=== PATIENT | female | born 1960 | race Caucasian/White ===

== ENCOUNTER 2016-06-19 19:10 | Emergency (ER) | payer MEDICAID ==
[~2016-06-19] VITALS: Ht 157.5 cm; Wt 90.7 kg
[~2016-06-19 19:10] MED LIST: ALBU17AE23 IH; AMIT25TA9 PO; AMIT75TA2 PO; ARPZ20T; AZIT-21 PO; B/P; CETI10CA PO; CETI10TA17 PO; CIPR-225 PO; CIPR500T78 PO; CPR500T PO; DICY20TA10 PO; ELIMITE TOP; FLUT16SP22 NS; HYDR-1231 PO; HYDR-34; HYDR-700 PO; HYDR50CA3 PO; IVER3TAB2 PO; LORA10TA7 PO; MECL-106 PO; MOME15CR TP; MONT10TA24; MONT10TA24 PO; NAPR-243 PO; NAPR250T34; NAPR500T3 PO; OMEP40CA36 PO; ONDA2VIA PO; ONDN4T PO; PERM60CR4 TP; PRD20T PO; PROP1TAB77; PROP1TAB77 PO; PROP40TA5 PO; RANI150C11 PO; RANI150T11 PO; RT-ALBUINH INH; SNN187T PO; SULF-222 PO; SULF1TAB34 PO; TRAM50TA2 PO; TRAZ150T42; [UNRECOGNIZED DRUG - CODE] PO; [UNRECOGNIZED DRUG - CODE] TP
--- NOTE | 2016-06-19 19:23 | ED GI ---
General Chief Complaint: Abdominal/GI Problems Stated Complaint: RECTAL BLEEDING, PAIN Nursing Triage Note: patient reports having RLQ abdomen pain x 1, patient reports pain is with with BM and they stink real bad, patient reports her BM smells bad Sepsis Screen: Possible Sepsis Risk Source of Information: Patient Exam Limitations: No Limitations History of Present Illness Time Seen By Provider: 19:23 Initial Comments To ER with right lower quadrant abdominal pain for one week. States that she has increased rectal pain with each bowel movement and bleeding. Allergies and Home Medications Allergies Coded Allergies: Penicillins (Verified Allergy, Unknown, 08/20/15) tuberculin, purified protein deriva (Verified Adverse Reaction, Mild, 08/19) Home Medications Albuterol Sulfate 8.5 Gm Hfa.aer.ad 2 PUFF INH Q6H PRN PRN SHORTNESS OF BREATH ( Reported) Amitriptyline HCl 25 Mg Tablet 75 MG PO HS (Reported) TAKES 3 (25MG) TABLETS Cetirizine HCl 10 Mg Tablet 10 MG PO DAILY (Reported) Fluticasone Propionate 16 Gm [place].susp 1 SPRAY NS BID (Reported) Meclizine HCl 25 Mg Tablet 25 MG PO QID PRN PRN NAUSEA/DIZZINESS (Reported) Montelukast Sodium 10 Mg Tablet 10 MG PO HS (Reported) Naproxen 500 Mg Tablet 500 MG PO BID (Reported) Omeprazole 40 Mg Capsule.dr 40 MG PO DAILY (Reported) Propranolol HCl 40 Mg Tablet 40 MG PO BID (Reported) Ranitidine HCl 150 Mg Tablet 150 MG PO BID (Reported) Sulfamethoxazole/Trimethoprim 1 Each Tablet #10 1 EACH PO BID Prescribed by: BISI BUCK on 06/19/162113 Review of Systems Constitutional: see HPINo chills, No fever EENTM: No Symptoms Reported Respiratory: No Symptoms Reported Cardiovascular: No Symptoms Reported Gastrointestinal: See HPI Abdominal Pain Genitourinary: No Symptoms Reported Musculoskeletal: no symptoms reported Skin: no symptoms reported Psychiatric/Neurological: No Symptoms Reported Endocrine: No Symptoms Reported Hematologic/Lymphatic: No Symptoms Reported Past Jojkvxb-Sggzsh-Atciyh Hx Patient Social History Alcohol Use: Denies Use Recreational Drug Use: No Smoking Status: Never a Smoker Recent Foreign Travel: No Contact w/Someone Who Travel: No Recent Infectious Disease Expo: No Recent Hopitalizations: No Immunizations Up To Date Tetanus Booster (TDap): Unknown Date of Pneumonia Vaccine: Feb 01, 2012 Date of Influenza Vaccine: Jan 31, 2014 Seasonal Allergies Seasonal Allergies: No Surgeries HX Surgeries: Yes Surgeries: Appendectomy, Section, Gallbladder, 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, Oophorectomy, 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 Respiratory Hx Respiratory Disorders: Yes Respiratory Disorders: Asthma, Sleep Apnea, COPD Cardiovascular Hx Cardiac Disorders: Yes Cardiac Disorders: Hypertension, Syncope Neurological Hx Neurological Disorders: Yes Neurological Disorders: Headaches /Migraines, Seizure Disorder, Vertigo Reproductive System Hx Reproductive Disorders: Yes (Hyst) Sexually Transmitted Disease: No HIV/AIDS: No Female Reproductive Disorders: Denies 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, 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 Genitourinary Hx Genitourinary Disorders: Yes Genitourinary Disorders: UTI-Chronic Gastrointestinal Hx Gastrointestinal Disorders: No Gastrointestinal Disorders: Ulcer Musculoskeletal Hx Musculoskeletal Disorders: No Musculoskeletal Disorders: Chronic Back Pain Endocrine Hx Endocrine Disorders: No Endocrine Disorders: Diabetes, Non-Insulin dep HEENT HX ENT Disorders: No HEENT Disorders: Tinnitis Loss of Vision: Denies Hearing Impairment: Denies Cancer Hx Cancer: No Psychosocial Hx Psychiatric Problems: Yes (EXTENSIVE PSYCH ISSUES, MULTIPLE PSYCH ADMITS, INCLUDING [place]) Behavioral Health Disorders: Anxiety, Suicide Attempts, Depression Integumentary HX Skin/Integumentary Disorder: No Blood Transfusions Hx Blood Disorders: No Adverse Reaction to a Blood Tr: No Family Medical History Significant Family History: No Pertinent Family Hx Family Medial History: Congenital heart disease G8 SISTER (HOLE IN HEART ) Neoplasm 19 MOTHER (STOMACH ) G8 BROTHER (STOMACH) Physical Exam Vital Signs VS - Last 72 Hours, by Label 06/19/16 06/19/16 19:15 20:28 Temp 100.2 98.7 Pulse 128 109 Resp 24 18 B/P 147/117 147/102 Pulse Ox 98 98 O2 Delivery Room Air Room Air Capillary Refill : Less Than 3 Seconds General Appearance: WD/WN no apparent distress HEENT: PERRL/EOMI normal ENT inspection Neck: non-tender full range of motion Respiratory: no respiratory distress no accessory muscle use Cardiovascular: no murmur tachycardia Gastrointestinal: normal bowel sounds soft tenderness (rlq) Extremities: normal range of motion non-tender Neurologic/Psychiatric: alert normal mood/affect oriented x 3 other (very anxious appearing, tearful and crying, talks constantly, moans) Skin: normal color warm/dry Progress/Results/Core Measures Results/Orders Lab Results Laboratory Tests Test 06/19/16 17:15 06/19/16 19:14 Range/Units Alanine Aminotransferase (ALT/SGPT) 33 0-55 U/L Albumin 4.6 H 3.2-4.5 G/DL Alkaline Phosphatase 73 40-136 U/L Anion Gap 16 H 5-14 MMOL/L Aspartate Amino Transf (AST/SGOT) 23 5-34 U/L BUN/Creatinine Ratio 13 Band Neutrophils 1 % Basophils # (Auto) 0.0 0.0-0.1 10^3/uL Basophils % (Manual) 0 % Basophils (%) (Auto) 0 0-10 % Blood Morphology Comment NORMAL Blood Urea Nitrogen 13 7-18 MG/DL Calcium Level 9.6 8.5-10.1 MG/DL Carbon Dioxide Level 19 L 21-32 MMOL/L Chloride Level 106 98-107 MMOL/L Creatinine 1.01 0.60-1.30 MG/DL Eosinophils # (Auto) 0.2 0.0-0.3 10^3/uL Eosinophils % (Manual) 1 % Eosinophils (%) (Auto) 1 0-10 % Estimat Glomerular Filtration Rate 57 Glucose Level 122 H 70-105 MG/DL Hematocrit 37 35-52 % Hemoglobin 12.7 11.5-16.0 G/DL Lipase 12 8-78 U/L Lymphocytes # (Auto) 5.1 H 1.0-4.0 X 10^3 Lymphocytes % (Manual) 42 % Lymphocytes (%) (Auto) 29 12-44 % Mean Corpuscular Hemoglobin 31 25-34 PG Mean Corpuscular Hemoglobin Concent 34 32-36 G/DL Mean Corpuscular Volume 90 80-99 FL Mean Platelet Volume 8.4 7.4-10.4 FL Monocytes # (Auto) 1.1 H 0.0-1.0 X 10^3 Monocytes % (Manual) 5 % Monocytes (%) (Auto) 7 0-12 % Neutrophils # (Auto) 11.0 H 1.8-7.8 X 10^3 Neutrophils % (Manual) 51 % Neutrophils (%) (Auto) 63 42-75 % Platelet Count 443 H 130-400 10^3/uL Potassium Level 4.0 3.6-5.0 MMOL/L Red Blood Count 4.11 L 4.35-5.85 10^6/uL Red Cell Distribution Width 13.4 10.0-14.5 % Sodium Level 141 135-145 MMOL/L Total Bilirubin 0.4 0.1-1.0 MG/DL Total Protein 7.7 6.4-8.2 G/DL White Blood Count 17.4 H 4.3-11.0 10^3/uL Ur Tricyclic Antidepressants Screen NEGATIVE NEGATIVE Urine Amphetamines Screen NEGATIVE NEGATIVE Urine Bacteria FEW H /HPF Urine Barbiturates Screen NEGATIVE NEGATIVE Urine Benzodiazepines Screen NEGATIVE NEGATIVE Urine Bilirubin NEGATIVE NEGATIVE Urine Cannabinoids Screen NEGATIVE NEGATIVE Urine Casts NONE /LPF Urine Clarity VERY CLOUDY H Urine Cocaine Screen NEGATIVE NEGATIVE Urine Color YELLOW Urine Crystals NONE /LPF Urine Culture Indicated YES Urine Glucose (UA) NEGATIVE NEGATIVE Urine Ketones 1+ H NEGATIVE Urine Leukocyte Esterase 3+ H NEGATIVE Urine Methadone Screen NEGATIVE NEGATIVE Urine Methamphetamines Screen NEGATIVE NEGATIVE Urine Mucus NEGATIVE /LPF Urine Nitrite NEGATIVE NEGATIVE Urine Opiates Screen NEGATIVE NEGATIVE Urine Oxycodone Screen NEGATIVE NEGATIVE Urine Phencyclidine Screen NEGATIVE NEGATIVE Urine Propoxyphene Screen NEGATIVE NEGATIVE Urine Protein 2+ H NEGATIVE Urine RBC 5-10 H /HPF Urine RBC (Auto) 2+ H NEGATIVE Urine Specific [place] 1.025 H 1.016-1.022 Urine Squamous Epithelial Cells 5-10 /HPF Urine Urobilinogen NORMAL NORMAL MG/DL Urine WBC 50-100 H /HPF Urine pH 5 5-9 My Orders Orders-BISI BUCK APRN Cbc With Automated Diff (06/19/16 19:13) Comprehensive Metabolic Panel (06/19/16 19:13) Lipase (06/19/16 19:13) Ua Culture If Indicated (06/19/16 19:13) Drug Screen Stat (Urine) (06/19/16 19:13) Saline Lock/Iv-Start (06/19/16 19:13) Ns Iv 1000 Ml (Sodium Chloride 0.9%) (06/19/16 19:30) Fentanyl Injection (Sublimaze Injection (06/19/16 19:30) Manual Differential (06/19/16 17:15) Urine Culture (06/19/16 19:14) Ct Abdomen/Pelvis W Wo (06/19/16 19:52) Iohexol Injection (Omnipaque 350 Mg/Ml 1 (06/19/16 20:00) Ns (Ivpb) (Sodium Chloride 0.9% Ivpb Bag (06/19/16 20:00) Fentanyl Injection (Sublimaze Injection (06/19/16 20:00) Ceftriaxone Injection (Rocephin Injectio (06/19/16 20:45) Lorazepam Injection (Ativan Injection) (06/19/16 20:45) Ketorolac Injection (Toradol Injection) (06/19/16 20:45) Medications Given in ED Current Medications Medications Dose Ordered Sig/Anabel Route Start Time Stop Time Status Last Admin Dose Admin Ceftriaxone Sodium/Sodium Chloride 50 ml @ 100 mls/hr ONCE ONCE IV 06/19/16 20:45 06/19/16 21:14 DC 06/19/16 20:51 100 MLS/HR Fentanyl Citrate 50 mcg ONCE ONCE IVP 06/19/16 19:30 06/19/16 19:31 DC 06/19/16 19:35 50 MCG Fentanyl Citrate 50 mcg 50 mcg ONCE ONCE IVP 06/19/16 20:00 06/19/16 20:01 DC 06/19/16 20:00 50 MCG Iohexol 100 ml ONCE ONCE IV 06/19/16 20:00 06/19/16 20:19 DC 06/19/16 19:56 100 ML Ketorolac Tromethamine 30 mg ONCE ONCE IVP 06/19/16 20:45 06/19/16 20:46 DC 06/19/16 20:51 30 MG Lorazepam 1 mg ONCE ONCE IVP 06/19/16 20:45 06/19/16 20:46 DC 06/19/16 20:51 1 MG Sodium Chloride 100 ml ONCE ONCE IV 06/19/16 20:00 06/19/16 20:19 DC 06/19/16 19:56 80 ML Vital Signs/I&O Vital Sign - Last 12Hours 06/19/16 06/19/16 19:15 20:28 Temp 100.2 98.7 Pulse 128 109 Resp 24 18 B/P 147/117 147/102 Pulse Ox 98 98 O2 Delivery Room Air Room Air Blood Pressure Mean: 127 Diagnostic Imaging Diagonstic Imaging: CT Comments NAME: LAVELLE RIVERS [facility] REC#: [id number] PT STATUS: REG ER : 1960 PHYSICIAN: BISI BUCK APRN ADMIT DATE: 06/19/16/ER Signed Date of Exam:06/19/16 CT ABDOMEN/PELVIS W WO PROCEDURE: CT abdomen and pelvis with and without contrast. TECHNIQUE: Precontrast acquisitions were acquired through the abdomen and pelvis. Multiple contiguous axial images were obtained through the abdomen and pelvis after the administration of intravenous contrast. INDICATION: Right lower quadrant abdominal pain. COMPARISON: 01/06/2016. FINDINGS: The lung bases are clear. Gallbladder is surgically absent. The liver, spleen, pancreas, adrenal glands, kidneys, vascular structures, and bowel are normal. There is no free air or free fluid. The appendix and uterus are surgically absent. Distal ureters and urinary bladder are grossly unremarkable. Osseous structures are intact. There is no inflammatory process. IMPRESSION: Surgically absent gallbladder, appendix, and uterus. Negative CT abdomen and pelvis. Dictated by: Dictated on workstation # [id number] Dict: 06/19/162026 Trans: 06/19/162052 [id number] Interpreted by: YASSINE BRIONES Electronically signed by: YASSINE BRIONES 06/19/162055 Departure Communication Progress Notes 2044-continues to cry in bed. Advised her that she does not have an appendix to cause pain. We will give additional pain medication including Toradol, Ativan to help her relax and Rocephin for the bladder infection and discharge home. 2111-heart rate now less than 100, blood pressure 120/60, patient laughing and smiling and states that she feels much better. I did notify Dr. Arroyo of exam and findings and my plan to discharge the patient home. She will arrange for follow-up next week. Impression Impression: Primary Impression: Urinary tract infection Qualified Code: N30.01 - Acute cystitis with hematuria Additional Impression: Anxiety Disposition: HOME, SELF-CARE Condition: Stable Departure-Patient Inst. Decision time for Depature: 21:13 Referrals: EDUARDO GRUBER (PCP/Family) Primary Care Physician Patient Instructions: Urinary Tract Infection, Adult (DC) Add. Discharge Instructions: 1. Drink plenty of fluids 2. Take your antibiotics as directed 3. Return to ER for any worsening All discharge instructions reviewed with patient and/or family. Voiced understanding. Scripts Sulfamethoxazole/Trimethoprim (Bactrim Ds Tablet)1 Each Tablet1 Each PO BID #10 TAB Prov:BUCKBISI CHAMBERS APRN 06/19/16 BISI BUCK APRN Jun 19, 2016 19:23
[2016-06-19 19:26] LABS: BASOPHILS % (AUTO) 0 % (0-10); EOSINOPHILS # (AUTO) 0.2 10^3/uL (0.0-0.3); EOSINOPHILS % (AUTO) 1 % (0-10); LYMPHOCYTES # (AUTO) 5.1 X 10^3 (1.0-4.0); LYMPHOCYTES % (AUTO) 29 % (12-44); MEAN CORPUSCULAR HEMOGLOBIN 31 PG (25-34); MEAN CORPUSCULAR HGB CONC 34 G/DL (32-36); MEAN CORPUSCULAR VOLUME 90 FL (80-99); MEAN PLATELET VOLUME 8.4 FL (7.4-10.4); MONOCYTES # (AUTO) 1.1 X 10^3 (0.0-1.0); MONOCYTES % (AUTO) 7 % (0-12); NEUTROPHILS % (AUTO) 63 % (42-75); PLATELET COUNT 443 10^3/uL (130-400); RED BLOOD COUNT 4.11 10^6/uL (4.35-5.85); RED CELL DISTRIBUTION WIDTH 13.4 % (10.0-14.5); WHITE BLOOD COUNT 17.4 10^3/uL (4.3-11.0)
[2016-06-19 19:27] LABS: BILIRUBIN,URINE NEGATIVE (NEGATIVE); KETONES,URINE 1+ (NEGATIVE); LEUKOCYTE ESTERASE ,URINE 3+ (NEGATIVE); NITRITE,URINE NEGATIVE (NEGATIVE); PH,URINE 5 (5-9); PROTEIN,URINE 2+ (NEGATIVE); UROBILINOGEN,URINE NORMAL (NORMAL)
[2016-06-19] MEDS ORDERED: fentaNYL INJECTION 100 MCG/2 ML AMP IVP ONE ×2 (19:30→20:00)
[2016-06-19] MEDS ORDERED: NS IV 1000 ML 1,000 ML IV SCH (19:30)
[2016-06-19 19:40] LABS: WBC,URINE 50-100 /HPF
[2016-06-19 19:43] LABS: BAND NEUTROPHILS 1 %; BASOPHILS % (MANUAL) 0 %; EOSINOPHILS % (MANUAL) 1 %; LYMPHOCYTES % (MANUAL) 42 %; NEUTROPHILS % (MANUAL) 51 %
[2016-06-19 19:46] LABS: ALBUMIN 4.6 G/DL (3.2-4.5); BILIRUBIN,TOTAL 0.4 MG/DL (0.1-1.0); CALCIUM 9.6 MG/DL (8.5-10.1); CREATININE SERUM 1.01 MG/DL (0.60-1.30); TOTAL PROTEIN 7.7 G/DL (6.4-8.2)
[2016-06-19] MEDS ORDERED: NS 100 ML (IVPB) BAG IV ONE (20:00)
[2016-06-19] MEDS ORDERED: IOHEXOL 350 MG/ML 100 ML (OMNIPAQUE 350) VIAL IV ONE (20:00)
[2016-06-19 20:28] VITALS: BP 147/102
--- NOTE | 2016-06-19 20:34 | Diagnostic Imaging Report ---
PROCEDURE: CT abdomen and pelvis with and without contrast. TECHNIQUE: Precontrast acquisitions were acquired through the abdomen and pelvis. Multiple contiguous axial images were obtained through the abdomen and pelvis after the administration of intravenous contrast. INDICATION: Right lower quadrant abdominal pain. COMPARISON: 01/06/2016. FINDINGS: The lung bases are clear. Gallbladder is surgically absent. The liver, spleen, pancreas, adrenal glands, kidneys, vascular structures, and bowel are normal. There is no free air or free fluid. The appendix and uterus are surgically absent. Distal ureters and urinary bladder are grossly unremarkable. Osseous structures are intact. There is no inflammatory process. IMPRESSION: Surgically absent gallbladder, appendix, and uterus. Negative CT abdomen and pelvis. Dictated by: Dictated on workstation # [id number]
[2016-06-19] MEDS ORDERED: KETOROLAC 30 MG/ML VIAL IVP ONE (20:45)
[2016-06-19] MEDS ORDERED: cefTRIAXone INJECTION 1,000 MG in NS (IVPB) 50 ML IV ONE (20:45)
[2016-06-19] MEDS ORDERED: LORazepam INJ 2 MG/ML (ATIVAN) VIAL IVP ONE (20:45)
[2016-06-19] MEDS ORDERED: SULF1TAB35 PO (21:14)
[2016-06-19 21:23] VITALS: BP 127/86
[2016-06-22] MEDS ORDERED: CLIN300C11 PO (10:54)
== END 2016-06-19 21:25 | disposition home or self-care (01) ==
LOC: EDUNIT# 19:10 → ER 19:12
DX: N39.0 Urinary tract infection, site not specified (principal); F41.9 Anxiety disorder, unspecified; J44.9 Chronic obstructive pulmonary disease, unspecified; I10 Essential (primary) hypertension; E11.9 Type 2 diabetes mellitus without complications; Z90.49 Acquired absence of other specified parts of digestive tract; Z90.710 Acquired absence of both cervix and uterus; Z90.89 Acquired absence of other organs; Z79.899 Other long term (current) drug therapy
CPT/HCPCS: 36415; 74178; 80053; 80306; 81000; 83690; 85007; 85027; 87088; 96361; 96365; 96375

== ENCOUNTER 2016-07-08 09:22 | Outpatient (CLI) | payer MEDICAID ==
[~2016-07-08] VITALS: Ht 157.5 cm; Wt 90.7 kg
[~2016-07-08 09:22] MED LIST changes: +CLIN300C11 PO; +SULF1TAB35 PO
== END 2016-07-08 09:49 ==
LOC: PREOP 09:22
PROVIDERS: ATTEND Surgery
DX: Z01.818 Encounter for other preprocedural examination (principal); K62.89 Other specified diseases of anus and rectum; K62.5 Hemorrhage of anus and rectum

== ENCOUNTER 2016-07-13 09:22 | Day surgery (SDC) | payer MEDICAID ==
[~2016-07-13] VITALS: Ht 157.5 cm; Wt 84.4 kg
[2016-07-13 09:40] VITALS: BP 174/94
[2016-07-13] MEDS ORDERED: MIDAZOLAM 2 MG/2 ML (VERSED) VIAL IVP PRN ×2 (09:45)
[2016-07-13] MEDS ORDERED: NS IV 500 ML 500 ML IV ONE (09:45)
[2016-07-13] MEDS ORDERED: NS IV 500 ML 500 ML IV PRN (09:45)
[2016-07-13] MEDS ORDERED: fentaNYL INJECTION 100 MCG/2 ML AMP IVP PRN ×2 (09:45)
[2016-07-13] MEDS ORDERED: NALOXONE 0.4 MG/ML 1 ML (NARCAN) VIAL IVP PRN ×2 (09:45)
[2016-07-13] MEDS ORDERED: FLUMAZENIL (ROMAZICON) 0.1 MG/ML 5 ML VIAL INJ PRN ×2 (09:45)
--- NOTE | 2016-07-13 10:28 | Pre-Op Note & Conscious Sedat ---
Pre-Operative Progress Note H&P Reviewed The H&P was reviewed, patient examined and no changes noted. Date H&P Reviewed: Jul 13, 2016 Time H&P Reviewed: 10:27 Pre-Op Diagnosis: rectal bleeding Conscious Sedation Pre-Proced ASA Class: 3 Airway Mallampati Classification: (apache appropriate class) I. II. III, IV Lungs Heart ASA score ASA 1: a normal healthy patient ASA 2: a patient with a mild systemic disease (mid diabetes, controlled hypertension, obesity ASA 3: a patient with a severe systemic disease that limits activity (angina , COPD, prior Myocardial infarction) ASA 4: a patient with an incapacitating disease that is a constant threat to life (CHF, renal failure) ASA 5: a moribund patient not expected to survive 24 hrs. (ruptured aneurysm) ASA 6: a declared brain patient whose organs are being harvested. For emergent operations, add the letter E after the classification Grade 2 Sedation Plan: Discussed options with patient/fam Note The patient is an appropriate candidate to undergo the planned procedure, sedation, and anesthesia. The patient immediately re-assessed prior to indication. ARUN CABRERA MD Jul 13, 2016 10:28 am
[2016-07-13] MEDS ORDERED: MIDAZOLAM 2 MG/2 ML (VERSED) VIAL ONE (10:46)
[2016-07-13] MEDS ORDERED: proPOfol 200 MG/20 ML (DIPRIVAN) VIAL IV ONE (10:46)
--- NOTE | 2016-07-13 11:02 | Progress Note-Post Operative ---
Post-Operative Progess Note Pre-Operative Diagnosis rectal bleeding Post-Operative Diagnosis inadequate bowel prep Post-Op Procedure Note Date of Procedure: Jul 13, 2016 Name of Procedure: incomplete colonoscopy Anesthesia Type conscious sedation ARUN CABRERA MD Jul 13, 2016 11:02 am
--- NOTE | 2016-07-13 11:04 | Discharge Inst-Simple/Standard ---
Discharge Inst-Standard Discharge Medications New, Converted or Re-Newed RX: Other Patient Instructions/Follow Up Plan of Care/Instructions/FU: please reschedule with 2 days of bowel preparation Activity as Tolerated: Yes Discharge Diet: No Restrictions ARUN CABRERA MD Jul 13, 2016 11:04
[2016-07-13 11:25] VITALS: BP 140/68
[2016-07-13 11:55] VITALS: BP 140/68
--- NOTE | 2016-07-13 11:59 | OPERATIVE REPORT ---
PROCEDURE PHYSICIAN: ARUN CABRERA DATE OF PROCEDURE: 07/13/2016 PROCEDURE: Incomplete colonoscopy. SURGEON: Dr. Cabrera. INDICATION FOR THE PROCEDURE: This lady came in for colonoscopy to evaluate rectal bleeding. Informed consent was obtained after reviewing the procedure in detail. DESCRIPTION OF PROCEDURE: She was placed in left lateral decubitus position and her vital signs were monitored. Conscious sedation was achieved by our INSULATION CUTTER, using propofol infusion. Digital rectal examination revealed solid stools. The flexible colonoscope was introduced into the rectum and advanced to the distal sigmoid colon. Bowel preparation was very poor. Therefore, further examination could not be completed. Solid fecal material was encountered throughout the rectum and the distal sigmoid colon. She tolerated the procedure reasonably well and was taken back to the nursing area in a stable condition. IMPRESSION: 1. Rectal bleeding. 2. Incomplete colonoscopy due to poor bowel preparation. RECOMMENDATION: Repeat with 2 days of bowel preparation. Job ID: [id number] Dictated Date: 07/13/2016 11:01:59 Rod Machine Operator Date: 07/13/2016 11:56:34 / luisa CISSE
[2016-07-13 14:05] VITALS: BP 140/68
== END 2016-07-13 12:05 | disposition home or self-care (01) ==
LOC: ENDO 09:22
PROVIDERS: ATTEND Surgery
DX: K62.5 Hemorrhage of anus and rectum (principal)
CPT/HCPCS: 82962

== ENCOUNTER 2016-07-23 06:20 | Outpatient (CLI) | payer MEDICAID ==
[~2016-07-23] VITALS: Ht 157.5 cm; Wt 84.4 kg
== END 2016-07-23 17:02 ==
LOC: PREOP 06:20
PROVIDERS: ATTEND Surgery
DX: Z01.818 Encounter for other preprocedural examination (principal); K62.89 Other specified diseases of anus and rectum; K62.5 Hemorrhage of anus and rectum

== ENCOUNTER 2016-07-27 09:45 | Day surgery (SDC) | payer MEDICAID ==
[2016-07-27 10:00] VITALS: BP 132/94
[2016-07-27] MEDS ORDERED: fentaNYL INJECTION 100 MCG/2 ML AMP IVP PRN (10:15)
[2016-07-27] MEDS ORDERED: FLUMAZENIL (ROMAZICON) 0.1 MG/ML 5 ML VIAL INJ PRN (10:15)
[2016-07-27] MEDS ORDERED: NS IV 500 ML 500 ML IV ONE (10:15)
[2016-07-27] MEDS ORDERED: NALOXONE 0.4 MG/ML 1 ML (NARCAN) VIAL IVP PRN (10:15)
[2016-07-27] MEDS ORDERED: MIDAZOLAM 2 MG/2 ML (VERSED) VIAL IVP PRN (10:15)
[2016-07-27] MEDS ORDERED: proPOfol 200 MG/20 ML (DIPRIVAN) VIAL IV ONE (10:45)
[2016-07-27] MEDS ORDERED: MIDAZOLAM 2 MG/2 ML (VERSED) VIAL ONE ×2 (10:45→10:58)
[2016-07-27 11:20] VITALS: BP 124/76
--- NOTE | 2016-07-27 11:23 | Progress Note-Pre Operative ---
Pre-Operative Progress Note H&P Reviewed The H&P was reviewed, patient examined and no changes noted. Date H&P Reviewed: Jul 27, 2016 Time H&P Reviewed: 09:55 Pre-Operative Diagnosis: rectal pain and bleeding ARUN CABRERA MD Jul 27, 2016 11:23 am
--- NOTE | 2016-07-27 11:23 | Progress Note-Post Operative ---
Post-Operative Progess Note Pre-Operative Diagnosis rectal pain and bleeding Post-Operative Diagnosis internal hemorrhoids. Very few sigmoid diverticula Post-Op Procedure Note Date of Procedure: Jul 27, 2016 Name of Procedure: colonoscopy to cecum Anesthesia Type sedation ARUN CABRERA MD Jul 27, 2016 11:23 am
--- NOTE | 2016-07-27 11:25 | Discharge Inst-Simple/Standard ---
Discharge Inst-Standard Discharge Medications New, Converted or Re-Newed RX: Other Patient Instructions/Follow Up Plan of Care/Instructions/FU: follow-up with her primary Activity as Tolerated: Yes Discharge Diet: No Restrictions ARUN CABRERA MD Jul 27, 2016 11:25 am
[2016-07-27 11:50] VITALS: BP 132/84
[2016-07-27 12:00] VITALS: BP 132/84
--- NOTE | 2016-07-27 12:32 | PROCEDURE REPORT ---
PROCEDURE PHYSICIAN: ARUN CABRERA DATE OF PROCEDURE: 07/27/2016 PROCEDURE: Colonoscopy. SURGEON: Wiley INDICATION FOR THE PROCEDURE: This lady came in for colonoscopy to evaluate rectal pain and bleeding. Informed consent was obtained after reviewing the procedure in detail. DESCRIPTION OF PROCEDURE: She was placed in left lateral decubitus position and her vital signs were monitored. Conscious sedation was achieved using propofol infusion by our PREPARER MAKING DEPARTMENT. Digital rectal examination was unremarkable. The colonoscope was then introduced into the rectum and advanced to the cecum. The quality of bowel preparation was excellent. The scope was then withdrawn slowly and the mucosa examined in a systematic fashion. FINDINGS: 1. Internal hemorrhoids, the possible source of bleeding. 2. Very few sigmoid diverticulae. She tolerated the procedure well and was taken back to the nursing area in a stable condition. IMPRESSION: 1. Rectal bleeding due to hemorrhoids. Could be treated conservatively. 2. Very few sigmoid diverticulae. Job ID: [id number] Dictated Date: 07/27/2016 11:21:37 Flavorer Date: 07/27/2016 12:28:44 / fuentes CISSE
--- OUTSIDE RECORDS SUMMARY | 2016-08-11 17:44 | XMS REPORT ---
Author Author EDUARDO GRUBER Organization [employer] Address Unknown Phone Unavailable Care Team Providers Care Hospice Home Health Aide Name Role Phone EDUARDO GRUBER CP Unavailable Allergies No Known Allergies Problems Problem Type Condition Code Onset Dates Condition Status Problem Hypertension I10 Active Problem Vaginitis N76.0 Active Problem Headache R51 Active Problem Hypoxemia R09.02 Active Problem Asthma 493.90 Active Medications No Known Medications Results No Known Results Summary Purpose [employer] Submission
--- OUTSIDE RECORDS SUMMARY | 2016-08-11 17:44 | XMS REPORT ---
Author Author EDUARDO GRUBER Organization [employer] Address Unknown Phone Unavailable Care Team Providers Care Career Development Manager Name Role Phone EDUARDO GRUBER CP Unavailable Allergies No Known Allergies Problems Problem Type Condition Code Onset Dates Condition Status Problem Routine gynecological examination V72.31 Active Problem Pain in joint, forearm 719.43 Active Problem Galactorrhea not associated with childbirth 611.6 Active Problem Other specified disorder of skin 709.8 Active Problem Cellulitis and abscess of unspecified site 682.9 Active Problem Benign paroxysmal positional vertigo 386.11 Active Problem Herpes zoster without mention of complication 053.9 Active Problem Impetigo 684 Active Problem Asthma 493.90 Active Problem Candidiasis of skin and nails 112.3 Active Problem Need for prophylactic vaccination and inoculation, Influenza V04.81 Active Problem Allergic rhinitis due to pollen 477.0 Active Problem Abdominal pain, unspecified site 789.00 Active Problem Dizziness and giddiness 780.4 Active Problem Unspecified otalgia 388.70 Active Problem Cough 786.2 Active Problem Acute upper respiratory infections of unspecified site 465.9 Active Problem Family history of malignant neoplasm of breast V16.3 Active Problem Unspecified breast screening V76.10 Active Problem Urinary tract infection, site not specified 599.0 Active Problem Special screening for malignant neoplasms, colon V76.51 Active Problem Dyspareunia 625.0 Active Problem Other sign and symptom in breast 611.79 Active Medications No Known Medications Results No Known Results Summary Purpose [employer] Submission
--- OUTSIDE RECORDS SUMMARY | 2016-08-11 17:44 | XMS REPORT ---
Author Author SHIVA RICK Organization [facility] Address [address] [place] [address] Care Team Providers Care General Operations Manager Name Role Phone SHIVA RICK Unavailable PROBLEMS Type Condition ICD9-CM Code [id number] Code Onset Dates Condition Status SNOMED Code Problem Headache R51 Active 51576365 Problem Hypertension I10 Active 64597754 Problem Asthma 493.90 Active 908707228 Problem Vaginitis N76.0 Active 21525649 Problem Hypoxemia R09.02 Active 142138108 ALLERGIES Unknown Allergies SOCIAL HISTORY No smoking Hx information available PLAN OF CARE VITAL SIGNS MEDICATIONS Medication Instructions Dosage Frequency Start Date End Date Duration Status Fluticasone Propionate 50 MCG/ACT INSTILL ONE SPRAY INTO EACH NOSTRIL TWICE DAILY 30 Active Ranitidine HCl 150 MG TAKE 1 TABLET BY MOUTH TWICE DAILY Active propranolol 40 mg by oral route 2 times a day 1 tablet 12h May, 90 Active Meclizine HCl 25 MG TAKE 1 TABLET BY MOUTH FOUR TIMES DAILY NEEDED 15 Active Blood Pressure Monitor/M Cuff 1 Check Blood Pressure 24h August, Active ProAir HFA 108 (90 Base) MCG/ACT INHALE TWO PUFFS BY MOUTH EVERY 6 HOURS NEEDED FOR SHORTNESS OF BREATH OR COUGH Active Omeprazole 40 mg Orally Once a day 1 capsule 24h 30 Active Singulair 10 MG Orally Once a day 1 tablet in the evening 24h Active Cetirizine HCl 10 mg Orally Once a day for itching 1 tablet as needed Aug, 30 Active Naproxen 500 MG TAKE 1 TABLET BY MOUTH TWICE DAILY WITH FOOD 30 30 Active Amitriptyline HCl 25 MG TAKE 3 TABLETS BY MOUTH AT BEDTIME NEEDED FOR SLEEP OR PAIN 30 30 Active RESULTS No Results PROCEDURES No Known procedures IMMUNIZATIONS No Known Immunizations
--- OUTSIDE RECORDS SUMMARY | 2016-08-11 17:45 | XMS REPORT ---
Author Author EDUARDO GRUBER [facility] eClinicalWorks Address Unknown Phone Unavailable Care Team Providers Care Metallurgist Process Name Role Phone EDUARDO GRUBER CP Unavailable Allergies, Adverse Reactions, Alerts Substance Reaction Event Type Penicillin V Potassium Info Not Available Drug Allergy Hydrocodone-Acetaminophen Info Not Available Drug Allergy Cyclobenzaprine HCl Info Not Available Drug Allergy Cipro Info Not Available Drug Allergy Tramadol Info Not Available Drug Allergy Problems Problem Type Condition Code Onset Dates Condition Status Assessment Gastritis K29.70 Active Assessment Urination pain R30.9 Active Problem Hypertension I10 Active Problem Vaginitis N76.0 Active Problem Headache R51 Active Assessment Rash R21 Active Assessment Vertigo R42 Active Problem Hypoxemia R09.02 Active Problem Asthma 493.90 Active Medications Medication Code System Code Instructions Start Date End Date Status Dosage Nexium [facility] [address]-08 40 mg Orally Once a day for one month only August 19, 2015 1 capsule Montelukast Sodium [facility] [address]-11 10 MG TAKE ONE TABLET BY MOUTH AT BEDTIME Cetirizine HCl [facility] [address]-09 10 mg Orally Once a day for itching August 19, 2015 1 tablet as needed Loratadine [facility] [address]-81 10 MG Orally Once a day for cough and congestion July 08, 2015 1 tablet Ranitidine HCl [facility] [address]-96 150 MG TAKE 1 TABLET BY MOUTH TWICE DAILY PredniSONE [facility] [address]-54 20 mg Orally Once a day with food August 19, 2015 August 24, 2015 1 tablet Naproxen [facility] [address]-53 500 MG TAKE 1 TABLET BY MOUTH TWICE DAILY WITH FOOD Acyclovir [facility] [address]-90 400 mg Apr 24, 2013 1 tablet by Oral route 3 times per day for 10 days ProAir HFA [facility] [address]-47 108 (90 Base) MCG/ACT INHALE TWO PUFFS BY MOUTH EVERY 6 HOURS NEEDED FOR SHORTNESS OF BREATH OR COUGH Amitriptyline HCl [facility] [address]-69 25 MG TAKE 3 TABLETS BY MOUTH AT BEDTIME NEEDED FOR SLEEP OR PAIN Meclizine HCl [facility] 61150014636 25 MG TAKE 1 TABLET BY MOUTH FOUR TIMES A DAY NEEDED Fluticasone Propionate [facility] 91750355310 50 MCG/ACT INSTILL ONE SPRAY INTO EACH NOSTRIL TWICE DAILY Propranolol HCl [facility] [address]-80 40 MG Orally TAKE ONE TABLET BY MOUTH TWICE DAILY Cetirizine HCl [facility] [address]-53 10 MG Orally Once a day October 15, 2014 1 tablet as needed Procedures Procedure Coding System Code Date Office Visit, Est Pt., Level 3 CPT-4 72332 August 19, 2015 URINALYSIS, AUTO, W/O SCOPE CPT-4 48491 August 19, 2015 Vital Signs Date/Time: August 19, 2015 Temperature 98.4 F Weight 186.4 lbs Height 62 in BMI 34.09 Index Blood Pressure Diastolic 90 mmHg Blood Pressure Systolic 120 mmHg Cardiac Monitoring Heart Rate 72 bpm Results No Known Results Summary Purpose eClinicalWorks Submission
--- OUTSIDE RECORDS SUMMARY | 2016-08-11 17:45 | XMS REPORT ---
Author Author EDUARDO GRUBER [facility] eClinicalWorks Address Unknown Phone Unavailable Care Team Providers Care Probate Judge Name Role Phone EDUARDO GRUBER Unavailable Allergies, Adverse Reactions, Alerts Substance Reaction [...] N76.0 Active Problem Headache R51 Active Assessment Hypertension I10 Active Assessment Rash R21 Active Problem Hypoxemia R09.02 Active Problem Asthma 493.90 Active Medications Medication Code System Code Instructions Start Date End Date Status Dosage Omeprazole [facility] [address]-60 20 mg Orally twice a day August 26, 2015 1 capsule ProAir HFA [facility] [address]-59 108 (90 Base) MCG/ACT INHALE TWO PUFFS BY MOUTH EVERY 6 HOURS NEEDED FOR SHORTNESS OF BREATH OR COUGH Ranitidine HCl [facility] [address]-83 150 MG TAKE 1 TABLET BY MOUTH TWICE DAILY Cetirizine HCl [facility] [address]-76 10 mg Orally Once a day for itching August 19, 2015 1 tablet as needed Fluticasone Propionate [facility] 14611826662 50 MCG/ACT INSTILL ONE SPRAY INTO EACH NOSTRIL TWICE DAILY Naproxen [facility] [address]-40 500 MG TAKE 1 TABLET BY MOUTH TWICE DAILY WITH FOOD Permethrin [facility] [address]-01 5 % Externally Once a day (60 gram) August 21, 2015 to body from neck to toes. Avoid mucous membranes. Shower off in 8- 10 hours Procedures Procedure Coding System Code Date Office Visit, Est Pt., Level 3 CPT-4 04052 August 27, 2015 Vital Signs Date/Time: August 27, 2015 Temperature 98.3 F Weight 183.0 lbs Height 62 in BMI 33.47 Index Blood Pressure Diastolic 78 mmHg Blood Pressure Systolic 130 mmHg Cardiac Monitoring Heart Rate 72 bpm Results No Known Results Summary Purpose eClinicalWorks Submission
--- OUTSIDE RECORDS SUMMARY | 2016-08-11 17:45 | XMS REPORT ---
Author Author EDUARDO GRUBER Organization eClinicalWorks Address Unknown Phone Unavailable Care Team Providers Care Bag End Sewer Name Role Phone EDUARDO GRUBER CP Unavailable [...]
--- OUTSIDE RECORDS SUMMARY | 2016-08-11 17:45 | XMS REPORT ---
Author SHIVA Frances Organization eClinicalWorks Address Unknown Phone Unavailable Care Team Providers Care Fishing Tool Operator Name Role Phone SHIVA MEREDITH Unavailable Allergies No Known Allergies Problems Problem Type Condition Code Onset Dates Condition Status Problem Hypertension I10 Active Problem Vaginitis N76.0 Active Problem Headache R51 Active Problem Hypoxemia R09.02 Active Problem Asthma 493.90 Active Medications Medication Code System Code Instructions Start Date End Date Status Dosage Fluticasone Propionate [facility] 23690960054 50 MCG/ACT INSTILL ONE SPRAY INTO EACH NOSTRIL TWICE DAILY ProAir HFA [facility] [address]-07 108 (90 Base) MCG/ACT INHALE TWO PUFFS BY MOUTH EVERY 6 HOURS NEEDED FOR SHORTNESS OF BREATH OR COUGH Cetirizine HCl [facility] [address]-81 10 mg Orally Once a day for itching August 19, 2015 1 tablet as needed Naproxen [facility] [address]-20 500 MG TAKE 1 TABLET BY MOUTH TWICE DAILY WITH FOOD Permethrin [facility] [address]-14 5 % Externally Once a day (60 gram) August 21, 2015 to body from neck to toes. Avoid mucous membranes. Shower off in 8- 10 hours Ranitidine HCl [facility] [address]-04 150 MG TAKE 1 TABLET BY MOUTH TWICE DAILY Propranolol HCl [facility] [address]-89 40 MG Orally TAKE ONE TABLET BY MOUTH TWICE DAILY Meclizine HCl [facility] 27554751041 25 MG TAKE 1 TABLET BY MOUTH FOUR TIMES A DAY NEEDED Results No Known Results Summary Purpose eClinicalWorks Submission
--- OUTSIDE RECORDS SUMMARY | 2016-08-11 17:45 | XMS REPORT ---
Author Author EDUARDO GRUBER Organization eClinicalWorks Address Unknown Phone Unavailable Care Team Providers Care Switch Crew Supervisor Name Role Phone EDUARDO GRUBER CP Unavailable Allergies No Known Allergies Problems Problem Type Condition Code Onset Dates Condition Status Problem Hypertension I10 Active Problem Vaginitis N76.0 Active Problem Headache R51 Active Problem Hypoxemia R09.02 Active Problem Asthma 493.90 Active Medications No Known Medications Results No Known Results Summary Purpose eClinicalWorks Submission
--- OUTSIDE RECORDS SUMMARY | 2016-08-11 17:45 | XMS REPORT ---
Author Author EDUARDO GRUBER Organization eClinicalWorks Address Unknown Phone Unavailable Care Team Providers Care Medical Records Administrator Name Role Phone EDUARDO GRUBER CP Unavailable Allergies No Known Allergies Problems Problem Type Condition ICD-9 Code Onset Dates Condition Status Problem Other sign and symptom in breast 611.79 Active Problem Galactorrhea not associated with childbirth 611.6 Active Problem Routine gynecological examination V72.31 Active Problem Benign paroxysmal positional vertigo 386.11 Active Problem Herpes zoster without mention of complication 053.9 Active Problem Allergic rhinitis due to pollen 477.0 Active Problem Impetigo 684 Active Problem Other specified disorder of skin 709.8 Active Problem Need for prophylactic vaccination and inoculation, Influenza V04.81 Active Problem Pain in joint, forearm 719.43 Active Problem Abdominal pain, unspecified site 789.00 Active Problem Candidiasis of skin and nails 112.3 Active Problem Acute upper respiratory infections of unspecified site 465.9 Active Problem Dizziness and giddiness 780.4 Active Problem Cellulitis and abscess of unspecified site 682.9 Active Problem Cough 786.2 Active Problem Dyspareunia 625.0 Active Problem Family history of malignant neoplasm of breast V16.3 Active Problem Unspecified otalgia 388.70 Active Problem Unspecified breast screening V76.10 Active Problem Urinary tract infection, site not specified 599.0 Active Problem Special screening for malignant neoplasms, colon V76.51 Active Medications No Known Medications Results No Known Results Summary Purpose eClinicalWorks Submission
--- OUTSIDE RECORDS SUMMARY | 2016-08-11 17:46 | XMS REPORT | Continuity of Care Document ---
Author Author [facility] Address Unknown Phone Unavailable Allergies Active Description Code Type Severity Reaction Onset Reported/Identified Relationship to Patient Clinical Status Yes Penicillins Drug Allergy N/A N/A 06/11/2008 Yes Penicillins Drug Allergy 06/11/2008 Yes cyclobenzaprine Drug Allergy N/A N/A 11/13/2009 Yes cyclobenzaprine Drug Allergy 11/13/2009 Yes ciprofloxacin Drug Allergy N/A N/A 02/04/2010 Yes ciprofloxacin Drug Allergy 02/04/2010 Yes hydrocodone-acetaminophen 5-325 mg tablet Drug Allergy N/A N/A 05/01/2013 Yes tramadol Drug Allergy N/A N/A 06/20/2013 Yes Penicillins [id number] Drug Allergy Unknown N/A 08/20/2015 Yes tuberculin, purified protein deriva [id number] Drug Allergy Mild N/A 08/20/2015 Yes tuberculin,purif.prot.deriv. 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 ULCER OF RIGHT THIGH RIOS 04/01/1599 TONI MA MD Ot R22.41 LOCALIZED SWELLING, MASS AND LUMP, RIGHT 05/01/2008 784.0 HEADACHE 05/01/2008 784.0 HEADACHE 05/01/2008 VANESSA SILVA, CHRISS 784.0 HEADACHE 05/01/2008 ELVIA RUIZ DO 784.0 HEADACHE 05/01/2008 ALLYN PRATT EDUARDO S 784.0 HEADACHE 05/01/2008 ALLYN PRATT EDUARDO S 784.0 HEADACHE 05/01/2008 ALLYN PRATT EDUARDO S 784.0 HEADACHE 05/01/2008 BENTLEY SARABIA APRN A 784.0 HEADACHE 05/01/2008 ALLYN CUSTOMER SERVICE ENGINEER, EDUARDO S 784.0 HEADACHE 05/01/2008 ALLYN CUSTOMER SERVICE ENGINEER, EDUARDO S 784.0 HEADACHE 05/01/2008 ALLYN CUSTOMER SERVICE ENGINEER, EDUARDO S 784.0 HEADACHE 05/01/2008 ALLYN CUSTOMER SERVICE ENGINEER, EDUARDO S 784.0 HEADACHE 05/01/2008 ALLYN CUSTOMER SERVICE ENGINEER, EDUARDO S 784.0 HEADACHE 06/11/2008 719.47 Pain In Joint Involving Ankle And Foot 06/11/2008 719.47 Pain In Joint Involving Ankle And Foot 06/11/2008 CHRISS MENDEZ MD 719.47 Pain In Joint Involving Ankle And Foot 06/11/2008 ELVIA RUIZ DO 719.47 Pain In Joint Involving Ankle And Foot 06/11/2008 JON GRUBER APRNNDA S 719.47 Pain In Joint Involving Ankle And Foot 06/11/2008 JON GRUBER APRNNDA S 719.47 Pain In Joint Involving Ankle And Foot 06/11/2008 JON GRUBER APRNNDA S 719.47 Pain In Joint Involving Ankle And Foot 06/11/2008 BENTLEY SARABIA APRN 719.47 Pain In Joint Involving Ankle And Foot 06/11/2008 JON GRUBER APRNNDA S 719.47 Pain In Joint Involving Ankle And Foot 06/11/2008 JON GRUBER APRNNDA S 719.47 Pain In Joint Involving Ankle And Foot 06/11/2008 ALLYN PRATT EDUARDO S 719.47 Pain In Joint Involving Ankle And Foot 06/11/2008 ALLYN PRATT EDUARDO S 719.47 Pain In Joint Involving Ankle And Foot 06/11/2008 ALLYN PRATT EDUARDO S 719.47 Pain In Joint Involving Ankle And Foot 06/22/2008 110.1 Onychomycosis 06/22/2008 703.8 Other Specified Diseases Of Nail 06/22/2008 110.1 Onychomycosis 06/22/2008 703.8 Other Specified Diseases Of Nail 06/22/2008 CHRISS MENDEZ MD 110.1 Onychomycosis 06/22/2008 CHRISS MENDEZ MD 703.8 Other Specified Diseases Of Nail 06/22/2008 RUIZ DO, ELVIA K 110.1 Onychomycosis 06/22/2008 SARA DO, ELVIA K 703.8 Other Specified Diseases Of Nail 06/22/2008 ALLYN CUSTOMER SERVICE ENGINEER, EDUARDO S 110.1 Onychomycosis 06/22/2008 ALLYN CUSTOMER SERVICE ENGINEER, EDUARDO S 703.8 Other Specified Diseases Of Nail 06/22/2008 ALLYN CUSTOMER SERVICE ENGINEER, EDUARDO S 110.1 Onychomycosis 06/22/2008 ALLYN CUSTOMER SERVICE ENGINEER, EDUARDO S 703.8 Other Specified Diseases Of Nail 06/22/2008 ALLYN CUSTOMER SERVICE ENGINEER, EDUARDO S 110.1 Onychomycosis 06/22/2008 ALLYN CUSTOMER SERVICE ENGINEER, EDUADRO S 703.8 Other Specified Diseases Of Nail 06/22/2008 NO CUSTOMER SERVICE ENGINEER, BENTLEY A 110.1 Onychomycosis 06/22/2008 NO CUSTOMER SERVICE ENGINEER, BENTLEY A 703.8 Other Specified Diseases Of Nail 06/22/2008 ALLYN CUSTOMER SERVICE ENGINEER, EDUARDO S 110.1 Onychomycosis 06/22/2008 ALLYN CUSTOMER SERVICE ENGINEER, EDUARDO S 703.8 Other Specified Diseases Of Nail 06/22/2008 ALLYN CUSTOMER SERVICE ENGINEER, EDUARDO S 110.1 Onychomycosis 06/22/2008 ALLYN CUSTOMER SERVICE ENGINEER, EDUARDO S 703.8 Other Specified Diseases Of Nail 06/22/2008 ALLYN CUSTOMER SERVICE ENGINEER, EDUARDO S 110.1 Onychomycosis 06/22/2008 ALLYN CUSTOMER SERVICE ENGINEER, EDUARDO S 703.8 Other Specified Diseases Of Nail 06/22/2008 ALLYN CUSTOMER SERVICE ENGINEER, EDUARDO S 110.1 Onychomycosis 06/22/2008 ALLYN CUSTOMER SERVICE ENGINEER, EDUARDO S 703.8 Other Specified Diseases Of Nail 06/22/2008 ALLYN CUSTOMER SERVICE ENGINEER, EDUARDO S 110.1 Onychomycosis 06/22/2008 ALLYN CUSTOMER SERVICE ENGINEER, EDUARDO S 703.8 Other Specified Diseases Of Nail 09/28/2008 110.4 Tinea Pedis 09/28/2008 703.0 Nail Ingrown 09/28/2008 110.4 Tinea Pedis 09/28/2008 703.0 Nail Ingrown 09/28/2008 CHRISS MENDEZ MD 110.4 Tinea Pedis 09/28/2008 CHRISS MENDEZ MD 703.0 Nail Ingrown 09/28/2008 RUIZ DO, ELVIA K 110.4 Tinea Pedis 09/28/2008 RUIZ DO, ELVIA K 703.0 Nail Ingrown 09/28/2008 ALLYN CUSTOMER SERVICE ENGINEER, EDUARDO S 110.4 Tinea Pedis 09/28/2008 ALLYN CUSTOMER SERVICE ENGINEER, EDUARDO S 703.0 Nail Ingrown 09/28/2008 ALLYN CUSTOMER SERVICE ENGINEER, EDUARDO S 110.4 Tinea Pedis 09/28/2008 ALLYN CUSTOMER SERVICE ENGINEER, EDUARDO S 703.0 Nail Ingrown 09/28/2008 ALLYN CUSTOMER SERVICE ENGINEER, EDUARDO S 110.4 Tinea Pedis 09/28/2008 ALLYN CUSTOMER SERVICE ENGINEER, EDUARDO S 703.0 Nail Ingrown 09/28/2008 NO CUSTOMER SERVICE ENGINEER, BENTLEY A 110.4 Tinea Pedis 09/28/2008 NO CUSTOMER SERVICE ENGINEER, BENTLEY A 703.0 Nail Ingrown 09/28/2008 ALLYN CUSTOMER SERVICE ENGINEER, EDUARDO S 110.4 Tinea Pedis 09/28/2008 ALLYN CUSTOMER SERVICE ENGINEER, EDUARDO S 703.0 Nail Ingrown 09/28/2008 ALLYN CUSTOMER SERVICE ENGINEER, EDUARDO S 110.4 Tinea Pedis 09/28/2008 ALLYN CUSTOMER SERVICE ENGINEER, EDUARDO S 703.0 Nail Ingrown 09/28/2008 ALLYN CUSTOMER SERVICE ENGINEER, EDUARDO S 110.4 Tinea Pedis 09/28/2008 ALLYN CUSTOMER SERVICE ENGINEER, EDUARDO S 703.0 Nail Ingrown 09/28/2008 ALLYN CUSTOMER SERVICE ENGINEER, EDUARDO S 110.4 Tinea Pedis 09/28/2008 ALLYN CUSTOMER SERVICE ENGINEER, EDUARDO S 703.0 Nail Ingrown 09/28/2008 ALLYN CUSTOMER SERVICE ENGINEER, EDUARDO S 110.4 Tinea Pedis 09/28/2008 ALLYN CUSTOMER SERVICE ENGINEER, EDUARDO S 703.0 Nail Ingrown 10/15/2008 465.9 Acute Upper Respiratory Infections Of Unspecified Site 10/15/2008 465.9 Acute Upper Respiratory Infections Of Unspecified Site 10/15/2008 CHRISS MENDEZ MD 465.9 Acute Upper Respiratory Infections Of Unspecified Site 10/15/2008 RUIZ DO, ELVIA K 465.9 Acute Upper Respiratory Infections Of Unspecified Site 10/15/2008 ALLYN CUSTOMER SERVICE ENGINEER, EDUARDO S 465.9 Acute Upper Respiratory Infections Of Unspecified Site 10/15/2008 ALLYN CUSTOMER SERVICE ENGINEER, EDUARDO S 465.9 Acute Upper Respiratory Infections Of Unspecified Site 10/15/2008 ALLYN CUSTOMER SERVICE ENGINEER, EDUARDO S 465.9 Acute Upper Respiratory Infections Of Unspecified Site 10/15/2008 NO CUSTOMER SERVICE ENGINEER, BENTLEY A 465.9 Acute Upper Respiratory Infections Of Unspecified Site 10/15/2008 ALLYN CUSTOMER SERVICE ENGINEER, EDUARDO S 465.9 Acute Upper Respiratory Infections Of Unspecified Site 10/15/2008 ALLYN CUSTOMER SERVICE ENGINEER, EDUARDO S 465.9 Acute Upper Respiratory Infections Of Unspecified Site 10/15/2008 ALLYN CUSTOMER SERVICE ENGINEER, EDUARDO S 465.9 Acute Upper Respiratory Infections Of Unspecified Site 10/15/2008 ALLYN CUSTOMER SERVICE ENGINEER, EDUARDO S 465.9 Acute Upper Respiratory Infections Of Unspecified Site 10/15/2008 ALLYN CUSTOMER SERVICE ENGINEER, EDUARDO S 465.9 Acute Upper Respiratory Infections Of Unspecified Site 05/28/2009 511.0 Pleurisy, Without Mention Of Effusion Or Current Tuberculosis 05/28/2009 511.0 Pleurisy, Without Mention Of Effusion Or Current Tuberculosis 05/28/2009 CHRISS MENDEZ MD 511.0 Pleurisy, Without Mention Of Effusion Or Current Tuberculosis 05/28/2009 RUIZ DO, ELVIA K 511.0 Pleurisy, Without Mention Of Effusion Or Current Tuberculosis 05/28/2009 ALLYN CUSTOMER SERVICE ENGINEER, EDUARDO S 511.0 Pleurisy, Without Mention Of Effusion Or Current Tuberculosis 05/28/2009 ALLYN CUSTOMER SERVICE ENGINEER, EDUARDO S 511.0 Pleurisy, Without Mention Of Effusion Or Current Tuberculosis 05/28/2009 ALLYN CUSTOMER SERVICE ENGINEER, EDUARDO S 511.0 Pleurisy, Without Mention Of Effusion Or Current Tuberculosis 05/28/2009 NO CUSTOMER SERVICE ENGINEER, BENTLEY A 511.0 Pleurisy, Without Mention Of Effusion Or Current Tuberculosis 05/28/2009 ALLYN CUSTOMER SERVICE ENGINEER, EDUARDO S 511.0 Pleurisy, Without Mention Of Effusion Or Current Tuberculosis 05/28/2009 ALLYN CUSTOMER SERVICE ENGINEER, EDUARDO S 511.0 Pleurisy, Without Mention Of Effusion Or Current Tuberculosis 05/28/2009 ALLYN CUSTOMER SERVICE ENGINEER, EDUARDO S 511.0 Pleurisy, Without Mention Of Effusion Or Current Tuberculosis 05/28/2009 ALLYN CUSTOMER SERVICE ENGINEER, EDUARDO S 511.0 Pleurisy, Without Mention Of Effusion Or Current Tuberculosis 05/28/2009 ALLYN CUSTOMER SERVICE ENGINEER, EDUARDO S 511.0 Pleurisy, Without Mention Of Effusion Or Current Tuberculosis 07/24/2009 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 CHRISS MENDEZ MD 733.6 Tietze's Disease 07/24/2009 ELVIA RUIZ DO 733.6 Tietze's Disease 07/24/2009 ALLYN CUSTOMER SERVICE ENGINEER, EDUARDO S 733.6 Tietze's Disease 07/24/2009 ALLYN CUSTOMER SERVICE ENGINEER, EDUARDO S 733.6 Tietze's Disease 07/24/2009 ALLYN CUSTOMER SERVICE ENGINEER, EDUARDO S 733.6 Tietze's Disease 07/24/2009 NO CUSTOMER SERVICE ENGINEER, BENTLEY A 733.6 Tietze's Disease 07/24/2009 ALLYN CUSTOMER SERVICE ENGINEER, EDUARDO S 733.6 Tietze's Disease 07/24/2009 ALLYN CUSTOMER SERVICE ENGINEER, EDUARDO S 733.6 Tietze's Disease 07/24/2009 ALLYN CUSTOMER SERVICE ENGINEER, EDUARDO S 733.6 Tietze's Disease 07/24/2009 ALYLN CUSTOMER SERVICE ENGINEER, EDUARDO S 733.6 Tietze's Disease 07/24/2009 ALLYN CUSTOMER SERVICE ENGINEER, EDUARDO S 733.6 Tietze's Disease 07/31/2009 053.9 Herpes Zoster, Without Mention Of Complication 07/31/2009 053.9 Herpes Zoster, Without Mention Of Complication 07/31/2009 CHRISS MENDEZ MD 053.9 Herpes Zoster, Without Mention Of Complication 07/31/2009 ELVIA RUIZ DO 053.9 Herpes Zoster, Without Mention Of Complication 07/31/2009 ALLYN CUSTOMER SERVICE ENGINEER, EDUARDO S 053.9 Herpes Zoster, Without Mention Of Complication 07/31/2009 ALLYN CUSTOMER SERVICE ENGINEER, EDUARDO S 053.9 Herpes Zoster, Without Mention Of Complication 07/31/2009 ALLYN CUSTOMER SERVICE ENGINEER, EDUARDO S 053.9 Herpes Zoster, Without Mention Of Complication 07/31/2009 NO CUSTOMER SERVICE ENGINEER, BENTLEY A 053.9 Herpes Zoster, Without Mention Of Complication 07/31/2009 ALLYN CUSTOMER SERVICE ENGINEER, EDUARDO S 053.9 Herpes Zoster, Without Mention Of Complication 07/31/2009 ALLYN CUSTOMER SERVICE ENGINEER, EDUARDO S 053.9 Herpes Zoster, Without Mention Of Complication 07/31/2009 ALLYN CUSTOMER SERVICE ENGINEER, EDUARDO S 053.9 Herpes Zoster, Without Mention Of Complication 07/31/2009 ALLYN CUSTOMER SERVICE ENGINEER, EDUARDO S 053.9 Herpes Zoster, Without Mention Of Complication 07/31/2009 ALLYN CUSTOMER SERVICE ENGINEER, EDUARDO S 053.9 Herpes Zoster, Without Mention Of Complication 10/29/2009 300.00 Anxiety State, Unspecified 10/29/2009 300.00 Anxiety State, Unspecified 10/29/2009 CHRISS MENDEZ MD 300.00 Anxiety State, Unspecified 10/29/2009 ELVIA RUIZ DO 300.00 Anxiety State, Unspecified 10/29/2009 ALLYN CUSTOMER SERVICE ENGINEER, EDUARDO S 300.00 Anxiety State, Unspecified 10/29/2009 ALLYN CUSTOMER SERVICE ENGINEER, EDUARDO S 300.00 Anxiety State, Unspecified 10/29/2009 ALLYN CUSTOMER SERVICE ENGINEER, EDUARDO S 300.00 Anxiety State, Unspecified 10/29/2009 NO CUSTOMER SERVICE ENGINEER, BENTLEY A 300.00 Anxiety State, Unspecified 10/29/2009 ALLYN CUSTOMER SERVICE ENGINEER, EDUARDO S 300.00 Anxiety State, Unspecified 10/29/2009 ALLYN CUSTOMER SERVICE ENGINEER, EDUARDO S 300.00 Anxiety State, Unspecified 10/29/2009 ALLYN CUSTOMER SERVICE ENGINEER, EDUARDO S 300.00 Anxiety State, Unspecified 10/29/2009 ALLYN CUSTOMER SERVICE ENGINEER, EDUARDO S 300.00 Anxiety State, Unspecified 10/29/2009 ALLYN CUSTOMER SERVICE ENGINEER, EDUARDO S 300.00 Anxiety State, Unspecified 11/13/2009 346.00 Migraine With Aura, Without Mention Of Intractable Migraine Without Mention Of Status Migrainosus 11/13/2009 346.00 Migraine With Aura, Without Mention Of Intractable Migraine Without Mention Of Status Migrainosus 11/13/2009 CHRISS MENDEZ MD 346.00 Migraine With Aura, Without Mention Of Intractable Migraine Without Mention Of Status Migrainosus 11/13/2009 ELVIA RUIZ DO 346.00 Migraine With Aura, Without Mention Of Intractable Migraine Without Mention Of Status Migrainosus 11/13/2009 ALLYN CUSTOMER SERVICE ENGINEER, EDUARDO S 346.00 Migraine With Aura, Without Mention Of Intractable Migraine Without Mention Of Status Migrainosus 11/13/2009 ALLYN CUSTOMER SERVICE ENGINEER, EDUARDO S 346.00 Migraine With Aura, Without Mention Of Intractable Migraine Without Mention Of Status Migrainosus 11/13/2009 ALLYN CUSTOMER SERVICE ENGINEER, EDUARDO S 346.00 Migraine With Aura, Without Mention Of Intractable Migraine Without Mention Of Status Migrainosus 11/13/2009 NO CUSTOMER SERVICE ENGINEER, BENTLEY A 346.00 Migraine With Aura, Without Mention Of Intractable Migraine Without Mention Of Status Migrainosus 11/13/2009 ALLYN CUSTOMER SERVICE ENGINEER, EDUARDO S 346.00 Migraine With Aura, Without Mention Of Intractable Migraine Without Mention Of Status Migrainosus 11/13/2009 ALLYN CUSTOMER SERVICE ENGINEER, EDUARDO S 346.00 Migraine With Aura, Without Mention Of Intractable Migraine Without Mention Of Status Migrainosus 11/13/2009 ALLYN CUSTOMER SERVICE ENGINEER, EDUARDO S 346.00 Migraine With Aura, Without Mention Of Intractable Migraine Without Mention Of Status Migrainosus 11/13/2009 ALLYN CUSTOMER SERVICE ENGINEER, EDUARDO S 346.00 Migraine With Aura, Without Mention Of Intractable Migraine Without Mention Of Status Migrainosus 11/13/2009 ALLYN CUSTOMER SERVICE ENGINEER, EDUARDO S 346.00 Migraine With Aura, Without Mention Of Intractable Migraine Without Mention Of Status Migrainosus 02/04/2010 682.7 Cellulitis And Abscess Of Foot Except Toes 02/04/2010 682.7 Cellulitis And Abscess Of Foot Except Toes 02/04/2010 CHRISS MENDEZ MD 682.7 Cellulitis And Abscess Of Foot Except Toes 02/04/2010 ELVIA RUIZ DO 682.7 Cellulitis And Abscess Of Foot Except Toes 02/04/2010 ALLYN CUSTOMER SERVICE ENGINEER, EDUARDO S 682.7 Cellulitis And Abscess Of Foot Except Toes 02/04/2010 ALLYN CUSTOMER SERVICE ENGINEER, EDUARDO S 682.7 Cellulitis And Abscess Of Foot Except Toes 02/04/2010 ALLYN CUSTOMER SERVICE ENGINEER, EDUARDO S 682.7 Cellulitis And Abscess Of Foot Except Toes 02/04/2010 NO CUSTOMER SERVICE ENGINEER, BENTLEY A 682.7 Cellulitis And Abscess Of Foot Except Toes 02/04/2010 ALLYN CUSTOMER SERVICE ENGINEER, EDUARDO S 682.7 Cellulitis And Abscess Of Foot Except Toes 02/04/2010 ALLYN CUSTOMER SERVICE ENGINEER, EDUARDO S 682.7 Cellulitis And Abscess Of Foot Except Toes 02/04/2010 ALLYN CUSTOMER SERVICE ENGINEER, EDUARDO S 682.7 Cellulitis And Abscess Of Foot Except Toes 02/04/2010 ALLYN CUSTOMER SERVICE ENGINEER, EDUARDO S 682.7 Cellulitis And Abscess Of Foot Except Toes 02/04/2010 ALLYN CUSTOMER SERVICE ENGINEER, EDUARDO S 682.7 Cellulitis And Abscess Of Foot Except Toes 07/02/2010 Ot 300.00 07/02/2010 Ot 305.00 09/19/2010 Ot 305.00 ALCOHOL ABUSE-UNSPEC 09/19/2010 Ot 780.39 OTHER CONVULSIONS 2010 Ot 780.39 OTHER CONVULSIONS 12/16/2010 724.5 Back Pain, General 12/16/2010 V17.49 FAM HX ASCVD (DISEASE) 12/16/2010 724.5 Back Pain, General 12/16/2010 V17.49 FAM HX ASCVD (DISEASE) 12/16/2010 CHRISS MENDEZ MD 724.5 Back Pain, General 12/16/2010 CHRISS MENDEZ MD V17.49 FAM HX ASCVD (DISEASE) 12/16/2010 RUIZ DOELVIA K 724.5 Back Pain, General 12/16/2010 RUIZ DOELVIA K V17.49 FAM HX ASCVD (DISEASE) 12/16/2010 ALLYN CUSTOMER SERVICE ENGINEER, EDUARDO S 724.5 Back Pain, General 12/16/2010 ALLYN CUSTOMER SERVICE ENGINEERJONEDUARDO S V17.49 FAM HX ASCVD (DISEASE) 12/16/2010 ALLYN CUSTOMER SERVICE ENGINEER, EDUARDO S 724.5 Back Pain, General 12/16/2010 ALLYN CUSTOMER SERVICE ENGINEER, EDUARDO S V17.49 FAM HX ASCVD (DISEASE) 12/16/2010 ALLYN CUSTOMER SERVICE ENGINEER, EDUARDO S 724.5 Back Pain, General 12/16/2010 ALLYN CUSTOMER SERVICE ENGINEER, EDUARDO S V17.49 FAM HX ASCVD (DISEASE) 12/16/2010 NO CUSTOMER SERVICE ENGINEER, BENTLEY A 724.5 Back Pain, General 12/16/2010 NO CUSTOMER SERVICE ENGINEER, BENTLEY A V17.49 FAM HX ASCVD (DISEASE) 12/16/2010 ALLYN CUSTOMER SERVICE ENGINEER, EDUARDO S 724.5 Back Pain, General 12/16/2010 ALLYN CUSTOMER SERVICE ENGINEER, EDUARDO S V17.49 FAM HX ASCVD (DISEASE) 12/16/2010 ALLYN CUSTOMER SERVICE ENGINEER, EDUARDO S 724.5 Back Pain, General 12/16/2010 ALLYN CUSTOMER SERVICE ENGINEER, EDUARDO S V17.49 FAM HX ASCVD (DISEASE) 12/16/2010 ALLYN CUSTOMER SERVICE ENGINEER, EDUARDO S 724.5 Back Pain, General 12/16/2010 ALLYN CUSTOMER SERVICE ENGINEER, EDUARDO S V17.49 FAM HX ASCVD (DISEASE) 12/16/2010 ALLYN CUSTOMER SERVICE ENGINEER, EDUARDO S 724.5 Back Pain, General 12/16/2010 ALLYN CUSTOMER SERVICE ENGINEER, EDUARDO S V17.49 FAM HX ASCVD (DISEASE) 12/16/2010 ALLYN CUSTOMER SERVICE ENGINEER, EDUARDO S 724.5 Back Pain, General 12/16/2010 ALLYN CUSTOMER SERVICE ENGINEER, EDUARDO S V17.49 FAM HX ASCVD (DISEASE) 01/13/2011 381.81 DYSFUNCTION OF EUSTACHIAN TUBE 01/13/2011 381.81 DYSFUNCTION OF EUSTACHIAN TUBE 01/13/2011 CHRISS MENDEZ MD 381.81 DYSFUNCTION OF EUSTACHIAN TUBE 01/13/2011 ELVIA RUIZ DO 381.81 DYSFUNCTION OF EUSTACHIAN TUBE 01/13/2011 ALLYN CUSTOMER SERVICE ENGINEER, EDUARDO S 381.81 DYSFUNCTION OF EUSTACHIAN TUBE 01/13/2011 ALLYN CUSTOMER SERVICE ENGINEER EDUARDO S 381.81 DYSFUNCTION OF EUSTACHIAN TUBE 01/13/2011 ALLYN CUSTOMER SERVICE ENGINEER, EDUARDO S 381.81 DYSFUNCTION OF EUSTACHIAN TUBE 01/13/2011 BENTLEY SARABIA APRN A 381.81 DYSFUNCTION OF EUSTACHIAN TUBE 01/13/2011 ALLYN CUSTOMER SERVICE ENGINEER, EDUARDO S 381.81 DYSFUNCTION OF EUSTACHIAN TUBE 01/13/2011 ALLYN CUSTOMER SERVICE ENGINEER, EDUARDO S 381.81 DYSFUNCTION OF EUSTACHIAN TUBE 01/13/2011 ALLYN CUSTOMER SERVICE ENGINEER, EDUARDO S 381.81 DYSFUNCTION OF EUSTACHIAN TUBE 01/13/2011 ALLYN CUSTOMER SERVICE ENGINEER, EDUARDO S 381.81 DYSFUNCTION OF EUSTACHIAN TUBE 01/13/2011 ALLYN CUSTOMER SERVICE ENGINEER, EDUARDO S 381.81 DYSFUNCTION OF EUSTACHIAN TUBE 02/18/2011 V04.81 FLU DX (3 YRS AND ABOVE, IM) 02/18/2011 V04.81 FLU DX (3 YRS AND ABOVE, IM) 02/18/2011 CHRISS MENDEZ MD V04.81 FLU DX (3 YRS AND ABOVE, IM) 02/18/2011 ELVIA RUIZ DO V04.81 FLU DX (3 YRS AND ABOVE, IM) 02/18/2011 JON GRUBER APRNNDA S V04.81 FLU DX (3 YRS AND ABOVE, IM) 02/18/2011 JON GRUBER APRNNDA S V04.81 FLU DX (3 YRS AND ABOVE, IM) 02/18/2011 JON GRUBER APRNNDA S V04.81 FLU DX (3 YRS AND ABOVE, IM) 02/18/2011 BENTLEY SARABIA APRN A V04.81 FLU DX (3 YRS AND ABOVE, IM) 02/18/2011 ALLYN PRATT EDUARDO S V04.81 FLU DX (3 YRS AND ABOVE, IM) 02/18/2011 JON GRUBER APRNNDA S V04.81 FLU DX (3 YRS AND ABOVE, IM) 02/18/2011 ALLYN AMAYAN, EDUARDO S V04.81 FLU DX (3 YRS AND ABOVE, IM) 02/18/2011 JON GRUBER APRNNDA S V04.81 FLU DX (3 YRS AND ABOVE, IM) 02/18/2011 ALLYN CUSTOMER SERVICE ENGINEER, EDUARDO S V04.81 FLU DX (3 YRS AND ABOVE, IM) 02/25/2011 702.8 OTHER SPECIFIED DERMATOSES 02/25/2011 702.8 OTHER SPECIFIED DERMATOSES 02/25/2011 CHRISS MENDEZ MD 702.8 OTHER SPECIFIED DERMATOSES 02/25/2011 ELVIA RUIZ DO K 702.8 OTHER SPECIFIED DERMATOSES 02/25/2011 ALLYN CUSTOMER SERVICE ENGINEER, EDUARDO S 702.8 OTHER SPECIFIED DERMATOSES 02/25/2011 ALLYN CUSTOMER SERVICE ENGINEER, EDUARDO S 702.8 OTHER SPECIFIED DERMATOSES 02/25/2011 ALLYN CUSTOMER SERVICE ENGINEER, EDUARDO S 702.8 OTHER SPECIFIED DERMATOSES 02/25/2011 CARMEN SARABIA APRNIDI A 702.8 OTHER SPECIFIED DERMATOSES 02/25/2011 ALLYN CUSTOMER SERVICE ENGINEER, EDUARDO S 702.8 OTHER SPECIFIED DERMATOSES 02/25/2011 ALLYN CUSTOMER SERVICE ENGINEER, EDUARDO S 702.8 OTHER SPECIFIED DERMATOSES 02/25/2011 ALLYN CUSTOMER SERVICE ENGINEER, EDUARDO S 702.8 OTHER SPECIFIED DERMATOSES 02/25/2011 ALLYN CUSTOMER SERVICE ENGINEER, EDUARDO S 702.8 OTHER SPECIFIED DERMATOSES 02/25/2011 ALLYN CUSTOMER SERVICE ENGINEER, EDUARDO S 702.8 OTHER SPECIFIED DERMATOSES 03/03/2011 401.1 HYPERTENSION, BENIGN ESSENTIAL 03/03/2011 401.1 HYPERTENSION, BENIGN ESSENTIAL 03/03/2011 CHRISS MENDEZ MD 401.1 HYPERTENSION, BENIGN ESSENTIAL 03/03/2011 ELVIA RUIZ DO K 401.1 HYPERTENSION, BENIGN ESSENTIAL 03/03/2011 ALLYN CUSTOMER SERVICE ENGINEER, EDUARDO S 401.1 HYPERTENSION, BENIGN ESSENTIAL 03/03/2011 ALLYN CUSTOMER SERVICE ENGINEER, EDUARDO S 401.1 HYPERTENSION, BENIGN ESSENTIAL 03/03/2011 ALLYN CUSTOMER SERVICE ENGINEER, EDUARDO S 401.1 HYPERTENSION, BENIGN ESSENTIAL 03/03/2011 BENTLEY SARABIA APRN A 401.1 HYPERTENSION, BENIGN ESSENTIAL 03/03/2011 ALLYN CUSTOMER SERVICE ENGINEER, EDUARDO S 401.1 HYPERTENSION, BENIGN ESSENTIAL 03/03/2011 ALLYN CUSTOMER SERVICE ENGINEER, EDUARDO S 401.1 HYPERTENSION, BENIGN ESSENTIAL 03/03/2011 ALLYN CUSTOMER SERVICE ENGINEER, EDUARDO S 401.1 HYPERTENSION, BENIGN ESSENTIAL 03/03/2011 ALLYN CUSTOMER SERVICE ENGINEER, EDUARDO S 401.1 HYPERTENSION, BENIGN ESSENTIAL 03/03/2011 ALLYN CUSTOMER SERVICE ENGINEER, EDUARDO S 401.1 HYPERTENSION, BENIGN ESSENTIAL 04/07/2011 465.9 UPPER RESPIRATORY INFECTION 04/07/2011 V03.82 Need For Vaccination Pneumococcal 04/07/2011 465.9 UPPER RESPIRATORY INFECTION 04/07/2011 V03.82 Need For Vaccination Pneumococcal 04/07/2011 CHRISS MENDEZ MD 465.9 UPPER RESPIRATORY INFECTION 04/07/2011 CHRISS MENDEZ MD V03.82 Need For Vaccination Pneumococcal 04/07/2011 RUIZ DO, ELVIA K 465.9 UPPER RESPIRATORY INFECTION 04/07/2011 RUIZ DO, ELVIA K V03.82 Need For Vaccination Pneumococcal 04/07/2011 ALLYN CUSTOMER SERVICE ENGINEER, EDUARDO S 465.9 UPPER RESPIRATORY INFECTION 04/07/2011 ALLYN AMAYAN, EDUARDO S V03.82 Need For Vaccination Pneumococcal 04/07/2011 ALLYN AMAYAN, EDUARDO S 465.9 UPPER RESPIRATORY INFECTION 04/07/2011 ALLYN AMAYAN, EDUARDO S V03.82 Need For Vaccination Pneumococcal 04/07/2011 ALLYN CUSTOMER SERVICE ENGINEER, EDUARDO S 465.9 UPPER RESPIRATORY INFECTION 04/07/2011 ALLYN CUSTOMER SERVICE ENGINEER, EDUARDO S V03.82 NEED FOR VACCINATION PNEUMOCOCCAL 04/07/2011 NO CUSTOMER SERVICE ENGINEER, BENTLEY A 465.9 UPPER RESPIRATORY INFECTION 04/07/2011 NO CUSTOMER SERVICE ENGINEER, BENTLEY A V03.82 NEED FOR VACCINATION PNEUMOCOCCAL 04/07/2011 ALLYN CUSTOMER SERVICE ENGINEER, EDUARDO S 465.9 UPPER RESPIRATORY INFECTION 04/07/2011 ALLYN CUSTOMER SERVICE ENGINEER, EDUARDO S V03.82 NEED FOR VACCINATION PNEUMOCOCCAL 04/07/2011 ALLYN CUSTOMER SERVICE ENGINEER, EDUARDO S 465.9 UPPER RESPIRATORY INFECTION 04/07/2011 ALLYN CUSTOMER SERVICE ENGINEER, EDUARDO S V03.82 NEED FOR VACCINATION PNEUMOCOCCAL 04/07/2011 ALLYN CUSTOMER SERVICE ENGINEER, EDUARDO S 465.9 UPPER RESPIRATORY INFECTION 04/07/2011 ALLYN CUSTOMER SERVICE ENGINEER, EDUARDO S V03.82 NEED FOR VACCINATION PNEUMOCOCCAL 04/07/2011 ALLYN CUSTOMER SERVICE ENGINEER, EDUARDO S 465.9 UPPER RESPIRATORY INFECTION 04/07/2011 JON GRUBER APRNNDA S V03.82 NEED FOR VACCINATION PNEUMOCOCCAL 04/07/2011 JON GRUBER APRNNDA S 465.9 UPPER RESPIRATORY INFECTION 04/07/2011 JON GRUBER APRNNDA S V03.82 NEED FOR VACCINATION PNEUMOCOCCAL 07/06/2011 386.11 BENIGN PAROXYSMAL POSITIONAL VERTIGO 07/06/2011 709.8 OTHER SPECIFIED DISORDERS OF SKIN 07/06/2011 386.11 BENIGN PAROXYSMAL POSITIONAL VERTIGO 07/06/2011 709.8 OTHER SPECIFIED DISORDERS OF SKIN 07/06/2011 CHRISS MENDEZ MD 386.11 BENIGN PAROXYSMAL POSITIONAL VERTIGO 07/06/2011 CHRISS MENDEZ MD 709.8 OTHER SPECIFIED DISORDERS OF SKIN 07/06/2011 RUIZ DOELVIA K 386.11 BENIGN PAROXYSMAL POSITIONAL VERTIGO 07/06/2011 RUIZ ELVIA ABRAHAM K 709.8 OTHER SPECIFIED DISORDERS OF SKIN 07/06/2011 ALLYN PRATT EDUARDO S 386.11 BENIGN PAROXYSMAL POSITIONAL VERTIGO 07/06/2011 JON GRUBER APRNNDA S 709.8 OTHER SPECIFIED DISORDERS OF SKIN 07/06/2011 ALLYN PRATT EDUARDO S 386.11 BENIGN PAROXYSMAL POSITIONAL VERTIGO 07/06/2011 JON GRUBER APRNNDA S 709.8 OTHER SPECIFIED DISORDERS OF SKIN 07/06/2011 ALLYN PRATT EDUARDO S 386.11 BENIGN PAROXYSMAL POSITIONAL VERTIGO 07/06/2011 ALLYN PRATT EDUARDO S 709.8 OTHER SPECIFIED DISORDERS OF SKIN 07/06/2011 NO CUSTOMER SERVICE ENGINEER, BENTLEY A 386.11 BENIGN PAROXYSMAL POSITIONAL VERTIGO 07/06/2011 NO CUSTOMER SERVICE ENGINEER, BENTLEY A 709.8 OTHER SPECIFIED DISORDERS OF SKIN 07/06/2011 ALLYN PRATT, EDUARDO S 386.11 BENIGN PAROXYSMAL POSITIONAL VERTIGO 07/06/2011 ALLYN PRATT EDUARDO S 709.8 OTHER SPECIFIED DISORDERS OF SKIN 07/06/2011 ALLYN PRATT, EDUARDO S 386.11 BENIGN PAROXYSMAL POSITIONAL VERTIGO 07/06/2011 ALLYN PRTAT EDUARDO S 709.8 OTHER SPECIFIED DISORDERS OF SKIN 07/06/2011 ALLYN PRATT EDUARDO S 386.11 BENIGN PAROXYSMAL POSITIONAL VERTIGO 07/06/2011 ALLYN CUSTOMER SERVICE ENGINEER, EDUARDO S 709.8 OTHER SPECIFIED DISORDERS OF SKIN 07/06/2011 ALLYN CUSTOMER SERVICE ENGINEER, EDUARDO S 386.11 BENIGN PAROXYSMAL POSITIONAL VERTIGO 07/06/2011 ALLYN CUSTOMER SERVICE ENGINEER, EDUARDO S 709.8 OTHER SPECIFIED DISORDERS OF SKIN 07/06/2011 ALLYN CUSTOMER SERVICE ENGINEER, EDUARDO S 386.11 BENIGN PAROXYSMAL POSITIONAL VERTIGO 07/06/2011 ALLYN CUSTOMER SERVICE ENGINEER, EDUARDO S 709.8 OTHER SPECIFIED DISORDERS OF SKIN 08/25/2011 Ot 303.01 AC ALCOHOL INTOX-CONTIN 08/25/2011 Ot 311 DEPRESSIVE DISORDER NEC 12/12/2011 Ot 305.00 ALCOHOL ABUSE-UNSPEC 12/12/2011 Ot 599.0 URIN TRACT INFECTION NOS 12/12/2011 Ot V62.84 SUICIDAL IDEATION 05/09/2012 Ot 599.0 URIN TRACT INFECTION NOS 05/09/2012 Ot 625.8 FEM GENITAL SYMPTOMS NEC 05/09/2012 Ot 789.03 ABDOMINAL PAIN, RIGHT LOWER QUADRANT 06/20/2012 Ot 462 ACUTE PHARYNGITIS 06/20/2012 Ot 466.0 ACUTE BRONCHITIS 06/20/2012 Ot 786.2 COUGH 06/27/2012 786.2 COUGH 06/27/2012 786.2 COUGH 06/27/2012 CHRISS MENDEZ MD 786.2 COUGH 06/27/2012 ELVIA RUIZ DO 786.2 COUGH 06/27/2012 ALLYN CUSTOMER SERVICE ENGINEER, EDUARDO S 786.2 COUGH 06/27/2012 ALLYN CUSTOMER SERVICE ENGINEER, EDUARDO S 786.2 COUGH 06/27/2012 ALLYN CUSTOMER SERVICE ENGINEER, EDUARDO S 786.2 COUGH 06/27/2012 NO AMAYAN, BENTLEY A 786.2 COUGH 06/27/2012 ALLYN CUSTOMER SERVICE ENGINEER, EDUARDO S 786.2 COUGH 06/27/2012 ALLYN CUSTOMER SERVICE ENGINEER, EDUARDO S 786.2 COUGH 06/27/2012 ALLYN CUSTOMER SERVICE ENGINEER, EDUARDO S 786.2 COUGH 06/27/2012 ALLYN CUSTOMER SERVICE ENGINEER, EDUARDO S 786.2 COUGH 06/27/2012 ALLYN CUSTOMER SERVICE ENGINEER, EDUARDO S 786.2 COUGH 11/30/2012 RENETTA NEW MD Ot 564.00 UNSPEC CONSTIPATION 11/30/2012 RENETTA NEW MD Ot 599.0 URIN TRACT INFECTION NOS 11/30/2012 SHAQ SILVA, RENETTA Ot 787.01 NAUSEA WITH VOMITING 11/30/2012 RENETTA NEW MD Ot 789.01 ABDOMINAL PAIN, RIGHT UPPER QUADRANT 05/01/2013 ALLYN CUSTOMER SERVICE ENGINEER, EDUARDO S 053.9 HERPES ZOSTER (SHINGLES) 05/01/2013 ALLYN CUSTOMER SERVICE ENGINEER, EDUARDO S 684 IMPETIGO 05/01/2013 ALLYN CUSTOMER SERVICE ENGINEER, EDUARDO S 053.9 HERPES ZOSTER (SHINGLES) 05/01/2013 ALLYN CUSTOMER SERVICE ENGINEER, EDUARDO S 684 IMPETIGO 05/01/2013 ALLYN CUSTOMER SERVICE ENGINEER, EDUARDO S 053.9 HERPES ZOSTER (SHINGLES) 05/01/2013 ALLYN CUSTOMER SERVICE ENGINEER, EDUARDO S 684 IMPETIGO 05/01/2013 NO CUSTOMER SERVICE ENGINEER, BENTLEY A 053.9 HERPES ZOSTER (SHINGLES) 05/01/2013 NO CUSTOMER SERVICE ENGINEER, BENTLEY A 684 IMPETIGO 05/01/2013 ALLYN CUSTOMER SERVICE ENGINEER, EDUARDO S 053.9 HERPES ZOSTER (SHINGLES) 05/01/2013 ALLYN CUSTOMER SERVICE ENGINEER, EDUARDO S 684 IMPETIGO 05/01/2013 ALLYN CUSTOMER SERVICE ENGINEER, EDUARDO S 053.9 HERPES ZOSTER (SHINGLES) 05/01/2013 ALLYN CUSTOMER SERVICE ENGINEER, EDUARDO S 684 IMPETIGO 05/01/2013 ALLYN CUSTOMER SERVICE ENGINEER, EDUARDO S 053.9 HERPES ZOSTER (SHINGLES) 05/01/2013 ALLYN CUSTOMER SERVICE ENGINEER, EDUARDO S 684 IMPETIGO 05/01/2013 ALLYN CUSTOMER SERVICE ENGINEER, EDUARDO S 053.9 HERPES ZOSTER (SHINGLES) 05/01/2013 ALLYN CUSTOMER SERVICE ENGINEER, EDUARDO S 684 IMPETIGO 05/01/2013 ALLYN CUSTOMER SERVICE ENGINEER, EDURADO S 053.9 HERPES ZOSTER (SHINGLES) 05/01/2013 ALLYN CUSTOMER SERVICE ENGINEER, EDUARDO S 684 IMPETIGO 06/20/2013 ALLYN CUSTOMER SERVICE ENGINEER, EDUARDO S 599.0 URINARY TRACT INFECTION 06/20/2013 ALLYN AMAYAN, EDUARDO S 599.0 URINARY TRACT INFECTION 06/20/2013 BENTLEY SARABIA APRN A 599.0 URINARY TRACT INFECTION 06/20/2013 ALLYN CUSTOMER SERVICE ENGINEER, EDUARDO S 599.0 URINARY TRACT INFECTION 06/20/2013 ALLYN CUSTOMER SERVICE ENGINEER, EDUARDO S 599.0 URINARY TRACT INFECTION 06/20/2013 ALLYN CUSTOMER SERVICE ENGINEER, EDUARDO S 599.0 URINARY TRACT INFECTION 06/20/2013 ALLYN AMAYAN, EDUARDO S 599.0 URINARY TRACT INFECTION 06/20/2013 ALLYN AMAYAN, EDUARDO S 599.0 URINARY TRACT INFECTION 08/14/2013 VLADIMIR MARK DO Ot 729.81 SWELLING OF LIMB 08/14/2013 VLADIMIR MARK DO Ot 915.8 SUPERFIC INJ FINGER-NEC 08/14/2013 VLADIMIR MARK DO Ot E000.8 OTHER EXTERNAL CAUSE STATUS 08/14/2013 VLADIMIR MARK DO Ot E849.0 ACCIDENT IN HOME 08/14/2013 VLADIMIR MARK DO Ot E928.5 EXTERNAL CONSTICTION CAUSED BY OTHER OBJ 10/24/2013 BISI BUCK CUSTOMER SERVICE ENGINEER Ot 682.2 CELLULITIS OF TRUNK 10/26/2013 ALLYN PRATT, EDUARDO S 682.9 CELLULITIS AND ABSCESS OF UNSPECIFIED SITES 10/26/2013 BENTLEY SARABIA APRN A 682.9 CELLULITIS AND ABSCESS OF UNSPECIFIED SITES 10/26/2013 JON GRUBER APRNNDA S 682.9 CELLULITIS AND ABSCESS OF UNSPECIFIED SITES 10/26/2013 ALLYN AMAYAN EDUARDO S 682.9 CELLULITIS AND ABSCESS OF UNSPECIFIED SITES 10/26/2013 ALLYN AMAYAN EDUARDO S 682.9 CELLULITIS AND ABSCESS OF UNSPECIFIED SITES 10/26/2013 ALLYN PRATT EDUARDO S 682.9 CELLULITIS AND ABSCESS OF UNSPECIFIED SITES 10/26/2013 ALLYN PRATT EDUARDO S 682.9 CELLULITIS AND ABSCESS OF UNSPECIFIED SITES 11/14/2013 BENTLEY SARABIA APRN A 611.6 GALACTORRHEA NOT ASSOCIATED WITH CHILDBIRTH 11/14/2013 NO CUSTOMER SERVICE ENGINEER, BENTLEY A 611.79 OTHER SIGNS AND SYMPTOMS IN BREAST 11/14/2013 NO CUSTOMER SERVICE ENGINEER, BENTLEY A 625.0 DYSPAREUNIA 11/14/2013 NO CUSTOMER SERVICE ENGINEER, BENTLEY A 719.43 PAIN- WRIST 11/14/2013 NO CUSTOMER SERVICE ENGINEER, BENTLEY A V16.3 FAM HX CANCER, BREAST 11/14/2013 NO CUSTOMER SERVICE ENGINEER, BENTLEY A V72.31 EXECUTIVE HOUSEKEEPER EXAM, ROUTINE 11/14/2013 NO CUSTOMER SERVICE ENGINEER, BENTLEY A V76.10 BREAST CANCER SCREENING 11/14/2013 NO CUSTOMER SERVICE ENGINEER, BENTLEY A V76.51 COLON CANCER SCREENING 11/14/2013 ALLYN CUSTOMER SERVICE ENGINEER, EDUARDO S 611.6 GALACTORRHEA NOT ASSOCIATED WITH CHILDBIRTH 11/14/2013 ALLYN CUSTOMER SERVICE ENGINEER, EDUARDO S 611.79 OTHER SIGNS AND SYMPTOMS IN BREAST 11/14/2013 ALLYN CUSTOMER SERVICE ENGINEER, EDUARDO S 625.0 DYSPAREUNIA 11/14/2013 ALLYN CUSTOMER SERVICE ENGINEER, EDUARDO S 719.43 PAIN- WRIST 11/14/2013 ALLYN CUSTOMER SERVICE ENGINEER, EDUARDO S V16.3 FAM HX CANCER, BREAST 11/14/2013 ALLYN CUSTOMER SERVICE ENGINEER, EDUARDO S V72.31 EXECUTIVE HOUSEKEEPER EXAM, ROUTINE 11/14/2013 ALLYN CUSTOMER SERVICE ENGINEER, EDUARDO S V76.10 BREAST CANCER SCREENING 11/14/2013 ALLYN CUSTOMER SERVICE ENGINEER, EDUARDO S V76.51 COLON CANCER SCREENING 11/14/2013 ALLYN CUSTOMER SERVICE ENGINEER, EDUARDO S 611.6 GALACTORRHEA NOT ASSOCIATED WITH CHILDBIRTH 11/14/2013 ALLYN CUSTOMER SERVICE ENGINEER, EDUARDO S 611.79 OTHER SIGNS AND SYMPTOMS IN BREAST 11/14/2013 ALLYN CUSTOMER SERVICE ENGINEER, EDUARDO S 625.0 DYSPAREUNIA 11/14/2013 ALLYN CUSTOMER SERVICE ENGINEER, EDUARDO S 719.43 PAIN- WRIST 11/14/2013 ALLYN CUSTOMER SERVICE ENGINEER, EDUARDO S V16.3 FAM HX CANCER, BREAST 11/14/2013 ALLYN CUSTOMER SERVICE ENGINEER, EDUARDO S V72.31 EXECUTIVE HOUSEKEEPER EXAM, ROUTINE 11/14/2013 ALLYN CUSTOMER SERVICE ENGINEER, EDUARDO S V76.10 BREAST CANCER SCREENING 11/14/2013 ALLYN CUSTOMER SERVICE ENGINEER, EDUARDO S V76.51 COLON CANCER SCREENING 11/14/2013 ALLYN CUSTOMER SERVICE ENGINEER, EDUARDO S 611.6 GALACTORRHEA NOT ASSOCIATED WITH CHILDBIRTH 11/14/2013 ALLYN CUSTOMER SERVICE ENGINEER, EDUARDO S 611.79 OTHER SIGNS AND SYMPTOMS IN BREAST 11/14/2013 ALLYN CUSTOMER SERVICE ENGINEER, EDUARDO S 625.0 DYSPAREUNIA 11/14/2013 ALLYN CUSTOMER SERVICE ENGINEER, EDUARDO S 719.43 PAIN- WRIST 11/14/2013 ALLYN CUSTOMER SERVICE ENGINEER, EDUARDO S V16.3 FAM HX CANCER, BREAST 11/14/2013 ALLYN CUSTOMER SERVICE ENGINEER, EDUARDO S V72.31 EXECUTIVE HOUSEKEEPER EXAM, ROUTINE 11/14/2013 ALLYN CUSTOMER SERVICE ENGINEER, EDUARDO S V76.10 BREAST CANCER SCREENING 11/14/2013 ALLYN CUSTOMER SERVICE ENGINEER, EDUARDO S V76.51 COLON CANCER SCREENING 11/14/2013 ALLYN CUSTOMER SERVICE ENGINEER, EDUARDO S 611.6 GALACTORRHEA NOT ASSOCIATED WITH CHILDBIRTH 11/14/2013 ALLYN CUSTOMER SERVICE ENGINEER, EDUARDO S 611.79 OTHER SIGNS AND SYMPTOMS IN BREAST 11/14/2013 ALLYN CUSTOMER SERVICE ENGINEER, EDUARDO S 625.0 DYSPAREUNIA 11/14/2013 ALLYN CUSTOMER SERVICE ENGINEER, EDUARDO S 719.43 PAIN- WRIST 11/14/2013 ALLYN CUSTOMER SERVICE ENGINEER, EDUARDO S V16.3 FAM HX CANCER, BREAST 11/14/2013 ALLYN CUSTOMER SERVICE ENGINEER, EDUARDO S V72.31 EXECUTIVE HOUSEKEEPER EXAM, ROUTINE 11/14/2013 ALLYN CUSTOMER SERVICE ENGINEER, EDUARDO S V76.10 BREAST CANCER SCREENING 11/14/2013 ALLYN CUSTOMER SERVICE ENGINEER, EDUARDO S V76.51 COLON CANCER SCREENING 11/14/2013 ALLYN CUSTOMER SERVICE ENGINEER, EDUARDO S 611.6 GALACTORRHEA NOT ASSOCIATED WITH CHILDBIRTH 11/14/2013 ALLYN CUSTOMER SERVICE ENGINEER, EDUARDO S 611.79 OTHER SIGNS AND SYMPTOMS IN BREAST 11/14/2013 ALLYN CUSTOMER SERVICE ENGINEER, EDUARDO S 625.0 DYSPAREUNIA 11/14/2013 ALLYN CUSTOMER SERVICE ENGINEER, EDUARDO S 719.43 PAIN- WRIST 11/14/2013 ALLYN CUSTOMER SERVICE ENGINEER, EDUARDO S V16.3 FAM HX CANCER, BREAST 11/14/2013 ALLYN CUSTOMER SERVICE ENGINEER, EDUARDO S V72.31 EXECUTIVE HOUSEKEEPER EXAM, ROUTINE 11/14/2013 ALLYN CUSTOMER SERVICE ENGINEER, EDUARDO S V76.10 BREAST CANCER SCREENING 11/14/2013 ALLYN CUSTOMER SERVICE ENGINEER, EDUARDO S V76.51 COLON CANCER SCREENING 02/05/2014 ALLYN CUSTOMER SERVICE ENGINEER, EDUARDO S 477.0 ALLERGIC RHINITIS DUE TO POLLEN 02/05/2014 ALLYN CUSTOMER SERVICE ENGINEER, EDUARDO S 789.00 ABDOMINAL PAIN UNSPECIFIED SITE 02/05/2014 ALLYN CUSTOMER SERVICE ENGINEER, EDUARDO S 477.0 ALLERGIC RHINITIS DUE TO POLLEN 02/05/2014 ALLYN CUSTOMER SERVICE ENGINEER, EDUARDO S 789.00 ABDOMINAL PAIN UNSPECIFIED SITE 02/05/2014 ALLYN CUSTOMER SERVICE ENGINEER, EDUARDO S 477.0 ALLERGIC RHINITIS DUE TO POLLEN 02/05/2014 ALLYN CUSTOMER SERVICE ENGINEER, EDUARDO S 789.00 ABDOMINAL PAIN UNSPECIFIED SITE 02/05/2014 ALLYN CUSTOMER SERVICE ENGINEER, EDUARDO S 477.0 ALLERGIC RHINITIS DUE TO POLLEN 02/05/2014 ALLYN CUSTOMER SERVICE ENGINEER, EDUARDO S 789.00 ABDOMINAL PAIN UNSPECIFIED SITE 03/03/2014 BISI BUCK CUSTOMER SERVICE ENGINEER Ot 599.0 URIN TRACT INFECTION NOS 03/03/2014 BISI BUCK CUSTOMER SERVICE ENGINEER Ot 789.03 ABDOMINAL PAIN, RIGHT LOWER QUADRANT 03/21/2014 BISI BUCK CUSTOMER SERVICE ENGINEER Ot 599.0 URIN TRACT INFECTION NOS 03/21/2014 BISI BUCK CUSTOMER SERVICE ENGINEER Ot 789.03 ABDOMINAL PAIN, RIGHT LOWER QUADRANT 03/21/2014 BENTLEY SARABIA A CUSTOMER SERVICE ENGINEER Ot 611.6 03/21/2014 NO BENTLEY A CUSTOMER SERVICE ENGINEER Ot 611.79 03/21/2014 NO BENTLEY A CUSTOMER SERVICE ENGINEER Ot 625.0 03/21/2014 NO BENTLEY A CUSTOMER SERVICE ENGINEER Ot V16.3 03/21/2014 NO BENTLEY A CUSTOMER SERVICE ENGINEER Ot V72.31 03/21/2014 NO BENTLEY A CUSTOMER SERVICE ENGINEER Ot V76.11 03/21/2014 NO BENTLEY A CUSTOMER SERVICE ENGINEER Ot V76.51 04/10/2014 JON GRUBER APRNNDA S 112.3 CANDIDIASIS OF SKIN AND NAILS 04/10/2014 ALLYN CUSTOMER SERVICE ENGINEER, EDUARDO S V04.81 FLU SHOT 04/10/2014 ALLYN CUSTOMER SERVICE ENGINEER, EDUARDO S 112.3 CANDIDIASIS OF SKIN AND NAILS 04/10/2014 ALLYN CUSTOMER SERVICE ENGINEER, EDUARDO S V04.81 FLU SHOT 04/10/2014 ALLYN CUSTOMER SERVICE ENGINEER, EDUARDO S 112.3 CANDIDIASIS OF SKIN AND NAILS 04/10/2014 ALLYN CUSTOMER SERVICE ENGINEER, EDUARDO S V04.81 FLU SHOT 07/23/2014 ALLYN CUSTOMER SERVICE ENGINEER, EDUARDO S 388.70 OTALGIA 07/23/2014 ALLYN CUSTOMER SERVICE ENGINEER, EDUARDO S 465.9 UPPER RESPIRATORY INFECTION 07/23/2014 ALLYN CUSTOMER SERVICE ENGINEER, EDUARDO S 780.4 DIZZINESS AND VERTIGO 07/23/2014 ALLYN CUSTOMER SERVICE ENGINEER, EDUARDO S 786.2 COUGH 07/23/2014 ALLYN CUSTOMER SERVICE ENGINEER, EDUARDO S 388.70 OTALGIA 07/23/2014 ALLYN CUSTOMER SERVICE ENGINEER, EDUARDO S 465.9 UPPER RESPIRATORY INFECTION 07/23/2014 ALLYN CUSTOMER SERVICE ENGINEER, EDUARDO S 780.4 DIZZINESS AND VERTIGO 07/23/2014 ALLYN CUSTOMER SERVICE ENGINEER, EDUARDO S 786.2 COUGH 08/27/2014 ALLYN PRATT, EDUARDO S 493.90 ASTHMA UNSPECIFIED 08/27/2014 ALLYN CUSTOMER SERVICE ENGINEER, EDUARDO S 599.0 URINARY TRACT INFECTION 08/27/2014 ALLYN PRATT, EDUARDO S 788.1 DYSURIA 10/10/2014 NO, BENTLEY A CUSTOMER SERVICE ENGINEER Ot 611.6 10/10/2014 NO, BENTLEY A CUSTOMER SERVICE ENGINEER Ot 611.79 10/10/2014 NO, BENTLEY A CUSTOMER SERVICE ENGINEER Ot 625.0 10/10/2014 NO, BENTLEY A CUSTOMER SERVICE ENGINEER Ot V16.3 10/10/2014 NO, BENTLEY A CUSTOMER SERVICE ENGINEER Ot V72.31 10/10/2014 NO, BENTLEY A CUSTOMER SERVICE ENGINEER Ot V76.11 10/10/2014 NO, BENTLEY A CUSTOMER SERVICE ENGINEER Ot V76.51 10/10/2014 VLADIMIR MARK DO Ot 133.0 SCABIES 10/10/2014 VLADIMIR MARK DO Ronnie Ot 782.1 NONSPECIF SKIN ERUPT NEC 10/24/2014 NURA GOODSON MD Ot 133.0 SCABIES 11/26/2014 ELIGIO JUAREZ DO Ot 133.0 SCABIES 11/26/2014 ELIGIO JUAREZ DO Ot 782.1 NONSPECIF SKIN ERUPT NEC 02/11/2015 BISI BUCK CUSTOMER SERVICE ENGINEER Ot T18.128A FOOD IN ESOPHAGUS CAUSING OTHER INJURY , 02/11/2015 BISI BUCK CUSTOMER SERVICE ENGINEER Ot X58.XXXA EXPOSURE TO OTHER SPECIFIED FACTORS, INI 02/11/2015 BISI BUCK CUSTOMER SERVICE ENGINEER Ot Y99.8 OTHER EXTERNAL CAUSE STATUS 08/21/2015 SHIVA MEREDITH MD Ot E11.9 TYPE 2 DIABETES MELLITUS WITHOUT COMPLIC 08/21/2015 SHIVA MEREDITH MD Ot I10 ESSENTIAL (PRIMARY) HYPERTENSION 08/21/2015 SHIVA MEREDITH MD Ot J44.9 CHRONIC OBSTRUCTIVE PULMONARY DISEASE, U 08/21/2015 SHIVA MEREDITH MD Ot R11.2 NAUSEA WITH VOMITING, UNSPECIFIED 08/21/2015 SHIVA MEREDITH MD Ot R21 RASH AND OTHER NONSPECIFIC SKIN ERUPTION 08/21/2015 SHIVA MEREDITH MD Ot R42 DIZZINESS AND GIDDINESS 08/21/2015 SHIVA MEREDITH MD Ot T38.0X5A ADVERSE EFFECT OF GLUCOCORT/SYNTH ANALOG 01/06/2016 BENTLEY SARABIA APRN Ot 611.6 GALACTORRHEA-NONOBSTET 01/06/2016 BENTLEY SARABIA APRN Ot 611.79 SYMPTOMS IN BREAST NEC 01/06/2016 BENTLEY SARABIA CUSTOMER SERVICE ENGINEER Ot 625.0 DYSPAREUNIA 01/06/2016 BENTLEY SARABIA CUSTOMER SERVICE ENGINEER Ot V16.3 FAMILY HX-BREAST MALIG 01/06/2016 BENTLEY SARABIA CUSTOMER SERVICE ENGINEER Ot V72.31 ROUTINE GYNECOLOGICAL EXAMINATION 01/06/2016 BENTLEY SARABIA APRN Ot V76.11 SCRN MAMMO-HIGH RISK PT, MALIGNANT NEOPL 01/06/2016 BENTLEY SARABIA APRN Ot V76.51 SCREEN MAL NEOP-COLON 01/07/2016 ELVIA RUIZ DO Ot G40.909 EPILEPSY, UNSP, NOT INTRACTABLE, WITHOUT 01/07/2016 SARA ABRAHAM ELVIA Ronnie Ot G47.30 SLEEP APNEA, UNSPECIFIED 01/07/2016 ELVIA RUIZ DO Ot I10 ESSENTIAL (PRIMARY) HYPERTENSION 01/07/2016 SARA ABRAHAM ELVIA Ronnie Ot J44.9 CHRONIC OBSTRUCTIVE PULMONARY DISEASE, U 01/07/2016 SARA ABRAHAM ELVIA Ronnie Ot N39.0 URINARY TRACT INFECTION, SITE NOT SPECIF 03/31/2016 ANIL SILVA, TONI Link Ot L97.111 NON-PRS CHRONIC ULCER OF RIGHT THIGH RIOS 03/31/2016 ANIL SILVA, TONI Link Ot R22.41 LOCALIZED SWELLING, MASS AND LUMP, RIGHT 04/07/2016 RICK SILVA, ARUN Rand Ot L03.115 CELLULITIS OF RIGHT LOWER LIMB 04/12/2016 RICK SILVA, ARUN Rand Ot L03.115 CELLULITIS OF RIGHT LOWER LIMB 04/30/2016 RICK SILVA, ARUN Rand Ot L03.115 CELLULITIS OF RIGHT LOWER LIMB 06/19/2016 BISI BUCK APRN Ot E11.9 TYPE 2 DIABETES MELLITUS WITHOUT COMPLIC 06/19/2016 BISI BUCK APRN Ot F41.9 ANXIETY DISORDER, UNSPECIFIED 06/19/2016 BISI BUCK APRN Ot I10 ESSENTIAL (PRIMARY) HYPERTENSION 06/19/2016 BISI BUCK APRN Ot J44.9 CHRONIC OBSTRUCTIVE PULMONARY DISEASE, U 06/19/2016 BISI BUCK APRN Ot N39.0 URINARY TRACT INFECTION, SITE NOT SPECIF 06/19/2016 BISI BUCK APRN Ot R10.31 RIGHT LOWER QUADRANT PAIN 06/19/2016 BISI BUCK APRN Ot Z79.899 OTHER CORRECTION (CURRENT) DRUG THERAPY 06/19/2016 BISI BUCK APRN Ot Z90.49 ACQUIRED ABSENCE OF OTHER SPECIFIED PART 06/19/2016 BISI BUCK APRN Ot Z90.710 ACQUIRED ABSENCE OF BOTH CERVIX AND UTER 06/19/2016 BISI BUCK APRN Ot Z90.89 ACQUIRED ABSENCE OF OTHER ORGANS 06/22/2016 BISI BUCK APRN Ot E11.9 TYPE 2 DIABETES MELLITUS WITHOUT COMPLIC 06/22/2016 BISI BUCK APRN Ot F41.9 ANXIETY DISORDER, UNSPECIFIED 06/22/2016 BUCK, PETER J CUSTOMER SERVICE ENGINEER Ot I10 ESSENTIAL (PRIMARY) HYPERTENSION 06/22/2016 BISI BUCK CUSTOMER SERVICE ENGINEER Ot J44.9 CHRONIC OBSTRUCTIVE PULMONARY DISEASE, U 06/22/2016 BISI BUCK CUSTOMER SERVICE ENGINEER Ot N39.0 URINARY TRACT INFECTION, SITE NOT SPECIF 06/22/2016 BISI BUCK CUSTOMER SERVICE ENGINEER Ot R10.31 RIGHT LOWER QUADRANT PAIN 06/22/2016 BISI BUCK CUSTOMER SERVICE ENGINEER Ot Z79.899 OTHER CORRECTION (CURRENT) DRUG THERAPY 06/22/2016 BISI BUCK CUSTOMER SERVICE ENGINEER Ot Z90.49 ACQUIRED ABSENCE OF OTHER SPECIFIED PART 06/22/2016 BISI BUCK CUSTOMER SERVICE ENGINEER Ot Z90.710 ACQUIRED ABSENCE OF BOTH CERVIX AND UTER 06/22/2016 BISI BUCK CUSTOMER SERVICE ENGINEER Ot Z90.89 ACQUIRED ABSENCE OF OTHER ORGANS 06/22/2016 BISI BUCK CUSTOMER SERVICE ENGINEER Ot E11.9 TYPE 2 DIABETES MELLITUS WITHOUT COMPLIC 06/22/2016 BISI BUCK CUSTOMER SERVICE ENGINEER Ot F41.9 ANXIETY DISORDER, UNSPECIFIED 06/22/2016 BISI BUCK CUSTOMER SERVICE ENGINEER Ot I10 ESSENTIAL (PRIMARY) HYPERTENSION 06/22/2016 BISI BUCK APRN Ot J44.9 CHRONIC OBSTRUCTIVE PULMONARY DISEASE, U 06/22/2016 BISI BUCK APRN Ot N39.0 URINARY TRACT INFECTION, SITE NOT SPECIF 06/22/2016 BISI BUCK APRN Ot R10.31 RIGHT LOWER QUADRANT PAIN 06/22/2016 BISI BUCK APRN Ot 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 06/22/2016 BISI BUCK APRN Ot Z90.49 ACQUIRED ABSENCE OF OTHER SPECIFIED PART 06/22/2016 BISI BUCK CUSTOMER SERVICE ENGINEER Ot Z90.710 ACQUIRED ABSENCE OF BOTH CERVIX AND UTER 06/22/2016 BISI BUCK CUSTOMER SERVICE ENGINEER Ot Z90.89 ACQUIRED ABSENCE OF OTHER ORGANS 07/13/2016 RICK SILVA, ARUN Rand Ot K62.5 HEMORRHAGE OF ANUS AND RECTUM 07/14/2016 RICK SILVA, ARUN Rand Ot K62.5 HEMORRHAGE OF ANUS AND RECTUM 07/14/2016 RICK SILVA, ARUN Rand Ot K62.89 OTHER SPECIFIED DISEASES OF ANUS AND REC 07/14/2016 RICK SILVA, ARUN Rand Ot Z01.818 ENCOUNTER FOR OTHER PREPROCEDURAL EXAMIN 07/14/2016 ARUN CABRERA MD, Ot K62.5 HEMORRHAGE OF ANUS AND RECTUM 07/24/2016 ARUN CABRERA MD Ot K62.5 HEMORRHAGE OF ANUS AND RECTUM 07/24/2016 ARUN CABRERA MD, Ot K62.89 OTHER SPECIFIED DISEASES OF ANUS AND REC 07/24/2016 ARUN CABRERA MD Ot Z01.818 ENCOUNTER FOR OTHER PREPROCEDURAL EXAMIN 07/24/2016 ARUN CABRERA MD, Ot K62.5 HEMORRHAGE OF ANUS AND RECTUM 07/24/2016 ARUN CABRERA MD, Ot K62.89 OTHER SPECIFIED DISEASES OF ANUS AND REC 07/24/2016 ARUN CABRERA MD, Ot Z01.818 ENCOUNTER FOR OTHER PREPROCEDURAL EXAMIN 07/27/2016 ARUN CABRERA MD, Ot K57.90 DVRTCLOS OF INTEST, PART UNSP, W/O PERF 07/27/2016 ARUN CABRERA MD, Ot K64.8 OTHER HEMORRHOIDS Procedures Code Description [place] [address] MEASURE BLOOD OXYGEN LEVEL 06/28/2012 07005 ROUTINE VENIPUNCTURE 04/24/2013 96596 CBC 04/24/2013 [id number] GFR CALC (RESULT ONLY) 04/24/2013 29619 CMP 04/24/2013 98823 LIPID PANEL 04/24 71604 CULTURE URINE 54739 UA LONG DIP 06/20 21805 XRAY HAND RIGHT MIN 3 VIEWS 11/14/2013 78285 MAMMOGRAM DX, STEFFANIE 11/14/2013 39834 ROUTINE VENIPUNCTURE 02/05/2014 68056 CBC 02/05/2014 07548 CMP 02/05/2014 63130 LIPID PANEL 02/05 [id number] GFR CALC (RESULT ONLY) 02/05/2014 97007 UA LONG DIP 08/27 Results Test Result Range Complete blood count (CBC) with automated white blood cell (WBC) differential - 01/06/16 15:32 Blood leukocytes automated count (number/volume) 9.6 10*3/ uL 4.3-11.0 Blood erythrocytes automated count (number/volume) 3.67 10*6 /uL 4.35-5.85 Venous blood hemoglobin measurement (mass/volume) 11.5 g/dL 11.5-16.0 Blood hematocrit (volume fraction) 33 % 35-52 Automated erythrocyte mean corpuscular volume 90 [foz_us] 80-99 Automated erythrocyte mean corpuscular hemoglobin (mass per erythrocyte) 31 pg 25-34 Automated erythrocyte mean corpuscular hemoglobin concentration measurement ( mass/volume) 35 g/dL 32-36 Automated erythrocyte distribution width ratio 12.9 % 10.0-14.5 Automated blood platelet count (count/volume) 279 10*3/uL 130-400 Automated blood platelet mean volume measurement 8.6 [foz_us ] 7.4-10.4 Automated blood neutrophils/100 leukocytes 60 % 42-75 Automated blood lymphocytes/100 leukocytes 30 % 12-44 Blood monocytes/100 leukocytes 7 % 0-12 Automated blood eosinophils/100 leukocytes 3 % 0-10 Automated blood basophils/100 leukocytes 0 % 0-10 Blood neutrophils automated count (number/volume) 5.8 10*3 1.8-7.8 Blood lymphocytes automated count (number/volume) 2.8 10*3 1.0-4.0 Blood monocytes automated count (number/volume) 0.7 10*3 0.0-1.0 Automated eosinophil count 0.3 10*3/uL 0.0-0.3 Automated blood basophil count (count/volume) 0.0 10*3/uL 0.0-0.1 Comprehensive metabolic panel - 01/06/16 15:32 Serum or plasma sodium measurement (moles/volume) 140 mmol/ L 135-145 Serum or plasma potassium measurement (moles/volume) 3.8 mmol/L 3.6-5.0 Serum or plasma chloride measurement (moles/volume) 105 mmol /L 98-107 Carbon dioxide 22 mmol/L 21-32 Serum or plasma anion gap determination (moles/volume) 13 mmol/L 5-14 Serum or plasma urea nitrogen measurement (mass/volume) 17 mg/dL 7-18 Serum or plasma creatinine measurement (mass/volume) 0.80 mg /dL 0.60-1.30 Serum or plasma urea nitrogen/creatinine mass ratio 21 NRG Serum or plasma creatinine measurement with calculation of estimated glomerular filtration rate > NRG Serum or plasma glucose measurement (mass/volume) 94 mg/dL 70-105 Serum or plasma calcium measurement (mass/volume) 9.5 mg/dL 8.5-10.1 Serum or plasma total bilirubin measurement (mass/volume) 0.3 mg/dL 0.1-1.0 Serum or plasma alkaline phosphatase measurement (enzymatic activity/volume) 59 U/L 40-136 Serum or plasma aspartate aminotransferase measurement (enzymatic activity/ volume) 14 U/L 5-34 Serum or plasma alanine aminotransferase measurement (enzymatic activity/volume ) 21 U/L 0-55 Serum or plasma protein measurement (mass/volume) 7.1 g/dL 6.4-8.2 Serum or plasma albumin measurement (mass/volume) 4.1 g/dL 3.2-4.5 Serum or plasma ethanol measurement (mass/volume) - 01/06/16 15:32 Serum or plasma ethanol measurement (mass/volume) < mg/dL <10 Complete urinalysis with reflex to culture - 01/06/16 16:26 Urine color determination YELLOW NRG Urine clarity determination CLEAR NRG Urine pH measurement by test strip 7 5- 9 Specific gravity of urine by test strip 1.010 1.016-1.022 Urine protein assay by test strip, semi-quantitative NEGATIVE NEGATIVE Urine glucose detection by automated test strip NEGATIVE NEGATIVE Erythrocytes detection in urine sediment by light microscopy 1+ NEGATIVE Urine ketones detection by automated test strip NEGATIVE NEGATIVE Urine nitrite detection by test strip NEGATIVE NEGATIVE Urine total bilirubin detection by test strip NEGATIVE NEGATIVE Urine urobilinogen measurement by automated test strip (mass/volume) NORMAL NORMAL Urine leukocyte esterase detection by dipstick 3+ NEGATIVE Automated urine sediment erythrocyte count by microscopy (number/high power field) [HPF] NRG Automated urine sediment leukocyte count by microscopy (number/high power field ) [HPF] NRG Bacteria detection in urine sediment by light microscopy FEW NRG Squamous epithelial cells detection in urine sediment by light microscopy 10-25 NRG Crystals detection in urine sediment by light microscopy NONE NRG Casts detection in urine sediment by light microscopy NONE NRG Mucus detection in urine sediment by light microscopy NEGATIVE NRG Complete urinalysis with reflex to culture YES NRG Bacterial urine culture - 01/06/16 16:26 Bacterial urine culture [id number] NRG COLONY COUNT >100,000/ML NRG URINE CULTURE RESULTS <10,000/ML NRG Complete blood count (CBC) with automated white blood cell (WBC) differential - 01/07/16 06:12 Blood leukocytes automated count (number/volume) 8.2 10*3/ uL 4.3-11.0 Blood erythrocytes automated count (number/volume) 3.45 10*6 /uL 4.35-5.85 Venous blood hemoglobin measurement (mass/volume) 10.7 g/dL 11.5-16.0 Blood hematocrit (volume fraction) 31 % 35-52 Automated erythrocyte mean corpuscular volume 91 [foz_us] 80-99 Automated erythrocyte mean corpuscular hemoglobin (mass per erythrocyte) 31 pg 25-34 Automated erythrocyte mean corpuscular hemoglobin concentration measurement ( mass/volume) 34 g/dL 32-36 Automated erythrocyte distribution width ratio 13.1 % 10.0-14.5 Automated blood platelet count (count/volume) 236 10*3/uL 130-400 Automated blood platelet mean volume measurement 8.4 [foz_us ] 7.4-10.4 Automated blood neutrophils/100 leukocytes 63 % 42-75 Automated blood lymphocytes/100 leukocytes 28 % 12-44 Blood monocytes/100 leukocytes 6 % 0-12 Automated blood eosinophils/100 leukocytes 2 % 0-10 Automated blood basophils/100 leukocytes 0 % 0-10 Blood neutrophils automated count (number/volume) 5.2 10*3 1.8-7.8 Blood lymphocytes automated count (number/volume) 2.3 10*3 1.0-4.0 Blood monocytes automated count (number/volume) 0.5 10*3 0.0-1.0 Automated eosinophil count 0.2 10*3/uL 0.0-0.3 Automated blood basophil count (count/volume) 0.0 10*3/uL 0.0-0.1 Comprehensive metabolic panel - 01/07/16 06:12 Serum or plasma sodium measurement (moles/volume) 138 mmol/ L 135-145 Serum or plasma potassium measurement (moles/volume) 4.0 mmol/L 3.6-5.0 Serum or plasma chloride measurement (moles/volume) 106 mmol /L 98-107 Carbon dioxide 20 mmol/L 21-32 Serum or plasma anion gap determination (moles/volume) 12 mmol/L 5-14 Serum or plasma urea nitrogen measurement (mass/volume) 11 mg/dL 7-18 Serum or plasma creatinine measurement (mass/volume) 0.72 mg /dL 0.60-1.30 Serum or plasma urea nitrogen/creatinine mass ratio 15 NRG Serum or plasma creatinine measurement with calculation of estimated glomerular filtration rate > NRG Serum or plasma glucose measurement (mass/volume) 106 mg/dL 70-105 Serum or plasma calcium measurement (mass/volume) 8.7 mg/dL 8.5-10.1 Serum or plasma total bilirubin measurement (mass/volume) 0.3 mg/dL 0.1-1.0 Serum or plasma alkaline phosphatase measurement (enzymatic activity/volume) 50 U/L 40-136 Serum or plasma aspartate aminotransferase measurement (enzymatic activity/ volume) 18 U/L 5-34 Serum or plasma alanine aminotransferase measurement (enzymatic activity/volume ) 21 U/L 0-55 Serum or plasma protein measurement (mass/volume) 6.2 g/dL 6.4-8.2 Serum or plasma albumin measurement (mass/volume) 3.6 g/dL 3.2-4.5 Complete blood count (CBC) with automated white blood cell (WBC) differential - 06/19/16 17:15 Blood leukocytes automated count (number/volume) 17.4 10*3/ uL 4.3-11.0 Blood erythrocytes automated count (number/volume) 4.11 10*6 /uL 4.35-5.85 Venous blood hemoglobin measurement (mass/volume) 12.7 g/dL 11.5-16.0 Blood hematocrit (volume fraction) 37 % 35-52 Automated erythrocyte mean corpuscular volume 90 [foz_us] 80-99 Automated erythrocyte mean corpuscular hemoglobin (mass per erythrocyte) 31 pg 25-34 Automated erythrocyte mean corpuscular hemoglobin concentration measurement ( mass/volume) 34 g/dL 32-36 Automated erythrocyte distribution width ratio 13.4 % 10.0-14.5 Automated blood platelet count (count/volume) 443 10*3/uL 130-400 Automated blood platelet mean volume measurement 8.4 [foz_us ] 7.4-10.4 Automated blood neutrophils/100 leukocytes 63 % 42-75 Automated blood lymphocytes/100 leukocytes 29 % 12-44 Blood monocytes/100 leukocytes 7 % 0-12 Automated blood eosinophils/100 leukocytes 1 % 0-10 Automated blood basophils/100 leukocytes 0 % 0-10 Blood neutrophils automated count (number/volume) 11.0 10*3 1.8-7.8 Blood lymphocytes automated count (number/volume) 5.1 10*3 1.0-4.0 Blood monocytes automated count (number/volume) 1.1 10*3 0.0-1.0 Automated eosinophil count 0.2 10*3/uL 0.0-0.3 Automated blood basophil count (count/volume) 0.0 10*3/uL 0.0-0.1 Blood manual differential performed detection - 06/19/16 17:15 Blood monocytes/100 leukocytes 5 % NRG Manual blood segmented neutrophils/100 leukocytes 51 % NRG Blood band neutrophils/100 leukocytes 1 % NRG Manual blood lymphocytes/100 leukocytes 42 % NRG Manual eosinophils/100 leukocytes in nose 1 % NRG Manual blood basophils/100 leukocytes 0 % NRG Blood erythrocyte morphology finding identification NORMAL NR Comprehensive metabolic panel - 06/19/16 17:15 Serum or plasma sodium measurement (moles/volume) 141 mmol/ L 135-145 Serum or plasma potassium measurement (moles/volume) 4.0 mmol/L 3.6-5.0 Serum or plasma chloride measurement (moles/volume) 106 mmol /L 98-107 Carbon dioxide 19 mmol/L 21-32 Serum or plasma anion gap determination (moles/volume) 16 mmol/L 5-14 Serum or plasma urea nitrogen measurement (mass/volume) 13 mg/dL 7-18 Serum or plasma creatinine measurement (mass/volume) 1.01 mg /dL 0.60-1.30 Serum or plasma urea nitrogen/creatinine mass ratio 13 NRG Serum or plasma creatinine measurement with calculation of estimated glomerular filtration rate 57 NRG Serum or plasma glucose measurement (mass/volume) 122 mg/dL 70-105 Serum or plasma calcium measurement (mass/volume) 9.6 mg/dL 8.5-10.1 Serum or plasma total bilirubin measurement (mass/volume) 0.4 mg/dL 0.1-1.0 Serum or plasma alkaline phosphatase measurement (enzymatic activity/volume) 73 U/L 40-136 Serum or plasma aspartate aminotransferase measurement (enzymatic activity/ volume) 23 U/L 5-34 Serum or plasma alanine aminotransferase measurement (enzymatic activity/volume ) 33 U/L 0-55 Serum or plasma protein measurement (mass/volume) 7.7 g/dL 6.4-8.2 Serum or plasma albumin measurement (mass/volume) 4.6 g/dL 3.2-4.5 Lipase - 06/19/16 17:15 Lipase 12 U/L 8-78 Urine drug screening test - 06/19/16 19:14 Urine phencyclidine detection by screening method NEGATIVE NEGATIVE Urine benzodiazepines detection by screening method NEGATIVE NEGATIVE Urine cocaine detection NEGATIVE NEGATIVE Urine amphetamines detection by screening method NEGATIVE NEGATIVE Urine methamphetamine detection by screening method NEGATIVE NEGATIVE Urine cannabinoids detection by screening method NEGATIVE NEGATIVE Urine opiates detection by screening method NEGATIVE NEGATIVE Urine barbiturates detection NEGATIVE NEGATIVE Screening urine tricyclic antidepressants detection NEGATIVE NEGATIVE Urine methadone detection by screening method NEGATIVE NEGATIVE Urine oxycodone detection NEGATIVE NEGATIVE Urine propoxyphene detection NEGATIVE NEGATIVE Complete urinalysis with reflex to culture - 06/19/16 19:14 Urine color determination YELLOW NRG Urine clarity determination VERY CLOUDY NRG Urine pH measurement by test strip 5 5- 9 Specific gravity of urine by test strip 1.025 1.016-1.022 Urine protein assay by test strip, semi-quantitative 2+ NEGATIVE Urine glucose detection by automated test strip NEGATIVE NEGATIVE Erythrocytes detection in urine sediment by light microscopy 2+ NEGATIVE Urine ketones detection by automated test strip 1+ NEGATIVE Urine nitrite detection by test strip NEGATIVE NEGATIVE Urine total bilirubin detection by test strip NEGATIVE NEGATIVE Urine urobilinogen measurement by automated test strip (mass/volume) NORMAL NORMAL Urine leukocyte esterase detection by dipstick 3+ NEGATIVE Automated urine sediment erythrocyte count by microscopy (number/high power field) [HPF] NRG Automated urine sediment leukocyte count by microscopy (number/high power field ) [HPF] NRG Bacteria detection in urine sediment by light microscopy FEW NRG Squamous epithelial cells detection in urine sediment by light microscopy 5-10 NRG Crystals detection in urine sediment by light microscopy NONE NRG Casts detection in urine sediment by light microscopy NONE NRG Mucus detection in urine sediment by light microscopy NEGATIVE NRG Complete urinalysis with reflex to culture YES NRG Bacterial urine culture - 06/19/16 19:14 Bacterial urine culture [id number] NRG COLONY COUNT >100,000/ML NRG FTX;REPORTABLE MIXED COLONY GROWTH NRG Capillary blood glucose measurement by glucometer (mass/volume) - 07/13/16 09: 46 Capillary blood glucose measurement by glucometer (mass/volume) 105 mg/dL 70-110 Encounters ACCT No. Visit Date/Time Discharge Status Pt. Type Provider Facility Loc./Unit Complaint [id number] 08/27/2014 08:55:00 08/27/2014 23: 59:59 CLS Outpatient EDUARDO GRUBER APRN [id number] 07/23/2014 10:13:00 07/23/2014 23: 59:59 CLS Outpatient EDUARDO GRUBER APRN [id number] 04/10/2014 08:19:00 04/10/2014 23: 59:59 CLS Outpatient EDUARDO GRUBER APRN [id number] 02/05/2014 08:51:00 02/05/2014 23: 59:59 CLS Outpatient EDUARDO GRUBER APRN S [id number] 11/14/2013 09:27:00 11/14/2013 23: 59:59 CLS Outpatient BENTLEY SARABIA APRN [id number] 11/14/2013 08:46:00 11/14/2013 23: 59:59 CLS Outpatient EDUARDO GRUBER APRN S [id number] 10/26/2013 16:57:00 10/26/2013 23: 59:59 CLS Outpatient EDUARDO GRUBER APRN S [id number] 06/20/2013 08:26:00 06/20/2013 23: 59:59 CLS Outpatient EDUARDO GRUBER APRN [id number] 05/01/2013 09:33:00 05/01/2013 23: 59:59 CLS Outpatient EDUARDO GRUBER APRN [id number] 04/24/2013 09:37:00 04/24/2013 23: 59:59 CLS Outpatient ELVIA RUIZ DO [id number] 12/19/2012 06:36:00 12/19/2012 23: 59:59 CLS Outpatient CHRISS MENDEZ MD [id number] 06/27/2012 13:49:00 06/27/2012 23: 59:59 CLS Outpatient [id number] 06/27/2012 13:49:00 06/27/2012 23: 59:59 CLS Outpatient
--- OUTSIDE RECORDS SUMMARY | 2016-08-11 17:47 | XMS REPORT ---
Author Author EDUARDO GRUBER [facility] eClinicalWorks Address Unknown Phone Unavailable Care Team Providers Care Sales Hunter Name Role Phone EDUARDO GRUBER Unavailable Allergies, [...] N76.0 Active Problem Headache R51 Active Assessment Wound cellulitis L03.90 Active Problem Hypoxemia R09.02 Active Problem Asthma 493.90 Active Medications Medication Code System Code Instructions Start Date End Date Status Dosage ProAir HFA [facility] [address]-77 108 (90 Base) MCG/ACT INHALE TWO PUFFS BY MOUTH EVERY 6 HOURS NEEDED FOR SHORTNESS OF BREATH OR COUGH Fluticasone Propionate [facility] 24358160559 50 MCG/ACT INSTILL ONE SPRAY INTO EACH NOSTRIL TWICE DAILY Meclizine HCl [facility] 44478429470 25 MG TAKE 1 TABLET BY MOUTH FOUR TIMES DAILY NEEDED Singulair [facility] [address]-76 10 MG Orally Once a day 1 tablet in the evening propranolol ND 0 40 mg by oral route 2 times a day May 21, 2014 1 tablet Ondansetron [facility] [address]-40 4 MG Orally every 8 hrs 1 tablet on the tongue and allow to dissolve Ranitidine HCl [facility] 01075048754 150 MG TAKE 1 TABLET BY MOUTH TWICE DAILY Omeprazole [facility] 39698478876 40 mg Orally Once a day 1 capsule Naproxen [facility] 41511353089 500 MG TAKE 1 TABLET BY MOUTH TWICE DAILY WITH FOOD 30 Silvadene [facility] [address]-62 1 % Externally twice a day Jan 14, 2016 1 application to affected area Cetirizine HCl [facility] [address]-83 10 mg Orally Once a day for itching August 19, 2015 1 tablet as needed Blood Pressure Monitor/M Cuff [facility] 0 1 Once a day September 19, 2015 Check Blood Pressure Amitriptyline HCl [facility] 11705025616 25 MG TAKE 3 TABLETS BY MOUTH AT BEDTIME NEEDED FOR SLEEP OR PAIN 30 Procedures Procedure Coding System Code Date Office Visit, Est Pt., Level 3 CPT-4 01266 Jan 14, 2016 Vital Signs Date/Time: Jan 14, 2016 Cardiac Monitoring Heart Rate 80 bpm Weight 193.8 lbs Height 62 in BMI 35.44 Index Blood Pressure Diastolic 92 mmHg Blood Pressure Systolic 146 mmHg Results No Known Results Summary Purpose eClinicalWorks Submission
--- OUTSIDE RECORDS SUMMARY | 2016-08-11 17:47 | XMS REPORT ---
Author Author EDUARDO GRUBER Organization [employer] Address Unknown Phone Unavailable Care Team Providers Care Cardiology Fellow Name Role Phone EDUARDO GRUBER CP Unavailable Allergies No Known Allergies Problems Problem Type Condition Code Onset Dates Condition Status Problem Hypertension I10 Active Problem Vaginitis N76.0 Active Problem Headache R51 Active Problem Hypoxemia R09.02 Active Problem Asthma 493.90 Active Medications No Known Medications Results No Known Results Summary Purpose eClinicalWorks Submission
--- OUTSIDE RECORDS SUMMARY | 2016-08-11 17:47 | XMS REPORT ---
Author Author EDUARDO GRUBER [facility] eClinicalWorks Address Unknown Phone Unavailable Care Team Providers Care Field Aide Name Role Phone EDUARDO GRUBER CP Unavailable Allergies, Adverse Reactions, Alerts Substance Reaction Event Type Penicillin V Potassium Info Not Available Drug Allergy Hydrocodone-Acetaminophen Info Not Available Drug Allergy Cyclobenzaprine HCl Info Not Available Drug Allergy Cipro Info Not Available Drug Allergy Tramadol Info Not Available Drug Allergy Problems Problem Type Condition Code Onset Dates Condition Status Problem Special screening for malignant neoplasms, colon V76.51 Active Assessment Encounter for immunization Z23 Active Problem Other sign and symptom in breast 611.79 Active Assessment Urinary tract infection, site unspecified N39.0 Active Problem Routine gynecological examination V72.31 Active Problem Pain in joint, forearm 719.43 Active Problem Galactorrhea not associated with childbirth 611.6 Active Problem Other specified disorder of skin 709.8 Active Problem Benign paroxysmal positional vertigo 386.11 Active Problem Cellulitis and abscess of unspecified site 682.9 Active Problem Herpes zoster without mention of complication 053.9 Active Problem Asthma 493.90 Active Problem Impetigo 684 Active Problem Candidiasis of skin and nails [...] infection, site not specified 599.0 Active Problem Dyspareunia 625.0 Active Medications Medication Code System Code Instructions Start Date End Date Status Dosage Naproxen [facility] 05101142558 500 MG TAKE 1 TABLET BY MOUTH TWICE DAILY WITH FOOD Ranitidine HCl [facility] 69142739526 150 MG TAKE 1 TABLET BY MOUTH TWICE DAILY Acyclovir [facility] [address]-50 400 mg Apr 24, 2013 1 tablet by Oral route 3 times per day for 10 days Meclizine HCl [facility] 71225474100 25 MG TAKE 1 TABLET BY MOUTH FOUR TIMES A DAY NEEDED Permethrin [facility] [address]-25 5 % Externally Once a day October 16, 2014 to body from neck to toes. Avoid mucous membranes. Shower off in 8-10 hours Flonase [facility] [address]-43 50 MCG/DOSE Nasally 2 times a day Jan 22, 2015 1 spray in each nostril Vistaril [facility] [address]-88 25 MG Orally 4 times a day as needed for itching October 16, 2014 1-2capsule as needed Cetirizine HCl [facility] [address]-62 10 MG Orally Once a day October 15, 2014 1 tablet as needed Amitriptyline HCl [facility] 36426569228 25 MG 3 tablet by Oral route 1 time per day PRN q hs prn sleep or pain meclizine [facility] 0 25 mg July 23, 2014 1 tablet by Oral route 4 times per day PRN Singulair [facility] [address]-49 10 MG Orally Once a day in the PM Jan 22, 2015 1 tablet in the evening ProAir HFA [facility] 46336120612 108 (90 Base) MCG/ACT inhale 2 puffs by Inhalation route every 6 hours as needed PRN shortness of breath/cough Procedures Procedure Coding System Code Date URINE CULTURE/COLONY COUNT CPT-4 66077 Feb 26, 2015 FLUARIX QUAD (3 & UP)-GSK-2014 CPT-4 00499 Feb 26, 2015 URINALYSIS, AUTO, W/O SCOPE CPT-4 65715 Feb 26, 2015 Office Visit, Est Pt., Level 3 CPT-4 71092 Feb 26, 2015 SINGLE IMMUNIZATION ADMIN CPT-4 91750 Feb 26, 2015 Vital Signs Date/Time: Feb 26, 2015 Temperature 97.7 F Weight 175 lbs Height 62 in BMI 32.00 Index Blood Pressure Diastolic 80 mmHg Blood Pressure Systolic 132 mmHg Cardiac Monitoring Heart Rate 70 bpm Results Name Result Date Reference Range Unit Abnormality Flag UA LONG DIP (IN HOUSE) CULTURE, URINE Immunizations Vaccine Administration Date FLUARIX QUAD (3 & UP)-GSK-2014Feb 26, 2015 Summary Purpose eClinicalWorks Submission
--- OUTSIDE RECORDS SUMMARY | 2016-08-11 17:47 | XMS REPORT ---
Author Author EDUARDO GRUBER Organization [employer] Address Unknown Phone Unavailable Care Team Providers Care Sales Activity Manager Name Role Phone EDUARDO GRUBER CP Unavailable Allergies No Known Allergies Problems Problem Type Condition Code Onset Dates Condition Status Problem Hypertension I10 Active Problem Vaginitis N76.0 Active Problem Headache R51 Active Assessment Gastritis K29.70 Active Problem Hypoxemia R09.02 Active Problem Asthma 493.90 Active Medications Medication Code System Code Instructions Start Date End Date Status Dosage Omeprazole [facility] [address]-66 20 mg Orally twice a day August 26, 2015 1 capsule Results No Known Results Summary Purpose eClinicalWorks Submission
--- OUTSIDE RECORDS SUMMARY | 2016-08-11 17:47 | XMS REPORT ---
Author Author EDUARDO GRUBER [facility] eClinicalWorks Address Unknown Phone Unavailable Care Team Providers Care Project Coach Name Role Phone EDUARDO GRUBER CP Unavailable Allergies, Adverse Reactions, Alerts Substance Reaction Event Type Penicillin V Potassium Info Not Available Drug Allergy Hydrocodone-Acetaminophen Info Not Available Drug Allergy Cyclobenzaprine HCl Info Not Available Drug Allergy Cipro Info Not Available Drug Allergy Tramadol Info Not Available Drug Allergy Problems Problem Type Condition ICD-9 Code Onset Dates Condition Status Assessment Asthma 493.90 Active Problem Special screening for malignant neoplasms, colon V76.51 Active Assessment Abdominal pain 789.00 Active Problem Other sign and symptom in breast 611.79 Active Assessment Allergic rhinitis 477.9 Active Problem Routine gynecological examination V72.31 Active [...] Instructions Start Date End Date Status Dosage Singulair [facility] [address]-36 10 MG Orally Once a day in the PM Jan 22, 2015 1 tablet in the evening Acyclovir [facility] [address]-41 400 mg Apr 24, 2013 1 tablet by Oral route 3 times per day for 10 days Vistaril [facility] [address]-46 25 MG Orally 4 times a day as needed for itching October 16, 2014 1-2capsule as needed Permethrin [facility] [address]-39 5 % Externally Once a day October 16, 2014 to body from neck to toes. Avoid mucous membranes. Shower off in 8-10 hours Flonase [facility] [address]-60 50 MCG/DOSE Nasally 2 times a day Jan 22, 2015 1 spray in each nostril ProAir HFA [facility] 42074411342 108 (90 Base) MCG/ACT inhale 2 puffs by Inhalation route every 6 hours as needed PRN shortness of breath/cough meclizine NDC 0 25 mg July 23, 2014 1 tablet by Oral route 4 times per day PRN Amitriptyline HCl [facility] 23134601440 25 MG 3 tablet by Oral route 1 time per day PRN q hs prn sleep or pain Ranitidine HCl [facility] 71711876010 150 MG TAKE 1 TABLET BY MOUTH TWICE DAILY propranolol NDC 0 40 mg May 21, 2014 1 Tablet by Oral route 2 times per day conjugated estrogens NDC 0 0.625 mg/gram November 14, 2013 insert 0.5 g by Vaginal route 2 times per week Naproxen [facility] 42257495602 500 MG TAKE 1 TABLET BY MOUTH TWICE DAILY WITH FOOD Cetirizine HCl [facility] [address]-74 10 MG Orally Once a day October 15, 2014 1 tablet as needed Fluticasone Propionate [facility] 91764838070 50 MCG/ACT INSTILL ONE SPRAY IN EACH NOSTRIL TWICE DAILY Procedures Procedure Coding System Code Date Office Visit, Est Pt., Level 3 CPT-4 07064 Jan 22, 2015 Vital Signs Date/Time: Jan 22, 2015 Temperature 97.5 F Weight 179.5 lbs Height 62 in BMI 32.83 Index Blood Pressure Diastolic 100 mmHg Blood Pressure Systolic 154 mmHg Cardiac Monitoring Heart Rate 72 bpm Results No Known Results Summary Purpose eClinicalWorks Submission
--- OUTSIDE RECORDS SUMMARY | 2016-08-11 17:47 | XMS REPORT ---
Author Author EDUARDO GRUBER Organization [employer] Address Unknown Phone Unavailable Care Team Providers Care Leaflet Distributor Name Role Phone EDUARDO GRUBER CP Unavailable Allergies No Known Allergies Problems Problem Type Condition Code Onset Dates Condition Status Problem Hypertension I10 Active Problem Vaginitis N76.0 Active Problem Headache R51 Active Problem Hypoxemia R09.02 Active Problem Asthma 493.90 Active Medications Medication Code System Code Instructions Start Date End Date Status Dosage Permethrin [facility] [address]-13 5 % Externally Repeat in 2 weeks to kill the eggs Apply 60gm from Neck to toes and include groin. Rinse after 14 hours propranolol NDC 0 40 mg by oral route 2 times a day May 21, 2014 1 tablet Cetirizine HCl [facility] [address]-83 10 mg Orally Once a day for itching August 19, 2015 1 tablet as needed Naproxen [facility] [address]-74 500 MG TAKE 1 TABLET BY MOUTH TWICE DAILY WITH FOOD ProAir HFA [facility] [address]-46 108 (90 Base) MCG/ACT INHALE TWO PUFFS BY MOUTH EVERY 6 HOURS NEEDED FOR SHORTNESS OF BREATH OR COUGH Fluticasone Propionate [facility] 31329939497 50 MCG/ACT INSTILL ONE SPRAY INTO EACH NOSTRIL TWICE DAILY Meclizine HCl [facility] [address]-72 25 MG Orally 4 times a day 1 tablet as needed Ranitidine HCl [facility] [address]-94 150 MG TAKE 1 TABLET BY MOUTH TWICE DAILY Results No Known Results Summary Purpose eClinicalWorks Submission
--- OUTSIDE RECORDS SUMMARY | 2016-08-11 17:47 | XMS REPORT ---
Author Author EDUARDO GRUBER [facility] Address [address] [place] [address] Care Team Providers Care Piano Bench Assembler Name Role Phone EDUARDO GRUBER Unavailable PROBLEMS Type Condition ICD9-CM Code HIC04-FA Code Onset Dates Condition Status SNOMED Code Problem Headache R51 Active 33270386 Problem Hypertension I10 Active 25280038 Problem Asthma 493.90 Active 115873273 Assessment Decubitus skin ulcer, stage I L89.91 Apr, Active 911588906 Problem Vaginitis N76.0 Active 23072208 Problem Hypoxemia R09.02 Active 894214659 ALLERGIES Substance Reaction Event Type Date Status Penicillin V Potassium Unknown Drug Allergy Apr, Active Hydrocodone-Acetaminophen Unknown Drug Allergy Apr, Active Cyclobenzaprine HCl Unknown Drug Allergy Apr, Active Cipro Unknown Drug Allergy Apr, Active Tramadol Unknown Drug Allergy Apr, Active SOCIAL HISTORY No smoking Hx information available PLAN OF CARE VITAL SIGNS Height 62 in 2016-04-07 Weight 196 lbs 2016-04-07 Heart Rate 80 bpm 2016-04-07 Respiratory Rate 20 2016-04-07 BMI 35.84 kg/m2 2016-04-07 Blood pressure systolic 152 mmHg 2016-04-07 Blood pressure diastolic 92 mmHg 2016-04-07 MEDICATIONS Medication Instructions Dosage Frequency Start Date End Date Duration Status propranolol 40 mg by oral route 4 times a day 1 tablet 6h May, Active Fluticasone Propionate 50 MCG/ACT INSTILL ONE SPRAY INTO EACH NOSTRIL TWICE DAILY 30 Active Ondansetron 4 MG Orally every 8 hrs 1 tablet on the tongue and allow to dissolve 8h Active Meclizine HCl 25 MG TAKE 1 TABLET BY MOUTH FOUR TIMES DAILY NEEDED 15 Active Ranitidine HCl 150 MG TAKE 1 TABLET BY MOUTH TWICE DAILY 30 Active ProAir HFA 108 (90 Base) MCG/ACT INHALE TWO PUFFS BY MOUTH EVERY 6 HOURS NEEDED FOR SHORTNESS OF BREATH OR COUGH Active Silvadene 1 % Externally twice a day 1 application to affected area 12h 13 Jan, 2016 Active Naproxen 500 MG TAKE 1 TABLET BY MOUTH TWICE DAILY WITH FOOD 30 90 Active Singulair 10 MG Orally Once a day 1 tablet in the evening 24h 90 Active Cetirizine HCl 10 mg Orally Once a day for itching 1 tablet as needed 30 Active Amitriptyline HCl 25 MG TAKE 3 TABLETS BY MOUTH AT BEDTIME NEEDED FOR SLEEP OR PAIN 30 30 Active Omeprazole 40 mg Orally Once a day 1 capsule 24h 90 Active RESULTS No Results PROCEDURES Procedure Date Ordered Related Diagnosis Body Site Office Visit, Est Pt., Level 3 Apr 07, 2016 IMMUNIZATIONS No Known Immunizations
== END 2016-07-27 12:05 | disposition home or self-care (01) ==
LOC: DELPENDDIS → ENDO 09:45
PROVIDERS: ATTEND Surgery
DX: K64.8 Other hemorrhoids (principal); K57.90 Diverticulosis of intestine, part unspecified, without perforation or abscess without bleeding

== ENCOUNTER 2016-12-18 02:31 | Observation (INO) | payer MEDICAID ==
[~2016-12-18] VITALS: Ht 157.5 cm; Wt 86.6 kg
[2016-12-18] MEDS ORDERED: ALPRAZolam 0.25 MG (XANAX) TAB PO ONE (02:45)
[2016-12-18 02:48] LABS: BILIRUBIN,URINE NEGATIVE (NEGATIVE); KETONES,URINE NEGATIVE (NEGATIVE); LEUKOCYTE ESTERASE ,URINE 2+ (NEGATIVE); NITRITE,URINE NEGATIVE (NEGATIVE); PH,URINE 5 (5-9); PROTEIN,URINE 1+ (NEGATIVE); UROBILINOGEN,URINE NORMAL (NORMAL)
[2016-12-18 03:17] LABS: BASOPHILS # (AUTO) 0.1 10^3/uL (0.0-0.1); BASOPHILS % (AUTO) 1 % (0-10); EOSINOPHILS # (AUTO) 0.2 10^3/uL (0.0-0.3); EOSINOPHILS % (AUTO) 2 % (0-10); LYMPHOCYTES # (AUTO) 2.6 X 10^3 (1.0-4.0); LYMPHOCYTES % (AUTO) 25 % (12-44); MEAN CORPUSCULAR HEMOGLOBIN 30 PG (25-34); MEAN CORPUSCULAR HGB CONC 34 G/DL (32-36); MEAN CORPUSCULAR VOLUME 90 FL (80-99); MEAN PLATELET VOLUME 8.5 FL (7.4-10.4); MONOCYTES # (AUTO) 0.7 X 10^3 (0.0-1.0); MONOCYTES % (AUTO) 7 % (0-12); NEUTROPHILS # (AUTO) 6.8 X 10^3 (1.8-7.8); NEUTROPHILS % (AUTO) 65 % (42-75); PLATELET COUNT 272 10^3/uL (130-400); RED BLOOD COUNT 4.16 10^6/uL (4.35-5.85); RED CELL DISTRIBUTION WIDTH 13.6 % (10.0-14.5); WHITE BLOOD COUNT 10.4 10^3/uL (4.3-11.0)
[2016-12-18 03:34] LABS: ALANINE AMINOTRANSFERASE 23 U/L (0-55); ALBUMIN 4.4 GM/DL (3.2-4.5); ALCOHOL 41 MG/DL (<10); ANION GAP 19 MMOL/L (5-14); ASPARTATE AMINO TRANSFERASE 19 U/L (5-34); BILIRUBIN,TOTAL 0.3 MG/DL (0.1-1.0); BLOOD UREA NITROGEN 14 MG/DL (7-18); BUN/CREATININE RATIO 19; CALCIUM 9.6 MG/DL (8.5-10.1); CARBON DIOXIDE 16 MMOL/L (21-32); CHLORIDE 106 MMOL/L (98-107); CREATININE SERUM 0.73 MG/DL (0.60-1.30); GFR ESTIMATED > 60; GLUCOSE 103 MG/DL (70-105); SODIUM 141 MMOL/L (135-145); TOTAL PROTEIN 8.2 GM/DL (6.4-8.2)
--- NOTE | 2016-12-18 03:55 | ED Psychosocial ---
General Chief Complaint: Psych/Social Disorder Stated Complaint: SUICIDAL,HOMICIDAL Nursing Triage Note: PT TO ED PER [employer], IN HANDCUFFS, FOR C/O SUICIDAL IDEATIONS. PT REPORTS SHE WANTS TO "SHOOT HERSELF W/ A GUN." PER [employer], PT HAS BEEN AT POLICE STATION "ALL NIGHT". PPD STATES PT IS #12 ON THE WAITING LIST FOR OSH. NO OTHER C/O VOICED Source: patient, police, other (behavioral health screening) (BRIONNA ROOT MD) History of Present Illness Time seen by provider: 02:33 Initial Comments This 56 year old woman presents to the emergency room escorted by [place] police due to expressions of suicidal ideation. She was in some sort of conflict with family this evening. Has some point [place] police and EMS became involved. Patient refused EMS transport to the hospital. However, she repeatedly made comments expressing suicidal ideation. She was asking for a gun to perform suicide. She was agitated for police and the [facility] screener. Rufino Truong performed the [facility] behavioral health screening at the Police [employer]. He recommended inpatient admission. Patient has been admitted in the past for similar episodes at OSH. Currently no beds are available and she is on a waiting list. She was brought to the emergency room for medical screening and holding until psychiatric placement can be provided. Patient openly admits that she desires to commit suicide upon our assessment. She states she intends to kill herself with a gun. It was also noted that patient had some auditory hallucinations telling her to harm others around 23: 40. (BRIONNA ROOT MD) Allergies and Home Medications Allergies Coded Allergies: Penicillins (Verified Allergy, Unknown, 08/20/15) tuberculin, purified protein deriva (Verified Adverse Reaction, Mild, 08/19) Home Medications Albuterol Sulfate 8.5 Gm Hfa.aer.ad, 2 PUFF INH Q6H PRN for SHORTNESS OF BREATH, (Reported) Cetirizine HCl 10 Mg Tablet, 10 MG PO DAILY, (Reported) Dicyclomine HCl 20 Mg Tablet, 20 MG PO BID, (Reported) Levothyroxine Sodium 50 Mcg Tablet, 50 MCG PO DAILY@0630 for 30 Days Prescribed by: MANI THORNTON on 12/21/16 0948 Montelukast Sodium 10 Mg Tablet, 10 MG PO HS, (Reported) Nitrofurantoin Monohyd/M-Cryst 100 Mg Capsule, 1 TAB PO BID, #14 Prescribed by: MANI THORNTON on 12/21/16 0948 Propranolol HCl 60 Mg Tablet, 60 MG PO BID, (Reported) Sertraline HCl 50 Mg Tablet, 50 MG PO DAILY, (Reported) Constitutional: no symptoms reported EENTM: no symptoms reported Respiratory: no symptoms reported Cardiovascular: no symptoms reported Gastrointestinal: no symptoms reported Genitourinary: no symptoms reported : No Musculoskeletal: no symptoms reported Skin: no symptoms reported Psychiatric/Neurological: See HPI (BRIONNA ROOT MD) Past Flgjhqu-Xvwqnx-Kbbpyp Hx Patient Social History Alcohol Use: Denies Use Recreational Drug Use: No Smoking Status: Never a Smoker Recent Foreign Travel: No Contact w/Someone Who Travel: No Recent Infectious Disease Expo: No Recent Hopitalizations: No (BRIONNA ROOT MD) Immunizations Up To Date Tetanus Booster (TDap): Unknown Date of Pneumonia Vaccine: Feb 01, 2012 Date of Influenza Vaccine: Feb 01, 2016 (BRIONNA ROOT MD) Seasonal Allergies Seasonal Allergies: No (BRIONNA ROOT MD) Surgeries HX Surgeries: Yes Surgeries: Appendectomy, Section, Gallbladder, 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, Oophorectomy, 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 (BRIONNA ROOT MD) Respiratory Hx Respiratory Disorders: Yes Respiratory Disorders: Asthma, Sleep Apnea, COPD (BRIONNA ROOT MD) Cardiovascular Hx Cardiac Disorders: Yes Cardiac Disorders: Hypertension, Syncope (BRIONNA ROOT MD) Neurological Hx Neurological Disorders: Yes Neurological Disorders: Headaches /Migraines, Seizure Disorder, Vertigo (BRIONNA ROOT MD) Reproductive System Hx Reproductive Disorders: Yes Sexually Transmitted Disease: No HIV/AIDS: No Female Reproductive Disorders: 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, 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 (BRIONNA ROOT MD) Genitourinary Hx Genitourinary Disorders: Yes Genitourinary Disorders: UTI-Chronic (BRIONNA ROOT MD) Gastrointestinal Hx Gastrointestinal Disorders: Yes (rectal pain and bleeding) Gastrointestinal Disorders: Ulcer (BIRONNA ROOT MD) Musculoskeletal Hx Musculoskeletal Disorders: Yes Musculoskeletal Disorders: Chronic Back Pain (BRIONNA ROOT MD) Endocrine Hx Endocrine Disorders: Yes Endocrine Disorders: Diabetes, Non-Insulin dep (BRIONNA ROOT MD) HEENT HX ENT Disorders: Yes HEENT Disorders: Tinnitis Loss of Vision: Denies Hearing Impairment: Denies (BRIONNA ROOT MD) Cancer Hx Cancer: No (BRIONNA ROOT MD) Psychosocial Hx Psychiatric Problems: Yes (EXTENSIVE PSYCH ISSUES, MULTIPLE PSYCH ADMITS, INCLUDING [place]) Behavioral Health Disorders: Anxiety, Suicide Attempts, Depression (BRIONNA ROOT MD) Integumentary HX Skin/Integumentary Disorder: No (BRIONNA ROOT MD) Blood Transfusions Hx Blood Disorders: No Adverse Reaction to a Blood Tr: No (BRIONNA ROOT MD) Family Medical History Significant Family History: No Pertinent Family Hx Family Medial History: Congenital heart disease G8 SISTER (HOLE IN HEART ) Neoplasm 19 MOTHER (STOMACH ) G8 BROTHER (STOMACH) (BRIONNA ROOT MD) Family Medial History: Congenital heart disease G8 SISTER (HOLE IN HEART ) Neoplasm 19 MOTHER (STOMACH ) G8 BROTHER (STOMACH) (PRIYANK CAMARAA [employer] DO) Physical Exam Vital Signs Vital Sign - Last 12Hours 12/18/16 02:31 Temp 97.2 Pulse 99 Resp 20 B/P (MAP) 172/115 Pulse Ox 97 O2 Delivery Room Air (VLADIMIR CAMARA [employer] DO) Vital Signs Capillary Refill : Less Than 3 Seconds (BRIONNA ROOT MD) General Appearance: WD/WN, moderate distress HEENT: PERRL/EOMI, normal ENT inspection Neck: normal inspection Respiratory: lungs clear, normal breath sounds, no respiratory distress, no accessory muscle use Cardiovascular: regular rate, rhythm, no edema, no murmur Gastrointestinal: normal bowel sounds, non tender, soft Extremities: normal inspection, no pedal edema 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, no motor/sensory deficits, alert, oriented x 3 Appearance/Memory: appropriate appearance, impaired insight Behavior/Eye Contact: cooperative, avoids eye contact Thoughts/Hallucinations: auditory hallucinations, other (suicidal ideation) Skin: normal color, warm/dry (BRIONNA ROOT MD) Progress/Results/Core Measures Results/Orders Lab Results Laboratory Tests Test 12/21/16 10:05 Range/Units Urine Test NEGATIVE NEGATIVE (VLADIMIR CAMARA DO) Medications Given in ED (VLADIMIR CAMARA DO) Vital Signs/I&O (VLADIMIR CAMARA DO) Blood Pressure Mean: 134 Progress Note #1: Time: 03:57 Progress Note Patient was seen and examined upon arrival. She was accompanied by [place] police. She was noted to be hypertensive and agitated. She reported a last taking her blood pressure medications yesterday morning. She was given a dose of her own supply of propranolol 60 mg. She was also given Xanax 0.25 mg. She is now resting comfortably. Progress Note #2: Time: 04:51 Progress Note Patient has been medically cleared. She is still awaiting placement at a psychiatric facility. Rufino Truong has been updated on her status. He reports she is number 12 on the waiting list at [facility] where she has already been accepted for admission. He will contact his supervisor blood donor recruiters, Sarath anderson, at 08:00 to discuss any other options. Until then patient will wait in the emergency room. Her agitation was treated with Xanax and her hypertension was treated with her usual propranolol dose. Blood pressure has significantly improved to 114/ 74. Patient is no longer agitated and resting comfortably. Urinary tract infection was treated with Macrobid. Patient is still very insistent that she is suicidal. Progress Note #3: Time: 07:13 Progress Note Patient received Macrobid for treatment of urinary tract infection. Care of this patient is being transferred to Dr. Camara at this time while she awaits placement and updated on placement from [facility]. (BRIONNA ROOT MD) Progress Note : Progress Note 0715--ASSUMED CARE FROM DR. ROOT, REPORTED TO ME THAT PT HAS BEEN ACCEPTED AT [facility], BUT PT IS 12TH ON WAITING LIST. RUFINO FROM [facility] WILL BE DISCUSSING CARE WITH SARATH ANDERSON AT 0800, AND THEY WILL BE CONTACTING ME WITH UPDATED INFORMATION AT THAT TIME. PT IS RESTING QUIETLY AT THIS TIME. SITTER IS IN ROOM WITH PT. (VLADIMIR CAMARA DO) ECG Initial ECG Impression Date: Dec 18, 2016 Initial ECG Impression Time: 02:42 Initial ECG Rate: 92 Initial ECG Rhythm: Normal Sinus Initial ECG Intervals: Normal Initial ECG Impression: Normal Comment Normal sinus rhythm with no ST elevation or depression. No abnormal intervals or axis deviation. (BRIONNA ROOT MD) Departure Communication Progress Notes 0830--CALLED [facility], THEY WILL CALL BACK 0848--RUFINO FROM [facility] HAS DISCUSSED WITH TEE AND PT IS STILL #12 ON LIST TO BE ADMITTED, AND NO OTHER FACILITIES ARE AN OPTION. 0850--SPOKE WITH DR. HARLEY, AND DISCUSSED THE ABOVE, SHE ACCEPTS PT FOR ADMIT. (VLADIMIR CAMARA DO) Impression Impression: Primary Impression: Suicidal ideation Additional Impressions: Agitation Hypertension Qualified Codes: I10 - Essential (primary) hypertension Urinary tract infection Qualified Codes: N39.0 - Urinary tract infection, site not specified Disposition: ADMITTED INPATIENT Condition: Stable Admissions Decision to Admit Reason: Admit from ER (General) Decision to Admit/Date: Dec 18, 2016 Time/Decision to Admit Time: 08:50 (VLADIMIR CAMAAR DO) Departure-Patient Inst. Referrals: ELVIA RUIZ DO (PCP) Primary Care Physician EDUARDO GRUBER (Family) Primary Care Physician Scripts Nitrofurantoin Monohyd/M-Cryst (Macrobid 100 mg Capsule) 100 Mg Capsule 1 TAB PO BID, #14 CAP Prov: MANI THORNTON DO 12/21/16 Levothyroxine Sodium (Synthroid) 50 Mcg Tablet 50 MCG PO DAILY@0630 for 30 Days, TAB Prov: MANI THORNTON DO 12/21/16 BRIONNA ROOT MD Dec 18, 2016 03:55 VLADIMIR CAMARA DO Dec 18, 2016 08:09
[2016-12-18] MEDS ORDERED: NITROFURANTOIN 100 MG (MACROBID) CAPSULE PO ONE (04:30)
[2016-12-18 10:45] VITALS: BP 136/86
--- NOTE | 2016-12-18 11:07 | History & Physicial (CHS) ---
HPI History of Present Illness: 56 yo F that presented to ER by police with SI. States that she is hearing voices that are telling her to hurt herself. She had a plan to get a gun and shoot herself. States that she started hearing voices 2 days ago. Denies ever hearing voices before. States that she has been thinking about her past. She did not want to elaborate. Denies ever being on medications for mood or anxiety. Denies any previous psych admissions. Source: patient, old records Exam Limitations: no limitations Date seen by provider: Dec 18, 2016 Time Seen by Provider: 11:07 Attending Physician Brionna Sauceda MD PCP Denisa Ochoa DO Consult Date of Admission Dec 18, 2016 at 08:50 Home Medications Home Medications Reviewed patient Home Medication Reconciliation Form Allergies Coded Allergies: Penicillins (Verified Allergy, Unknown, 08/20/15) tuberculin, purified protein deriva (Verified Adverse Reaction, Mild, 08/19) YIH-Yagedi-Dfrjjb Hx Patient Social History Alcohol Use: Denies Use Recreational Drug Use: No Smoking Status: Never a Smoker Recent Foreign Travel: No Contact w/other who traveled: No Recent Hopitalizations: No Recent Infectious Disease Expo: No Immunizations Up To Date Tetanus Booster (TDap): Unknown Date of Pneumonia Vaccine: Feb 01, 2012 Date of Influenza Vaccine: Feb 01, 2016 Past Medical History COPD Family Medical History Significant Family History: No Pertinent Family Hx Family History: Congenital heart disease G8 SISTER (HOLE IN HEART ) Neoplasm 19 MOTHER (STOMACH ) G8 BROTHER (STOMACH) Review of Systems (CHC) Constitutional: no symptoms reported, No dizziness, No fever EENTM: no symptoms reported Respiratory: no symptoms reported, No cough, No dyspnea on exertion, No short of breath Cardiovascular: no symptoms reported, No chest pain, No edema, No palpitations Gastrointestinal: no symptoms reported, No abdominal pain, No constipation, No diarrhea, No nausea, No vomiting Genitourinary: no symptoms reported, No dysuria, No frequency, No hematuria Musculoskeletal: no symptoms reported, No back pain, No joint pain, No muscle pain Skin: No lesions, No rash Psychiatric/Neurological: Other (SI, Anxiety) Reviewed Test Results Reviewed Test Results Lab Laboratory Tests Test 12/18/16 02:37 12/18/16 03:09 Range/Units Urine Color YELLOW Urine Clarity VERY CLOUDY H Urine pH 5 5-9 Urine Specific [place] 1.025 H 1.016-1.022 Urine Protein 1+ H NEGATIVE Urine Glucose (UA) NEGATIVE NEGATIVE Urine Ketones NEGATIVE NEGATIVE Urine Nitrite NEGATIVE NEGATIVE Urine Bilirubin NEGATIVE NEGATIVE Urine Urobilinogen NORMAL NORMAL MG/DL Urine Leukocyte Esterase 2+ H NEGATIVE Urine RBC (Auto) 1+ H NEGATIVE Urine RBC 2-5 H /HPF Urine WBC 2-5 /HPF Urine Squamous Epithelial Cells 2-5 /HPF Urine Crystals NONE /LPF Urine Bacteria LARGE H /HPF Urine Casts NONE /LPF Urine Mucus SMALL H /LPF Urine Culture Indicated YES Urine Opiates Screen NEGATIVE NEGATIVE Urine Oxycodone Screen NEGATIVE NEGATIVE Urine Methadone Screen NEGATIVE NEGATIVE Urine Propoxyphene Screen NEGATIVE NEGATIVE Urine Barbiturates Screen NEGATIVE NEGATIVE Ur Tricyclic Antidepressants Screen NEGATIVE NEGATIVE Urine Phencyclidine Screen NEGATIVE NEGATIVE Urine Amphetamines Screen NEGATIVE NEGATIVE Urine Methamphetamines Screen NEGATIVE NEGATIVE Urine Benzodiazepines Screen NEGATIVE NEGATIVE Urine Cocaine Screen NEGATIVE NEGATIVE Urine Cannabinoids Screen NEGATIVE NEGATIVE White Blood Count 10.4 4.3-11.0 10^3/uL Red Blood Count 4.16 L 4.35-5.85 10^6/uL Hemoglobin 12.6 11.5-16.0 G/DL Hematocrit 37 35-52 % Mean Corpuscular Volume 90 80-99 FL Mean Corpuscular Hemoglobin 30 25-34 PG Mean Corpuscular Hemoglobin Concent 34 32-36 G/DL Red Cell Distribution Width 13.6 10.0-14.5 % Platelet Count 272 130-400 10^3/uL Mean Platelet Volume 8.5 7.4-10.4 FL Neutrophils (%) (Auto) 65 42-75 % Lymphocytes (%) (Auto) 25 12-44 % Monocytes (%) (Auto) 7 0-12 % Eosinophils (%) (Auto) 2 0-10 % Basophils (%) (Auto) 1 0-10 % Neutrophils # (Auto) 6.8 1.8-7.8 X 10^3 Lymphocytes # (Auto) 2.6 1.0-4.0 X 10^3 Monocytes # (Auto) 0.7 0.0-1.0 X 10^3 Eosinophils # (Auto) 0.2 0.0-0.3 10^3/uL Basophils # (Auto) 0.1 0.0-0.1 10^3/uL Sodium Level 141 135-145 MMOL/L Potassium Level 4.0 3.6-5.0 MMOL/L Chloride Level 106 98-107 MMOL/L Carbon Dioxide Level 16 L 21-32 MMOL/L Anion Gap 19 H 5-14 MMOL/L Blood Urea Nitrogen 14 7-18 MG/DL Creatinine 0.73 0.60-1.30 MG/DL Estimat Glomerular Filtration Rate > 60 BUN/Creatinine Ratio 19 Glucose Level 103 70-105 MG/DL Calcium Level 9.6 8.5-10.1 MG/DL Total Bilirubin 0.3 0.1-1.0 MG/DL Aspartate Amino Transf (AST/SGOT) 19 5-34 U/L Alanine Aminotransferase (ALT/SGPT) 23 0-55 U/L Alkaline Phosphatase 62 40-136 U/L Total Protein 8.2 6.4-8.2 GM/DL Albumin 4.4 3.2-4.5 GM/DL Free Thyroxine 0.96 0.70-1.48 NG/DL TSH [place] Testing 6.06 H 0.35-4.94 UIU/ML Serum Alcohol 41 H <10 MG/DL Physical Exam-([facility]) Physical Exam Vital Signs VS - Last 72 Hours, by Label 12/18/16 02:31 Temp 97.2 Pulse 99 Resp 20 B/P (MAP) 172/115 Pulse Ox 97 O2 Delivery Room Air Capillary Refill : Less Than 3 Seconds General Appearance: no apparent distress HEENT: PERRL/EOMI, normal ENT inspection Neck: non-tender, full range of motion, supple Respiratory: chest non-tender, lungs clear, normal breath sounds, no respiratory distress Cardiovascular: normal peripheral pulses, regular rate, rhythm, no edema, no murmur Gastrointestinal: normal bowel sounds, non tender, soft Extremities: normal range of motion, non-tender, normal inspection, no pedal edema, no calf tenderness, normal capillary refill 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, no motor/sensory deficits, alert, oriented x 3, other (anxious and hearing voices) Skin: normal color, warm/dry Lymphatic: no adenopathy Assessment/Plan Assessment/Plan Plan 56 yo F admitted for suicidal ideations Plan Suicidal Ideations with auditory hallucinations - 1:1 suicide precautions - Ativan PRN - Accepted to Inpatient psych in [place], waiting on bed COPD - Duonebs PRN Elevated TSH with normal T4 - Will follow as outpatient FEN: Reg diet DVT PPX: ambulation SCDs Dispo: Admit for obs until bed available Diagnosis/Problems: Copy Copies To 1: BRIONNA SAUCEDA MD, HOLLY R MD Dec 18, 2016 11:06
--- NOTE | 2016-12-18 11:21 | Discharge Instructions ---
Discharge Critical access hospital Discharge Medications Continued Medications: Albuterol Sulfate (Proair Hfa) 8.5 Gm Hfa.aer.ad 2 PUFF INH Q6H PRN for SHORTNESS OF BREATH, INHALER Cetirizine HCl (Cetirizine HCl) 10 Mg Tablet 10 MG PO DAILY, TAB Fluticasone Propionate (Fluticasone Propionate) 16 Gm [place].susp 1 SPRAY NS BID, EA Montelukast Sodium (Montelukast Sodium) 10 Mg Tablet 10 MG PO HS, TAB Omeprazole (Omeprazole) 40 Mg Capsule.dr 40 MG PO DAILY, CAP Propranolol HCl (Propranolol HCl) 40 Mg Tablet 40 MG PO BID, TAB Discontinued Medications: Amitriptyline HCl (Amitriptyline HCl) 25 Mg Tablet 75 MG PO HS, TAB TAKES 3 (25MG) TABLETS Meclizine HCl (Meclizine HCl) 25 Mg Tablet 25 MG PO QID PRN for NAUSEA/DIZZINESS, TAB Naproxen (Naproxen) 500 Mg Tablet 500 MG PO BID, TAB Ranitidine HCl (Ranitidine HCl) 150 Mg Tablet 150 MG PO BID, TAB Patient Instructions Goal/Follow Up Appt: You will need to follow up with your PCP after your get discharged from inpatient psych Activity & Diet Discharge Diet: No Restrictions Copy Copies To 1: BRIONAN HARLEY MD, HOLLY R MD Dec 18, 2016 11:21
[2016-12-18] MEDS: LORazepam 1 MG (ATIVAN) TAB PO PRN (11:22)
[2016-12-18] MEDS ORDERED: SERT50TA9 PO (13:45)
[2016-12-18] MEDS ORDERED: DICY20TA10 PO (13:45)
[2016-12-18] MEDS ORDERED: PROP60TA17 PO (13:45)
[2016-12-18 16:00] VITALS: BP 134/85
[2016-12-18 19:39] VITALS: BP 116/76
[2016-12-18] MEDS: ONDANSETRON 4 MG (ZOFRAN) ORAL DISSOLVE TAB PO PRN (20:55)
[2016-12-18] MEDS: MELATONIN 3 MG TABLET PO SCH (22:22)
[2016-12-19] VITALS (8 sets, daily range): BP systolic 95–158; BP diastolic 59–113
[2016-12-19] MEDS ORDERED: IBUPROFEN 600 MG (MOTRIN) TAB PO PRN (09:15)
[2016-12-19] MEDS: RT-ALBUTEROL/IPRATROPIUM 3 ML (DUONEB) VIAL INH PRN ×2 (12:43→18:56)
--- NOTE | 2016-12-19 15:02 | Progress Note (SOAP) ---
Subjective Subjective/Events-last exam Patient states that she is doing better this AM. States that she no longer wants to go to inpatient psych. Denies thoughts of wanting to harm herself. States that she does not have access to a gun. States that she lives alone and does not have anyone to watch her. Denies hearing any voices today. Review of Systems Date Seen by Provider: Dec 19, 2016 Time Seen by Provider: 12:45 HEENT: Head Aches Pulmonary: No Dyspnea, No Cough Cardiovascular: No: Chest Pain Objective Exam Last Set of Vital Signs Vital Signs Date Time Temp Pulse Resp B/P (MAP) Pulse Ox O2 Delivery O2 Flow Rate FiO2 12/19/16 12:50 98.5 85 20 126/85 95 Room Air Capillary Refill : Less Than 3 Seconds I&O Intake and Output 12/20/16 00:00 Intake Total 1030 ml Output Total 351 ml Balance 679 ml Intake Oral 1030 ml Output Urine Total 351 ml General: Alert, Oriented X3, Cooperative Lungs: Clear to Auscultation, Normal Air Movement Heart: Regular Rate, No Murmurs Neuro: Normal Speech, Sensation Intact, Cranial Nerves 3-12 NL Results/Procedures Lab Microbiology 12/18/16 Urine Culture - Preliminary, Resulted Gram Negative Anthony Gram Negative Anthony#2 Lactococcus Species Assessment/Plan Assessment/Plan Plan 56 yo F admitted for suicidal ideations Plan Suicidal Ideations with auditory hallucinations: Resolved this AM per patient - 1:1 suicide precautions - Ativan PRN - Accepted to Inpatient psych in [place], waiting on bed, Will contact [facility] to reevaluate patient COPD - Duonebs PRN Elevated TSH with normal T4 - Will follow as outpatient FEN: Reg diet DVT PPX: ambulation SCDs Dispo: Continue admission Diagnosis/Problems: Clinical Quality Measures DVT/VTE Risk/Contraindication: Risk Factor Score Per Nursin RFS Level Per Nursing on Admit: 2=Moderate BRIONNA HARLEY MD Dec 19, 2016 15:02
[2016-12-19] MEDS: MELATONIN 3 MG TABLET PO SCH (20:18)
[2016-12-19] MEDS: LORazepam 1 MG (ATIVAN) TAB PO PRN (20:48)
[2016-12-19] MEDS ORDERED: ASPIRIN 325 MG (5 GR) TABLET PO ONE (21:00)
[2016-12-20 09:30] VITALS: BP 125/84
--- NOTE | 2016-12-20 12:54 | Progress Note (SOAP) ---
Subjective Subjective/Events-last exam Patient states that she feels better today. Denies any thoughts of wanting to hurt herself or anyone else. States that she would like to go home, however she is still on a psych hold. Denies any access to weapons or guns at home. States that she lives at home with her and 3 friends and states that someone is always home. States that she feels safe at home. Nurse called [facility] and they are planning on coming to re evaluate patient tomorrow. Patient is currently 4th on the list. At this time they still recommend that the patient go to inpatient psych if bed becomes available. Review of Systems Date Seen by Provider: Dec 20, 2016 Time Seen by Provider: 11:00 Pulmonary: No Dyspnea, No Cough Cardiovascular: No: Chest Pain, Palpitations Gastrointestinal: No: Nausea, Vomiting, Abdominal Pain Genitourinary: No Dysuria, No Frequency Objective Exam Last Set of Vital Signs Vital Signs Date Time Temp Pulse Resp B/P (MAP) Pulse Ox O2 Delivery O2 Flow Rate FiO2 12/20/16 09:30 98.5 88 18 125/84 91 Room Air Capillary Refill : Less Than 3 SecondsLess Than 3 Seconds I&O Intake and Output 12/21/16 00:00 Intake Total 400 ml Output Total 400 ml Balance 0 ml Intake Oral 400 ml Output Urine Total 400 ml # Voids 1 General: Alert, Oriented X3, Cooperative, No Acute Distress Lungs: Clear to Auscultation, Normal Air Movement Heart: Regular Rate, No Murmurs Abdomen: Normal Bowel Sounds, Soft, No Tenderness Psych/Mental Status: Mental Status NL Results/Procedures Lab Microbiology 12/18/16 MRSA Screen - Final, Complete MRSA not isolated 12/18/16 Urine Culture - Final, Complete Escherichia Coli Lactococcus Species Assessment/Plan Assessment/Plan Plan 56 yo F admitted for suicidal ideations Plan Suicidal Ideations with auditory hallucinations: Resolved per patient - 1:1 suicide precautions - Ativan PRN - Accepted to Inpatient psych in [place], waiting on bed - [facility] will evaluate patient tomorrow if bed does not open up today Atypical chest pain - Normal ECG - ASA - likely 2/2 anxiety, resolved with redirection and Ativan COPD - Duonebs PRN Elevated TSH with normal T4 - Will follow as outpatient FEN: Reg diet DVT PPX: ambulation SCDs Dispo: Continue admission Diagnosis/Problems: Clinical Quality Measures DVT/VTE Risk/Contraindication: Risk Factor Score Per Nursin RFS Level Per Nursing on Admit: 2=Moderate BRIONNA HARLEY MD Dec 20, 2016 12:54
[2016-12-20 14:00] VITALS: BP 133/85
[2016-12-20 15:34] VITALS: BP 122/88
[2016-12-20] MEDS: MELATONIN 3 MG TABLET PO SCH (21:31)
[2016-12-20] MEDS: ONDANSETRON 4 MG (ZOFRAN) ORAL DISSOLVE TAB PO PRN (21:31)
[2016-12-20 23:25] VITALS: BP 124/82
[2016-12-21 08:45] VITALS: BP 137/89
[2016-12-21] MEDS ORDERED: LEVOTHYROXINE 50 MCG (LEVOTHROID) TAB PO SCH (09:00)
[2016-12-21] MEDS ORDERED: NITROFURANTOIN 100 MG (MACROBID) CAPSULE PO SCH (09:00)
[2016-12-21] MEDS ORDERED: NITR-65 PO (09:48)
[2016-12-21] MEDS ORDERED: LEVO50TA PO (09:48)
--- NOTE | 2016-12-21 09:59 | Discharge Summary-Hospitalist ---
Diagnosis/Chief Complaint Date of Admission Dec 18, 2016 at 08:50 Date of Discharge Discharge Date: Dec 21, 2016 Discharge Diagnosis Hallucinations causing suicidal ideation New onset hypothyroidism Acute UTI mild Discharge Summary Discharge Physical Examination Allergies: Coded Allergies: Penicillins (Verified Allergy, Unknown, 08/20/15) tuberculin, purified protein deriva (Verified Adverse Reaction, Mild, 08/19) Vitals & I&Os Vital Signs Date Time Temp Pulse Resp B/P (MAP) Pulse Ox O2 Delivery O2 Flow Rate FiO2 12/21/16 08:45 98.8 85 20 137/89 96 Room Air Hospital Course Pt was admitted for psych hold until [place] was able to accept the patient. Pt was medically stable and was placed on low dose Synthroid and abx for UTI at day of DC after I spoke to psychiatrist and she was accepted in transfer. Labs (last 24 hrs) Laboratory Tests 12/21/16 10:05: Urine Test NEGATIVE Microbiology 12/18/16 MRSA Screen - Final, Complete MRSA not isolated 12/18/16 Urine Culture - Final, Complete Escherichia Coli Lactococcus Species Discharge Home Medications: Active Scripts Active Macrobid 100 mg Capsule (Nitrofurantoin Monohyd/M-Cryst) 100 Mg Capsule 1 Tab PO BID Synthroid (Levothyroxine Sodium) 50 Mcg Tablet 50 Mcg PO DAILY@0630 30 Days Reported Propranolol HCl 60 Mg Tablet 60 Mg PO BID Sertraline HCl 50 Mg Tablet 50 Mg PO DAILY Dicyclomine HCl 20 Mg Tablet 20 Mg PO BID Montelukast Sodium 10 Mg Tablet 10 Mg PO HS Proair Hfa (Albuterol Sulfate) 8.5 Gm Hfa.aer.ad 2 Puff INH Q6H PRN Cetirizine HCl 10 Mg Tablet 10 Mg PO DAILY Instructions to patient/family Please see electonic discharge instructions given to patient. Clinical Quality Measures DVT/VTE Risk/Contraindication: Risk Factor Score Per Nursin RFS Level Per Nursing on Admit: 2=Moderate MANI THORNTON DO Dec 21, 2016 09:59
== END 2016-12-21 09:58 ==
LOC: EDUNIT# 02:32 → ER 02:33 → ICU 08:50 → UNDOADMOB 08:50 → ICU 10:17 → 4TH 12-19 16:51 → ICU 12-19 16:51 → UNDODISOB 12-21 11:15
PROVIDERS: ADMIT Family Medicine; ATTEND Family Medicine
DX: R45.851 Suicidal ideations (principal); R44.0 Auditory hallucinations; I10 Essential (primary) hypertension; N39.0 Urinary tract infection, site not specified; E03.9 Hypothyroidism, unspecified; J44.9 Chronic obstructive pulmonary disease, unspecified; E11.9 Type 2 diabetes mellitus without complications; Z79.899 Other long term (current) drug therapy
CPT/HCPCS: 36415; 80053; 80306; 80320; 81000; 84439; 84443; 84703; 85025; 87077; 87081; 87088; 87186; 93005; 94640; 94760; G0378

== ENCOUNTER 2017-05-14 08:06 | Emergency (ER) | payer MEDICAID ==
[~2017-05-14] VITALS: Ht 157.5 cm; Wt 90.7 kg
[~2017-05-14 08:06] MED LIST changes: +LEVO50TA PO; -NAPR500T3 PO; +NAPR500T4 PO; +NITR-65 PO; +PROP60TA17 PO; +SERT50TA9 PO
--- OUTSIDE RECORDS SUMMARY | 2017-05-14 08:12 | XMS REPORT ---
Author Author EDUARDO GRUBER [facility] Address [address] [place] [address] Care Team Providers Care Medical Reimbursement Specialist Name Role Phone EDUARDO GRUBER Unavailable PROBLEMS Type Condition ICD9-CM Code [id number] Code Onset Dates Condition Status SNOMED Code Problem Asthma 493.90 Active 861554987 Problem Headache R51 Active 01413619 Problem Vaginitis N76.0 Active 97624146 Problem Allergic rhinitis, unspecified allergic rhinitis type J30.9 Active 01699799 Problem Unspecified asthma, uncomplicated J45.909 Active 94184772 Problem Irritable bowel syndrome without diarrhea K58.9 Active 47138322 Problem Hypoxemia R09.02 Active 921764863 Problem Hypertension I10 Active 06842962 Problem Essential hypertension I10 Active 36549118 ALLERGIES Substance Reaction Event Type Date Status Penicillin V Potassium Unknown Drug Allergy Jun, Active Hydrocodone-Acetaminophen Unknown Drug Allergy Jun, Active Cyclobenzaprine HCl Unknown Drug Allergy Jun, Active Cipro Unknown Drug Allergy Jun, Active Tramadol Unknown Drug Allergy Jun, Active SOCIAL HISTORY Never Assessed PLAN OF CARE Activity Details Follow Up prn Reason: VITAL SIGNS Height 62 in 2016-06-29 Weight 188.3 lbs 2016-06-29 Temperature 98.6 degrees Fahrenheit 2016-06-29 Heart Rate 72 bpm 2016-06-29 Respiratory Rate 18 2016-06-29 BMI 34.44 kg/m2 2016-06-29 Blood pressure systolic 152 mmHg 2016-06-29 Blood pressure diastolic 96 mmHg 2016-06-29 MEDICATIONS Medication Instructions Dosage Frequency Start Date End Date Duration Status ProAir HFA 108 (90 Base) MCG/ACT INHALE TWO PUFFS BY MOUTH EVERY 6 HOURS NEEDED FOR SHORTNESS OF BREATH OR COUGH Active Silvadene 1 % Externally twice a day 1 application to affected area 12h 13 Jan, 2016 Active Fluticasone Propionate 50 MCG/ACT INSTILL ONE SPRAY INTO EACH NOSTRIL TWICE DAILY 30 Active Clindamycin HCl 300 MG Orally every 6 hrs 1 capsule 6h Active Ranitidine HCl 150 MG TAKE 1 TABLET BY MOUTH TWICE DAILY 30 Active Meclizine HCl 25 MG TAKE 1 TABLET BY MOUTH FOUR TIMES DAILY NEEDED 15 15 days Active Bentyl 20 mg Orally 2 times a day 1 tablet 12h August, 90 day(s) Active Omeprazole 40 mg Orally Once a day 1 capsule 24h 90 Active Singulair 10 MG Orally Once a day 1 tablet in the evening 24h 90 Active Naproxen 500 MG TAKE 1 TABLET BY MOUTH TWICE DAILY WITH FOOD 30 90 Active Amitriptyline HCl 25 MG TAKE 3 TABLETS BY MOUTH AT BEDTIME NEEDED FOR SLEEP OR PAIN 30 30 Active Ondansetron 4 MG Orally every 8 hrs 1 tablet on the tongue and allow to dissolve 8h Active Cetirizine HCl 10 MG TAKE 1 TABLET BY MOUTH DAILY FOR ITCHING 30 Active Propranolol HCl 40 MG Orally Twice a day 1 tablet 12h 15 Jun, 2016 90 days Active RESULTS No Results PROCEDURES No Known procedures IMMUNIZATIONS No Known Immunizations MEDICAL (GENERAL) HISTORY Type Description Date Medical History asthma Medical History peptic ulcer disease Medical History back pain Medical History headache Medical History seizures; has been years since pt has had one Medical History TB in 1995 (?) Surgical History appendectomy Surgical History hysterectomy Surgical History section Surgical History cholecystectomy Hospitalization History 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 Hospitalization History Hospitalization History appendectomy Hospitalization History Intractable Vertigo, Hypertensive Urgency (pt was in observation) 08/20/15 Hospitalization History RLQ pain, [place], UTI, viral gastroenteritis 01/06/16 Hospitalization History Suicidal ideation with auditory hallucinations-[facility]
--- OUTSIDE RECORDS SUMMARY | 2017-05-14 08:12 | XMS REPORT ---
Author Author EDUARDO GRUBER Organization [facility] Address [address] [place] [address] Care Team Providers Care Travel Registered Nurse Nicu Name Role Phone EDUARDO GRUBER Unavailable PROBLEMS Type Condition ICD9-CM Code OLV34-VF Code Onset Dates Condition Status SNOMED Code Problem Asthma 493.90 Active 287069060 Problem Headache R51 Active 63638270 Problem Vaginitis N76.0 Active 12116425 Problem Allergic rhinitis, unspecified allergic rhinitis type J30.9 Active 53406065 Problem Unspecified asthma, uncomplicated J45.909 Active 99062227 Problem Irritable bowel syndrome without diarrhea K58.9 Active 32893629 Problem Hypoxemia R09.02 Active 255062679 Problem Hypertension I10 Active 00427455 Problem Essential hypertension I10 Active 13529017 ALLERGIES No Information SOCIAL HISTORY Never Assessed PLAN OF CARE VITAL SIGNS MEDICATIONS Medication Instructions Dosage Frequency Start Date End Date Duration Status Bentyl 20 MG Orally 2 times a day 1 tablet 12h August, 90 day(s) Active Propranolol HCl 40 MG Orally Twice a day 1 tablet 12h Jun, 90 days Active RESULTS No Results PROCEDURES [...] 01/06/16 Hospitalization History Suicidal ideation with auditory hallucinations-[facility]
--- OUTSIDE RECORDS SUMMARY | 2017-05-14 08:12 | XMS REPORT ---
Author Author EDUARDO GRUBER [facility] Address [address] [place] [address] Care Team Providers Care Faculty Neuropsychologist Name Role Phone EDUARDO GRUBER Unavailable PROBLEMS Type Condition ICD9-CM Code QCH75-NL Code Onset Dates Condition Status SNOMED Code Problem Vaginitis N76.0 Active 71769391 Problem Hypoxemia R09.02 Active 137453866 Problem Headache R51 Active 87670777 Problem Asthma 493.90 Active 427748446 Problem Psychosis, unspecified psychosis type F29 Active 88317524 Problem Allergic rhinitis, unspecified allergic rhinitis type J30.9 Active 34030120 Problem Essential hypertension I10 Active 85169020 Problem Irritable bowel syndrome without diarrhea K58.9 Active 34424878 Problem Unspecified asthma, uncomplicated J45.909 Active 54434295 Problem Hypertension I10 Active 11737628 ALLERGIES Substance Reaction Event Type Date Status Penicillin V Potassium Unknown Drug Allergy Aug, Active Hydrocodone-Acetaminophen Unknown Drug Allergy Aug, Active Cyclobenzaprine HCl Unknown Drug Allergy Aug, Active Cipro Unknown Drug Allergy Aug, Active Tramadol Unknown Drug Allergy Aug, Active SOCIAL HISTORY Never Assessed PLAN OF CARE Activity Details Follow Up 4 Weeks Reason:abd pain VITAL SIGNS Height 62 in 2016-08-12 Weight 193.0 lbs 2016-08-12 Temperature 98.3 degrees Fahrenheit 2016-08-12 Heart Rate 68 bpm 2016-08-12 Respiratory Rate 20 2016-08-12 BMI 35.30 kg/m2 2016-08-12 Blood pressure systolic 160 mmHg 2016-08-12 Blood pressure diastolic 110 mmHg 2016-08-12 MEDICATIONS Medication Instructions Dosage Frequency Start Date End Date Duration Status Zoloft 50 mg Orally Once a day 1/2 tablet x 4 days then 1 tab 24h Aug, 30 day(s) Active ProAir HFA 108 (90 Base) MCG/ACT INHALE TWO PUFFS BY MOUTH EVERY 6 HOURS NEEDED FOR SHORTNESS OF BREATH OR COUGH Active Fluticasone Propionate 50 MCG/ACT INSTILL ONE SPRAY INTO EACH NOSTRIL TWICE DAILY 30 Active Propranolol HCl 60 MG Orally Twice a day 1 tablet 12h 15 Jun, 2016 30 days Active Singulair 10 MG Orally Once a day 1 tablet in the evening 24h 90 Active Cetirizine HCl 10 MG TAKE 1 TABLET BY MOUTH DAILY FOR ITCHING 30 Active Amitriptyline HCl 25 MG TAKE 3 TABLETS BY MOUTH AT BEDTIME NEEDED FOR SLEEP OR PAIN 30 30 Active Naproxen 500 MG TAKE 1 TABLET BY MOUTH TWICE DAILY WITH FOOD 30 90 Active RESULTS No Results PROCEDURES No Known [...] 01/06/16 Hospitalization History Suicidal ideation with auditory hallucinations-[facility] Hospitalization History [place] in [place] following her stay 12/2016
--- OUTSIDE RECORDS SUMMARY | 2017-05-14 08:12 | XMS REPORT ---
Author Author EDUARDO GRUBER Organization [facility] Address [address] [place] [address] Care Team Providers Care Underground Electrician Name Role Phone EDUARDO GRUBER Unavailable PROBLEMS Type Condition ICD9-CM Code KEQ45-QI Code Onset Dates Condition Status SNOMED Code Problem Asthma 493.90 Active 770285857 Problem Headache R51 Active 75594895 Problem Vaginitis N76.0 Active 53325274 Problem Allergic rhinitis, unspecified allergic rhinitis type J30.9 Active 59074117 Problem Unspecified asthma, uncomplicated J45.909 Active 18464819 Problem Irritable bowel syndrome without diarrhea K58.9 Active 84802877 Problem Hypoxemia R09.02 Active 120956604 Problem Hypertension I10 Active 75933430 Problem Essential hypertension I10 Active 40118257 ALLERGIES No Information SOCIAL HISTORY Never Assessed PLAN OF CARE VITAL SIGNS MEDICATIONS Unknown Medications RESULTS No Results PROCEDURES No Known procedures [...] 01/06/16 Hospitalization History Suicidal ideation with auditory hallucinations-[facility]
--- OUTSIDE RECORDS SUMMARY | 2017-05-14 08:12 | XMS REPORT ---
Author Author EDUARDO GRUBER Organization [facility] Address [address] [place] [address] Care Team Providers Care Kersey Department Supervisor Name Role Phone EDUARDO GRUBER Unavailable PROBLEMS Type Condition ICD9-CM Code DVA07-AZ Code Onset Dates Condition Status SNOMED Code Problem Asthma 493.90 Active 910679419 Problem Headache R51 Active 65212454 Problem Vaginitis N76.0 Active 09935627 Problem Allergic rhinitis, unspecified allergic rhinitis type J30.9 Active 47061383 Problem Unspecified asthma, uncomplicated J45.909 Active 83663802 Problem Irritable bowel syndrome without diarrhea K58.9 Active 92639332 Problem Hypoxemia R09.02 Active 935585184 Problem Hypertension I10 Active 46069546 Problem Essential hypertension I10 Active 53233088 ALLERGIES No Information SOCIAL HISTORY Never Assessed [...] 01/06/16 Hospitalization History Suicidal ideation with auditory hallucinations-[facility]
--- OUTSIDE RECORDS SUMMARY | 2017-05-14 08:12 | XMS REPORT ---
Author Author EDUARDO GRUBER Organization [facility] Address [address] [place] [address] Care Team Providers Care Tool And Die Inspector Name Role Phone EDUARDO GRUBER Unavailable PROBLEMS Type Condition ICD9-CM Code TLQ53-EA Code Onset Dates Condition Status SNOMED Code Problem Vaginitis N76.0 Active 44357455 Problem Hypoxemia R09.02 Active 048055620 Problem Headache R51 Active 32504180 Problem Asthma 493.90 Active 675121768 Problem Psychosis, unspecified psychosis type F29 Active 36049951 Problem Allergic rhinitis, unspecified allergic rhinitis type J30.9 Active 63016730 Problem Essential hypertension I10 Active 89603801 Problem Irritable bowel syndrome without diarrhea K58.9 Active 28896504 Problem Unspecified asthma, uncomplicated J45.909 Active 69067260 Problem Hypertension I10 Active 47031005 ALLERGIES No Information SOCIAL HISTORY Never Assessed PLAN OF CARE VITAL SIGNS MEDICATIONS Medication Instructions Dosage Frequency Start Date End Date Duration Status Ranitidine HCl 150 MG Orally 2 times a day 1 tablet 12h 90 days Active RESULTS No Results PROCEDURES [...] 01/06/16 Hospitalization History Suicidal ideation with auditory hallucinations-[facility] Hospitalization History [place] was in [place] two [place] following her stay 12/2016
--- OUTSIDE RECORDS SUMMARY | 2017-05-14 08:12 | XMS REPORT ---
Author Author EDUARDO GRUBER [facility] Address [address] [place] [address] Care Team Providers Care Email Marketing Intern Name Role Phone EDUARDO GRUBER Unavailable PROBLEMS Type Condition ICD9-CM Code NAA19-CD Code Onset Dates Condition Status SNOMED Code Problem Vaginitis N76.0 Active 90266681 Problem Hypoxemia R09.02 Active 490430644 Problem Headache R51 Active 81748831 Problem Asthma 493.90 Active 911378631 Problem Psychosis, unspecified psychosis type F29 Active 14031835 Problem Allergic rhinitis, unspecified allergic rhinitis type J30.9 Active 25996879 Problem Essential hypertension I10 Active 50862632 Problem Irritable bowel syndrome without diarrhea K58.9 Active 77640959 Problem Unspecified asthma, uncomplicated J45.909 Active 85438638 Problem Hypertension I10 Active 48197071 ALLERGIES Substance Reaction Event Type Date Status Penicillin V Potassium Unknown Drug Allergy August, Active Hydrocodone-Acetaminophen Unknown Drug Allergy August, Active Cyclobenzaprine HCl Unknown Drug Allergy August, Active Cipro Unknown Drug Allergy August, Active Tramadol Unknown Drug Allergy August, Active SOCIAL HISTORY Never Assessed PLAN OF CARE Activity Details Follow Up prn Reason: VITAL SIGNS Height 62 in 2016-09-09 Weight 195 lbs 2016-09-09 Temperature 98.1 degrees Fahrenheit 2016-09-09 Heart Rate 74 bpm 2016-09-09 Respiratory Rate 18 2016-09-09 BMI 35.66 kg/m2 2016-09-09 Blood pressure systolic 152 mmHg 2016-09-09 Blood pressure diastolic 102 mmHg 2016-09-09 MEDICATIONS Medication Instructions Dosage Frequency Start Date End Date Duration Status Naproxen 500 MG TAKE 1 TABLET BY MOUTH TWICE DAILY WITH FOOD 30 90 Active Zoloft 50 mg Orally Once a day 1 tablet 24h 12 Aug, 2016 Active Propranolol HCl 60 MG Orally Twice a day 1 tablet 12h 15 Jun, 2016 30 days Active Cetirizine HCl 10 MG TAKE 1 TABLET BY MOUTH DAILY FOR ITCHING 30 Active Amitriptyline HCl 25 MG TAKE 3 TABLETS BY MOUTH AT BEDTIME NEEDED FOR SLEEP OR PAIN 30 30 Active Fluticasone Propionate 50 MCG/ACT INSTILL ONE SPRAY INTO EACH NOSTRIL TWICE DAILY 30 Active Singulair 10 MG Orally Once a day 1 tablet in the evening 24h 90 Active ProAir HFA 108 (90 Base) MCG/ACT INHALE TWO PUFFS BY MOUTH EVERY 6 HOURS NEEDED FOR SHORTNESS OF BREATH OR COUGH Active Meclizine HCl 12.5 MG Orally Once a day tablets as needed for dizziness 24h August, 30 day(s) Active RESULTS No Results PROCEDURES No Known [...] 01/06/16 Hospitalization History Suicidal ideation with auditory hallucinations-[facility] Hospitalization History [place] was [place] two [place] following her stay 12/2016
--- OUTSIDE RECORDS SUMMARY | 2017-05-14 08:12 | XMS REPORT ---
Author Author EDUARDO GRUBER Organization [facility] Address [address] [place] [address] Care Team Providers Care Senior Telecommunications Consultant Name Role Phone EDUARDO GRUBER Unavailable PROBLEMS Type Condition ICD9-CM Code DOW14-NP Code Onset Dates Condition Status SNOMED Code Problem Asthma 493.90 Active 198303941 Problem Headache R51 Active 19757686 Problem Vaginitis N76.0 Active 94813768 Problem Allergic rhinitis, unspecified allergic rhinitis type J30.9 Active 84819845 Problem Unspecified asthma, uncomplicated J45.909 Active 01880098 Problem Irritable bowel syndrome without diarrhea K58.9 Active 29434253 Problem Hypoxemia R09.02 Active 021237895 Problem Hypertension I10 Active 47163013 Problem Essential hypertension I10 Active 30131112 ALLERGIES No Information SOCIAL HISTORY Never Assessed PLAN OF CARE VITAL SIGNS MEDICATIONS Medication Instructions Dosage Frequency Start Date End Date Duration Status Propranolol HCl 40 MG Orally Twice a [...] 01/06/16 Hospitalization History Suicidal ideation with auditory hallucinations-[facility]
--- OUTSIDE RECORDS SUMMARY | 2017-05-14 08:13 | XMS REPORT ---
Author Author EDUARDO GRUBER Organization [facility] Address [address] [place] [address] Care Team Providers Care Developer Designer Name Role Phone EDUARDO GRUBER Unavailable PROBLEMS Type Condition ICD9-CM Code SPH86-LI Code Onset Dates Condition Status SNOMED Code Problem Asthma 493.90 Active 016453269 Problem Headache R51 Active 13541529 Problem Vaginitis N76.0 Active 82573915 Problem Allergic rhinitis, unspecified allergic rhinitis type J30.9 Active 45594055 Problem Unspecified asthma, uncomplicated J45.909 Active 30973640 Problem Irritable bowel syndrome without diarrhea K58.9 Active 70210309 Problem Hypoxemia R09.02 Active 665324839 Problem Hypertension I10 Active 50059573 Problem Essential hypertension I10 Active 57010596 ALLERGIES No Information SOCIAL HISTORY Never Assessed PLAN OF CARE VITAL SIGNS MEDICATIONS Medication Instructions Dosage Frequency Start Date End Date Duration Status Bentyl 20 mg Orally 2 times a day 1 tablet 12h August, 90 day(s) Active RESULTS No Results PROCEDURES No [...] 01/06/16 Hospitalization History Suicidal ideation with auditory hallucinations-[facility]
--- OUTSIDE RECORDS SUMMARY | 2017-05-14 08:13 | XMS REPORT ---
Author Author EDUARDO GRUBER Organization [facility] Address [address] [place] [address] Care Team Providers Care Clinical Immunologist Name Role Phone EDUARDO GRUBER Unavailable PROBLEMS Type Condition ICD9-CM Code DZV70-CW Code Onset Dates Condition Status SNOMED Code Problem Asthma 493.90 Active 704891162 Problem Headache R51 Active 73808526 Problem Vaginitis N76.0 Active 49516915 Problem Allergic rhinitis, unspecified allergic rhinitis type J30.9 Active 34370576 Problem Unspecified asthma, uncomplicated J45.909 Active 14698194 Problem Irritable bowel syndrome without diarrhea K58.9 Active 24799982 Problem Hypoxemia R09.02 Active 877385439 Problem Hypertension I10 Active 00231421 Problem Essential hypertension I10 Active 46687713 ALLERGIES No Information SOCIAL HISTORY Never Assessed [...] 01/06/16 Hospitalization History Suicidal ideation with auditory hallucinations-[facility]
--- OUTSIDE RECORDS SUMMARY | 2017-05-14 08:13 | XMS REPORT ---
Author Author EDUARDO GRUBER Organization [facility] Address [address] [place] [address] Care Team Providers Care Marble Cleaner Name Role Phone EDUARDO GRUBER Unavailable PROBLEMS Type Condition ICD9-CM Code DWQ86-SP Code Onset Dates Condition Status SNOMED Code Problem Asthma 493.90 Active 495144290 Problem Headache R51 Active 19336325 Problem Vaginitis N76.0 Active 34563647 Problem Allergic rhinitis, unspecified allergic rhinitis type J30.9 Active 87129518 Problem Unspecified asthma, uncomplicated J45.909 Active 45925836 Problem Irritable bowel syndrome without diarrhea K58.9 Active 72683778 Problem Hypoxemia R09.02 Active 653046210 Problem Hypertension I10 Active 81942042 Problem Essential hypertension I10 Active 47241997 ALLERGIES No Information SOCIAL HISTORY Never Assessed [...] 01/06/16 Hospitalization History Suicidal ideation with auditory hallucinations-[facility]
--- OUTSIDE RECORDS SUMMARY | 2017-05-14 08:13 | XMS REPORT ---
Author Author EDUARDO GRUBER Organization [facility] Address [address] [place] [address] Care Team Providers Care Woven Paper Hat Mender Name Role Phone EDUARDO GRUBER Unavailable PROBLEMS Type Condition ICD9-CM Code VGR40-YO Code Onset Dates Condition Status SNOMED Code Problem Asthma 493.90 Active 918043951 Problem Headache R51 Active 86158693 Problem Vaginitis N76.0 Active 53356132 Problem Allergic rhinitis, unspecified allergic rhinitis type J30.9 Active 90920936 Problem Unspecified asthma, uncomplicated J45.909 Active 22279250 Problem Irritable bowel syndrome without diarrhea K58.9 Active 37308934 Problem Hypoxemia R09.02 Active 726994052 Problem Hypertension I10 Active 51266706 Problem Essential hypertension I10 Active 31437028 ALLERGIES No Information SOCIAL HISTORY Never Assessed [...] 01/06/16 Hospitalization History Suicidal ideation with auditory hallucinations-[facility]
--- OUTSIDE RECORDS SUMMARY | 2017-05-14 08:15 | XMS REPORT | Continuity of Care Document ---
Author Author [facility] Address Unknown Phone Unavailable Allergies Active Description Code Type Severity Reaction Onset Reported/Identified Relationship to Patient Clinical Status Yes Penicillins Drug Allergy N/A N/A 06/11/2008 Yes Penicillins Drug Allergy 06/11/2008 Yes cyclobenzaprine Drug Allergy N/A N/A 11/13/2009 Yes cyclobenzaprine Drug Allergy 11/13/2009 Yes ciprofloxacin Drug Allergy N/ A N/A 02/04/2010 Yes ciprofloxacin Drug Allergy 02/04/2010 Yes hydrocodone-acetaminophen 5-325 mg tablet Drug Allergy N/A N/A 2012 Yes tramadol Drug Allergy N/A N/A 06/20/2013 Yes Penicillins [id number] Drug Allergy Unknown N/A 08/20/2015 Yes tuberculin, purified protein deriva [id number] Drug Allergy Mild N/A 2015 Yes tuberculin,purif.prot.deriv. [id number] Drug Allergy Mild N/A 08/20/2015 Medications There is no data. Problems Date Dx Coded Attending Type Code Diagnosis Diagnosed By 04/01/1599 TONI MA MD, Ot L97.111 NON-PRS CHRONIC ULCER OF RIGHT THIGH RIOS 04/01/1599 TONI MA MD, Ot R22.41 LOCALIZED SWELLING, MASS AND LUMP, RIGHT 05/01/2008 784.0 HEADACHE 05/01/2008 784.0 HEADACHE 05/01/2008 CHRISS MENDEZ MD 784.0 HEADACHE 05/01/2008 ELVIA RUIZ DO 784.0 HEADACHE 05/01/2008 EDUARDO GRUBER APRN S 784.0 HEADACHE 05/01/2008 DEXTER GRUBER APRNA S 784.0 HEADACHE 05/01/2008 JON GRUBER APRNNDA S 784.0 HEADACHE 05/01/2008 BENTLEY SARABIA APRN A 784.0 HEADACHE 05/01/2008 ALLYN TACKER OFF, EDUARDO S 784.0 HEADACHE 05/01/2008 ALLYN TACKER OFF, EDUARDO S 784.0 HEADACHE 05/01/2008 ALLYN TACKER OFF, EDUARDO S 784.0 HEADACHE 05/01/2008 ALLYN TACKER OFF, EDUARDO S 784.0 HEADACHE 05/01/2008 ALLYN TACKER OFF, EDUARDO S 784.0 HEADACHE 06/11/2008 719.47 Pain [...] Ankle And Foot 06/11/2008 BENTLEY SARABIA APRN A 719.47 Pain In Joint Involving Ankle And Foot 06/11/2008 ALLYN PRATT DEUARDO S 719.47 Pain In Joint Involving Ankle And Foot 06/11/2008 ALLYN PRATT EDUARDO S 719.47 Pain In Joint Involving Ankle And Foot 06/11/2008 JON GRUBER APRNNDA S 719.47 Pain In Joint Involving Ankle And Foot 06/11/2008 ALLYN PRATT EDUARDO S 719.47 Pain In Joint Involving Ankle And Foot 06/11/2008 ALLYN PRATT, EDUARDO S 719.47 Pain In Joint Involving Ankle And Foot 06/22/2008 110.1 Onychomycosis 06/22/2008 703.8 Other Specified Diseases Of Nail 06/22/2008 110.1 Onychomycosis 06/22/2008 703.8 Other Specified Diseases Of Nail 06/22/2008 CHRISS MENDEZ MD 110.1 Onychomycosis 06/22/2008 CHRISS MENDEZ MD 703.8 Other Specified Diseases Of Nail 06/22/2008 RUIZ DO, ELVIA K 110.1 Onychomycosis 06/22/2008 RUIZ DO, ELVIA K 703.8 Other Specified Diseases Of Nail 06/22/2008 ALLYN TACKER OFF, EDUARDO S 110.1 Onychomycosis 06/22/2008 ALLYN TACKER OFF, EDUARDO S 703.8 Other Specified Diseases Of Nail 06/22/2008 ALLYN TACKER OFF, EDUARDO S 110.1 Onychomycosis 06/22/2008 ALLYN TACKER OFF, EDUARDO S 703.8 Other Specified Diseases Of Nail 06/22/2008 ALLYN TACKER OFF, EDUARDO S 110.1 Onychomycosis 06/22/2008 ALLYN TACKER OFF, EDUARDO S 703.8 Other Specified Diseases Of Nail 06/22/2008 NO TACKER OFF, BENTLEY A 110.1 Onychomycosis 06/22/2008 NO TACKER OFF, BENTLEY A 703.8 Other Specified Diseases Of Nail 06/22/2008 ALLYN TACKER OFF, EDUARDO S 110.1 Onychomycosis 06/22/2008 ALLYN TACKER OFF, EDUARDO S 703.8 Other Specified Diseases Of Nail 06/22/2008 ALLYN TACKER OFF, EDUARDO S 110.1 Onychomycosis 06/22/2008 ALLYN TACKER OFF, EDUARDO S 703.8 Other Specified Diseases Of Nail 06/22/2008 ALLYN TACKER OFF, EDUARDO S 110.1 Onychomycosis 06/22/2008 ALLYN TACKER OFF, EDUARDO S 703.8 Other Specified Diseases Of Nail 06/22/2008 ALLYN TACKER OFF, EDUARDO S 110.1 Onychomycosis 06/22/2008 ALLYN TACKER OFF, EDUARDO S 703.8 Other Specified Diseases Of Nail 06/22/2008 ALLYN TACKER OFF, EDUARDO S 110.1 Onychomycosis 06/22/2008 ALLYN TACKER OFF, EDUARDO S 703.8 Other Specified Diseases Of Nail 09/28/2008 110.4 Tinea Pedis 09/28/2008 703.0 Nail Ingrown 09/28/2008 110.4 Tinea Pedis 09/28/2008 703.0 Nail Ingrown 09/28/2008 CHRISS MENDEZ MD 110.4 Tinea Pedis 09/28/2008 CHRISS MENDEZ MD 703.0 Nail Ingrown 09/28/2008 RUIZ DO, ELVIA K 110.4 Tinea Pedis 09/28/2008 RUIZ DO, ELVIA K 703.0 Nail Ingrown 09/28/2008 ALLYN TACKER OFF, EDUARDO S 110.4 Tinea Pedis 09/28/2008 ALLYN TACKER OFF, EDUARDO S 703.0 Nail Ingrown 09/28/2008 ALLYN TACKER OFF, EDUARDO S 110.4 Tinea Pedis 09/28/2008 ALYLN TACKER OFF, EDUARDO S 703.0 Nail Ingrown 09/28/2008 ALLYN TACKER OFF, EDUARDO S 110.4 Tinea Pedis 09/28/2008 ALLYN TACKER OFF, EDUARDO S 703.0 Nail Ingrown 09/28/2008 NO TACKER OFF, BENTLEY A 110.4 Tinea Pedis 09/28/2008 NO TACKER OFF, BENTLEY A 703.0 Nail Ingrown 09/28/2008 ALLYN TACKER OFF, EDUARDO S 110.4 Tinea Pedis 09/28/2008 ALLYN TACKER OFF, EDUARDO S 703.0 Nail Ingrown 09/28/2008 ALLYN TACKER OFF, EDUARDO S 110.4 Tinea Pedis 09/28/2008 ALLYN TACKER OFF, EDUARDO S 703.0 Nail Ingrown 09/28/2008 ALLYN TACKER OFF, EDUARDO S 110.4 Tinea Pedis 09/28/2008 ALLYN TACKER OFF, EDUARDO S 703.0 Nail Ingrown 09/28/2008 ALLYN TACKER OFF, EDUARDO S 110.4 Tinea Pedis 09/28/2008 ALLYN TACKER OFF, EDUARDO S 703.0 Nail Ingrown 09/28/2008 ALLYN TACKER OFF, EDUARDO S 110.4 Tinea Pedis 09/28/2008 ALLYN TACKER OFF, EDUARDO S 703.0 Nail Ingrown 10/15/2008 465.9 Acute Upper Respiratory Infections Of Unspecified Site 10/15/2008 465.9 Acute Upper Respiratory Infections Of Unspecified Site 10/15/2008 CHRISS MENDEZ MD 465.9 Acute Upper Respiratory Infections Of Unspecified Site 10/15/2008 RUIZ DO, ELVIA K 465.9 Acute Upper Respiratory Infections Of Unspecified Site 10/15/2008 ALLYN TACKER OFF, EDUARDO S 465.9 Acute Upper Respiratory Infections Of Unspecified Site 10/15/2008 ALLYN TACKER OFF, EDUARDO S 465.9 Acute Upper Respiratory Infections Of Unspecified Site 10/15/2008 ALLYN TACKER OFF, EDUARDO S 465.9 Acute Upper Respiratory Infections Of Unspecified Site 10/15/2008 NO TACKER OFF, BENTLEY A 465.9 Acute Upper Respiratory Infections Of Unspecified Site 10/15/2008 ALLYN TACKER OFF, EDUARDO S 465.9 Acute Upper Respiratory Infections Of Unspecified Site 10/15/2008 ALLYN TACKER OFF, EDUARDO S 465.9 Acute Upper Respiratory Infections Of Unspecified Site 10/15/2008 ALLYN TACKER OFF, EDUARDO S 465.9 Acute Upper Respiratory Infections Of Unspecified Site 10/15/2008 ALLYN TACKER OFF, EDUARDO S 465.9 Acute Upper Respiratory Infections Of Unspecified Site 10/15/2008 ALLYN TACKER OFF, EDUARDO S 465.9 Acute Upper Respiratory Infections Of Unspecified Site 05/28/2009 511.0 Pleurisy, Without Mention Of Effusion Or Current Tuberculosis 05/28/2009 511.0 Pleurisy, Without Mention Of Effusion Or Current Tuberculosis 05/28/2009 CHRISS MENDEZ MD 511.0 Pleurisy, Without Mention Of Effusion Or Current Tuberculosis 05/28/2009 SARA ABRAHAM, ELVIA K 511.0 Pleurisy, Without Mention Of Effusion Or Current Tuberculosis 05/28/2009 ALLYN TACKER OFF, EDUARDO S 511.0 Pleurisy, Without Mention Of Effusion Or Current Tuberculosis 05/28/2009 ALLYN TACKER OFF, EDUARDO S 511.0 Pleurisy, Without Mention Of Effusion Or Current Tuberculosis 05/28/2009 ALLYN TACKER OFF, EDUARDO S 511.0 Pleurisy, Without Mention Of Effusion Or Current Tuberculosis 05/28/2009 NO TACKER OFF, BENTLEY A 511.0 Pleurisy, Without Mention Of Effusion Or Current Tuberculosis 05/28/2009 ALLYN TACKER OFF, EDUARDO S 511.0 Pleurisy, Without Mention Of Effusion Or Current Tuberculosis 05/28/2009 ALLYN TACKER OFF, EDUARDO S 511.0 Pleurisy, Without Mention Of Effusion Or Current Tuberculosis 05/28/2009 ALLYN TACKER OFF, EDUARDO S 511.0 Pleurisy, Without Mention Of Effusion Or Current Tuberculosis 05/28/2009 ALLYN TACKER OFF, EDUARDO S 511.0 Pleurisy, Without Mention Of Effusion Or Current Tuberculosis 05/28/2009 ALLYN TACKER OFF, EDUARDO S 511.0 Pleurisy, Without Mention Of Effusion Or Current Tuberculosis 07/24/2009 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 CHRISS MENDEZ MD 733.6 Tietze's Disease 07/24/2009 ELVIA RUIZ DO 733.6 Tietze's Disease 07/24/2009 ALLYN TACKER OFF, EDUARDO S 733.6 Tietze's Disease 07/24/2009 ALLYN TACKER OFF, EDUARDO S 733.6 Tietze's Disease 07/24/2009 ALLYN TACKER OFF, EDUARDO S 733.6 Tietze's Disease 07/24/2009 NO TACKER OFF, BENTLEY A 733.6 Tietze's Disease 07/24/2009 ALLYN TACKER OFF, EDUARDO S 733.6 Tietze's Disease 07/24/2009 ALLYN TACKER OFF, EDUARDO S 733.6 Tietze's Disease 07/24/2009 ALLYN TACKER OFF, EDUARDO S 733.6 Tietze's Disease 07/24/2009 ALLYN TACKER OFF, EDUARDO S 733.6 Tietze's Disease 07/24/2009 ALLYN TACKER OFF, EDUARDO S 733.6 Tietze's Disease 07/31/2009 053.9 Herpes Zoster , Without Mention Of Complication 07/31/2009 053.9 Herpes Zoster , Without Mention Of Complication 07/31/2009 CHRISS MENDEZ MD 053.9 Herpes Zoster, Without Mention Of Complication 07/31/2009 ELVIA RUIZ DO 053.9 Herpes Zoster, Without Mention Of Complication 07/31/2009 ALLYN TACKER OFF, EDUARDO S 053.9 Herpes Zoster, Without Mention Of Complication 07/31/2009 ALLYN TACKER OFF, EDUARDO S 053.9 Herpes Zoster, Without Mention Of Complication 07/31/2009 ALLYN TACKER OFF, EDUARDO S 053.9 Herpes Zoster, Without Mention Of Complication 07/31/2009 NO TACKER OFF, BENTLEY A 053.9 Herpes Zoster, Without Mention Of Complication 07/31/2009 ALLYN TACKER OFF, EDUARDO S 053.9 Herpes Zoster, Without Mention Of Complication 07/31/2009 ALLYN TACKER OFF, EDUARDO S 053.9 Herpes Zoster, Without Mention Of Complication 07/31/2009 ALLYN TACKER OFF, EDUARDO S 053.9 Herpes Zoster, Without Mention Of Complication 07/31/2009 ALLYN TACKER OFF, EDUARDO S 053.9 Herpes Zoster, Without Mention Of Complication 07/31/2009 ALLYN TACKER OFF, EDUARDO S 053.9 Herpes Zoster, Without Mention Of Complication 10/29/2009 300.00 Anxiety State , Unspecified 10/29/2009 300.00 Anxiety State , Unspecified 10/29/2009 CHRISS MENDEZ MD 300.00 Anxiety State, Unspecified 10/29/2009 ELVIA RUIZ DO 300.00 Anxiety State, Unspecified 10/29/2009 ALLYN TACKER OFF, EDUARDO S 300.00 Anxiety State, Unspecified 10/29/2009 ALLYN TACKER OFF, EDUARDO S 300.00 Anxiety State, Unspecified 10/29/2009 ALLYN TACKER OFF, EDUARDO S 300.00 Anxiety State, Unspecified 10/29/2009 NO TACKER OFF, BENTLEY A 300.00 Anxiety State, Unspecified 10/29/2009 ALLYN TACKER OFF, EDUARDO S 300.00 Anxiety State, Unspecified 10/29/2009 ALLYN TACKER OFF, EDUARDO S 300.00 Anxiety State, Unspecified 10/29/2009 ALLYN TACKER OFF, EDUARDO S 300.00 Anxiety State, Unspecified 10/29/2009 ALLYN TACKER OFF, EDUARDO S 300.00 Anxiety State, Unspecified 10/29/2009 ALLYN TACKER OFF, EDUARDO S 300.00 Anxiety State, Unspecified 11/13/2009 [...] Without Mention Of Status Migrainosus 11/13/2009 ALLYN TACKER OFF, EDUARDO S 346.00 Migraine With Aura, Without Mention Of Intractable Migraine Without Mention Of Status Migrainosus 11/13/2009 ALLYN TACKER OFF, EDUARDO S 346.00 Migraine With Aura, Without Mention Of Intractable Migraine Without Mention Of Status Migrainosus 11/13/2009 ALLYN TACKER OFF, EDUARDO S 346.00 Migraine With Aura, Without Mention Of Intractable Migraine Without Mention Of Status Migrainosus 11/13/2009 NO TACKER OFF, BENTLEY A 346.00 Migraine With Aura, Without Mention Of Intractable Migraine Without Mention Of Status Migrainosus 11/13/2009 ALLYN TACKER OFF, EDUARDO S 346.00 Migraine With Aura, Without Mention Of Intractable Migraine Without Mention Of Status Migrainosus 11/13/2009 ALLYN TACKER OFF, EDUARDO S 346.00 Migraine With Aura, Without Mention Of Intractable Migraine Without Mention Of Status Migrainosus 11/13/2009 ALLYN TACKER OFF, EDUARDO S 346.00 Migraine With Aura, Without Mention Of Intractable Migraine Without Mention Of Status Migrainosus 11/13/2009 ALLYN TACKER OFF, EDUARDO S 346.00 Migraine With Aura, Without Mention Of Intractable Migraine Without Mention Of Status Migrainosus 11/13/2009 ALLYN TACKER OFF, EDUARDO S 346.00 Migraine With Aura, Without Mention Of Intractable Migraine Without Mention Of Status Migrainosus 02/04/2010 682.7 Cellulitis And Abscess Of Foot Except Toes 02/04/2010 682.7 Cellulitis And Abscess Of Foot Except Toes 02/04/2010 CHRISS MENDEZ MD 682.7 Cellulitis And Abscess Of Foot Except Toes 02/04/2010 ELVIA RUIZ DO 682.7 Cellulitis And Abscess Of Foot Except Toes 02/04/2010 ALLYN TACKER OFF, EDUARDO S 682.7 Cellulitis And Abscess Of Foot Except Toes 02/04/2010 ALLYN TACKER OFF, EDUARDO S 682.7 Cellulitis And Abscess Of Foot Except Toes 02/04/2010 ALLYN TACKER OFF, EDUARDO S 682.7 Cellulitis And Abscess Of Foot Except Toes 02/04/2010 NO TACKER OFF, BENTLEY A 682.7 Cellulitis And Abscess Of Foot Except Toes 02/04/2010 ALLYN TACKER OFF, EDUARDO S 682.7 Cellulitis And Abscess Of Foot Except Toes 02/04/2010 ALLYN TACKER OFF, EDUARDO S 682.7 Cellulitis And Abscess Of Foot Except Toes 02/04/2010 ALLYN TACKER OFF, EDUARDO S 682.7 Cellulitis And Abscess Of Foot Except Toes 02/04/2010 ALLYN TACKER OFF, EDUARDO S 682.7 Cellulitis And Abscess Of Foot Except Toes 02/04/2010 ALLYN TACKER OFF, EDUARDO S 682.7 Cellulitis And Abscess Of [...] V17.49 FAM HX ASCVD (DISEASE) 12/16/2010 RUIZ ELVIA ABRAHAM 724.5 Back Pain, General 12/16/2010 ELVIA RUIZ DO V17.49 FAM HX ASCVD (DISEASE) 12/16/2010 ALLYN TACKER OFFJONEDUARDO S 724.5 Back Pain, General 12/16/2010 JON GRUBER APRNNDA S V17.49 FAM HX ASCVD (DISEASE) 12/16/2010 ALLYN TACKER OFF, EDUARDO S 724.5 Back Pain, General 12/16/2010 ALLYN TACKER OFF, EDUARDO S V17.49 FAM HX ASCVD (DISEASE) 12/16/2010 ALLYN TACKER OFF, EDUARDO S 724.5 Back Pain, General 12/16/2010 ALLYN TACKER OFF, EDUARDO S V17.49 FAM HX ASCVD (DISEASE) 12/16/2010 NO TACKER OFF, BENTLEY A 724.5 Back Pain, General 12/16/2010 NO TACKER OFF, BENTLEY A V17.49 FAM HX ASCVD (DISEASE) 12/16/2010 ALLYN TACKER OFF, EDUARDO S 724.5 Back Pain, General 12/16/2010 ALLYN TACKER OFF, EDUARDO S V17.49 FAM HX ASCVD (DISEASE) 12/16/2010 ALLYN TACKER OFF, EDUARDO S 724.5 Back Pain, General 12/16/2010 ALLYN TACKER OFF, EDUARDO S V17.49 FAM HX ASCVD (DISEASE) 12/16/2010 ALLYN TACKER OFF, EDUARDO S 724.5 Back Pain, General 12/16/2010 ALLYN TACKER OFF, EDUARDO S V17.49 FAM HX ASCVD (DISEASE) 12/16/2010 ALLYN TACKER OFF, EDUARDO S 724.5 Back Pain, General 12/16/2010 ALLYN TACKER OFF, EDUARDO S V17.49 FAM HX ASCVD (DISEASE) 12/16/2010 ALLYN TACKER OFF, EDUARDO S 724.5 Back Pain, General 12/16/2010 ALLYN TACKER OFF, EDUARDO S V17.49 FAM HX ASCVD (DISEASE) 01/13/2011 381.81 DYSFUNCTION OF EUSTACHIAN TUBE 01/13/2011 381.81 DYSFUNCTION OF EUSTACHIAN TUBE 01/13/2011 CHRISS MENDEZ MD 381.81 DYSFUNCTION OF EUSTACHIAN TUBE 01/13/2011 ELVIA RUIZ DO 381.81 DYSFUNCTION OF EUSTACHIAN TUBE 01/13/2011 ALLYN TACKER OFF, EDUARDO S 381.81 DYSFUNCTION OF EUSTACHIAN TUBE 01/13/2011 ALLYN TACKER OFF EDUARDO S 381.81 DYSFUNCTION OF EUSTACHIAN TUBE 01/13/2011 ALLYN TACKER OFF, EDUARDO S 381.81 DYSFUNCTION OF EUSTACHIAN TUBE 01/13/2011 BENTLEY SARABIA APRN A 381.81 DYSFUNCTION OF EUSTACHIAN TUBE 01/13/2011 ALLYN TACKER OFF, EDUARDO S 381.81 DYSFUNCTION OF EUSTACHIAN TUBE 01/13/2011 ALLYN TACKER OFF, EDUARDO S 381.81 DYSFUNCTION OF EUSTACHIAN TUBE 01/13/2011 ALLYN TACKER OFF, EDUARDO S 381.81 DYSFUNCTION OF EUSTACHIAN TUBE 01/13/2011 ALLYN TACKER OFF, EDUARDO S 381.81 DYSFUNCTION OF EUSTACHIAN TUBE 01/13/2011 ALLYN TACKER OFF, EDUARDO S 381.81 DYSFUNCTION OF EUSTACHIAN TUBE 02/18/2011 V04.81 FLU DX (3 YRS AND ABOVE, IM) 02/18/2011 V04.81 FLU DX (3 YRS AND ABOVE, IM) 02/18/2011 CHRISS MENDEZ MD V04.81 FLU DX (3 YRS AND ABOVE, IM) 02/18/2011 ELVIA RUIZ DO V04.81 FLU DX (3 YRS AND ABOVE, IM) 02/18/2011 DEXTER GRUBER APRNA S V04.81 FLU DX (3 YRS AND ABOVE, IM) 02/18/2011 DEXTER GRUBER APRNA S V04.81 FLU DX (3 YRS AND ABOVE, IM) 02/18/2011 DEXTER GRUBER APRNA S V04.81 FLU DX (3 YRS AND ABOVE, IM) 02/18/2011 BENTLEY SARABIA APRN A V04.81 FLU DX (3 YRS AND ABOVE, IM) 02/18/2011 JON GRUBER APRNNDA S V04.81 FLU DX (3 YRS AND ABOVE, IM) 02/18/2011 JON GRUBER APRNNDA S V04.81 FLU DX (3 YRS AND ABOVE, IM) 02/18/2011 ALLYN AMAYANJONEDUARDO S V04.81 FLU DX (3 YRS AND ABOVE, IM) 02/18/2011 DEXTER GRUBER APRNA S V04.81 FLU DX (3 YRS AND ABOVE, IM) 02/18/2011 ALLYN TACKER OFF, EDUARDO S V04.81 FLU DX (3 YRS AND ABOVE, IM) 02/25/2011 702.8 OTHER SPECIFIED DERMATOSES 02/25/2011 702.8 OTHER SPECIFIED DERMATOSES 02/25/2011 CHRISS MENDEZ MD 702.8 OTHER SPECIFIED DERMATOSES 02/25/2011 ELVIA RUIZ DO K 702.8 OTHER SPECIFIED DERMATOSES 02/25/2011 ALLYN TACKER OFF, EDUARDO S 702.8 OTHER SPECIFIED DERMATOSES 02/25/2011 ALLYN TACKER OFF, EDUARDO S 702.8 OTHER SPECIFIED DERMATOSES 02/25/2011 ALLYN TACKER OFF, EDUARDO S 702.8 OTHER SPECIFIED DERMATOSES 02/25/2011 NO PRATT, BENTLEY A 702.8 OTHER SPECIFIED DERMATOSES 02/25/2011 ALLYN TACKER OFF, EDUARDO S 702.8 OTHER SPECIFIED DERMATOSES 02/25/2011 ALLYN TACKER OFF, EDUARDO S 702.8 OTHER SPECIFIED DERMATOSES 02/25/2011 ALLYN TACKER OFF, EDUARDO S 702.8 OTHER SPECIFIED DERMATOSES 02/25/2011 ALLYN TACKER OFF, EDUARDO S 702.8 OTHER SPECIFIED DERMATOSES 02/25/2011 ALLYN TACKER OFF, EDUARDO S 702.8 OTHER SPECIFIED DERMATOSES 03/03/2011 401.1 HYPERTENSION, BENIGN ESSENTIAL 03/03/2011 401.1 HYPERTENSION, BENIGN ESSENTIAL 03/03/2011 CHRISS MENDEZ MD 401.1 HYPERTENSION, BENIGN ESSENTIAL 03/03/2011 ELVIA RUIZ DO K 401.1 HYPERTENSION, BENIGN ESSENTIAL 03/03/2011 ALLYN TACKER OFF, EDUARDO S 401.1 HYPERTENSION, BENIGN ESSENTIAL 03/03/2011 ALLYN TACKER OFF, EDUARDO S 401.1 HYPERTENSION, BENIGN ESSENTIAL 03/03/2011 ALLYN TACKER OFF, EDUARDO S 401.1 HYPERTENSION, BENIGN ESSENTIAL 03/03/2011 NOQuique PRATT BENTLEY A 401.1 HYPERTENSION, BENIGN ESSENTIAL 03/03/2011 ALLYN TACKER OFF, EDUARDO S 401.1 HYPERTENSION, BENIGN ESSENTIAL 03/03/2011 ALLYN TACKER OFF, EDUARDO S 401.1 HYPERTENSION, BENIGN ESSENTIAL 03/03/2011 ALLYN TACKER OFF, EDUARDO S 401.1 HYPERTENSION, BENIGN ESSENTIAL 03/03/2011 ALLYN TACKER OFF, EDUARDO S 401.1 HYPERTENSION, BENIGN ESSENTIAL 03/03/2011 ALLYN TACKER OFF, EDUARDO S 401.1 HYPERTENSION, BENIGN ESSENTIAL 04/07/2011 465.9 UPPER RESPIRATORY INFECTION 04/07/2011 V03.82 Need For Vaccination Pneumococcal 04/07/2011 465.9 UPPER RESPIRATORY INFECTION 04/07/2011 V03.82 Need For Vaccination Pneumococcal 04/07/2011 CHRISS MENDEZ MD 465.9 UPPER RESPIRATORY INFECTION 04/07/2011 CHRISS MENDEZ MD V03.82 Need For Vaccination Pneumococcal 04/07/2011 RUIZ DO, ELVIA K 465.9 UPPER RESPIRATORY INFECTION 04/07/2011 RUIZ DODARCYA K V03.82 Need For Vaccination Pneumococcal 04/07/2011 ALLYN TACKER OFF, EDUARDO S 465.9 UPPER RESPIRATORY INFECTION 04/07/2011 ALLYN TACKER OFF, EDUARDO S V03.82 Need For Vaccination Pneumococcal 04/07/2011 ALLYN TACKER OFF, EDUARDO S 465.9 UPPER RESPIRATORY INFECTION 04/07/2011 ALLYN AMAYAN, EDUARDO S V03.82 Need For Vaccination Pneumococcal 04/07/2011 ALLYN TACKER OFF, EDUARDO S 465.9 UPPER RESPIRATORY INFECTION 04/07/2011 ALLYN TACKER OFF, EDUARDO S V03.82 NEED FOR VACCINATION PNEUMOCOCCAL 04/07/2011 NO TACKER OFF, BENTLEY A 465.9 UPPER RESPIRATORY INFECTION 04/07/2011 NO TACKER OFF, BENTLEY A V03.82 NEED FOR VACCINATION PNEUMOCOCCAL 04/07/2011 ALLYN TACKER OFF, EDUARDO S 465.9 UPPER RESPIRATORY INFECTION 04/07/2011 ALLYN TACKER OFF, EDUARDO S V03.82 NEED FOR VACCINATION PNEUMOCOCCAL 04/07/2011 ALLYN TACKER OFF, EDUARDO S 465.9 UPPER RESPIRATORY INFECTION 04/07/2011 ALLYN TACKER OFF, EDUARDO S V03.82 NEED FOR VACCINATION PNEUMOCOCCAL 04/07/2011 ALLYN TACKER OFF, EDUARDO S 465.9 UPPER RESPIRATORY INFECTION 04/07/2011 ALLYN TACKER OFF, EDUARDO S V03.82 NEED FOR VACCINATION PNEUMOCOCCAL 04/07/2011 ALLYN TACKER OFF, EDUARDO S 465.9 UPPER RESPIRATORY INFECTION 04/07/2011 JON GRUBER APRNNDA S V03.82 NEED FOR VACCINATION PNEUMOCOCCAL 04/07/2011 JON GRUBER APRNNDA S 465.9 UPPER RESPIRATORY INFECTION 04/07/2011 ALLYN PRATT, EDUARDO S V03.82 NEED FOR VACCINATION PNEUMOCOCCAL 07/06/2011 386.11 BENIGN PAROXYSMAL POSITIONAL VERTIGO 07/06/2011 709.8 OTHER SPECIFIED DISORDERS OF SKIN 07/06/2011 386.11 BENIGN PAROXYSMAL POSITIONAL VERTIGO 07/06/2011 709.8 OTHER SPECIFIED DISORDERS OF SKIN 07/06/2011 CHRISS MENDEZ MD 386.11 BENIGN PAROXYSMAL POSITIONAL VERTIGO 07/06/2011 CHRISS MENDEZ MD 709.8 OTHER SPECIFIED DISORDERS OF SKIN 07/06/2011 RUIZ DO ELVIA K 386.11 BENIGN PAROXYSMAL POSITIONAL VERTIGO 07/06/2011 RUIZ DOELVIA K 709.8 OTHER SPECIFIED DISORDERS OF SKIN 07/06/2011 ALLYN PRATT EDUARDO S 386.11 BENIGN PAROXYSMAL POSITIONAL VERTIGO 07/06/2011 JON GRUBER APRNNDA S 709.8 OTHER SPECIFIED DISORDERS OF SKIN 07/06/2011 ALLYN PRATT EDUARDO S 386.11 BENIGN PAROXYSMAL POSITIONAL VERTIGO 07/06/2011 ALLYN PRATT EDUARDO S 709.8 OTHER SPECIFIED DISORDERS OF SKIN 07/06/2011 ALLYN PRATT, EDUARDO S 386.11 BENIGN PAROXYSMAL POSITIONAL VERTIGO 07/06/2011 ALLYNMELLO PRATT EDUARDO S 709.8 OTHER SPECIFIED DISORDERS OF SKIN 07/06/2011 NO TACKER OFF, BENTLEY A 386.11 BENIGN PAROXYSMAL POSITIONAL VERTIGO 07/06/2011 NO TACKER OFF, BENTLEY A 709.8 OTHER SPECIFIED DISORDERS OF SKIN 07/06/2011 ALLYN PRATT, EDUARDO S 386.11 BENIGN PAROXYSMAL POSITIONAL VERTIGO 07/06/2011 ALLYN PRATT EDUARDO S 709.8 OTHER SPECIFIED DISORDERS OF SKIN 07/06/2011 ALLYN PRATT, EDUARDO S 386.11 BENIGN PAROXYSMAL POSITIONAL VERTIGO 07/06/2011 ALLYN PRATT EDUARDO S 709.8 OTHER SPECIFIED DISORDERS OF SKIN 07/06/2011 ALLYN PRATT EDUARDO S 386.11 BENIGN PAROXYSMAL POSITIONAL VERTIGO 07/06/2011 ALLYN TACKER OFF, EDUARDO S 709.8 OTHER SPECIFIED DISORDERS OF SKIN 07/06/2011 ALLYN TACKER OFF, EDUARDO S 386.11 BENIGN PAROXYSMAL POSITIONAL VERTIGO 07/06/2011 ALLYN TACKER OFF, EDUARDO S 709.8 OTHER SPECIFIED DISORDERS OF SKIN 07/06/2011 ALLYN TACKER OFF, EDUARDO S 386.11 BENIGN PAROXYSMAL POSITIONAL VERTIGO 07/06/2011 ALLYN TACKER OFF, EDUARDO S 709.8 OTHER SPECIFIED DISORDERS OF [...] 06/27/2012 786.2 COUGH 06/27/2012 786.2 COUGH 06/27/2012 VANESSA SILVA, CHRISS 786.2 COUGH 06/27/2012 ELVIA RUIZ DO 786.2 COUGH 06/27/2012 ALLYN TACKER OFF, EDUARDO S 786.2 COUGH 06/27/2012 ALLYN TACKER OFF, EDUARDO S 786.2 COUGH 06/27/2012 ALLYN TACKER OFF, EDUARDO S 786.2 COUGH 06/27/2012 NO AMAYAN BENTLEY A 786.2 COUGH 06/27/2012 ALLYN TACKER OFF, EDUARDO S 786.2 COUGH 06/27/2012 ALLYN TACKER OFF, EDUARDO S 786.2 COUGH 06/27/2012 ALLYN TACKER OFF, EDUARDO S 786.2 COUGH 06/27/2012 ALLYN TACKER OFF, EDUARDO S 786.2 COUGH 06/27/2012 ALLYN TACKER OFF, EDUARDO S 786.2 COUGH 11/30/2012 SHAQ SILVA, RENETTA Ot 564.00 UNSPEC CONSTIPATION 11/30/2012 SHAQ SILVA, RENETTA Ot 599.0 URIN TRACT INFECTION NOS 11/30/2012 SHAQ SILVA, RENETTA Ot 787.01 NAUSEA WITH VOMITING 11/30/2012 RENETTA NEW MD Ot 789.01 ABDOMINAL PAIN, RIGHT UPPER QUADRANT 05/01/2013 ALLYN TACKER OFF, EDUARDO S 053.9 HERPES ZOSTER (SHINGLES) 05/01/2013 ALLYN TACKER OFF, EDUARDO S 684 IMPETIGO 05/01/2013 ALLYN TACKER OFF, EDUARDO S 053.9 HERPES ZOSTER (SHINGLES) 05/01/2013 ALLYN TACKER OFF, EDUARDO S 684 IMPETIGO 05/01/2013 ALLYN TACKER OFF, EDUARDO S 053.9 HERPES ZOSTER (SHINGLES) 05/01/2013 ALLYN TACKER OFF, EDUARDO S 684 IMPETIGO 05/01/2013 NO TACKER OFF, BENTLEY A 053.9 HERPES ZOSTER (SHINGLES) 05/01/2013 NO TACKER OFF, BENTLEY A 684 IMPETIGO 05/01/2013 ALLYN TACKER OFF, EDUARDO S 053.9 HERPES ZOSTER (SHINGLES) 05/01/2013 ALLYN TACKER OFF, EDUARDO S 684 IMPETIGO 05/01/2013 ALLYN TACKER OFF, EDUARDO S 053.9 HERPES ZOSTER (SHINGLES) 05/01/2013 ALLYN TACKER OFF, EDUARDO S 684 IMPETIGO 05/01/2013 ALLYN TACKER OFF, EDUARDO S 053.9 HERPES ZOSTER (SHINGLES) 05/01/2013 ALLYN TACKER OFF, EDUARDO S 684 IMPETIGO 05/01/2013 ALLYN TACKER OFF, EDUARDO S 053.9 HERPES ZOSTER (SHINGLES) 05/01/2013 ALLYN TACKER OFF, EDUARDO S 684 IMPETIGO 05/01/2013 ALLYN TACKER OFF, EDUARDO S 053.9 HERPES ZOSTER (SHINGLES) 05/01/2013 ALLYN TACKER OFF, EDUARDO S 684 IMPETIGO 06/20/2013 ALLYN TACKER OFF, EDUARDO S 599.0 URINARY TRACT INFECTION 06/20/2013 ALLYN PRTAT EDUARDO S 599.0 URINARY TRACT INFECTION 06/20/2013 BENTLEY SARABIA APRN A 599.0 URINARY TRACT INFECTION 06/20/2013 ALLYN TACKER OFF, EDUARDO S 599.0 URINARY TRACT INFECTION 06/20/2013 ALLYN TACKER OFF, EDUARDO S 599.0 URINARY TRACT INFECTION 06/20/2013 JON GRUBER APRNNDA S 599.0 URINARY TRACT INFECTION 06/20/2013 ALLYN TACKER OFF, EDUARDO S 599.0 URINARY TRACT INFECTION 06/20/2013 [...] CAUSED BY OTHER OBJ 10/24/2013 BISI BUCK TACKER OFF Ot 682.2 CELLULITIS OF TRUNK 10/26/2013 JON GRUBER APRNNDA S 682.9 CELLULITIS [...] GALACTORRHEA NOT ASSOCIATED WITH CHILDBIRTH 11/14/2013 NO PRATT BENTLEY A 611.79 OTHER SIGNS AND SYMPTOMS IN BREAST 11/14/2013 NO TACKER OFF BENTLEY A 625.0 DYSPAREUNIA 11/14/2013 NO AMAYAN BENTLEY A 719.43 PAIN- WRIST 11/14/2013 NO AMAYANCARMENBENTLEY A V16.3 FAM HX CANCER, BREAST 11/14/2013 NO AMAYANCARMENBENTLEY A V72.31 PLOW HOLDER EXAM, ROUTINE 11/14/2013 NO TACKER OFF BENTLEY A V76.10 BREAST CANCER SCREENING 11/14/2013 NO AMAYAN BENTLEY A V76.51 COLON CANCER SCREENING 11/14/2013 ALLYN TACKER OFF, EDUARDO S 611.6 GALACTORRHEA NOT ASSOCIATED WITH CHILDBIRTH 11/14/2013 ALLYN TACKER OFF, EDUARDO S 611.79 OTHER SIGNS AND SYMPTOMS IN BREAST 11/14/2013 ALLYN TACKER OFF, EDUARDO S 625.0 DYSPAREUNIA 11/14/2013 ALLYNMELLO AMAYAN, EDUARDO S 719.43 PAIN- WRIST 11/14/2013 ALLYN TACKER OFF, EDUARDO S V16.3 FAM HX CANCER, BREAST 11/14/2013 ALLYN TACKER OFF, EDUARDO S V72.31 PLOW HOLDER EXAM, ROUTINE 11/14/2013 ALLYN TACKER OFF, EDUARDO S V76.10 BREAST CANCER SCREENING 11/14/2013 ALLYN TACKER OFF, EDUARDO S V76.51 COLON CANCER SCREENING 11/14/2013 ALLYN TACKER OFF, EDUARDO S 611.6 GALACTORRHEA NOT ASSOCIATED WITH CHILDBIRTH 11/14/2013 ALLYN TACKER OFF, EDUARDO S 611.79 OTHER SIGNS AND SYMPTOMS IN BREAST 11/14/2013 ALLYN TACKER OFF, EDUARDO S 625.0 DYSPAREUNIA 11/14/2013 ALLYN TACKER OFF, EDUARDO S 719.43 PAIN- WRIST 11/14/2013 ALLYN TACKER OFF, EDUARDO S V16.3 FAM HX CANCER, BREAST 11/14/2013 ALLYN TACKER OFF, EDUARDO S V72.31 PLOW HOLDER EXAM, ROUTINE 11/14/2013 ALLYN TACKER OFF, EDUARDO S V76.10 BREAST CANCER SCREENING 11/14/2013 ALLYN TACKER OFF, EDUARDO S V76.51 COLON CANCER SCREENING 11/14/2013 ALLYN TACKER OFF, EDUARDO S 611.6 GALACTORRHEA NOT ASSOCIATED WITH CHILDBIRTH 11/14/2013 ALLYN TACKER OFF, EDUARDO S 611.79 OTHER SIGNS AND SYMPTOMS IN BREAST 11/14/2013 ALLYN TACKER OFF, EDUARDO S 625.0 DYSPAREUNIA 11/14/2013 ALLYN TACKER OFF, EDUARDO S 719.43 PAIN- WRIST 11/14/2013 ALLYN TACKER OFF, EDUARDO S V16.3 FAM HX CANCER, BREAST 11/14/2013 ALLYN TACKER OFF, EDUARDO S V72.31 PLOW HOLDER EXAM, ROUTINE 11/14/2013 ALLYN TACKER OFF, EDUARDO S V76.10 BREAST CANCER SCREENING 11/14/2013 ALLYN TACKER OFF, EDUARDO S V76.51 COLON CANCER SCREENING 11/14/2013 ALLYN TACKER OFF, EDUARDO S 611.6 GALACTORRHEA NOT ASSOCIATED WITH CHILDBIRTH 11/14/2013 ALLYN TACKER OFF, EDUARDO S 611.79 OTHER SIGNS AND SYMPTOMS IN BREAST 11/14/2013 ALLYN TACKER OFF, EDUARDO S 625.0 DYSPAREUNIA 11/14/2013 ALLYN TACKER OFF, EDUARDO S 719.43 PAIN- WRIST 11/14/2013 ALLYN TACKER OFF, EDUARDO S V16.3 FAM HX CANCER, BREAST 11/14/2013 ALLYN TACKER OFF, EDUADRO S V72.31 PLOW HOLDER EXAM, ROUTINE 11/14/2013 ALLYN TACKER OFF, EDUARDO S V76.10 BREAST CANCER SCREENING 11/14/2013 ALLYN TACKER OFF, EDUARDO S V76.51 COLON CANCER SCREENING 11/14/2013 ALLYN TACKER OFF, EDUARDO S 611.6 GALACTORRHEA NOT ASSOCIATED WITH CHILDBIRTH 11/14/2013 ALLYN TACKER OFF, EDUARDO S 611.79 OTHER SIGNS AND SYMPTOMS IN BREAST 11/14/2013 ALLYN TACKER OFF, EDUARDO S 625.0 DYSPAREUNIA 11/14/2013 ALLYN TACKER OFF, EDUARDO S 719.43 PAIN- WRIST 11/14/2013 ALLYN TACKER OFF, EDUARDO S V16.3 FAM HX CANCER, BREAST 11/14/2013 ALLYN TACKER OFF, EDUARDO S V72.31 PLOW HOLDER EXAM, ROUTINE 11/14/2013 ALLYN TACKER OFF, EDUARDO S V76.10 BREAST CANCER SCREENING 11/14/2013 ALLYN TACKER OFF, EDUARDO S V76.51 COLON CANCER SCREENING 02/05/2014 ALLYN TACKER OFF, EDUARDO S 477.0 ALLERGIC RHINITIS DUE TO POLLEN 02/05/2014 ALLYN TACKER OFF, EDUARDO S 789.00 ABDOMINAL PAIN UNSPECIFIED SITE 02/05/2014 ALLYN TACKER OFF, EDUARDO S 477.0 ALLERGIC RHINITIS DUE TO POLLEN 02/05/2014 ALLYN TACKER OFF, EDUARDO S 789.00 ABDOMINAL PAIN UNSPECIFIED SITE 02/05/2014 ALLYN TACKER OFF, EDUARDO S 477.0 ALLERGIC RHINITIS DUE TO POLLEN 02/05/2014 ALLYN TACKER OFF, EDUARDO S 789.00 ABDOMINAL PAIN UNSPECIFIED SITE 02/05/2014 ALLYN TACKER OFF, EDUARDO S 477.0 ALLERGIC RHINITIS DUE TO POLLEN 02/05/2014 ALLYN TACKER OFF, EDUARDO S 789.00 ABDOMINAL PAIN UNSPECIFIED SITE 03/03/2014 BISI BUCK TACKER OFF Ot 599.0 URIN TRACT INFECTION NOS 03/03/2014 BISI BUCK TACKER OFF Ot 789.03 ABDOMINAL PAIN, RIGHT LOWER QUADRANT 03/21/2014 BISI BUCK TACKER OFF Ot 599.0 URIN TRACT INFECTION NOS 03/21/2014 BISI BUCK TACKER OFF Ot 789.03 ABDOMINAL PAIN, RIGHT LOWER QUADRANT 03/21/2014 NO BENTLEY A TACKER OFF Ot 611.6 03/21/2014 NO, BENTLEY A TACKER OFF Ot 611.79 03/21/2014 NO, BENTLEY A TACKER OFF Ot 625.0 03/21/2014 NO, BENTLEY A TACKER OFF Ot V16.3 03/21/2014 NO, BENTLEY A TACKER OFF Ot V72.31 03/21/2014 NO, BENTLEY A TACKER OFF Ot V76.11 03/21/2014 NO, BENTLEY A TACKER OFF Ot V76.51 04/10/2014 ALLYN TACKER OFF, EDUARDO S 112.3 CANDIDIASIS OF SKIN AND NAILS 04/10/2014 ALLYN TACKER OFF, EDUARDO S V04.81 FLU SHOT 04/10/2014 ALLYN TACKER OFF, EDUARDO S 112.3 CANDIDIASIS OF SKIN AND NAILS 04/10/2014 ALLYN TACKER OFF, EDUARDO S V04.81 FLU SHOT 04/10/2014 ALLYN TACKER OFF, EDUARDO S 112.3 CANDIDIASIS OF SKIN AND NAILS 04/10/2014 ALLYN TACKER OFF, EDUARDO S V04.81 FLU SHOT 07/23/2014 ALLYN TACKER OFF, EDUARDO S 388.70 OTALGIA 07/23/2014 ALLYN TACKER OFF, EDUARDO S 465.9 UPPER RESPIRATORY INFECTION 07/23/2014 ALLYN TACKER OFF, EDUARDO S 780.4 DIZZINESS AND VERTIGO 07/23/2014 ALLYN TACKER OFF, EDUARDO S 786.2 COUGH 07/23/2014 ALLYN TACKER OFF, EDUARDO S 388.70 OTALGIA 07/23/2014 ALLYN TACKER OFF, EDUARDO S 465.9 UPPER RESPIRATORY INFECTION 07/23/2014 ALLYN TACKER OFF, EDUARDO S 780.4 DIZZINESS AND VERTIGO 07/23/2014 ALLYN TACKER OFF, EDUARDO S 786.2 COUGH 08/27/2014 ALLYN TACKER OFF, EDUARDO S 493.90 ASTHMA UNSPECIFIED 08/27/2014 ALLYN TACKER OFF, EDUARDO S 599.0 URINARY TRACT INFECTION 08/27/2014 ALLYN TACKER OFF, EDUARDO S 788.1 DYSURIA 10/10/2014 NO, BENTLEY A TACKER OFF Ot 611.6 10/10/2014 NO, BENTLEY A TACKER OFF Ot 611.79 10/10/2014 NO, BENTLEY A TACKER OFF Ot 625.0 10/10/2014 NO, BENTLEY A TACKER OFF Ot V16.3 10/10/2014 NO, BENTLEY A TACKER OFF Ot V72.31 10/10/2014 NO, BENTLEY A TACKER OFF Ot V76.11 10/10/2014 NO, BENTLEY A TACKER OFF Ot V76.51 10/10/2014 VLADIMIR MARK DO Ot 133.0 SCABIES 10/10/2014 DEEDEE ABRAHAM VLADIMIR Ronnie Ot 782.1 NONSPECIF SKIN ERUPT NEC 10/24/2014 HAMZAH SILVA, NURA Trujillo Ot 133.0 SCABIES 11/26/2014 ELIGIO JUAREZ DO Ot 133.0 SCABIES 11/26/2014 ELIGIO JUAREZ DO Ot 782.1 NONSPECIF SKIN ERUPT NEC 02/11/2015 BISI BUCK TACKER OFF Ot T18.128A FOOD IN ESOPHAGUS CAUSING OTHER INJURY, 02/11/2015 BISI BUCK TACKER OFF Ot X58.XXXA EXPOSURE TO OTHER SPECIFIED FACTORS, INI 02/11/2015 BISI BUCK TACKER OFF Ot Y99.8 OTHER EXTERNAL CAUSE STATUS 08/21/2015 SHIVA MEREDITH MD Ot E11.9 TYPE 2 DIABETES MELLITUS WITHOUT COMPLIC 08/21/2015 SHIVA MEREDITH MD Ot I10 ESSENTIAL (PRIMARY) HYPERTENSION 08/21/2015 SHIVA MEREDITH MD Ot J44.9 CHRONIC OBSTRUCTIVE PULMONARY DISEASE, U 08/21/2015 SHIVA MEREDITH MD Ot R11.2 NAUSEA WITH VOMITING, UNSPECIFIED 08/21/2015 SHIVA MEREDITH MD Ot R21 RASH AND OTHER NONSPECIFIC SKIN ERUPTION 08/21/2015 SHIVA MEREDITH MD, Ot R42 DIZZINESS AND GIDDINESS 08/21/2015 SHIVA MEREDITH MD Ot T38.0X5A ADVERSE EFFECT OF GLUCOCORT/SYNTH ANALOG 01/06/2016 BENTLEY SARABIA TACKER OFF Ot 611.6 GALACTORRHEA-NONOBSTET 01/06/2016 BENTLEY SARABIA APRN Ot 611.79 SYMPTOMS IN BREAST NEC 01/06/2016 BENTLEY SARABIA TACKER OFF Ot 625.0 DYSPAREUNIA 01/06/2016 BENTLEY SARABIA APRN Ot V16.3 FAMILY HX-BREAST MALIG 01/06/2016 BENTLEY SARABIA APRN Ot V72.31 ROUTINE GYNECOLOGICAL EXAMINATION 01/06/2016 BENTLEY SARABIA TACKER OFF Ot V76.11 SCRN MAMMO-HIGH RISK PT, MALIGNANT NEOPL 01/06/2016 BENTLEY SARABIA TACKER OFF Ot V76.51 SCREEN MAL NEOP-COLON 01/07/2016 ELVIA RUIZ DO Ot G40.909 EPILEPSY, UNSP, NOT INTRACTABLE, WITHOUT 01/07/2016 SARA ABRAHAM ELVIA Ronnie Ot G47.30 SLEEP APNEA, UNSPECIFIED 01/07/2016 SARA ABRAHAM ELVIA K Ot I10 ESSENTIAL (PRIMARY) HYPERTENSION 01/07/2016 SARA ABRAHAM ELVIA Ronnie Ot J44.9 CHRONIC OBSTRUCTIVE PULMONARY DISEASE, U 01/07/2016 SARA ABRAHAM EVLIA Ronnie Ot N39.0 URINARY TRACT INFECTION, SITE [...] 06/19/2016 BISI BUCK APRN Ot 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 06/19/2016 BISI BUCK APRN [...] ANXIETY DISORDER, UNSPECIFIED 06/22/2016 BUCK, PETER J TACKER OFF Ot I10 ESSENTIAL (PRIMARY) HYPERTENSION 06/22/2016 BISI BUCK TACKER OFF Ot J44.9 CHRONIC OBSTRUCTIVE PULMONARY DISEASE, U 06/22/2016 BISI BUCK TACKER OFF Ot N39.0 URINARY TRACT INFECTION, SITE NOT SPECIF 06/22/2016 BISI BUCK APRN Ot R10.31 RIGHT LOWER QUADRANT PAIN 06/22/2016 BISI BUCK TACKER OFF Ot 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 06/22/2016 BISI BUCK TACKER OFF Ot Z90.49 ACQUIRED ABSENCE OF OTHER SPECIFIED PART 06/22/2016 BISI BUCK TACKER OFF Ot Z90.710 ACQUIRED ABSENCE OF BOTH CERVIX AND UTER 06/22/2016 BISI BUCK TACKER OFF Ot Z90.89 ACQUIRED ABSENCE OF OTHER ORGANS 06/22/2016 BISI BUCK TACKER OFF Ot E11.9 TYPE 2 DIABETES MELLITUS WITHOUT COMPLIC 06/22/2016 BISI BUCK TACKER OFF Ot F41.9 ANXIETY DISORDER, UNSPECIFIED 06/22/2016 BISI BUCK TACKER OFF Ot I10 ESSENTIAL (PRIMARY) HYPERTENSION 06/22/2016 BISI BUCK APRN Ot J44.9 CHRONIC OBSTRUCTIVE PULMONARY DISEASE, U 06/22/2016 BISI BUCK APRN Ot N39.0 URINARY TRACT INFECTION, SITE NOT SPECIF 06/22/2016 BISI BUCK APRN Ot R10.31 RIGHT LOWER QUADRANT PAIN 06/22/2016 BISI BUCK APRN Ot Z79.899 OTHER LONGTERM (CURRENT) DRUG THERAPY 06/22/2016 BISI BUCK TACKER OFF Ot Z90.49 ACQUIRED ABSENCE OF OTHER SPECIFIED PART 06/22/2016 BISI BUCK TACKER OFF Ot Z90.710 ACQUIRED ABSENCE OF BOTH CERVIX AND UTER 06/22/2016 BISI BUCK TACKER OFF Ot Z90.89 ACQUIRED ABSENCE OF OTHER ORGANS [...] AND RECTUM 07/24/2016 ARUN CABRERA MD, Ot K62.5 HEMORRHAGE OF ANUS AND RECTUM 07/24/2016 ARUN CABRERA MD, Ot K62.89 OTHER SPECIFIED DISEASES OF ANUS AND REC 07/24/2016 ARUN CABREAR MD, Ot Z01.818 ENCOUNTER FOR OTHER PREPROCEDURAL [...] ARUN CABRERA MD, Ot K64.8 OTHER HEMORRHOIDS 12/21/2016 BRIONNA HARLEY MD, Ot E03.9 HYPOTHYROIDISM, UNSPECIFIED 12/21/2016 BRIONNA HARLEY MD, Ot E11.9 TYPE 2 DIABETES MELLITUS WITHOUT COMPLIC 12/21/2016 BRIONNA HARLEY MD, Ot I10 ESSENTIAL (PRIMARY) HYPERTENSION 12/21/2016 BRIONNA HARLEY MD, Ot J44.9 CHRONIC OBSTRUCTIVE PULMONARY DISEASE, U 12/21/2016 BRIONNA HARLEY MD, Ot N39.0 URINARY TRACT INFECTION, SITE NOT SPECIF 12/21/2016 BRIONNA HARLEY MD, Ot R44.0 AUDITORY HALLUCINATIONS 12/21/2016 BRIONNA HARLEY MD, Ot R45.851 SUICIDAL IDEATIONS 12/21/2016 BRIONNA HARLEY MD, Ot 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 Procedures Code [place] [address] MEASURE BLOOD OXYGEN LEVEL 06/28/2012 14318 ROUTINE VENIPUNCTURE 04/24/2013 83523 CBC 04/24/2013 [id number] GFR CALC (RESULT ONLY) 04/24/2013 23825 CMP 04/24/2013 64553 LIPID PANEL 04/24/2013 16787 CULTURE URINE 06/20/2013 45567 UA LONG DIP 06/20/2013 99133 XRAY HAND RIGHT MIN 3 VIEWS 11/14/2013 82381 MAMMOGRAM DX, STEFFANIE 11/14/2013 50572 ROUTINE VENIPUNCTURE 02/05/2014 92235 CBC 02/05/2014 41347 CMP 02/05/2014 35795 LIPID PANEL 02/05/2014 [id number] GFR CALC (RESULT ONLY) 02/05/2014 28313 UA LONG DIP 08/27/2014 Results Test Result Range Complete blood count (CBC) with automated white blood cell (WBC) differential - 01/06/16 15:32 Blood leukocytes automated count (number/volume) 9.6 10*3/uL 4.3-11.0 Blood erythrocytes automated count (number/volume) 3.67 10*6/uL 4.35-5.85 Venous blood hemoglobin measurement (mass/volume) 11.5 [...] Automated blood platelet mean volume measurement 8.6 [foz_us] 7.4-10.4 Automated blood neutrophils/100 leukocytes 60 % [...] Serum or plasma sodium measurement (moles/volume) 140 mmol/L 135-145 Serum or plasma potassium measurement (moles/volume) 3.8 mmol/L 3.6-5.0 Serum or plasma chloride measurement (moles/volume) 105 mmol/L 98-107 Carbon dioxide 22 mmol/L 21-32 Serum or plasma anion gap determination (moles/volume) 13 mmol/L 5-14 Serum or plasma urea nitrogen measurement (mass/volume) 17 mg/dL 7-18 Serum or plasma creatinine measurement (mass/volume) 0.80 mg/dL 0.60-1.30 Serum or plasma urea nitrogen/creatinine mass [...] Urine pH measurement by test strip 7 5-9 Specific gravity of urine by test strip 1.010 1.016- 1.022 Urine protein assay by test strip, semi-quantitative [...] culture - 01/06/16 16:26 Bacterial urine culture [id number] NRG COLONY COUNT >100,000/ML NRG URINE CULTURE RESULTS <10,000/ML NRG Complete blood count (CBC) with automated white blood cell (WBC) differential - 01/07/16 06:12 Blood leukocytes automated count (number/volume) 8.2 10*3/uL 4.3-11.0 Blood erythrocytes automated count (number/volume) 3.45 10*6/uL 4.35-5.85 Venous blood hemoglobin measurement (mass/volume) 10.7 [...] Automated blood platelet mean volume measurement 8.4 [foz_us] 7.4-10.4 Automated blood neutrophils/100 leukocytes 63 % [...] Serum or plasma sodium measurement (moles/volume) 138 mmol/L 135-145 Serum or plasma potassium measurement (moles/volume) 4.0 mmol/L 3.6-5.0 Serum or plasma chloride measurement (moles/volume) 106 mmol/L 98-107 Carbon dioxide 20 mmol/L 21-32 Serum or plasma anion gap determination (moles/volume) 12 mmol/L 5-14 Serum or plasma urea nitrogen measurement (mass/volume) 11 mg/dL 7-18 Serum or plasma creatinine measurement (mass/volume) 0.72 mg/dL 0.60-1.30 Serum or plasma urea nitrogen/creatinine mass [...] 17:15 Blood leukocytes automated count (number/volume) 17.4 10*3/uL 4.3-11.0 Blood erythrocytes automated count (number/volume) 4.11 10*6/uL 4.35-5.85 Venous blood hemoglobin measurement (mass/volume) 12.7 [...] Automated blood platelet mean volume measurement 8.4 [foz_us] 7.4-10.4 Automated blood neutrophils/100 leukocytes 63 % [...] NRG Blood erythrocyte morphology finding identification NORMAL [facility] Comprehensive metabolic panel - 06/19/16 17:15 Serum or plasma sodium measurement (moles/volume) 141 mmol/L 135-145 Serum or plasma potassium measurement (moles/volume) 4.0 mmol/L 3.6-5.0 Serum or plasma chloride measurement (moles/volume) 106 mmol/L 98-107 Carbon dioxide 19 mmol/L 21-32 Serum or plasma anion gap determination (moles/volume) 16 mmol/L 5-14 Serum or plasma urea nitrogen measurement (mass/volume) 13 mg/dL 7-18 Serum or plasma creatinine measurement (mass/volume) 1.01 mg/dL 0.60-1.30 Serum or plasma urea nitrogen/creatinine mass [...] Urine pH measurement by test strip 5 5-9 Specific gravity of urine by test strip 1.025 1.016- 1.022 Urine protein assay by test strip, semi-quantitative [...] culture - 06/19/16 19:14 Bacterial urine culture [id number] NRG COLONY COUNT >100,000/ML NRG FTX;REPORTABLE MIXED COLONY GROWTH NRG Capillary blood glucose measurement by glucometer (mass/volume) - 07/13/16 09: 46 Capillary blood glucose measurement by glucometer (mass/volume) 105 mg/dL 70-110 Complete urinalysis with reflex to culture - 12/18/16 02:37 Urine color determination YELLOW NRG Urine clarity determination VERY CLOUDY NRG Urine pH measurement by test strip 5 5-9 Specific gravity of urine by test strip 1.025 1.016- 1.022 Urine protein assay by test strip, semi-quantitative 1+ NEGATIVE Urine glucose detection by automated test strip NEGATIVE NEGATIVE Erythrocytes detection in urine sediment by light microscopy 1+ NEGATIVE Urine ketones detection by automated test strip NEGATIVE NEGATIVE Urine nitrite detection by test strip NEGATIVE NEGATIVE Urine total bilirubin detection by test strip NEGATIVE NEGATIVE Urine urobilinogen measurement by automated test strip (mass/volume) NORMAL NORMAL Urine leukocyte esterase detection by dipstick 2+ NEGATIVE Automated urine sediment erythrocyte count by microscopy (number/high power field) [HPF] NRG Automated urine sediment leukocyte count by microscopy (number/high power field ) [HPF] NRG Bacteria detection in urine sediment by light microscopy LARGE NRG Squamous epithelial cells detection in urine sediment by light microscopy 2-5 NRG Crystals detection in urine sediment by light microscopy NONE NRG Casts detection in urine sediment by light microscopy NONE NRG Mucus detection in urine sediment by light microscopy SMALL NRG Complete urinalysis with reflex to culture YES NRG Urine drug screening test - 12/18/16 02:37 Urine phencyclidine detection by screening method NEGATIVE [...] NEGATIVE NEGATIVE Urine propoxyphene detection NEGATIVE NEGATIVE Bacterial urine culture - 12/18/16 02:37 Bacterial urine culture [id number] NRG COLONY COUNT 10,000/ML - 100,000/ML NRG FTX;REPORTABLE PLUS MIXED GRAM POSITIVES NRG FREE TEXT ENTRY 2 <10,000/ML NRG Bacterial susceptibility panel - 12/18/16 02:37 Gentamicin susceptibility test by minimum inhibitory concentration < = NRG Trimethoprim/sulfamethoxazole susceptibility test by minimum inhibitoryconcentration >= NRG Ampicillin susceptibility test by minimum inhibitory concentration > = NRG Tobramycin susceptibility test by minimum inhibitory concentration < = NRG Cefazolin susceptibility test by minimum inhibitory concentration < = NRG Ceftriaxone susceptibility test by minimum inhibitory concentration <= NRG Ampicillin/sulbactam susceptibility test by minimum inhibitory concentration 16 NRG Piperacillin/tazobactam susceptibility test by minimum inhibitory concentration <= NRG Ciprofloxacin susceptibility test by minimum inhibitory concentration <= NRG Meropenem susceptibility test by minimum inhibitory concentration < = NRG Nitrofurantoin susceptibility test by minimum inhibitory concentration <= NRG Aztreonam susceptibility test by minimum inhibitory concentration < = NRG Extended spectrum beta lactamase (ESBL) producing bacteria susceptibility test by minimum inhibitory concentration - NRG Complete blood count (CBC) with automated white blood cell (WBC) differential - 12/18/16 03:09 Blood leukocytes automated count (number/volume) 10.4 10*3/uL 4.3-11.0 Blood erythrocytes automated count (number/volume) 4.16 10*6/uL 4.35-5.85 Venous blood hemoglobin measurement (mass/volume) 12.6 g/dL 11.5-16.0 Blood hematocrit (volume fraction) 37 % 35-52 Automated erythrocyte mean corpuscular volume 90 [foz_us] 80-99 Automated erythrocyte mean corpuscular hemoglobin (mass per erythrocyte) 30 pg 25-34 Automated erythrocyte mean corpuscular hemoglobin concentration measurement ( mass/volume) 34 g/dL 32-36 Automated erythrocyte distribution width ratio 13.6 % 10.0-14.5 Automated blood platelet count (count/volume) 272 10*3/uL 130-400 Automated blood platelet mean volume measurement 8.5 [foz_us] 7.4-10.4 Automated blood neutrophils/100 leukocytes 65 % 42-75 Automated blood lymphocytes/100 leukocytes 25 % 12-44 Blood monocytes/100 leukocytes 7 % 0-12 Automated blood eosinophils/100 leukocytes 2 % 0-10 Automated blood basophils/100 leukocytes 1 % 0-10 Blood neutrophils automated count (number/volume) 6.8 10*3 1.8-7.8 Blood lymphocytes automated count (number/volume) 2.6 10*3 1.0-4.0 Blood monocytes automated count (number/volume) 0.7 10*3 0.0-1.0 Automated eosinophil count 0.2 10*3/uL 0.0-0.3 Automated blood basophil count (count/volume) 0.1 10*3/uL 0.0-0.1 Comprehensive metabolic panel - 12/18/16 03:09 Serum or plasma sodium measurement (moles/volume) 141 mmol/L 135-145 Serum or plasma potassium measurement (moles/volume) 4.0 mmol/L 3.6-5.0 Serum or plasma chloride measurement (moles/volume) 106 mmol/L 98-107 Carbon dioxide 16 mmol/L 21-32 Serum or plasma anion gap determination (moles/volume) 19 mmol/L 5-14 Serum or plasma urea nitrogen measurement (mass/volume) 14 mg/dL 7-18 Serum or plasma creatinine measurement (mass/volume) 0.73 mg/dL 0.60-1.30 Serum or plasma urea nitrogen/creatinine mass ratio 19 NRG Serum or plasma creatinine measurement with calculation of estimated glomerular filtration rate > NRG Serum or plasma glucose measurement (mass/volume) 103 mg/dL 70-105 Serum or plasma calcium measurement (mass/volume) 9.6 mg/dL 8.5-10.1 Serum or plasma total bilirubin measurement (mass/volume) 0.3 mg/dL 0.1-1.0 Serum or plasma alkaline phosphatase measurement (enzymatic activity/volume) 62 U/L 40-136 Serum or plasma aspartate aminotransferase measurement (enzymatic activity/ volume) 19 U/L 5-34 Serum or plasma alanine aminotransferase measurement (enzymatic activity/volume ) 23 U/L 0-55 Serum or plasma protein measurement (mass/volume) 8.2 g/dL 6.4-8.2 Serum or plasma albumin measurement (mass/volume) 4.4 g/dL 3.2-4.5 Serum or plasma thyroxine (T4) free measurement (mass/volume) - 12/18/16 03:09 Serum or plasma thyroxine (T4) free measurement (mass/volume) 0.96 ng/dL 0.70-1.48 Serum or plasma thyrotropin measurement by detection limit <=0.05 miu/l (units/ volume) - 12/18/16 03:09 Serum or plasma thyrotropin measurement by detection limit <=0.05 miu/l (units/ volume) 6.06 u[iU]/mL 0.35-4.94 Serum or plasma ethanol measurement (mass/volume) - 12/18/16 03:09 Serum or plasma ethanol measurement (mass/volume) 41 mg/dL <10 Methicillin resistant Staphylococcus aureus (MRSA) screening culture - 11:19 Methicillin resistant Staphylococcus aureus (MRSA) screening culture NEG NRG Urine beta human chorionic gonadotropin (hCG) measurement - 12/21/16 10:05 Urine beta human chorionic gonadotropin (hCG) measurement NEGATIVE NEGATIVE Encounters ACCT No. Visit Date/Time Discharge Status Pt. Type Provider Facility Loc./Unit Complaint [id number] 08/27/2014 08:55:00 08/27/2014 23:59:59 CLS Outpatient EDUARDO GRUBER APRN [id number] 07/23/2014 10:13:00 07/23/2014 23:59:59 CLS Outpatient EDUARDO GRUBER APRN S [id number] 04/10/2014 08:19:00 04/10/2014 23:59:59 CLS Outpatient EDUARDO GRUBER APRN [id number] 02/05/2014 08:51:00 02/05/2014 23:59:59 CLS Outpatient EDUARDO GRUBER APRN S [id number] 11/14/2013 09:27:00 11/14/2013 23:59:59 CLS Outpatient BENTLEY SARABIA APRN [id number] 11/14/2013 08:46:00 11/14/2013 23:59:59 CLS Outpatient EDUARDO GRUBER APRN S [id number] 10/26/2013 16:57:00 10/26/2013 23:59:59 CLS Outpatient EDUARDO GRUBER APRN S [id number] 06/20/2013 08:26:00 06/20/2013 23:59:59 CLS Outpatient EDUARDO GRUBER APRN S [id number] 05/01/2013 09:33:00 05/01/2013 23:59:59 CLS Outpatient EDUARDO GRUBER APRN S [id number] 04/24/2013 09:37:00 04/24/2013 23:59:59 CLS Outpatient ELVIA RUIZ DO [id number] 12/19/2012 06:36:00 12/19/2012 23:59:59 CLS Outpatient CHRISS MENDEZ MD [id number] 06/27/2012 13:49:00 06/27/2012 23:59:59 CLS Outpatient [id number] 06/27/2012 13:49:00 06/27/2012 23:59:59 CLS Outpatient [id number] 12/18/2016 08:50:00 12/21/2016 11:15:00 DIS Inpatient BRIONNA HARLEY MD [facility] 4TH SUICIDE IDEATION;PENDING ADMIT TO [facility] [id number] 07/27/2016 09:45:00 07/27/2016 12:05:00 DIS Outpatient ARUN CABRERA MD [facility] ENDO RECTAL PAIN;RECTAL BLEEDING [id number] 07/23/2016 06:20:00 07/23/2016 17:02:00 DIS Outpatient ARUN CABRERA MD [facility] PREOP RECTAL PAIN; BLEEDING [id number] 07/13/2016 09:22:00 07/13/2016 12:05:00 DIS Outpatient ARUN CABRERA MD [facility] ENDO RECTAL BLEEDING [id number] 07/08/2016 09:22:00 07/08/2016 09:49:00 DIS Outpatient ARUN CABRERA MD [facility] PREOP RECTAL BLEEDING [id number] 06/19/2016 19:12:00 06/19/2016 21:25:00 DIS Emergency BISI BUCK APRN [facility] ER RECTAL BLEEDING, PAIN [id number] 04/06/2016 10:55:00 04/06/2016 23:59:59 CLS Outpatient ARUN CABRERA MD [facility] RAD CELLULITIS [id number] 03/31/2016 08:46:00 03/31/2016 16:00:00 DIS Outpatient TONI MA MD [facility] WOUNDCARE [id number] 01/06/2016 20:30:00 01/07/2016 16:22:00 DIS Inpatient RUIZ ELVIA ABRAHAM Ronnie [facility] 4TH RLQ ABD PAIN,N/V,UTI [id number] 08/20/2015 13:13:00 08/21/2015 10:30:00 DIS Inpatient SHIVA MEREDITH MD [facility] 4TH INTRACTABLE VERTIGO HYPERTENSIVE URGENCY [id number] 02/11/2015 19:27:00 02/11/2015 21:00:00 DIS Emergency BISI BUCK TACKER OFF [facility] ER POSS FOREIGN BODY [id number] 11/26/2014 09:55:00 11/26/2014 10:47:00 DIS Emergency LARRY ELIGIO ABRAHAM [facility] ER RASH [id number] 10/24/2014 08:39:00 10/24/2014 11:11:00 DIS Emergency NURA GOODSON MD [facility] ER SCABIES [id number] 10/10/2014 08:50:00 10/10/2014 09:24:00 DIS Emergency VLADIMIR MARK DO [facility] ER RASH [id number] 03/21/2014 14:10:00 03/21/2014 15:45:00 DIS Emergency BISI BUCK APRN [facility] ER ABD PAIN [id number] 03/03/2014 13:44:00 03/03/2014 17:01:00 DIS Emergency BISI BUCK APRN [facility] ER R SIDE LOWER ABD PAIN [id number] 11/28/2013 11:21:00 11/28/2013 23:59:59 CLS Outpatient BENTLEY SARABIA TACKER OFF [facility] RAD RT NIPPLE INVERTED, DISCOLORATION [id number] 10/24/2013 16:35:00 10/24/2013 16:58:00 DIS Emergency BISI BUCK APRN [facility] ER RASH [id number] 08/14/2013 10:40:00 08/14/2013 11:15:00 DIS Emergency VLADIMIR MARK DO [facility] ER SWOLLEN FINGER RING STUCK [id number] 11/23/2012 13:52:00 11/30/2012 10:52:00 DIS Outpatient RENETTA NEW MD [facility] ACUTE ABD PAIN [id number] 03/21/2014 17:14:00 Document Registration [id number] 03/21/2014 17:14:00 Document Registration [id number] 03/21/2014 17:14:00 Document Registration [id number] 03/21/2014 17:14:00 Document Registration [id number] 06/20/2012 09:23:00 Document Registration [id number] 05/09/2012 07:52:00 Document Registration [id number] 12/11/2011 22:50:00 Document Registration [id number] 08/24/2011 22:14:00 Document Registration [id number] 2010 20:37:00 Document Registration [id number] 09/19/2010 20:35:00 Document Registration [id number] 07/01/2010 23:57:00 Document Registration
[2017-05-14 10:27] LABS: BASOPHILS % (AUTO) 0 % (0-10); EOSINOPHILS # (AUTO) 0.1 10^3/uL (0.0-0.3); EOSINOPHILS % (AUTO) 1 % (0-10); HEMATOCRIT 38 % (35-52); HEMOGLOBIN 13.1 G/DL (11.5-16.0); LYMPHOCYTES # (AUTO) 2.1 X 10^3 (1.0-4.0); LYMPHOCYTES % (AUTO) 19 % (12-44); MEAN CORPUSCULAR HEMOGLOBIN 30 PG (25-34); MEAN CORPUSCULAR HGB CONC 35 G/DL (32-36); MEAN CORPUSCULAR VOLUME 87 FL (80-99); MEAN PLATELET VOLUME 8.5 FL (7.4-10.4); MONOCYTES # (AUTO) 0.5 X 10^3 (0.0-1.0); MONOCYTES % (AUTO) 5 % (0-12); NEUTROPHILS # (AUTO) 8.4 X 10^3 (1.8-7.8); NEUTROPHILS % (AUTO) 75 % (42-75); PLATELET COUNT 278 10^3/uL (130-400); RED BLOOD COUNT 4.33 10^6/uL (4.35-5.85); RED CELL DISTRIBUTION WIDTH 13.1 % (10.0-14.5); WHITE BLOOD COUNT 11.2 10^3/uL (4.3-11.0)
[2017-05-14 10:46] LABS: ALANINE AMINOTRANSFERASE 29 U/L (0-55); ALBUMIN 4.3 GM/DL (3.2-4.5); ALKALINE PHOSPHATASE 66 U/L (40-136); BILIRUBIN,TOTAL 0.4 MG/DL (0.1-1.0); BUN/CREATININE RATIO 17; CALCIUM 9.3 MG/DL (8.5-10.1); CARBON DIOXIDE 25 MMOL/L (21-32); CHLORIDE 104 MMOL/L (98-107); CREATININE SERUM 0.81 MG/DL (0.60-1.30); GFR ESTIMATED > 60; GLUCOSE 118 MG/DL (70-105); POTASSIUM 4.3 MMOL/L (3.6-5.0); SODIUM 141 MMOL/L (135-145); TOTAL PROTEIN 8.1 GM/DL (6.4-8.2)
--- NOTE | 2017-05-14 10:50 | Diagnostic Imaging Report ---
INDICATION: Chest pain COMPARISON 11/28/2012. FINDINGS: Upright portable view of the chest is obtained. Heart size is normal. The pulmonary vessels appear unremarkable. There is no pneumothorax, mediastinal widening or pleural fluid demonstrated. The lungs are clear. IMPRESSION: No acute abnormality is demonstrated. Dictated by: Dictated on workstation # [id number]
--- NOTE | 2017-05-14 10:59 | ED General ---
General Chief Complaint: Cough/Cold/Flu Symptoms Stated Complaint: FLU Nursing Triage Note: TO ED PER EMS COUGH CONGESTION WITH VOMITING FOR 2 WEEKS. DUO NEB BEING GIVEN BY EMS Nursing Sepsis Screen: No Definite Risk Source of Information: Patient History of Present Illness Time Seen by Provider: 10:56 Initial Comments The patient is a 56-year-old white female who presents by ambulance as she had no other transportation. She reports that she has had a harsh cough for the past 2 weeks. In addition she has had vomiting and diarrhea. She reports that there is chest pain with coughing. She has taken no home remedies. Timing/Duration: Other Severity: Moderate Associated Systoms: Cough, Nausea/Vomiting Allergies and Home Medications Allergies Coded Allergies: Penicillins (Verified Allergy, Unknown, 08/20/15) tuberculin, purified protein deriva (Verified Adverse Reaction, Mild, 08/19) Home Medications Albuterol Sulfate 8.5 Gm Hfa.aer.ad, 2 PUFF INH Q6H PRN for SHORTNESS OF BREATH, (Reported) Cetirizine HCl 10 Mg Tablet, 10 MG PO DAILY, (Reported) Dicyclomine HCl 20 Mg Tablet, 20 MG PO BID, (Reported) Levothyroxine Sodium 50 Mcg Tablet, 50 MCG PO DAILY@0630 for 30 Days Prescribed by: MANI THORNTON on 12/21/16 0948 Montelukast Sodium 10 Mg Tablet, 10 MG PO HS, (Reported) Nitrofurantoin Monohyd/M-Cryst 100 Mg Capsule, 1 TAB PO BID, #14 Prescribed by: MANI THORNTON on 12/21/1648 Propranolol HCl 60 Mg Tablet, 60 MG PO BID, (Reported) Sertraline HCl 50 Mg Tablet, 50 MG PO DAILY, (Reported) Constitutional: see HPI EENTM: hoarseness, nose congestion Respiratory: cough, short of breath Cardiovascular: no symptoms reported Gastrointestinal: diarrhea, nausea, vomiting : No Musculoskeletal: no symptoms reported Skin: no symptoms reported Psychiatric/Neurological: No Symptoms Reported Hematologic/Lymphatic: No Symptoms Reported Immunological/Allergic: no symptoms reported Past Nutrdpt-Lbycek-Jewyua Hx Patient Social History Alcohol Use: Denies Use Recreational Drug Use: No Smoking Status: Never a Smoker Recent Foreign Travel: No Contact w/Someone Who Travel: No Recent Infectious Disease Expo: No Recent Hopitalizations: No Immunizations Up To Date Tetanus Booster (TDap): Unknown Date of Pneumonia Vaccine: Feb 01, 2012 Date of Influenza Vaccine: Feb 01, 2016 Seasonal Allergies Seasonal Allergies: No Surgeries History of Surgeries: Yes (X2 C-SECT,TUBAL LIG.,APPY) Surgeries: Appendectomy, Section, Gallbladder, 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, Oophorectomy, 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 Respiratory History of Respiratory Disorde: Yes Respiratory Disorders: Asthma, Sleep Apnea, COPD Currently Using CPAP: Yes Currently Using BIPAP: No Cardiovascular History of Cardiac Disorders: Yes Cardiac Disorders: Hypertension, Syncope Neurological History of Neurological Disord: Yes Neurological Disorders: Headaches /Migraines, Seizure Disorder, Vertigo Reproductive System Hx Reproductive Disorders: Yes Sexually Transmitted Disease: No HIV/AIDS: No 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, 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 Genitourinary Genitourinary Disorders: UTI-Chronic Gastrointestinal History of Gastrointestinal Di: Yes (rectal pain and bleeding) Gastrointestinal Disorders: Ulcer Musculoskeletal History of Musculoskeletal Dis: Yes Musculoskeletal Disorders: Chronic Back Pain Endocrine History of Endocrine Disorders: Yes Endocrine Disorders: Diabetes, Non-Insulin dep HEENT HEENT Disorders: Tinnitis Loss of Vision: Denies Hearing Impairment: Denies Cancer History of Cancer: No Psychosocial History of Psychiatric Problem: Yes (EXTENSIVE PSYCH ISSUES, MULTIPLE PSYCH ADMITS, INCLUDING [place]) Behavioral Health Disorders: Anxiety, Suicide Attempts, Depression Integumentary History of Skin or Integumenta: No Blood Transfusions History of Blood Disorders: No Adverse Reaction to a Blood Tr: No Family Medical History Significant Family History: No Pertinent Family Hx Family Medial History: Congenital heart disease G8 SISTER (HOLE IN HEART ) Neoplasm 19 MOTHER (STOMACH ) G8 BROTHER (STOMACH) Physical Exam Vital Signs Vital Sign - Last 12Hours 05/14/17 08:06 Temp 99.5 Pulse 67 B/P (MAP) 166/119 (135) Pulse Ox 100 O2 Delivery Room Air Capillary Refill : Less Than 3 Seconds General Appearance: Mild Distress, Other (disheveled) Eyes: Bilateral Eye Normal Inspection HEENT: Normal ENT Inspection Neck: Normal Inspection Respiratory: Decreased Breath Sounds (distant) Cardiovascular: Regular Rate, Rhythm, No Edema, No Gallop, No JVD, No Murmur, Normal Peripheral Pulses Gastrointestinal: Normal Bowel Sounds, No Organomegaly, No Pulsatile Mass, Non Tender, Soft Back: Normal Inspection Extremity: Normal Capillary Refill, Normal Inspection, Normal Range of Motion, Non Tender, No Calf Tenderness, No Pedal Edema Neurologic/Psychiatric: Alert, Oriented x3, No Motor/Sensory Deficits, Normal Mood/Affect Skin: Normal Color, Warm/Dry Lymphatic: No Adenopathy Progress/Results/Core Measures Suspected Sepsis Recent Fever Within 48 Hours: No Infection Criteria Present: None New/Unexplained Altered Menta: No Sepsis Screen: No Definite Risk Sepsis Diagnosis: SIRS Temperature:99.5 Pulse: 67 Respiratory Rate: Laboratory Tests 05/14/17 10:19: White Blood Count 11.2H Blood Pressure 166 /119 Mean: 135 Laboratory Tests 05/14/17 10:19: Creatinine 0.81, Platelet Count 278, Total Bilirubin 0.4 Results/Orders Lab Results Laboratory Tests Test 05/14/17 10:19 05/14/17 11:33 Range/Units White Blood Count 11.2 H 4.3-11.0 10^3/uL Red Blood Count 4.33 L 4.35-5.85 10^6/uL Hemoglobin 13.1 11.5-16.0 G/DL Hematocrit 38 35-52 % Mean Corpuscular Volume 87 80-99 FL Mean Corpuscular Hemoglobin 30 25-34 PG Mean Corpuscular Hemoglobin Concent 35 32-36 G/DL Red Cell Distribution Width 13.1 10.0-14.5 % Platelet Count 278 130-400 10^3/uL Mean Platelet Volume 8.5 7.4-10.4 FL Neutrophils (%) (Auto) 75 42-75 % Lymphocytes (%) (Auto) 19 12-44 % Monocytes (%) (Auto) 5 0-12 % Eosinophils (%) (Auto) 1 0-10 % Basophils (%) (Auto) 0 0-10 % Neutrophils # (Auto) 8.4 H 1.8-7.8 X 10^3 Lymphocytes # (Auto) 2.1 1.0-4.0 X 10^3 Monocytes # (Auto) 0.5 0.0-1.0 X 10^3 Eosinophils # (Auto) 0.1 0.0-0.3 10^3/uL Basophils # (Auto) 0.0 0.0-0.1 10^3/uL Sodium Level 141 135-145 MMOL/L Potassium Level 4.3 3.6-5.0 MMOL/L Chloride Level 104 98-107 MMOL/L Carbon Dioxide Level 25 21-32 MMOL/L Anion Gap 12 5-14 MMOL/L Blood Urea Nitrogen 14 7-18 MG/DL Creatinine 0.81 0.60-1.30 MG/DL Estimat Glomerular Filtration Rate > 60 BUN/Creatinine Ratio 17 Glucose Level 118 H 70-105 MG/DL Calcium Level 9.3 8.5-10.1 MG/DL Total Bilirubin 0.4 0.1-1.0 MG/DL Aspartate Amino Transf (AST/SGOT) 18 5-34 U/L Alanine Aminotransferase (ALT/SGPT) 29 0-55 U/L Alkaline Phosphatase 66 40-136 U/L Total Protein 8.1 6.4-8.2 GM/DL Albumin 4.3 3.2-4.5 GM/DL My Orders Orders - NURA GOODSON MD Cbc With Automated Diff (05/14/17 09:45) Comprehensive Metabolic Panel (05/14/17 09:45) Ua Culture If Indicated (05/14/17 09:45) Chest 1 View, Ap/Pa Only (05/14/17 09:45) Ns Iv 1000 Ml (Sodium Chloride 0.9%) (05/14/17 11:00) Ondansetron Injection (Zofran Injectio (05/14/17 11:00) Vital Signs/I&O Vital Sign - Last 12Hours 05/14/17 08:06 Temp 99.5 Pulse 67 B/P (MAP) 166/119 (135) Pulse Ox 100 O2 Delivery Room Air Capillary Refill : Less Than 3 Seconds Blood Pressure Mean: 135 Departure Impression Impression: Primary Impression: Influenza-like symptoms Disposition: 01 HOME, SELF-CARE Condition: Stable/Unchanged Departure-Patient Inst. Decision time for Depature: 11:46 Referrals: ELVIA RUIZ DO (PCP) Primary Care Physician EDUARDO GRUBER (Family) Primary Care Physician Patient Instructions: Flu Add. Discharge Instructions: All discharge instructions reviewed with patient and/or family. Voiced understanding. Do not attempt to eat. Take liquids in small amounts frequently. 1 ounce is recommended as the beginning amount and repeat this every 15 minutes or so. Zofran ODT to control vomiting. Do not take food until you have gone 24 hours without vomiting. Scripts Ondansetron (Zofran Odt) 8 Mg Tab.rapdis 8 MG PO every 4 hours, #20 TAB Prov: NURA GOODSON MD 05/14/17 NURA GOODSON MD May 14, 2017 10:59
[2017-05-14] MEDS ORDERED: NS IV 1000 ML 1,000 ML IV SCH (11:00)
[2017-05-14 11:39] LABS: BILIRUBIN,URINE NEGATIVE (NEGATIVE); CLARITY,URINE CLEAR; COLOR,URINE YELLOW; GLUCOSE, URINE (UA) NEGATIVE (NEGATIVE); KETONES,URINE NEGATIVE (NEGATIVE); LEUKOCYTE ESTERASE ,URINE 1+ (NEGATIVE); NITRITE,URINE NEGATIVE (NEGATIVE); PH,URINE 5 (5-9); PROTEIN,URINE NEGATIVE (NEGATIVE); UROBILINOGEN,URINE NORMAL (NORMAL)
[2017-05-14] MEDS ORDERED: ONDA8TAB9 PO (11:48)
[2017-05-14 11:54] LABS: BACTERIA,URINE FEW /HPF
[2017-05-14] MEDS ORDERED: ONDANSETRON 4 MG (ZOFRAN) ORAL DISSOLVE TAB PO ONE (12:00)
[2017-05-14] MEDS: ONDANSETRON 4 MG/2 ML (SDV) Z0FRAN IVP ONE ×2 (12:04→12:05)
[2017-05-14 12:09] VITALS: BP 146/100
== END 2017-05-14 12:14 | disposition home or self-care (01) ==
LOC: EDUNIT# 08:06 → ER 08:08
DX: J11.1 Influenza due to unidentified influenza virus with other respiratory manifestations (principal); F41.9 Anxiety disorder, unspecified; F32.9 Major depressive disorder, single episode, unspecified; E11.9 Type 2 diabetes mellitus without complications; G43.909 Migraine, unspecified, not intractable, without status migrainosus; G40.909 Epilepsy, unspecified, not intractable, without status epilepticus; J44.9 Chronic obstructive pulmonary disease, unspecified; G47.30 Sleep apnea, unspecified; Z91.5 Personal history of self-harm; Z87.19 Personal history of other diseases of the digestive system; Z90.710 Acquired absence of both cervix and uterus; Z98.51 Tubal ligation status; Z87.59 Personal history of other complications of pregnancy, childbirth and the puerperium; Z90.49 Acquired absence of other specified parts of digestive tract
CPT/HCPCS: 36415; 71045; 80053; 81000; 85025; 87088; 99283

== ENCOUNTER 2017-10-22 10:04 | Emergency (ER) | payer MEDICAID ==
[~2017-10-22] VITALS: Ht 157.5 cm; Wt 72.6 kg
[~2017-10-22 10:04] MED LIST changes: +NAPR-915 PO; -NAPR500T4 PO; +ONDA8TAB9 PO
[2017-10-22] MEDS ORDERED: fentaNYL INJECTION 100 MCG/2 ML AMP IVP STA (10:25)
[2017-10-22] MEDS ORDERED: NS IV 1000 ML 1,000 ML IV STA (10:25)
[2017-10-22] MEDS ORDERED: ONDANSETRON 4 MG/2 ML (SDV) Z0FRAN IVP ONE ×2 (10:30→11:30)
[2017-10-22 10:31] LABS: BASOPHILS % (AUTO) 0 % (0-10); EOSINOPHILS # (AUTO) 0.1 10^3/uL (0.0-0.3); EOSINOPHILS % (AUTO) 2 % (0-10); HEMATOCRIT 38 % (35-52); HEMOGLOBIN 13.1 G/DL (11.5-16.0); LYMPHOCYTES # (AUTO) 1.8 X 10^3 (1.0-4.0); LYMPHOCYTES % (AUTO) 22 % (12-44); MEAN CORPUSCULAR HEMOGLOBIN 31 PG (25-34); MEAN CORPUSCULAR HGB CONC 35 G/DL (32-36); MEAN CORPUSCULAR VOLUME 90 FL (80-99); MEAN PLATELET VOLUME 8.3 FL (7.4-10.4); MONOCYTES # (AUTO) 0.4 X 10^3 (0.0-1.0); MONOCYTES % (AUTO) 4 % (0-12); NEUTROPHILS % (AUTO) 72 % (42-75); PLATELET COUNT 263 10^3/uL (130-400); RED CELL DISTRIBUTION WIDTH 13.6 % (10.0-14.5); WHITE BLOOD COUNT 8.3 10^3/uL (4.3-11.0)
--- NOTE | 2017-10-22 10:51 | ED Abdominal Pain ---
General Chief Complaint: Abdominal/GI Problems Stated Complaint: V/D/DIZZINESS Nursing Triage Note: pt reports middle upper abdominal pain x 3 days. reports n/v/d. Sepsis Screen: No Definite Risk Source of Information: Patient, EMS Exam Limitations: No Limitations History of Present Illness Date Seen by Provider: Oct 22, 2017 Time Seen by Provider: 10:06 Initial Comments Here with report of upper abdominal pain for the last 3 days. She has had 2 episodes of vomiting today and has persistent nausea. She has had some diarrhea. States that her abdomen is distending and becoming quite painful. Here by EMS. She has difficult IV access and EMS was unable to get IV. Pain is reported as burning and persistent. Does have history of reflux disease and takes medication for that. She was able to get her medicines down today including omeprazole. Timing/Duration: 3-4 Days Severity/Quality: Burning Location: RUQ, LUQ, Epigastric Radiation: RLQ, LLQ Activities at Onset: None Modifying Factors: Worsens With Eating, Worsens With Movement Associated Symptoms: No Back Pain, No Chest Pain, No Fever/Chills; Nausea/ Vomiting; No Shortness of Air, No Weakness Allergies and Home Medications Allergies Coded Allergies: Penicillins (Verified Allergy, Unknown, 08/20/15) tuberculin, purified protein deriva (Verified Adverse Reaction, Mild, 08/19) Home Medications Albuterol Sulfate 8.5 Gm Hfa.aer.ad, 2 PUFF INH Q6H PRN for SHORTNESS OF BREATH, (Reported) Cetirizine HCl 10 Mg Tablet, 10 MG PO DAILY, (Reported) Dicyclomine HCl 20 Mg Tablet, 20 MG PO BID, (Reported) Levothyroxine Sodium 50 Mcg Tablet, 50 MCG PO DAILY@0630 Prescribed by: MANI THORNTON on 12/21/16 0948 Montelukast Sodium 10 Mg Tablet, 10 MG PO HS, (Reported) Nitrofurantoin Monohyd/M-Cryst 100 Mg Capsule, 1 TAB PO BID Prescribed by: MANI THORNTON on 12/21/16 0948 Ondansetron 8 Mg Tab.rapdis, 8 MG PO every 4 hours Prescribed by: NURA GOODSON on 05/14/17 1148 Propranolol HCl 60 Mg Tablet, 60 MG PO BID, (Reported) Sertraline HCl 50 Mg Tablet, 50 MG PO DAILY, (Reported) Patient Home Medication List Home Medication List Reviewed: Yes Review of Systems Constitutional: see HPI; No chills, No fever EENTM: No Symptoms Reported Respiratory: No Symptoms Reported Cardiovascular: No Symptoms Reported Gastrointestinal: See HPI, Abdominal Pain, Diarrhea, Nausea; Denies Rectal Bleeding; Vomiting Genitourinary: No Symptoms Reported Musculoskeletal: no symptoms reported Skin: no symptoms reported All Other Systems Reviewed Negative Unless Noted: Yes Past Loadowr-Dzxano-Mlxasg Hx Past Med/Social Hx: Reviewed Nursing Past Med/Soc Hx Patient Social History Alcohol Use: Denies Use Recreational Drug Use: No Smoking Status: Never a Smoker Recent Foreign Travel: No Contact w/Someone Who Travel: No Recent Infectious Disease Expo: No Recent Hopitalizations: No Physical Abuse: No Sexual Abuse: No Mistreated: No Fear: No Immunizations Up To Date Tetanus Booster (TDap): Unknown Date of Pneumonia Vaccine: Feb 01, 2012 Date of Influenza Vaccine: Feb 01, 2016 Seasonal Allergies Seasonal Allergies: No Past Medical History Surgeries: Yes (X2 C-SECT,TUBAL LIG.,APPY) Appendectomy, Section, Gallbladder, 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, Oophorectomy, 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 Respiratory: Yes Asthma, Sleep Apnea, COPD Currently Using CPAP: Yes Currently Using BIPAP: No Cardiac: Yes Hypertension, Syncope Neurological: Yes Headaches /Migraines, Seizure Disorder, Vertigo Reproductive Disorders: Yes 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, 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 Sexually Transmitted Disease: No HIV/AIDS: No Genitourinary: No UTI-Chronic Gastrointestinal: Yes (rectal pain and bleeding) Gastroesophageal Reflux, Ulcer Musculoskeletal: Yes Chronic Back Pain Endocrine: Yes Diabetes, Non-Insulin dep Tinnitis Loss of Vision: Denies Hearing Impairment: Denies Cancer: No Psychosocial: Yes (EXTENSIVE PSYCH ISSUES, MULTIPLE PSYCH ADMITS, INCLUDING [place]) Anxiety, Suicide Attempts, Depression Nursing Suicide Risk Score: 0 Integumentary: No Blood Disorders: No Adverse Reaction/Blood Tranf: No Family Medical History Reviewed Nursing Family Hx Congenital heart disease G8 SISTER (HOLE IN HEART ) Neoplasm 19 MOTHER (STOMACH ) G8 BROTHER (STOMACH) No Pertinent Family Hx Physical Exam Vital Signs Vital Signs - First Documented 10/22/17 10:37 Temp 97.4 Pulse 107 Resp 20 B/P (MAP) 202/74 (116) Pulse Ox 100 Capillary Refill : Less Than 3 Seconds General Appearance: WD/WN, moderate distress HEENT: PERRL/EOMI, pharynx normal Neck: full range of motion, supple Respiratory: lungs clear, normal breath sounds Cardiovascular: no murmur, tachycardia Peripheral Pulses: 2+ Dorsalis Pedis (R), 2+ Left Dors-Pedis (L), 2+ Radial Pulses (R), 2+ Radial Pulses (L) Gastrointestinal: abnormal bowel sounds (high-pitched hyperactive especially on the left), distended, tenderness (diffuse greatest in the upper portions) Extremities: non-tender, normal inspection Back: normal inspection, no CVA tenderness, no vertebral tenderness Neurologic/Psychiatric: alert, oriented x 3 Skin: normal color, warm/dry Progress/Results/Core Measures Results/Orders Lab Results Laboratory Tests Test 10/22/17 10:25 Range/Units White Blood Count 8.3 4.3-11.0 10^3/uL Red Blood Count 4.20 L 4.35-5.85 10^6/uL Hemoglobin 13.1 11.5-16.0 G/DL Hematocrit 38 35-52 % Mean Corpuscular Volume 90 80-99 FL Mean Corpuscular Hemoglobin 31 25-34 PG Mean Corpuscular Hemoglobin Concent 35 32-36 G/DL Red Cell Distribution Width 13.6 10.0-14.5 % Platelet Count 263 130-400 10^3/uL Mean Platelet Volume 8.3 7.4-10.4 FL Neutrophils (%) (Auto) 72 42-75 % Lymphocytes (%) (Auto) 22 12-44 % Monocytes (%) (Auto) 4 0-12 % Eosinophils (%) (Auto) 2 0-10 % Basophils (%) (Auto) 0 0-10 % Neutrophils # (Auto) 6.0 1.8-7.8 X 10^3 Lymphocytes # (Auto) 1.8 1.0-4.0 X 10^3 Monocytes # (Auto) 0.4 0.0-1.0 X 10^3 Eosinophils # (Auto) 0.1 0.0-0.3 10^3/uL Basophils # (Auto) 0.0 0.0-0.1 10^3/uL Sodium Level 141 135-145 MMOL/L Potassium Level 3.4 L 3.6-5.0 MMOL/L Chloride Level 104 98-107 MMOL/L Carbon Dioxide Level 25 21-32 MMOL/L Anion Gap 12 5-14 MMOL/L Blood Urea Nitrogen 11 7-18 MG/DL Creatinine 0.81 0.60-1.30 MG/DL Estimat Glomerular Filtration Rate > 60 BUN/Creatinine Ratio 14 Glucose Level 138 H 70-105 MG/DL Calcium Level 9.7 8.5-10.1 MG/DL Total Bilirubin 0.6 0.1-1.0 MG/DL Aspartate Amino Transf (AST/SGOT) 23 5-34 U/L Alanine Aminotransferase (ALT/SGPT) 31 0-55 U/L Alkaline Phosphatase 60 40-136 U/L C-Reactive Protein High Sensitivity 1.08 H 0.00-0.50 MG/DL Total Protein 8.0 6.4-8.2 GM/DL Albumin 4.6 H 3.2-4.5 GM/DL My Orders Orders - MARY ALCALA MD Cbc With Automated Diff (10/22/17 10:25) Comprehensive Metabolic Panel (10/22/17 10:25) Hs C Reactive Protein (10/22/17 10:25) Ua Culture If Indicated (10/22/17 10:25) Fentanyl Injection (Sublimaze Injection (10/22/17 10:25) Ondansetron Injection (Zofran Injectio (10/22/17 10:30) Ns Iv 1000 Ml (Sodium Chloride 0.9%) (10/22/17 10:25) Saline Lock/Iv-Start (10/22/17 10:25) Ct Abdomen/Pelvis W (10/22/17 10:57) Hydromorphone Injection (Dilaudid Inje (10/22/17 10:57) Pantoprazole Injection (Protonix Injecti (10/22/17 11:00) Iohexol Injection (Omnipaque 350 Mg/Ml 1 (10/22/17 11:30) Sodium Chloride Flush (Catheter Flush Sy (10/22/17 11:30) Ns (Ivpb) (Sodium Chloride 0.9% Ivpb Bag (10/22/17 11:30) Ondansetron Injection (Zofran Injectio (10/22/17 11:30) Hydromorphone Injection (Dilaudid Inje (10/22/17 12:15) Ranitidine Injection (Zantac Injection) (10/22/17 12:30) Saline Lock/Iv-Start (10/22/17 12:42) Ns Iv 1000 Ml (Sodium Chloride 0.9%) (10/22/17 12:42) Lidocaine 2% Viscous 15 Ml (Xylocaine Vi (10/22/17 12:45) Antacid Suspension (Mylanta Suspension (10/22/17 12:45) Medications Given in ED Current Medications Medications Dose Ordered Sig/Anabel Route Start Time Stop Time Status Last Admin Dose Admin Al Hydrox/Mg Hydrox/Simethicone 30 ml ONCE ONCE PO 10/22/17 12:45 10/22/17 12:46 DC 10/22/17 13:52 30 ML Iohexol 100 ml ONCE ONCE IV 10/22/17 11:30 10/22/17 11:31 DC 10/22/17 12:02 40 ML Lidocaine HCl 15 ml ONCE ONCE PO 10/22/17 12:45 10/22/17 12:46 DC 10/22/17 13:52 15 ML Ondansetron HCl 4 mg ONCE ONCE IVP 10/22/17 10:30 10/22/17 10:31 DC 10/22/17 10:33 4 MG Ondansetron HCl 4 mg ONCE ONCE IVP 10/22/17 11:30 10/22/17 11:31 DC 10/22/17 11:30 4 MG Pantoprazole 40 mg ONCE ONCE IV 10/22/17 11:00 10/22/17 11:01 DC 10/22/17 11:06 40 MG Sodium Chloride 10 ml NEEDED PRN IV 10/22/17 11:30 10/22/17 12:02 10 ML Sodium Chloride 100 ml ONCE ONCE IV 10/22/17 11:30 10/22/17 11:31 DC 10/22/17 12:03 40 ML Vital Signs/I&O 10/22/17 10:37 Temp 97.4 Pulse 107 Resp 20 B/P (MAP) 202/74 (116) Pulse Ox 100 Blood Pressure Mean: 116 Progress Progress Note : Progress Note Seen and evaluated. IV initiated 2. Small caliber IV to the right antecubital space area by nursing and 20-gauge to the left distal bicep area by me via ultrasound guidance. Labs, normal saline 1 L bolus, fentanyl 75 g IV and Zofran 4 mg IV ordered. UA ordered. Anticipate CT scan pending creatinine study. CT scan ordered. IV infiltrated on one side prior to CT scan on the other side during CT. CT done essentially without contrast. Repeat IV done by me via ultrasound guidance to the right bicep using twin catheter. Dilaudid 1 mg IV and ranitidine 50 mg IV ordered. I did discuss the case with Dr. Sherwood at 1300. We will try GI cocktail. Labs and CT do not indicate any significant abnormalities. Certainly no obstruction nor free air noted. Patient will need follow-up with a surgeon and Dr. Sherwood will see her on Wednesday. 1415: Pain much improved. Patient is much better. No acute findings. Did discuss with her about follow-up with Dr. Sherwood Wednesday she will do that. She will call office for appointment. We will initiate Carafate until then. Discharged home with return precautions. Patient verbalize understanding instructions and agreement with plan. Diagnostic Imaging Diagonstic Imaging: CT Plain Films/CT/US/NM/MRI: abdomen, pelvis Comments VIA [facility]. [place], [place] NAME: LAVELLE RIVERS [facility] REC#: [id number] PT STATUS: REG ER : 1960 PHYSICIAN: MARY ALCALA MD ADMIT DATE: 10/22/17/ER Draft Date of Exam:10/22/17 CT ABDOMEN/PELVIS W PROCEDURE: CT abdomen and pelvis with contrast. TECHNIQUE: Multiple contiguous axial images were obtained through the abdomen and pelvis after administration of intravenous contrast. INDICATION: Nausea, vomiting and diarrhea as well as weakness for 3 days. Comparison is made with prior CT from 06/19/2016. The lung bases are clear. The heart does appear to be mildly enlarged. No discrete liver mass is identified. The gallbladder is surgically absent. No biliary ductal dilatation is seen. The pancreas and spleen are unremarkable. No adrenal mass is identified. The kidneys are unremarkable. Aorta is non-aneurysmal. The small and large bowel loops are of normal caliber. No obstruction is seen. There is no ascites. No inflammatory process is identified. The bladder is unremarkable. Uterus appears to be surgically absent. IMPRESSION: Essentially unremarkable CT of the abdomen and pelvis. No acute abnormality is detected. Dictated on workstation # [id number] Dict: 10/22/17 1208 Trans: 10/22/17 1212 [facility] [id number] Interpreted by: VANESSA ESQUIVEL MD Electronically signed by: Departure Impression Primary Impression: Upper abdominal pain Disposition: HOME, SELF-CARE Condition: Improved Departure-Patient Inst. Decision time for Depature: 14:27 Referrals: ELVIA RUIZ DO (PCP) Primary Care Physician EDUARDO GRUBER (Family) Primary Care Physician DANELLE SHERWOOD DO Patient Instructions: Acute Abdomen (Belly Pain), Adult (DC) Add. Discharge Instructions: All discharge instructions reviewed with patient and/or family. Voiced understanding. Take medications as directed. Follow-up with Dr. Sherwood on Wednesday. Call his office today for appointment or early Wednesday morning call for appointment for that day. Return for worse pain, fever, vomiting, weakness, breathing problems or other concerns as needed. Scripts Sucralfate (Carafate) 1 Gm Tablet 1 GM PO ACHS, #120 TAB 0 Refills Prov: MARY ALCALA MD 10/22/17 Copy Copies To 1: DANELLE SHERWOOD DO Copies To 2: ELVIA RUIZ TIMOTHY D MD Oct 22, 2017 10:51
[2017-10-22 10:55] LABS: ALANINE AMINOTRANSFERASE 31 U/L (0-55); ALBUMIN 4.6 GM/DL (3.2-4.5); ALKALINE PHOSPHATASE 60 U/L (40-136); BILIRUBIN,TOTAL 0.6 MG/DL (0.1-1.0); BUN/CREATININE RATIO 14; CALCIUM 9.7 MG/DL (8.5-10.1); CARBON DIOXIDE 25 MMOL/L (21-32); CHLORIDE 104 MMOL/L (98-107); CREATININE SERUM 0.81 MG/DL (0.60-1.30); GFR ESTIMATED > 60; GLUCOSE 138 MG/DL (70-105); POTASSIUM 3.4 MMOL/L (3.6-5.0); SODIUM 141 MMOL/L (135-145)
[2017-10-22] MEDS ORDERED: HYDROmorphone 1 MG/ML (DILAUDID) 1 ML SYRINGE IV STA ×2 (10:57→12:15)
[2017-10-22] MEDS ORDERED: PANTOPRAZOLE 40 MG/10 ML (PROTONIX) VIAL IV ONE (11:00)
[2017-10-22] MEDS ORDERED: IOHEXOL 350 MG/ML 100 ML (OMNIPAQUE 350) VIAL IV ONE (11:30)
[2017-10-22] MEDS ORDERED: CATHETER FLUSH 10 ML SYR IV PRN (11:30)
[2017-10-22] MEDS ORDERED: NS 100 ML (IVPB) BAG IV ONE (11:30)
--- NOTE | 2017-10-22 12:12 | Diagnostic Imaging Report ---
PROCEDURE: CT abdomen and pelvis with contrast. TECHNIQUE: Multiple contiguous axial images were obtained through the abdomen and pelvis after administration of intravenous contrast. INDICATION: Nausea, vomiting and diarrhea as well as weakness for 3 days. Comparison is made with prior CT from 06/19/2016. The lung bases are clear. The heart does appear to be mildly enlarged. No discrete liver mass is identified. The gallbladder is surgically absent. No biliary ductal dilatation is seen. The pancreas and spleen are unremarkable. No adrenal mass is identified. The kidneys are unremarkable. Aorta is non-aneurysmal. The small and large bowel loops are of normal caliber. No obstruction is seen. There is no ascites. No inflammatory process is identified. The bladder is unremarkable. Uterus appears to be surgically absent. IMPRESSION: Essentially unremarkable CT of the abdomen and pelvis. No acute abnormality is detected. Dictated by: Dictated on workstation # [id number]
[2017-10-22] MEDS ORDERED: raNItidine 50 MG/2 ML INJ (ZANTAC) IJ SCH (12:30)
[2017-10-22] MEDS ORDERED: NS IV 1000 ML 1,000 ML IV ONE (12:42)
[2017-10-22] MEDS ORDERED: ANTACID SUSP 30 ML UDC (MYLANTA) PO ONE (12:45)
[2017-10-22] MEDS ORDERED: LIDOCAINE 2% VISCOUS 15 ML UDC PO ONE (12:45)
[2017-10-22] MEDS ORDERED: SUCR1TAB36 PO (14:29)
[2017-10-22 14:39] VITALS: BP 156/100
== END 2017-10-22 14:39 | disposition home or self-care (01) ==
LOC: EDUNIT# 10:04 → ER 10:06
DX: R10.12 Left upper quadrant pain (principal); J44.9 Chronic obstructive pulmonary disease, unspecified; G47.30 Sleep apnea, unspecified; I10 Essential (primary) hypertension; G43.909 Migraine, unspecified, not intractable, without status migrainosus; E11.9 Type 2 diabetes mellitus without complications; G40.909 Epilepsy, unspecified, not intractable, without status epilepticus; F41.9 Anxiety disorder, unspecified; F32.9 Major depressive disorder, single episode, unspecified; K21.9 Gastro-esophageal reflux disease without esophagitis; Z79.51 Long term (current) use of inhaled steroids; Z87.59 Personal history of other complications of pregnancy, childbirth and the puerperium; Z98.51 Tubal ligation status; Z82.49 Family history of ischemic heart disease and other diseases of the circulatory system; Z80.0 Family history of malignant neoplasm of digestive organs; Z91.5 Personal history of self-harm; Z90.89 Acquired absence of other organs; Z87.440 Personal history of urinary (tract) infections; Z90.710 Acquired absence of both cervix and uterus; Z88.0 Allergy status to penicillin; Z87.19 Personal history of other diseases of the digestive system
CPT/HCPCS: 36415; 74177; 80053; 85025; 86141

== ENCOUNTER 2017-12-14 19:33 | Emergency (ER) | payer MEDICAID ==
[~2017-12-14] VITALS: Ht 157.5 cm; Wt 72.6 kg
[~2017-12-14 19:33] MED LIST changes: +SUCR1TAB36 PO
--- OUTSIDE RECORDS SUMMARY | 2017-12-14 19:39 | XMS REPORT ---
Author Author EDUARDO GRUBER [facility] Address [address] [place] [address] Care Team Providers Care Insulation Inspector Name Role Phone EDUARDO GRUBER Unavailable PROBLEMS Type Condition ICD9-CM Code NYZ65-UZ Code Onset Dates Condition Status SNOMED Code Problem Headache R51 Active 49511770 Problem Irritable bowel syndrome without diarrhea K58.9 Active 24629563 Problem Hypoxemia R09.02 Active 793378286 Problem Mixed hyperlipidemia E78.2 Active 359865590 Problem Asthma 493.90 Active 537522622 Problem Vaginitis N76.0 Active 40271793 Problem Primary insomnia F51.01 Active 0645320 Problem Acquired hypothyroidism E03.9 Active 092572361 Problem Hypertension I10 Active 01693703 Problem Unspecified asthma, uncomplicated J45.909 Active 54185583 Problem Psychosis, unspecified psychosis type F29 Active 91337717 Problem Allergic rhinitis, unspecified allergic rhinitis type J30.9 Active 27643060 ALLERGIES Substance Reaction Event Type Date Status Penicillin V Potassium Unknown Drug Allergy Aug, Active Hydrocodone-Acetaminophen Unknown Drug Allergy Aug, Active Cyclobenzaprine HCl Unknown Drug Allergy Aug, Active Cipro Unknown Drug Allergy Aug, Active Tramadol Unknown Drug Allergy Aug, Active ENCOUNTERS Encounter Location Date Diagnosis [place] [id number] [place] [id number] [place] [address] 67623- 9144 Oct, Primary insomnia F51.01 [place] [id number] [place] [address] 28432- 0872 11 Oct, 2017 Forgetfulness R68.89 ; Psychosis, unspecified psychosis type F29 ; Acquired hypothyroidism E03.9 ; Mixed hyperlipidemia E78.2 ; Hypertension I10 ; Encounter for immunization Z23 and Breast cancer screening by mammogram Z12.31 [place] [id number] [place] [address] 95682- 5940 Aug, Onychomycosis B35.1 [place] [address] [place] [address] [id number] [place] [address] 17598- 6591 Aug, Mixed hyperlipidemia E78.2 [facility] [address] [id number] [place] [address] 55039- 6251 Aug, Scabies B86 ; Allergic rhinitis, unspecified allergic rhinitis type J30.9 ; Primary insomnia F51.01 ; Dysuria R30.0 ; Psychosis, unspecified psychosis type F29 ; Acquired hypothyroidism E03.9 and Hypertension I10 [place] [address] 24228- 9237 May, Hypertension I10 [place] [address] [place] [id number] [place] [address] 84581- 9525 Apr, Unspecified asthma, uncomplicated J45.909 and Hypertension I10 [place] [address] [place] [address] [id number] [place] [address] 84962- 3529 Mar, Hypertension I10 [place] [address] [place] [address] [id number] [place] [address] 54229- 4824 Mar, Hypertension I10 ; Psychosis, unspecified psychosis type F29 ; Forgetfulness R68.89 and Encounter for immunization Z23 [place] [address] [place] [address] [id number] [place] [address] 75358- 4043 Mar, [facility] [address] [id number] [place] [address] 27396- 0017 Jan, [place] [address] [place] [address] [id number] [place] [address] 62400- 6984 Jan, Psychosis, unspecified psychosis type F29 [place] [address] [place] [address] [id number] [place] [address] 23493- 8836 Jan, [facility] [address] [id number] Dec, [facility] [address] 78482- 2607 Dec, Dizziness R42 [facility] [address] [id number] [place] [address] 53195- 7105 Oct, Hypertension I10 ; Allergic rhinitis, unspecified allergic rhinitis type J30.9 and Flea bite of multiple sites W57.XXXA [place] [address] [place] [address] [id number] [place] [address] 58654- 1740 August, [place] [address] 38771- 3404 August, Hypertension I10 ; Vertigo R42 ; Abdominal pain, acute, right lower quadrant R10.31 and Unspecified asthma, uncomplicated J45.909 [place] [address] [place] [address] [id number] [place] [address] 41574- 1181 Aug, Right lower quadrant abdominal pain R10.31 ; Irritable bowel syndrome without diarrhea K58.9 and Essential hypertension I10 [place] [address] [place] [address] [id number] [place] [address] 08624- 8726 Aug, [place] [address] [place] [address] [id number] [place] [address] 19662- 6067 Jul, [place] [address] [address] [id number] [place] [address] 83988- 7421 Jul, [place] [address] [address] [id number] [place] [address] 04874- 2576 Jul, [place] [address] [place] [address] [id number] [place] [address] 07078- 1702 Jul, [facility] [address] [id number] [place] [address] 93256- 2589 Jun, [place] [address] [place] [address] [id number] [place] [address] 97472- 3727 Jun, Abdominal pain, acute, right lower quadrant R10.31 [place] [address] [place] [address] [id number] [place] [address] 82983- 2554 Jun, [facility] [address] [address] 1580 Jun, [facility] [address] [id number] [place] [address] 38168- 7388 Jun, [facility] [address] [address]- 7694 Apr, [facility] [address] [id number] [place] [address] 08342- 7732 Apr, Decubitus skin ulcer, stage I L89.91 [facility] [address] [place] [address] 09341- 9074 Mar, [facility] [address] [address] Mar, Pressure ulcer, stage II L89.92 [facility] [address] [id number] [place] [address] 95281- 2569 Jan, Wound cellulitis L03.90 [facility] [address] [place] [address] 21824- 9815 Jan, [facility] [address] [id number] [place] [address] 92242- 6046 Dec, [facility] [address] [place] [address] 92782- 3898 Oct, Elevated blood pressure I10 and Allergic rhinitis, unspecified allergic rhinitis type J30.9 [facility] [address] [address]- 3316 August, [facility] [address] [id number] [place] [address] 92320- 6221 August, Right lower quadrant abdominal pain R10.31 and Essential hypertension I10 [facility] [address] [place] [address] 10528- 1599 August, [facility] [address] [id number] [place] [address] 08997- 7751 August, [facility] [address] [id number] [place] [address] 01183- 5421 Aug, [facility] [address] 00448- 5061 Aug, Hypertension I10 and Rash R21 [facility] [address] 49750- 6032 Aug, Gastritis K29.70 [facility] [address] 24291- 4907 Aug, [facility] [address] 04661- 6629 Aug, [facility] [address] 71655- 9378 Aug, [facility] [address] 67577- 5083 Aug, Rash R21 ; Vertigo R42 ; Gastritis K29.70 and Urination pain R30.9 [place] [address] 37384- 9398 Jul, [facility] [address] 70540- 3539 Jul, [facility] [address] [place] [address] [id number] [place] [address] 86464- 3608 Jul, Hypertension I10 [facility] [address] [place] [address] [id number] [place] [address] 45362- 0499 Jul, Headache R51 ; Hypertension I10 ; Vaginitis N76.0 and Hypoxemia R09.02 [facility] [address] 56658- 7520 May, [facility] [address] 54075- 0811 Apr, [facility] [address] 93797- 5292 Jan, Urinary tract infection, site unspecified N39.0 and Encounter for immunization Z23 [facility] [address] 77917- 3478 Jan, Allergic rhinitis 477.9 ; Abdominal pain 789.00 and Asthma 493.90 [facility] [address] 23382- 6640 Dec, [facility] [address] 25765- 1890 Dec, [facility] [address] 41136- 1786 Dec, Scabies 133.0 and Snoring 786.09 [facility] [address] 81523- 4324 Oct, Scabies 133.0 [facility] [address] 12845- 1280 Oct, [facility] [address] 69328- 1334 Oct, [facility] [address] 02370- 9075 August, Vertigo 780.4 ; Anxiety 300.00 ; Rash 782.1 and Abscess 682.9 [facility] [address] [place] [address] [id number] [place] [address] 84354- 1892 August, [facility] [address] 48135- 7059 Aug, [facility] [address] 66686- 8636 Aug, [facility] [address] 54913- 7169 Jul, [facility] [address] 72232- 3499 Jul, [facility] [place] [facility] [address] [id number] [place] [address]- 4350 Jul, [facility] [place] [facility] [address] [id number] [place] [address]- 0688 Jul, [facility] [place] [facility] [address] [id number] [place] [address]- 6274 Jun, [facility] [place] [facility] [address] [id number] [place] [address]- 6726 Jun, [facility] [place] [facility] [address] [id number] [place] [address]- 5126 May, [facility] [place] [facility] [address] [id number] [place] [address]- 2591 May, [facility] [place] [facility] [address] [id number] [place] [address]- 5495 Apr, [facility] [place] [facility] [address] [id number] [place] [address]- 3604 Apr, [facility] [place] [facility] [address] [id number] [place] [address]- 3604 Apr, [facility] [place] [facility] [address] [id number] [place] [address]- 9512 Apr, [facility] [place] [facility] [address] [id number] [address]- 6601 Mar, [facility] [place] [facility] [address] [id number] [address]- 4403 Mar, [facility] [place] [facility] [address] [id number] [place] [address]- 5592 Jan, [facility] [place] [facility] [address] [id number] [address]- 9667 Jan, [facility] [place] [facility] [address] [facility] [id number] [address]- 4815 Jan, [facility] [place] [facility] [address] [id number] [place] [address]- 0362 Jan, [facility] [place] [facility] [address] [id number] [place] [address]- 0554 Jan, [facility] [place] [facility] [address] [id number] [place] [address]- 1917 Jan, [facility] [place] [facility] [address] [id number] [place] [address]- 9589 Dec, [facility] [place] [facility] [address] [id number] [place] [address]- 3651 Dec, [facility] [place] [facility] [address] [id number] [place] [address]- 5989 Oct, [facility] [place] [facility] [address] [id number] [place] [address]- 6521 Oct, [facility] [place] [facility] [address] [id number] [place] [address]- 9335 Oct, [facility] [place] [facility] [address] [id number] [place] [address]- 2635 Oct, [facility] [place] [facility] [address] [id number] [place] [address]- 8539 Oct, [facility] [place] [facility] [address] [id number] [place] [address]- 4843 Oct, [facility] [place] [facility] [address] [id number] [place] [address]- 5475 Oct, [facility] [place] [facility] [address] [id number] [place] [address]- 7772 Oct, [facility] [place] [facility] [address] [id number] [place] 3406 Oct, [facility] [place] [facility] [address] [id number] [place] [address]- 0554 August, [facility] [place] [facility] [address] [id number] [place] 9067 August, [facility] [address] [id number] [place] [address]- 0753 Jun, [facility] [place] [facility] [address] [id number] [place] [address]- 7086 Jun, [facility] [place] [facility] [address] [id number] [place] [address]- 6376 Jun, [facility] [place] [facility] [address] [id number] [place] [address]- 2466 Jun, [facility] [address] [id number] [place] [address]- 4336 Jun, [facility] [place] [facility] [address] [id number] [place] [address]- 4016 Apr, [facility] [place] [facility] [address] [id number] [place] [address]- 9009 Apr, [facility] [place] [facility] [address] [id number] [place] [address]- 8185 Apr, [facility] [place] [facility] [address] [id number] [place] [address]- 3787 Apr, [facility] [place] [facility] [address] [facility] [id number] [place] [address]- 5851 Apr, [facility] [place] [facility] [address] [id number] [place] [address]- 7489 Apr, [facility] [place] [facility] [address] [id number], [place] [address] 2546 Apr, [facility] [place] [facility] [address] [id number] [place] [address] 2546 Apr, [facility] [place] [facility] [address] [id number] [place] 2757 Apr, [facility] [place] [facility] [address] [id number] [place] 4016 Apr, [facility] [place] [facility] [address] [id number] [place] [address]- 7930 Apr, [facility] [address] [id number] [place] [address]- 7701 Apr, [facility] [place] [facility] [address] [id number] [place] [address]- 6274 Dec, [facility] [address] [id number] [place] [address]- 1617 Dec, [facility] [place] [facility] [address] [id number] [place] [address]- 8631 Jul, [facility] [address] [id number] [place] [address]- 0581 Jun, [facility] [address] [id number] [place] [address] 2546 Jun, [facility] [address] [facility] [id number] [place] [address]- 4883 Oct, [facility] [address] [id number] [place] [address]- 9836 Jul, [facility] [address] [facility] [id number] [place] [address]- 4128 Apr, [facility] [address] [facility] [id number] [place] [address]- 1162 Apr, [facility] [address] [id number] [place] [address]- 0384 Apr, [facility] [place] [facility] [address] [id number] [place] [address]- 254 Mar, [facility] [place] [facility] [address] [id number] [place] [address]- 6893 Jan, [facility] [place] [facility] [address] [id number] [place] [address]- 2546 Jan, [facility] [place] [facility] [address] [id number] [place] [address]- 0088 Jan, [facility] [address] [facility] [id number] [address]- 2546 16 Dec, [address] [place] [address] [facility] [id number] [address]- 2546 Oct, [facility] [address] [facility] [id number] [address]- 2546 Jan, [place] [address] [facility] [id number] [address]- 2546 Oct, [place] [address] [facility] [id number] [address]- 2546 Apr, IMMUNIZATIONS No Known Immunizations SOCIAL HISTORY Never Assessed REASON FOR VISIT forgetfulness, refills on all medications Bakari Mariano MA, needs a refill of Trazadone, rash on both arms and legs that causes irritation and itching. Patient claims the rash started a couple of weeks ago, Urine is bright yellow and hess PLAN OF CARE Activity Details Follow Up 6 Months Reason:BP VITAL SIGNS Height 62 in 2017-08-02 Weight 191 lbs 2017-08-02 Temperature 98.5 degrees Fahrenheit 2017-08-02 Heart Rate 67 bpm 2017-08-02 Respiratory Rate 18 2017-08-02 Oximetry on room air:97 % 2017-08-02 BMI 34.93 kg/m2 2017-08-02 Blood pressure systolic 122 mmHg 2017-08-02 Blood pressure diastolic 84 mmHg 2017-08-02 MEDICATIONS Medication Instructions Dosage Frequency Start Date End Date Duration Status Montelukast Sodium 10 MG TAKE 1 TABLET BY MOUTH IN THE EVENING Active Trazodone HCl 50 mg Orally Once a day 1 tablet at bedtime 24h 90 days Active Flonase 50 MCG/ACT Nasally twice a day 1 spray in each nostril 12h Mar, 30 day(s) Active ProAir HFA Inhalation every 6 hrs 2 puffs as needed 6h Active Synthroid 50 MCG Orally Once a day 1 tablet on an empty stomach in the morning 24h Active Omeprazole 40 MG Orally Once a day 1 capsule 24h August, 90 days Active Zoloft 50 mg Orally Once a day 1 tablet 24h Aug, Active Permethrin 5 % Externally Once a day Leave on for 10 hours and then shower 1 application to body from head to toe. Avoid face and genitals. Aug, Aug, 1 dose Active Cetirizine HCl 10 mg Orally Once a day 1 tablet 24h Oct, 90 Active Propranolol HCl 40 MG Orally Twice a day 1 tablet 12h 15 Jun, 2016 30 days Active RESULTS No Results PROCEDURES Procedure Date Ordered Result Body Site URINALYSIS, AUTO, W/O SCOPE August 02, 2017 [facility] August 02, 2017 INSTRUCTIONS MEDICATIONS ADMINISTERED No Known Medications MEDICAL (GENERAL) HISTORY Type Description Date Medical [...] 01/06/16 Hospitalization History Suicidal ideation with auditory hallucinations-[facility] Hospitalization History PT was in [place] for two weeks following her stay 12/2016
--- OUTSIDE RECORDS SUMMARY | 2017-12-14 19:39 | XMS REPORT ---
Author Author HCRISS MENDEZ [facility] Address [address] [place] [address] Care Team Providers Care Manufacture Specialist Name Role Phone CHRISS MENDEZ Unavailable PROBLEMS Type Condition ICD9-CM Code IKB09-FN Code Onset Dates Condition Status SNOMED Code Problem Headache R51 Active 69755939 Problem Irritable bowel syndrome without diarrhea K58.9 Active 84937525 Problem Hypoxemia R09.02 Active 427251590 Problem Mixed hyperlipidemia E78.2 Active 854529852 Problem Asthma 493.90 Active 184830985 Problem Vaginitis N76.0 Active 89782341 Problem Primary insomnia F51.01 Active 2892349 Problem Acquired hypothyroidism E03.9 Active 117861481 Problem Hypertension I10 Active 12156843 Problem Unspecified asthma, uncomplicated J45.909 Active 91686022 Problem Psychosis, unspecified psychosis type F29 Active 67317780 Problem Allergic rhinitis, unspecified allergic rhinitis type J30.9 Active 67450012 ALLERGIES Substance Reaction Event Type Date Status Penicillin V Potassium Unknown Drug Allergy Aug, Active Hydrocodone-Acetaminophen Unknown Drug Allergy Aug, Active Cyclobenzaprine HCl Unknown Drug Allergy Aug, Active Cipro Unknown Drug Allergy Aug, Active Tramadol Unknown Drug Allergy Aug, Active ENCOUNTERS Encounter Location Date Diagnosis [facility] [id number] [place] [address] 40665- 4541 Oct, Primary insomnia F51.01 [facility] [id number] [address] 11 Oct, 2017 Forgetfulness R68.89 ; Psychosis, unspecified psychosis type F29 ; Acquired hypothyroidism E03.9 ; Mixed hyperlipidemia E78.2 ; Hypertension I10 ; Encounter for immunization Z23 and Breast cancer screening by mammogram Z12.31 [id number] [place] [address] 17416- 4410 Aug, Onychomycosis B35.1 [facility] [address] 26072- 2305 Aug, Mixed hyperlipidemia E78.2 [facility] [address] 12876- [address] Aug, Scabies B86 ; Allergic rhinitis, unspecified allergic rhinitis type J30.9 ; Primary insomnia F51.01 ; Dysuria R30.0 ; Psychosis, unspecified psychosis type F29 ; Acquired hypothyroidism E03.9 and Hypertension I10 [place] [address] [address]- 4146 May, Hypertension I10 [place] [address] 93445- 2256 Apr, Unspecified asthma, uncomplicated J45.909 and Hypertension I10 [place] [address] 74786- 4725 Mar, Hypertension I10 [place] [address] 50931- 4392 Mar, Hypertension I10 ; Psychosis, unspecified psychosis type F29 ; Forgetfulness R68.89 and Encounter for immunization Z23 [place] [address] 78305- 3191 Mar, [facility] [address] 98185- 3871 Jan, [facility] [address] 91935- 6324 Jan, Psychosis, unspecified psychosis type F29 [place] [address] 02762- 5142 Jan, [place] [address] [id number] Dec, [facility] [address] 71136- 0137 Dec, Dizziness R42 [facility] [id number] [place] [address] 99390- 5376 Oct, Hypertension I10 ; Allergic rhinitis, unspecified allergic rhinitis type J30.9 and Flea bite of multiple sites W57.XXXA [facility] [id number] [place] [address] 00245- 3018 August, [facility] [address] 18207- 3670 August, Hypertension I10 ; Vertigo R42 ; Abdominal pain, acute, right lower quadrant R10.31 and Unspecified asthma, uncomplicated J45.909 [place] [id number] [place] [address] 98895- 4474 Aug, Right lower quadrant abdominal pain R10.31 ; Irritable bowel syndrome without diarrhea K58.9 and Essential hypertension I10 [place] [id number] [place] [address] 51676- 4528 Aug, [facility] [id number] [place] [address] 31968- 7984 Jul, [place] [id number] [place] [address] 04761- 0235 Jul, [facility] [id number] [place] [address] 43241- 6155 Jul, [facility] [id number] [place] [address] 05597- 3752 Jul, [facility] [id number] [place] [address] 03054- 6981 Jun, [facility] [id number] [place] [address] 50719- 6552 Jun, Abdominal pain, acute, right lower quadrant R10.31 [facility] [id number] [place] [address] 67730- 5699 Jun, [place] [address] [address] 65[address] 16 Jun, 2016 [facility] [id number] [place] [address] 33247- 7109 Jun, [facility] [address] [address]- 0245 Apr, [facility] [id number] [place] [address] 26891- 6917 Apr, Decubitus skin ulcer, stage I L89.91 [facility] [id number] [place] [address] 79625- 7523 Mar, [facility] [id number] [place] [address] 59136 -6823 Mar, Pressure ulcer, stage II L89.92 [facility] [id number] [place] [address] 23770- 8377 Jan, Wound cellulitis L03.90 [facility] [id number] [place] [address] 40545- 2748 Jan, [facility] [id number] [place] [address] 00035- 3413 Dec, [facility] [address] [address]- 5329 Oct, Elevated blood pressure I10 and Allergic rhinitis, unspecified allergic rhinitis type J30.9 [facility] [address] [address]- 9004 August, [facility] [id number] [place] [address] 60728- 0795 August, Right lower quadrant abdominal pain R10.31 and Essential hypertension I10 [facility] [address] [address]- 1669 August, [facility] [id number] [place] [address] 99224- 9422 August, [facility] [id number] [place] [address] 60972- 8676 Aug, [facility] [address] 64904- 3702 Aug, Hypertension I10 and Rash R21 [facility] [address] 44450- 3036 Aug, Gastritis K29.70 [facility] [address] 23440- 3885 Aug, [facility] [address] 95037- 2219 Aug, [facility] [address] 08082- 5948 Aug, [place] [address] 01407- 0739 Aug, Rash R21 ; Vertigo R42 ; Gastritis K29.70 and Urination pain R30.9 [place] [address] 54649- 1038 Jul, [facility] [address] 19079- 8528 Jul, [place] [address] 85219- 9824 Jul, Hypertension I10 [facility] [address] 16172- 2203 Jul, Headache R51 ; Hypertension I10 ; Vaginitis N76.0 and Hypoxemia R09.02 [facility] [address] 05399- 5140 May, [facility] [address] 94835- 5109 Apr, [facility] [address] 66991- 0972 Jan, Urinary tract infection, site unspecified N39.0 and Encounter for immunization Z23 [facility] [address] 04756- 4157 Jan, Allergic rhinitis 477.9 ; Abdominal pain 789.00 and Asthma 493.90 [facility] [address] 75572- 7804 Dec, [facility] [address] 08904- 1208 Dec, [facility] [address] 17237- 6968 Dec, Scabies 133.0 and Snoring 786.09 [facility] [address] 63178- 8662 Oct, Scabies 133.0 [facility] [address] 35964- 2665 Oct, [facility] [id number] [place] [address] 50403- 7370 Oct, [facility] [id number] [place] [address] 26283- 5642 August, Vertigo 780.4 ; Anxiety 300.00 ; Rash 782.1 and Abscess 682.9 [facility] [id number] [place] [address] 55248- 3834 August, [facility] [id number] [place] [address] 03941- 0318 Aug, [facility] [address] 26485- 6872 Aug, [facility] [id number] [place] [address] 83466- 6873 Jul, [facility] [address] 24559- 5001 Jul, [facility] [place] [facility] [address] [id number] [place] [address]- 2462 Jul, [facility] [place] [facility] [address] [id number] [place] [address]- 6331 Jul, [facility] [place] [facility] [address] [id number] [place] [address]- 4957 Jun, [facility] [place] [facility] [address] [id number] [place] [address]- 5009 Jun, [facility] [place] [facility] [address] [id number] [place] [address]- 7653 May, [facility] [place] [facility] [address] [id number] [place] [address]- 9325 May, [facility] [place] [facility] [address] [id number] [place] [address]- 9232 Apr, [facility] [place] [facility] [address] [id number] [place] [address]- 9970 Apr, [facility] [place] [facility] [address] [id number] [place] [address]- 8509 Apr, [facility] [place] [facility] [address] [id number] [place] [address]- 4511 Apr, [facility] [place] [facility] [address] [id number] [address]- 5460 Mar, [facility] [place] [facility] [address] [id number], [place] [address]- 1251 Mar, [facility] [place] [facility] [address] [id number] [place] [address]- 5340 Jan, [facility] [place] [facility] [address] [id number] [address]- 8951 Jan, [facility] [place] [facility] [address] [id number] [place] [address]- 5241 Jan, [facility] [place] [facility] [address] [id number] [place] [address]- 9224 Jan, [facility] [place] [facility] [address] [id number] [place] [address]- 8274 Jan, [facility] [place] [facility] [address] [id number] [place] [address]- 4428 Jan, [facility] [place] [facility] [address] [id number] [place] [address]- 6632 Dec, [facility] [place] [facility] [address] [id number] [place] [address]- 4639 Dec, [facility] [place] [facility] [address] [id number] [place] [address]- 0715 Oct, [facility] [place] [facility] [address] [id number] [place] [address]- 6161 Oct, [facility] [place] [facility] [address] [id number] [place] [address]- 1557 Oct, [facility] [place] [facility] [address] [id number] [place] [address]- 7046 Oct, [facility] [place] [facility] [address] [id number] [place] [address]- 1292 Oct, [facility] [place] [facility] [address] [id number] [place] [address]- 5860 Oct, [facility] [place] [facility] [address] [id number] [place] [address]- 9092 Oct, [facility] [place] [facility] [address] [id number] [place] [address]- 0036 Oct, [facility] [place] [facility] [address] [id number] [place] [address]- 4982 Oct, [facility] [place] [facility] [address] [id number] [place] [address]- 8964 August, [facility] [place] [facility] [address] [id number] [place] [address]- 5231 August, [facility] [place] [facility] [address] [id number] [place] [address]- 8540 Jun, [facility] [place] [facility] [address] [id number] [place] [address]- 2216 Jun, [facility] [place] [facility] [address] [id number] [place] [address]- 8706 Jun, [facility] [place] [facility] [address] [id number] [place] [address]- 1256 Jun, [facility] [place] [facility] [address] [id number] [place] [address]- 6370 Jun, [facility] [place] [facility] [address] [id number] [place] [address]- 9691 Apr, [facility] [place] [facility] [address] [id number] [place] [address]- 2516 Apr, [facility] [place] [facility] [address] [id number] [place] [address]- 9457 Apr, [facility] [place] [facility] [address] [id number] [place] [address] 254 Apr, [facility] [place] [facility] [address] [id number] [place] [address]- 2548 Apr, [facility] [place] [facility] [address] [id number] [place] [address]- 2544 Apr, [facility] [place] [facility] [address] [id number], [place] [address] 254 Apr, [facility] [place] [facility] [address] [id number] [place] [address] 2546 Apr, [facility] [place] [facility] [address] [id number] [place] [address]- 2546 Apr, [facility] [place] [facility] [address] [id number] [place] [address] 2545 Apr, [facility] [place] [facility] [address] [id number], [place] [address]- 9752 Apr, [facility] [address] [id number] [place] [address]- 4654 Apr, [facility] [place] [facility] [address] [id number] [place] [address]- 0593 Dec, [facility] [place] [facility] [address] [facility] [id number] [place] [address]- 3454 Dec, [facility] [place] [facility] [address] [id number] [place] [address]- 0356 Jul, [facility] [id number] [place] [address], [place] [address]- 1894 Jun, [facility] [place] [facility] [address] [facility] [id number] [place] [address]- 4621 Jun, [facility] [address] [facility] [id number] [place] [address]- 8657 Oct, [facility] [address] [facility] [id number] [place] [address]- 6393 Jul, [facility] [address] [facility] [id number] [place] [address]- 1694 Apr, [facility] [address] [facility] [id number] [place] [address]- 5509 Apr, [facility] [address] [facility] [id number] [place] [address]- 2725 Apr, [facility] [place] [facility] [address] [facility] [id number], [place] [address]- 254 Mar, [facility] [place] [facility] [address] [id number] [place] [address]- 4016 Jan, [facility] [place] [facility] [address] [facility] [id number] [place] [address] 2547 Jan, [facility] [place] [facility] [address] [facility] [id number], [place] [address]- 0164 Jan, [facility] [place] [facility] [address] [facility] [id number], [place] [address]- 8846 Dec, [facility] [address] [facility] [id number], [place] [address]- 7179 Oct, [facility] [address] [facility] [id number], [place] [address]- 8186 Jan, [place] [address] [facility] [id number], [place] [address]- 3002 Oct, [place] [address] [facility] [id number], [place] [address]- 6495 Apr, IMMUNIZATIONS No Known Immunizations SOCIAL HISTORY Never Assessed REASON FOR VISIT foot pain in both feet WB-MA PLAN OF CARE Activity Details Follow Up Reg appt Reason: VITAL SIGNS Height 62 in 2017-08-27 Weight 187 lbs 2017-08-27 Temperature 98.6 degrees Fahrenheit 2017-08-27 Heart Rate 66 bpm 2017-08-27 Respiratory Rate 18 2017-08-27 BMI 34.20 kg/m2 2017-08-27 Blood pressure systolic 116 mmHg 2017-08-27 Blood pressure diastolic 80 mmHg 2017-08-27 MEDICATIONS Medication Instructions Dosage Frequency Start Date End Date Duration Status Propranolol HCl 40 MG Orally Twice a day 1 tablet 12h 15 Jun, 2016 30 days Active Omeprazole 40 MG Orally Once a day 1 capsule 24h 04 Sep, 2015 90 days Active Zoloft 50 mg Orally Once a day 1 tablet 24h 12 Aug, 2016 Active Flonase 50 MCG/ACT Nasally twice a day 1 spray in each nostril 12h Mar, 30 day(s) Active ProAir HFA Inhalation every 6 hrs 2 puffs as needed 6h Active Synthroid 50 MCG Orally Once a day 1 tablet on an empty stomach in the morning 24h Active Montelukast Sodium 10 MG TAKE 1 TABLET BY MOUTH IN THE EVENING Active Cetirizine HCl 10 mg Orally Once a day 1 tablet 24h 21 Oct, 2016 90 Active Lovastatin 40 mg Orally Once a day 1 tablet with a meal 24h 17 Aug, 2017 30 day(s) Active Trazodone HCl 50 mg Orally Once a day 1 tablet at bedtime 24h 90 days Active RESULTS No Results PROCEDURES No Known procedures INSTRUCTIONS MEDICATIONS ADMINISTERED No Known Medications MEDICAL [...] 01/06/16 Hospitalization History Suicidal ideation with auditory hallucinations-[facility] Hospitalization History PT was in [place] for two weeks following her stay 12/2016
--- OUTSIDE RECORDS SUMMARY | 2017-12-14 19:40 | XMS REPORT ---
Author Author EDUARDO GRUBER Organization [facility] Address [address] [place] [address] Care Team Providers [employer] Back Counter Man Name Role Phone EDUARDO GRUBER Unavailable PROBLEMS Type Condition ICD9-CM Code FHA62-NS Code Onset Dates Condition Status SNOMED Code Problem Headache R51 Active 61327561 Problem Irritable bowel syndrome without diarrhea K58.9 Active 80170549 Problem Hypoxemia R09.02 Active 303431655 Problem Mixed hyperlipidemia E78.2 Active 527800034 Problem Asthma 493.90 Active 418282069 Problem Vaginitis N76.0 Active 08053973 Problem Primary insomnia F51.01 Active 4206038 Problem Acquired hypothyroidism E03.9 Active 871249677 Problem Hypertension I10 Active 95553553 Problem Unspecified asthma, uncomplicated J45.909 Active 70006064 Problem Psychosis, unspecified psychosis type F29 Active 99976460 Problem Allergic rhinitis, unspecified allergic rhinitis type J30.9 Active [id number] ALLERGIES No Information ENCOUNTERS Encounter Location Date Diagnosis [place] [id number] [place] [address]19- 1260 Oct, [place] [id number] [place] [address] 34823- 3267 August, [place] [id number] [place] [address] 32819- 4086 Aug, Onychomycosis B35.[address] [address]- 6477 Aug, Mixed hyperlipidemia E78.2 [place] [id number] [place] [address] 35624- 2794 Aug, Scabies B86 ; Allergic rhinitis, unspecified allergic rhinitis type J30.9 ; Primary insomnia F51.01 ; Dysuria R30.0 ; Psychosis, unspecified psychosis type F29 ; Acquired hypothyroidism E03.9 and Hypertension I10 [facility] [address] [address]- 6371 May, Hypertension I10 [facility] [address] 24811- 1552 Apr, Unspecified asthma, uncomplicated J45.909 and Hypertension I10 [facility] [address] [address]01- 5726 Mar, Hypertension I10 [place] [address] 63720- 2035 Mar, Hypertension I10 ; Psychosis, unspecified psychosis type F29 ; Forgetfulness R68.89 and Encounter for immunization Z23 [place] [address] 83054- 0588 Mar, [facility] [address] 73497- 6262 Jan, [facility] [address] 11519- 7458 Jan, Psychosis, unspecified psychosis type F29 [facility] [address] 72709- 1213 Jan, [facility] [address] [id number] Dec, [facility] [address] 54672- 2488 Dec, Dizziness R42 [facility] [address] 58871- 0986 Oct, Hypertension I10 ; Allergic rhinitis, unspecified allergic rhinitis type J30.9 and Flea bite of multiple sites W57.XXXA [facility] [address] 15264- 5012 August, [facility] [address] [address] August, Hypertension I10 ; Vertigo R42 ; Abdominal pain, acute, right lower quadrant R10.31 and Unspecified asthma, uncomplicated J45.909 [facility] [id number] [address] 12 Aug, 2016 Right lower quadrant abdominal pain R10.31 ; Irritable bowel syndrome without diarrhea K58.9 and Essential hypertension I10 [facility] [id number] [address] 4789 Aug, [facility] [id number] [place] [address] 26810- 4138 Jul, [facility] [id number] [place] [address] 07717- 9755 Jul, [facility] [id number] [place] [address] 73240- 1527 Jul, [facility] [id number] [place] [address] 41181- 2455 Jul, [facility] [id number] [place] [address] 11617- 6329 Jun, [facility] [address] [address]- 2799 Jun, Abdominal pain, acute, right lower quadrant R10.31 [facility] [address] [address] 8098 Jun, [facility] [address] [address]- 3811 16 Jun, 2016 [facility] [id number] [address]- 0572 15 Jun, 2016 [facility] [address] [address]- 1385 Apr, [facility] [id number] [place] [address] 27667- 2860 Apr, Decubitus skin ulcer, stage I L89.91 [facility] [id number] [place] [address] 50169- 2147 Mar, [facility] [id number] [place] [address] 01610 -8563 Mar, Pressure ulcer, stage II L89.92 [facility] [id number] [place] [address] 53069- 5475 Jan, Wound cellulitis L03.90 [facility] [id number] [place] [address] 02798- 3262 Jan, [facility] [id number] [place] [address] 94163- 7816 Dec, [facility] [id number] [place] [address] 82103- 5076 Oct, Elevated blood pressure I10 and Allergic rhinitis, unspecified allergic rhinitis type J30.9 [facility] [id number] [place] [address] 85989- 1448 August, [facility] [id number] [place] [address] 69837- 9257 August, Right lower quadrant abdominal pain R10.31 and Essential hypertension I10 [facility] [id number] [place] [address] 44556- 1849 August, [facility] [id number] [place] [address] 72364- 7940 August, [facility] [id number] [place] [address] 01229- 2171 Aug, [facility] [id number] [place] [address] 50473- 9950 Aug, Hypertension I10 and Rash R21 [facility] [id number] [place] [address] 50923- 3320 Aug, Gastritis K29.70 [place] [address] 99266- 9013 Aug, [place] [address] 26386- 4765 Aug, [place] [address] 67869- 2250 Aug, [place] [address] 54924- 5450 Aug, Rash R21 ; Vertigo R42 ; Gastritis K29.70 and Urination pain R30.9 [place] [address] 17316- 0619 Jul, [place] [address] 53168- 8932 Jul, [place] [address] 16408- 5663 Jul, Hypertension I10 [place] [address] 78397- 7128 Jul, Headache R51 ; Hypertension I10 ; Vaginitis N76.0 and Hypoxemia R09.02 [place] [id number] [place] [address] 02388- 4627 May, [place] [address] 72915- 5039 Apr, [place] [address] 66010- 8943 Jan, Urinary tract infection, site unspecified N39.0 and Encounter for immunization Z23 [place] [address] 76693- 4337 Jan, Allergic rhinitis 477.9 ; Abdominal pain 789.00 and Asthma 493.90 [place] [address] 39234- 5637 Dec, [facility] [address] [address]- 5797 Dec, [facility] [id number] [place] [address] 70802- 9786 Dec, Scabies 133.0 and Snoring 786.09 [facility] [address] [address]- 4243 Oct, Scabies 133.0 [facility] [id number] [place] [address] 46335- 0037 Oct, [facility] [id number] [place] [address] 17962- 8034 Oct, [facility] [id number] [address]- 3100 August, Vertigo 780.4 ; Anxiety 300.00 ; Rash 782.1 and Abscess 682.9 [facility] [address] [address]- 1218 August, [facility] [address] [address]- 5467 Aug, [facility] [id number] [address]- 2900 Aug, [facility] [address] [address]- 2989 Jul, [facility] [address] [address]- 7239 Jul, [facility] [address] [address]- 3009 Jul, [facility] [address] [place] [address]- 4960 Jul, [facility] [id number] 6310 Jun, [facility] [id number] [place] [address]- 3803 Jun, [facility] [address] [id number] [place] [address]- 1792 May, [facility] [place] [facility] [address] [id number] [place] [address]- 9130 May, [facility] [address] [id number] [place] [address]- 2093 Apr, [facility] [place] [facility] [address] [id number] [place] [address]- 0152 Apr, [facility] [address] [id number] [place] [address]- 8833 Apr, [facility] [place] [facility] [address] [id number] [place] [address]- 2311 Apr, [facility] [place] [facility] [address] [id number] [place] [address]- 7731 Mar, [facility] [place] [facility] [address] [id number] [place] [address]- 5576 Mar, [facility] [place] [facility] [address] [id number] [place] [address]- 6677 Jan, [facility] [place] [facility] [address] [facility] [id number] [place] [address]- 7812 Jan, [facility] [place] [facility] [address] [id number] [place] [address]- 9689 Jan, [facility] [place] [facility] [address] [id number] [place] [address]- 2133 Jan, [facility] [place] [facility] [address] [id number] [place] [address]- 6534 Jan, [facility] [place] [facility] [address] [id number] [place] [address]- 9846 Jan, [facility] [place] [facility] [address] [id number] [place] [address]- 9448 Dec, [facility] [place] [facility] [address] [id number] [place] [address]- 9442 Dec, [facility] [place] [facility] [address] [id number] [place] [address]- 4327 Oct, [facility] [place] [facility] [address] [id number] [place] [address]- 5605 Oct, [facility] [place] [facility] [address] [id number] [place] [address]- 7856 Oct, [facility] [place] [facility] [address] [id number] [place] [address]- 4833 Oct, [facility] [place] [facility] [address] [id number] [place] [address]- 8367 Oct, [facility] [place] [facility] [address] [id number] [place] [address]- 4749 Oct, [facility] [place] [facility] [address] [id number] [place] [address]- 9536 Oct, [facility] [place] [facility] [address] [id number] [place] [address]- 6637 Oct, [facility] [place] [facility] [address] [id number] [place] [address]- 0322 Oct, [facility] [place] [facility] [address] [id number] [place] [address]- 2760 August, [facility] [place] [facility] [address] [id number] [place] [address]- 2986 August, [facility] [place] [facility] [address] [id number] [place] [address]- 3154 Jun, [facility] [place] [facility] [address] [id number] [place] [address]- 5456 Jun, [facility] [place] [facility] [address] [id number] [place] 1601 Jun, [facility] [place] [facility] [address] [id number] [place] [address]- 7773 Jun, [facility] [address] [id number] [place] [address]- 0526 Jun, [facility] [place] [facility] [address] [id number] [place] [address]- 8436 Apr, [facility] [address] [id number] [place] [address]- 9876 Apr, [facility] [place] [facility] [address] [id number] [place] [address]- 8593 Apr, [facility] [address] [id number] [place] [address]- 4198 Apr, [facility] [place] [facility] [address] [id number] [place] [address]- 9271 Apr, [facility] [address] [id number] [place] [address]- 3467 Apr, [facility] [place] [facility] [address] [id number] [place] [address]- 9963 Apr, [facility] [place] [facility] [address] [id number] [place] [address]- 5641 Apr, [facility] [place] [facility] [address] [facility] [id number] [place] [address]- 0009 Apr, [facility] [place] [facility] [address] [id number] [place] [address]- 2674 Apr, [facility] [place] [facility] [address] [id number] [place] [address]- 7495 Apr, [facility] [place] [facility] [address] [id number] [place] [address]- 6034 Apr, [facility] [place] [facility] [address] [id number] [place] [address]- 1142 Dec, [facility] [place] [facility] [address] [id number] [place] [address]- 5673 Dec, [facility] [place] [facility] [address] [id number] [place] [address]- 6562 Jul, [facility] [place] [facility] [address] [id number] [place] [address]- 2266 Jun, [facility] [place] [facility] [address] [id number] [place] [address]- 9896 Jun, [facility] [place] [facility] [address] [id number] [place] [address]- 5249 Oct, [facility] [address] [id number] [place] [address]- 7454 Jul, [facility] [place] [facility] [address] [id number] [place] [address]- 7335 Apr, [facility] [place] [facility] [address] [id number] [place] [address]- 9997 Apr, [facility] [place] [facility] [address] [id number] [place] [address]- 6227 Apr, [facility] [place] [facility] [address] [id number] [place] [address]- 6145 Mar, [facility] [place] [facility] [address] [id number] [place] 8317 Jan, [facility] [place] [facility] [address] [id number] [place] [address]- 4705 Jan, [facility] [place] [facility] [address] [id number] [address]- 2412 Jan, [facility] [place] [facility] [address] [id number] [place] [address]- 9183 Dec, [facility] [place] [facility] [address] [id number] [place] [address]- 1762 Oct, [facility] [place] [facility] [address] [id number] [place] [address]- 0243 Jan, [facility] [place] [facility] [address] [id number], [place] [address]- 2546 Oct, [facility] [address] [facility] [id number] [place] [address]- 2546 Apr, IMMUNIZATIONS No Known Immunizations SOCIAL HISTORY Never Assessed REASON FOR VISIT Refill request PLAN OF CARE VITAL SIGNS MEDICATIONS Medication Instructions Dosage Frequency Start Date End Date Duration Status Omeprazole 40 MG Orally Once a day 1 capsule 24h August, 90 days Active RESULTS No Results PROCEDURES [...] 01/06/16 Hospitalization History Suicidal ideation with auditory hallucinations-[facility] Hospitalization History PT was in [place] for two weeks following her stay 12/2016
--- OUTSIDE RECORDS SUMMARY | 2017-12-14 19:40 | XMS REPORT ---
Author Author EDUARDO GRUBER [facility] Address [address] [place] [address] Care Team Providers Care Rn Post Partum Name Role Phone EDUARDO GRUBER Unavailable PROBLEMS Type Condition ICD9-CM Code EAT08-UC Code Onset Dates Condition Status SNOMED Code Problem Headache R51 Active 96179576 Problem Irritable bowel syndrome without diarrhea K58.9 Active 51611577 Problem Hypoxemia R09.02 Active 259221642 Problem Mixed hyperlipidemia E78.2 Active 056396036 Problem Asthma 493.90 Active 550925713 Problem Vaginitis N76.0 Active 00081206 Problem Primary insomnia F51.01 Active 2619492 Problem Acquired hypothyroidism E03.9 Active 568085930 Problem Hypertension I10 Active 08729524 Problem Unspecified asthma, uncomplicated J45.909 Active 35190055 Problem Psychosis, unspecified psychosis type F29 Active 93913469 Problem Allergic rhinitis, unspecified allergic rhinitis type J30.9 Active 63862390 ALLERGIES No Information ENCOUNTERS Encounter Location Date Diagnosis [place] [id number] [place] [address] 85415- 1421 Oct, Primary insomnia F51.01 [address] [place] [address] 66303- 3401 11 Oct, 2017 Forgetfulness R68.89 ; Psychosis, unspecified psychosis type F29 ; Acquired hypothyroidism E03.9 ; Mixed hyperlipidemia E78.2 ; Hypertension I10 ; Encounter for immunization Z23 and Breast cancer screening by mammogram Z12.[address] [place] [address] 07236- 4942 Aug, Onychomycosis B35.1 [place] [id number] [place] [address] 09710- 7609 Aug, Mixed hyperlipidemia E78.2 [place] [address] [place] [id number] [place] [address] 32649- 4992 Aug, Scabies B86 ; Allergic rhinitis, unspecified allergic rhinitis type J30.9 ; Primary insomnia F51.01 ; Dysuria R30.0 ; Psychosis, unspecified psychosis type F29 ; Acquired hypothyroidism E03.9 and Hypertension I10 [place] [address] 14439- 7793 May, Hypertension I10 [place] [address] 51590- 6037 Apr, Unspecified asthma, uncomplicated J45.909 and Hypertension I10 [place] [address] 16475- 1174 Mar, Hypertension I10 [place] [address] 68454- 0615 Mar, Hypertension I10 ; Psychosis, unspecified psychosis type F29 ; Forgetfulness R68.89 and Encounter for immunization Z23 [place] [address] 87295- 0285 Mar, [place] [address] 28730- 2570 Jan, [place] [address] 00508- 5361 Jan, Psychosis, unspecified psychosis type F29 [place] [address] 14075- 2732 Jan, [place] [address] [id number] Dec, [place] [address] 16014- 4971 Dec, Dizziness R42 [place] [address] 41350- 8796 Oct, Hypertension I10 ; Allergic rhinitis, unspecified allergic rhinitis type J30.9 and Flea bite of multiple sites W57.XXXA [facility] [address] [place] [id number] [place] [address] 12051- 9819 August, [facility] [address] [place] [id number] [place] [address] 28498- 4971 August, Hypertension I10 ; Vertigo R42 ; Abdominal pain, acute, right lower quadrant R10.31 and Unspecified asthma, uncomplicated J45.909 [facility] [address] 69120- 6470 Aug, Right lower quadrant abdominal pain R10.31 ; Irritable bowel syndrome without diarrhea K58.9 and Essential hypertension I10 [facility] [address] [place] [id number] [place] [address] 93298- 2929 Aug, [facility] [address] [place] [id number] [place] [address] 98269- 2062 Jul, [facility] [address] [place] [id number] [place] [address] 09051- 5355 Jul, [facility] [address] [place] [id number] [place] [address] 60211- 4264 Jul, [facility] [address] [place] [id number] [place] [address] 86530- 3376 Jul, [facility] [address] [place] [id number] [place] [address] 40952- 4253 Jun, [facility] [address] [place] [id number] [place] [address] 27931- 0457 Jun, Abdominal pain, acute, right lower quadrant R10.31 [facility] [address] [place] [id number] [place] [address] 93145- 7643 Jun, [facility] [address] [place] [id number] [place] [address] 87408- 5295 16 Jun, 2016 [facility] [address] [place] [id number] [place] [address] 37949- 1750 Jun, [facility] [address] [address]- 0410 Apr, [facility] [address] [place] [id number] [place] [address] 51318- 4235 Apr, Decubitus skin ulcer, stage I L89.91 [facility] [address] [place] [address] 01930- 5228 Mar, [facility] [address] [address] Mar, Pressure ulcer, stage II L89.92 [facility] [address] [place] [id number] [place] [address] 02182- 1128 Jan, Wound cellulitis L03.90 [facility] [address] [place] [id number] [place] [address] 72915- 8300 Jan, [facility] [address] [place] [id number] [place] [address] 09634- 2252 Dec, [facility] [address] [place] [id number] [place] [address] 72619- 4711 Oct, Elevated blood pressure I10 and Allergic rhinitis, unspecified allergic rhinitis type J30.9 [facility] [address] [place] [address] 84348- 1018 August, [facility] [address] [place] [id number] [place] [address] 50048- 7702 August, Right lower quadrant abdominal pain R10.31 and Essential hypertension I10 [facility] [address] [place] [address] 60531- 7136 August, [facility] [address] [place] [id number] [place] [address] 75480- 2793 August, [facility] [address] [place] [address] 23223- 3693 Aug, [facility] [address] [place] [id number] [place] [address] 67997- 0885 Aug, Hypertension I10 and Rash R21 [facility] [address] 70806- 6350 Aug, Gastritis K29.70 [facility] [address] 92187- 4792 Aug, [facility] [address] 00757- 1708 Aug, [facility] [address] 64124- 4359 Aug, [facility] [address] 80028- 5792 Aug, Rash R21 ; Vertigo R42 ; Gastritis K29.70 and Urination pain R30.9 [place] [address] 36094- 0202 Jul, [facility] [address] [place] [id number] [place] [address] 03317- 4329 Jul, [place] [address] 00021- 7597 09 Jul, 2015 Hypertension I10 [place] [address] [place] [id number] [place] [address] 13264- 5599 Jul, Headache R51 ; Hypertension I10 ; Vaginitis N76.0 and Hypoxemia R09.02 [facility] [address] [place] [id number] [place] [address] 61610- 6016 May, [facility] [address] [place] [id number] [place] [address] 39069- 6946 Apr, [place] [address] 79604- 8140 Jan, Urinary tract infection, site unspecified N39.0 and Encounter for immunization Z23 [place] [address] 68684- 8360 Jan, Allergic rhinitis 477.9 ; Abdominal pain 789.00 and Asthma 493.90 [facility] [address] [place] [id number] [place] [address] 56825- 7547 Dec, [facility] [address] [place] [id number] [place] [address] 93489- 8116 Dec, [facility] [address] 60193- 7518 Dec, Scabies 133.0 and Snoring 786.09 [facility] [address] 06512- 7846 Oct, Scabies 133.0 [facility] [address] 13625- 7467 Oct, [facility] [address] 78589- 3091 Oct, [facility] [address] 41008- 8463 August, Vertigo 780.4 ; Anxiety 300.00 ; Rash 782.1 and Abscess 682.9 [facility] [address] [place] [id number] [place] [address] 98926- 3507 August, [facility] [address] [place] [id number] [place] [address] 38265- 4424 Aug, [facility] [address] [place] [id number] [place] [address] 31187- 7153 Aug, [facility] [address] [place] [id number] [place] [address] 43123- 3737 Jul, [facility] [address] 78203- 0185 Jul, [facility] [address] [place] [id number] [place] [address] 32368- 3174 Jul, [facility] [address] 66834- 3021 Jul, [facility] [place] [facility] [address] [id number] [place] [address]- 2910 Jun, [facility] [place] [facility] [address] [id number] [place] [address]- 7442 Jun, [facility] [place] [facility] [address] [facility] [id number] [place] [address]- 3622 May, [facility] [place] [facility] [address] [id number] [place] [address]- 5779 May, [facility] [place] [facility] [address] [id number] [place] [address]- 7538 Apr, [facility] [place] [facility] [address] [id number] [place] [address]- 3834 Apr, [facility] [place] [facility] [address] [facility] [id number] [place] [address]- 6601 Apr, [facility] [place] [facility] [address] [facility] [id number] [place] [address]- 0376 Apr, [facility] [place] [facility] [address] [facility] [id number] [place] [address]- 7579 Mar, [facility] [place] [facility] [address] [facility] [id number] [place] [address]- 2495 Mar, [facility] [place] [facility] [address] [facility] [id number] [address]- 4231 Jan, [facility] [place] [facility] [address] [id number] [address]- 0911 Jan, [facility] [place] [facility] [address] [id number] [address]- 6561 Jan, [facility] [place] [facility] [address] [facility] [id number] [address]- 7056 Jan, [facility] [place] [facility] [address] [facility] [id number] [address]- 1847 Jan, [facility] [place] [facility] [address] [id number] [place] [address]- 4771 Jan, [facility] [place] [facility] [address] [id number] [place] 6974 Dec, [facility] [place] [facility] [address] [id number] [place] 0717 Dec, [facility] [place] [facility] [address] [id number] [place] [address]- 9945 Oct, [facility] [place] [facility] [address] [id number] [place] [address]- 5226 Oct, [facility] [place] [facility] [address] [id number] [place] [address]- 6948 Oct, [facility] [place] [facility] [address] [id number] [place] [address]- 9656 Oct, [facility] [place] [facility] [address] [id number] [place] [address]- 7701 Oct, [facility] [place] [facility] [address] [id number] [place] [address]- 2696 Oct, [facility] [place] [facility] [address] [id number] [place] [address]- 1464 Oct, [facility] [place] [facility] [address] [id number] [place] [address]- 0930 Oct, [facility] [place] [facility] [address] [id number] [place] [address]- 2465 Oct, [facility] [place] [facility] [address] [id number] [place] [address]- 9264 August, [facility] [place] [facility] [address] [id number] [place] 7764 August, [facility] [place] [facility] [address] [id number] [place] [address]- 1063 Jun, [facility] [place] [facility] [address] [id number] [place] [address]- 9016 Jun, [facility] [place] [facility] [address] [id number] [place] [address]- 7541 Jun, [facility] [place] [facility] [address] [id number] [place] [address]- 1576 Jun, [facility] [place] [facility] [address] [id number] [place] [address]- 5936 Jun, [facility] [place] [facility] [address] [id number] [place] [address]- 5555 Apr, [facility] [place] [facility] [address] [id number] [place] [address]- 8925 Apr, [facility] [place] [facility] [address] [id number] [place] [address]- 0851 Apr, [facility] [place] [facility] [address] [id number] [place] [address]- 2886 Apr, [facility] [place] [facility] [address] [id number] [place] [address]- 5245 Apr, [facility] [place] [facility] [address] [id number] [place] [address]- 7994 Apr, [facility] [place] [facility] [address] [id number] [place] [address]- 9442 Apr, [facility] [place] [facility] [address] [id number] [place] [address]- 9856 Apr, [facility] [place] [facility] [address] [id number] [place] [address]- 0156 Apr, [facility] [place] [facility] [address] [id number] [place] [address] 2540 Apr, [facility] [place] [facility] [address] [id number] [place] [address]- 6842 Apr, [facility] [place] [facility] [address] [id number] [place] [address]- 0493 Apr, [facility] [place] [facility] [address] [id number] [place] [address]- 2548 Dec, [facility] [address] [id number] [place] [address]- 5771 Dec, [facility] [place] [facility] [address] [id number] [place] [address]- 6246 Jul, [facility] [address] [id number] [place] [address]- 9742 Jun, [facility] [place] [facility] [address] [id number] [place] [address] 2540 Jun, [facility] [place] [facility] [address] [id number] [place] [address]- 8580 Oct, [facility] [address] [id number] [place] [address]- 3361 Jul, [facility] [address] [id number] [place] [address]- 5855 Apr, [facility] [address] [id number] [place] [address]- 5851 Apr, [facility] [place] [facility] [address] [id number] [place] [address]- 1734 Apr, [facility] [address] [id number] [place] [address]- 6003 Mar, [facility] [place] [facility] [address] [id number] [place] [address]- 1500 Jan, [facility] [place] [facility] [address] [id number] [place] [address]- 4645 Jan, [facility] [place] [facility] [address] [id number] [place] [address]- 0685 Jan, [facility] [place] [facility] [address] [id number] [place] [address]- 2546 Dec, [facility] [place] [facility] [address] [id number] [place] [address]- 3873 Oct, [facility] [address] [facility] [id number], [place] [address]- 4257 Jan, [facility] [address] [facility] [id number] [address]- 9796 Oct, [facility] [address] [facility] [id number], [place] [address]- 1635 Apr, IMMUNIZATIONS No Known Immunizations SOCIAL HISTORY Never Assessed REASON FOR VISIT per lab results PLAN OF CARE VITAL SIGNS MEDICATIONS Medication Instructions Dosage Frequency Start Date End Date Duration Status ProAir HFA Inhalation every 6 hrs 2 puffs as needed 6h Unknown Zoloft 50 mg Orally Once a day 1 tablet 24h 12 Aug, 2016 Unknown Montelukast Sodium 10 MG TAKE 1 TABLET BY MOUTH IN THE EVENING Unknown Trazodone HCl 50 mg Orally Once a day 1 tablet at bedtime 24h 90 days Unknown Lovastatin 40 mg Orally Once a day 1 tablet with a meal 24h 17 Aug, 2017 30 day(s) Active Propranolol HCl 40 MG Orally Twice a day 1 tablet 12h 15 Jun, 2016 30 days Unknown Cetirizine HCl 10 mg Orally Once a day 1 tablet 24h 21 Oct, 2016 90 Unknown Synthroid 50 MCG Orally Once a day 1 tablet on an empty stomach in the morning 24h Unknown Flonase 50 MCG/ACT Nasally twice a day 1 spray in each nostril 12h 20 Mar, 2017 30 day(s) Unknown Omeprazole 40 MG Orally Once a day 1 capsule 24h 04 Sep, 2015 90 days Unknown RESULTS No Results PROCEDURES No Known procedures [...] 01/06/16 Hospitalization History Suicidal ideation with auditory hallucinations-[facility] Hospitalization History PT was in [place] for two weeks following her stay 12/2016
--- OUTSIDE RECORDS SUMMARY | 2017-12-14 19:41 | XMS REPORT ---
Author Author EDUARDO GRUBER Organization [facility] Address [address] [place] [address] Care Team Providers Care Spring Tier Name Role Phone EDUARDO GRUBER Unavailable PROBLEMS Type Condition ICD9-CM Code [id number] Code Onset Dates Condition Status SNOMED Code Problem Headache R51 Active 39646414 Problem Irritable bowel syndrome without diarrhea K58.9 Active 95492197 Problem Hypoxemia R09.02 Active 140316541 Problem Mixed hyperlipidemia E78.2 Active 855205066 Problem Asthma 493.90 Active 985915835 Problem Vaginitis N76.0 Active 86502740 Problem Primary insomnia F51.01 Active 2177029 Problem Acquired hypothyroidism E03.9 Active 224580767 Problem Hypertension I10 Active 07128996 Problem Unspecified asthma, uncomplicated J45.909 Active 98680160 Problem Psychosis, unspecified psychosis type F29 Active 01294797 Problem Allergic rhinitis, unspecified allergic rhinitis type J30.9 Active 05115207 ALLERGIES No Information ENCOUNTERS Encounter Location Date Diagnosis [place] [id number] [place] [address] 52560- 7387 Oct, [place] [id number] [place] [address] 14128- 8408 Aug, Onychomycosis B35.1 [place] [id number] [place] [address] 97116- 3905 Aug, Mixed hyperlipidemia E78.[address] [address]65- 4001 Aug, Scabies B86 ; Allergic rhinitis, unspecified allergic rhinitis type J30.9 ; Primary insomnia F51.01 ; Dysuria R30.0 ; Psychosis, unspecified psychosis type F29 ; Acquired hypothyroidism E03.9 and Hypertension I10 [id number] [place] [address] 57459- 1511 May, Hypertension I10 [facility] [address] 11752- 8389 Apr, Unspecified asthma, uncomplicated J45.909 and Hypertension I10 [place] [address] 8[address]64- 3542 Mar, Hypertension I10 [place] [address] 47710- 1959 Mar, Hypertension I10 ; Psychosis, unspecified psychosis type F29 ; Forgetfulness R68.89 and Encounter for immunization Z23 [place] [address] 34370- 2216 Mar, [place] [address] 84688- 5946 Jan, [facility] [address] 38075- 8467 Jan, Psychosis, unspecified psychosis type F29 [place] [address] 04366- 6940 Jan, [facility] [address] [id number] Dec, [place] [address] 18644- 6406 Dec, Dizziness R42 [place] [address] 15099- 3605 Oct, Hypertension I10 ; Allergic rhinitis, unspecified allergic rhinitis type J30.9 and Flea bite of multiple sites W57.XXXA [facility] [address] [place] [id number] [place] [address] 21510- 4585 August, [facility] [address] 60556- 5656 August, Hypertension I10 ; Vertigo R42 ; Abdominal pain, acute, right lower quadrant R10.31 and Unspecified asthma, uncomplicated J45.909 [facility] [address] [place] [id number] [place] [address] 59308- 5517 Aug, Right lower quadrant abdominal pain R10.31 ; Irritable bowel syndrome without diarrhea K58.9 and Essential hypertension I10 [facility] [address] [place] [id number] [place] [address] 80456- 0604 Aug, [facility] [address] [place] [address] [id number] [place] [address] 67296- 6481 Jul, [facility] [id number] [place] [address] 37344- 9724 Jul, [facility] [id number] [place] [address] 01051- 9481 Jul, [facility] [address] [place] [id number] [place] [address] 35483- 9041 Jul, [facility] [address] [place] [id number] [place] [address] 58078- 5929 Jun, [facility] [id number] [place] [address] 95306- 0427 Jun, Abdominal pain, acute, right lower quadrant R10.31 [facility] [id number] [place] [address] 55170- 8260 Jun, [facility] [id number] [place] [address] 72726- 2190 16 Jun, 2016 [facility] [id number] [place] [address] 09841- 0870 Jun, [facility] [id number] [place] [address] 14961- 4053 Apr, [facility] [address] [address] 4004 Apr, Decubitus skin ulcer, stage I L89.91 [facility] [address] [address] 6240 Mar, [facility] [address] [place] [id number] [place] [address] 87330 -4490 Mar, Pressure ulcer, stage II L89.92 [facility] [address] [place] [id number] [place] [address] 31153- 9840 13 Jan, 2016 Wound cellulitis L03.90 [facility] [id number] [place] [address] 10086- 6289 06 Jan, 2016 [facility] [id number] [place] [address] 84979- 8241 Dec, [facility] [address] [id number] [place] [address] 69336- 1379 Oct, Elevated blood pressure I10 and Allergic rhinitis, unspecified allergic rhinitis type J30.9 [facility] [address] [place] [id number] [place] [address] 57797- 6687 August, [facility] [address] [place] [id number] [place] [address] 92815- 2828 August, Right lower quadrant abdominal pain R10.31 and Essential hypertension I10 [facility] [id number] [place] [address] 32493- 0123 August, [facility] [address] [place] [id number] [place] [address] 34256- 5664 August, [facility] [id number] [place] [address] 65489- 0431 Aug, [facility] [address] [place] [id number] [place] [address] 67991- 6983 Aug, Hypertension I10 and Rash R21 [facility] [address] [place] [address] [id number] [place] [address] 73182- 0554 Aug, Gastritis K29.70 [facility] [address] [place] [id number] [place] [address] 48006- 2434 Aug, [facility] [address] [place] [id number] [place] [address] 68547- 6629 Aug, [facility] [address] 95314- 8663 Aug, [facility] [address] 11610- 3095 Aug, Rash R21 ; Vertigo R42 ; Gastritis K29.70 and Urination pain R30.9 [facility] [address] 13331- 2953 Jul, [facility] [address] 26828- 7067 Jul, [place] [address] 33623- 4272 Jul, Hypertension I10 [place] [address] 00300- 4916 Jul, Headache R51 ; Hypertension I10 ; Vaginitis N76.0 and Hypoxemia R09.02 [place] [address] [place] [id number] [place] [address] 71174- 6563 May, [facility] [address] [place] [id number] [place] [address] 09225- 2165 Apr, [facility] [address] 32861- 1870 Jan, Urinary tract infection, site unspecified N39.0 and Encounter for immunization Z23 [facility] [address] [place] [id number] [place] [address] 84019- 3822 Jan, Allergic rhinitis 477.9 ; Abdominal pain 789.00 and Asthma 493.90 [facility] [address] [place] [id number] [place] [address] 76602- 3440 Dec, [facility] [address] 48963- 5755 Dec, [facility] [address], [place] [address]- 3638 Dec, Scabies 133.0 and Snoring 786.09 [facility] [address], [place] [address]- 2877 Oct, Scabies 133.0 [facility] [address], [place] [address]- 2335 Oct, [facility] [address] [place] [id number] [place] [address] 39517- 8586 Oct, [facility] [address] [place] [id number] [place] [address] 57103- 8729 August, Vertigo 780.4 ; Anxiety 300.00 ; Rash 782.1 and Abscess 682.9 [facility] [address], [place] [address]- 0906 August, [facility] [address] [id number] [address]- 7124 Aug, [facility] [address], [place] [address]- 6513 Aug, [facility] [address], [place] [address]- 0643 Jul, [facility] [address], [place] [address]- 4806 Jul, [facility] [address], [place] [address]- 8559 Jul, [facility] [address], [place] [address]- 8852 Jul, [facility] [address], [place] [address]- 7356 Jun, [facility] [address], [place] [address]- 2546 Jun, [facility] [address] [place] [address]- 0686 May, [facility] [address] [id number] [place] [address]- 8583 May, [facility] [place] [facility] [address] [id number] [place] [address]- 2713 Apr, [facility] [address] [id number] [place] [address]- 8505 Apr, [facility] [place] [facility] [address] [id number] [place] [address]- 7680 Apr, [facility] [address] [id number] [place] [address]- 3226 Apr, [facility] [place] [facility] [address] [id number] [place] [address]- 2820 Mar, [facility] [place] [facility] [address] [id number] [place] [address]- 3396 Mar, [facility] [address] [id number] [place] [address]- 5966 Jan, [facility] [place] [facility] [address] [id number] [place] [address]- 1810 Jan, [facility] [address] [id number] [place] [address]- 5831 Jan, [facility] [place] [facility] [address] [id number] [place] [address]- 1309 Jan, [facility] [place] [facility] [address] [id number] [place] [address]- 3383 Jan, [facility] [place] [facility] [address] [id number] [place] [address]- 2293 Jan, [facility] [place] [facility] [address] [id number] [place] [address]- 254 Dec, [facility] [place] [facility] [address] [id number] [place] [address]- 3166 Dec, [facility] [place] [facility] [address] [id number] [place] [address]- 9141 Oct, [facility] [place] [facility] [address] [id number] [place] [address]- 9534 Oct, [facility] [place] [facility] [address] [id number] [place] [address]- 0645 Oct, [facility] [place] [facility] [address] [id number] [place] [address]- 9612 Oct, [facility] [place] [facility] [address] [id number] [place] [address]- 3748 Oct, [facility] [place] [facility] [address] [id number] [place] [address]- 0630 Oct, [facility] [place] [facility] [address] [id number] [place] [address]- 7517 Oct, [facility] [place] [facility] [address] [id number] [place] [address]- 9273 Oct, [facility] [place] [facility] [address] [id number] [place] [address]- 8252 Oct, [facility] [place] [facility] [address] [id number] [place] [address]- 6873 August, [facility] [place] [facility] [address] [id number] [place] [address]- 9108 August, [facility] [place] [facility] [address] [id number] [place] [address]- 0033 Jun, [facility] [place] [facility] [address] [id number] [place] [address]- 6098 Jun, [facility] [place] [facility] [address] [id number] [place] [address]- 4636 Jun, [facility] [place] [facility] [address] [id number] [place] [address]- 8824 Jun, [facility] [place] [facility] [address] [id number] [place] [address]- 7484 Jun, [facility] [address] [id number] [place] [address]- 9806 Apr, [facility] [place] [facility] [address] [id number] [place] [address]- 7586 Apr, [facility] [address] [id number] [place] [address]- 6716 Apr, [facility] [place] [facility] [address] [id number] [place] [address]- 3501 Apr, [facility] [address] [id number] [place] [address]- 4672 Apr, [facility] [address] [id number] [place] [address]- 3636 Apr, [facility] [address] [id number] [place] [address]- 7647 Apr, [facility] [address] [id number] [place] [address]- 2173 Apr, [facility] [place] [facility] [address] [id number] [place] [address]- 6740 Apr, [facility] [address] [id number] [place] [address]- 4967 Apr, [facility] [place] [facility] [address] [id number] [place] [address]- 8826 Apr, [facility] [place] [facility] [address] [id number] [place] [address]- 0240 Apr, [facility] [place] [facility] [address] [id number] [place] [address]- 8041 Dec, [facility] [place] [facility] [address] [id number] [place] [address]- 8366 Dec, [facility] [place] [facility] [address] [id number] [place] [address]- 5045 Jul, [facility] [place] [facility] [address] [id number] [place] [address]- 3513 Jun, [facility] [place] [facility] [address] [id number] [place] [address]- 9190 Jun, [facility] [place] [facility] [address] [id number] [place] [address]- 1354 Oct, [facility] [place] [facility] [address] [id number] [place] [address]- 9922 Jul, [facility] [address] [id number] [place] [address]- 0208 Apr, [facility] [place] [facility] [address] [id number] [place] [address]- 3444 Apr, [facility] [address] [id number] [place] [address]- 4992 Apr, [facility] [address] [id number] [place] [address]- 6404 Mar, [facility] [place] [facility] [address] [id number] [place] [address]- 1344 Jan, [facility] [address] [id number] [place] [address]- 1911 Jan, [facility] [place] [facility] [address] [id number] [place] [address]- 0566 Jan, [facility] [place] [facility] [address] [id number], [place] [address]- 5577 Dec, [facility] [place] [facility] [address] [id number] [place] [address]- 4877 Oct, [facility] [place] [facility] [address] [id number] [place] [address]- 6332 Jan, [facility] [place] [facility] [address] [id number], [place] [address]- 1887 Oct, [facility] [place] [facility] [address] [id number], [place] [address]- 3796 Apr, IMMUNIZATIONS No Known Immunizations SOCIAL HISTORY Never Assessed REASON FOR VISIT med update PLAN OF CARE VITAL SIGNS MEDICATIONS Medication Instructions Dosage Frequency Start Date End Date Duration Status Montelukast Sodium 10 MG TAKE 1 TABLET BY MOUTH IN THE EVENING Active ProAir HFA Inhalation every 6 hrs 2 puffs as needed 6h Active Synthroid 50 MCG Orally Once a day 1 tablet on an empty stomach in the morning 24h Active Trazodone HCl 50 mg Orally Once a day 1 tablet at bedtime 24h Active Zoloft 50 mg Orally Once a day 1 tablet 24h 12 Aug, 2016 Active Propranolol HCl 40 mg Orally Twice a day 1 tablet 12h 15 Jun, 2016 Active RESULTS No Results PROCEDURES No Known [...] 01/06/16 Hospitalization History Suicidal ideation with auditory hallucinations-[facility] Hospitalization History PT was in [place] for two weeks following her stay 12/2016
--- OUTSIDE RECORDS SUMMARY | 2017-12-14 19:41 | XMS REPORT ---
Author Author EDUARDO GRUBER Organization [facility] Address [address] [place] [address] Care Team Providers Care Piece Work Checker Name Role Phone EDUARDO GRUBER Unavailable PROBLEMS Type Condition ICD9-CM Code [id number] Code Onset Dates Condition Status SNOMED Code Problem Headache R51 Active 04302754 Problem Irritable bowel syndrome without diarrhea K58.9 Active 81913837 Problem Hypoxemia R09.02 Active 314552104 Problem Mixed hyperlipidemia E78.2 Active 382084023 Problem Asthma 493.90 Active 171390213 Problem Vaginitis N76.0 Active 87542873 Problem Primary insomnia F51.01 Active 3998772 Problem Acquired hypothyroidism E03.9 Active 974389943 Problem Hypertension I10 Active 28384937 Problem Unspecified asthma, uncomplicated J45.909 Active 38648044 Problem Psychosis, unspecified psychosis type F29 Active 66348818 Problem Allergic rhinitis, unspecified allergic rhinitis type J30.9 Active 11209425 ALLERGIES Substance Reaction Event Type Date Status Penicillin V Potassium Unknown Drug Allergy Jan, Active Hydrocodone-Acetaminophen Unknown Drug Allergy Jan, Active Cyclobenzaprine HCl Unknown Drug Allergy Jan, Active Cipro Unknown Drug Allergy Jan, Active Tramadol Unknown Drug Allergy Jan, Active ENCOUNTERS Encounter Location Date Diagnosis [facility] [address] [facility] [id number] [address] Oct, [facility] [address] [id number] [address] Aug, Onychomycosis B35.1 [facility] [address] [id number] [address] Aug, Mixed hyperlipidemia E78.2 [facility] [address] [place] [id number] [address] Aug, Scabies B86 ; Allergic rhinitis, unspecified allergic rhinitis type J30.9 ; Primary insomnia F51.01 ; Dysuria R30.0 ; Psychosis, unspecified psychosis type F29 ; Acquired hypothyroidism E03.9 and Hypertension I10 [facility] [address] [address] May, Hypertension I10 [place] [address] [address] Apr, Unspecified asthma, uncomplicated J45.909 and Hypertension I10 [place] [address] [address] Mar, Hypertension I10 [place] [address] [address]- [address] Mar, Hypertension I10 ; Psychosis, unspecified psychosis type F29 ; Forgetfulness R68.89 and Encounter for immunization Z23 [place] [address] [address]- [address] Mar, [place] [address] [address]- [address] Jan, [place] [address] [address] Jan, Psychosis, unspecified psychosis type F29 [place] [address] [address] Jan, [place] [address] [id number] Dec, [facility] [address] [address] Dec, Dizziness R42 [place] [address] [address]- [address] Oct, Hypertension I10 ; Allergic rhinitis, unspecified allergic rhinitis type J30.9 and Flea bite of multiple sites W57.XXXA [place] [address] [address] August, [facility] [id number] [place] [address] 6[address]- [address]471 August, Hypertension I10 ; Vertigo R42 ; Abdominal pain, acute, right lower quadrant R10.31 and Unspecified asthma, uncomplicated J45.909 [facility] [id number] [place] [address]13- 5438 Aug, Right lower quadrant abdominal pain R10.31 ; Irritable bowel syndrome without diarrhea K58.9 and Essential hypertension I10 [facility] [id number] [place] [address] 58689- 1003 Aug, [facility] [id number] [place] [address] 45452- 2374 Jul, [facility] [id number] [place] [address]- 7406 Jul, [facility] [id number] [place] [address]483- 6304 Jul, [facility] [id number] [place] [address] 96886- 3870 Jul, [facility] [id number] [place] [address] 01825- 2855 Jun, [facility] [id number] [place] [address] 11716- 4474 Jun, Abdominal pain, acute, right lower quadrant R10.31 [facility] [id number] [place] [address] 43008- 9042 Jun, [facility] [id number] [place] [address] 88934- 5156 16 Jun, 2016 [facility] [id number] [place] [address]98- 8967 15 Jun, 2016 [facility] [id number] [place] [address] 39538- 7567 Apr, [facility] [address], [place] [address] Apr, Decubitus skin ulcer, stage I L89.91 [facility] [id number] [place] [address] 78742- 9188 Mar, [facility] [id number] [place] [address]342 -[address]997 Mar, Pressure ulcer, stage II L89.92 [facility] [id number] [place] [address] 59993- 8358 Jan, Wound cellulitis L03.90 [facility] [id number] [place] [address] 30922- 1168 Jan, [facility] [id number] [place] [address] 50078- 5066 Dec, [facility] [id number] [place] [address] 12787- 0480 Oct, Elevated blood pressure I10 and Allergic rhinitis, unspecified allergic rhinitis type J30.9 [facility] [id number] [place] [address] 76304- 9967 August, [facility] [id number] [place] [address] 55959- 5263 August, Right lower quadrant abdominal pain R10.31 and Essential hypertension I10 [facility] [id number] [place] [address] 92482- 1917 August, [facility] [id number] [place] [address] 28636- 0805 August, [facility] [id number] [place] [address] 12602- 2606 Aug, [facility] [id number] [place] [address] 32446- 7053 Aug, Hypertension I10 and Rash R21 [facility] [id number] [place] [address] 94235- 5050 Aug, Gastritis K29.70 [place] [address] 9[address]18- 8568 Aug, [place] [address] 90216- 0752 Aug, [place] [address] [address]- 8499 Aug, [place] [address] 82980- 3866 Aug, Rash R21 ; Vertigo R42 ; Gastritis K29.70 and Urination pain R30.9 [place] [address] [address]03- 2034 Jul, [place] [address] 06270- 4782 Jul, [place] [address] 02227- 9705 Jul, Hypertension I10 [place] [address] 12912- 9128 Jul, Headache R51 ; Hypertension I10 ; Vaginitis N76.0 and Hypoxemia R09.02 [place] [id number] [place] [address] 59753- 2695 May, [place] [address] 68[address]- 8076 Apr, [place] [address] 33687- 9956 Jan, Urinary tract infection, site unspecified N39.0 and Encounter for immunization Z23 [place] [address] [address]66- 4590 Jan, Allergic rhinitis 477.9 ; Abdominal pain 789.00 and Asthma 493.90 [place] [address], [place] [address] Dec, [facility] [address], [place] [address] Dec, [facility] [address] [address] Dec, Scabies 133.0 and Snoring 786.09 [facility] [id number] [place] [address] 35806- 5954 Oct, Scabies 133.0 [facility] [id number] [place] [address] 56500- 2980 Oct, [facility] [id number] [place] [address] 99901- 9025 Oct, [facility] [id number] [place] [address] 88501- 0327 August, Vertigo 780.4 ; Anxiety 300.00 ; Rash 782.1 and Abscess 682.9 [facility] [address], [place] [address]- 94[address] August, [facility] [address], [place] [address]- 2227 Aug, [facility] [address], [place] [address]- 8061 Aug, [facility] [address], [place] [address]- 9571 Jul, [facility] [address], [place] [address]- 2191 Jul, [facility] [address] 9162 Jul, [facility] [address] 7565 Jul, [facility] [address] [address]- 9452 Jun, 2014 [facility] [place] [facility] [address] [id number] [place] [address]- 6908 Jun, [facility] [place] [facility] [address] [id number] [place] [address]- 2023 May, [facility] [place] [facility] [address] [id number] [place] [address]- 7305 May, [facility] [place] [facility] [address] [id number] [place] [address]- 7433 Apr, [facility] [place] [facility] [address] [id number] [place] [address]- 1716 Apr, [facility] [place] [facility] [address] [id number] [place] [address]- 8785 Apr, [facility] [place] [facility] [address] [id number] [place] [address]- 4418 Apr, [facility] [place] [facility] [address] [id number] [place] [address]- 4158 Mar, [facility] [place] [facility] [address] [id number] [place] [address]- 7758 Mar, [facility] [place] [facility] [address] [id number] [place] [address]- 5031 Jan, [facility] [place] [facility] [address] [id number] [place] [address]- 9077 Jan, [facility] [place] [facility] [address] [id number], [place] [address]- 4852 Jan, [facility] [place] [facility] [address] [id number] [place] [address]- 0873 Jan, [facility] [place] [facility] [address] [id number] [place] [address]- 1503 Jan, [facility] [place] [facility] [address] [id number], [place] [address]- 5538 Jan, [facility] [place] [facility] [address] [id number] [place] [address]- 9129 Dec, [facility] [place] [facility] [address] [id number] [place] [address]- 3590 Dec, [facility] [place] [facility] [address] [id number] [place] [address]- 3918 Oct, [facility] [place] [facility] [address] [id number] [place] [address]- 3967 Oct, [facility] [place] [facility] [address] [id number] [place] [address]- 8948 Oct, [facility] [place] [facility] [address] [id number] [place] [address]- 1639 Oct, [facility] [place] [facility] [address] [id number] [place] [address]- 8253 Oct, [facility] [place] [facility] [address] [id number] [place] [address]- 3111 Oct, [facility] [place] [facility] [address] [id number] [place] [address]- 7613 Oct, [facility] [place] [facility] [address] [id number] [place] [address]- 1466 Oct, [facility] [place] [facility] [address] [id number] [place] [address]- 4073 Oct, [facility] [place] [facility] [address] [id number] [place] [address]- 4356 August, [facility] [place] [facility] [address] [id number] [place] [address]- 3647 August, [facility] [place] [facility] [address] [id number] [place] [address]- 2557 Jun, [facility] [place] [facility] [address] [id number] [place] [address]- 6087 Jun, [facility] [place] [facility] [address] [id number], [place] [address]- 3858 Jun, [facility] [address] [id number] [place] [address]- 6129 Jun, [facility] [address] [id number] [place] [address]- 0676 Jun, [facility] [address] [facility] [id number] [place] [address]- 8386 Apr, [facility] [address] [id number] [place] [address]- 7689 Apr, [facility] [address] [id number] [place] [address]- 8891 Apr, [facility] [address] [id number] [place] [address]- 2304 Apr, [facility] [address] [facility] [id number] [place] [address]- 6552 Apr, [facility] [address] [id number] [place] [address]- 7136 Apr, [facility] [address] [id number] [place] [address]- 0973 Apr, [facility] [address] [facility] [id number] [place] [address]- 7455 Apr, [facility] [address] [id number] [place] [address]- 8563 Apr, [facility] [place] [facility] [address] [id number], [place] [address]- 1775 Apr, [facility] [place] [facility] [address] [id number] [place] [address]- 9418 Apr, [facility] [place] [facility] [address] [facility] [id number] [place] [address]- 0699 Apr, [facility] [place] [facility] [address] [facility] [id number] [place] [address]- 8904 Dec, [facility] [place] [facility] [address] [id number] [place] [address]- 8250 Dec, [facility] [place] [facility] [address] [id number] [place] [address]- 9837 Jul, [facility] [place] [facility] [address] [id number] [place] [address]- 4211 Jun, [facility] [place] [facility] [address] [id number] [place] [address]- 5804 Jun, [facility] [place] [facility] [address] [id number] [place] [address]- 4025 Oct, [facility] [place] [facility] [address] [id number] [place] [address]- 3950 Jul, [facility] [place] [facility] [address] [id number] [place] 3345 Apr, [facility] [place] [facility] [address] [id number] [place] [address]- 1420 Apr, [facility] [place] [facility] [address] [id number] [place] [address]- 1660 Apr, [facility] [place] [facility] [address] [id number] [place] [address]- 8150 Mar, [facility] [place] [facility] [address] [id number] [place] [address]- 9110 Jan, [facility] [place] [facility] [address] [id number] [place] [address]- 5125 Jan, [facility] [place] [facility] [address] [id number] [place] [address]- 4178 Jan, [facility] [place] [facility] [address] [id number] [place] [address]- 5973 Dec, [facility] [place] [facility] [address] [id number] [place] [address]- 4168 Oct, [facility] [place] [facility] [address] [id number] [place] [address]- 9379 Jan, [facility] [address] [facility] [id number] [place] [address]- 8076 Oct, [facility] [address] [facility] [id number] [place] [address]- 2546 Apr, IMMUNIZATIONS No Known Immunizations SOCIAL HISTORY Never Assessed REASON FOR VISIT Blood Pressure, PT has a bg of medications that were before she was in [place] and [place] and she is unsure if she needs to be taking them-Slim DUGGAN, Per [facility]- Pt needed an A1C/ results are 5.8 LOT 0762 EXP 10/2018- Slim DUGGAN PLAN OF CARE Activity Details Follow Up 4 Weeks Reason:med check VITAL SIGNS Height 62 in 2017-02-17 Weight 192.3 lbs 2017-02-17 Temperature 98.2 degrees Fahrenheit 2017-02-17 Heart Rate 76 bpm 2017-02-17 Respiratory Rate 20 2017-02-17 BMI 35.17 kg/m2 2017-02-17 Blood pressure systolic 130 mmHg 2017-02-17 Blood pressure diastolic 82 mmHg 2017-02-17 MEDICATIONS Unknown Medications RESULTS No Results PROCEDURES [...] 01/06/16 Hospitalization History Suicidal ideation with auditory hallucinations-[facility] Hospitalization History [place] was [place] weeks following her [facility] stay 12/2016
--- OUTSIDE RECORDS SUMMARY | 2017-12-14 19:42 | XMS REPORT ---
Author Author EDUARDO GRUBER Organization [facility] Address [address] [place] [address] Care Team Providers Care Architectural Engineer Name Role Phone EDUARDO GRUBER Unavailable PROBLEMS Type Condition ICD9-CM Code [id number] Code Onset Dates Condition Status SNOMED Code Problem Headache R51 Active 76614565 Problem Irritable bowel syndrome without diarrhea K58.9 Active 05391471 Problem Hypoxemia R09.02 Active 318213717 Problem Mixed hyperlipidemia E78.2 Active 595283118 Problem Asthma 493.90 Active 874516502 Problem Vaginitis N76.0 Active 49571401 Problem Primary insomnia F51.01 Active 7325973 Problem Acquired hypothyroidism E03.9 Active 538829282 Problem Hypertension I10 Active 11726019 Problem Unspecified asthma, uncomplicated J45.909 Active 12998264 Problem Psychosis, unspecified psychosis type F29 Active 61396862 Problem Allergic rhinitis, unspecified allergic rhinitis type J30.9 Active 38437301 ALLERGIES No Information ENCOUNTERS Encounter Location Date Diagnosis [id number] [place] [address]64- 5973 Oct, Forgetfulness R68.89 ; Psychosis, unspecified psychosis type F29 ; Acquired hypothyroidism E03.9 ; Mixed hyperlipidemia E78.2 ; Hypertension I10 ; Encounter for immunization Z23 and Breast cancer screening by mammogram Z12.31 [id number] [address] Aug, Onychomycosis B35.[address] [place] [address] 23122- 9600 Aug, Mixed hyperlipidemia E78.[address] [place] [address] 52104- 9789 Aug, Scabies B86 ; Allergic rhinitis, unspecified allergic rhinitis type J30.9 ; Primary insomnia F51.01 ; Dysuria R30.0 ; Psychosis, unspecified psychosis type F29 ; Acquired hypothyroidism E03.9 and Hypertension I10 [place] [address] [address]- [address] May, Hypertension I10 [place] [address] 10353- 9949 Apr, Unspecified asthma, uncomplicated J45.909 and Hypertension I10 [place] [address] 99070- 7063 Mar, Hypertension I10 [place] [address] 80305- 9337 Mar, Hypertension I10 ; Psychosis, unspecified psychosis type F29 ; Forgetfulness R68.89 and Encounter for immunization Z23 [place] [address] [address]- 5733 Mar, [place] [address] [address]- 5023 Jan, [place] [address] 67322- 6098 Jan, Psychosis, unspecified psychosis type F29 [place] [address] 40984- 6192 Jan, [place] [address] [id number] Dec, [place] [address] 56106- 0965 Dec, Dizziness R42 [place] [address] 05387- 4881 Oct, Hypertension I10 ; Allergic rhinitis, unspecified allergic rhinitis type J30.9 and Flea bite of multiple sites W57.XXXA [place] [address] 16575- 5370 August, [facility] [address] [address] August, Hypertension I10 ; Vertigo R42 ; Abdominal pain, acute, right lower quadrant R10.31 and Unspecified asthma, uncomplicated J45.909 [facility] [address] [address] 88[address] Aug, Right lower quadrant abdominal pain R10.31 ; Irritable bowel syndrome without diarrhea K58.9 and Essential hypertension I10 [facility] [id number] [address] Aug, [facility] [id number] [place] [address] 06598- 9044 Jul, [facility] [id number] [place] [address] 34285- 9388 Jul, [facility] [id number] [place] [address] 66563- 4259 Jul, [facility] [address] [place] [address] 20411- 3350 Jul, [facility] [id number] [place] [address] 87683- 5240 Jun, [facility] [address] [address] 1794 Jun, Abdominal pain, acute, right lower quadrant R10.31 [facility] [address] [address] 7704 Jun, [facility] [id number] [place] [address] 27921- 7738 16 Jun, 2016 [facility] [address] [address] 9[address] 15 Jun, 2016 [facility] [address] [address] Apr, [facility] [address] [address]- 0279 Apr, Decubitus skin ulcer, stage I L89.91 [facility] [id number] [place] [address] 70313- 9456 Mar, [facility] [address] [place] [address] 34372 -9529 Mar, Pressure ulcer, stage II L89.92 [facility] [id number] [place] [address]95- 5920 Jan, Wound cellulitis L03.90 [facility] [id number] [place] [address] 67875- 6348 Jan, [facility] [id number] [place] [address] 00735- 8774 Dec, [facility] [id number] [place] [address] 19629- 4896 Oct, Elevated blood pressure I10 and Allergic rhinitis, unspecified allergic rhinitis type J30.9 [place] [id number] [place] [address] 69757- 6270 August, [facility] [id number] [place] [address] 33496- 3578 August, Right lower quadrant abdominal pain R10.31 and Essential hypertension I10 [facility] [id number] [place] [address] 80943- 3396 August, [facility] [id number] [place] [address] 23322- 3590 August, [facility] [id number] [place] [address] 45357- 0496 Aug, [facility] [id number] [place] [address] 62862- 2888 Aug, Hypertension I10 and Rash R21 [facility] [address] [address]- 4786 Aug, Gastritis K29.70 [place] [address] 58720- 2042 Aug, [place] [address] 37532- 0188 Aug, [place] [address] 93085- 2946 Aug, [place] [address] 64055- 3658 Aug, Rash R21 ; Vertigo R42 ; Gastritis K29.70 and Urination pain R30.9 [place] [address] 90163- 6790 Jul, [place] [address] 28052- 2887 Jul, [place] [address] 52065- 6093 Jul, Hypertension I10 [place] [address] 06256- 0437 Jul, Headache R51 ; Hypertension I10 ; Vaginitis N76.0 and Hypoxemia R09.02 [place] [address] 89610- 2368 May, [place] [address] 92311- 4892 Apr, [place] [address] 74193- 0040 Jan, Urinary tract infection, site unspecified N39.0 and Encounter for immunization Z23 [place] [address] 37280- 5400 Jan, Allergic rhinitis 477.9 ; Abdominal pain 789.00 and Asthma 493.90 [place] [address] [place] [address]- 2480 Dec, [facility] [address] [address]- 1857 Dec, [facility] [address] [address]- 9058 Dec, Scabies 133.0 and Snoring 786.09 [facility] [id number] [place] [address] 33348- 6502 Oct, Scabies 133.0 [facility] [id number] [place] [address] 446764- 9114 Oct, [facility] [id number] [place] [address] 82340- 4686 Oct, [facility] [id number] [place] [address] 89045- 4788 August, Vertigo 780.4 ; Anxiety 300.00 ; Rash 782.1 and Abscess 682.9 [facility] [address] [address]- 3224 August, [facility] [id number] [address]- 5724 Aug, [facility] [address] [address]- 6506 Aug, [facility] [address] [address]- 2853 Jul, [facility] [address] 8290 Jul, [facility] [id number] [place] [address] 901858- 2754 Jul, [facility] [address] [address]- 6142 Jul, [facility] [address] [address]881 Jun, [facility] [place] [facility] [address] [id number] [place] [address]- 6537 Jun, [facility] [place] [facility] [address] [id number] [place] [address]- 5196 May, [facility] [place] [facility] [address] [id number] [place] [address]- 8640 May, [facility] [place] [facility] [address] [id number] [place] [address]- 9080 Apr, [facility] [place] [facility] [address] [id number] [place] [address]- 2083 Apr, [facility] [place] [facility] [address] [id number] [place] [address]- 2350 Apr, [facility] [place] [facility] [address] [id number] [place] [address]- 5766 Apr, [facility] [place] [facility] [address] [id number] [place] [address]- 9116 Mar, [facility] [place] [facility] [address] [id number] [place] [address]- 6880 Mar, [facility] [place] [facility] [address] [id number] [place] [address]- 2849 Jan, [facility] [place] [facility] [address] [id number] [address]- 8364 Jan, [facility] [place] [facility] [address] [id number] [address]- 5924 Jan, [facility] [place] [facility] [address] [id number] [place] [address]- 2543 Jan, [facility] [place] [facility] [address] [id number] [address]- 4202 Jan, [facility] [place] [facility] [address] [id number] [place] [address]- 254 Jan, [facility] [place] [facility] [address] [id number] [place] [address]- 5138 Dec, [facility] [place] [facility] [address] [id number] [place] [address]- 0024 Dec, [facility] [place] [facility] [address] [id number] [place] [address]- 5891 Oct, [facility] [place] [facility] [address] [id number] [place] [address]- 6566 Oct, [facility] [place] [facility] [address] [id number] [place] [address]- 1673 Oct, [facility] [place] [facility] [address] [id number] [place] [address]- 7862 Oct, [facility] [place] [facility] [address] [id number] [place] [address]- 9970 Oct, [facility] [place] [facility] [address] [id number] [place] [address]- 6877 Oct, [facility] [place] [facility] [address] [id number] [place] [address]- 1350 Oct, [facility] [place] [facility] [address] [id number] [place] [address]- 8412 Oct, [facility] [place] [facility] [address] [id number] [place] [address]- 4854 Oct, [facility] [place] [facility] [address] [id number] [place] [address]- 8017 August, [facility] [place] [facility] [address] [id number] [place] [address]- 6185 August, [facility] [place] [facility] [address] [id number] [place] [address]79 Jun, [facility] [place] [facility] [address] [id number] [place] [address]- 4630 Jun, [facility] [place] [facility] [address] [id number] [place] 1706 Jun, [facility] [address] [id number] [place] [address]- 4605 Jun, [facility] [place] [facility] [address] [id number] [place] [address]- 9976 Jun, [facility] [address] [id number] [place] [address]- 0826 Apr, [facility] [place] [facility] [address] [id number] [place] [address]- 5806 Apr, [facility] [address] [id number] [place] [address]- 4309 Apr, [facility] [address] [id number] [place] [address]- 3583 Apr, [facility] [address] [id number] [place] [address]- 0706 Apr, [facility] [address] [id number] [place] [address]- 7128 Apr, [facility] [address] [id number] [place] [address]- 7889 Apr, [facility] [address] [id number] [place] [address]- 8346 Apr, [facility] [place] [facility] [address] [id number] [place] [address]- 7931 Apr, [facility] [place] [facility] [address] [id number] [address]- 6267 Apr, [facility] [place] [facility] [address] [id number] [place] [address]- 7566 Apr, [facility] [place] [facility] [address] [id number] [address]- 7599 Apr, [facility] [place] [facility] [address] [facility] [id number] [place] [address]- 5155 Dec, [facility] [place] [facility] [address] [id number] [place] [address]- 9349 Dec, [facility] [place] [facility] [address] [id number] [place] [address]- 1775 Jul, [facility] [place] [facility] [address] [id number] [place] [address]- 1033 Jun, [facility] [place] [facility] [address] [id number] [place] [address]- 3759 Jun, [facility] [place] [facility] [address] [id number] [place] [address]- 0942 Oct, [facility] [place] [facility] [address] [id number] [place] [address]- 6771 Jul, [facility] [place] [facility] [address] [id number] [place] [address]- 9916 Apr, [facility] [place] [facility] [address] [id number] [place] [address]- 3363 Apr, [facility] [place] [facility] [address] [id number] [place] [address]- 6175 Apr, [facility] [place] [facility] [address] [id number] [place] [address]- 9506 Mar, [facility] [place] [facility] [address] [facility] 3] [id number] [place] [address]- 5094 Jan, [facility] [place] [facility] [address] [id number] [place] [address]- 0294 Jan, [facility] [place] [facility] [address] [id number] [place] [address]- 3641 Jan, [facility] [place] [facility] [address] [id number] [place] [address]- 3700 Dec, [facility] [place] [facility] [address] [id number] [place] [address]- 1536 Oct, [facility] [place] [facility] [address] [id number] [place] [address]- 1786 Jan, [facility] [address] [facility] 3] [id number] [place] [address]- 7770 Oct, [facility] [address] [facility]NOTE 3] [id number] [address]- 7585 Apr, IMMUNIZATIONS No Known Immunizations SOCIAL HISTORY Never Assessed REASON FOR VISIT Refill request PLAN OF CARE VITAL SIGNS MEDICATIONS Medication Instructions Dosage Frequency Start Date End Date Duration Status Propranolol HCl 40 MG Orally Twice a day 1 tablet 12h 15 Jun, 2016 30 days Active RESULTS No Results PROCEDURES No [...] 01/06/16 Hospitalization History Suicidal ideation with auditory hallucinations-[facility] Hospitalization History PT was in [place] for two weeks following her stay 12/2016
--- OUTSIDE RECORDS SUMMARY | 2017-12-14 19:43 | XMS REPORT ---
Author Author EDUARDO GRUBER Organization [facility] [place] Address [address] [place] [address] Care Team Providers Care Channel Lip Stiffener Insoles Name Role Phone EDUARDO GRUBER Unavailable PROBLEMS Type Condition ICD9-CM Code FPH31-XI Code Onset Dates Condition Status SNOMED Code Problem Headache R51 Active 62474446 Problem Irritable bowel syndrome without diarrhea K58.9 Active 59920814 Problem Hypoxemia R09.02 Active 233325806 Problem Mixed hyperlipidemia E78.2 Active 184232938 Problem Asthma 493.90 Active 833918622 Problem Vaginitis N76.0 Active 79085426 Problem Primary insomnia F51.01 Active 9187276 Problem Acquired hypothyroidism E03.9 Active 268748521 Problem Hypertension I10 Active 86513996 Problem Unspecified asthma, uncomplicated J45.909 Active 63316496 Problem Psychosis, unspecified psychosis type F29 Active 68428610 Problem Allergic rhinitis, unspecified allergic rhinitis type J30.9 Active 68899962 ALLERGIES No Information ENCOUNTERS Encounter Location Date Diagnosis [place] [id number] [place] [address]66- 8583 Oct, [place] [id number] [place] [address] 79757- 6234 August, [place] [id number] [place] [address] 59158- 6719 Aug, Onychomycosis B35.[address] [address]- 3515 Aug, Mixed hyperlipidemia E78.2 [place] [id number] [place] [address] 73706- 9106 Aug, Scabies B86 ; Allergic rhinitis, unspecified allergic rhinitis type J30.9 ; Primary insomnia F51.01 ; Dysuria R30.0 ; Psychosis, unspecified psychosis type F29 ; Acquired hypothyroidism E03.9 and Hypertension I10 [facility] [place] [address] [address]- [address] May, Hypertension I10 [facility] [place] [address] 47325- 5592 Apr, Unspecified asthma, uncomplicated J45.909 and Hypertension I10 [facility] [place] [address] 42561- 3562 Mar, Hypertension I10 [place] [address] 12130- 7771 Mar, Hypertension I10 ; Psychosis, unspecified psychosis type F29 ; Forgetfulness R68.89 and Encounter for immunization Z23 [place] [address] 04677- 7838 Mar, [facility] [place] [address] 62945- 8332 Jan, [facility] [place] [address] 77975- 8845 Jan, Psychosis, unspecified psychosis type F29 [facility] [place] [address] 84313- 4487 Jan, [facility] [address] [id number] Dec, [facility] [place] [address] 99696- 9515 Dec, Dizziness R42 [facility] [place] [address] 11323- 6936 Oct, Hypertension I10 ; Allergic rhinitis, unspecified allergic rhinitis type J30.9 and Flea bite of multiple sites W57.XXXA [facility] [place] [address] 14473- 7638 August, [facility] [place] [address] [address] August, Hypertension I10 ; Vertigo R42 ; Abdominal pain, acute, right lower quadrant R10.31 and Unspecified asthma, uncomplicated J45.909 [facility] [place] [id number] [address] 12 Aug, 2016 Right lower quadrant abdominal pain R10.31 ; Irritable bowel syndrome without diarrhea K58.9 and Essential hypertension I10 [facility] [place] [id number] [address] 2[address] Aug, [facility] [place] [id number] [place] [address] 85027- 6128 Jul, [facility] [place] [id number] [place] [address] 27106- 1652 Jul, [facility] [place] [id number] [place] [address] 85519- 1198 Jul, [facility] [place] [id number] [place] [address] 65192- 0657 Jul, [facility] [place] [id number] [place] [address] 43183- 3299 Jun, [facility] [place] [address] [address]- 5[address] Jun, Abdominal pain, acute, right lower quadrant R10.31 [facility] [place] [address] [address]- 4144 Jun, [facility] [place] [address] [address]- 1266 16 Jun, 2016 [facility] [place] [id number] [address]- 9980 15 Jun, 2016 [facility] [place] [address] [address]- 6746 Apr, [facility] [place] [id number] [place] [address] 24432- 8453 Apr, Decubitus skin ulcer, stage I L89.91 [facility] [place] [id number] [place] [address] 17421- 9476 Mar, [facility] [id number] [place] [address] 21789 -6513 Mar, Pressure ulcer, stage II L89.92 [facility] [place] [id number] [place] [address] 30822- 1179 Jan, Wound cellulitis L03.90 [facility] [place] [id number] [place] [address] 77001- 6756 Jan, [facility] [place] [id number] [place] [address] 32021- 2689 Dec, [facility] [place] [id number] [place] [address] 71538- 6476 Oct, Elevated blood pressure I10 and Allergic rhinitis, unspecified allergic rhinitis type J30.9 [facility] [place] [id number] [place] [address] 94412- 8905 August, [facility] [place] [id number] [place] [address] 25175- 2827 August, Right lower quadrant abdominal pain R10.31 and Essential hypertension I10 [facility] [place] [id number] [place] [address] 55031- 4438 August, [facility] [place] [id number] [place] [address] 91663- 8723 August, [facility] [place] [id number] [place] [address] 77797- 1566 Aug, [facility] [place] [id number] [place] [address] 70397- 4264 Aug, Hypertension I10 and Rash R21 [facility] [place] [id number] [place] [address] 02065- 5238 Aug, Gastritis K29.70 [place] [address] 39977- 7557 Aug, [place] [address] 74177- 4410 Aug, [place] [address] 55284- 8715 Aug, [place] [address] 11557- 7319 Aug, Rash R21 ; Vertigo R42 ; Gastritis K29.70 and Urination pain R30.9 [place] [address] 40973- 7243 Jul, [place] [address] 71086- 1171 Jul, [place] [address] 62879- 6095 Jul, Hypertension I10 [place] [address] 68318- 3853 Jul, Headache R51 ; Hypertension I10 ; Vaginitis N76.0 and Hypoxemia R09.02 [place] [id number] [place] [address] 62382- 7894 May, [place] [address] 81140- 1628 Apr, [place] [address] 04687- 8231 Jan, Urinary tract infection, site unspecified N39.0 and Encounter for immunization Z23 [place] [address] 17734- 8035 Jan, Allergic rhinitis 477.9 ; Abdominal pain 789.00 and Asthma 493.90 [place] [address] 39000- 0595 Dec, [facility] [place] [address] [address]- 1182 Dec, [facility] [place] [id number] [place] [address] 69606- 8696 Dec, Scabies 133.0 and Snoring 786.09 [facility] [place] [id number] [address]- 5723 Oct, Scabies 133.0 [facility] [place] [id number] [place] [address] 30247- 3503 Oct, [facility] [place] [id number] [place] [address] 45214- 4733 Oct, [facility] [place] [id number] [address]- 0845 August, Vertigo 780.4 ; Anxiety 300.00 ; Rash 782.1 and Abscess 682.9 [facility] [place] [address] [address]- 9094 August, [facility] [place] [address] [address]- 1327 Aug, [facility] [place] [id number] [address]- 0548 Aug, [facility] [place] [address] [address]- 9745 Jul, [facility] [place] [address] [address]- 9767 Jul, [facility] [place] [address] [address]- 9036 Jul, [facility] [place] [address] [address]- 6734 Jul, [facility] [place] [id number] 8757 Jun, [facility] [place] [id number] [address]- 6342 Jun, [facility] [address] [id number] [place] [address]- 3108 May, [facility] [place] [facility] [address] [id number] [place] [address]- 3628 May, [facility] [address] [id number] [place] [address]- 6743 Apr, [facility] [place] [facility] [address] [id number] [place] [address]- 7974 Apr, [facility] [address] [id number] [place] [address]- 0360 Apr, [facility] [place] [facility] [address] [id number] [place] [address]- 8322 Apr, [facility] [place] [facility] [address] [id number] [place] [address]- 5127 Mar, [facility] [place] [facility] [address] [id number] [place] [address]- 2817 Mar, [facility] [place] [facility] [address] [id number] [place] [address]- 4754 Jan, [facility] [place] [facility] [address] [facility] [id number] [place] [address]- 0524 Jan, [facility] [place] [facility] [address] [id number] [place] [address]- 0881 Jan, [facility] [place] [facility] [address] [id number] [place] [address]- 4711 Jan, [facility] [place] [facility] [address] [id number] [place] [address]- 2606 Jan, [facility] [place] [facility] [address] [id number] [place] [address]- 8556 Jan, [facility] [place] [facility] [address] [id number] [place] [address]- 7220 Dec, [facility] [place] [facility] [address] [id number] [place] [address]- 3514 Dec, [facility] [place] [facility] [address] [id number] [place] [address]- 2700 Oct, [facility] [place] [facility] [address] [id number] [place] [address]- 9923 Oct, [facility] [place] [facility] [address] [id number] [place] [address]- 8934 Oct, [facility] [place] [facility] [address] [id number] [place] [address]- 1058 Oct, [facility] [place] [facility] [address] [id number] [place] [address]- 0313 Oct, [facility] [place] [facility] [address] [id number] [place] [address]- 8418 Oct, [facility] [place] [facility] [address] [id number] [place] [address]- 5208 Oct, [facility] [place] [facility] [address] [id number] [place] [address]- 1714 Oct, [facility] [place] [facility] [address] [id number] [place] [address]- 5180 Oct, [facility] [place] [facility] [address] [id number] [place] [address]- 7153 August, [facility] [place] [facility] [address] [id number] [place] [address]- 4043 August, [facility] [place] [facility] [address] [id number] [place] [address]- 7135 Jun, [facility] [place] [facility] [address] [id number] [place] [address]- 0208 Jun, [facility] [place] [facility] [address] [id number] [place] 7671 Jun, [facility] [place] [facility] [address] [id number] [place] [address]- 4981 Jun, [facility] [address] [id number] [place] [address]- 6686 Jun, [facility] [place] [facility] [address] [id number] [place] [address]- 0706 Apr, [facility] [address] [id number] [place] [address]- 6626 Apr, [facility] [place] [facility] [address] [id number] [place] [address]- 7035 Apr, [facility] [address] [id number] [place] [address]- 0885 Apr, [facility] [place] [facility] [address] [id number] [place] [address]- 2516 Apr, [facility] [address] [id number] [place] [address]- 2993 Apr, [facility] [place] [facility] [address] [id number] [place] [address]- 8684 Apr, [facility] [place] [facility] [address] [id number] [place] [address]- 3694 Apr, [facility] [place] [facility] [address] [facility] [id number] [place] [address]- 0672 Apr, [facility] [place] [facility] [address] [id number] [place] [address]- 7488 Apr, [facility] [place] [facility] [address] [id number] [place] [address]- 0200 Apr, [facility] [place] [facility] [address] [id number] [place] [address]- 8429 Apr, [facility] [place] [facility] [address] [id number] [place] [address]- 2002 Dec, [facility] [place] [facility] [address] [id number] [place] [address]- 6148 Dec, [facility] [place] [facility] [address] [id number] [place] [address]- 0738 Jul, [facility] [place] [facility] [address] [id number] [place] [address]- 2045 Jun, [facility] [place] [facility] [address] [id number] [place] [address]- 2473 Jun, [facility] [place] [facility] [address] [id number] [place] [address]- 9145 Oct, [facility] [address] [id number] [place] [address]- 4390 Jul, [facility] [place] [facility] [address] [id number] [place] [address]- 0724 Apr, [facility] [place] [facility] [address] [id number] [place] [address]- 0540 Apr, [facility] [place] [facility] [address] [id number] [place] [address]- 4132 Apr, [facility] [place] [facility] [address] [id number] [place] [address]- 8873 Mar, [facility] [place] [facility] [address] [id number] [place]- 5479 Jan, [facility] [place] [facility] [address] [id number] [place] [address]- 1731 Jan, [facility] [place] [facility] [address] [id number], [place] [address]- 2994 Jan, [facility] [place] [facility] [address] [id number] [place] [address]- 9575 Dec, [facility] [place] [facility] [address] [id number] [place] [address]- 7427 Oct, [facility] [place] [facility] [address] [id number] [place] [address]- 3207 Jan, [facility] [place] [facility] [address] [id number], [place] [address]- 2546 Oct, [facility] [place] [address] [facility] [id number] [place] [address]- 6176 Apr, IMMUNIZATIONS No Known Immunizations SOCIAL HISTORY Never Assessed REASON FOR VISIT Refill request/Denied until records received PLAN OF CARE VITAL SIGNS MEDICATIONS Unknown [...]
--- OUTSIDE RECORDS SUMMARY | 2017-12-14 19:44 | XMS REPORT ---
Author Author EDUARDO GRUBER Organization [facility] Address [address] [place] [address] Care Team Providers Care Thread Milling Machine Set Up Operator Name Role Phone EDUARDO GRUBER Unavailable PROBLEMS Type Condition ICD9-CM Code RWR37-GI Code Onset Dates Condition Status SNOMED Code Problem Headache R51 Active 90469628 Problem Irritable bowel syndrome without diarrhea K58.9 Active 29917896 Problem Hypoxemia R09.02 Active 621614146 Problem Mixed hyperlipidemia E78.2 Active 059632640 Problem Asthma 493.90 Active 130595034 Problem Vaginitis N76.0 Active 14632048 Problem Primary insomnia F51.01 Active 5367957 Problem Acquired hypothyroidism E03.9 Active 112545316 Problem Hypertension I10 Active 51905120 Problem Unspecified asthma, uncomplicated J45.909 Active 96271334 Problem Psychosis, unspecified psychosis type F29 Active 14568377 Problem Allergic rhinitis, unspecified allergic rhinitis type J30.9 Active 38088584 ALLERGIES Substance Reaction Event Type Date Status Penicillin V Potassium Unknown Drug Allergy Mar, Active Hydrocodone-Acetaminophen Unknown Drug Allergy Mar, Active Cyclobenzaprine HCl Unknown Drug Allergy Mar, Active Cipro Unknown Drug Allergy Mar, Active Tramadol Unknown Drug Allergy Mar, Active ENCOUNTERS Encounter Location Date Diagnosis [facility] [id number] [address] Oct, [facility] [address] [id number] [address] Aug, Onychomycosis B35.1 [facility] [address] [id number] [address] Aug, Mixed hyperlipidemia E78.2 [facility] [address] [place] [id number] [address] Aug, Scabies B86 ; Allergic rhinitis, unspecified allergic rhinitis type J30.9 ; Primary insomnia F51.01 ; Dysuria R30.0 ; Psychosis, unspecified psychosis type F29 ; Acquired hypothyroidism E03.9 and Hypertension I10 [facility] [address] [address] May, Hypertension I10 [place] [address] [address] Apr, Unspecified asthma, uncomplicated J45.909 and Hypertension I10 [place] [address] [address] Mar, Hypertension I10 [place] [address] [address]- [address] Mar, Hypertension I10 ; Psychosis, unspecified psychosis type F29 ; Forgetfulness R68.89 and Encounter for immunization Z23 [place] [address] [address] Mar, [place] [address] [address] Jan, [place] [address] [address] Jan, Psychosis, unspecified psychosis type F29 [place] [address] [address] Jan, [place] [address] [id number] Dec, [facility] [address] [address] Dec, Dizziness R42 [place] [address] [address] Oct, Hypertension I10 ; Allergic rhinitis, unspecified allergic rhinitis type J30.9 and Flea bite of multiple sites W57.XXXA [place] [id number] [place] [address] August, [facility] [id number] [place] [address]- [address]68 August, Hypertension I10 ; Vertigo R42 ; Abdominal pain, acute, right lower quadrant R10.31 and Unspecified asthma, uncomplicated J45.909 [facility] [id number] [place] [address] 77365- 0342 Aug, Right lower quadrant abdominal pain R10.31 ; Irritable bowel syndrome without diarrhea K58.9 and Essential hypertension I10 [facility] [id number] [place] [address] 87044- 1497 Aug, [facility] [id number] [place] [address] 16124- 7051 Jul, [facility] [id number] [place] [address] 13517- 0250 Jul, [facility] [id number] [place] [address] 75[address]- 0012 Jul, [facility] [id number] [place] [address] 16365- 2898 Jul, [facility] [id number] [place] [address] 79076- 1206 Jun, [facility] [id number] [place] [address] 24536- 5834 Jun, Abdominal pain, acute, right lower quadrant R10.31 [facility] [id number] [place] [address] 71834- 5953 Jun, [facility] [id number] [place] [address] 16708- 0739 16 Jun, 2016 [facility] [id number] [place] [address] 85906- 5008 15 Jun, 2016 [facility] [id number] [place] [address] 28187- 0875 Apr, [facility] [address] [address] Apr, Decubitus skin ulcer, stage I L89.91 [facility] [id number] [place] [address] 55895- 6862 Mar, [facility] [id number] [place] [address] 8[address]15 -[address]9 Mar, Pressure ulcer, stage II L89.92 [facility] [id number] [place] [address] 20542- 6952 Jan, Wound cellulitis L03.90 [facility] [id number] [place] [address] 64347- 6634 Jan, [facility] [id number] [place] [address] 57447- 9154 Dec, [facility] [id number] [place] [address] 88159- 6503 Oct, Elevated blood pressure I10 and Allergic rhinitis, unspecified allergic rhinitis type J30.9 [facility] [id number] [place] [address] 16576- 7686 August, [facility] [id number] [place] [address] 67533- 1361 August, Right lower quadrant abdominal pain R10.31 and Essential hypertension I10 [facility] [id number] [place] [address] 75715- 4848 August, [facility] [id number] [place] [address] 07484- 6526 August, [facility] [id number] [place] [address] 57993- 7437 Aug, [facility] [id number] [place] [address] 02525- 3786 Aug, Hypertension I10 and Rash R21 [facility] [id number] [place] [address] 59091- 7719 Aug, Gastritis K29.70 [place] [address] [address]- [address] Aug, [place] [address] [address]- 2969 Aug, [place] [address] [address]- [address]78 Aug, [place] [address] [address]- 5818 Aug, Rash R21 ; Vertigo R42 ; Gastritis K29.70 and Urination pain R30.9 [place] [address] 7[address]94- 1161 Jul, [place] [address] 5[address]- 8232 Jul, [place] [address] [address]- 8223 Jul, Hypertension I10 [place] [address] [address]- 1917 Jul, Headache R51 ; Hypertension I10 ; Vaginitis N76.0 and Hypoxemia R09.02 [place] [id number] [place] [address] 92205- 3058 May, [place] [address] 8[address]42- 1147 Apr, [place] [address] [address]- 9452 Jan, Urinary tract infection, site unspecified N39.0 and Encounter for immunization Z23 [place] [address] 10[address]- 9645 Jan, Allergic rhinitis 477.9 ; Abdominal pain 789.00 and Asthma 493.90 [place] [address] [address] Dec, [facility] [address] [address] Dec, [facility] [address] Dec, Scabies 133.0 and Snoring 786.09 [facility] [id number] [place] [address] 78534- 2743 Oct, Scabies 133.0 [facility] [id number] [place] [address] 58739- 3472 Oct, [facility] [id number] [place] [address] 43113- 1270 Oct, [facility] [id number] [place] [address] 32634- 5879 August, Vertigo 780.4 ; Anxiety 300.00 ; Rash 782.1 and Abscess 682.9 [facility] [address] [address]- 2569 August, [facility] [address], [place] [address]- 6[address] Aug, [facility] [address], [place] [address]- 3776 Aug, [facility] [address], [place] [address]- 0970 Jul, [facility] [address], [place] [address]- 2919 Jul, [facility] [address] 9[address] Jul, [facility] [address] [address] Jul, [facility] [address] [place] [address]- [address] Jun, 2014 [facility] [place] [facility] [address] [id number] [place] [address]- 3203 Jun, [facility] [place] [facility] [address] [id number] [place] [address]- 2894 May, [facility] [place] [facility] [address] [id number] [place] [address]- 5540 May, [facility] [place] [facility] [address] [id number] [place] [address]- 5762 Apr, [facility] [place] [facility] [address] [id number] [place] [address]- 2595 Apr, [facility] [place] [facility] [address] [id number] [place] [address]- 3984 Apr, [facility] [place] [facility] [address] [id number] [place] [address]- 2942 Apr, [facility] [place] [facility] [address] [id number] [place] [address]- 2198 Mar, [facility] [place] [facility] [address] [id number] [place] [address]- 9057 Mar, [facility] [place] [facility] [address] [id number] [place] [address]- 8228 Jan, [facility] [place] [facility] [address] [id number] [place] [address]- 7529 Jan, [facility] [place] [facility] [address] [id number] [address]- 1678 Jan, [facility] [place] [facility] [address] [id number] [place] [address]- 5877 Jan, [facility] [place] [facility] [address] [id number] [place] [address]- 7516 Jan, [facility] [place] [facility] [address] [id number], [place] [address]- 1593 Jan, [facility] [place] [facility] [address] [id number] [place] [address]- 7713 Dec, [facility] [place] [facility] [address] [id number] [place] [address]- 0907 Dec, [facility] [place] [facility] [address] [id number] [place] [address]- 8624 Oct, [facility] [place] [facility] [address] [id number] [place] [address]- 1160 Oct, [facility] [place] [facility] [address] [id number] [place] [address]- 9808 Oct, [facility] [place] [facility] [address] [id number] [place] [address]- 4941 Oct, [facility] [place] [facility] [address] [id number] [place] [address]- 8805 Oct, [facility] [place] [facility] [address] [id number] [place] [address]- 3834 Oct, [facility] [place] [facility] [address] [id number] [place] [address]- 5845 Oct, [facility] [place] [facility] [address] [id number] [place] [address]- 5832 Oct, [facility] [place] [facility] [address] [id number] [place] [address]- 6988 Oct, [facility] [place] [facility] [address] [id number] [place] [address]- 6892 August, [facility] [place] [facility] [address] [id number] [place] [address]- 9604 August, [facility] [place] [facility] [address] [id number] [place] [address]- 3374 Jun, [facility] [place] [facility] [address] [id number] [place] [address]- 1999 Jun, [facility] [place] [facility] [address] [id number] [address]- 5666 Jun, [facility] [address] [id number] [place] [address]- 8206 Jun, [facility] [address] [id number] [place] [address]- 2246 Jun, [facility] [address] [facility] [id number] [place] [address]- 3466 Apr, [facility] [address] [id number] [place] [address]- 9534 Apr, [facility] [address] [id number] [place] [address]- 7975 Apr, [facility] [address] [id number] [place] [address]- 9364 Apr, [facility] [address] [facility] [id number] [place] [address]- 1310 Apr, [facility] [address] [id number] [place] [address]- 9874 Apr, [facility] [address] [id number] [place] [address]- 2324 Apr, [facility] [address] [facility] [id number] [place] [address]- 1102 Apr, [facility] [address] [id number] [place] [address]- 8796 Apr, [facility] [place] [facility] [address] [id number], [place] [address]- 6589 Apr, [facility] [place] [facility] [address] [id number] [place] [address]- 5002 Apr, [facility] [place] [facility] [address] [facility] [id number] [place] [address]- 7458 Apr, [facility] [place] [facility] [address] [facility] [id number] [place] [address]- 3906 Dec, [facility] [place] [facility] [address] [id number] [place] [address]- 4068 Dec, [facility] [place] [facility] [address] [id number] [place] [address]- 8273 Jul, [facility] [place] [facility] [address] [id number] [place] [address]- 9422 Jun, [facility] [place] [facility] [address] [id number] [place] [address]- 7436 Jun, [facility] [place] [facility] [address] [id number] [place] [address]- 5355 Oct, [facility] [place] [facility] [address] [id number] [place] [address]- 7282 Jul, [facility] [place] [facility] [address] [id number] [place] 4182 Apr, [facility] [place] [facility] [address] [id number] [place] [address]- 2745 Apr, [facility] [place] [facility] [address] [id number] [place] [address]- 4181 Apr, [facility] [place] [facility] [address] [id number] [place] [address]- 9860 Mar, [facility] [place] [facility] [address] [id number] [place] [address]- 3758 Jan, [facility] [place] [facility] [address] [id number] [place] [address]- 4256 Jan, [facility] [place] [facility] [address] [id number] [place] [address]- 5672 Jan, [facility] [place] [facility] [address] [id number] [place] [address]- 5335 Dec, [facility] [place] [facility] [address] [id number] [place] [address]- 7102 Oct, [facility] [place] [facility] [address] [id number] [place] [address]- 0125 Jan, [facility] [address] [facility] [id number] [place] [address]- 5080 Oct, [facility] [address] [facility] [id number] [place] [address]- 2216 Apr, IMMUNIZATIONS Vaccine Route Administration Date Status FLUARIX QUAD (3 AND UP) 2016 IM Intramuscular Mar 22, 2017 Administered SOCIAL HISTORY Never Assessed REASON FOR VISIT Blood Pressure-Slim DUGGAN PLAN OF CARE Activity Details Follow Up 3 Months Reason:forgetfulness VITAL SIGNS Height 62 in 2017-03-22 Weight 197.5 lbs 2017-03-22 Temperature 97.9 degrees Fahrenheit 2017-03-22 Heart Rate 76 bpm 2017-03-22 Respiratory Rate 18 2017-03-22 BMI 36.12 kg/m2 2017-03-22 Blood pressure systolic 122 mmHg 2017-03-22 Blood pressure diastolic 78 mmHg 2017-03-22 MEDICATIONS Medication Instructions Dosage Frequency Start Date End Date Duration Status Omeprazole 40 MG Orally Once a day 1 capsule 24h August, 90 days Active Aripiprazole 10 MG Orally 2 times a day 1 tablet 12h Not-Taking Trazodone HCl 50 MG Orally Once a day 1 tablet at bedtime 24h Active Flonase 50 MCG/ACT Nasally twice a day 1 spray in each nostril 12h Mar, 30 day(s) Active ProAir HFA Active Singulair 10 MG Orally Once a day 1 tablet in the evening 24h 90 Not -Taking Synthroid 50 MCG Orally Once a day 1 tablet on an empty stomach in the morning 24h Not-Taking Cetirizine HCl 10 mg Orally Once a day 1 tablet 24h 21 Oct, 2016 90 days Active Zoloft 50 mg Orally Once a day 1 tablet 24h 12 Aug, 2016 90 Active Propranolol HCl 40 MG Orally Twice a day 1 tablet 12h 15 Jun, 2016 Active RESULTS No Results PROCEDURES Procedure Date Ordered Result Body Site FLUARIX QUAD (3 AND UP) 2016Mar 22, 2017 SINGLE IMMUNIZATION ADMIN Mar 22, 2017 INSTRUCTIONS MEDICATIONS ADMINISTERED No Known Medications [...] 01/06/16 Hospitalization History Suicidal ideation with auditory hallucinations-[facility] Hospitalization History PT was in [place] for two weeks following her stay 12/2016
--- OUTSIDE RECORDS SUMMARY | 2017-12-14 19:45 | XMS REPORT ---
Author Author EDUARDO GRUBER Organization [facility] Address [address] [place] [address] Care Team Providers Care Mixer Pigment Name Role Phone EDUARDO GRUBER Unavailable PROBLEMS Type Condition ICD9-CM Code IVS83-TD Code Onset Dates Condition Status SNOMED Code Problem Asthma 493.90 Active 043217189 Problem Headache R51 Active 52504778 Problem Vaginitis N76.0 Active 62456571 Problem Psychosis, unspecified psychosis type F29 Active 43023913 Problem Allergic rhinitis, unspecified allergic rhinitis type J30.9 Active 34536032 Problem Irritable bowel syndrome without diarrhea K58.9 Active 52759261 Problem Hypoxemia R09.02 Active 123636274 Problem Hypertension I10 Active 30779537 Problem Unspecified asthma, uncomplicated J45.909 Active 99216568 ALLERGIES Substance Reaction Event Type Date Status Penicillin V Potassium Unknown Drug Allergy Oct, Active Hydrocodone-Acetaminophen Unknown Drug Allergy Oct, Active Cyclobenzaprine HCl Unknown Drug Allergy Oct, Active Cipro Unknown Drug Allergy Oct, Active Tramadol Unknown Drug Allergy Oct, Active ENCOUNTERS Encounter Location Date Diagnosis [facility] [id number] [place] [address]88- 3612 Aug, [facility] [id number] [place] [address] 65533- 8563 May, Hypertension I10 [facility] [address] [place] [id number] [place] [address] 89816- 6296 Apr, Unspecified asthma, uncomplicated J45.909 and Hypertension I10 [facility] [id number] [place] [address] 16710- 3670 Mar, Hypertension I10 [facility] [id number] [place] [address] 98099- 1449 Mar, Hypertension I10 ; Psychosis, unspecified psychosis type F29 ; Forgetfulness R68.89 and Encounter for immunization Z23 [place] [id number] [address]- [address] Mar, [facility] [address] [address]84- 1789 Jan, [place] [address] 41151- 2398 Jan, Psychosis, unspecified psychosis type F29 [place] [address] 26[address]- 0480 Jan, [place] [address] [id number] Dec, [place] [address] 07545- 6205 Dec, Dizziness R42 [place] [address] 78565- 1804 Oct, Hypertension I10 ; Allergic rhinitis, unspecified allergic rhinitis type J30.9 and Flea bite of multiple sites W57.XXXA [place] [address] [place] [id number] [place] [address] 97381- 9757 August, [place] [address] 35714- 0926 August, Hypertension I10 ; Vertigo R42 ; Abdominal pain, acute, right lower quadrant R10.31 and Unspecified asthma, uncomplicated J45.909 [place] [address] 29781- 9247 Aug, Right lower quadrant abdominal pain R10.31 ; Irritable bowel syndrome without diarrhea K58.9 and Essential hypertension I10 [place] [address] 03508- 8558 Aug, [place] [address] 92898- 4184 Jul, [facility] [address] [address] 28[address] Jul, [facility] [address] [address] 7218 Jul, [facility] [id number] [address]- 7943 Jul, [facility] [id number] [place] [address] 06065- 0506 Jun, [facility] [id number] [place] [address] 97275- 8715 Jun, Abdominal pain, acute, right lower quadrant R10.31 [facility] [address] [address] 8952 Jun, [facility] [id number] [place] [address] 56221- 4467 16 Jun, 2016 [facility] [address] [address] 8993 Jun, [facility] [address] [address] 9404 Apr, [facility] [address] [address] 1508 Apr, Decubitus skin ulcer, stage I L89.91 [facility] [address] [address] 3[address] Mar, [facility] [address] [address] Mar, Pressure ulcer, stage II L89.92 [facility] [id number] [address]- 7344 13 Jan, 2016 Wound cellulitis L03.90 [facility] [address] [address]- 4909 Jan, [facility] [address] 99848- 7450 Dec, [facility] [address] 04666- 4574 Oct, Elevated blood pressure I10 and Allergic rhinitis, unspecified allergic rhinitis type J30.9 [place] [address] 93940- 7969 August, [facility] [address] 07155- 9131 August, Right lower quadrant abdominal pain R10.31 and Essential hypertension I10 [place] [address] 21991- 3262 August, [place] [address] 53107- 9987 August, [place] [address] 16205- 8566 Aug, [place] [address] 00040- 2598 Aug, Hypertension I10 and Rash R21 [place] [address] 98977- 9618 Aug, Gastritis K29.70 [place] [address] 20236- 9238 Aug, [place] [address] 43512- 1237 Aug, [place] [address] 96593- 0687 Aug, [place] [address] 27555- 2544 Aug, Rash R21 ; Vertigo R42 ; Gastritis K29.70 and Urination pain R30.9 [place] [address] [place] [address]- 3080 Jul, [facility] [address] 82921- 4553 Jul, [facility] [address] 14382- 6921 Jul, Hypertension I10 [place] [address] 70992- 5065 Jul, Headache R51 ; Hypertension I10 ; Vaginitis N76.0 and Hypoxemia R09.02 [facility] [address] 06546- 7932 May, [place] [address] 68311- 5138 Apr, [place] [address] 65473- 3168 Jan, Urinary tract infection, site unspecified N39.0 and Encounter for immunization Z23 [place] [address] [place] [id number] [place] [address] 92842- 4390 Jan, Allergic rhinitis 477.9 ; Abdominal pain 789.00 and Asthma 493.90 [place] [address] [place] [id number] [place] [address] 58768- 4864 Dec, [place] [address] [place] [id number] [place] [address] 34195- 0436 Dec, [facility] [address] 60846- 3386 Dec, Scabies 133.0 and Snoring 786.09 [place] [address] 24688- 6005 Oct, Scabies 133.0 [facility] [address] 68279- 5045 Oct, [facility] [address] 38811- 8836 Oct, [facility] [address] [place] [id number] [address]- 4708 August, Vertigo 780.4 ; Anxiety 300.00 ; Rash 782.1 and Abscess 682.9 [facility] [address] [facility] [id number] [address]- 2296 August, [facility] [address] [place] [address] [id number] [place] [address] 27754- 0905 Aug, [facility] [address] [place] [id number] [address]- 9007 Aug, [facility] [address] [address] [id number] [place] [address] 59408- 7626 Jul, [facility] [address] [address]- 1916 Jul, [facility] [address] [address] [id number] [place] [address] 75117- 9616 Jul, [facility] [address] [address]- 0396 Jul, [facility] [address] [address]- 8506 Jun, [facility] [address] [address]- 8496 Jun, [facility] [address] [address]- 7476 May, [facility] [id number] [address]- 2026 May, [facility] [address] [address]- 9216 Apr, [facility] [address] [id number] [address]- 6066 Apr, [facility] [address] [address]- 6828 Apr, [facility] [place] [facility] [address] [id number] [place] [address]- 9398 Apr, [facility] [place] [facility] [address] [id number] [place] [address]- 9734 Mar, [facility] [place] [facility] [address] [id number] [place] [address]- 2424 Mar, [facility] [place] [facility] [address] [id number] [place] [address]- 6050 Jan, [facility] [place] [facility] [address] [id number] [place] [address]- 7438 Jan, [facility] [place] [facility] [address] [id number] [place] [address]- 2916 Jan, [facility] [place] [facility] [address] [id number] [place] [address]- 1951 Jan, [facility] [place] [facility] [address] [id number] [place] [address]- 4918 Jan, [facility] [place] [facility] [address] [id number] [place] [address]- 7025 Jan, [facility] [place] [facility] [address] [id number] [place] [address]- 9545 Dec, [facility] [place] [facility] [address] [id number] [place] [address]- 9763 Dec, [facility] [place] [facility] [address] [id number] [place] [address]- 3521 Oct, [facility] [place] [facility] [address] [id number] [place] [address]- 3794 Oct, [facility] [place] [facility] [address] [id number] [place] [address]- 4195 Oct, [facility] [place] [facility] [address] [id number] [place] [address]- 6908 Oct, [facility] [place] [facility] [address] [id number] [place] [address]- 2158 15 Oct, 2013 [facility] [place] [facility] [address] [id number] [place] [address]- 6227 Oct, [facility] [place] [facility] [address] [id number] [place] [address]- 4298 Oct, [facility] [place] [facility] [address] [id number] [place] [address]- 3050 Oct, [facility] [place] [facility] [address] [id number] [place] [address]- 0707 Oct, [facility] [place] [facility] [address] [id number] [place] [address]- 3347 August, [facility] [place] [facility] [address] [facility] [id number] [place] [address]- 8016 August, [facility] [place] [facility] [address] [id number] [place] [address]- 9115 Jun, [facility] [place] [facility] [address] [id number] [place] [address]- 8004 Jun, [facility] [place] [facility] [address] [id number] [place] [address]- 4284 Jun, [facility] [place] [facility] [address] [id number] [place] [address]- 2763 Jun, [facility] [place] [facility] [address] [id number] [place] [address]- 0731 Jun, [facility] [place] [facility] [address] [id number] [place] [address]- 3978 Apr, [facility] [place] [facility] [address] [id number] [place] [address]- 7364 Apr, [facility] [place] [facility] [address] [id number] [place] [address]- 1456 Apr, [facility] [place] [facility] [address] [id number] [place] [address]- 3106 Apr, [facility] [address] [id number] [place] [address]- 9229 Apr, [facility] [place] [facility] [address] [id number] [place] [address]- 3360 Apr, [facility] [place] [facility] [address] [id number] [place] [address]- 7146 Apr, [facility] [place] [facility] [address] [id number] [place] [address]- 5052 Apr, [facility] [address] [id number] [place] [address]- 3557 Apr, [facility] [address] [id number] [place] [address]- 8908 Apr, [facility] [address] [id number] [place] [address]- 3817 Apr, [facility] [place] [facility] [address] [id number] [place] [address]- 9747 Apr, [facility] [address] [id number] [place] [address]- 2358 Dec, [facility] [place] [facility] [address] [id number] [place] [address]- 7024 Dec, [facility] [place] [facility] [address] [id number] [place] [address]- 3232 Jul, [facility] [place] [facility] [address] [id number] [address]- 0433 Jun, [facility] [place] [facility] [address] [id number] [place] [address]- 1096 Jun, [facility] [place] [facility] [address] [id number] [place] [address]- 0534 Oct, [facility] [place] [facility] [address] [id number] [place] [address] 2543 Jul, [facility] [place] [facility] [address] [address]- 2546 Apr, [facility] [address] [address]- 1116 Apr, [facility] [address] [address]- 2546 Apr, [facility] [address] [address]- 1759 Mar, [facility] [address] [address]- 2994 Jan, [facility] [id number] [place] [address] 11947- 4811 Jan, [facility] [address] [address]- 7365 Jan, [facility] [id number] [place] [address] 80965- 1032 Dec, [facility] [address] [address]- 7851 Oct, [facility] [address] [address]- 8505 Jan, [facility] [address] [address]- 7167 Oct, [facility] [address] [address]- 4251 Apr, IMMUNIZATIONS No Known Immunizations SOCIAL HISTORY Never Assessed REASON FOR VISIT blood pressure- Harvinder Cortes RN PLAN OF CARE Activity Details Follow Up 6 Months Reason:BP VITAL SIGNS Height 62 in 2016-10-21 Weight 191 lbs 2016-10-21 Temperature 97.2 degrees Fahrenheit 2016-10-21 Heart Rate 82 bpm 2016-10-21 Respiratory Rate 18 2016-10-21 BMI 34.93 kg/m2 2016-10-21 Blood pressure systolic 122 mmHg 2016-10-21 Blood pressure diastolic 82 mmHg 2016-10-21 MEDICATIONS Medication Instructions Dosage Frequency Start Date End Date Duration Status Naproxen 500 MG TAKE 1 TABLET BY MOUTH TWICE DAILY WITH FOOD 30 90 Active Cetirizine HCl 10 MG TAKE 1 TABLET BY MOUTH DAILY FOR ITCHING 30 Active ProAir HFA 108 (90 Base) MCG/ACT INHALE TWO PUFFS BY MOUTH EVERY 6 HOURS NEEDED FOR SHORTNESS OF BREATH OR COUGH Active Zoloft 50 mg Orally Once a day 1 tablet 24h 12 Aug, 2016 30 Active Amitriptyline HCl 25 MG TAKE 3 TABLETS BY MOUTH AT BEDTIME NEEDED FOR SLEEP OR PAIN 30 30 Active Fluticasone Propionate 50 MCG/ACT INSTILL ONE SPRAY INTO EACH NOSTRIL TWICE DAILY 30 Active Cetirizine HCl 10 mg Orally Once a day 1 tablet 24h 21 Oct, 2016 Apr, 90 days Active Meclizine HCl 12.5 MG TAKE 1 TABLET BY MOUTH ONCE A DAY NEEDED FOR DIZZINESS 30 Active Singulair 10 MG Orally Once a day 1 tablet in the evening 24h 90 Active Ranitidine HCl 150 MG Orally 2 times a day 1 tablet 12h 90 days Active Propranolol HCl 60 mg Orally Twice a day 1 tablet 12h 15 Jun, 2016 90 days Active RESULTS Name Result Date Reference Range LIPID PANEL 2016-10-21 Cholesterol, Total 209 100-199 Triglycerides 159 0-149 HDL Cholesterol 48 >39 VLDL Cholesterol [place] 32 5-40 LDL Cholesterol Calc 129 0-99 Comment: CMP 2016-10-21 Glucose, Serum 101 65-99 BUN 22 6-24 Creatinine, Serum 0.80 0.57-1.00 eGFR If NonAfricn Am 83 >59 eGFR If Africn Am 96 >59 BUN/Creatinine Ratio 28 9-23 Sodium, Serum 143 134-144 Potassium, Serum 4.5 3.5-5.2 Chloride, Serum 105 96-106 Carbon Dioxide, Total 20 18-29 Calcium, Serum 9.5 8.7-10.2 Protein, Total, Serum 7.3 6.0-8.5 Albumin, Serum 4.4 3.5-5.5 Globulin, Total 2.9 1.5-4.5 A/G Ratio 1.5 1.2-2.2 Bilirubin, Total <0.2 0.0-1.2 Alkaline Phosphatase, S 56 39-117 AST (SGOT) 14 0-40 ALT (SGPT) 15 0-32 PROCEDURES Procedure Date Ordered Result Body Site LAB NOT BILLED BY [facility] October 21, 2016 VENIPUNCT, ROUTINE* October 21, 2016 INSTRUCTIONS MEDICATIONS ADMINISTERED No Known Medications MEDICAL [...] 01/06/16 Hospitalization History Suicidal ideation with auditory hallucinations-[facility] Hospitalization History PT was in [place] for two weeks following her stay 12/2016
--- OUTSIDE RECORDS SUMMARY | 2017-12-14 19:45 | XMS REPORT ---
Author Author EDUARDO GRUBER Organization [facility] Address [address] [place] [address] Care Team Providers Care Insurance Administrative Assistant Name Role Phone EDUARDO GRUBER Unavailable PROBLEMS Type Condition ICD9-CM Code [id number] Code Onset Dates Condition Status SNOMED Code Problem Headache R51 Active 90259881 Problem Irritable bowel syndrome without diarrhea K58.9 Active 44502499 Problem Hypoxemia R09.02 Active 035771413 Problem Mixed hyperlipidemia E78.2 Active 267647879 Problem Asthma 493.90 Active 108057225 Problem Vaginitis N76.0 Active 39703410 Problem Primary insomnia F51.01 Active 7545864 Problem Acquired hypothyroidism E03.9 Active 971039695 Problem Hypertension I10 Active 91768738 Problem Unspecified asthma, uncomplicated J45.909 Active 31029741 Problem Psychosis, unspecified psychosis type F29 Active 60469342 Problem Allergic rhinitis, unspecified allergic rhinitis type J30.9 Active 57348082 ALLERGIES No Information ENCOUNTERS Encounter Location Date Diagnosis [place] [id number] [place] [address] 75943- 1180 Oct, [place] [id number] [place] [address] 78524- 7924 Aug, Onychomycosis B35.1 [place] [id number] [place] [address] 92556- 0397 Aug, Mixed hyperlipidemia E78.[address] [address]- 5093 Aug, Scabies B86 ; Allergic rhinitis, unspecified allergic rhinitis type J30.9 ; Primary insomnia F51.01 ; Dysuria R30.0 ; Psychosis, unspecified psychosis type F29 ; Acquired hypothyroidism E03.9 and Hypertension I10 [id number] [place] [address] 52201- 9573 May, Hypertension I10 [facility] [address] 9[address]70- 4641 Apr, Unspecified asthma, uncomplicated J45.909 and Hypertension I10 [place] [address] 53020- 6332 Mar, Hypertension I10 [place] [address] 08951- 0031 Mar, Hypertension I10 ; Psychosis, unspecified psychosis type F29 ; Forgetfulness R68.89 and Encounter for immunization Z23 [place] [address] 40962- 0769 Mar, [place] [address] 23622- 7570 Jan, [facility] [address] 36693- 1946 Jan, Psychosis, unspecified psychosis type F29 [place] [address] 57197- 1232 Jan, [facility] [address] [id number] Dec, [place] [address] 12394- 6258 Dec, Dizziness R42 [place] [address] 07812- 1429 Oct, Hypertension I10 ; Allergic rhinitis, unspecified allergic rhinitis type J30.9 and Flea bite of multiple sites W57.XXXA [facility] [address] [place] [id number] [place] [address] 66698- 6060 August, [facility] [address] 95683- 7803 August, Hypertension I10 ; Vertigo R42 ; Abdominal pain, acute, right lower quadrant R10.31 and Unspecified asthma, uncomplicated J45.909 [facility] [address] [place] [id number] [place] [address] 59842- 4974 Aug, Right lower quadrant abdominal pain R10.31 ; Irritable bowel syndrome without diarrhea K58.9 and Essential hypertension I10 [facility] [address] [id number] [place] [address] 12646- 7514 Aug, [facility] [address] [place] [id number] [place] [address] 78691- 9622 Jul, [facility] [address] [place] [id number] [place] [address] 32850- 2857 Jul, [facility] [address] [place] [id number] [place] [address] 94422- 4064 Jul, [facility] [address] [place] [id number] [place] [address] 58906- 7941 Jul, [facility] [address] [place] [id number] [place] [address] 90250- 0302 Jun, [facility] [address] [place] [id number] [place] [address] 23031- 1434 Jun, Abdominal pain, acute, right lower quadrant R10.31 [facility] [address] [place] [id number] [place] [address] 49329- 0277 Jun, [facility] [address] [place] [id number] [place] [address] 07040- 7558 16 Jun, 2016 [facility] [id number] [place] [address] 03922- 5751 Jun, [facility] [address] [place] [id number] [place] [address] 15675- 2682 Apr, [facility] [address] [address] 4040 Apr, Decubitus skin ulcer, stage I L89.91 [facility] [address] [address]- 1708 Mar, [facility] [address] [place] [id number] [place] [address] 06834 -3277 Mar, Pressure ulcer, stage II L89.92 [facility] [address] [place] [id number] [place] [address] 71870- 0048 13 Jan, 2016 Wound cellulitis L03.90 [facility] [address] [place] [address] [id number] [place] [address] 75492- 6657 06 Jan, 2016 [facility] [address] [place] [id number] [place] [address] 53553- 9186 Dec, [facility] [address] [place] [id number] [place] [address] 45182- 1651 Oct, Elevated blood pressure I10 and Allergic rhinitis, unspecified allergic rhinitis type J30.9 [facility] [address] [place] [id number] [place] [address] 19936- 1313 August, [facility] [address] [place] [id number] [place] [address] 25205- 9558 August, Right lower quadrant abdominal pain R10.31 and Essential hypertension I10 [facility] [address] [place] [id number] [place] [address] 80095- 2853 August, [facility] [address] [place] [id number] [place] [address] 63682- 0029 August, [facility] [address] [place] [id number] [place] [address] 99613- 5428 Aug, [facility] [address] [place] [id number] [place] [address] 50823- 5914 Aug, Hypertension I10 and Rash R21 [facility] [address] [place] [id number] [place] [address] 18905- 3853 Aug, Gastritis K29.70 [facility] [address] [place] [id number] [place] [address] 32087- 9756 Aug, [facility] [address] [place] [id number] [place] [address] 31145- 9805 Aug, [facility] [address] 12296- 4931 Aug, [facility] [address] 97338- 3420 Aug, Rash R21 ; Vertigo R42 ; Gastritis K29.70 and Urination pain R30.9 [facility] [address] 02934- 3024 Jul, [facility] [address] 31463- 9913 Jul, [place] [address] 55567- 2075 Jul, Hypertension I10 [place] [address] 64416- 6617 Jul, Headache R51 ; Hypertension I10 ; Vaginitis N76.0 and Hypoxemia R09.02 [place] [address] [place] [id number] [place] [address] 21291- 3868 May, [facility] [address] [place] [id number] [place] [address] 43674- 4536 Apr, [facility] [address] 30238- 0506 Jan, Urinary tract infection, site unspecified N39.0 and Encounter for immunization Z23 [facility] [address] [place] [id number] [place] [address] 37638- 7480 Jan, Allergic rhinitis 477.9 ; Abdominal pain 789.00 and Asthma 493.90 [facility] [address] [place] [id number] [place] [address] 58511- 5981 Dec, [facility] [address] 83870- 5361 Dec, [facility] [address] [address]- 6330 Dec, Scabies 133.0 and Snoring 786.09 [facility] [address] [address]- 7949 Oct, Scabies 133.0 [facility] [address] [address]- 7830 Oct, [facility] [address] [place] [id number] [place] [address] 11880- 6808 Oct, [facility] [address] [place] [id number] [place] [address] 69899- 7367 August, Vertigo 780.4 ; Anxiety 300.00 ; Rash 782.1 and Abscess 682.9 [facility] [address] [address]- 8076 August, [facility] [address] [id number] [address]- 1328 Aug, [facility] [address] [address]- 7191 Aug, [facility] [address] [address]- 1190 Jul, [facility] [address] [address]- 3046 Jul, [facility] [address] [address]- 5105 Jul, [facility] [address] [address]- 3179 Jul, [facility] [address] [address]- 6296 Jun, [facility] [address] [address]- 2546 Jun, [facility] [address] [place] [address]- 0283 May, [facility] [address] [id number] [place] [address]- 8331 May, [facility] [place] [facility] [address] [id number] [place] [address]- 4352 Apr, [facility] [address] [id number] [place] [address]- 5223 Apr, [facility] [place] [facility] [address] [id number] [place] [address]- 4597 Apr, [facility] [address] [id number] [place] [address]- 8245 Apr, [facility] [place] [facility] [address] [id number] [place] [address]- 4431 Mar, [facility] [place] [facility] [address] [id number] [place] [address]- 8887 Mar, [facility] [address] [id number] [place] [address]- 9502 Jan, [facility] [place] [facility] [address] [id number] [place] [address]- 2769 Jan, [facility] [address] [id number] [place] [address]- 5181 Jan, [facility] [place] [facility] [address] [id number] [place] [address]- 0880 Jan, [facility] [place] [facility] [address] [id number] [place] [address]- 4354 Jan, [facility] [place] [facility] [address] [id number] [place] [address]- 6213 Jan, [facility] [place] [facility] [address] [id number] [place] [address]- 2540 Dec, [facility] [place] [facility] [address] [id number] [place] [address]- 4056 Dec, [facility] [place] [facility] [address] [id number] [place] [address]- 1217 Oct, [facility] [place] [facility] [address] [id number] [place] [address]- 4727 Oct, [facility] [place] [facility] [address] [id number] [place] [address]- 4938 Oct, [facility] [place] [facility] [address] [id number] [place] [address]- 2771 Oct, [facility] [place] [facility] [address] [id number] [place] [address]- 2217 Oct, [facility] [place] [facility] [address] [id number] [place] [address]- 4845 Oct, [facility] [place] [facility] [address] [id number] [place] [address]- 5831 Oct, [facility] [place] [facility] [address] [id number] [place] [address]- 5197 Oct, [facility] [place] [facility] [address] [id number] [place] [address]- 8556 Oct, [facility] [place] [facility] [address] [id number] [place] [address]- 0163 August, [facility] [place] [facility] [address] [id number] [place] [address]- 7424 August, [facility] [place] [facility] [address] [id number] [place] [address]- 3285 Jun, [facility] [place] [facility] [address] [id number] [place] [address]- 2588 Jun, [facility] [place] [facility] [address] [id number] [place] [address]- 6386 Jun, [facility] [place] [facility] [address] [id number] [place] [address]- 4979 Jun, [facility] [place] [facility] [address] [id number] [place] [address]- 0771 Jun, [facility] [address] [id number] [place] [address]- 1336 Apr, [facility] [place] [facility] [address] [id number] [place] [address]- 5116 Apr, [facility] [address] [id number] [place] [address]- 3106 Apr, [facility] [place] [facility] [address] [id number] [place] [address]- 0214 Apr, [facility] [address] [id number] [place] [address]- 6589 Apr, [facility] [address] [id number] [place] [address]- 5794 Apr, [facility] [address] [id number] [place] [address]- 0747 Apr, [facility] [address] [id number] [place] [address]- 3814 Apr, [facility] [place] [facility] [address] [id number] [place] [address]- 4588 Apr, [facility] [address] [id number] [place] [address]- 3717 Apr, [facility] [place] [facility] [address] [id number] [place] [address]- 4536 Apr, [facility] [place] [facility] [address] [id number] [place] [address]- 1162 Apr, [facility] [place] [facility] [address] [id number] [place] [address]- 6334 Dec, [facility] [place] [facility] [address] [id number] [place] [address]- 4226 Dec, [facility] [place] [facility] [address] [id number] [place] [address]- 1926 Jul, [facility] [place] [facility] [address] [id number] [place] [address]- 8318 Jun, [facility] [place] [facility] [address] [id number] [place] [address]- 5765 Jun, [facility] [place] [facility] [address] [id number] [place] [address]- 0551 Oct, [facility] [place] [facility] [address] [id number] [place] [address]- 2602 Jul, [facility] [address] [id number] [place] [address]- 2316 Apr, [facility] [place] [facility] [address] [id number] [place] [address]- 0585 Apr, [facility] [address] [id number] [place] [address]- 6346 Apr, [facility] [address] [id number] [place] [address]- 9068 Mar, [facility] [place] [facility] [address] [id number] [place] [address]- 1351 Jan, [facility] [address] [id number] [place] [address]- 4920 Jan, [facility] [place] [facility] [address] [id number] [place] [address]- 5661 Jan, [facility] [place] [facility] [address] [id number] [address]- 6982 Dec, [facility] [place] [facility] [address] [id number] [place] [address]- 2215 Oct, [facility] [place] [facility] [address] [id number] [place] [address]- 5333 Jan, [facility] [place] [facility] [address] [id number] [address]- 1623 Oct, [facility] [place] [facility] [address] [id number] [address]354 Apr, IMMUNIZATIONS No Known Immunizations SOCIAL HISTORY Never Assessed REASON FOR VISIT Refill request PLAN OF CARE VITAL SIGNS MEDICATIONS Medication Instructions Dosage Frequency Start Date End Date Duration Status Trazodone HCl 50 mg Orally Once a day 1 tablet at bedtime 24h 30 days Active Omeprazole 40 MG Orally Once a day 1 capsule 24h August, 90 days Active Cetirizine HCl 10 mg Orally Once a day 1 tablet 24h 21 Oct, 2016 90 days Active Zoloft 50 mg Orally Once a day 1 tablet 24h 12 Aug, 2016 90 Active Propranolol HCl 40 mg Orally Twice a day 1 tablet 12h 15 Jun, 2016 30 days Active ProAir HFA Inhalation every 6 hrs 2 puffs as needed 6h 30 days Active RESULTS No Results PROCEDURES [...] History Suicidal ideation with auditory hallucinations-[facility] Hospitalization History PT was in [place] for two weeks following her stay 12/2016
--- OUTSIDE RECORDS SUMMARY | 2017-12-14 19:46 | XMS REPORT ---
Author Author EDUARDO GRUBER Organization [facility] Address [address] [place] [address] Care Team Providers Care Front End Web Designer Name Role Phone EDUARDO GRUBER Unavailable PROBLEMS Type Condition ICD9-CM Code RUI34-YT Code Onset Dates Condition Status SNOMED Code Problem Headache R51 Active 07480195 Problem Irritable bowel syndrome without diarrhea K58.9 Active 61294399 Problem Hypoxemia R09.02 Active 160792314 Problem Mixed hyperlipidemia E78.2 Active 913302663 Problem Asthma 493.90 Active 124076586 Problem Vaginitis N76.0 Active 34791169 Problem Primary insomnia F51.01 Active 7201249 Problem Acquired hypothyroidism E03.9 Active 717741662 Problem Hypertension I10 Active 41427042 Problem Unspecified asthma, uncomplicated J45.909 Active 48096522 Problem Psychosis, unspecified psychosis type F29 Active 60196406 Problem Allergic rhinitis, unspecified allergic rhinitis type J30.9 Active 14295521 ALLERGIES No Information ENCOUNTERS Encounter Location Date Diagnosis [facility] [address] [place] [address] Aug, Scabies B86 ; Allergic rhinitis, unspecified allergic rhinitis type J30.9 ; Primary insomnia F51.01 ; Dysuria R30.0 ; Psychosis, unspecified psychosis type F29 ; Acquired hypothyroidism E03.[address] [facility] [address] [address] May, [address]10 [facility] [address] [place] [address]- [address] Apr, Unspecified asthma, uncomplicated J45.[address] [facility] [address] [place] [address]70- 6223 Mar, Hypertension I10 [place] [id number] [place] [address]18- 8514 Mar, Hypertension I10 ; Psychosis, unspecified psychosis type F29 ; Forgetfulness R68.89 and Encounter for immunization Z23 [place] [address] [address] [id number] [place] [address]- 0522 Mar, [place] [address] [address] Jan, [place] [address] [address]- [address]606 Jan, Psychosis, unspecified psychosis type F29 [address] [address]- [address] Jan, [place] [address] [id number] Dec, [address] [address]- [address]267 Dec, Dizziness R42 [address] [address]- [address] Oct, Hypertension I10 ; Allergic rhinitis, unspecified allergic rhinitis type J30.9 and Flea bite of multiple sites W57.[place] [id number] [place] [address]- [address]229 August, [address] [address]- [address] August, Hypertension I10 ; Vertigo R42 ; Abdominal pain, acute, right lower quadrant R10.31 and Unspecified asthma, uncomplicated J45.[address] [address]- [address] Aug, Right lower quadrant abdominal pain R10.31 ; Irritable bowel syndrome without diarrhea K58.9 and Essential hypertension I10 [address] [address] Aug, [facility] [address] [place] [address] Jul, [facility] [address] [place] [address] Jul, [facility] [address] [address] Jul, [facility] [address] [place] [address], [place] [address] Jul, [facility] [id number] [place] [address] Jun, [facility] [address] [place] [address], [place] [address]- [address] Jun, Abdominal pain, acute, right lower quadrant R10.31 [facility] [id number] [place] [address] Jun, [facility] [id number] [place] [address]- [address]34 16 Jun, [address] [facility] [address] [place] [address], [place] [address]- [address] Jun, [facility] [address] [address] Apr, [facility] [address], [place] [address] Apr, Decubitus skin ulcer, stage I L89.91 [facility] [id number] [place] [address] Mar, [facility] [address] [address] Mar, Pressure ulcer, stage II L89.92 [facility] [id number] [place] [address]- [address]67 13 Jan, [address] [facility] [id number] [place] [address]86- [address]8 Jan, [facility] [address] [address] Dec, [facility] [id number] [place] [address] 10845- 0803 Oct, Elevated blood pressure I10 and Allergic rhinitis, unspecified allergic rhinitis type J30.9 [facility] [address] [address]- [address] August, [facility] [address] [address]- 7477 August, Right lower quadrant abdominal pain R10.31 and Essential hypertension I10 [facility] [address] [address]- [address] August, [facility] [address] [address]- [address] August, [facility] [id number] [place] [address] 11877- 2845 Aug, [facility] [address] 23[address]- 9444 Aug, Hypertension I10 and Rash R21 [facility] [id number] [place] [address] 50814- 2754 Aug, Gastritis K29.70 [facility] [id number] [place] [address] 23725- 8281 Aug, [facility] [address] [place] [address] 11581- 4971 Aug, [facility] [id number] [place] [address]15- 4697 Aug, [facility] [id number] [place] [address] 02826- 5636 Aug, Rash R21 ; Vertigo R42 ; Gastritis K29.70 and Urination pain R30.9 [place] [address] 9[address]78- 9001 Jul, [place] [address] 9[address]- 7888 Jul, [place] [address] 94720- 7372 Jul, Hypertension I10 [place] [address] 32352- 0193 Jul, Headache R51 ; Hypertension I10 ; Vaginitis N76.0 and Hypoxemia R09.02 [place] [address] [address]- 7240 May, [place] [address] 11362- 6626 Apr, [place] [address] 90415- 8867 Jan, Urinary tract infection, site unspecified N39.0 and Encounter for immunization Z23 [place] [address] 0[address]- 5717 Jan, Allergic rhinitis 477.9 ; Abdominal pain 789.00 and Asthma 493.90 [place] [address] 13710- 3957 Dec, [place] [address] 50813- 6062 Dec, [place] [address] 55398- 7222 Dec, Scabies 133.0 and Snoring 786.09 [place] [address] 03247- 9766 Oct, Scabies 133.0 [place] [address] [address]- 3952 Oct, [facility] [address], [place] [address] Oct, [facility] [address], [place] [address]- 5890 August, Vertigo 780.4 ; Anxiety 300.00 ; Rash 782.1 and Abscess 682.9 [facility] [address], [place] [address] August, [facility] [address] [facility] [id number] [address] Aug, [facility] [id number] [place] [address] 35118- [address]50 Aug, [facility] [address] [address]- 9867 Jul, [facility] [address] [place] [address]- [address]79 Jul, [facility] [address], [place] [address]- 7799 Jul, [facility] [address], [place] [address]- 1783 Jul, [facility] [address], [place] [address]- 5356 Jun, [facility] [address], [place] [address]- 7476 Jun, [facility] [id number], [place] [address]- 6676 May, [facility] [id number] [address]- 9126 May, [facility] [id number] [address]- 5406 Apr, [facility] [id number] [address]- 3236 Apr, [facility] [place] [facility] [address] [id number] [place] [address]- 8086 Apr, [facility] [place] [facility] [address] [id number] [place] [address]- 4256 Apr, [facility] [place] [facility] [address] [id number] [place] [address]- 2546 Mar, [facility] [place] [facility] [address] [id number] [place] [address]- 2546 Mar, [facility] [place] [facility] [address] [id number] [place] [address]- 1049 Jan, [facility] [place] [facility] [address] [id number] [place] [address]- 3246 Jan, [facility] [place] [facility] [address] [id number] [place] [address]- 9286 Jan, [facility] [place] [facility] [address] [id number] [place] [address]- 4846 Jan, [facility] [place] [facility] [address] [id number] [place] [address]- 7498 Jan, [facility] [place] [facility] [address] [id number] [place] [address]- 6156 Jan, [facility] [place] [facility] [address] [id number], [place] [address]- 2816 Dec, [facility] [place] [facility] [address] [id number] [address]- 2548 Dec, [facility] [place] [facility] [address] [id number] [place] [address]- 5633 Oct, [facility] [place] [facility] [address] [id number] [place] [address]- 5463 Oct, [facility] [place] [facility] [address] [id number] [place] [address]- 2540 Oct, [facility] [place] [facility] [address] [id number] [place] [address]- 6025 15 Oct, 2013 [facility] [place] [facility] [address] [id number] [place] [address]- 9563 Oct, [facility] [place] [facility] [address] [id number] [place] [address]- 2686 Oct, [facility] [place] [facility] [address] [id number] [place] [address]- 5126 Oct, [facility] [place] [facility] [address] [id number] [place] [address]- 5099 Oct, [facility] [place] [facility] [address] [id number] [place] [address] Oct, [facility] [place] [facility] [address] [id number] [place] [address]- 5179 August, [facility] [place] [facility] [address] [id number] [place] [address]- 8940 August, [facility] [place] [facility] [address] [id number] [place] [address]- 0791 Jun, [facility] [place] [facility] [address] [id number] [place] [address]- 3149 Jun, [facility] [place] [facility] [address] [id number] [place] [address]- 5199 Jun, [facility] [place] [facility] [address] [id number] [place] [address]- 2734 Jun, [facility] [place] [facility] [address] [id number] [place] [address]- 9903 Jun, [facility] [place] [facility] [address] [id number] [place] [address]- 3108 Apr, [facility] [place] [facility] [address] [id number] [place] [address]- 0706 Apr, [facility] [place] [facility] [address] [id number] [place] [address]- 3021 Apr, [facility] [address] [id number] [place] [address]- 3631 Apr, [facility] [place] [facility] [address] [id number] [place] [address]- 3700 Apr, [facility] [address] [id number] [place] 4033 Apr, [facility] [place] [facility] [address] [id number] [place] [address]- 8080 Apr, [facility] [address] [id number] [place] [address]- 0046 Apr, [facility] [place] [facility] [address] [id number] [place] [address]- 5332 Apr, [facility] [address] [id number] [place] [address]- 6128 Apr, [facility] [place] [facility] [address] [id number] [place] [address]- 8713 Apr, [facility] [place] [facility] [address] [id number] [place] [address]- 1831 Apr, [facility] [place] [facility] [address] [id number], [place] [address]- 1946 Dec, [facility] [place] [facility] [address] [id number], [place] [address]- 9222 Dec, [facility] [place] [facility] [address] [id number], [place] [address]- 6063 Jul, [facility] [place] [facility] [address] [id number] [place] [address]- 7345 Jun, [facility] [place] [facility] [address] [id number], [place] [address]- 1859 Jun, [facility] [place] [facility] [address] [id number] [place] [address]- 0582 Oct, [facility] [place] [facility] [address], [place] [address]- [address] Jul, [facility] [address], [place] [address]- 2226 Apr, [facility] [address], [place] [address]- 0436 Apr, [facility] [address], [place] [address]- 5006 Apr, [facility] [address], [place] [address]- 3911 Mar, [facility] [address] [place] [address]- 5070 Jan, [facility] [address], [place] [address]- 5636 Jan, [facility] [address] [place] [address] 24309- 8528 Jan, [facility] [address], [place] [address]- 8034 Dec, [facility] [address], [place] [address]- 3138 Oct, [facility] [address], [place] [address]- 9650 Jan, [facility] [address] [address]- 1740 Oct, [facility] [address], [place] [address]- 9390 Apr, IMMUNIZATIONS No Known Immunizations SOCIAL HISTORY Never Assessed REASON FOR VISIT Medication Question PLAN OF CARE VITAL SIGNS MEDICATIONS Medication Instructions Dosage Frequency Start Date End Date Duration Status Promethazine HCl 12.5 MG Orally every 6 hrs 1-2 tablets 6h Dec, Active RESULTS No Results PROCEDURES No Known [...] Hospitalization History Suicidal ideation with auditory hallucinations-[facility] Hospitalization History PT was in [place] for two weeks following her stay 12/2016
[2017-12-14] MEDS ORDERED: CLOT15CR4 TP (19:48)
--- NOTE | 2017-12-14 19:48 | ED Integumentary General ---
General Chief Complaint: Skin/Wound Problems Stated Complaint: ABD PAIN Nursing Triage Note: pt brought in by ems with complaint of rash under breasts. 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 Allergies and Home Medications Allergies Coded Allergies: Penicillins (Verified Allergy, Unknown, 08/20/15) tuberculin, purified protein deriva (Verified Adverse Reaction, Mild, 08/19) Home Medications Albuterol Sulfate 8.5 Gm Hfa.aer.ad, 2 PUFF INH Q6H PRN for SHORTNESS OF BREATH, (Reported) Cetirizine HCl 10 Mg Tablet, 10 MG PO DAILY, (Reported) Clotrimazole/Betamethasone Dip 15 Gm Cream..g., 15 GM TP BID Prescribed by: VLADIMIR MARK on 12/14/171947 Dicyclomine HCl 20 Mg Tablet, 20 MG PO BID, (Reported) Levothyroxine Sodium 50 Mcg Tablet, 50 MCG PO DAILY@0630 Prescribed by: MANI THORNTON on 12/21/16 0948 Montelukast Sodium 10 Mg Tablet, 10 MG PO HS, (Reported) Nitrofurantoin Monohyd/M-Cryst 100 Mg Capsule, 1 TAB PO BID Prescribed by: MANI THORNTON on 12/21/16 0948 Ondansetron 8 Mg Tab.rapdis, 8 MG PO every 4 hours Prescribed by: NURA GOODSON on 05/14/17 1148 Propranolol HCl 60 Mg Tablet, 60 MG PO BID, (Reported) Sertraline HCl 50 Mg Tablet, 50 MG PO DAILY, (Reported) Sucralfate 1 Gm Tablet, 1 GM PO ACHS Prescribed by: MARY ALCALA on 10/22/17 1429 Patient Home Medication List Home Medication List Reviewed: Yes Constitutional: no symptoms reported Respiratory: no symptoms reported Cardiovascular: no symptoms reported Skin: see HPI Psychiatric/Neurological: Anxiety Past Pcdpnjs-Qrgtfy-Wylefa Hx Patient Social History Alcohol Use: Denies Use Recreational Drug Use: No Smoking Status: Never a Smoker Recent Foreign Travel: No Contact w/Someone Who Travel: No Recent Infectious Disease Expo: No Recent Hopitalizations: No Immunizations Up To Date Tetanus Booster (TDap): Unknown Date of Pneumonia Vaccine: Feb 01, 2012 Date of Influenza Vaccine: Feb 01, 2016 Seasonal Allergies Seasonal Allergies: No Past Medical History Surgeries: Yes (X2 C-SECT,TUBAL LIG.,APPY) Appendectomy, Section, Gallbladder, 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, Oophorectomy, 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 Respiratory: Yes Asthma, Sleep Apnea, COPD Currently Using CPAP: Yes Currently Using BIPAP: No Cardiac: Yes Hypertension, Syncope Neurological: Yes Headaches /Migraines, Seizure Disorder, Vertigo Reproductive Disorders: Yes Female Reproductive Disorders: Denies 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 History: 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, 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 Sexually Transmitted Disease: No HIV/AIDS: No Genitourinary: No UTI-Chronic Gastrointestinal: Yes (rectal pain and bleeding) Gastroesophageal Reflux, Ulcer Musculoskeletal: Yes Chronic Back Pain Endocrine: Yes Diabetes, Non-Insulin dep Tinnitis Loss of Vision: Denies Hearing Impairment: Denies Cancer: No Psychosocial: Yes (EXTENSIVE PSYCH ISSUES, MULTIPLE PSYCH ADMITS, INCLUDING [place]) Anxiety, Suicide Attempts, Depression Integumentary: No Blood Disorders: No Adverse Reaction/Blood Tranf: No Family Medical History Congenital heart disease G8 SISTER (HOLE IN HEART ) Neoplasm 19 MOTHER (STOMACH ) G8 BROTHER (STOMACH) No Pertinent Family Hx Physical Exam Vital Signs Vital Signs - First Documented 12/14/17 19:33 Pulse 85 Resp 18 B/P (MAP) 146/95 (112) Pulse Ox 94 O2 Delivery Room Air Capillary Refill : Less Than 3 Seconds General Appearance: obese, other (CONSTANT MOVEMENTS, MOANING, SNIFFING) Cardiovascular: regular rate, rhythm, no murmur Respiratory: normal breath sounds, no respiratory distress Neurologic/Psychiatric: no motor/sensory deficits, alert, other (ANXIOUS, SNIFFING, CONSTANT MOVEMENTS. ) Skin: normal color, warm/dry, other (CHAFED SKIN UNCER BOTH BREASTS--LEFT > RIGHT. NO PAPULES OR VESICLES. NO DISCRETE BORDERS OR SATELLITE LESIONS. MULTIPLE SORES/SCARS/SCABS TO FACE. ) Progress/Results/Core Measures Results/Orders Vital Signs/I&O 12/14/17 19:33 Pulse 85 Resp 18 B/P (MAP) 146/95 (112) Pulse Ox 94 O2 Delivery Room Air Blood Pressure Mean: 112 Departure Impression Primary Impression: Intertrigo Additional Impression: Chafing Disposition: 01 HOME, SELF-CARE Condition: Stable Departure-Patient Inst. Referrals: ELVIA RUIZ DO (PCP) Primary Care Physician EDUARDO GRUBER (Family) Primary Care Physician Patient Instructions: Heat Rash, Skin Rash (DC) Add. Discharge Instructions: KEEP AREA CLEAN AND DRY--WASH AREA TWICE A DAY WITH SOAP AND WATER, AND DRY COMPLETELY, THEN APPLY PRESCRIPTION CREAM TO AREA TYLENOL AND MOTRIN NEEDED FOR PAIN KEEP YOUR APPOINTMENT WITH YOUR DR NEXT WEEK SCHEDULED All discharge instructions reviewed with patient and/or family. Voiced understanding. Scripts Clotrimazole/Betamethasone Dip (Lotrisone Cream) 15 Gm Cream..g. 15 GM TP BID, #45 TUBE Prov: VLADIMIR MARK DO 12/14/17 VLADIMIR MARK DO Dec 14, 2017 19:48
--- OUTSIDE RECORDS SUMMARY | 2017-12-14 19:49 | XMS REPORT | Continuity of Care Document ---
Author Author [facility] Address Unknown Phone Unavailable Allergies Active Description [...] Drug Allergy N/A N/A 06/20/2013 Yes Penicillins [id number] Drug Allergy Unknown N/A 08/20/2015 Yes tuberculin, purified protein deriva [id number] Drug Allergy Mild N/A 2015 Yes tuberculin,purif.prot.deriv. [id number] Drug Allergy Mild N/A 08/20/2015 Medications There [...] SARABIA APRN A 784.0 HEADACHE 05/01/2008 ALLYN TILE CONDUIT LAYER, EDUARDO S 784.0 HEADACHE 05/01/2008 ALLYN TILE CONDUIT LAYER, EDUARDO S 784.0 HEADACHE 05/01/2008 ALLYN TILE CONDUIT LAYER, EDUARDO S 784.0 HEADACHE 05/01/2008 ALLYN TILE CONDUIT LAYER, EDUARDO S 784.0 HEADACHE 05/01/2008 ALLYN TILE CONDUIT LAYER, EDUARDO S 784.0 HEADACHE 06/11/2008 719.47 Pain [...] Other Specified Diseases Of Nail 06/22/2008 ALLYN TILE CONDUIT LAYER, EDUARDO S 110.1 Onychomycosis 06/22/2008 ALLYN TILE CONDUIT LAYER, EDUARDO S 703.8 Other Specified Diseases Of Nail 06/22/2008 ALLYN TILE CONDUIT LAYER, EDUARDO S 110.1 Onychomycosis 06/22/2008 ALLYN TILE CONDUIT LAYER, EDUARDO S 703.8 Other Specified Diseases Of Nail 06/22/2008 ALLYN TILE CONDUIT LAYER, EDUARDO S 110.1 Onychomycosis 06/22/2008 ALLYN TILE CONDUIT LAYER, EDUARDO S 703.8 Other Specified Diseases Of Nail 06/22/2008 NO TILE CONDUIT LAYER, BENTLEY A 110.1 Onychomycosis 06/22/2008 NO TILE CONDUIT LAYER, BENTLEY A 703.8 Other Specified Diseases Of Nail 06/22/2008 ALLYN TILE CONDUIT LAYER, EDUARDO S 110.1 Onychomycosis 06/22/2008 ALLYN TILE CONDUIT LAYER, EDUARDO S 703.8 Other Specified Diseases Of Nail 06/22/2008 ALLYN TILE CONDUIT LAYER, EDUARDO S 110.1 Onychomycosis 06/22/2008 ALLYN TILE CONDUIT LAYER, EDUARDO S 703.8 Other Specified Diseases Of Nail 06/22/2008 ALLYN TILE CONDUIT LAYER, EDUARDO S 110.1 Onychomycosis 06/22/2008 ALLYN TILE CONDUIT LAYER, EDUARDO S 703.8 Other Specified Diseases Of Nail 06/22/2008 ALLYN TILE CONDUIT LAYER, EDUARDO S 110.1 Onychomycosis 06/22/2008 ALLYN TILE CONDUIT LAYER, EDUARDO S 703.8 Other Specified Diseases Of Nail 06/22/2008 ALLYN TILE CONDUIT LAYER, EDUARDO S 110.1 Onychomycosis 06/22/2008 ALLYN TILE CONDUIT LAYER, EDUARDO S 703.8 Other Specified Diseases Of Nail 09/28/2008 110.4 Tinea Pedis 09/28/2008 703.0 Nail Ingrown 09/28/2008 110.4 Tinea Pedis 09/28/2008 703.0 Nail Ingrown 09/28/2008 CHRISS MENDEZ MD 110.4 Tinea Pedis 09/28/2008 CHRISS MENDEZ MD 703.0 Nail Ingrown 09/28/2008 RUIZ DO, ELVIA K 110.4 Tinea Pedis 09/28/2008 RUIZ DO, ELVIA K 703.0 Nail Ingrown 09/28/2008 ALLYN TILE CONDUIT LAYER, EDUARDO S 110.4 Tinea Pedis 09/28/2008 ALLYN TILE CONDUIT LAYER, EDUARDO S 703.0 Nail Ingrown 09/28/2008 ALLYN TILE CONDUIT LAYER, EDUARDO S 110.4 Tinea Pedis 09/28/2008 ALLYN TILE CONDUIT LAYER, EDUARDO S 703.0 Nail Ingrown 09/28/2008 ALLYN TILE CONDUIT LAYER, EDUARDO S 110.4 Tinea Pedis 09/28/2008 ALLYN TILE CONDUIT LAYER, EDUARDO S 703.0 Nail Ingrown 09/28/2008 NO TILE CONDUIT LAYER, BENTLEY A 110.4 Tinea Pedis 09/28/2008 ON TILE CONDUIT LAYER, BENTLEY A 703.0 Nail Ingrown 09/28/2008 ALLYN TILE CONDUIT LAYER, EDUARDO S 110.4 Tinea Pedis 09/28/2008 ALLYN TILE CONDUIT LAYER, EDUARDO S 703.0 Nail Ingrown 09/28/2008 ALLYN TILE CONDUIT LAYER, EDUARDO S 110.4 Tinea Pedis 09/28/2008 ALLYN TILE CONDUIT LAYER, EDUARDO S 703.0 Nail Ingrown 09/28/2008 ALLYN TILE CONDUIT LAYER, EDUARDO S 110.4 Tinea Pedis 09/28/2008 ALLYN TILE CONDUIT LAYER, EDUARDO S 703.0 Nail Ingrown 09/28/2008 ALLYN TILE CONDUIT LAYER, EDUARDO S 110.4 Tinea Pedis 09/28/2008 ALLYN TILE CONDUIT LAYER, EDUARDO S 703.0 Nail Ingrown 09/28/2008 ALLYN TILE CONDUIT LAYER, EDUARDO S 110.4 Tinea Pedis 09/28/2008 ALLYN TILE CONDUIT LAYER, EDUARDO S 703.0 Nail Ingrown 10/15/2008 465.9 Acute Upper Respiratory Infections Of Unspecified Site 10/15/2008 465.9 Acute Upper Respiratory Infections Of Unspecified Site 10/15/2008 CHRISS MENDEZ MD 465.9 Acute Upper Respiratory Infections Of Unspecified Site 10/15/2008 RUIZ DO, ELVIA K 465.9 Acute Upper Respiratory Infections Of Unspecified Site 10/15/2008 ALLYN TILE CONDUIT LAYER, EDUARDO S 465.9 Acute Upper Respiratory Infections Of Unspecified Site 10/15/2008 ALLYN TILE CONDUIT LAYER, EDUARDO S 465.9 Acute Upper Respiratory Infections Of Unspecified Site 10/15/2008 ALLYN TILE CONDUIT LAYER, EDUARDO S 465.9 Acute Upper Respiratory Infections Of Unspecified Site 10/15/2008 NO TILE CONDUIT LAYER, BENTLEY A 465.9 Acute Upper Respiratory Infections Of Unspecified Site 10/15/2008 ALLYN TILE CONDUIT LAYER, EDUARDO S 465.9 Acute Upper Respiratory Infections Of Unspecified Site 10/15/2008 ALLYN TILE CONDUIT LAYER, EDUARDO S 465.9 Acute Upper Respiratory Infections Of Unspecified Site 10/15/2008 ALLYN TILE CONDUIT LAYER, EDUARDO S 465.9 Acute Upper Respiratory Infections Of Unspecified Site 10/15/2008 ALLYN TILE CONDUIT LAYER, EDUARDO S 465.9 Acute Upper Respiratory Infections Of Unspecified Site 10/15/2008 ALLYN TILE CONDUIT LAYER, EDUARDO S 465.9 Acute Upper Respiratory Infections Of Unspecified Site 05/28/2009 511.0 Pleurisy, Without Mention Of Effusion Or Current Tuberculosis 05/28/2009 511.0 Pleurisy, Without Mention Of Effusion Or Current Tuberculosis 05/28/2009 CHRISS MENDEZ MD 511.0 Pleurisy, Without Mention Of Effusion Or Current Tuberculosis 05/28/2009 SARA ABRAHAM, ELVIA K 511.0 Pleurisy, Without Mention Of Effusion Or Current Tuberculosis 05/28/2009 ALLYN TILE CONDUIT LAYER, EDUARDO S 511.0 Pleurisy, Without Mention Of Effusion Or Current Tuberculosis 05/28/2009 ALLYN TILE CONDUIT LAYER, EDUARDO S 511.0 Pleurisy, Without Mention Of Effusion Or Current Tuberculosis 05/28/2009 ALLYN TILE CONDUIT LAYER, EDUARDO S 511.0 Pleurisy, Without Mention Of Effusion Or Current Tuberculosis 05/28/2009 NO TILE CONDUIT LAYER, BENTLEY A 511.0 Pleurisy, Without Mention Of Effusion Or Current Tuberculosis 05/28/2009 ALLYN TILE CONDUIT LAYER, EDUARDO S 511.0 Pleurisy, Without Mention Of Effusion Or Current Tuberculosis 05/28/2009 ALLYN TILE CONDUIT LAYER, EDUARDO S 511.0 Pleurisy, Without Mention Of Effusion Or Current Tuberculosis 05/28/2009 ALLYN TILE CONDUIT LAYER, EDUARDO S 511.0 Pleurisy, Without Mention Of Effusion Or Current Tuberculosis 05/28/2009 ALLYN TILE CONDUIT LAYER, EDUARDO S 511.0 Pleurisy, Without Mention Of Effusion Or Current Tuberculosis 05/28/2009 ALLYN TILE CONDUIT LAYER, EDUARDO S 511.0 Pleurisy, Without Mention Of Effusion Or Current Tuberculosis 07/24/2009 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 CHRISS MENDEZ MD 733.6 Tietze's Disease 07/24/2009 ELVIA RUIZ DO 733.6 Tietze's Disease 07/24/2009 ALLYN TILE CONDUIT LAYER, EDUARDO S 733.6 Tietze's Disease 07/24/2009 ALLYN TILE CONDUIT LAYER, EDUARDO S 733.6 Tietze's Disease 07/24/2009 ALLYN TILE CONDUIT LAYER, EDUARDO S 733.6 Tietze's Disease 07/24/2009 NO TILE CONDUIT LAYER, BENTLEY A 733.6 Tietze's Disease 07/24/2009 ALLYN TILE CONDUIT LAYER, EDUARDO S 733.6 Tietze's Disease 07/24/2009 ALLYN TILE CONDUIT LAYER, EDUARDO S 733.6 Tietze's Disease 07/24/2009 ALLYN TILE CONDUIT LAYER, EDUARDO S 733.6 Tietze's Disease 07/24/2009 ALLYN TILE CONDUIT LAYER, EDUARDO S 733.6 Tietze's Disease 07/24/2009 ALLYN TILE CONDUIT LAYER, EDUARDO S 733.6 Tietze's Disease 07/31/2009 053.9 Herpes Zoster , Without Mention Of Complication 07/31/2009 053.9 Herpes Zoster , Without Mention Of Complication 07/31/2009 CHRISS MENDEZ MD 053.9 Herpes Zoster, Without Mention Of Complication 07/31/2009 ELVIA RUIZ DO 053.9 Herpes Zoster, Without Mention Of Complication 07/31/2009 ALLYN TILE CONDUIT LAYER, EDUARDO S 053.9 Herpes Zoster, Without Mention Of Complication 07/31/2009 ALLYN TILE CONDUIT LAYER, EDUARDO S 053.9 Herpes Zoster, Without Mention Of Complication 07/31/2009 ALLYN TILE CONDUIT LAYER, EDUARDO S 053.9 Herpes Zoster, Without Mention Of Complication 07/31/2009 NO TILE CONDUIT LAYER, BENTLEY A 053.9 Herpes Zoster, Without Mention Of Complication 07/31/2009 ALLYN TILE CONDUIT LAYER, EDUARDO S 053.9 Herpes Zoster, Without Mention Of Complication 07/31/2009 ALLYN TILE CONDUIT LAYER, EDUARDO S 053.9 Herpes Zoster, Without Mention Of Complication 07/31/2009 ALLYN TILE CONDUIT LAYER, EDUARDO S 053.9 Herpes Zoster, Without Mention Of Complication 07/31/2009 ALLYN TILE CONDUIT LAYER, EDUARDO S 053.9 Herpes Zoster, Without Mention Of Complication 07/31/2009 ALLYN TILE CONDUIT LAYER, EDUARDO S 053.9 Herpes Zoster, Without Mention Of Complication 10/29/2009 300.00 Anxiety State , Unspecified 10/29/2009 300.00 Anxiety State , Unspecified 10/29/2009 CHRISS MENDEZ MD 300.00 Anxiety State, Unspecified 10/29/2009 ELVIA RUIZ DO 300.00 Anxiety State, Unspecified 10/29/2009 ALLYN TILE CONDUIT LAYER, EDUARDO S 300.00 Anxiety State, Unspecified 10/29/2009 ALLYN TILE CONDUIT LAYER, EDUARDO S 300.00 Anxiety State, Unspecified 10/29/2009 ALLYN TILE CONDUIT LAYER, EDUARDO S 300.00 Anxiety State, Unspecified 10/29/2009 NO TILE CONDUIT LAYER, BENTLEY A 300.00 Anxiety State, Unspecified 10/29/2009 ALLYN TILE CONDUIT LAYER, EDUARDO S 300.00 Anxiety State, Unspecified 10/29/2009 ALLYN TILE CONDUIT LAYER, EDUARDO S 300.00 Anxiety State, Unspecified 10/29/2009 ALLYN TILE CONDUIT LAYER, EDUARDO S 300.00 Anxiety State, Unspecified 10/29/2009 ALLYN TILE CONDUIT LAYER, EDUARDO S 300.00 Anxiety State, Unspecified 10/29/2009 ALLYN TILE CONDUIT LAYER, EDUARDO S 300.00 Anxiety State, Unspecified 11/13/2009 [...] Without Mention Of Status Migrainosus 11/13/2009 ALLYN TILE CONDUIT LAYER, EDUARDO S 346.00 Migraine With Aura, Without Mention Of Intractable Migraine Without Mention Of Status Migrainosus 11/13/2009 ALLYN TILE CONDUIT LAYER, EDUARDO S 346.00 Migraine With Aura, Without Mention Of Intractable Migraine Without Mention Of Status Migrainosus 11/13/2009 ALLYN TILE CONDUIT LAYER, EDUARDO S 346.00 Migraine With Aura, Without Mention Of Intractable Migraine Without Mention Of Status Migrainosus 11/13/2009 NO TILE CONDUIT LAYER, BENTLEY A 346.00 Migraine With Aura, Without Mention Of Intractable Migraine Without Mention Of Status Migrainosus 11/13/2009 ALLYN TILE CONDUIT LAYER, EDUARDO S 346.00 Migraine With Aura, Without Mention Of Intractable Migraine Without Mention Of Status Migrainosus 11/13/2009 ALLYN TILE CONDUIT LAYER, EDUARDO S 346.00 Migraine With Aura, Without Mention Of Intractable Migraine Without Mention Of Status Migrainosus 11/13/2009 ALLYN TILE CONDUIT LAYER, EDUARDO S 346.00 Migraine With Aura, Without Mention Of Intractable Migraine Without Mention Of Status Migrainosus 11/13/2009 ALLYN TILE CONDUIT LAYER, EDUARDO S 346.00 Migraine With Aura, Without Mention Of Intractable Migraine Without Mention Of Status Migrainosus 11/13/2009 ALLYN TILE CONDUIT LAYER, EDUARDO S 346.00 Migraine With Aura, Without Mention Of Intractable Migraine Without Mention Of Status Migrainosus 02/04/2010 682.7 Cellulitis And Abscess Of Foot Except Toes 02/04/2010 682.7 Cellulitis And Abscess Of Foot Except Toes 02/04/2010 CHRISS MENDEZ MD 682.7 Cellulitis And Abscess Of Foot Except Toes 02/04/2010 ELVIA RUIZ DO 682.7 Cellulitis And Abscess Of Foot Except Toes 02/04/2010 ALLYN TILE CONDUIT LAYER, EDUARDO S 682.7 Cellulitis And Abscess Of Foot Except Toes 02/04/2010 ALLYN TILE CONDUIT LAYER, EDUARDO S 682.7 Cellulitis And Abscess Of Foot Except Toes 02/04/2010 ALLYN TILE CONDUIT LAYER, EDUARDO S 682.7 Cellulitis And Abscess Of Foot Except Toes 02/04/2010 NO TILE CONDUIT LAYER, BENTLEY A 682.7 Cellulitis And Abscess Of Foot Except Toes 02/04/2010 ALLYN TILE CONDUIT LAYER, EDUARDO S 682.7 Cellulitis And Abscess Of Foot Except Toes 02/04/2010 ALLYN TILE CONDUIT LAYER, EDUARDO S 682.7 Cellulitis And Abscess Of Foot Except Toes 02/04/2010 ALLYN TILE CONDUIT LAYER, EDUARDO S 682.7 Cellulitis And Abscess Of Foot Except Toes 02/04/2010 ALLYN TILE CONDUIT LAYER, EDUARDO S 682.7 Cellulitis And Abscess Of Foot Except Toes 02/04/2010 ALLYN TILE CONDUIT LAYER, EDUARDO S 682.7 Cellulitis And Abscess Of [...] V17.49 FAM HX ASCVD (DISEASE) 12/16/2010 ALLYN TILE CONDUIT LAYERJONEDUARDO S 724.5 Back Pain, General 12/16/2010 JON GRUBER APRNNDA S V17.49 FAM HX ASCVD (DISEASE) 12/16/2010 ALLYN TILE CONDUIT LAYER, EDUARDO S 724.5 Back Pain, General 12/16/2010 ALLYN TILE CONDUIT LAYER, EDUARDO S V17.49 FAM HX ASCVD (DISEASE) 12/16/2010 ALLYN TILE CONDUIT LAYER, EDUARDO S 724.5 Back Pain, General 12/16/2010 ALLYN TILE CONDUIT LAYER, EDUARDO S V17.49 FAM HX ASCVD (DISEASE) 12/16/2010 NO TILE CONDUIT LAYER, BENTLEY A 724.5 Back Pain, General 12/16/2010 NO TILE CONDUIT LAYER, BENTLEY A V17.49 FAM HX ASCVD (DISEASE) 12/16/2010 ALLYN TILE CONDUIT LAYER, EDUARDO S 724.5 Back Pain, General 12/16/2010 ALLYN TILE CONDUIT LAYER, EDUARDO S V17.49 FAM HX ASCVD (DISEASE) 12/16/2010 ALLYN TILE CONDUIT LAYER, EDUARDO S 724.5 Back Pain, General 12/16/2010 ALLYN TILE CONDUIT LAYER, EDUARDO S V17.49 FAM HX ASCVD (DISEASE) 12/16/2010 ALLYN TILE CONDUIT LAYER, EDUARDO S 724.5 Back Pain, General 12/16/2010 ALLYN TILE CONDUIT LAYER, EDUARDO S V17.49 FAM HX ASCVD (DISEASE) 12/16/2010 ALLYN TILE CONDUIT LAYER, EDUARDO S 724.5 Back Pain, General 12/16/2010 ALLYN TILE CONDUIT LAYER, EDUARDO S V17.49 FAM HX ASCVD (DISEASE) 12/16/2010 ALLYN TILE CONDUIT LAYER, EDUARDO S 724.5 Back Pain, General 12/16/2010 ALLYN TILE CONDUIT LAYER, EDUARDO S V17.49 FAM HX ASCVD (DISEASE) 01/13/2011 381.81 DYSFUNCTION OF EUSTACHIAN TUBE 01/13/2011 381.81 DYSFUNCTION OF EUSTACHIAN TUBE 01/13/2011 CHRISS MENDEZ MD 381.81 DYSFUNCTION OF EUSTACHIAN TUBE 01/13/2011 ELVIA RUIZ DO 381.81 DYSFUNCTION OF EUSTACHIAN TUBE 01/13/2011 ALLYN TILE CONDUIT LAYER, EDUARDO S 381.81 DYSFUNCTION OF EUSTACHIAN TUBE 01/13/2011 ALLYN TILE CONDUIT LAYER EDUARDO S 381.81 DYSFUNCTION OF EUSTACHIAN TUBE 01/13/2011 ALLYN TILE CONDUIT LAYER, EDUARDO S 381.81 DYSFUNCTION OF EUSTACHIAN TUBE 01/13/2011 BENTLEY SARABIA APRN A 381.81 DYSFUNCTION OF EUSTACHIAN TUBE 01/13/2011 ALLYN TILE CONDUIT LAYER, EDUARDO S 381.81 DYSFUNCTION OF EUSTACHIAN TUBE 01/13/2011 ALLYN TILE CONDUIT LAYER, EDUARDO S 381.81 DYSFUNCTION OF EUSTACHIAN TUBE 01/13/2011 ALLYN TILE CONDUIT LAYER, EDUARDO S 381.81 DYSFUNCTION OF EUSTACHIAN TUBE 01/13/2011 ALLYN TILE CONDUIT LAYER, EDUARDO S 381.81 DYSFUNCTION OF EUSTACHIAN TUBE 01/13/2011 ALLYN TILE CONDUIT LAYER, EDUARDO S 381.81 DYSFUNCTION OF EUSTACHIAN TUBE [...] (3 YRS AND ABOVE, IM) 02/18/2011 ALLYN TILE CONDUIT LAYER, EDUARDO S V04.81 FLU DX (3 YRS AND ABOVE, IM) 02/25/2011 702.8 OTHER SPECIFIED DERMATOSES 02/25/2011 702.8 OTHER SPECIFIED DERMATOSES 02/25/2011 CHRISS MENDEZ MD 702.8 OTHER SPECIFIED DERMATOSES 02/25/2011 ELVIA RUIZ DO K 702.8 OTHER SPECIFIED DERMATOSES 02/25/2011 ALLYN TILE CONDUIT LAYER, EDUARDO S 702.8 OTHER SPECIFIED DERMATOSES 02/25/2011 ALLYN TILE CONDUIT LAYER, EDUARDO S 702.8 OTHER SPECIFIED DERMATOSES 02/25/2011 ALLYN TILE CONDUIT LAYER, EDUARDO S 702.8 OTHER SPECIFIED DERMATOSES 02/25/2011 NO PRATT, BENTLEY A 702.8 OTHER SPECIFIED DERMATOSES 02/25/2011 ALLYN TILE CONDUIT LAYER, EDUARDO S 702.8 OTHER SPECIFIED DERMATOSES 02/25/2011 ALLYN TILE CONDUIT LAYER, EDUARDO S 702.8 OTHER SPECIFIED DERMATOSES 02/25/2011 ALLYN TILE CONDUIT LAYER, EDUARDO S 702.8 OTHER SPECIFIED DERMATOSES 02/25/2011 ALLYN TILE CONDUIT LAYER, EDUARDO S 702.8 OTHER SPECIFIED DERMATOSES 02/25/2011 ALLYN TILE CONDUIT LAYER, EDUARDO S 702.8 OTHER SPECIFIED DERMATOSES 03/03/2011 401.1 HYPERTENSION, BENIGN ESSENTIAL 03/03/2011 401.1 HYPERTENSION, BENIGN ESSENTIAL 03/03/2011 CHRISS MENDEZ MD 401.1 HYPERTENSION, BENIGN ESSENTIAL 03/03/2011 ELVIA RUIZ DO K 401.1 HYPERTENSION, BENIGN ESSENTIAL 03/03/2011 ALLYN TILE CONDUIT LAYER, EDUARDO S 401.1 HYPERTENSION, BENIGN ESSENTIAL 03/03/2011 ALLYN TILE CONDUIT LAYER, EDUARDO S 401.1 HYPERTENSION, BENIGN ESSENTIAL 03/03/2011 ALLYN TILE CONDUIT LAYER, EDUARDO S 401.1 HYPERTENSION, BENIGN ESSENTIAL 03/03/2011 NOQuique PRATT BENTLEY A 401.1 HYPERTENSION, BENIGN ESSENTIAL 03/03/2011 ALLYN TILE CONDUIT LAYER, EDUARDO S 401.1 HYPERTENSION, BENIGN ESSENTIAL 03/03/2011 ALLYN TILE CONDUIT LAYER, EDUARDO S 401.1 HYPERTENSION, BENIGN ESSENTIAL 03/03/2011 ALLYN TILE CONDUIT LAYER, EDUARDO S 401.1 HYPERTENSION, BENIGN ESSENTIAL 03/03/2011 ALLYN TILE CONDUIT LAYER, EDUARDO S 401.1 HYPERTENSION, BENIGN ESSENTIAL 03/03/2011 ALLYN TILE CONDUIT LAYER, EDUARDO S 401.1 HYPERTENSION, BENIGN ESSENTIAL 04/07/2011 [...] V03.82 Need For Vaccination Pneumococcal 04/07/2011 ALLYN TILE CONDUIT LAYER, EDUARDO S 465.9 UPPER RESPIRATORY INFECTION 04/07/2011 ALLYN TILE CONDUIT LAYER, EDUARDO S V03.82 Need For Vaccination Pneumococcal 04/07/2011 ALLYN TILE CONDUIT LAYER, EDUARDO S 465.9 UPPER RESPIRATORY INFECTION 04/07/2011 ALLYN AMAYAN, EDUARDO S V03.82 Need For Vaccination Pneumococcal 04/07/2011 ALLYN TILE CONDUIT LAYER, EDUARDO S 465.9 UPPER RESPIRATORY INFECTION 04/07/2011 ALLYN TILE CONDUIT LAYER, EDUARDO S V03.82 NEED FOR VACCINATION PNEUMOCOCCAL 04/07/2011 NO TILE CONDUIT LAYER, BENTLEY A 465.9 UPPER RESPIRATORY INFECTION 04/07/2011 NO TILE CONDUIT LAYER, BENTLEY A V03.82 NEED FOR VACCINATION PNEUMOCOCCAL 04/07/2011 ALLYN TILE CONDUIT LAYER, EDUARDO S 465.9 UPPER RESPIRATORY INFECTION 04/07/2011 ALLYN TILE CONDUIT LAYER, EDUARDO S V03.82 NEED FOR VACCINATION PNEUMOCOCCAL 04/07/2011 ALLYN TILE CONDUIT LAYER, EDUARDO S 465.9 UPPER RESPIRATORY INFECTION 04/07/2011 ALLYN TILE CONDUIT LAYER, EDUARDO S V03.82 NEED FOR VACCINATION PNEUMOCOCCAL 04/07/2011 ALLYN TILE CONDUIT LAYER, EDUARDO S 465.9 UPPER RESPIRATORY INFECTION 04/07/2011 ALLYN TILE CONDUIT LAYER, EDUARDO S V03.82 NEED FOR VACCINATION PNEUMOCOCCAL 04/07/2011 ALLYN TILE CONDUIT LAYER, EDUARDO S 465.9 UPPER RESPIRATORY INFECTION 04/07/2011 [...] OTHER SPECIFIED DISORDERS OF SKIN 07/06/2011 NO TILE CONDUIT LAYER, BENTLEY A 386.11 BENIGN PAROXYSMAL POSITIONAL VERTIGO 07/06/2011 NO TILE CONDUIT LAYER, BENTLEY A 709.8 OTHER SPECIFIED DISORDERS OF SKIN 07/06/2011 ALLYN PRATT, EDUARDO S 386.11 BENIGN PAROXYSMAL POSITIONAL VERTIGO 07/06/2011 ALLYN PRATT EDUARDO S 709.8 OTHER SPECIFIED DISORDERS OF SKIN 07/06/2011 ALLYN PRATT, EDUARDO S 386.11 BENIGN PAROXYSMAL POSITIONAL VERTIGO 07/06/2011 ALLYN PRATT EDUARDO S 709.8 OTHER SPECIFIED DISORDERS OF SKIN 07/06/2011 ALLYN PRATT EDUARDO S 386.11 BENIGN PAROXYSMAL POSITIONAL VERTIGO 07/06/2011 ALLYN TILE CONDUIT LAYER, EDUARDO S 709.8 OTHER SPECIFIED DISORDERS OF SKIN 07/06/2011 ALLYN TILE CONDUIT LAYER, EDUARDO S 386.11 BENIGN PAROXYSMAL POSITIONAL VERTIGO 07/06/2011 ALLYN TILE CONDUIT LAYER, EDUARDO S 709.8 OTHER SPECIFIED DISORDERS OF SKIN 07/06/2011 ALLYN TILE CONDUIT LAYER, EDUARDO S 386.11 BENIGN PAROXYSMAL POSITIONAL VERTIGO 07/06/2011 ALLYN TILE CONDUIT LAYER, EDUARDO S 709.8 OTHER SPECIFIED DISORDERS OF [...] ELVIA RUIZ DO 786.2 COUGH 06/27/2012 ALLYN TILE CONDUIT LAYER, EDUARDO S 786.2 COUGH 06/27/2012 ALLYN TILE CONDUIT LAYER, EDUARDO S 786.2 COUGH 06/27/2012 ALLYN TILE CONDUIT LAYER, EDUARDO S 786.2 COUGH 06/27/2012 NO AMAYAN BENTLEY A 786.2 COUGH 06/27/2012 ALLYN TILE CONDUIT LAYER, EDUARDO S 786.2 COUGH 06/27/2012 ALLYN TILE CONDUIT LAYER, EDUARDO S 786.2 COUGH 06/27/2012 ALLYN TILE CONDUIT LAYER, EDUARDO S 786.2 COUGH 06/27/2012 ALLYN TILE CONDUIT LAYER, EDUARDO S 786.2 COUGH 06/27/2012 ALLYN TILE CONDUIT LAYER, EDUARDO S 786.2 COUGH 11/30/2012 SHAQ SILVA, RENETTA Ot 564.00 UNSPEC CONSTIPATION 11/30/2012 SHAQ SILVA, RENETTA Ot 599.0 URIN TRACT INFECTION NOS 11/30/2012 SHAQ SILVA, RENETTA Ot 787.01 NAUSEA WITH VOMITING 11/30/2012 RENETTA NEW MD Ot 789.01 ABDOMINAL PAIN, RIGHT UPPER QUADRANT 05/01/2013 ALLYN TILE CONDUIT LAYER, EDUARDO S 053.9 HERPES ZOSTER (SHINGLES) 05/01/2013 ALLYN TILE CONDUIT LAYER, EDUARDO S 684 IMPETIGO 05/01/2013 ALLYN TILE CONDUIT LAYER, EDUARDO S 053.9 HERPES ZOSTER (SHINGLES) 05/01/2013 ALLYN TILE CONDUIT LAYER, EDUARDO S 684 IMPETIGO 05/01/2013 ALLYN TILE CONDUIT LAYER, EDUARDO S 053.9 HERPES ZOSTER (SHINGLES) 05/01/2013 ALLYN TILE CONDUIT LAYER, EDUARDO S 684 IMPETIGO 05/01/2013 NO TILE CONDUIT LAYER, BENTLEY A 053.9 HERPES ZOSTER (SHINGLES) 05/01/2013 NO TILE CONDUIT LAYER, BENTLEY A 684 IMPETIGO 05/01/2013 ALLYN TILE CONDUIT LAYER, EDUARDO S 053.9 HERPES ZOSTER (SHINGLES) 05/01/2013 ALLYN TILE CONDUIT LAYER, EUDARDO S 684 IMPETIGO 05/01/2013 ALLYN TILE CONDUIT LAYER, EDUARDO S 053.9 HERPES ZOSTER (SHINGLES) 05/01/2013 ALLYN TILE CONDUIT LAYER, EDUARDO S 684 IMPETIGO 05/01/2013 ALLYN TILE CONDUIT LAYER, EDUARDO S 053.9 HERPES ZOSTER (SHINGLES) 05/01/2013 ALLYN TILE CONDUIT LAYER, EDUARDO S 684 IMPETIGO 05/01/2013 ALLYN TILE CONDUIT LAYER, EDUARDO S 053.9 HERPES ZOSTER (SHINGLES) 05/01/2013 ALLYN TILE CONDUIT LAYER, EDUARDO S 684 IMPETIGO 05/01/2013 ALLYN TILE CONDUIT LAYER, EDUARDO S 053.9 HERPES ZOSTER (SHINGLES) 05/01/2013 ALLYN TILE CONDUIT LAYER, EDUARDO S 684 IMPETIGO 06/20/2013 ALLYN TILE CONDUIT LAYER, EDUARDO S 599.0 URINARY TRACT INFECTION 06/20/2013 ALLYN PRATT EDUARDO S 599.0 URINARY TRACT INFECTION 06/20/2013 BENTLEY SARABIA APRN A 599.0 URINARY TRACT INFECTION 06/20/2013 ALLYN TILE CONDUIT LAYER, EDUARDO S 599.0 URINARY TRACT INFECTION 06/20/2013 ALLYN TILE CONDUIT LAYER, EDUARDO S 599.0 URINARY TRACT INFECTION 06/20/2013 JON GRUBER APRNNDA S 599.0 URINARY TRACT INFECTION 06/20/2013 ALLYN TILE CONDUIT LAYER, EDUARDO S 599.0 URINARY TRACT INFECTION 06/20/2013 [...] CAUSED BY OTHER OBJ 10/24/2013 BISI BUCK TILE CONDUIT LAYER Ot 682.2 CELLULITIS OF TRUNK 10/26/2013 JON [...] SIGNS AND SYMPTOMS IN BREAST 11/14/2013 NO TILE CONDUIT LAYER BENTLEY A 625.0 DYSPAREUNIA 11/14/2013 NO AMAYAN BENTLEY A 719.43 PAIN- WRIST 11/14/2013 NO AMAYANCARMENBENTLEY A V16.3 FAM HX CANCER, BREAST 11/14/2013 NO AMAYANCARMENBENTLEY A V72.31 PROGRAMMING COORDINATOR EXAM, ROUTINE 11/14/2013 NO TILE CONDUIT LAYER BENTLEY A V76.10 BREAST CANCER SCREENING 11/14/2013 NO AMAYAN BENTLEY A V76.51 COLON CANCER SCREENING 11/14/2013 ALLYN TILE CONDUIT LAYER, EDUARDO S 611.6 GALACTORRHEA NOT ASSOCIATED WITH CHILDBIRTH 11/14/2013 ALLYN TILE CONDUIT LAYER, EDUARDO S 611.79 OTHER SIGNS AND SYMPTOMS IN BREAST 11/14/2013 ALLYN TILE CONDUIT LAYER, EDUARDO S 625.0 DYSPAREUNIA 11/14/2013 ALLYNMELLO AMAYAN, EDUARDO S 719.43 PAIN- WRIST 11/14/2013 ALLYN TILE CONDUIT LAYER, EDUARDO S V16.3 FAM HX CANCER, BREAST 11/14/2013 ALLYN TILE CONDUIT LAYER, EDUARDO S V72.31 PROGRAMMING COORDINATOR EXAM, ROUTINE 11/14/2013 ALLYN TILE CONDUIT LAYER, EDUARDO S V76.10 BREAST CANCER SCREENING 11/14/2013 ALLYN TILE CONDUIT LAYER, EDUARDO S V76.51 COLON CANCER SCREENING 11/14/2013 ALLYN TILE CONDUIT LAYER, EDUARDO S 611.6 GALACTORRHEA NOT ASSOCIATED WITH CHILDBIRTH 11/14/2013 ALLYN TILE CONDUIT LAYER, EDUARDO S 611.79 OTHER SIGNS AND SYMPTOMS IN BREAST 11/14/2013 ALLYN TILE CONDUIT LAYER, EDUARDO S 625.0 DYSPAREUNIA 11/14/2013 ALLYN TILE CONDUIT LAYER, EDUARDO S 719.43 PAIN- WRIST 11/14/2013 ALLYN TILE CONDUIT LAYER, EDUARDO S V16.3 FAM HX CANCER, BREAST 11/14/2013 ALLYN TILE CONDUIT LAYER, EDUARDO S V72.31 PROGRAMMING COORDINATOR EXAM, ROUTINE 11/14/2013 ALLYN TILE CONDUIT LAYER, EDUARDO S V76.10 BREAST CANCER SCREENING 11/14/2013 ALLYN TILE CONDUIT LAYER, EDUARDO S V76.51 COLON CANCER SCREENING 11/14/2013 ALLYN TILE CONDUIT LAYER, EDUARDO S 611.6 GALACTORRHEA NOT ASSOCIATED WITH CHILDBIRTH 11/14/2013 ALLYN TILE CONDUIT LAYER, EDUARDO S 611.79 OTHER SIGNS AND SYMPTOMS IN BREAST 11/14/2013 ALLYN TILE CONDUIT LAYER, EDUARDO S 625.0 DYSPAREUNIA 11/14/2013 ALLYN TILE CONDUIT LAYER, EDUARDO S 719.43 PAIN- WRIST 11/14/2013 ALLYN TILE CONDUIT LAYER, EDUARDO S V16.3 FAM HX CANCER, BREAST 11/14/2013 ALLYN TILE CONDUIT LAYER, EDUARDO S V72.31 PROGRAMMING COORDINATOR EXAM, ROUTINE 11/14/2013 ALLYN TILE CONDUIT LAYER, EDUARDO S V76.10 BREAST CANCER SCREENING 11/14/2013 ALLYN TILE CONDUIT LAYER, EDUARDO S V76.51 COLON CANCER SCREENING 11/14/2013 ALLYN TILE CONDUIT LAYER, EDUARDO S 611.6 GALACTORRHEA NOT ASSOCIATED WITH CHILDBIRTH 11/14/2013 ALLYN TILE CONDUIT LAYER, EDUARDO S 611.79 OTHER SIGNS AND SYMPTOMS IN BREAST 11/14/2013 ALLYN TILE CONDUIT LAYER, EDUARDO S 625.0 DYSPAREUNIA 11/14/2013 ALLYN TILE CONDUIT LAYER, EDUARDO S 719.43 PAIN- WRIST 11/14/2013 ALLYN TILE CONDUIT LAYER, EDUARDO S V16.3 FAM HX CANCER, BREAST 11/14/2013 ALLYN TILE CONDUIT LAYER, EDUARDO S V72.31 PROGRAMMING COORDINATOR EXAM, ROUTINE 11/14/2013 ALLYN TILE CONDUIT LAYER, EDUARDO S V76.10 BREAST CANCER SCREENING 11/14/2013 ALLYN TILE CONDUIT LAYER, EDUARDO S V76.51 COLON CANCER SCREENING 11/14/2013 ALLYN TILE CONDUIT LAYER, EDUARDO S 611.6 GALACTORRHEA NOT ASSOCIATED WITH CHILDBIRTH 11/14/2013 ALLYN TILE CONDUIT LAYER, EDUARDO S 611.79 OTHER SIGNS AND SYMPTOMS IN BREAST 11/14/2013 ALLYN TILE CONDUIT LAYER, EDUARDO S 625.0 DYSPAREUNIA 11/14/2013 ALLYN TILE CONDUIT LAYER, EDUARDO S 719.43 PAIN- WRIST 11/14/2013 ALLYN TILE CONDUIT LAYER, EDUARDO S V16.3 FAM HX CANCER, BREAST 11/14/2013 ALLYN TILE CONDUIT LAYER, EDUARDO S V72.31 PROGRAMMING COORDINATOR EXAM, ROUTINE 11/14/2013 ALLYN TILE CONDUIT LAYER, EDUARDO S V76.10 BREAST CANCER SCREENING 11/14/2013 ALLYN TILE CONDUIT LAYER, EDUARDO S V76.51 COLON CANCER SCREENING 02/05/2014 ALLYN TILE CONDUIT LAYER, EDUARDO S 477.0 ALLERGIC RHINITIS DUE TO POLLEN 02/05/2014 ALLYN TILE CONDUIT LAYER, EDUARDO S 789.00 ABDOMINAL PAIN UNSPECIFIED SITE 02/05/2014 ALLYN TILE CONDUIT LAYER, EDUARDO S 477.0 ALLERGIC RHINITIS DUE TO POLLEN 02/05/2014 ALLYN TILE CONDUIT LAYER, EDUARDO S 789.00 ABDOMINAL PAIN UNSPECIFIED SITE 02/05/2014 ALLYN TILE CONDUIT LAYER, EDUARDO S 477.0 ALLERGIC RHINITIS DUE TO POLLEN 02/05/2014 ALLYN TILE CONDUIT LAYER, EDUARDO S 789.00 ABDOMINAL PAIN UNSPECIFIED SITE 02/05/2014 ALLYN TILE CONDUIT LAYER, EDUARDO S 477.0 ALLERGIC RHINITIS DUE TO POLLEN 02/05/2014 ALLYN TILE CONDUIT LAYER, EDUARDO S 789.00 ABDOMINAL PAIN UNSPECIFIED SITE 03/03/2014 BISI BUCK TILE CONDUIT LAYER Ot 599.0 URIN TRACT INFECTION NOS 03/03/2014 BISI BUCK TILE CONDUIT LAYER Ot 789.03 ABDOMINAL PAIN, RIGHT LOWER QUADRANT 03/21/2014 BISI BUCK TILE CONDUIT LAYER Ot 599.0 URIN TRACT INFECTION NOS 03/21/2014 BISI BUCK TILE CONDUIT LAYER Ot 789.03 ABDOMINAL PAIN, RIGHT LOWER QUADRANT 03/21/2014 NO BENTLEY A TILE CONDUIT LAYER Ot 611.6 03/21/2014 NO, BENTLEY A TILE CONDUIT LAYER Ot 611.79 03/21/2014 NO, BENTLEY A TILE CONDUIT LAYER Ot 625.0 03/21/2014 NO, BENTLEY A TILE CONDUIT LAYER Ot V16.3 03/21/2014 NO, BENTLEY A TILE CONDUIT LAYER Ot V72.31 03/21/2014 NO, BENTLEY A TILE CONDUIT LAYER Ot V76.11 03/21/2014 NO, BENTLEY A TILE CONDUIT LAYER Ot V76.51 04/10/2014 ALLYN TILE CONDUIT LAYER, EDUARDO S 112.3 CANDIDIASIS OF SKIN AND NAILS 04/10/2014 ALLYN TILE CONDUIT LAYER, EDUARDO S V04.81 FLU SHOT 04/10/2014 ALLYN TILE CONDUIT LAYER, EDUARDO S 112.3 CANDIDIASIS OF SKIN AND NAILS 04/10/2014 ALLYN TILE CONDUIT LAYER, EDUARDO S V04.81 FLU SHOT 04/10/2014 ALLYN TILE CONDUIT LAYER, EDUARDO S 112.3 CANDIDIASIS OF SKIN AND NAILS 04/10/2014 ALLYN TILE CONDUIT LAYER, EDUARDO S V04.81 FLU SHOT 07/23/2014 ALLYN TILE CONDUIT LAYER, EDUARDO S 388.70 OTALGIA 07/23/2014 ALLYN TILE CONDUIT LAYER, EDUARDO S 465.9 UPPER RESPIRATORY INFECTION 07/23/2014 ALLYN TILE CONDUIT LAYER, EDUARDO S 780.4 DIZZINESS AND VERTIGO 07/23/2014 ALLYN TILE CONDUIT LAYER, EDUARDO S 786.2 COUGH 07/23/2014 ALLYN TILE CONDUIT LAYER, EDUARDO S 388.70 OTALGIA 07/23/2014 ALLYN TILE CONDUIT LAYER, EDUARDO S 465.9 UPPER RESPIRATORY INFECTION 07/23/2014 ALLYN TILE CONDUIT LAYER, EDUARDO S 780.4 DIZZINESS AND VERTIGO 07/23/2014 ALLYN TILE CONDUIT LAYER, EDUARDO S 786.2 COUGH 08/27/2014 ALLYN TILE CONDUIT LAYER, EDUARDO S 493.90 ASTHMA UNSPECIFIED 08/27/2014 ALLYN TILE CONDUIT LAYER, EDUARDO S 599.0 URINARY TRACT INFECTION 08/27/2014 ALLYN TILE CONDUIT LAYER, EDUARDO S 788.1 DYSURIA 10/10/2014 NO, BENTLEY A TILE CONDUIT LAYER Ot 611.6 10/10/2014 NO, BENTLEY A TILE CONDUIT LAYER Ot 611.79 10/10/2014 NO, BENTLEY A TILE CONDUIT LAYER Ot 625.0 10/10/2014 NO, BENTLEY A TILE CONDUIT LAYER Ot V16.3 10/10/2014 NO, BENTLEY A TILE CONDUIT LAYER Ot V72.31 10/10/2014 NO, BENTLEY A TILE CONDUIT LAYER Ot V76.11 10/10/2014 NO, BENTLEY A TILE CONDUIT LAYER Ot V76.51 10/10/2014 VLADIMIR MARK DO Ot 133.0 SCABIES 10/10/2014 DEEDEE ABRAHAM VLADIMIR Ronnie Ot 782.1 NONSPECIF SKIN ERUPT NEC 10/24/2014 HAMZAH SILVA, NURA Trujillo Ot 133.0 SCABIES 11/26/2014 ELIGIO JUAREZ DO Ot 133.0 SCABIES 11/26/2014 ELIGIO JUAREZ DO Ot 782.1 NONSPECIF SKIN ERUPT NEC 02/11/2015 BISI BUCK TILE CONDUIT LAYER Ot T18.128A FOOD IN ESOPHAGUS CAUSING OTHER INJURY, 02/11/2015 BISI BUCK TILE CONDUIT LAYER Ot X58.XXXA EXPOSURE TO OTHER SPECIFIED FACTORS, INI 02/11/2015 BISI BUCK TILE CONDUIT LAYER Ot Y99.8 OTHER EXTERNAL CAUSE STATUS 08/21/2015 [...] EFFECT OF GLUCOCORT/SYNTH ANALOG 01/06/2016 BENTLEY SARABIA TILE CONDUIT LAYER Ot 611.6 GALACTORRHEA-NONOBSTET 01/06/2016 BENTLEY SARABIA APRN Ot 611.79 SYMPTOMS IN BREAST NEC 01/06/2016 BENTLEY SARABIA TILE CONDUIT LAYER Ot 625.0 DYSPAREUNIA 01/06/2016 BENTLEY SARABIA APRN Ot V16.3 FAMILY HX-BREAST MALIG 01/06/2016 BENTLEY SARABIA APRN Ot V72.31 ROUTINE GYNECOLOGICAL EXAMINATION 01/06/2016 BENTLEY SARABIA TILE CONDUIT LAYER Ot V76.11 SCRN MAMMO-HIGH RISK PT, MALIGNANT NEOPL 01/06/2016 BENTLEY SARABIA TILE CONDUIT LAYER Ot V76.51 SCREEN MAL NEOP-COLON 01/07/2016 ELVIA [...] 06/19/2016 BISI BUCK APRN Ot Z79.899 OTHER HEAD OF SALES PROMOTION (CURRENT) DRUG THERAPY 06/19/2016 BISI BUCK APRN [...] ANXIETY DISORDER, UNSPECIFIED 06/22/2016 BUCK, PETER J TILE CONDUIT LAYER Ot I10 ESSENTIAL (PRIMARY) HYPERTENSION 06/22/2016 BISI BUCK TILE CONDUIT LAYER Ot J44.9 CHRONIC OBSTRUCTIVE PULMONARY DISEASE, U 06/22/2016 BISI BUCK TILE CONDUIT LAYER Ot N39.0 URINARY TRACT INFECTION, SITE NOT SPECIF 06/22/2016 BISI BUCK APRN Ot R10.31 RIGHT LOWER QUADRANT PAIN 06/22/2016 BISI BUCK TILE CONDUIT LAYER Ot Z79.899 OTHER HEAD OF SALES PROMOTION (CURRENT) DRUG THERAPY 06/22/2016 BISI BUCK TILE CONDUIT LAYER Ot Z90.49 ACQUIRED ABSENCE OF OTHER SPECIFIED PART 06/22/2016 BISI BUCK TILE CONDUIT LAYER Ot Z90.710 ACQUIRED ABSENCE OF BOTH CERVIX AND UTER 06/22/2016 BISI BUCK TILE CONDUIT LAYER Ot Z90.89 ACQUIRED ABSENCE OF OTHER ORGANS 06/22/2016 BISI BUCK TILE CONDUIT LAYER Ot E11.9 TYPE 2 DIABETES MELLITUS WITHOUT COMPLIC 06/22/2016 BSII BUCK TILE CONDUIT LAYER Ot F41.9 ANXIETY DISORDER, UNSPECIFIED 06/22/2016 BISI BUCK TILE CONDUIT LAYER Ot I10 ESSENTIAL (PRIMARY) HYPERTENSION 06/22/2016 BISI BUCK APRN Ot J44.9 CHRONIC OBSTRUCTIVE PULMONARY DISEASE, U 06/22/2016 BISI BUCK APRN Ot N39.0 URINARY TRACT INFECTION, SITE NOT SPECIF 06/22/2016 BISI BUCK APRN Ot R10.31 RIGHT LOWER QUADRANT PAIN 06/22/2016 BISI BUCK APRN Ot Z79.899 OTHER FPC (CURRENT) DRUG THERAPY 06/22/2016 BISI BUCK TILE CONDUIT LAYER Ot Z90.49 ACQUIRED ABSENCE OF OTHER SPECIFIED PART 06/22/2016 BISI BUCK TILE CONDUIT LAYER Ot Z90.710 ACQUIRED ABSENCE OF BOTH CERVIX AND UTER 06/22/2016 BISI BUCK TILE CONDUIT LAYER Ot Z90.89 ACQUIRED ABSENCE OF OTHER ORGANS 07/13/2016 RICK SILVA, ARUN Rand Ot K62.5 HEMORRHAGE OF ANUS AND RECTUM 07/14/2016 RICK SILVA, ARUN Rand Ot K62.5 HEMORRHAGE OF ANUS AND RECTUM 07/14/2016 RICK SILVA, ARUN Rand Ot K62.89 OTHER SPECIFIED DISEASES OF ANUS AND REC 07/14/2016 RICK SILVA, ARUN Rand Ot Z01.818 ENCOUNTER FOR OTHER PREPROCEDURAL EXAMIN 07/14/2016 ARUN CABRERA MD Ot K62.5 HEMORRHAGE OF ANUS AND RECTUM 07/24/2016 ARUN CABRERA MD, Ot K62.5 HEMORRHAGE OF ANUS AND RECTUM 07/24/2016 ARUN CABERRA MD, Ot K62.89 OTHER SPECIFIED DISEASES OF ANUS AND REC 07/24/2016 ARUN CABRERA MD Ot Z01.818 ENCOUNTER FOR OTHER PREPROCEDURAL EXAMIN 07/24/2016 ARUN CABRERA MD, Ot K62.5 HEMORRHAGE OF ANUS AND RECTUM 07/24/2016 ARUN CABRERA MD, Ot K62.89 OTHER SPECIFIED DISEASES OF ANUS AND REC 07/24/2016 ARUN CABRERA MD, Ot Z01.818 ENCOUNTER FOR OTHER PREPROCEDURAL EXAMIN 07/27/2016 ARUN CABRERA MD Ot K57.90 DVRTCLOS OF INTEST, PART UNSP, W/O PERF 07/27/2016 ARUN CABRERA MD, Ot K64.8 OTHER HEMORRHOIDS 12/21/2016 BRIONNA HARLEY MD Ot E03.9 HYPOTHYROIDISM, UNSPECIFIED 12/21/2016 BRIONNA HARLEY MD Ot E11.9 TYPE 2 DIABETES MELLITUS WITHOUT COMPLIC 12/21/2016 BRIONNA HARLEY MD Ot I10 ESSENTIAL (PRIMARY) HYPERTENSION 12/21/2016 BRIONNA HARLEY MD, Ot J44.9 CHRONIC OBSTRUCTIVE PULMONARY DISEASE, U 12/21/2016 BRIONNA HARLEY MD Ot N39.0 URINARY TRACT INFECTION, SITE NOT SPECIF 12/21/2016 BRIONNA HARLEY MD, Ot R44.0 AUDITORY HALLUCINATIONS 12/21/2016 BRIONNA HARLEY MD, Ot R45.851 SUICIDAL IDEATIONS 12/21/2016 BRIONNA HARLEY MD, Ot Z79.899 OTHER HEAD OF SALES PROMOTION (CURRENT) DRUG THERAPY 05/14/2017 NURA GOODSON MD, Ot E11.9 TYPE 2 DIABETES MELLITUS WITHOUT COMPLIC 05/14/2017 NURA GOODSON MD, Ot F32.9 MAJOR DEPRESSIVE DISORDER, SINGLE EPISOD 05/14/2017 NURA GOODSON MD, Ot F41.9 ANXIETY DISORDER, UNSPECIFIED 05/14/2017 NURA GOODSON MD, Ot G40.909 EPILEPSY, UNSP, NOT INTRACTABLE, WITHOUT 05/14/2017 NURA GOODSON MD Ot G43.909 MIGRAINE, UNSP, NOT INTRACTABLE, WITHOUT 05/14/2017 NURA GOODSON MD Ot G47.30 SLEEP APNEA, UNSPECIFIED 05/14/2017 NURA GOODSON MD Ot J11.1 FLU DUE TO UNIDENTIFIED INFLUENZA VIRUS 05/14/2017 NURA GOODSON MD Ot J44.9 CHRONIC OBSTRUCTIVE PULMONARY DISEASE, U 05/14/2017 NURA GOODSON MD Ot R05 COUGH 05/14/2017 NURA GOODSON MD Ot Z87.19 PERSONAL HISTORY OF OTHER DISEASES OF TH 05/14/2017 NURA GOODSON MD Ot Z87.59 PERSONAL HISTORY OF COMP OF PREG, CHLDBR 05/14/2017 NURA GOODSON MD Ot Z90.49 ACQUIRED ABSENCE OF OTHER SPECIFIED PART 05/14/2017 NURA GOODSON MD Ot Z90.710 ACQUIRED ABSENCE OF BOTH CERVIX AND UTER 05/14/2017 NURA GOODSON MD Ot Z91.5 PERSONAL HISTORY OF SELF-HARM 05/14/2017 NURA GOODSON MD Ot Z98.51 TUBAL LIGATION STATUS 05/17/2017 NURA GOODSON MD Ot E11.9 TYPE 2 DIABETES MELLITUS WITHOUT COMPLIC 05/17/2017 NURA GOODSON MD Ot F32.9 MAJOR DEPRESSIVE DISORDER, SINGLE EPISOD 05/17/2017 NURA GOODSON MD Ot F41.9 ANXIETY DISORDER, UNSPECIFIED 05/17/2017 NURA GOODSON MD Ot G40.909 EPILEPSY, UNSP, NOT INTRACTABLE, WITHOUT 05/17/2017 NURA GOODSON MD Ot G43.909 MIGRAINE, UNSP, NOT INTRACTABLE, WITHOUT 05/17/2017 NURA GOODSON MD Ot G47.30 SLEEP APNEA, UNSPECIFIED 05/17/2017 NURA GOODSON MD Ot J11.1 FLU DUE TO UNIDENTIFIED INFLUENZA VIRUS 05/17/2017 NURA GOODSON MD Ot J44.9 CHRONIC OBSTRUCTIVE PULMONARY DISEASE, U 05/17/2017 NURA GOODSON MD Ot R05 COUGH 05/17/2017 NURA GOODSON MD Ot Z87.19 PERSONAL HISTORY OF OTHER DISEASES OF 05/17/2017 NURA GOODSON MD Ot Z87.59 PERSONAL HISTORY OF COMP OF PREG, CHLDBR 05/17/2017 NURA GOODSON MD Ot Z90.49 ACQUIRED ABSENCE OF OTHER SPECIFIED PART 05/17/2017 NURA GOODSON MD Ot Z90.710 ACQUIRED ABSENCE OF BOTH CERVIX AND UTER 05/17/2017 NURA GOODSON MD Ot Z91.5 PERSONAL HISTORY OF SELF-HARM 05/17/2017 NURA GOODSON MD Ot Z98.51 TUBAL LIGATION STATUS 10/22/2017 MARY ALCALA MD Ot E11.9 TYPE 2 DIABETES MELLITUS WITHOUT COMPLIC 10/22/2017 MARY ALCALA MD Ot F32.9 MAJOR DEPRESSIVE DISORDER, SINGLE EPISOD 10/22/2017 MARY ALCALA MD, Ot F41.9 ANXIETY DISORDER, UNSPECIFIED 10/22/2017 MARY ALCALA MD Ot G40.909 EPILEPSY, UNSP, NOT INTRACTABLE, WITHOUT 10/22/2017 MARY ALCALA MD, Ot G43.909 MIGRAINE, UNSP, NOT INTRACTABLE, WITHOUT 10/22/2017 MARY ALCALA MD Ot G47.30 SLEEP APNEA, UNSPECIFIED 10/22/2017 MARY ALCALA MD Ot I10 ESSENTIAL (PRIMARY) HYPERTENSION 10/22/2017 MARY ALCALA MD Ot J44.9 CHRONIC OBSTRUCTIVE PULMONARY DISEASE, U 10/22/2017 MARY ALCALA MD Ot K21.9 GASTRO-ESOPHAGEAL REFLUX DISEASE WITHOUT 10/22/2017 MARY ALCALA MD Ot R10.10 UPPER ABDOMINAL PAIN, UNSPECIFIED 10/22/2017 MARY ALCALA MD Ot R10.12 LEFT UPPER QUADRANT PAIN 10/22/2017 MARY ALCALA MD Ot Z79.51 FPC (CURRENT) USE OF INHALED STERO 10/22/2017 MARY ALCALA MD Ot Z80.0 FAMILY HISTORY OF MALIGNANT NEOPLASM OF 10/22/2017 MARY ALCALA MD Ot Z82.49 FAMILY HX OF ISCHEM HEART DIS AND OTH DI 10/22/2017 MARY ALCALA MD Ot Z87.19 PERSONAL HISTORY OF OTHER DISEASES OF TH 10/22/2017 MARY ALCALA MD, Ot Z87.440 PERSONAL HISTORY OF URINARY (TRACT) INFE 10/22/2017 MARY ALCALA MD Ot Z87.59 PERSONAL HISTORY OF COMP OF PREG, CHLDBR 10/22/2017 MARY ALCALA MD, Ot Z88.0 ALLERGY STATUS TO PENICILLIN 10/22/2017 MARY ALCALA MD, Ot Z90.710 ACQUIRED ABSENCE OF BOTH CERVIX AND UTER 10/22/2017 MARY ALCALA MD, Ot Z90.89 ACQUIRED ABSENCE OF OTHER ORGANS 10/22/2017 MARY ALCALA MD, Ot Z91.5 PERSONAL HISTORY OF SELF-HARM 10/22/2017 MARY ALCALA MD, Ot Z98.51 TUBAL LIGATION STATUS 10/25/2017 MARY ALCALA MD Ot E11.9 TYPE 2 DIABETES MELLITUS WITHOUT COMPLIC 10/25/2017 MARY ALCALA MD, Ot F32.9 MAJOR DEPRESSIVE DISORDER, SINGLE EPISOD 10/25/2017 MARY ALCALA MD Ot F41.9 ANXIETY DISORDER, UNSPECIFIED 10/25/2017 MARY ALCALA MD Ot G40.909 EPILEPSY, UNSP, NOT INTRACTABLE, WITHOUT 10/25/2017 MARY ALCALA MD Ot G43.909 MIGRAINE, UNSP, NOT INTRACTABLE, WITHOUT 10/25/2017 MARY ALCALA MD Ot G47.30 SLEEP APNEA, UNSPECIFIED 10/25/2017 MARY ALCALA MD Ot I10 ESSENTIAL (PRIMARY) HYPERTENSION 10/25/2017 MARY ALCALA MD Ot J44.9 CHRONIC OBSTRUCTIVE PULMONARY DISEASE, U 10/25/2017 MARY ALCALA MD Ot K21.9 GASTRO-ESOPHAGEAL REFLUX DISEASE WITHOUT 10/25/2017 MARY ALCALA MD Ot R10.10 UPPER ABDOMINAL PAIN, UNSPECIFIED 10/25/2017 MARY ALCALA MD Ot R10.12 LEFT UPPER QUADRANT PAIN 10/25/2017 MARY ALCALA MD Ot Z79.51 FPC (CURRENT) USE OF INHALED STERO 10/25/2017 MARY ALCALA MD Ot Z80.0 FAMILY HISTORY OF MALIGNANT NEOPLASM OF 10/25/2017 MARY ALCAAL MD Ot Z82.49 FAMILY HX OF ISCHEM HEART DIS AND OTH DI 10/25/2017 MARY ALCALA MD Ot Z87.19 PERSONAL HISTORY OF OTHER DISEASES OF TH 10/25/2017 MARY ALCALA MD Ot Z87.440 PERSONAL HISTORY OF URINARY (TRACT) INFE 10/25/2017 MARY ALCALA MD Ot Z87.59 PERSONAL HISTORY OF COMP OF PREG, CHLDBR 10/25/2017 MARY ALCALA MD Ot Z88.0 ALLERGY STATUS TO PENICILLIN 10/25/2017 MARY ALCALA MD Ot Z90.710 ACQUIRED ABSENCE OF BOTH CERVIX AND UTER 10/25/2017 MARY ALCALA MD Ot Z90.89 ACQUIRED ABSENCE OF OTHER ORGANS 10/25/2017 MARY ALCALA MD Ot Z91.5 PERSONAL HISTORY OF SELF-HARM 10/25/2017 MARY ALCALA MD Ot Z98.51 TUBAL LIGATION STATUS 10/28/2017 EDUARDO GRUBER Ot Z12.31 ENCNTR SCREEN MAMMOGRAM FOR MALIGNANT NE 11/12/2017 EDUARDO GRUBER Ot Z12.31 ENCNTR SCREEN MAMMOGRAM FOR MALIGNANT NE Procedures Code [place] [address] MEASURE BLOOD OXYGEN LEVEL 06/28/2012 96425 ROUTINE VENIPUNCTURE 04/24/2013 41932 CBC 04/24/2013 [id number] GFR CALC (RESULT ONLY) 04/24/2013 19689 CMP 04/24/2013 03964 LIPID PANEL 04/24/2013 90526 CULTURE URINE 06/20/2013 46405 UA LONG DIP 06/20/2013 46907 XRAY HAND RIGHT MIN 3 VIEWS 11/14/2013 23079 MAMMOGRAM DX, STEFFANIE 11/14/2013 64608 ROUTINE VENIPUNCTURE 02/05/2014 86776 CBC 02/05/2014 46492 CMP 02/05/2014 80736 LIPID PANEL 02/05/2014 [id number] GFR CALC (RESULT ONLY) 02/05/2014 21753 UA LONG DIP 08/27/2014 Results Test Result [...] culture - 01/06/16 16:26 Bacterial urine culture [id number] NRG COLONY COUNT >100,000/ML NRG URINE CULTURE [...] plasma albumin measurement (mass/volume) 3.6 g/dL 3.2-4.5 Anaerobic and Aerobic Culture - 03/24/16 10:18 Anaerobic and Aerobic Culture Note Complete blood count (CBC) with automated white [...] NRG Blood erythrocyte morphology finding identification [facility] Comprehensive metabolic panel - 06/19/16 17:15 [...] measurement (mass/volume) 4.6 g/dL 3.2-4.5 Lipase - 02/17/17 17:15 Lipase 12 U/L 8-78 Urine drug [...] culture - 06/19/16 19:14 Bacterial urine culture [id number] NRG COLONY COUNT >100,000/ML NRG FTX;REPORTABLE MIXED COLONY GROWTH NRG Capillary blood glucose measurement by glucometer (mass/volume) - 07/13/16 09: 46 Capillary blood glucose measurement by glucometer (mass/volume) 105 mg/dL 70-110 Comp. Metabolic Panel (14) - 10/21/16 08:49 Glucose, Serum 101 mg/dL 65-99 BUN 22 mg/dL 6-24 Creatinine, Serum 0.80 mg/dL 0.57-1.00 eGFR If NonAfricn Am 83 mL/min/1.73 >59 eGFR If Africn Am 96 mL/min/1.73 >59 BUN/Creatinine Ratio 28 9-23 Sodium, Serum 143 mmol/L 134-144 Potassium, Serum 4.5 mmol/L 3.5-5.2 Chloride, Serum 105 mmol/L 96-106 Carbon Dioxide, Total 20 mmol/L 18-29 Calcium, Serum 9.5 mg/dL 8.7-10.2 Protein, Total, Serum 7.3 g/dL 6.0-8.5 Albumin, Serum 4.4 g/dL 3.5-5.5 Globulin, Total 2.9 g/dL 1.5-4.5 A/G Ratio 1.5 1.2-2.2 Bilirubin, Total <0.2 mg/dL 0.0-1.2 Alkaline Phosphatase, S 56 IU/L 39-117 AST (SGOT) 14 IU/L 0-40 ALT (SGPT) 15 IU/L 0-32 Lipid Panel - 10/21/16 08:49 Cholesterol, Total 209 mg/dL 100-199 Triglycerides 159 mg/dL 0-149 HDL Cholesterol 48 mg/dL >39 VLDL Cholesterol [place] 32 mg/dL 5-40 LDL Cholesterol Calc 129 mg/dL 0-99 Complete urinalysis with reflex to culture - [...] culture - 12/18/16 02:37 Bacterial urine culture [id number] NRG COLONY COUNT 10,000/ML - 100,000/ML NRG [...] human chorionic gonadotropin (hCG) measurement NEGATIVE NEGATIVE Complete blood count (CBC) with automated white blood cell (WBC) differential - 05/14/17 10:19 Blood leukocytes automated count (number/volume) 11.2 10*3/uL 4.3-11.0 Blood erythrocytes automated count (number/volume) 4.33 10*6/uL 4.35-5.85 Venous blood hemoglobin measurement (mass/volume) 13.1 g/dL 11.5-16.0 Blood hematocrit (volume fraction) 38 % 35-52 Automated erythrocyte mean corpuscular volume 87 [foz_us] 80-99 Automated erythrocyte mean corpuscular hemoglobin (mass per erythrocyte) 30 pg 25-34 Automated erythrocyte mean corpuscular hemoglobin concentration measurement ( mass/volume) 35 g/dL 32-36 Automated erythrocyte distribution width ratio 13.1 % 10.0-14.5 Automated blood platelet count (count/volume) 278 10*3/uL 130-400 Automated blood platelet mean volume measurement 8.5 [foz_us] 7.4-10.4 Automated blood neutrophils/100 leukocytes 75 % 42-75 Automated blood lymphocytes/100 leukocytes 19 % 12-44 Blood monocytes/100 leukocytes 5 % 0-12 Automated blood eosinophils/100 leukocytes 1 % 0-10 Automated blood basophils/100 leukocytes 0 % 0-10 Blood neutrophils automated count (number/volume) 8.4 10*3 1.8-7.8 Blood lymphocytes automated count (number/volume) 2.1 10*3 1.0-4.0 Blood monocytes automated count (number/volume) 0.5 10*3 0.0-1.0 Automated eosinophil count 0.1 10*3/uL 0.0-0.3 Automated blood basophil count (count/volume) 0.0 10*3/uL 0.0-0.1 Comprehensive metabolic panel - 05/14/17 10:19 Serum or plasma sodium measurement (moles/volume) 141 mmol/L 135-145 Serum or plasma potassium measurement (moles/volume) 4.3 mmol/L 3.6-5.0 Serum or plasma chloride measurement (moles/volume) 104 mmol/L 98-107 Carbon dioxide 25 mmol/L 21-32 Serum or plasma anion gap determination (moles/volume) 12 mmol/L 5-14 Serum or plasma urea nitrogen measurement (mass/volume) 14 mg/dL 7-18 Serum or plasma creatinine measurement (mass/volume) 0.81 mg/dL 0.60-1.30 Serum or plasma urea nitrogen/creatinine mass ratio 17 NRG Serum or plasma creatinine measurement with calculation of estimated glomerular filtration rate > NRG Serum or plasma glucose measurement (mass/volume) 118 mg/dL 70-105 Serum or plasma calcium measurement (mass/volume) 9.3 mg/dL 8.5-10.1 Serum or plasma total bilirubin measurement (mass/volume) 0.4 mg/dL 0.1-1.0 Serum or plasma alkaline phosphatase measurement (enzymatic activity/volume) 66 U/L 40-136 Serum or plasma aspartate aminotransferase measurement (enzymatic activity/ volume) 18 U/L 5-34 Serum or plasma alanine aminotransferase measurement (enzymatic activity/volume ) 29 U/L 0-55 Serum or plasma protein measurement (mass/volume) 8.1 g/dL 6.4-8.2 Serum or plasma albumin measurement (mass/volume) 4.3 g/dL 3.2-4.5 Complete urinalysis with reflex to culture - 05/14/17 11:33 Urine color determination YELLOW NRG Urine clarity determination CLEAR NRG Urine pH measurement by test strip 5 5-9 Specific gravity of urine by test strip 1.020 1.016- 1.022 Urine protein assay by test strip, semi-quantitative NEGATIVE NEGATIVE Urine glucose detection by automated test strip NEGATIVE NEGATIVE Erythrocytes detection in urine sediment by light microscopy NEGATIVE NEGATIVE Urine ketones detection by automated test strip NEGATIVE NEGATIVE Urine nitrite detection by test strip NEGATIVE NEGATIVE Urine total bilirubin detection by test strip NEGATIVE NEGATIVE Urine urobilinogen measurement by automated test strip (mass/volume) NORMAL NORMAL Urine leukocyte esterase detection by dipstick 1+ NEGATIVE Automated urine sediment erythrocyte count by microscopy (number/high power field) NONE NRG Automated urine sediment leukocyte count by [...] detection in urine sediment by light microscopy MODERATE NRG Complete urinalysis with reflex to culture YES NRG Bacterial urine culture - 05/14/17 11:33 URINE CULTURE RESULTS <10,000/ML NRG TSH - 08/02/17 10:17 TSH NRG Complete blood count (CBC) with automated white blood cell (WBC) differential - 10/22/17 10:25 Blood leukocytes automated count (number/volume) 8.3 10*3/uL 4.3-11.0 Blood erythrocytes automated count (number/volume) 4.20 10*6/uL 4.35-5.85 Venous blood hemoglobin measurement (mass/volume) 13.1 g/dL 11.5-16.0 Blood hematocrit (volume fraction) 38 % 35-52 Automated erythrocyte mean corpuscular volume 90 [foz_us] 80-99 Automated erythrocyte mean corpuscular hemoglobin (mass per erythrocyte) 31 pg 25-34 Automated erythrocyte mean corpuscular hemoglobin concentration measurement ( mass/volume) 35 g/dL 32-36 Automated erythrocyte distribution width ratio 13.6 % 10.0-14.5 Automated blood platelet count (count/volume) 263 10*3/uL 130-400 Automated blood platelet mean volume measurement 8.3 [foz_us] 7.4-10.4 Automated blood neutrophils/100 leukocytes 72 % 42-75 Automated blood lymphocytes/100 leukocytes 22 % 12-44 Blood monocytes/100 leukocytes 4 % 0-12 Automated blood eosinophils/100 leukocytes 2 % 0-10 Automated blood basophils/100 leukocytes 0 % 0-10 Blood neutrophils automated count (number/volume) 6.0 10*3 1.8-7.8 Blood lymphocytes automated count (number/volume) 1.8 10*3 1.0-4.0 Blood monocytes automated count (number/volume) 0.4 10*3 0.0-1.0 Automated eosinophil count 0.1 10*3/uL 0.0-0.3 Automated blood basophil count (count/volume) 0.0 10*3/uL 0.0-0.1 Comprehensive metabolic panel - 10/22/17 10:25 Serum or plasma sodium measurement (moles/volume) 141 mmol/L 135-145 Serum or plasma potassium measurement (moles/volume) 3.4 mmol/L 3.6-5.0 Serum or plasma chloride measurement (moles/volume) 104 mmol/L 98-107 Carbon dioxide 25 mmol/L 21-32 Serum or plasma anion gap determination (moles/volume) 12 mmol/L 5-14 Serum or plasma urea nitrogen measurement (mass/volume) 11 mg/dL 7-18 Serum or plasma creatinine measurement (mass/volume) 0.81 mg/dL 0.60-1.30 Serum or plasma urea nitrogen/creatinine mass ratio 14 NRG Serum or plasma creatinine measurement with calculation of estimated glomerular filtration rate > NRG Serum or plasma glucose measurement (mass/volume) 138 mg/dL 70-105 Serum or plasma calcium measurement (mass/volume) 9.7 mg/dL 8.5-10.1 Serum or plasma total bilirubin measurement (mass/volume) 0.6 mg/dL 0.1-1.0 Serum or plasma alkaline phosphatase measurement (enzymatic activity/volume) 60 U/L 40-136 Serum or plasma aspartate aminotransferase measurement (enzymatic activity/ volume) 23 U/L 5-34 Serum or plasma alanine aminotransferase measurement (enzymatic activity/volume ) 31 U/L 0-55 Serum or plasma protein measurement (mass/volume) 8.0 g/dL 6.4-8.2 Serum or plasma albumin measurement (mass/volume) 4.6 g/dL 3.2-4.5 Serum or plasma C reactive protein measurement (mass/volume) - 10/22/17 10:25 Serum or plasma C reactive protein measurement (mass/volume) 1.08 mg /dL 0.00-0.50 Encounters ACCT No. Visit Date/Time Discharge Status Pt. Type Provider Facility Loc./Unit Complaint [id number] 08/27/2014 08:55:00 08/27/2014 23:59:59 CLS Outpatient EDUARDO GRUBER APRN S [id number] 07/23/2014 10:13:00 07/23/2014 23:59:59 CLS Outpatient DEXTER GRUBER APRNA S [id number] 04/10/2014 08:19:00 04/10/2014 23:59:59 CLS Outpatient DXETER GRUBER APRNA S [id number] 02/05/2014 08:51:00 02/05/2014 23:59:59 CLS Outpatient DEXTER GRUBER APRNA S [id number] 11/14/2013 09:27:00 11/14/2013 23:59:59 CLS Outpatient BENTLEY SARABIA APRN [id number] 11/14/2013 08:46:00 11/14/2013 23:59:59 CLS Outpatient DEXTER GRUBER APRNA S [id number] 10/26/2013 16:57:00 10/26/2013 23:59:59 CLS Outpatient DEXTER GRUBER APRNA S [id number] 06/20/2013 08:26:00 06/20/2013 23:59:59 CLS Outpatient JON GRUBER APRNNDA S [id number] 05/01/2013 09:33:00 05/01/2013 23:59:59 CLS Outpatient DEXTER GRUBER APRNA S [id number] 04/24/2013 09:37:00 04/24/2013 23:59:59 CLS Outpatient ELVIA RUIZ DO [id number] 12/19/2012 06:36:00 12/19/2012 23:59:59 CLS Outpatient CHRISS MENDEZ MD [id number] 06/27/2012 13:49:00 06/27/2012 23:59:59 CLS Outpatient [id number] 06/27/2012 13:49:00 06/27/2012 23:59:59 CLS Outpatient [id number] 10/22/2016 08:35:00 Document Registration [id number] 10/11/2017 08:20:00 10/11/2017 23:59:59 CLS Outpatient EDUARDO GRUBER APRN [facility] [id number] 08/02/2017 10:17:00 Document Registration [id number] 03/27/2016 18:05:00 Document Registration [id number] 10/27/2017 10:20:00 10/27/2017 23:59:59 CLS Outpatient EDUARDO GRUBERP [facility] RAD SCREENING [id number] 10/22/2017 10:06:00 10/22/2017 14:39:00 DIS Emergency MARY ALCALA MD [facility] ER V/D/DIZZINESS [id number] 05/14/2017 08:08:00 05/14/2017 12:14:00 DIS Emergency HAMZAH SILVA, NURA Trujillo [facility] ER FLU [id number] 12/18/2016 08:50:00 12/21/2016 11:15:00 DIS Inpatient BRIONNA HARLEY MD [facility] 4TH SUICIDE IDEATION;PENDING ADMIT TO [place] [id number] 07/27/2016 09:45:00 07/27/2016 12:05:00 DIS Outpatient ARUN CABRERA MD [facility] ENDO RECTAL PAIN;RECTAL BLEEDING [id number] 07/23/2016 06:20:00 07/23/2016 17:02:00 DIS Outpatient ARUN CABRERA MD [facility] PREOP RECTAL PAIN; BLEEDING [id number] 07/13/2016 09:22:00 07/13/2016 12:05:00 DIS Outpatient ARUN CABRERA MD [facility] ENDO RECTAL BLEEDING [id number] 07/08/2016 09:22:00 07/08/2016 09:49:00 DIS Outpatient ARUN CABRERA MD M [facility] PREOP RECTAL BLEEDING [id number] 06/19/2016 19:12:00 06/19/2016 21:25:00 DIS Emergency BISI BUCK APRN [facility] ER RECTAL BLEEDING, PAIN [id number] 04/06/2016 10:55:00 04/06/2016 23:59:59 CLS Outpatient RICK SILVA, ARUN Rand [facility] RAD CELLULITIS [id number] 03/31/2016 08:46:00 03/31/2016 16:00:00 DIS Outpatient ANIL SILVA, TONI Link [facility] WOUNDCARE [id number] 01/06/2016 20:30:00 01/07/2016 16:22:00 DIS Inpatient ELVIA RUIZ DO [facility] 4TH RLQ ABD PAIN,N/V,UTI [id number] 08/20/2015 13:13:00 08/21/2015 10:30:00 DIS Inpatient VIRI SILVA, SHIVA Faulkner [facility] 4TH INTRACTABLE VERTIGO HYPERTENSIVE URGENCY [id number] 02/11/2015 19:27:00 02/11/2015 21:00:00 DIS Emergency BISI BUCK APRN [facility] ER POSS FOREIGN BODY [id number] 11/26/2014 09:55:00 11/26/2014 10:47:00 DIS Emergency ELIGIO JUAREZ DO [facility] ER RASH [id number] 10/24/2014 08:39:00 10/24/2014 11:11:00 DIS Emergency NURA GOODSON MD [facility] ER SCABIES [id number] 10/10/2014 08:50:00 10/10/2014 09:24:00 DIS Emergency DEEDEEVLADIMIR Villagomez DO [facility] ER RASH [id number] 03/21/2014 14:10:00 03/21/2014 15:45:00 DIS Emergency BISI BUCK APRN [facility] ER ABD PAIN [id number] 03/03/2014 13:44:00 03/03/2014 17:01:00 DIS Emergency BISI BUCK APRN [facility] ER R SIDE LOWER ABD PAIN [id number] 11/28/2013 11:21:00 11/28/2013 23:59:59 CLS Outpatient CARMEN SARABIABRYCE Faulkner TILE CONDUIT LAYER [facility] RAD RT NIPPLE INVERTED, DISCOLORATION [id number] 10/24/2013 16:35:00 10/24/2013 16:58:00 DIS Emergency BISI BUCK TILE CONDUIT LAYER [facility] ER RASH [id number] 08/14/2013 10:40:00 08/14/2013 11:15:00 DIS Emergency DEEDEE ABRAHAM VLADIMIR K [facility] ER SWOLLEN FINGER RING STUCK [id number] 11/23/2012 13:52:00 11/30/2012 10:52:00 DIS Outpatient RENETTA NEW MD [facility] SDC ACUTE ABD PAIN [id number] 03/21/2014 17:14:00 Document Registration [id number] 03/21/2014 17:14:00 Document Registration [id number] 03/21/2014 17:14:00 Document Registration [id number] 03/21/2014 17:14:00 Document Registration [id number] 06/20/2012 09:23:00 Document Registration [id number] 05/09/2012 07:52:00 Document Registration [id number] 12/11/2011 22:50:00 Document Registration [id number] 08/24/2011 22:14:00 Document Registration [id number] 2010 20:37:00 Document Registration [id number] 09/19/2010 20:35:00 Document Registration [id number] 07/01/2010 23:57:00 Document Registration
[2017-12-14 20:21] VITALS: BP 146/95
== END 2017-12-14 20:22 | disposition home or self-care (01) ==
LOC: EDUNIT# 19:33 → ER 19:34
DX: L30.4 Erythema intertrigo (principal); J44.9 Chronic obstructive pulmonary disease, unspecified; I10 Essential (primary) hypertension; G43.909 Migraine, unspecified, not intractable, without status migrainosus; G40.909 Epilepsy, unspecified, not intractable, without status epilepticus; E11.9 Type 2 diabetes mellitus without complications; F41.9 Anxiety disorder, unspecified; F32.9 Major depressive disorder, single episode, unspecified; Z80.0 Family history of malignant neoplasm of digestive organs; Z87.442 Personal history of urinary calculi; Z90.49 Acquired absence of other specified parts of digestive tract; Z88.0 Allergy status to penicillin; Z88.8 Allergy status to other drugs, medicaments and biological substances; Z90.710 Acquired absence of both cervix and uterus; Z98.51 Tubal ligation status
CPT/HCPCS: 99283

== ENCOUNTER 2018-01-24 18:41 | Observation (INO) | payer MEDICAID ==
[~2018-01-24] VITALS: Ht 152.4 cm; Wt 90.0 kg
[~2018-01-24 18:41] MED LIST changes: +CLOT15CR4 TP
--- NOTE | 2018-01-24 18:59 | ED Psychosocial ---
General Chief Complaint: Suicidal Ideation Risk Stated Complaint: SUICIDAL IDEATIONS Source: patient Exam Limitations: no limitations History of Present Illness Date Seen by Provider: Jan 24, 2018 Time Seen by Provider: 18:58 Initial Comments To ER per EMS from home with reports of suicidal ideations. She states "I want to kill myself, I'm scared" and continues to recite this phrase over and over. She had about a 12 pack of beer today and does not drink daily but does drink once or twice a week. She is suicidal after an argument with her . Timing/Duration: this evening, getting worse Associated Symptoms: anxiety, suicidal ideation Allergies and Home Medications Allergies Coded Allergies: Penicillins (Verified Allergy, Unknown, 08/20/15) tuberculin, purified protein deriva (Verified Adverse Reaction, Mild, 08/19) Home Medications Albuterol Sulfate 8.5 Gm Hfa.aer.ad, 2 PUFF INH Q6H PRN for SHORTNESS OF BREATH, (Reported) Cetirizine HCl 10 Mg Tablet, 10 MG PO DAILY, (Reported) Clotrimazole/Betamethasone Dip 15 Gm Cream..g., 15 GM TP BID Prescribed by: VLADIMIR MARK on 12/14/171947 Dicyclomine HCl 20 Mg Tablet, 20 MG PO BID, (Reported) Levothyroxine Sodium 50 Mcg Tablet, 50 MCG PO DAILY@0630 Prescribed by: MANI THORNTON on 12/21/16 0948 Montelukast Sodium 10 Mg Tablet, 10 MG PO HS, (Reported) Nitrofurantoin Monohyd/M-Cryst 100 Mg Capsule, 1 TAB PO BID Prescribed by: MANI THORNTON on 12/21/16 0948 Ondansetron 8 Mg Tab.rapdis, 8 MG PO every 4 hours Prescribed by: NURA GOODSON on 05/14/17 1148 Propranolol HCl 60 Mg Tablet, 60 MG PO BID, (Reported) Sertraline HCl 50 Mg Tablet, 50 MG PO DAILY, (Reported) Sucralfate 1 Gm Tablet, 1 GM PO ACHS Prescribed by: MARY ALCALA on 10/22/17 1429 Patient Home Medication List Home Medication List Reviewed: Yes Review of Systems Constitutional: see HPI EENTM: see HPI Respiratory: no symptoms reported Cardiovascular: no symptoms reported Genitourinary: no symptoms reported Musculoskeletal: see HPI Skin: no symptoms reported Psychiatric/Neurological: No Symptoms Reported Past Uctvxwq-Mknnzp-Pnqffd Hx Patient Social History Alcohol Use: Regular Use Number of Drinks Today: 12 Alcohol Beverage of Choice: Beer Recreational Drug Use: No Smoking Status: Never a Smoker Recent Foreign Travel: No Contact w/Someone Who Travel: No Recent Hopitalizations: No Immunizations Up To Date Tetanus Booster (TDap): Unknown Date of Pneumonia Vaccine: Feb 01, 2012 Date of Influenza Vaccine: Feb 01, 2016 Seasonal Allergies Seasonal Allergies: No Past Medical History Surgeries: Yes (X2 C-SECT,TUBAL LIG.,APPY) Appendectomy, Section, Gallbladder, 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, Oophorectomy, 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 Respiratory: Yes Asthma, Sleep Apnea, COPD Currently Using CPAP: Yes Currently Using BIPAP: No Cardiac: Yes Hypertension, Syncope Neurological: Yes Headaches /Migraines, Seizure Disorder, Vertigo Reproductive Disorders: Yes Female Reproductive Disorders: Denies 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: 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, 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 Sexually Transmitted Disease: No HIV/AIDS: No Genitourinary: No UTI-Chronic Gastrointestinal: Yes (rectal pain and bleeding) Gastroesophageal Reflux, Ulcer Musculoskeletal: Yes Chronic Back Pain Endocrine: Yes Diabetes, Non-Insulin dep Tinnitis Loss of Vision: Denies Hearing Impairment: Denies Cancer: No Psychosocial: Yes (EXTENSIVE PSYCH ISSUES, MULTIPLE PSYCH ADMITS, INCLUDING [place]) Anxiety, Suicide Attempts, Depression Integumentary: No Blood Disorders: No Adverse Reaction/Blood Tranf: No Family Medical History Congenital heart disease G8 SISTER (HOLE IN HEART ) Neoplasm 19 MOTHER (STOMACH ) G8 BROTHER (STOMACH) No Pertinent Family Hx Physical Exam Vital Signs - First Documented 01/24/18 18:45 Temp 98.1 Pulse 86 Resp 18 B/P (MAP) 168/99 (122) Pulse Ox 98 Capillary Refill : Height, Weight, BMI Height: 5'2.00" Weight: 160lbs. 0.0oz. 72.838035ck; 25.6 BMI Method:Stated General Appearance: WD/WN, no apparent distress HEENT: PERRL/EOMI, normal ENT inspection Respiratory: no respiratory distress, no accessory muscle use Cardiovascular: regular rate, rhythm, no murmur Gastrointestinal: normal bowel sounds, non tender, soft Neurologic/Psychiatric: alert, normal mood/affect, oriented x 3 Appearance/Memory: appropriate appearance, appropriate insight Thoughts/Hallucinations: normal thought pattern, no apparent hallucination Skin: normal color, warm/dry Progress/Results/Core Measures Results/Orders Lab Results Laboratory Tests Test 01/24/18 19:18 01/24/18 19:24 Range/Units Urine Color YELLOW Urine Clarity CLEAR Urine pH 6.5 5-9 Urine Specific [place] 1.010 L 1.016-1.022 Urine Protein NEGATIVE NEGATIVE Urine Glucose (UA) NEGATIVE NEGATIVE Urine Ketones NEGATIVE NEGATIVE Urine Nitrite NEGATIVE NEGATIVE Urine Bilirubin NEGATIVE NEGATIVE Urine Urobilinogen NORMAL NORMAL MG/DL Urine Leukocyte Esterase 1+ H NEGATIVE Urine RBC (Auto) NEGATIVE NEGATIVE Urine RBC NONE /HPF Urine WBC 0-2 /HPF Urine Squamous Epithelial Cells 0-2 /HPF Urine Crystals NONE /LPF Urine Bacteria NONE /HPF Urine Casts NONE /LPF Urine Mucus NEGATIVE /LPF Urine Culture Indicated NO Urine Opiates Screen NEGATIVE NEGATIVE Urine Oxycodone Screen NEGATIVE NEGATIVE Urine Methadone Screen NEGATIVE NEGATIVE Urine Propoxyphene Screen NEGATIVE NEGATIVE Urine Barbiturates Screen NEGATIVE NEGATIVE Ur Tricyclic Antidepressants Screen NEGATIVE NEGATIVE Urine Phencyclidine Screen NEGATIVE NEGATIVE Urine Amphetamines Screen NEGATIVE NEGATIVE Urine Methamphetamines Screen NEGATIVE NEGATIVE Urine Benzodiazepines Screen NEGATIVE NEGATIVE Urine Cocaine Screen NEGATIVE NEGATIVE Urine Cannabinoids Screen NEGATIVE NEGATIVE White Blood Count 7.9 4.3-11.0 10^3/uL Red Blood Count 4.04 L 4.35-5.85 10^6/uL Hemoglobin 12.4 11.5-16.0 G/DL Hematocrit 35 35-52 % Mean Corpuscular Volume 88 80-99 FL Mean Corpuscular Hemoglobin 31 25-34 PG Mean Corpuscular Hemoglobin Concent 35 32-36 G/DL Red Cell Distribution Width 13.9 10.0-14.5 % Platelet Count 282 130-400 10^3/uL Mean Platelet Volume 8.3 7.4-10.4 FL Neutrophils (%) (Auto) 55 42-75 % Lymphocytes (%) (Auto) 38 12-44 % Monocytes (%) (Auto) 4 0-12 % Eosinophils (%) (Auto) 3 0-10 % Basophils (%) (Auto) 1 0-10 % Neutrophils # (Auto) 4.3 1.8-7.8 X 10^3 Lymphocytes # (Auto) 3.0 1.0-4.0 X 10^3 Monocytes # (Auto) 0.3 0.0-1.0 X 10^3 Eosinophils # (Auto) 0.3 0.0-0.3 10^3/uL Basophils # (Auto) 0.0 0.0-0.1 10^3/uL Sodium Level 141 135-145 MMOL/L Potassium Level 4.2 3.6-5.0 MMOL/L Chloride Level 106 98-107 MMOL/L Carbon Dioxide Level 21 21-32 MMOL/L Anion Gap 14 5-14 MMOL/L Blood Urea Nitrogen 12 7-18 MG/DL Creatinine 0.82 0.60-1.30 MG/DL Estimat Glomerular Filtration Rate > 60 BUN/Creatinine Ratio 15 Glucose Level 116 H 70-105 MG/DL Calcium Level 9.8 8.5-10.1 MG/DL Corrected Calcium 8.5-10.1 MG/DL Total Bilirubin 0.3 0.1-1.0 MG/DL Aspartate Amino Transf (AST/SGOT) 15 5-34 U/L Alanine Aminotransferase (ALT/SGPT) 16 0-55 U/L Alkaline Phosphatase 57 40-136 U/L Total Protein 8.2 6.4-8.2 GM/DL Albumin 4.6 H 3.2-4.5 GM/DL Salicylates Level < 5.0 L 5.0-20.0 MG/DL Acetaminophen Level < 10 L 10-30 UG/ML Serum Alcohol 190 H <10 MG/DL My Orders Orders - BISI BUCK APRN Salicylate (01/24/18 18:43) Acetaminophen (01/24/18 18:43) Cbc With Automated Diff (01/24/18 18:43) Alcohol (01/24/18 18:43) Ekg Tracing (01/24/18 18:43) Comprehensive Metabolic Panel (01/24/18 18:43) Ua Culture If Indicated (01/24/18 18:43) Drug Screen Stat (Urine) (01/24/18 18:43) Vital Signs/I&O 01/24/18 18:45 Temp 98.1 Pulse 86 Resp 18 B/P (MAP) 168/99 (122) Pulse Ox 98 Departure Communication (Admissions) Time/Spoke to Admitting Phy: 20:07 Discussed the case with Dr. Sauceda. We'll admit the patient, suicide precautions , [facility] consult in the morning. She is sleeping at this time. Impression Primary Impression: Suicidal ideations Additional Impression: Alcohol intoxication Disposition: ADMITTED INPATIENT Condition: Stable Admissions Decision to Admit Reason: Admit from ER (General) Decision to Admit/Date: Jan 24, 2018 Time/Decision to Admit Time: 19:29 Departure-Patient Inst. Referrals: ELVIA RUIZ DO (PCP) Primary Care Physician EDUARDO GRUBER (Family) Primary Care Physician BISI BUCK APRN Jan 24, 2018 18:59
[2018-01-24 19:31] LABS: BASOPHILS % (AUTO) 1 % (0-10); EOSINOPHILS # (AUTO) 0.3 10^3/uL (0.0-0.3); EOSINOPHILS % (AUTO) 3 % (0-10); HEMATOCRIT 35 % (35-52); HEMOGLOBIN 12.4 G/DL (11.5-16.0); LYMPHOCYTES % (AUTO) 38 % (12-44); MEAN CORPUSCULAR HEMOGLOBIN 31 PG (25-34); MEAN CORPUSCULAR HGB CONC 35 G/DL (32-36); MEAN CORPUSCULAR VOLUME 88 FL (80-99); MEAN PLATELET VOLUME 8.3 FL (7.4-10.4); MONOCYTES # (AUTO) 0.3 X 10^3 (0.0-1.0); MONOCYTES % (AUTO) 4 % (0-12); NEUTROPHILS # (AUTO) 4.3 X 10^3 (1.8-7.8); NEUTROPHILS % (AUTO) 55 % (42-75); PLATELET COUNT 282 10^3/uL (130-400); RED BLOOD COUNT 4.04 10^6/uL (4.35-5.85); RED CELL DISTRIBUTION WIDTH 13.9 % (10.0-14.5); WHITE BLOOD COUNT 7.9 10^3/uL (4.3-11.0)
[2018-01-24 19:31] LABS: BILIRUBIN,URINE NEGATIVE (NEGATIVE); CLARITY,URINE CLEAR; COLOR,URINE YELLOW; GLUCOSE, URINE (UA) NEGATIVE (NEGATIVE); KETONES,URINE NEGATIVE (NEGATIVE); LEUKOCYTE ESTERASE ,URINE 1+ (NEGATIVE); NITRITE,URINE NEGATIVE (NEGATIVE); PH,URINE 6.5 (5-9); PROTEIN,URINE NEGATIVE (NEGATIVE); UROBILINOGEN,URINE NORMAL (NORMAL)
[2018-01-24 19:44] LABS: AMPHETAMINE SCREEN, URINE NEGATIVE (NEGATIVE); BARBITURATE SCREEN URINE NEGATIVE (NEGATIVE); BENZODIAZEPINES SCREEN URINE NEGATIVE (NEGATIVE); CANNABINOID SCREEN, URINE NEGATIVE (NEGATIVE); COCAINE SCREEN URINE NEGATIVE (NEGATIVE); METHADONE STAT NEGATIVE (NEGATIVE); METHAMPHETAMINE SCREEN URINE S NEGATIVE (NEGATIVE); OPIATE SCREEN URINE NEGATIVE (NEGATIVE); OXYCODONE STAT NEGATIVE (NEGATIVE); PROPOXYPHENE STAT NEGATIVE (NEGATIVE); TRICYCLIC ANTIDEPRESSANTS SCRE NEGATIVE (NEGATIVE)
[2018-01-24 19:46] LABS: SQUAMOUS EPITHELIAL CELL,UR 0-2 /HPF; WBC,URINE 0-2 /HPF
[2018-01-24 19:52] LABS: ALANINE AMINOTRANSFERASE 16 U/L (0-55); ALBUMIN 4.6 GM/DL (3.2-4.5); ALKALINE PHOSPHATASE 57 U/L (40-136); BILIRUBIN,TOTAL 0.3 MG/DL (0.1-1.0); BUN/CREATININE RATIO 15; CALCIUM 9.8 MG/DL (8.5-10.1); CARBON DIOXIDE 21 MMOL/L (21-32); CHLORIDE 106 MMOL/L (98-107); CREATININE SERUM 0.82 MG/DL (0.60-1.30); GFR ESTIMATED > 60; GLUCOSE 116 MG/DL (70-105); POTASSIUM 4.2 MMOL/L (3.6-5.0); SALICYLATE < 5.0 MG/DL (5.0-20.0); SODIUM 141 MMOL/L (135-145); TOTAL PROTEIN 8.2 GM/DL (6.4-8.2)
[2018-01-24 20:02] LABS: ACETAMINOPHEN < 10 UG/ML (10-30)
--- OUTSIDE RECORDS SUMMARY | 2018-01-24 20:08 | XMS REPORT ---
Author Author EDUARDO GRUBER Organization [facility] Address [address] [place] [address] Care Team Providers Care Clinical Laboratory Medical Director Name Role Phone EDUARDO GRUBER Unavailable PROBLEMS Type Condition ICD9-CM Code JOC56-ZN Code Onset Dates Condition Status SNOMED Code Problem Headache R51 Active 07377385 Problem Irritable bowel syndrome without diarrhea K58.9 Active 82542268 Problem Hypoxemia R09.02 Active 949823570 Problem Mixed hyperlipidemia E78.2 Active 862272985 Problem Asthma 493.90 Active 349079744 Problem Vaginitis N76.0 Active 16624823 Problem Primary insomnia F51.01 Active 6028357 Problem Acquired hypothyroidism E03.9 Active 099045292 Problem Hypertension I10 Active 46802839 Problem Unspecified asthma, uncomplicated J45.909 Active 37707478 Problem Psychosis, unspecified psychosis type F29 Active 52004449 Problem Allergic rhinitis, unspecified allergic rhinitis type J30.9 Active 01700672 ALLERGIES No Information ENCOUNTERS Encounter Location Date Diagnosis [place] [id number] [address] 62829- 6054 Jan, [place] [id number] [address] 88083- 7445 Dec, [place] [address] 64755- 1743 Dec, Bronchitis J40 and Herpes zoster without complication B02.9 [place] [address] 11399- 9182 Oct, Primary insomnia F51.01 [place] [id number] [address] 38118- 1490 Oct, Forgetfulness R68.89 ; Psychosis, unspecified psychosis type F29 ; Acquired hypothyroidism E03.9 ; Mixed hyperlipidemia E78.2 ; Hypertension I10 ; Encounter for immunization Z23 and Breast cancer screening by mammogram Z12.31 [place] [address] 35826- 5776 Aug, Onychomycosis B35.1 [place] [address] 20174- 0984 Aug, Mixed hyperlipidemia E78.2 [place] [address] 48115- 1558 Aug, Scabies B86 ; Allergic rhinitis, unspecified allergic rhinitis type J30.9 ; Primary insomnia F51.01 ; Dysuria R30.0 ; Psychosis, unspecified psychosis type F29 ; Acquired hypothyroidism E03.9 and Hypertension I10 [place] [address] 28142- 7244 May, Hypertension I10 [address] 49166- 5478 Apr, Unspecified asthma, uncomplicated J45.909 and Hypertension I10 [address] 11841- 2927 Mar, Hypertension I10 [place] [address] 33345- 0739 Mar, Hypertension I10 ; Psychosis, unspecified psychosis type F29 ; Forgetfulness R68.89 and Encounter for immunization Z23 [place] [address] 71172- 6352 Mar, [place] [address] 98074- 6131 Jan, [address] 81669- 8689 Jan, Psychosis, unspecified psychosis type F29 [address] 09742- 6824 Jan, [facility] [id number] [address] [id number] Dec, [facility] [id number] [place] [address] 30337- 7851 Dec, Dizziness R42 [facility] [id number] [address] 91973- 0766 Oct, Hypertension I10 ; Allergic rhinitis, unspecified allergic rhinitis type J30.9 and Flea bite of multiple sites W57.XXXA [facility] [id number] [address] 92185- 1370 August, [facility] [id number] [address] 11829- 3780 August, Hypertension I10 ; Vertigo R42 ; Abdominal pain, acute, right lower quadrant R10.31 and Unspecified asthma, uncomplicated J45.909 [facility] [id number] [address] 25224- 8566 Aug, Right lower quadrant abdominal pain R10.31 ; Irritable bowel syndrome without diarrhea K58.9 and Essential hypertension I10 [facility] [id number] [address] 46461- 7624 Aug, [facility] [id number] [place] [address] 78627- 4599 Jul, [facility] [id number] [address] 48362- 7902 Jul, [facility] [id number] [place] [address] 33783- 2180 Jul, [facility] [id number] [address] 78047- 8274 Jul, [facility] [id number] [address] 49635- 2508 Jun, [facility] [id number] [address] 52760- 4686 Jun, Abdominal pain, acute, right lower quadrant R10.31 [facility] [address] [address] 5260 Jun, [facility] [id number] [address] 47773- 3157 Jun, [facility] [id number] [address] 14756- 7862 Jun, [facility] [id number] [address] 15428- 6664 Apr, [facility] [id number] [address] 26299- 4249 Apr, Decubitus skin ulcer, stage I L89.91 [facility] [id number] [place] [address] 70082- 5331 Mar, [facility] [id number] [address] 39649 -0870 Mar, Pressure ulcer, stage II L89.92 [facility] [id number] [address] 41659- 2138 Jan, Wound cellulitis L03.90 [facility] [id number] [place] [address] 25986- 0221 Jan, [facility] [id number] [address] 08095- 0794 Dec, [facility] [id number] [address] 91059- 1357 Oct, Elevated blood pressure I10 and Allergic rhinitis, unspecified allergic rhinitis type J30.9 [facility] [id number] [place] [address] 66304- 7869 August, [facility] [id number] [place] [address] 18387- 5992 August, Right lower quadrant abdominal pain R10.31 and Essential hypertension I10 [facility] [id number] [address] 99081- 2321 August, [facility] [address] 99098- 3228 August, [facility] [id number] [place] [address] 32358- 3402 Aug, [facility] [address] 26225- 2037 Aug, Hypertension I10 and Rash R21 [facility] [address] 94342- 3010 Aug, Gastritis K29.70 [facility] [address] 00564- 4497 Aug, [facility] [address] 98244- 2128 Aug, [facility] [id number] [place] [address] 34537- 3816 Aug, [facility] [address] 69368- 3587 Aug, Rash R21 ; Vertigo R42 ; Gastritis K29.70 and Urination pain R30.9 [facility] [id number] [address] 37172- 3675 Jul, [facility] [id number] [address] 85561- 4207 Jul, [facility] [id number] [address] 28849- 6490 Jul, Hypertension I10 [facility] [address] 81552- 7242 Jul, Headache R51 ; Hypertension I10 ; Vaginitis N76.0 and Hypoxemia R09.02 [facility] [id number] [address] 50909- 4521 May, [facility] [id number] [address] 19609- 6653 Apr, [facility] [address] 56308- 8674 Jan, Urinary tract infection, site unspecified N39.0 and Encounter for immunization Z23 [facility] [address] 42308- 8566 Jan, Allergic rhinitis 477.9 ; Abdominal pain 789.00 and Asthma 493.90 [facility] [id number] [place] [address] 82187- 5103 Dec, [facility] [address] 21858- 2284 Dec, [facility] [address] 80433- 4851 Dec, Scabies 133.0 and Snoring 786.09 [facility] [id number] [address] 76873- 5930 Oct, Scabies 133.0 [facility] [address] 01033- 5868 Oct, [facility] [id number] [address] 97759- 0030 Oct, [facility] [id number] [address] 82907- 9578 August, Vertigo 780.4 ; Anxiety 300.00 ; Rash 782.1 and Abscess 682.9 [facility] [id number] [address] 04462- 8185 August, [facility] [id number] [address] 03320- 6496 14 Aug, 2014 [facility] [id number] [place] [address] 72210- 0459 Aug, [facility] [id number] [address]- 0806 23 Jul, 2014 [facility] [place] [facility] [address] [id number] [place] [address]- 0157 23 Jul, 2014 [facility] [place] [facility] [address] [id number] [place] [address]- 2546 13 Jul, 2014 [facility] [place] [facility] [address] [id number] [place] [address]- 2196 Jul, [facility] [place] [facility] [address] [id number] [place] [address]- 5706 Jun, [facility] [place] [facility] [address] [id number] [place] [address]- 3249 Jun, [facility] [place] [facility] [address] [id number] [place] [address]- 1386 May, [facility] [place] [facility] [address] [id number] [place] [address]- 1860 May, [facility] [place] [facility] [address] [id number] [place] [address]- 4804 Apr, [facility] [place] [facility] [address] [id number] [place] [address]- 8236 Apr, [facility] [place] [facility] [address] [id number] [place] [address]- 3434 Apr, [facility] [place] [facility] [address] [id number] [place] [address]- 2793 Apr, [facility] [place] [facility] [address] [id number] [place] [address]- 9300 Mar, [facility] [place] [facility] [address] [id number] [place] [address]- 4526 Mar, [facility] [place] [facility] [address] [id number] [place] [address]- 2546 Jan, [facility] [place] [facility] [address] [id number] [place] [address]- 5967 Jan, [facility] [place] [facility] [address] [id number] [place] [address]- 8261 Jan, [facility] [place] [facility] [address] [id number] [place] [address]- 3882 Jan, [facility] [place] [facility] [address] [id number] [place] [address]- 8522 Jan, [facility] [place] [facility] [address] [id number] [place] [address]- 8860 Jan, [facility] [place] [facility] [address] [id number] [place] [address]- 5629 Dec, [facility] [place] [facility] [address] [id number] [place] [address]- 6244 Dec, [facility] [place] [facility] [address] [id number] [place] [address]- 2877 Oct, [facility] [place] [facility] [address] [id number] [place] [address]- 8499 Oct, [facility] [place] [facility] [address] [id number] [place] [address]- 2824 Oct, [facility] [place] [facility] [address] [id number] [place] [address]- 1464 Oct, [facility] [place] [facility] [address] [id number] [place] [address]- 9112 Oct, [facility] [place] [facility] [address] [id number] [address]- 1821 Oct, [facility] [place] [facility] [address] [id number] [place] [address]- 8240 Oct, [facility] [place] [facility] [address] [id number] [place] [address]- 1527 Oct, [facility] [place] [facility] [address] [id number] [place] [address]- 4858 Oct, [facility] [place] [facility] [address] [id number] [place] [address]- 4125 August, [facility] [address] [id number] [place] [address]- 1296 August, [facility] [place] [facility] [address] [id number] [place] [address]- 8406 Jun, [facility] [place] [facility] [address] [id number] [place] [address] 2546 Jun, [facility] [place] [facility] [address] [id number] [place] [address] 2546 Jun, [facility] [place] [facility] [address] [id number] [place] [address]- 0046 Jun, [facility] [place] [facility] [address] [id number] [place] [address]- 3423 Jun, [facility] [id number] [place] [address]- 8465 Apr, [facility] [address] [id number] [place] [address]- 2547 Apr, [facility] [place] [facility] [address] [facility] [id number] [place] [address]- 0457 Apr, [facility] [address] [facility] [id number] [place] [address]- 9463 Apr, [facility] [place] [facility] [address] [id number] [place] [address] 2546 Apr, [facility] [place] [facility] [address] [id number] [place] [address] 2546 Apr, [facility] [place] [facility] [address] [id number] [place] [address] 2546 Apr, [facility] [place] [facility] [address] [id number] [place] [address]- 2546 Apr, [facility] [place] [facility] [address] [facility] [id number] [place] [address] 2680 Apr, [facility] [address] [id number] [place] 0512 Apr, [facility] [place] [facility] [address] [id number] [place] 4439 Apr, [facility] [address] [id number] [place] [address]- 2972 Apr, [facility] [place] [facility] [address] [id number] [place] [address]- 2590 Dec, [facility] [address] [id number] [place] 2266 Dec, [facility] [place] [facility] [address] [id number] [place] [address]- 6826 Jul, [facility] [place] [facility] [address] [id number] [place] [address]- 6317 Jun, [facility] [address] [id number] [place] [address]- 7051 Jun, [facility] [address] [id number] [place] [address]- 3662 Oct, [facility] [address] [id number] [place] [address]- 2768 Jul, [facility] [place] [facility] [address] [id number] [place] [address]- 0029 Apr, [facility] [place] [facility] [address] [id number], [place] [address]- 9007 Apr, [facility] [place] [facility] [address] [id number] [place] [address]- 6450 Apr, [facility] [place] [facility] [address] [id number] [place] [address]- 7780 Mar, [facility] [place] [facility] [address] [id number] [place] [address]- 5852 Jan, [facility] [place] [facility] [id number] [address]- 1476 19 Jan, 2011 [facility] [id number] [address]- 1796 Jan, [facility] [id number] [address] 2546 Dec, [facility] [id number] [address]- 9796 Oct, [facility] [address], [place] [address]- 6494 Jan, [facility] [address] [place] [address]- 6733 Oct, [facility] [address], [place] [address]- 6539 Apr, IMMUNIZATIONS No Known Immunizations SOCIAL HISTORY Never Assessed REASON FOR VISIT Requests return call PLAN OF CARE VITAL SIGNS MEDICATIONS Unknown [...] Hospitalization History Suicidal ideation with auditory hallucinations-[facility] Hospitalization History [place] was in [place] for two [place] following her stay 12/[address] [facility] ER 12/13
--- OUTSIDE RECORDS SUMMARY | 2018-01-24 20:08 | XMS REPORT ---
Author Author EDUARDO GRUBER Organization [facility] Address [address] [place] [address] Care Team Providers Care Kiln Hand Name Role Phone EDUARDO GRUBER Unavailable PROBLEMS Type Condition ICD9-CM Code CVP61-OA Code Onset Dates Condition Status SNOMED Code Problem Headache R51 Active 31425446 Problem Irritable bowel syndrome without diarrhea K58.9 Active 98239405 Problem Hypoxemia R09.02 Active 558545909 Problem Mixed hyperlipidemia E78.2 Active 543203402 Problem Asthma 493.90 Active 272568987 Problem Vaginitis N76.0 Active 54143931 Problem Primary insomnia F51.01 Active 8440156 Problem Acquired hypothyroidism E03.9 Active 864962859 Problem Hypertension I10 Active 53571271 Problem Unspecified asthma, uncomplicated J45.909 Active 39558073 Problem Psychosis, unspecified psychosis type F29 Active 91971452 Problem Allergic rhinitis, unspecified allergic rhinitis type J30.9 Active 76710003 ALLERGIES No Information ENCOUNTERS Encounter Location Date Diagnosis [place] [id number] [place] [address] 43393- 5767 Jan, [place] [id number] [place] [address] 41692- 6106 Dec, [place] [address] [address]- 4482 Dec, Bronchitis J40 and Herpes zoster without complication B02.9 [place] [address] 59238- 1252 Oct, Primary insomnia F51.01 [place] [id number] [place] [address] 28448- 1643 Oct, Forgetfulness R68.89 ; Psychosis, unspecified psychosis type F29 ; Acquired hypothyroidism E03.9 ; Mixed hyperlipidemia E78.2 ; Hypertension I10 ; Encounter for immunization Z23 and Breast cancer screening by mammogram Z12.31 [place] [address] 00839- 3470 Aug, Onychomycosis B35.1 [place] [address] 03632- 2322 Aug, Mixed hyperlipidemia E78.2 [place] [address] 20104- 1703 Aug, Scabies B86 ; Allergic rhinitis, unspecified allergic rhinitis type J30.9 ; Primary insomnia F51.01 ; Dysuria R30.0 ; Psychosis, unspecified psychosis type F29 ; Acquired hypothyroidism E03.9 and Hypertension I10 [place] [address] 76860- 2026 May, Hypertension I10 [address] [address]43- 8056 Apr, Unspecified asthma, uncomplicated J45.909 and Hypertension I10 [address] 92789- 2891 Mar, Hypertension I10 [place] [address] 72937- 6894 Mar, Hypertension I10 ; Psychosis, unspecified psychosis type F29 ; Forgetfulness R68.89 and Encounter for immunization Z23 [place] [address] 04011- 3193 Mar, [place] [address] 69397- 5613 Jan, [address] 6[address]15- 1274 Jan, Psychosis, unspecified psychosis type F29 [address] 25247- 4977 Jan, [facility] [id number] [place] [address] [id number] Dec, [facility] [id number] [place] [address] 74456- 6249 Dec, Dizziness R42 [facility] [id number] [place] [address] 79462- 9444 Oct, Hypertension I10 ; Allergic rhinitis, unspecified allergic rhinitis type J30.9 and Flea bite of multiple sites W57.XXXA [facility] [id number] [place] [address] 46009- 4537 August, [facility] [id number] [place] [address] 07513- 6778 August, Hypertension I10 ; Vertigo R42 ; Abdominal pain, acute, right lower quadrant R10.31 and Unspecified asthma, uncomplicated J45.909 [facility] [id number] [place] [address] 22170- 6698 Aug, Right lower quadrant abdominal pain R10.31 ; Irritable bowel syndrome without diarrhea K58.9 and Essential hypertension I10 [facility] [id number] [place] [address] 27933- 9794 Aug, [facility] [id number] [place] [address] 19756- 3217 Jul, [facility] [id number] [place] [address] 22512- 6240 Jul, [facility] [id number] [place] [address] 96606- 6817 Jul, [facility] [id number] [place] [address] 73445- 5396 Jul, [facility] [id number] [place] [address] 50800- 0395 Jun, [facility] [id number] [place] [address] 19328- 1495 Jun, Abdominal pain, acute, right lower quadrant R10.31 [facility] [address] [address]- 1181 Jun, [facility] [id number] [place] [address] 13121- 0921 Jun, [facility] [id number] [place] [address] 80911- 0673 Jun, [facility] [id number] [place] [address] 06896- 5891 Apr, [facility] [id number] [place] [address] 61379- 9662 Apr, Decubitus skin ulcer, stage I L89.91 [facility] [id number] [place] [address] 58386- 8486 Mar, [facility] [id number] [place] [address] 03736 -7226 Mar, Pressure ulcer, stage II L89.92 [facility] [address] [place] [address] 06777- 7524 Jan, Wound cellulitis L03.90 [facility] [id number] [place] [address] 88527- 9988 Jan, [facility] [address] [place] [address] 10057- 3887 Dec, [facility] [id number] [place] [address] 02725- 7490 Oct, Elevated blood pressure I10 and Allergic rhinitis, unspecified allergic rhinitis type J30.9 [facility] [id number] [place] [address] 36813- 8851 August, [facility] [address] [place] [address] 52251- 3367 August, Right lower quadrant abdominal pain R10.31 and Essential hypertension I10 [facility] [id number] [place] [address] 05055- 8997 August, [facility] [address] 12776- 1216 August, [facility] [id number] [place] [address] 60480- 5411 Aug, [facility] [address] 55281- 4282 Aug, Hypertension I10 and Rash R21 [facility] [address] 57579- 3076 Aug, Gastritis K29.70 [facility] [address] 60874- 8542 Aug, [facility] [address] 46411- 1984 Aug, [facility] [id number] [place] [address] 65471- 9467 Aug, [facility] [address] 95258- 7499 Aug, Rash R21 ; Vertigo R42 ; Gastritis K29.70 and Urination pain R30.9 [facility] [id number] [place] [address] 86641- 5802 Jul, [facility] [id number] [place] [address] 07260- 6648 Jul, [facility] [id number] [place] [address] 25898- 4546 Jul, Hypertension I10 [facility] [address] 60062- 7645 Jul, Headache R51 ; Hypertension I10 ; Vaginitis N76.0 and Hypoxemia R09.02 [facility] [id number] [place] [address] 72995- 9439 May, [facility] [id number] [place] [address] 95994- 2557 Apr, [facility] [address] 88093- 8249 Jan, Urinary tract infection, site unspecified N39.0 and Encounter for immunization Z23 [facility] [address] 45877- 8147 Jan, Allergic rhinitis 477.9 ; Abdominal pain 789.00 and Asthma 493.90 [facility] [id number] [place] [address] 48870- 2569 Dec, [facility] [address] 37244- 0090 Dec, [facility] [address] 53403- 0571 Dec, Scabies 133.0 and Snoring 786.09 [facility] [id number] [place] [address] 24946- 0036 Oct, Scabies 133.0 [facility] [address] 37392- 3424 Oct, [facility] [id number] [place] [address] 16403- 2286 Oct, [facility] [id number] [place] [address] 75835- 7140 August, Vertigo 780.4 ; Anxiety 300.00 ; Rash 782.1 and Abscess 682.9 [facility] [id number] [place] [address] 08515- 5478 August, [facility] [id number] [place] [address] 49064- 0444 14 Aug, 2014 [facility] [id number] [place] [address] 39974- 4340 Aug, [facility] [id number] [address]- 8376 23 Jul, 2014 [facility] [place] [facility] [address] [id number] [place] [address]- 2185 23 Jul, 2014 [facility] [place] [facility] [address] [id number] [place] [address]- 2546 13 Jul, 2014 [facility] [place] [facility] [address] [id number] [place] [address]- 0136 Jul, [facility] [place] [facility] [address] [id number] [place] [address]- 3791 Jun, [facility] [place] [facility] [address] [id number] [place] [address]- 0059 Jun, [facility] [place] [facility] [address] [id number] [place] [address]- 3652 May, [facility] [place] [facility] [address] [id number] [place] [address]- 8520 May, [facility] [place] [facility] [address] [id number] [place] [address]- 1240 Apr, [facility] [place] [facility] [address] [id number] [place] [address]- 5771 Apr, [facility] [place] [facility] [address] [id number] [place] [address]- 2346 Apr, [facility] [place] [facility] [address] [id number] [place] [address]- 2967 Apr, [facility] [place] [facility] [address] [id number] [place] [address]- 7237 Mar, [facility] [place] [facility] [address] [id number] [place] [address]- 8076 Mar, [facility] [place] [facility] [address] [id number] [place] [address]- 2546 Jan, [facility] [place] [facility] [address] [id number] [place] [address]- 5585 Jan, [facility] [place] [facility] [address] [id number] [place] [address]- 5570 Jan, [facility] [place] [facility] [address] [id number] [place] [address]- 7836 Jan, [facility] [place] [facility] [address] [id number] [place] [address]- 9982 Jan, [facility] [place] [facility] [address] [id number] [place] [address]- 3949 Jan, [facility] [place] [facility] [address] [id number] [place] [address]- 2782 Dec, [facility] [place] [facility] [address] [id number] [place] [address]- 9113 Dec, [facility] [place] [facility] [address] [id number] [place] [address]- 7675 Oct, [facility] [place] [facility] [address] [id number] [place] [address]- 8867 Oct, [facility] [place] [facility] [address] [id number] [place] [address]- 2868 Oct, [facility] [place] [facility] [address] [id number] [place] [address]- 9673 Oct, [facility] [place] [facility] [address] [id number] [place] [address]- 1917 Oct, [facility] [place] [facility] [address] [id number] [address]- 0411 Oct, [facility] [place] [facility] [address] [id number] [place] [address]- 6415 Oct, [facility] [place] [facility] [address] [id number] [place] [address]- 9868 Oct, [facility] [place] [facility] [address] [id number] [place] [address]- 9732 Oct, [facility] [place] [facility] [address] [id number] [place] [address]- 0980 August, [facility] [address] [id number] [place] [address]- 2426 August, [facility] [place] [facility] [address] [id number] [place] [address]- 7376 Jun, [facility] [place] [facility] [address] [id number] [place] [address] 2546 Jun, [facility] [place] [facility] [address] [id number] [place] [address] 2546 Jun, [facility] [place] [facility] [address] [id number] [place] [address]- 7056 Jun, [facility] [place] [facility] [address] [id number] [place] [address]- 8172 Jun, [facility] [id number] [address]- 4139 Apr, [facility] [address] [id number] [place] [address]- 2544 Apr, [facility] [place] [facility] [address] [facility] [id number] [place] [address]- 4126 Apr, [facility] [address] [facility] [id number] [place] [address]- 1338 Apr, [facility] [place] [facility] [address] [id number] [place] [address] 2546 Apr, [facility] [place] [facility] [address] [id number] [place] [address] 2546 Apr, [facility] [place] [facility] [address] [id number] [place] [address] 2546 Apr, [facility] [place] [facility] [address] [id number] [place] [address]- 2546 Apr, [facility] [place] [facility] [address] [facility] [id number] [place] [address] 5253 Apr, [facility] [address] [id number] [place] 6702 Apr, [facility] [place] [facility] [address] [id number] [place] 4558 Apr, [facility] [address] [id number] [place] [address]- 9918 Apr, [facility] [place] [facility] [address] [id number] [place] [address]- 2039 Dec, [facility] [address] [id number] [place] 9164 Dec, [facility] [place] [facility] [address] [id number] [place] [address]- 4459 Jul, [facility] [place] [facility] [address] [id number] [place] [address]- 1815 Jun, [facility] [address] [id number] [place] [address]- 8314 Jun, [facility] [address] [id number] [place] [address]- 4026 Oct, [facility] [address] [id number] [place] [address]- 2652 Jul, [facility] [place] [facility] [address] [id number] [place] [address]- 2342 Apr, [facility] [place] [facility] [address] [id number] [place] [address]- 5177 Apr, [facility] [place] [facility] [address] [id number] [place] [address]- 0962 Apr, [facility] [place] [facility] [address] [id number] [place] [address]- 2088 Mar, [facility] [place] [facility] [address] [id number] [place] [address]- 9958 Jan, [facility] [place] [facility] [id number] [address]- 2546 Jan, [facility] [id number] [address]- 2546 Jan, [facility] [id number] [address]- 2546 Dec, [facility] [id number] [address]- 2546 Oct, [facility] [address] [address]- 2546 Jan, [facility] [address] [address]- 8276 Oct, [facility] [address] [address]- 3306 Apr, IMMUNIZATIONS No Known Immunizations SOCIAL HISTORY Never Assessed REASON FOR VISIT Medication Update PLAN OF CARE VITAL SIGNS MEDICATIONS Medication Instructions Dosage Frequency Start Date End Date Duration Status Zoloft 50 mg Orally Once a day 1 tablet 24h Aug, Active Trazodone HCl 50 mg Orally Once a day 1 tablet at bedtime 24h Active RESULTS No Results PROCEDURES No Known [...] 01/06/16 Hospitalization History Suicidal ideation with auditory hallucinations-[facility] Hospitalization History PT was in [place] for two weeks following her stay 12/2016 Hospitalization History [facility] ER 12/13
--- OUTSIDE RECORDS SUMMARY | 2018-01-24 20:09 | XMS REPORT ---
Author Author EDUARDO GRUBER Organization [facility] [place] Address [address] [place] [address] Care Team Providers Care It Sales Consultant Name Role Phone EDUARDO GRUBER Unavailable PROBLEMS Type Condition ICD9-CM Code [id number] Code Onset Dates Condition Status SNOMED Code Problem Headache R51 Active 83493256 Problem Irritable bowel syndrome without diarrhea K58.9 Active 01661656 Problem Hypoxemia R09.02 Active 583484093 Problem Mixed hyperlipidemia E78.2 Active 664371701 Problem Asthma 493.90 Active 877705603 Problem Vaginitis N76.0 Active 63498735 Problem Primary insomnia F51.01 Active 0710666 Problem Acquired hypothyroidism E03.9 Active 742972615 Problem Hypertension I10 Active 25590350 Problem Unspecified asthma, uncomplicated J45.909 Active 97467973 Problem Psychosis, unspecified psychosis type F29 Active 71275678 Problem Allergic rhinitis, unspecified allergic rhinitis type J30.9 Active 83974651 ALLERGIES Substance Reaction Event Type Date Status Penicillin V Potassium Unknown Drug Allergy Oct, Active Hydrocodone-Acetaminophen Unknown Drug Allergy Oct, Active Cyclobenzaprine HCl Unknown Drug Allergy Oct, Active Cipro Unknown Drug Allergy Oct, Active Tramadol Unknown Drug Allergy Oct, Active ENCOUNTERS Encounter Location Date Diagnosis [facility] [place] [id number] [address] Dec, [facility] [place] [id number] [address] Dec, Bronchitis J40 and Herpes zoster without complication B02.9 [facility] [place] [id number] [address] Oct, Primary insomnia F51.01 [facility] [place] [id number] [address] Oct, Forgetfulness R68.89 ; Psychosis, unspecified psychosis type F29 ; Acquired hypothyroidism E03.9 ; Mixed hyperlipidemia E78.2 ; Hypertension I10 ; Encounter for immunization Z23 and Breast cancer screening by mammogram Z12.31 [place] [address] [address] Aug, Onychomycosis B35.[address] [address]- [address] Aug, Mixed hyperlipidemia E78.[address] [address] Aug, Scabies B86 ; Allergic rhinitis, unspecified allergic rhinitis type J30.9 ; Primary insomnia F51.01 ; Dysuria R30.0 ; Psychosis, unspecified psychosis type F29 ; Acquired hypothyroidism E03.9 and Hypertension I10 [address] [address] May, Hypertension I10 [place] [address] [address] Apr, Unspecified asthma, uncomplicated J45.909 and Hypertension I10 [place] [address] [address]- [address] Mar, Hypertension I10 [address] [address]- [address] Mar, Hypertension I10 ; Psychosis, unspecified psychosis type F29 ; Forgetfulness R68.89 and Encounter for immunization Z23 [address] [address]- [address] Mar, [place] [address] [address]- [address] Jan, [place] [address] [address]- [address] Jan, Psychosis, unspecified psychosis type F29 [address], [place] [address] Jan, [facility] [id number] [place] [id number] Dec, [facility] [place] [id number] [place] [address]- 4087 Dec, Dizziness R42 [facility] [place] [id number] [place] [address]95- 4781 Oct, Hypertension I10 ; Allergic rhinitis, unspecified allergic rhinitis type J30.9 and Flea bite of multiple sites W57.XXXA [facility] [place] [id number] [place] [address] 01485- 6139 August, [facility] [place] [id number] [place] [address] 51876- 9649 August, Hypertension I10 ; Vertigo R42 ; Abdominal pain, acute, right lower quadrant R10.31 and Unspecified asthma, uncomplicated J45.909 [facility] [place] [address] [place] [address] 37843- 9353 Aug, Right lower quadrant abdominal pain R10.31 ; Irritable bowel syndrome without diarrhea K58.9 and Essential hypertension I10 [facility] [place] [id number] [place] [address] 47812- 7617 Aug, [facility] [place] [id number] [place] [address] 41881- 1631 Jul, [facility] [place] [id number] [place] [address] 71546- 2508 Jul, [facility] [place] [id number] [place] [address] 50636- 2764 Jul, [facility] [place] [id number] [place] [address] 62054- 8233 Jul, [facility] [place] [address] [place] [address] 33455- 8431 Jun, [facility] [place] [address] [place] [address] 22365- 9320 27 Jun, 2016 Abdominal pain, acute, right lower quadrant R10.31 [facility] [place] [id number] [place] [address] 09974- 4287 19 Jun, 2016 [facility] [place] [id number] [place] [address] 41166- 3494 16 Jun, 2016 [facility] [place] [id number] [place] [address] 88421- 9788 15 Jun, 2016 [facility] [place] [id number] [place] [address] 65565- 6056 Apr, [facility] [place] [id number] [place] [address] 73160- 7380 Apr, Decubitus skin ulcer, stage I L89.91 [facility] [place] [id number] [place] [address] 33626- 2266 Mar, [facility] [address] [place] [address]05 -3220 Mar, Pressure ulcer, stage II L89.92 [facility] [place] [id number] [place] [address] 19644- 1274 Jan, Wound cellulitis L03.90 [facility] [place] [address] [place] [address] 30289- 0755 Jan, [facility] [place] [id number] [place] [address] 56971- 6503 Dec, [facility] [place] [id number] [place] [address] 79071- 8019 Oct, Elevated blood pressure I10 and Allergic rhinitis, unspecified allergic rhinitis type J30.9 [facility] [place] [address] [place] [address] 55934- 0508 August, [facility] [place] [id number] [place] [address] 59349- 9043 August, Right lower quadrant abdominal pain R10.31 and Essential hypertension I10 [place] [address] 16589- 8143 August, [facility] [place] [address] [address]- 26[address] August, [facility] [place] [address] [address]- 9109 Aug, [facility] [place] [address] [address]95- 7249 Aug, Hypertension I10 and Rash R21 [place] [address] [address]48- 7023 Aug, Gastritis K29.70 [place] [address] 89815- 3078 Aug, [place] [address] 85447- 9680 Aug, [facility] [place] [address] 27987- 4445 Aug, [place] [address] 51061- 8878 Aug, Rash R21 ; Vertigo R42 ; Gastritis K29.70 and Urination pain R30.9 [place] [address] 66743- 9358 Jul, [facility] [place] [address] 6[address]- 0000 Jul, [place] [address] [address]70- 5225 Jul, Hypertension I10 [place] [address] 94180- 6223 07 Jul, 2015 Headache R51 ; Hypertension I10 ; Vaginitis N76.0 and Hypoxemia R09.02 [place] [address] [address]- [address] May, [facility] [place] [id number] [place] [address] 70912- 9274 Apr, [facility] [place] [id number] [place] [address] 94541- 0509 Jan, Urinary tract infection, site unspecified N39.0 and Encounter for immunization Z23 [facility] [place] [address] 80244- 0158 Jan, Allergic rhinitis 477.9 ; Abdominal pain 789.00 and Asthma 493.90 [facility] [place] [id number] [place] [address] 18171- 0593 Dec, [facility] [place] [id number] [place] [address] 07814- 7927 Dec, [facility] [place] [id number] [place] [address] 26853- 3001 Dec, Scabies 133.0 and Snoring 786.09 [facility] [place] [id number] [place] [address] 51820- 9906 Oct, Scabies 133.0 [facility] [place] [id number] [place] [address] 34428- 2564 Oct, [facility] [place] [id number] [place] [address] 51503- 6073 Oct, [facility] [place] [id number] [place] [address] 23262- 0876 August, Vertigo 780.4 ; Anxiety 300.00 ; Rash 782.1 and Abscess 682.9 [facility] [place] [id number] [place] [address] 61804- 1382 August, [facility] [place] [id number] [place] [address] 21155- 7524 Aug, [facility] [place] [address] [place] [address]- 2695 13 Aug, 2014 [facility] [place] [facility] [address] [id number] [place] [address]- 2981 Jul, [facility] [place] [facility] [address] [id number] [place] [address]- 8616 23 Jul, 2014 [facility] [place] [facility] [address] [id number] [place] [address]- 7874 Jul, [facility] [place] [facility] [address] [id number] [place] [address]- 2543 Jul, [facility] [place] [facility] [address] [id number] [place] [address]- 0901 Jun, [facility] [place] [facility] [address] [id number] [place] [address]- 3736 Jun, [facility] [place] [facility] [address] [id number] [place] [address]- 6135 May, [facility] [place] [facility] [address] [id number] [place] [address]- 4075 May, [facility] [place] [facility] [address] [id number] [place] [address]- 6095 Apr, [facility] [place] [facility] [address] [id number] [place] [address]- 4470 Apr, [facility] [place] [facility] [address] [id number] [place] [address]- 6045 Apr, [facility] [place] [facility] [address] [id number] [place] [address]- 2544 Apr, [facility] [place] [facility] [address] [id number] [place] [address]- 1768 Mar, [facility] [place] [facility] [address] [id number] [place] [address]- 2546 Mar, [facility] [place] [facility] [address] [id number] [place] [address]- 3070 Jan, [facility] [place] [facility] [address] [id number] [place] [address]- 1590 Jan, [facility] [place] [facility] [address] [id number] [place] [address]- 0187 Jan, [facility] [place] [facility] [address] [id number] [place] [address]- 5466 Jan, [facility] [place] [facility] [address] [id number] [place] [address]- 5706 Jan, [facility] [place] [facility] [address] [id number] [place] [address]- 3252 Jan, [facility] [place] [facility] [address] [id number] [place] [address]- 7400 Dec, [facility] [place] [facility] [address] [id number] [place] [address]- 5330 Dec, [facility] [place] [facility] [address] [id number] [place] [address]- 8875 Oct, [facility] [place] [facility] [address] [id number] [place] [address]- 2756 Oct, [facility] [place] [facility] [address] [id number] [place] [address]- 4113 Oct, [facility] [place] [facility] [address] [id number] [place] [address]- 4966 Oct, [facility] [place] [facility] [address] [id number] [address]- 0000 Oct, [facility] [place] [facility] [address] [id number] [place] [address]- 2883 Oct, [facility] [place] [facility] [address] [id number] [place] [address]- 8740 Oct, [facility] [place] [facility] [address] [id number] [place] [address]- 5053 Oct, [facility] [place] [facility] [address] [id number] [place] [address]- 1578 Oct, [facility] [address] [id number] [place] [address]- 5706 August, [facility] [place] [facility] [address] [id number] [place] [address]- 4346 August, [facility] [place] [facility] [address] [id number] [place] [address]- 5026 Jun, [facility] [place] [facility] [address] [id number] [place] [address]- 4180 Jun, [facility] [place] [facility] [address] [id number] [place] [address]- 9620 Jun, [facility] [place] [facility] [address] [id number] [place] [address]- 3172 Jun, [facility] [address] [id number] [place] [address]- 9981 Jun, [facility] [place] [facility] [address] [id number] [place] [address]- 1520 Apr, [facility] [place] [facility] [address] [id number] [place] [address]- 8544 Apr, [facility] [place] [facility] [address] [facility] [id number] [place] [address]- 4669 Apr, [facility] [place] [facility] [address] [id number] [place] [address] 2546 Apr, [facility] [place] [facility] [address] [id number] [place] [address]- 2543 Apr, [facility] [place] [facility] [address] [id number] [place] [address] 2548 Apr, [facility] [place] [facility] [address] [facility] [id number] [place] [address]- 2544 Apr, [facility] [place] [facility] [address] [id number] [place] [address] 2548 Apr, [facility] [place] [facility] [address] [id number] [place] [address]- 6330 Apr, [facility] [address] [id number] [place] [address]- 2938 Apr, [facility] [address] [id number] [place] [address]- 1135 Apr, [facility] [address] [id number] [place] [address]- 1950 Apr, [facility] [address] [id number] [place] [address]- 7458 Dec, [facility] [address] [id number] [place] [address]- 8667 Dec, [facility] [address] [id number] [place] [address]- 1917 Jul, [facility] [address] [id number] [place] [address]- 3404 Jun, [facility] [address] [id number] [place] [address]- 3716 Jun, [facility] [address] [id number] [place] [address]- 3558 Oct, [facility] [address] [id number] [place] [address]- 1057 Jul, [facility] [address] [id number] [place] [address]- 6419 Apr, [facility] [place] [facility] [address] [id number] [place] [address]- 2129 Apr, [facility] [place] [facility] [address] [id number] [place] [address]- 1686 Apr, [facility] [address] [id number] [place] [address]- 2677 Mar, [facility] [address] [id number] [address]- 2546 Jan, [facility] [place] [id number] [address] 2546 Jan, [facility] [place] [address] [address]- 2546 Jan, [facility] [place] [address] [address]- 2546 Dec, [facility] [place] [address] [address]- 2546 Oct, [facility] [place] [address] [address]- 8596 Jan, [place] [address] [address] 2546 Oct, [place] [id number] [address]- 6806 Apr, IMMUNIZATIONS Vaccine Route Administration Date Status TDAP (BOOSTRIX) IM Intramuscular October 11, 2017 Administered SOCIAL HISTORY Never Assessed REASON FOR VISIT requesting referral, PT states she doesnt know of any referal but is just here for her 3 month check up-Slim DUGGAN PLAN OF CARE Activity Details Follow Up 3 Months Reason:BP VITAL SIGNS Height 62 in 2017-10-11 Weight 190.7 lbs 2017-10-11 Temperature 98.3 degrees Fahrenheit 2017-10-11 Heart Rate 74 bpm 2017-10-11 Respiratory Rate 20 2017-10-11 BMI 34.88 kg/m2 2017-10-11 Blood pressure systolic 144 mmHg 2017-10-11 Blood pressure diastolic 86 mmHg 2017-10-11 MEDICATIONS Medication Instructions Dosage Frequency Start Date End Date Duration Status Trazodone HCl 50 mg Orally Once a day 1 tablet at bedtime 24h 90 days Active Flonase 50 MCG/ACT Nasally twice a day 1 spray in each nostril 12h 20 Mar, 2017 30 day(s) Active Omeprazole 40 MG Orally Once a day 1 capsule 24h August, 90 days Active Cetirizine HCl 10 mg Orally Once a day 1 tablet 24h 21 Oct, 2016 90 Active Synthroid 50 MCG Orally Once a day 1 tablet on an empty stomach in the morning 24h Active Zoloft 50 mg Orally Once a day 1 tablet 24h 12 Aug, 2016 Active Bentyl 20 mg Orally 2 times a day 1 tablet 12h 90 Active Lovastatin 40 mg Orally Once a day 1 tablet with a meal 24h 17 Aug, 2017 30 day(s) Not-Taking ProAir HFA Inhalation every 6 hrs 2 puffs as needed 6h Active Montelukast Sodium 10 MG TAKE 1 TABLET BY MOUTH IN THE EVENING 90 Active Propranolol HCl 40 MG Orally Twice a day 1 tablet 12h 15 Jun, 2016 90 days Active RESULTS Name Result Date Reference Range Mammogram, Bilateral Screening 2017-10-27 PROCEDURES Procedure Date Ordered Result Body Site TDAP (BOOSTRIX) October 11, 2017 SINGLE IMMUNIZATION ADMIN October 11, 2017 INSTRUCTIONS MEDICATIONS ADMINISTERED No Known Medications [...] 01/06/16 Hospitalization History Suicidal ideation with auditory hallucinations-[facility] Hospitalization History PT was in [place] for two weeks following her stay 12/2016 Hospitalization History [facility] ER 12/13
--- OUTSIDE RECORDS SUMMARY | 2018-01-24 20:18 | XMS REPORT | Continuity of Care Document ---
Author Author [facility] Address Unknown Phone Unavailable Allergies Active [...] Drug Allergy N/A N/A 06/20/2013 Yes Penicillins [id number] Drug Allergy Unknown N/A 08/20/2015 Yes tuberculin, purified protein deriva [id number] Drug Allergy Mild N/A 2015 Yes tuberculin,purif.prot.deriv. [id number] Drug Allergy Mild N/A 08/20/2015 Medications There [...] SARABIA APRN A 784.0 HEADACHE 05/01/2008 [facility] ASS[employer] [employer], EDUARDO S 784.0 HEADACHE 05/01/2008 [facility] ASSOCIATE DIRECT[employer] CAREER SERVICES, EDUARDO S 784.0 HEADACHE 05/01/2008 [facility] ASSOCIATE DIRECTOR CAREER SERVICES, EDUARDO S 784.0 HEADACHE 05/01/2008 [facility] ASSOCIATE DIRECTOR CAREER SERVICES, EDUARDO S 784.0 HEADACHE 05/01/2008 [facility] ASSOCIATE DIRECTOR CAREER SERVICES, EDUARDO S 784.0 HEADACHE 06/11/2008 719.47 Pain [...] Other Specified Diseases Of Nail 06/22/2008 [facility] ASS[employer]ATE [employer] SERVICES, EDUARDO S 110.1 Onychomycosis 06/22/2008 [facility] ASSOCIATE DIRECT[employer] CAREER SERVICES, EDUARDO S 703.8 Other Specified Diseases Of Nail 06/22/2008 [facility] ASSOCIATE DIRECTOR CAREER SERVICES, EDUARDO S 110.1 Onychomycosis 06/22/2008 [facility] ASSOCIATE DIRECTOR CAREER SERVICES, EDUARDO S 703.8 Other Specified Diseases Of Nail 06/22/2008 [facility] ASSOCIATE DIRECTOR CAREER SERVICES, EDUARDO S 110.1 Onychomycosis 06/22/2008 [facility] ASSOCIATE DIRECTOR CAREER SERVICES, EDUARDO S 703.8 Other Specified Diseases Of Nail 06/22/2008 NO ASSOCIATE DIRECTOR CAREER SERVICES, BENTLEY A 110.1 Onychomycosis 06/22/2008 NO ASSOCIATE DIRECTOR CAREER SERVICES, BENTLEY A 703.8 Other Specified Diseases Of Nail 06/22/2008 [facility] ASSOCIATE DIRECTOR CAREER SERVICES, EDUARDO S 110.1 Onychomycosis 06/22/2008 [facility] ASSOCIATE DIRECTOR CAREER SERVICES, EDUARDO S 703.8 Other Specified Diseases Of Nail 06/22/2008 [facility] ASSOCIATE DIRECTOR CAREER SERVICES, EDUARDO S 110.1 Onychomycosis 06/22/2008 [facility] ASSOCIATE DIRECTOR CAREER SERVICES, EDUARDO S 703.8 Other Specified Diseases Of Nail 06/22/2008 [facility] ASSOCIATE DIRECTOR CAREER SERVICES, EDUARDO S 110.1 Onychomycosis 06/22/2008 [facility] ASSOCIATE DIRECTOR CAREER SERVICES, EDUARDO S 703.8 Other Specified Diseases Of Nail 06/22/2008 [facility] ASSOCIATE DIRECTOR CAREER SERVICES, EDUARDO S 110.1 Onychomycosis 06/22/2008 [facility] ASSOCIATE DIRECTOR CAREER SERVICES, EDUARDO S 703.8 Other Specified Diseases Of Nail 06/22/2008 [facility] ASSOCIATE DIRECTOR CAREER SERVICES, EDUARDO S 110.1 Onychomycosis 06/22/2008 [facility] ASSOCIATE DIRECTOR CAREER SERVICES, EDUARDO S 703.8 Other Specified Diseases Of Nail 09/28/2008 110.4 Tinea Pedis 09/28/2008 703.0 Nail Ingrown 09/28/2008 110.4 Tinea Pedis 09/28/2008 703.0 Nail Ingrown 09/28/2008 CHRISS MENDEZ MD 110.4 Tinea Pedis 09/28/2008 CHRISS MENDEZ MD 703.0 Nail Ingrown 09/28/2008 RUIZ DO, ELVIA K 110.4 Tinea Pedis 09/28/2008 RUIZ DO, ELVIA K 703.0 Nail Ingrown 09/28/2008 [facility] ASSOCIATE DIRECT[employer] CAREER SERVICES, EDUARDO S 110.4 Tinea Pedis 09/28/2008 [facility] ASSOCIATE DIRECTOR CAREER SERVICES, EDUARDO S 703.0 Nail Ingrown 09/28/2008 [facility] ASSOCIATE DIRECTOR CAREER SERVICES, EDUARDO S 110.4 Tinea Pedis 09/28/2008 [facility] ASSOCIATE DIRECTOR CAREER SERVICES, EDUARDO S 703.0 Nail Ingrown 09/28/2008 [facility] ASSOCIATE DIRECTOR CAREER SERVICES, EDUARDO S 110.4 Tinea Pedis 09/28/2008 [facility] ASSOCIATE DIRECTOR CAREER SERVICES, EDUARDO S 703.0 Nail Ingrown 09/28/2008 NO ASSOCIATE DIRECTOR CAREER SERVICES, BENTLEY A 110.4 Tinea Pedis 09/28/2008 NO ASSOCIATE DIRECTOR CAREER SERVICES, BENTLEY A 703.0 Nail Ingrown 09/28/2008 [facility] ASSOCIATE DIRECTOR CAREER SERVICES, EDUARDO S 110.4 Tinea Pedis 09/28/2008 [facility] ASSOCIATE DIRECTOR CAREER SERVICES, EDUARDO S 703.0 Nail Ingrown 09/28/2008 [facility] ASSOCIATE DIRECTOR CAREER SERVICES, EDUARDO S 110.4 Tinea Pedis 09/28/2008 [facility] ASSOCIATE DIRECTOR CAREER SERVICES, EDUARDO S 703.0 Nail Ingrown 09/28/2008 [facility] ASSOCIATE DIRECTOR CAREER SERVICES, EDUARDO S 110.4 Tinea Pedis 09/28/2008 [facility] ASSOCIATE DIRECTOR CAREER SERVICES, EDUARDO S 703.0 Nail Ingrown 09/28/2008 [facility] ASSOCIATE DIRECTOR CAREER SERVICES, EDUARDO S 110.4 Tinea Pedis 09/28/2008 [facility] ASSOCIATE DIRECTOR CAREER SERVICES, EDUARDO S 703.0 Nail Ingrown 09/28/2008 [facility] ASSOCIATE DIRECTOR CAREER SERVICES, EDUARDO S 110.4 Tinea Pedis 09/28/2008 [facility] ASSOCIATE DIRECTOR CAREER SERVICES, EDUARDO S 703.0 Nail Ingrown 10/15/2008 465.9 Acute Upper Respiratory Infections Of Unspecified Site 10/15/2008 465.9 Acute Upper Respiratory Infections Of Unspecified Site 10/15/2008 CHRISS MENDEZ MD 465.9 Acute Upper Respiratory Infections Of Unspecified Site 10/15/2008 RUIZ DO, ELVIA K 465.9 Acute Upper Respiratory Infections Of Unspecified Site 10/15/2008 [facility] ASSOCIATE DIRECTOR CAREER SERVICES, EDUARDO S 465.9 Acute Upper Respiratory Infections Of Unspecified Site 10/15/2008 [facility] ASSOCIATE DIRECTOR CAREER SERVICES, EDUARDO S 465.9 Acute Upper Respiratory Infections Of Unspecified Site 10/15/2008 [facility] ASSOCIATE DIRECTOR CAREER SERVICES, EDUARDO S 465.9 Acute Upper Respiratory Infections Of Unspecified Site 10/15/2008 NO ASSOCIATE DIRECTOR CAREER SERVICES, BENTLEY A 465.9 Acute Upper Respiratory Infections Of Unspecified Site 10/15/2008 [facility] ASSOCIATE DIRECTOR CAREER SERVICES, EDUARDO S 465.9 Acute Upper Respiratory Infections Of Unspecified Site 10/15/2008 ALLYN ASSOCIATE DIRECTOR CAREER SERVICES, EDUARDO S 465.9 Acute Upper Respiratory Infections Of Unspecified Site 10/15/2008 ALLYN ASSOCIATE DIRECTOR CAREER SERVICES, EDUARDO S 465.9 Acute Upper Respiratory Infections Of Unspecified Site 10/15/2008 ALLYN ASSOCIATE DIRECTOR CAREER SERVICES, EDUARDO S 465.9 Acute Upper Respiratory Infections Of Unspecified Site 10/15/2008 [facility] ASSOCIATE DIRECTOR CAREER SERVICES, EDUARDO S 465.9 Acute Upper Respiratory Infections Of Unspecified Site 05/28/2009 511.0 Pleurisy, Without Mention Of Effusion Or Current Tuberculosis 05/28/2009 511.0 Pleurisy, Without Mention Of Effusion Or Current Tuberculosis 05/28/2009 CHRISS MENDEZ MD 511.0 Pleurisy, Without Mention Of Effusion Or Current Tuberculosis 05/28/2009 SARA ABRAHAM, ELVIA K 511.0 Pleurisy, Without Mention Of Effusion Or Current Tuberculosis 05/28/2009 [facility] ASSOCIATE DIRECTOR CAREER SERVICES, EDUARDO S 511.0 Pleurisy, Without Mention Of Effusion Or Current Tuberculosis 05/28/2009 [facility] ASSOCIATE DIRECTOR CAREER SERVICES, EDUARDO S 511.0 Pleurisy, Without Mention Of Effusion Or Current Tuberculosis 05/28/2009 [facility] ASSOCIATE DIRECTOR CAREER SERVICES, EDUARDO S 511.0 Pleurisy, Without Mention Of Effusion Or Current Tuberculosis 05/28/2009 NO ASSOCIATE DIRECTOR CAREER SERVICES, BENTLEY A 511.0 Pleurisy, Without Mention Of Effusion Or Current Tuberculosis 05/28/2009 [facility] ASSOCIATE DIRECTOR CAREER SERVICES, EDUARDO S 511.0 Pleurisy, Without Mention Of Effusion Or Current Tuberculosis 05/28/2009 [facility] ASSOCIATE DIRECTOR CAREER SERVICES, EDUARDO S 511.0 Pleurisy, Without Mention Of Effusion Or Current Tuberculosis 05/28/2009 ALL[facility] ASSOCIATE DIRECTOR CAREER SERVICES, EDUARDO S 511.0 Pleurisy, Without Mention Of Effusion Or Current Tuberculosis 05/28/2009 [facility] ASSOCIATE DIRECTOR CAREER SERVICES, EDUARDO S 511.0 Pleurisy, Without Mention Of Effusion Or Current Tuberculosis 05/28/2009 [facility] ASSOCIATE DIRECTOR CAREER SERVICES, EDUARDO S 511.0 Pleurisy, Without Mention Of Effusion Or Current Tuberculosis 07/24/2009 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 CHRISS MENDEZ MD 733.6 Tietze's Disease 07/24/2009 ELVIA RUIZ DO 733.6 Tietze's Disease 07/24/2009 [facility] ASSOCIATE DIRECTOR CAREER SERVICES, EDUARDO S 733.6 Tietze's Disease 07/24/2009 [facility] ASSOCIATE DIRECTOR CAREER SERVICES, EDUARDO S 733.6 Tietze's Disease 07/24/2009 [facility] ASSOCIATE DIRECTOR CAREER SERVICES, EDUARDO S 733.6 Tietze's Disease 07/24/2009 NO ASSOCIATE DIRECTOR CAREER SERVICES, BENTLEY A 733.6 Tietze's Disease 07/24/2009 [facility] ASSOCIATE DIRECTOR CAREER SERVICES, EDUARDO S 733.6 Tietze's Disease 07/24/2009 [facility] ASSOCIATE DIRECTOR CAREER SERVICES, EDUARDO S 733.6 Tietze's Disease 07/24/2009 [facility]YN ASSOCIATE DIRECTOR CAREER SERVICES, EDUARDO S 733.6 Tietze's Disease 07/24/2009 [facility] ASSOCIATE DIRECTOR CAREER SERVICES, EDUARDO S 733.6 Tietze's Disease 07/24/2009 [facility] ASSOCIATE DIRECTOR CAREER SERVICES, EDUARDO S 733.6 Tietze's Disease 07/31/2009 053.9 Herpes Zoster , Without Mention Of Complication 07/31/2009 053.9 Herpes Zoster , Without Mention Of Complication 07/31/2009 CHRISS MENDEZ MD 053.9 Herpes Zoster, Without Mention Of Complication 07/31/2009 ELVIA RUIZ DO 053.9 Herpes Zoster, Without Mention Of Complication 07/31/2009 [facility] ASSOCIATE DIRECTOR CAREER SERVICES, EDUARDO S 053.9 Herpes Zoster, Without Mention Of Complication 07/31/2009 [facility] ASSOCIATE DIRECTOR CAREER SERVICES, EDUARDO S 053.9 Herpes Zoster, Without Mention Of Complication 07/31/2009 [facility] ASSOCIATE DIRECTOR CAREER SERVICES, EDUARDO S 053.9 Herpes Zoster, Without Mention Of Complication 07/31/2009 NO ASSOCIATE DIRECTOR CAREER SERVICES, BENTLEY A 053.9 Herpes Zoster, Without Mention Of Complication 07/31/2009 [facility] ASSOCIATE DIRECTOR CAREER SERVICES, EDUARDO S 053.9 Herpes Zoster, Without Mention Of Complication 07/31/2009 [facility] ASSOCIATE DIRECTOR CAREER SERVICES, EDUARDO S 053.9 Herpes Zoster, Without Mention Of Complication 07/31/2009 [facility] ASSOCIATE DIRECTOR CAREER SERVICES, EDUARDO S 053.9 Herpes Zoster, Without Mention Of Complication 07/31/2009 [facility] ASSOCIATE DIRECTOR CAREER SERVICES, EDUARDO S 053.9 Herpes Zoster, Without Mention Of Complication 07/31/2009 [facility] ASSOCIATE DIRECTOR CAREER SERVICES, EDUARDO S 053.9 Herpes Zoster, Without Mention Of Complication 10/29/2009 300.00 Anxiety State , Unspecified 10/29/2009 300.00 Anxiety State , Unspecified 10/29/2009 CHRISS MENDEZ MD 300.00 Anxiety State, Unspecified 10/29/2009 ELVIA RUIZ DO 300.00 Anxiety State, Unspecified 10/29/2009 [facility] ASSOCIATE DIRECTOR CAREER SERVICES, EDUARDO S 300.00 Anxiety State, Unspecified 10/29/2009 [facility] ASSOCIATE DIRECTOR CAREER SERVICES, EDUARDO S 300.00 Anxiety State, Unspecified 10/29/2009 [facility] ASSOCIATE DIRECTOR CAREER SERVICES, EDUARDO S 300.00 Anxiety State, Unspecified 10/29/2009 NO ASSOCIATE DIRECTOR CAREER SERVICES, BENTLEY A 300.00 Anxiety State, Unspecified 10/29/2009 [facility] ASSOCIATE DIRECTOR CAREER SERVICES, EDUARDO S 300.00 Anxiety State, Unspecified 10/29/2009 [facility] ASSOCIATE DIRECTOR CAREER SERVICES, EDUARDO S 300.00 Anxiety State, Unspecified 10/29/2009 [facility] ASSOCIATE DIRECTOR CAREER SERVICES, EDUARDO S 300.00 Anxiety State, Unspecified 10/29/2009 [facility] ASSOCIATE DIRECTOR CAREER SERVICES, EDUARDO S 300.00 Anxiety State, Unspecified 10/29/2009 [facility] ASSOCIATE DIRECTOR CAREER SERVICES, EDUARDO S 300.00 Anxiety State, Unspecified 11/13/2009 [...] Without Mention Of Status Migrainosus 11/13/2009 [facility] ASSOCIATE [employer] C[employer] SERVICES, EDUARDO S 346.00 Migraine With Aura, Without Mention Of Intractable Migraine Without Mention Of Status Migrainosus 11/13/2009 [facility] ASSOCIATE DIRECT[employer] CAREER SERVICES, EDUARDO S 346.00 Migraine With Aura, Without Mention Of Intractable Migraine Without Mention Of Status Migrainosus 11/13/2009 [facility] ASSOCIATE DIRECTOR CAREER SERVICES, EDUARDO S 346.00 Migraine With Aura, Without Mention Of Intractable Migraine Without Mention Of Status Migrainosus 11/13/2009 NO ASSOCIATE DIRECTOR CAREER SERVICES, BENTLEY A 346.00 Migraine With Aura, Without Mention Of Intractable Migraine Without Mention Of Status Migrainosus 11/13/2009 [facility] ASSOCIATE DIRECTOR CAREER SERVICES, EDUARDO S 346.00 Migraine With Aura, Without Mention Of Intractable Migraine Without Mention Of Status Migrainosus 11/13/2009 [facility] ASSOCIATE DIRECTOR CAREER SERVICES, EDUARDO S 346.00 Migraine With Aura, Without Mention Of Intractable Migraine Without Mention Of Status Migrainosus 11/13/2009 [facility] ASSOCIATE DIRECTOR CAREER SERVICES, EDUARDO S 346.00 Migraine With Aura, Without Mention Of Intractable Migraine Without Mention Of Status Migrainosus 11/13/2009 [facility] ASSOCIATE DIRECTOR CAREER SERVICES, EDUARDO S 346.00 Migraine With Aura, Without Mention Of Intractable Migraine Without Mention Of Status Migrainosus 11/13/2009 [facility] ASSOCIATE DIRECT[employer] CAREER SERVICES, EDUARDO S 346.00 Migraine With Aura, Without Mention Of Intractable Migraine Without Mention Of Status Migrainosus 02/04/2010 682.7 Cellulitis And Abscess Of Foot Except Toes 02/04/2010 682.7 Cellulitis And Abscess Of Foot Except Toes 02/04/2010 CHRISS MENDEZ MD 682.7 Cellulitis And Abscess Of Foot Except Toes 02/04/2010 ELVIA RUIZ DO 682.7 Cellulitis And Abscess Of Foot Except Toes 02/04/2010 [facility] ASSOCIATE [employer] CAREER SERVICES, EDUARDO S 682.7 Cellulitis And Abscess Of Foot Except Toes 02/04/2010 [facility]YN ASSOCIATE DIRECTOR CAREER SERVICES, EDUARDO S 682.7 Cellulitis And Abscess Of Foot Except Toes 02/04/2010 [facility] ASSOCIATE DIRECTOR CAREER SERVICES, EDUARDO S 682.7 Cellulitis And Abscess Of Foot Except Toes 02/04/2010 NO ASSOCIATE DIRECTOR CAREER SERVICES, BENTLEY A 682.7 Cellulitis And Abscess Of Foot Except Toes 02/04/2010 [facility] ASSOCIATE DIRECTOR CAREER SERVICES, EDUARDO S 682.7 Cellulitis And Abscess Of Foot Except Toes 02/04/2010 [facility]YN ASSOCIATE DIRECTOR CAREER SERVICES, EDUARDO S 682.7 Cellulitis And Abscess Of Foot Except Toes 02/04/2010 [facility] ASSOCIATE DIRECTOR CAREER SERVICES, EDUARDO S 682.7 Cellulitis And Abscess Of Foot Except Toes 02/04/2010 [employer]YN ASSOCIATE DIRECTOR CAREER SERVICES, EDUARDO S 682.7 Cellulitis And Abscess Of Foot Except Toes 02/04/2010 [facility] ASSOCIATE DIRECTOR CAREER SERVICES, EDUARDO S 682.7 Cellulitis And Abscess Of [...] V17.49 FAM HX ASCVD (DISEASE) 12/16/2010 ALLYN ASSOCIATE DIRECTOR CAREER SERVICESJONEDUARDO S 724.5 Back Pain, General 12/16/2010 JON GRUBER APRNNDA S V17.49 FAM HX ASCVD (DISEASE) 12/16/2010 [facility] ASSOCIATE DIRECT[employer] CAREER SERVICES, EDUARDO S 724.5 Back Pain, General 12/16/2010 [facility] ASSOCIATE DIRECTOR CAREER SERVICES, EDUARDO S V17.49 FAM HX ASCVD (DISEASE) 12/16/2010 [employer] ASSOCIATE DIRECTOR CAREER SERVICES, EDUARDO S 724.5 Back Pain, General 12/16/2010 [facility] ASSOCIATE DIRECTOR CAREER SERVICES, EDUARDO S V17.49 FAM HX ASCVD (DISEASE) 12/16/2010 NO ASSOCIATE DIRECTOR CAREER SERVICES, BENTLEY A 724.5 Back Pain, General 12/16/2010 NO ASSOCIATE DIRECTOR CAREER SERVICES, BENTLEY A V17.49 FAM HX ASCVD (DISEASE) 12/16/2010 [facility] ASSOCIATE DIRECTOR CAREER SERVICES, EDUARDO S 724.5 Back Pain, General 12/16/2010 [facility]YN ASSOCIATE DIRECTOR CAREER SERVICES, EDUARDO S V17.49 FAM HX ASCVD (DISEASE) 12/16/2010 [employer]YN ASSOCIATE DIRECTOR CAREER SERVICES, EDUARDO S 724.5 Back Pain, General 12/16/2010 ALLYN ASSOCIATE DIRECTOR CAREER SERVICES, EDUARDO S V17.49 FAM HX ASCVD (DISEASE) 12/16/2010 [facility]YN ASSOCIATE DIRECTOR CAREER SERVICES, EDUARDO S 724.5 Back Pain, General 12/16/2010 ALLYN ASSOCIATE DIRECTOR CAREER SERVICES, EDUARDO S V17.49 FAM HX ASCVD (DISEASE) 12/16/2010 [employer]YN ASSOCIATE DIRECTOR CAREER SERVICES, EDUARDO S 724.5 Back Pain, General 12/16/2010 ALLYN ASSOCIATE DIRECTOR CAREER SERVICES, EDUARDO S V17.49 FAM HX ASCVD (DISEASE) 12/16/2010 [facility]YN ASSOCIATE DIRECTOR CAREER SERVICES, EDUARDO S 724.5 Back Pain, General 12/16/2010 [facility]YN ASSOCIATE DIRECTOR CAREER SERVICES, EDUARDO S V17.49 FAM HX ASCVD (DISEASE) 01/13/2011 381.81 DYSFUNCTION OF EUSTACHIAN TUBE 01/13/2011 381.81 DYSFUNCTION OF EUSTACHIAN TUBE 01/13/2011 CHRISS MENDEZ MD 381.81 DYSFUNCTION OF EUSTACHIAN TUBE 01/13/2011 ELVIA RUIZ DO 381.81 DYSFUNCTION OF EUSTACHIAN TUBE 01/13/2011 [employer]YN ASSOCIATE DIRECTOR CAREER SERVICES, EDUARDO S 381.81 DYSFUNCTION OF EUSTACHIAN TUBE 01/13/2011 ALLYN ASSOCIATE DIRECTOR CAREER SERVICES EDUARDO S 381.81 DYSFUNCTION OF EUSTACHIAN TUBE 01/13/2011 ALLYN ASSOCIATE DIRECTOR CAREER SERVICES, EDUARDO S 381.81 DYSFUNCTION OF EUSTACHIAN TUBE 01/13/2011 BENTLEY SARABIA APRN A 381.81 DYSFUNCTION OF EUSTACHIAN TUBE 01/13/2011 [employer]YN ASSOCIATE DIRECTOR CAREER SERVICES, EDUARDO S 381.81 DYSFUNCTION OF EUSTACHIAN TUBE 01/13/2011 ALLYN ASSOCIATE DIRECTOR CAREER SERVICES, EDUARDO S 381.81 DYSFUNCTION OF EUSTACHIAN TUBE 01/13/2011 ALLYN ASSOCIATE DIRECTOR CAREER SERVICES, EDUARDO S 381.81 DYSFUNCTION OF EUSTACHIAN TUBE 01/13/2011 ALLYN ASSOCIATE DIRECTOR CAREER SERVICES, EDUARDO S 381.81 DYSFUNCTION OF EUSTACHIAN TUBE 01/13/2011 ALLYN ASSOCIATE DIRECTOR CAREER SERVICES, EDUARDO S 381.81 DYSFUNCTION OF EUSTACHIAN TUBE [...] (3 YRS AND ABOVE, IM) 02/18/2011 [employer] ASSOCIATE [employer] CAREER SERVICES, EDUARDO S V04.81 FLU DX (3 YRS AND ABOVE, IM) 02/25/2011 702.8 OTHER SPECIFIED DERMATOSES 02/25/2011 702.8 OTHER SPECIFIED DERMATOSES 02/25/2011 CHRISS MENDEZ MD 702.8 OTHER SPECIFIED DERMATOSES 02/25/2011 ELVIA RUIZ DO K 702.8 OTHER SPECIFIED DERMATOSES 02/25/2011 [employer]YN ASSOCIATE DIRECTOR CAREER SERVICES, EDUARDO S 702.8 OTHER SPECIFIED DERMATOSES 02/25/2011 [employer]YN ASSOCIATE DIRECTOR CAREER SERVICES, EDUARDO S 702.8 OTHER SPECIFIED DERMATOSES 02/25/2011 ALLYN ASSOCIATE DIRECTOR CAREER SERVICES, EDUARDO S 702.8 OTHER SPECIFIED DERMATOSES 02/25/2011 NO PRATT, BENTLEY A 702.8 OTHER SPECIFIED DERMATOSES 02/25/2011 [employer]YN ASSOCIATE DIRECTOR CAREER SERVICES, EDUARDO S 702.8 OTHER SPECIFIED DERMATOSES 02/25/2011 ALLYN ASSOCIATE DIRECTOR CAREER SERVICES, EDUARDO S 702.8 OTHER SPECIFIED DERMATOSES 02/25/2011 ALLYN ASSOCIATE DIRECTOR CAREER SERVICES, EDUARDO S 702.8 OTHER SPECIFIED DERMATOSES 02/25/2011 ALLYN ASSOCIATE DIRECTOR CAREER SERVICES, EDUARDO S 702.8 OTHER SPECIFIED DERMATOSES 02/25/2011 [employer]YN ASSOCIATE DIRECTOR CAREER SERVICES, EDUARDO S 702.8 OTHER SPECIFIED DERMATOSES 03/03/2011 401.1 HYPERTENSION, BENIGN ESSENTIAL 03/03/2011 401.1 HYPERTENSION, BENIGN ESSENTIAL 03/03/2011 CHRISS MENDEZ MD 401.1 HYPERTENSION, BENIGN ESSENTIAL 03/03/2011 ELVIA RUIZ DO K 401.1 HYPERTENSION, BENIGN ESSENTIAL 03/03/2011 [employer] ASSOCIATE DIRECT[employer] CAREER SERVICES, EDUARDO S 401.1 HYPERTENSION, BENIGN ESSENTIAL 03/03/2011 [employer]YN ASSOCIATE DIRECTOR CAREER SERVICES, EDUARDO S 401.1 HYPERTENSION, BENIGN ESSENTIAL 03/03/2011 [employer]YN ASSOCIATE DIRECTOR CAREER SERVICES, EDUARDO S 401.1 HYPERTENSION, BENIGN ESSENTIAL 03/03/2011 NOQuique PRATT BENTLEY A 401.1 HYPERTENSION, BENIGN ESSENTIAL 03/03/2011 [employer]YN ASSOCIATE DIRECTOR CAREER SERVICES, EDUARDO S 401.1 HYPERTENSION, BENIGN ESSENTIAL 03/03/2011 ALLYN ASSOCIATE DIRECTOR CAREER SERVICES, EDUARDO S 401.1 HYPERTENSION, BENIGN ESSENTIAL 03/03/2011 [employer]YN ASSOCIATE DIRECTOR CAREER SERVICES, EDUARDO S 401.1 HYPERTENSION, BENIGN ESSENTIAL 03/03/2011 [employer]YN ASSOCIATE DIRECTOR CAREER SERVICES, EDUARDO S 401.1 HYPERTENSION, BENIGN ESSENTIAL 03/03/2011 [employer]YN ASSOCIATE DIRECTOR CAREER SERVICES, EDUARDO S 401.1 HYPERTENSION, BENIGN ESSENTIAL 04/07/2011 [...] V03.82 Need For Vaccination Pneumococcal 04/07/2011 [employer] ASSOCIATE [employer] SERVICES, EDUARDO S 465.9 UPPER RESPIRATORY INFECTION 04/07/2011 [employer] ASSOCIATE DIRECT[employer] CAREER SERVICES, EDUARDO S V03.82 Need For Vaccination Pneumococcal 04/07/2011 [facility] ASSOCIATE DIRECTOR CAREER SERVICES, EDUARDO S 465.9 UPPER RESPIRATORY INFECTION 04/07/2011 ALLYN AMAYAN, EDUARDO S V03.82 Need For Vaccination Pneumococcal 04/07/2011 [facility]YN ASSOCIATE DIRECTOR CAREER SERVICES, EDUARDO S 465.9 UPPER RESPIRATORY INFECTION 04/07/2011 [facility]YN ASSOCIATE DIRECTOR CAREER SERVICES, EDUARDO S V03.82 NEED FOR VACCINATION PNEUMOCOCCAL 04/07/2011 NO ASSOCIATE DIRECTOR CAREER SERVICES, BENTLEY A 465.9 UPPER RESPIRATORY INFECTION 04/07/2011 NO ASSOCIATE DIRECTOR CAREER SERVICES, BENTLEY A V03.82 NEED FOR VACCINATION PNEUMOCOCCAL 04/07/2011 [facility]YN ASSOCIATE DIRECTOR CAREER SERVICES, EDUARDO S 465.9 UPPER RESPIRATORY INFECTION 04/07/2011 [facility]YN ASSOCIATE DIRECTOR CAREER SERVICES, EDUARDO S V03.82 NEED FOR VACCINATION PNEUMOCOCCAL 04/07/2011 ALLYN ASSOCIATE DIRECTOR CAREER SERVICES, EDUARDO S 465.9 UPPER RESPIRATORY INFECTION 04/07/2011 ALLYN ASSOCIATE DIRECTOR CAREER SERVICES, EDUARDO S V03.82 NEED FOR VACCINATION PNEUMOCOCCAL 04/07/2011 ALLYN ASSOCIATE DIRECTOR CAREER SERVICES, EDUARDO S 465.9 UPPER RESPIRATORY INFECTION 04/07/2011 ALLYN ASSOCIATE DIRECTOR CAREER SERVICES, EDUARDO S V03.82 NEED FOR VACCINATION PNEUMOCOCCAL 04/07/2011 [facility]YN ASSOCIATE DIRECTOR CAREER SERVICES, EDUARDO S 465.9 UPPER RESPIRATORY INFECTION 04/07/2011 [...] OTHER SPECIFIED DISORDERS OF SKIN 07/06/2011 NO ASSOCIATE DIRECTOR CAREER SERVICES, BENTLEY A 386.11 BENIGN PAROXYSMAL POSITIONAL VERTIGO 07/06/2011 NO ASSOCIATE DIRECTOR CAREER SERVICES, BENTLEY A 709.8 OTHER SPECIFIED DISORDERS OF SKIN 07/06/2011 ALLYN PRATT, EDUARDO S 386.11 BENIGN PAROXYSMAL POSITIONAL VERTIGO 07/06/2011 ALLYN PRATT EDUARDO S 709.8 OTHER SPECIFIED DISORDERS OF SKIN 07/06/2011 ALLYN PRATT, EDUARDO S 386.11 BENIGN PAROXYSMAL POSITIONAL VERTIGO 07/06/2011 ALLYN PRATT EDUARDO S 709.8 OTHER SPECIFIED DISORDERS OF SKIN 07/06/2011 ALLYN PRATT EDUARDO S 386.11 BENIGN PAROXYSMAL POSITIONAL VERTIGO 07/06/2011 ALLYN ASSOCIATE DIRECTOR CAREER SERVICES, EDUARDO S 709.8 OTHER SPECIFIED DISORDERS OF SKIN 07/06/2011 ALLYN ASSOCIATE DIRECTOR CAREER SERVICES, EDUARDO S 386.11 BENIGN PAROXYSMAL POSITIONAL VERTIGO 07/06/2011 [facility]YN ASSOCIATE DIRECTOR CAREER SERVICES, EDUARDO S 709.8 OTHER SPECIFIED DISORDERS OF SKIN 07/06/2011 ALLYN ASSOCIATE DIRECTOR CAREER SERVICES, EDUARDO S 386.11 BENIGN PAROXYSMAL POSITIONAL VERTIGO 07/06/2011 [facility]YN ASSOCIATE DIRECTOR CAREER SERVICES, EDUARDO S 709.8 OTHER SPECIFIED DISORDERS OF [...] ELVIA RUIZ DO 786.2 COUGH 06/27/2012 [employer] ASSOCIATE DIRECTOR CAREER SERVICES, EDUARDO S 786.2 COUGH 06/27/2012 [employer]YN ASSOCIATE DIRECTOR CAREER SERVICES, EDUARDO S 786.2 COUGH 06/27/2012 [employer]YN ASSOCIATE DIRECTOR CAREER SERVICES, EDUARDO S 786.2 COUGH 06/27/2012 NO AMAYAN BENTLEY A 786.2 COUGH 06/27/2012 [facility]YN ASSOCIATE DIRECTOR CAREER SERVICES, EDUARDO S 786.2 COUGH 06/27/2012 ALLYN ASSOCIATE DIRECTOR CAREER SERVICES, EDUARDO S 786.2 COUGH 06/27/2012 ALLYN ASSOCIATE DIRECTOR CAREER SERVICES, EDUARDO S 786.2 COUGH 06/27/2012 ALLYN ASSOCIATE DIRECTOR CAREER SERVICES, EDUARDO S 786.2 COUGH 06/27/2012 ALLYN ASSOCIATE DIRECTOR CAREER SERVICES, EDUARDO S 786.2 COUGH 11/30/2012 SHAQ SILVA, RENETTA Ot 564.00 UNSPEC CONSTIPATION 11/30/2012 SHAQ SILVA, RENETTA Ot 599.0 URIN TRACT INFECTION NOS 11/30/2012 SHAQ SILVA, RENETTA Ot 787.01 NAUSEA WITH VOMITING 11/30/2012 RENETTA NEW MD Ot 789.01 ABDOMINAL PAIN, RIGHT UPPER QUADRANT 05/01/2013 [employer]YN ASSOCIATE DIRECTOR CAREER SERVICES, EDUARDO S 053.9 HERPES ZOSTER (SHINGLES) 05/01/2013 ALLYN ASSOCIATE DIRECTOR CAREER SERVICES, EDUARDO S 684 IMPETIGO 05/01/2013 ALLYN ASSOCIATE DIRECTOR CAREER SERVICES, EDUARDO S 053.9 HERPES ZOSTER (SHINGLES) 05/01/2013 ALLYN ASSOCIATE DIRECTOR CAREER SERVICES, EDUARDO S 684 IMPETIGO 05/01/2013 ALLYN ASSOCIATE DIRECTOR CAREER SERVICES, EDUARDO S 053.9 HERPES ZOSTER (SHINGLES) 05/01/2013 ALLYN ASSOCIATE DIRECTOR CAREER SERVICES, EDUARDO S 684 IMPETIGO 05/01/2013 NO ASSOCIATE DIRECTOR CAREER SERVICES, BENTLEY A 053.9 HERPES ZOSTER (SHINGLES) 05/01/2013 NO ASSOCIATE DIRECTOR CAREER SERVICES, BENTLEY A 684 IMPETIGO 05/01/2013 ALLYN ASSOCIATE DIRECTOR CAREER SERVICES, EDUARDO S 053.9 HERPES ZOSTER (SHINGLES) 05/01/2013 ALLYN ASSOCIATE DIRECTOR CAREER SERVICES, EDUARDO S 684 IMPETIGO 05/01/2013 ALLYN ASSOCIATE DIRECTOR CAREER SERVICES, EDUARDO S 053.9 HERPES ZOSTER (SHINGLES) 05/01/2013 ALLYN ASSOCIATE DIRECTOR CAREER SERVICES, EDUARDO S 684 IMPETIGO 05/01/2013 ALLYN ASSOCIATE DIRECTOR CAREER SERVICES, EDUARDO S 053.9 HERPES ZOSTER (SHINGLES) 05/01/2013 ALLYN ASSOCIATE DIRECTOR CAREER SERVICES, EDUARDO S 684 IMPETIGO 05/01/2013 ALLYN ASSOCIATE DIRECTOR CAREER SERVICES, EDUARDO S 053.9 HERPES ZOSTER (SHINGLES) 05/01/2013 ALLYN ASSOCIATE DIRECTOR CAREER SERVICES, EDUARDO S 684 IMPETIGO 05/01/2013 ALLYN ASSOCIATE DIRECTOR CAREER SERVICES, EDUARDO S 053.9 HERPES ZOSTER (SHINGLES) 05/01/2013 ALLYN ASSOCIATE DIRECTOR CAREER SERVICES, EDUARDO S 684 IMPETIGO 06/20/2013 ALLYN ASSOCIATE DIRECTOR CAREER SERVICES, EDUARDO S 599.0 URINARY TRACT INFECTION 06/20/2013 ALLYN PRATT EDUARDO S 599.0 URINARY TRACT INFECTION 06/20/2013 BENTLEY SARABIA APRN A 599.0 URINARY TRACT INFECTION 06/20/2013 ALLYN ASSOCIATE DIRECTOR CAREER SERVICES, EDUARDO S 599.0 URINARY TRACT INFECTION 06/20/2013 ALLYN ASSOCIATE DIRECTOR CAREER SERVICES, EDUARDO S 599.0 URINARY TRACT INFECTION 06/20/2013 JON GRUBER APRNNDA S 599.0 URINARY TRACT INFECTION 06/20/2013 ALLYN ASSOCIATE DIRECTOR CAREER SERVICES, EDUARDO S 599.0 URINARY TRACT INFECTION 06/20/2013 [...] CAUSED BY OTHER OBJ 10/24/2013 BISI BUCK ASSOCIATE DIRECTOR CAREER SERVICES Ot 682.2 CELLULITIS OF TRUNK 10/26/2013 JON [...] SIGNS AND SYMPTOMS IN BREAST 11/14/2013 NO ASSOCIATE DIRECTOR CAREER SERVICES BENTLEY A 625.0 DYSPAREUNIA 11/14/2013 NO AMAYAN BENTLEY A 719.43 PAIN- WRIST 11/14/2013 NO AMAYANCARMENBENTLEY A V16.3 FAM HX CANCER, BREAST 11/14/2013 NO AMAYANCARMENBENTLEY A V72.31 SEAMLESS TUBE MILL OPERATOR EXAM, ROUTINE 11/14/2013 NO ASSOCIATE DIRECTOR CAREER SERVICES BENTLEY A V76.10 BREAST CANCER SCREENING 11/14/2013 NO AMAYAN BENTLEY A V76.51 COLON CANCER SCREENING 11/14/2013 ALLYN ASSOCIATE DIRECTOR CAREER SERVICES, EDUARDO S 611.6 GALACTORRHEA NOT ASSOCIATED WITH CHILDBIRTH 11/14/2013 ALLYN ASSOCIATE DIRECTOR CAREER SERVICES, EDUARDO S 611.79 OTHER SIGNS AND SYMPTOMS IN BREAST 11/14/2013 ALLYN ASSOCIATE DIRECTOR CAREER SERVICES, EDUARDO S 625.0 DYSPAREUNIA 11/14/2013 ALLYNMELLO AMAYAN, EDUARDO S 719.43 PAIN- WRIST 11/14/2013 ALLYN ASSOCIATE DIRECTOR CAREER SERVICES, EDUARDO S V16.3 FAM HX CANCER, BREAST 11/14/2013 ALLYN ASSOCIATE DIRECTOR CAREER SERVICES, EDUARDO S V72.31 SEAMLESS TUBE MILL OPERATOR EXAM, ROUTINE 11/14/2013 ALLYN ASSOCIATE DIRECTOR CAREER SERVICES, EDUARDO S V76.10 BREAST CANCER SCREENING 11/14/2013 ALLYN ASSOCIATE DIRECTOR CAREER SERVICES, EDUARDO S V76.51 COLON CANCER SCREENING 11/14/2013 ALLYN ASSOCIATE DIRECTOR CAREER SERVICES, EDUARDO S 611.6 GALACTORRHEA NOT ASSOCIATED WITH CHILDBIRTH 11/14/2013 ALLYN ASSOCIATE DIRECTOR CAREER SERVICES, EDUARDO S 611.79 OTHER SIGNS AND SYMPTOMS IN BREAST 11/14/2013 ALLYN ASSOCIATE DIRECTOR CAREER SERVICES, EDUARDO S 625.0 DYSPAREUNIA 11/14/2013 ALLYN ASSOCIATE DIRECTOR CAREER SERVICES, EDUARDO S 719.43 PAIN- WRIST 11/14/2013 ALLYN ASSOCIATE DIRECTOR CAREER SERVICES, EDUARDO S V16.3 FAM HX CANCER, BREAST 11/14/2013 ALLYN ASSOCIATE DIRECTOR CAREER SERVICES, EDUARDO S V72.31 SEAMLESS TUBE MILL OPERATOR EXAM, ROUTINE 11/14/2013 ALLYN ASSOCIATE DIRECTOR CAREER SERVICES, EDUARDO S V76.10 BREAST CANCER SCREENING 11/14/2013 ALLYN ASSOCIATE DIRECTOR CAREER SERVICES, EDUARDO S V76.51 COLON CANCER SCREENING 11/14/2013 ALLYN ASSOCIATE DIRECTOR CAREER SERVICES, EDUARDO S 611.6 GALACTORRHEA NOT ASSOCIATED WITH CHILDBIRTH 11/14/2013 ALLYN ASSOCIATE DIRECTOR CAREER SERVICES, EDUARDO S 611.79 OTHER SIGNS AND SYMPTOMS IN BREAST 11/14/2013 ALLYN ASSOCIATE DIRECTOR CAREER SERVICES, EDUARDO S 625.0 DYSPAREUNIA 11/14/2013 ALLYN ASSOCIATE DIRECTOR CAREER SERVICES, EDUARDO S 719.43 PAIN- WRIST 11/14/2013 ALLYN ASSOCIATE DIRECTOR CAREER SERVICES, EDUARDO S V16.3 FAM HX CANCER, BREAST 11/14/2013 ALLYN ASSOCIATE DIRECTOR CAREER SERVICES, EDUARDO S V72.31 SEAMLESS TUBE MILL OPERATOR EXAM, ROUTINE 11/14/2013 ALLYN ASSOCIATE DIRECTOR CAREER SERVICES, EDUARDO S V76.10 BREAST CANCER SCREENING 11/14/2013 ALLYN ASSOCIATE DIRECTOR CAREER SERVICES, EDUARDO S V76.51 COLON CANCER SCREENING 11/14/2013 ALLYN ASSOCIATE DIRECTOR CAREER SERVICES, EDUARDO S 611.6 GALACTORRHEA NOT ASSOCIATED WITH CHILDBIRTH 11/14/2013 ALLYN ASSOCIATE DIRECTOR CAREER SERVICES, EDUARDO S 611.79 OTHER SIGNS AND SYMPTOMS IN BREAST 11/14/2013 ALLYN ASSOCIATE DIRECTOR CAREER SERVICES, EDUARDO S 625.0 DYSPAREUNIA 11/14/2013 ALLYN ASSOCIATE DIRECTOR CAREER SERVICES, EDUARDO S 719.43 PAIN- WRIST 11/14/2013 ALLYN ASSOCIATE DIRECTOR CAREER SERVICES, EDUARDO S V16.3 FAM HX CANCER, BREAST 11/14/2013 ALLYN ASSOCIATE DIRECTOR CAREER SERVICES, EDUARDO S V72.31 SEAMLESS TUBE MILL OPERATOR EXAM, ROUTINE 11/14/2013 ALLYN ASSOCIATE DIRECTOR CAREER SERVICES, EDUARDO S V76.10 BREAST CANCER SCREENING 11/14/2013 ALLYN ASSOCIATE DIRECTOR CAREER SERVICES, EDUARDO S V76.51 COLON CANCER SCREENING 11/14/2013 ALLYN ASSOCIATE DIRECTOR CAREER SERVICES, EDUARDO S 611.6 GALACTORRHEA NOT ASSOCIATED WITH CHILDBIRTH 11/14/2013 ALLYN ASSOCIATE DIRECTOR CAREER SERVICES, EDUARDO S 611.79 OTHER SIGNS AND SYMPTOMS IN BREAST 11/14/2013 ALLYN ASSOCIATE DIRECTOR CAREER SERVICES, EDUARDO S 625.0 DYSPAREUNIA 11/14/2013 ALLYN ASSOCIATE DIRECTOR CAREER SERVICES, EDUARDO S 719.43 PAIN- WRIST 11/14/2013 ALLYN ASSOCIATE DIRECTOR CAREER SERVICES, EDUARDO S V16.3 FAM HX CANCER, BREAST 11/14/2013 ALLYN ASSOCIATE DIRECTOR CAREER SERVICES, EDUARDO S V72.31 SEAMLESS TUBE MILL OPERATOR EXAM, ROUTINE 11/14/2013 ALLYN ASSOCIATE DIRECTOR CAREER SERVICES, EDUARDO S V76.10 BREAST CANCER SCREENING 11/14/2013 ALLYN ASSOCIATE DIRECTOR CAREER SERVICES, EDUARDO S V76.51 COLON CANCER SCREENING 02/05/2014 ALLYN ASSOCIATE DIRECTOR CAREER SERVICES, EDUARDO S 477.0 ALLERGIC RHINITIS DUE TO POLLEN 02/05/2014 ALLYN ASSOCIATE DIRECTOR CAREER SERVICES, EDUARDO S 789.00 ABDOMINAL PAIN UNSPECIFIED SITE 02/05/2014 ALLYN ASSOCIATE DIRECTOR CAREER SERVICES, EDUARDO S 477.0 ALLERGIC RHINITIS DUE TO POLLEN 02/05/2014 ALLYN ASSOCIATE DIRECTOR CAREER SERVICES, EDUARDO S 789.00 ABDOMINAL PAIN UNSPECIFIED SITE 02/05/2014 ALLYN ASSOCIATE DIRECTOR CAREER SERVICES, EDUARDO S 477.0 ALLERGIC RHINITIS DUE TO POLLEN 02/05/2014 ALLYN ASSOCIATE DIRECTOR CAREER SERVICES, EDUARDO S 789.00 ABDOMINAL PAIN UNSPECIFIED SITE 02/05/2014 ALLYN ASSOCIATE DIRECTOR CAREER SERVICES, EDUARDO S 477.0 ALLERGIC RHINITIS DUE TO POLLEN 02/05/2014 ALLYN ASSOCIATE DIRECTOR CAREER SERVICES, EDUARDO S 789.00 ABDOMINAL PAIN UNSPECIFIED SITE 03/03/2014 BISI BUCK ASSOCIATE DIRECTOR CAREER SERVICES Ot 599.0 URIN TRACT INFECTION NOS 03/03/2014 BISI BUCK ASSOCIATE DIRECTOR CAREER SERVICES Ot 789.03 ABDOMINAL PAIN, RIGHT LOWER QUADRANT 03/21/2014 BISI BUCK ASSOCIATE DIRECTOR CAREER SERVICES Ot 599.0 URIN TRACT INFECTION NOS 03/21/2014 BISI BUCK ASSOCIATE DIRECTOR CAREER SERVICES Ot 789.03 ABDOMINAL PAIN, RIGHT LOWER QUADRANT 03/21/2014 NO BENTLEY A ASSOCIATE DIRECTOR CAREER SERVICES Ot 611.6 03/21/2014 NO, BENTLEY A ASSOCIATE DIRECTOR CAREER SERVICES Ot 611.79 03/21/2014 NO, BENTLEY A ASSOCIATE DIRECTOR CAREER SERVICES Ot 625.0 03/21/2014 NO, BENTLEY A ASSOCIATE DIRECTOR CAREER SERVICES Ot V16.3 03/21/2014 NO, BENTLEY A ASSOCIATE DIRECTOR CAREER SERVICES Ot V72.31 03/21/2014 NO, BENTLEY A ASSOCIATE DIRECTOR CAREER SERVICES Ot V76.11 03/21/2014 NO, BENTLEY A ASSOCIATE DIRECTOR CAREER SERVICES Ot V76.51 04/10/2014 ALLYN ASSOCIATE DIRECTOR CAREER SERVICES, EDUARDO S 112.3 CANDIDIASIS OF SKIN AND NAILS 04/10/2014 ALLYN ASSOCIATE DIRECTOR CAREER SERVICES, EDUARDO S V04.81 FLU SHOT 04/10/2014 ALLYN ASSOCIATE DIRECTOR CAREER SERVICES, EDUARDO S 112.3 CANDIDIASIS OF SKIN AND NAILS 04/10/2014 ALLYN ASSOCIATE DIRECTOR CAREER SERVICES, EDUARDO S V04.81 FLU SHOT 04/10/2014 ALLYN ASSOCIATE DIRECTOR CAREER SERVICES, EDUARDO S 112.3 CANDIDIASIS OF SKIN AND NAILS 04/10/2014 ALLYN ASSOCIATE DIRECTOR CAREER SERVICES, EDUARDO S V04.81 FLU SHOT 07/23/2014 ALLYN ASSOCIATE DIRECTOR CAREER SERVICES, EDUARDO S 388.70 OTALGIA 07/23/2014 ALLYN ASSOCIATE DIRECTOR CAREER SERVICES, EDUARDO S 465.9 UPPER RESPIRATORY INFECTION 07/23/2014 ALLYN ASSOCIATE DIRECTOR CAREER SERVICES, EDUARDO S 780.4 DIZZINESS AND VERTIGO 07/23/2014 ALLYN ASSOCIATE DIRECTOR CAREER SERVICES, EDUARDO S 786.2 COUGH 07/23/2014 ALLYN ASSOCIATE DIRECTOR CAREER SERVICES, EDUARDO S 388.70 OTALGIA 07/23/2014 ALLYN ASSOCIATE DIRECTOR CAREER SERVICES, EDUARDO S 465.9 UPPER RESPIRATORY INFECTION 07/23/2014 ALLYN ASSOCIATE DIRECTOR CAREER SERVICES, EDUARDO S 780.4 DIZZINESS AND VERTIGO 07/23/2014 ALLYN ASSOCIATE DIRECTOR CAREER SERVICES, EDUARDO S 786.2 COUGH 08/27/2014 ALLYN ASSOCIATE DIRECTOR CAREER SERVICES, EDUARDO S 493.90 ASTHMA UNSPECIFIED 08/27/2014 ALLYN ASSOCIATE DIRECTOR CAREER SERVICES, EDUARDO S 599.0 URINARY TRACT INFECTION 08/27/2014 ALLYN ASSOCIATE DIRECTOR CAREER SERVICES, EDUARDO S 788.1 DYSURIA 10/10/2014 NO, BENTLEY A ASSOCIATE DIRECTOR CAREER SERVICES Ot 611.6 10/10/2014 NO, BENTLEY A ASSOCIATE DIRECTOR CAREER SERVICES Ot 611.79 10/10/2014 NO, BENTLEY A ASSOCIATE DIRECTOR CAREER SERVICES Ot 625.0 10/10/2014 NO, BENTLEY A ASSOCIATE DIRECTOR CAREER SERVICES Ot V16.3 10/10/2014 NO, BENTLEY A ASSOCIATE DIRECTOR CAREER SERVICES Ot V72.31 10/10/2014 NO, BENTLEY A ASSOCIATE DIRECTOR CAREER SERVICES Ot V76.11 10/10/2014 NO, BENTLEY A ASSOCIATE DIRECTOR CAREER SERVICES Ot V76.51 10/10/2014 VLADIMIR MARK DO Ot 133.0 SCABIES 10/10/2014 DEEDEE ABRAHAM VLADIMIR Ronnie Ot 782.1 NONSPECIF SKIN ERUPT NEC 10/24/2014 HAMZAH SILVA, NURA Trujillo Ot 133.0 SCABIES 11/26/2014 ELIGIO JUAREZ DO Ot 133.0 SCABIES 11/26/2014 ELIGIO JUAREZ DO Ot 782.1 NONSPECIF SKIN ERUPT NEC 02/11/2015 BISI BUCK ASSOCIATE DIRECTOR CAREER SERVICES Ot T18.128A FOOD IN ESOPHAGUS CAUSING OTHER INJURY, 02/11/2015 BISI BUCK ASSOCIATE DIRECTOR CAREER SERVICES Ot X58.XXXA EXPOSURE TO OTHER SPECIFIED FACTORS, INI 02/11/2015 BISI BUCK ASSOCIATE DIRECTOR CAREER SERVICES Ot Y99.8 OTHER EXTERNAL CAUSE STATUS 08/21/2015 [...] EFFECT OF GLUCOCORT/SYNTH ANALOG 01/06/2016 BENTLEY SARABIA ASSOCIATE DIRECTOR CAREER SERVICES Ot 611.6 GALACTORRHEA-NONOBSTET 01/06/2016 BENTLEY SARABIA APRN Ot 611.79 SYMPTOMS IN BREAST NEC 01/06/2016 BENTLEY SARABIA ASSOCIATE DIRECTOR CAREER SERVICES Ot 625.0 DYSPAREUNIA 01/06/2016 BENTLEY SARABIA APRN Ot V16.3 FAMILY HX-BREAST MALIG 01/06/2016 BENTLEY SARABIA APRN Ot V72.31 ROUTINE GYNECOLOGICAL EXAMINATION 01/06/2016 BENTLEY SARABIA ASSOCIATE DIRECTOR CAREER SERVICES Ot V76.11 SCRN MAMMO-HIGH RISK PT, MALIGNANT NEOPL 01/06/2016 BENTLEY SARABIA ASSOCIATE DIRECTOR CAREER SERVICES Ot V76.51 SCREEN MAL NEOP-COLON 01/07/2016 ELVIA [...] 06/19/2016 BISI BUCK APRN Ot Z79.899 OTHER JOGGLE PRESS OPERATOR (CURRENT) DRUG THERAPY 06/19/2016 BISI BUCK APRN [...] ANXIETY DISORDER, UNSPECIFIED 06/22/2016 BUCK, PETER J ASSOCIATE DIRECTOR CAREER SERVICES Ot I10 ESSENTIAL (PRIMARY) HYPERTENSION 06/22/2016 BISI BUCK ASSOCIATE DIRECTOR CAREER SERVICES Ot J44.9 CHRONIC OBSTRUCTIVE PULMONARY DISEASE, U 06/22/2016 BISI BUCK ASSOCIATE DIRECTOR CAREER SERVICES Ot N39.0 URINARY TRACT INFECTION, SITE NOT SPECIF 06/22/2016 BISI BUCK APRN Ot R10.31 RIGHT LOWER QUADRANT PAIN 06/22/2016 BISI BUCK ASSOCIATE DIRECTOR CAREER SERVICES Ot Z79.899 OTHER JOGGLE PRESS OPERATOR (CURRENT) DRUG THERAPY 06/22/2016 BISI BUCK ASSOCIATE DIRECTOR CAREER SERVICES Ot Z90.49 ACQUIRED ABSENCE OF OTHER SPECIFIED PART 06/22/2016 BISI BUCK ASSOCIATE DIRECTOR CAREER SERVICES Ot Z90.710 ACQUIRED ABSENCE OF BOTH CERVIX AND UTER 06/22/2016 BISI BUCK ASSOCIATE DIRECTOR CAREER SERVICES Ot Z90.89 ACQUIRED ABSENCE OF OTHER ORGANS 06/22/2016 BISI BUCK ASSOCIATE DIRECTOR CAREER SERVICES Ot E11.9 TYPE 2 DIABETES MELLITUS WITHOUT COMPLIC 06/22/2016 BISI BUCK ASSOCIATE DIRECTOR CAREER SERVICES Ot F41.9 ANXIETY DISORDER, UNSPECIFIED 06/22/2016 BISI BUCK ASSOCIATE DIRECTOR CAREER SERVICES Ot I10 ESSENTIAL (PRIMARY) HYPERTENSION 06/22/2016 BISI BUCK APRN Ot J44.9 CHRONIC OBSTRUCTIVE PULMONARY DISEASE, U 06/22/2016 BISI BUCK APRN Ot N39.0 URINARY TRACT INFECTION, SITE NOT SPECIF 06/22/2016 BISI BUCK APRN Ot R10.31 RIGHT LOWER QUADRANT PAIN 06/22/2016 BISI BUCK APRN Ot Z79.899 OTHER USP (CURRENT) DRUG THERAPY 06/22/2016 BISI BUCK ASSOCIATE DIRECTOR CAREER SERVICES Ot Z90.49 ACQUIRED ABSENCE OF OTHER SPECIFIED PART 06/22/2016 BISI BUCK ASSOCIATE DIRECTOR CAREER SERVICES Ot Z90.710 ACQUIRED ABSENCE OF BOTH CERVIX AND UTER 06/22/2016 BISI BUCK ASSOCIATE DIRECTOR CAREER SERVICES Ot Z90.89 ACQUIRED ABSENCE OF OTHER ORGANS [...] 12/21/2016 BRIONNA HARLEY MD, Ot Z79.899 OTHER JOGGLE PRESS OPERATOR (CURRENT) DRUG THERAPY 05/14/2017 NURA GOODSON MD, [...] PAIN 10/22/2017 MARY ALCALA MD Ot Z79.51 USP (CURRENT) USE OF INHALED STERO 10/22/2017 MARY [...] Ot G47.30 SLEEP APNEA, UNSPECIFIED 10/25/2017 MARY ALCAAL MD Ot I10 ESSENTIAL (PRIMARY) HYPERTENSION 10/25/2017 MARY ALCALA MD Ot J44.9 CHRONIC OBSTRUCTIVE PULMONARY DISEASE, U 10/25/2017 MARY ALCALA MD Ot K21.9 GASTRO-ESOPHAGEAL REFLUX DISEASE WITHOUT 10/25/2017 MARY ALCALA MD Ot R10.10 UPPER ABDOMINAL PAIN, UNSPECIFIED 10/25/2017 MARY ALCALA MD Ot R10.12 LEFT UPPER QUADRANT PAIN 10/25/2017 MARY ALCALA MD Ot Z79.51 USP (CURRENT) USE OF INHALED STERO 10/25/2017 MARY ALCALA MD Ot Z80.0 FAMILY HISTORY OF MALIGNANT NEOPLASM OF 10/25/2017 MARY ALCALA MD Ot Z82.49 FAMILY HX [...] Z12.31 ENCNTR SCREEN MAMMOGRAM FOR MALIGNANT NE 12/14/2017 Ot E11.9 TYPE 2 DIABETES MELLITUS WITHOUT COMPLIC 12/14/2017 Ot F32.9 MAJOR DEPRESSIVE DISORDER, SINGLE EPISOD 12/14/2017 Ot F41.9 ANXIETY DISORDER, UNSPECIFIED 12/14/2017 Ot G40.909 EPILEPSY, UNSP, NOT INTRACTABLE, WITHOUT 12/14/2017 Ot G43.909 MIGRAINE, UNSP, NOT INTRACTABLE, WITHOUT 12/14/2017 Ot I10 ESSENTIAL ( PRIMARY) HYPERTENSION 12/14/2017 Ot J44.9 CHRONIC OBSTRUCTIVE PULMONARY DISEASE, U 12/14/2017 Ot L30.4 ERYTHEMA INTERTRIGO 12/14/2017 Ot R21 RASH AND OTHER NONSPECIFIC SKIN ERUPTION 12/14/2017 Ot Z80.0 FAMILY HISTORY OF MALIGNANT NEOPLASM OF 12/14/2017 Ot Z87.442 PERSONAL HISTORY OF URINARY CALCULI 12/14/2017 Ot Z88.0 ALLERGY STATUS TO PENICILLIN 12/14/2017 Ot Z88.8 ALLERGY STATUS TO OTH DRUG/MEDS/BIOL SUB 12/14/2017 Ot Z90.49 ACQUIRED ABSENCE OF OTHER SPECIFIED PART 12/14/2017 Ot Z90.710 ACQUIRED ABSENCE OF BOTH CERVIX AND UTER 12/14/2017 Ot Z98.51 TUBAL LIGATION STATUS Procedures Code Description [place] [address] MEASURE BLOOD OXYGEN LEVEL 06/28/2012 82565 ROUTINE VENIPUNCTURE 04/24/2013 44721 CBC 04/24/20131175566 GFR CALC (RESULT ONLY) 04/24/2013 01371 CMP 04/24/2013 11977 LIPID PANEL 04/24/2013 24845 CULTURE URINE 06/20/2013 87130 UA LONG DIP 06/20/2013 01778 XRAY HAND RIGHT MIN 3 VIEWS 11/14/2013 64473 MAMMOGRAM DX, STEFFANIE 11/14/2013 01833 ROUTINE VENIPUNCTURE 02/05/2014 96558 CBC 02/05/2014 47795 CMP 02/05/2014 84768 LIPID PANEL 02/05/20148533954 GFR CALC (RESULT ONLY) 02/05/2014 52969 UA LONG DIP 08/27/2014 Results Test Result [...] culture - 01/06/16 16:26 Bacterial urine culture [id number] NRG COLONY COUNT >100,000/ML NRG URINE CULTURE [...] 06/19/16 17:15 Blood monocytes/100 leukocytes 5 % NR Manual blood segmented neutrophils/100 leukocytes 51 % NRG Blood band neutrophils/100 leukocytes 1 % NRG Manual blood lymphocytes/100 leukocytes 42 % NRG Manual eosinophils/100 leukocytes in nose 1 % NRG Manual blood basophils/100 leukocytes 0 % NR Blood erythrocyte morphology finding identification [facility] Comprehensive metabolic panel - 06/19/16 17:15 Serum [...] culture - 06/19/16 19:14 Bacterial urine culture [id number] NRG COLONY COUNT >100,000/ML NRG FTX;REPORTABLE MIXED [...] culture - 12/18/16 02:37 Bacterial urine culture [id number] NRG COLONY COUNT 10,000/ML - 100,000/ML NRG [...] protein measurement (mass/volume) 1.08 mg /dL 0.00-0.50 Urine drug screening test - 01/24/18 19:18 Urine phencyclidine detection by screening method NEGATIVE [...] Complete urinalysis with reflex to culture - 01/24/18 19:18 Urine color determination YELLOW NRG Urine clarity determination CLEAR NRG Urine pH measurement by test strip 6.5 5-9 Specific gravity of urine by test [...] urine sediment by light microscopy NONE NRG Squamous epithelial cells detection in urine sediment by light microscopy 0-2 NRG Crystals detection in urine sediment by light microscopy NONE NRG Casts detection in urine sediment by light microscopy NONE NRG Mucus detection in urine sediment by light microscopy NEGATIVE NRG Complete urinalysis with reflex to culture NO NRG Complete blood count (CBC) with automated white blood cell (WBC) differential - 01/24/18 19:24 Blood leukocytes automated count (number/volume) 7.9 10*3/uL 4.3-11.0 Blood erythrocytes automated count (number/volume) 4.04 10*6/uL 4.35-5.85 Venous blood hemoglobin measurement (mass/volume) 12.4 g/dL 11.5-16.0 Blood hematocrit (volume fraction) 35 % 35-52 Automated erythrocyte mean corpuscular volume 88 [foz_us] 80-99 Automated erythrocyte mean corpuscular hemoglobin (mass per erythrocyte) 31 pg 25-34 Automated erythrocyte mean corpuscular hemoglobin concentration measurement ( mass/volume) 35 g/dL 32-36 Automated erythrocyte distribution width ratio 13.9 % 10.0-14.5 Automated blood platelet count (count/volume) 282 10*3/uL 130-400 Automated blood platelet mean volume measurement 8.3 [foz_us] 7.4-10.4 Automated blood neutrophils/100 leukocytes 55 % 42-75 Automated blood lymphocytes/100 leukocytes 38 % 12-44 Blood monocytes/100 leukocytes 4 % 0-12 Automated blood eosinophils/100 leukocytes 3 % 0-10 Automated blood basophils/100 leukocytes 1 % 0-10 Blood neutrophils automated count (number/volume) 4.3 10*3 1.8-7.8 Blood lymphocytes automated count (number/volume) 3.0 10*3 1.0-4.0 Blood monocytes automated count (number/volume) 0.3 10*3 0.0-1.0 Automated eosinophil count 0.3 10*3/uL 0.0-0.3 Automated blood basophil count (count/volume) 0.0 10*3/uL 0.0-0.1 Comprehensive metabolic panel - 01/24/18 19:24 Serum or plasma sodium measurement (moles/volume) 141 mmol/L 135-145 Serum or plasma potassium measurement (moles/volume) 4.2 mmol/L 3.6-5.0 Serum or plasma chloride measurement (moles/volume) 106 mmol/L 98-107 Carbon dioxide 21 mmol/L 21-32 Serum or plasma anion gap determination (moles/volume) 14 mmol/L 5-14 Serum or plasma urea nitrogen measurement (mass/volume) 12 mg/dL 7-18 Serum or plasma creatinine measurement (mass/volume) 0.82 mg/dL 0.60-1.30 Serum or plasma urea nitrogen/creatinine mass ratio 15 NRG Serum or plasma creatinine measurement with calculation of estimated glomerular filtration rate > NRG Serum or plasma glucose measurement (mass/volume) 116 mg/dL 70-105 Serum or plasma calcium measurement (mass/volume) 9.8 mg/dL 8.5-10.1 Serum or plasma total bilirubin measurement (mass/volume) 0.3 mg/dL 0.1-1.0 Serum or plasma alkaline phosphatase measurement (enzymatic activity/volume) 57 U/L 40-136 Serum or plasma aspartate aminotransferase measurement (enzymatic activity/ volume) 15 U/L 5-34 Serum or plasma alanine aminotransferase measurement (enzymatic activity/volume ) 16 U/L 0-55 Serum or plasma protein measurement (mass/volume) 8.2 g/dL 6.4-8.2 Serum or plasma albumin measurement (mass/volume) 4.6 g/dL 3.2-4.5 Serum or plasma salicylates measurement (mass/volume) - 01/24/18 19:24 Serum or plasma salicylates measurement (mass/volume) < mg/dL 5.0-20.0 Serum or plasma acetaminophen measurement (mass/volume) - 01/24/18 19:24 Serum or plasma acetaminophen measurement (mass/volume) < ug/mL 10-30 Serum or plasma ethanol measurement (mass/volume) - 01/24/18 19:24 Serum or plasma ethanol measurement (mass/volume) 190 mg/dL <10 Encounters ACCT No. Visit Date/Time Discharge Status Pt. Type Provider Facility Loc./Unit Complaint [id number] 08/27/2014 08:55:00 08/27/2014 23:59:59 CLS Outpatient EDUARDO GRUBER APRN S [id number] 07/23/2014 10:13:00 07/23/2014 23:59:59 CLS Outpatient EDUARDO GRUBER APRN S [id number] 04/10/2014 08:19:00 04/10/2014 23:59:59 CLS Outpatient EDUARDO GRUBER APRN S [id number] 02/05/2014 08:51:00 02/05/2014 23:59:59 CLS Outpatient DEXTER GRUBER APRNA S [id number] 11/14/2013 09:27:00 11/14/2013 23:59:59 CLS Outpatient NOBENTLEY MARKS APRN [id number] 11/14/2013 08:46:00 11/14/2013 23:59:59 CLS Outpatient EDUARDO GRUBER APRN S [id number] 10/26/2013 16:57:00 10/26/2013 23:59:59 CLS Outpatient DEXTER GRUBER APRNA S [id number] 06/20/2013 08:26:00 06/20/2013 23:59:59 CLS Outpatient DEXTER GRUBER APRNA S [id number] 05/01/2013 09:33:00 05/01/2013 23:59:59 CLS Outpatient DEXTER GRUBER APRNA S [id number] 04/24/2013 09:37:00 04/24/2013 23:59:59 CLS Outpatient ELVIA RUIZ DO [id number] 12/19/2012 06:36:00 12/19/2012 23:59:59 CLS Outpatient CHRISS MENDEZ MD [id number] 06/27/2012 13:49:00 06/27/2012 23:59:59 CLS Outpatient [id number] 06/27/2012 13:49:00 06/27/2012 23:59:59 CLS Outpatient [id number] 10/22/2016 08:35:00 Document Registration [id number] 10/11/2017 08:20:00 10/11/2017 23:59:59 CLS Outpatient EDUARDO GRUBER APRN [facility] [id number] 08/02/2017 10:17:00 Document Registration [id number] 03/27/2016 18:05:00 Document Registration [id number] 10/27/2017 10:20:00 10/27/2017 23:59:59 CLS Outpatient EDUARDO GRUBER [facility] RAD SCREENING [id number] 10/22/2017 10:06:00 10/22/2017 14:39:00 DIS Emergency MARY ALCALA MD [facility] ER V/D/DIZZINESS [id number] 05/14/2017 08:08:00 05/14/2017 12:14:00 DIS Emergency NURA GOODSON MD [facility] ER FLU [id number] 12/18/2016 08:50:00 12/21/2016 11:15:00 DIS Inpatient CRICKET SILVA, BRIONNA Nguyen [facility] 4TH SUICIDE IDEATION;PENDING ADMIT TO [place] [id number] 07/27/2016 09:45:00 07/27/2016 12:05:00 DIS Outpatient ARUN CABRERA MD [facility] ENDO RECTAL PAIN;RECTAL BLEEDING [id number] 07/23/2016 06:20:00 07/23/2016 17:02:00 DIS Outpatient ARUN CABRERA MD [facility] PREOP RECTAL PAIN; BLEEDING [id number] 07/13/2016 09:22:00 07/13/2016 12:05:00 DIS Outpatient ARUN CABRERA MD [facility] ENDO RECTAL BLEEDING [id number] 07/08/2016 09:22:00 07/08/2016 09:49:00 DIS Outpatient ARUN CABRERA MD [facility] PREOP RECTAL BLEEDING [id number] 06/19/2016 19:12:00 06/19/2016 21:25:00 DIS Emergency BISI BUCK APRN [facility] ER RECTAL BLEEDING, PAIN [id number] 04/06/2016 10:55:00 04/06/2016 23:59:59 CLS Outpatient RICK SILVA, ARUN Rand [facility] RAD CELLULITIS [id number] 03/31/2016 08:46:00 03/31/2016 16:00:00 DIS Outpatient TONI MA MD [facility] WOUNDCARE [id number] 01/06/2016 20:30:00 01/07/2016 16:22:00 DIS Inpatient SARA ABRAHAM ELVIA K [facility] 4TH RLQ ABD PAIN,N/V,UTI [id number] 08/20/2015 13:13:00 08/21/2015 10:30:00 DIS Inpatient SHIVA MEREDITH MD [facility] 4TH INTRACTABLE VERTIGO HYPERTENSIVE URGENCY [id number] 02/11/2015 19:27:00 02/11/2015 21:00:00 DIS Emergency BISI BUCK ASSOCIATE DIRECTOR CAREER SERVICES [facility] ER POSS FOREIGN BODY [id number] 11/26/2014 09:55:00 11/26/2014 10:47:00 DIS Emergency ELIGIO JUAREZ DO [facility] ER RASH [id number] 10/24/2014 08:39:00 10/24/2014 11:11:00 DIS Emergency NURA GOODSON MD [facility] ER SCABIES [id number] 10/10/2014 08:50:00 10/10/2014 09:24:00 DIS Emergency VLADIMIR MARK DO K [facility] ER RASH [id number] 03/21/2014 14:10:00 03/21/2014 15:45:00 DIS Emergency BISI BUCK ASSOCIATE DIRECTOR CAREER SERVICES [facility] ER ABD PAIN [id number] 03/03/2014 13:44:00 03/03/2014 17:01:00 DIS Emergency BISI BUCK APRN [facility] ER R SIDE LOWER ABD PAIN [id number] 11/28/2013 11:21:00 11/28/2013 23:59:59 CLS Outpatient BENTLEY SARABIA APRN [facility] RAD RT NIPPLE INVERTED, DISCOLORATION [id number] 10/24/2013 16:35:00 10/24/2013 16:58:00 DIS Emergency BUCKBISI APRN [facility] ER RASH [id number] 08/14/2013 10:40:00 08/14/2013 11:15:00 DIS Emergency VLADIMIR MARK DO [facility] ER SWOLLEN FINGER RING STUCK [id number] 11/23/2012 13:52:00 11/30/2012 10:52:00 DIS Out[facility] [id number] 01/24/2018 19:36:00 Document Registration [id number] 12/14/2017 19:34:00 Document Registration [id number] 03/21/2014 17:14:00 Document Registration [id number] 03/21/2014 17:14:00 Document Registration [id number] 03/21/2014 17:14:00 Document Registration [id number] 03/21/2014 17:14:00 Document Registration [id number] 06/20/2012 09:23:00 Document Registration [id number] 05/09/2012 07:52:00 Document Registration [id number] 12/11/2011 22:50:00 Document Registration [id number] 08/24/2011 22:14:00 Document Registration [id number] 20:37:00 Document Registration [id number] 09/19/2010 20:35:00 Document Registration [id number] 07/01/2010 23:57:00 Document Registration
[2018-01-24 21:00] VITALS: BP 157/98
[2018-01-24 21:15] VITALS: BP 120/68
[2018-01-24 21:30] VITALS: BP 90/52
[2018-01-24] MEDS ORDERED: ALPRAZolam 0.5 MG (XANAX) TAB PO ONE (21:30)
[2018-01-24 21:45] VITALS: BP_SYST 109; BP_SYST 79; BP_DIAS 45; BP_DIAS 62
[2018-01-24 22:00] VITALS: BP 98/53
[2018-01-24 23:00] VITALS: BP 106/54
[2018-01-25] VITALS (15 sets, daily range): BP systolic 82–148; BP diastolic 46–88
[2018-01-25] MEDS ORDERED: IBUPROFEN 600 MG (MOTRIN) TAB PO ONE ×2 (01:30→01:48)
[2018-01-25] MEDS ORDERED: ALPRAZolam 0.5 MG (XANAX) TAB ONE (01:47)
[2018-01-25] MEDS ORDERED: HALOPERIDOL 5 MG/ML (HALDOL) AMP ONE (01:48)
[2018-01-25] MEDS ORDERED: HALOPERIDOL 5 MG/ML (HALDOL) AMP IM ONE (02:00)
[2018-01-25 03:32] LABS: BASOPHILS % (AUTO) 0 % (0-10); EOSINOPHILS # (AUTO) 0.2 10^3/uL (0.0-0.3); EOSINOPHILS % (AUTO) 3 % (0-10); HEMATOCRIT 34 % (35-52); HEMOGLOBIN 11.5 G/DL (11.5-16.0); LYMPHOCYTES # (AUTO) 2.3 X 10^3 (1.0-4.0); LYMPHOCYTES % (AUTO) 39 % (12-44); MEAN CORPUSCULAR HEMOGLOBIN 30 PG (25-34); MEAN CORPUSCULAR HGB CONC 34 G/DL (32-36); MEAN CORPUSCULAR VOLUME 89 FL (80-99); MEAN PLATELET VOLUME 8.2 FL (7.4-10.4); MONOCYTES # (AUTO) 0.4 X 10^3 (0.0-1.0); MONOCYTES % (AUTO) 6 % (0-12); NEUTROPHILS # (AUTO) 3.1 X 10^3 (1.8-7.8); NEUTROPHILS % (AUTO) 51 % (42-75); PLATELET COUNT 271 10^3/uL (130-400); RED BLOOD COUNT 3.85 10^6/uL (4.35-5.85); RED CELL DISTRIBUTION WIDTH 14.5 % (10.0-14.5)
[2018-01-25 03:51] LABS: BUN/CREATININE RATIO 15; CALCIUM 9.3 MG/DL (8.5-10.1); CARBON DIOXIDE 20 MMOL/L (21-32); CHLORIDE 108 MMOL/L (98-107); CREATININE SERUM 0.82 MG/DL (0.60-1.30); GFR ESTIMATED > 60; GLUCOSE 88 MG/DL (70-105); MAGNESIUM 2.3 MG/DL (1.8-2.4); PHOSPHORUS 4.5 MG/DL (2.3-4.7); SODIUM 143 MMOL/L (135-145)
[2018-01-25] MEDS ORDERED: PROP40TA5 PO (09:27)
[2018-01-25] MEDS ORDERED: ARIP10TA17 PO (09:27)
[2018-01-25] MEDS ORDERED: LOVA40TA2 PO (09:27)
[2018-01-25] MEDS ORDERED: TRAZ-190 PO (09:27)
[2018-01-25] MEDS ORDERED: FLUT16SP22 NS (09:33)
[2018-01-25] MEDS ORDERED: OMEP40CA36 PO (09:33)
[2018-01-25] MEDS ORDERED: CLOT15CR6 TOP (09:33)
--- NOTE | 2018-01-25 11:06 | History & Physicial (CHS) ---
RUMA MARINELLI MEDICAL STUDENT 01/25/18 11:06am: HPI History of Present Illness: Pt is 57 yo f w/ a hx of anxiety, depression, and psychiatric illness w/ previous hospitalization who presented to ED via EMS yesterday evening for EtOH intoxication and suicidal ideation. When asked this morning, the pt states she drank about a 6 pack yesterday while she was at a green party for a friend's birthday. She states she is an occasional drinker and usually only has alcohol on special occasions or every few weeks. She denies tobacco or other drug abuse. This morning she is still having auditory hallucinations of voices telling her to kill herself and she still feels suicidal. She does not have a specific plan to kill herself. She denies hearing voices like this in the past. She denies homicidal intent. In her medication record is a script from Dr. Morales in 2017 for Levothyroxine. The pt states that her Levothyroxine was discontinued about a year ago and she has not had her TSH checked in a while. Source: patient Exam Limitations: no limitations Date seen by provider: Jan 25, 2018 Time Seen by Provider: 08:11 Attending Physician Brionna Harley MD PCP Denisa Ochoa DO Consult Date of Admission Jan 24, 2018 at 19:57 Home Medications Home Medications Reviewed patient Home Medication Reconciliation performed by pharmacy medication reconciliations ct scan technician and/or nursing. Patients Allergies have been reviewed. Allergies Coded Allergies: Penicillins (Verified Allergy, Unknown, 08/20/15) tuberculin, purified protein deriva (Verified Adverse Reaction, Mild, 08/19) [id number] Hx Patient Social History Marrital Status: Alcohol Use: Occasionally Uses Recreational Drug Use: No Smoking Status: Never a Smoker Recent Foreign Travel: No Contact w/other who traveled: No Recent Hopitalizations: No Recent Infectious Disease Expo: No Physical Abuse Screen: No Sexual Abuse: No Immunizations Up To Date Tetanus Booster (TDap): Unknown Date of Pneumonia Vaccine: Feb 01, 2012 Date of Influenza Vaccine: Feb 01, 2016 Past Medical History COPD Family Medical History Significant Family History: No Pertinent Family Hx Family History: Congenital heart disease G8 SISTER (HOLE IN HEART ) Neoplasm 19 MOTHER (STOMACH ) G8 BROTHER (STOMACH) Review of Systems ([facility]) Constitutional: No chills, No diaphoresis EENTM: No ear pain, No blurred vision Respiratory: No cough, No wheezing Cardiovascular: No chest pain, No edema, No palpitations Gastrointestinal: abdominal pain; No constipation, No diarrhea Genitourinary: No dysuria; frequency Skin: No change in color, No rash Psychiatric/Neurological: Anxiety, Depressed, Headache; Denies Tremors; Other ( auditory hallucinations, SI) Reviewed Test Results Reviewed Test Results Lab Laboratory Tests Test 01/24/18 19:18 01/24/18 19:24 01/25/18 03:10 Range/Units Urine Color YELLOW Urine Clarity CLEAR Urine pH 6.5 5-9 Urine Specific [place] 1.010 L 1.016-1.022 Urine Protein NEGATIVE NEGATIVE Urine Glucose (UA) NEGATIVE NEGATIVE Urine Ketones NEGATIVE NEGATIVE Urine Nitrite NEGATIVE NEGATIVE Urine Bilirubin NEGATIVE NEGATIVE Urine Urobilinogen NORMAL NORMAL MG/DL Urine Leukocyte Esterase 1+ H NEGATIVE Urine RBC (Auto) NEGATIVE NEGATIVE Urine RBC NONE /HPF Urine WBC 0-2 /HPF Urine Squamous Epithelial Cells 0-2 /HPF Urine Crystals NONE /LPF Urine Bacteria NONE /HPF Urine Casts NONE /LPF Urine Mucus NEGATIVE /LPF Urine Culture Indicated NO Urine Opiates Screen NEGATIVE NEGATIVE Urine Oxycodone Screen NEGATIVE NEGATIVE Urine Methadone Screen NEGATIVE NEGATIVE Urine Propoxyphene Screen NEGATIVE NEGATIVE Urine Barbiturates Screen NEGATIVE NEGATIVE Ur Tricyclic Antidepressants Screen NEGATIVE NEGATIVE Urine Phencyclidine Screen NEGATIVE NEGATIVE Urine Amphetamines Screen NEGATIVE NEGATIVE Urine Methamphetamines Screen NEGATIVE NEGATIVE Urine Benzodiazepines Screen NEGATIVE NEGATIVE Urine Cocaine Screen NEGATIVE NEGATIVE Urine Cannabinoids Screen NEGATIVE NEGATIVE White Blood Count 7.9 6.0 4.3-11.0 10^3/uL Red Blood Count 4.04 L 3.85 L 4.35-5.85 10^6/uL Hemoglobin 12.4 11.5 11.5-16.0 G/DL Hematocrit 35 34 L 35-52 % Mean Corpuscular Volume 88 89 80-99 FL Mean Corpuscular Hemoglobin 31 30 25-34 PG Mean Corpuscular Hemoglobin Concent 35 34 32-36 G/DL Red Cell Distribution Width 13.9 14.5 10.0-14.5 % Platelet Count 282 271 130-400 10^3/uL Mean Platelet Volume 8.3 8.2 7.4-10.4 FL Neutrophils (%) (Auto) 55 51 42-75 % Lymphocytes (%) (Auto) 38 39 12-44 % Monocytes (%) (Auto) 4 6 0-12 % Eosinophils (%) (Auto) 3 3 0-10 % Basophils (%) (Auto) 1 0 0-10 % Neutrophils # (Auto) 4.3 3.1 1.8-7.8 X 10^3 Lymphocytes # (Auto) 3.0 2.3 1.0-4.0 X 10^3 Monocytes # (Auto) 0.3 0.4 0.0-1.0 X 10^3 Eosinophils # (Auto) 0.3 0.2 0.0-0.3 10^3/uL Basophils # (Auto) 0.0 0.0 0.0-0.1 10^3/uL Sodium Level 141 143 135-145 MMOL/L Potassium Level 4.2 4.0 3.6-5.0 MMOL/L Chloride Level 106 108 H 98-107 MMOL/L Carbon Dioxide Level 21 20 L 21-32 MMOL/L Anion Gap 14 15 H 5-14 MMOL/L Blood Urea Nitrogen 12 12 7-18 MG/DL Creatinine 0.82 0.82 0.60-1.30 MG/DL Estimat Glomerular Filtration Rate > 60 > 60 BUN/Creatinine Ratio 15 15 Glucose Level 116 H 88 70-105 MG/DL Calcium Level 9.8 9.3 8.5-10.1 MG/DL Corrected Calcium 8.5-10.1 MG/DL Total Bilirubin 0.3 0.1-1.0 MG/DL Aspartate Amino Transf (AST/SGOT) 15 5-34 U/L Alanine Aminotransferase (ALT/SGPT) 16 0-55 U/L Alkaline Phosphatase 57 40-136 U/L Total Protein 8.2 6.4-8.2 GM/DL Albumin 4.6 H 3.2-4.5 GM/DL Salicylates Level < 5.0 L 5.0-20.0 MG/DL Acetaminophen Level < 10 L 10-30 UG/ML Serum Alcohol 190 H <10 MG/DL Phosphorus Level 4.5 2.3-4.7 MG/DL Magnesium Level 2.3 1.8-2.4 MG/DL Physical Exam-([facility]) Physical Exam Vital Signs VS - Last 72 Hours, by Label 01/24/18 01/24/18 01/24/18 01/24/18 18:45 20:40 20:48 21:00 Temp 98.1 97.9 97.9 Pulse 86 71 77 Resp 18 14 15 B/P (MAP) 168/99 (122) 151/81 157/98 (117) Pulse Ox 98 96 99 O2 Delivery Room Air Nasal Cannula Nasal Cannula O2 Flow Rate 2.00 2.00 01/24/18 01/24/18 01/24/18 01/24/18 21:04 21:15 21:30 21:45 Pulse 77 75 68 57 Resp 15 15 18 B/P (MAP) 120/68 (85) 90/52 (65) 109/62 (78) Pulse Ox 98 97 97 O2 Delivery Nasal Cannula Nasal Cannula Nasal Cannula O2 Flow Rate 2.00 2.00 2.00 01/24/18 01/24/18 01/25/18 01/25/18 22:00 23:00 00:00 00:00 Temp 98.8 Pulse 60 59 65 Resp 16 15 16 B/P (MAP) 98/53 (68) 106/54 (71) 82/51 (61) Pulse Ox 97 98 96 O2 Delivery Nasal Cannula Nasal Cannula Nasal Cannula O2 Flow Rate 2.00 2.00 2.00 01/25/18 01/25/18 01/25/18 01/25/18 00:00 01:00 02:00 02:07 Pulse 77 79 77 Resp 23 22 B/P (MAP) 141/85 (103) 148/85 (106) Pulse Ox 96 98 97 O2 Delivery Nasal Cannula Nasal Cannula Nasal Cannula O2 Flow Rate 2.00 2.00 2.00 01/25/18 01/25/18 01/25/18 01/25/18 03:00 04:00 04:00 04:00 Temp 98.6 Pulse 70 69 Resp 17 19 B/P (MAP) 110/49 (69) 103/54 (70) Pulse Ox 96 97 96 O2 Delivery Nasal Cannula Nasal Cannula Nasal Cannula O2 Flow Rate 2.00 2.00 2.00 01/25/18 01/25/18 01/25/18 01/25/18 05:00 06:00 07:00 07:51 Pulse 67 70 64 80 Resp 18 13 18 B/P (MAP) 98/46 (63) 116/65 (82) 112/70 (84) Pulse Ox 96 98 97 O2 Delivery Nasal Cannula Nasal Cannula Nasal Cannula O2 Flow Rate 2.00 2.00 2.00 01/25/18 01/25/18 01/25/18 08:55 08:55 09:10 Temp 97.9 Pulse Ox 97 97 O2 Delivery Nasal Cannula Nasal Cannula Nasal Cannula O2 Flow Rate 2.00 2.00 2.00 Capillary Refill : Less Than 3 Seconds General Appearance: WD/WN, mild distress Eyes: Bilateral Eye PERRL, Bilateral Eye EOMI HEENT: No scleral icterus (R), No scleral icterus (L) Neck: non-tender, full range of motion, supple Respiratory: chest non-tender, lungs clear, normal breath sounds, no respiratory distress Cardiovascular: regular rate, rhythm, no edema, no murmur Gastrointestinal: normal bowel sounds, soft, no organomegaly, tenderness (Mild , diffuse lower abdomen) Extremities: normal range of motion, no pedal edema, normal capillary refill Neurologic/Psychiatric: no motor/sensory deficits, alert, oriented x 3 Skin: warm/dry, cyanosis; No jaundice Lymphatic: no adenopathy Assessment/Plan Assessment/Plan Admission Dx EtOH intoxication SI Admission Status: Observation (1) Alcohol intoxication Status: Acute Assessment & Plan: Pt answering questions and sobering appropriately. CBC, CMP, Mg, Phos, UA unremarkable Urine tox screen and Salicylate and Acetaminophen neg. Can recheck blood alcohol level if required by admitting inpatient psychiatric service, but otherwise she is cleared medically for D/C. Qualifiers: Qualified Codes: F10.920 - Alcohol use, unspecified with intoxication, uncomplicated (2) Suicidal ideations Status: Acute Assessment & Plan: With her hx of treatment w/ Levothyroxine in the recent past , will check TSH to r/o hypothyroidism as possible contributor to SI Pt w/ 1:1 sitter in ICU as precaution Awaiting placement at psychiatric facility today or tomorrow (3) Anxiety Status: Chronic Assessment & Plan: Managed by her PCP Joie Molina at [facility] Will continue pt on her home meds, Sertraline and Trazodone (4) Mood disorder Status: Chronic Assessment & Plan: Managed by her PCP Joie Molina at [facility] Will continue pt on her home meds, Sertraline and Trazodone Clinical Quality Measures DVT/VTE Risk/Contraindication: Risk Factor Score Per Nursin RFS Level Per Nursing on Admit: 4+=Very High Copy Copies To 1: [facility], BRIONNA Skaggs MD 01/25/18 8:19pm: HPI History of Present Illness: Reviewed HPI with patient and agree with above documentation Source: patient Exam Limitations: no limitations Home Medications Allergies Coded Allergies: Penicillins (Verified Allergy, Unknown, 08/20/15) tuberculin, purified protein deriva (Verified Adverse Reaction, Mild, 08/19) [id number] Hx Patient Social History Living Status: Living at home with Past Medical History Hypothyroidism Schizoaffective D/o Family Medical History Family History: Congenital heart disease G8 SISTER (HOLE IN HEART ) Neoplasm 19 MOTHER (STOMACH ) G8 BROTHER (STOMACH) Review of Systems ([facility]) Constitutional: no symptoms reported EENTM: no symptoms reported Respiratory: no symptoms reported Cardiovascular: no symptoms reported Gastrointestinal: no symptoms reported Genitourinary: no symptoms reported : No Musculoskeletal: no symptoms reported Skin: no symptoms reported Psychiatric/Neurological: Anxiety, Depressed, Headache Physical Exam-([facility]) Physical Exam General Appearance: WD/WN Neck: non-tender, full range of motion, supple Respiratory: chest non-tender, lungs clear, normal breath sounds, no respiratory distress Cardiovascular: normal peripheral pulses, regular rate, rhythm, no edema, no murmur Gastrointestinal: normal bowel sounds, soft Back: no CVA tenderness, no vertebral tenderness Extremities: normal range of motion, no pedal edema, no calf tenderness, normal capillary refill 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 Patient is stable medically Qualifiers: Qualified Codes: F10.920 - Alcohol use, unspecified with intoxication, uncomplicated (2) Suicidal ideations Status: Acute Assessment & Plan: Continues to have visual and auditory hallucinations that are telling her to harm herself (3) Anxiety Status: Chronic Assessment & Plan: Managed by her PCP Joie Molina at [facility] Will continue pt on her home meds, Sertraline and Trazodone (4) Mood disorder Status: Chronic Assessment & Plan: Managed by her PCP Joie Molina at [facility] Will continue pt on her home meds, Sertraline and Trazodone RUMA MARINELLI MEDICAL STUDENT Jan 25, 2018 11:06 am BRIONNA HARLEY MD Jan 25, 2018 8:19 pm
[2018-01-25] MEDS ORDERED: IBUPROFEN 600 MG (MOTRIN) TAB PO PRN (12:45)
[2018-01-25] MEDS ORDERED: FLU QUADRIvalent (5+ YOA) 2018-2019 (AFLURIA) 0.5 ML IM ONE (14:45)
--- NOTE | 2018-01-25 20:23 | Discharge Summary ---
Diagnosis/Chief Complaint Date of Admission Jan 24, 2018 at 7:57 pm Date of Discharge 01/25/2018 Admission Diagnosis Admission Diagnosis EtOH intoxication Suicidal Ideation Auditory and Visual Hallucinations Discharge Diagnosis See Above Chief Complaint/HPI Chief Complaint/HPI Reviewed HPI with patient and agree with above documentation Discharge Summary-Simple/Stand Consultations Discharge Physical Examination Allergies: Coded Allergies: Penicillins (Verified Allergy, Unknown, 08/20/15) tuberculin, purified protein deriva (Verified Adverse Reaction, Mild, 08/19) Vitals & I&Os Vital Sign - Last 12Hours Date Time Temp Pulse Resp B/P (MAP) Pulse Ox O2 Delivery O2 Flow Rate FiO2 01/25/18 18:00 71 19 121/79 (93) 95 Room Air 01/25/18 16:55 98.2 01/25/18 16:55 2.00 Intake and Output 01/25/18 00:00 Intake Total 0 ml Balance 0 ml General Appearance: Alert, Oriented X3, Cooperative HEENT: Mucous Memb Moist/[place] Respiratory: Clear to Auscultation, Normal Air Movement Cardiovascular: Regular Rate, No Murmurs Abdominal: Normal Bowel Sounds, Soft, No Tenderness, No Hepatosplenomegaly, No Masses Extremities: No Edema, No Tenderness/Swelling Neuro: Normal Speech Psych/Mental Status: Other (SI, Visual and Auditory hallucinations) Hospital Course See final discharge diagnosis. Discussion & Recommendations 57 yo F with known psych history that presented to ED with EtOH intoxication and suicidal thoughts. Patient is not sure if she is wanting to go into placement but knows that it is likely the best options for her. She continues to have thoughts of wanting to harm herself and states that she is hearing voices telling her to hurt herself. She does not have a plan. Call and discussed case with [facility] and they have accepted the patient for direct transfer of care. Patient medically stable for transfer. Discharge Condition at discharge Stable Instructions to patient/family Please see electronic discharge instructions given to patient. Discharge Medications Reviewed and agree with Discharge Medication list on patient's Discharge Instruction sheet Clinical Quality Measures DVT/VTE Risk/Contraindication: Risk Factor Score Per Nursin RFS Level Per Nursing on Admit: 4+=Very High Copy Copies To 1: Joie GREEN HOLLY R MD Jan 25, 2018 8:23 pm
== END 2018-01-25 21:19 ==
LOC: EDUNIT# 18:41 → ER 18:42 → UNDOADMOB 19:57 → ICU 19:57 → UNDODISOB 01-25 21:10
PROVIDERS: ADMIT Family Medicine; ATTEND Family Medicine
DX: R45.851 Suicidal ideations (principal); F10.920 Alcohol use, unspecified with intoxication, uncomplicated; F41.9 Anxiety disorder, unspecified; F32.9 Major depressive disorder, single episode, unspecified; E03.9 Hypothyroidism, unspecified; F25.9 Schizoaffective disorder, unspecified
CPT/HCPCS: 36415; 80048; 80053; 80306; 80320; 80329; 81000; 83735; 84100; 85025; 87081; 90686; 93005; G0378

== ENCOUNTER 2018-06-24 14:28 | Emergency (ER) | payer MEDICAID ==
[~2018-06-24] VITALS: Ht 157.5 cm; Wt 76.2 kg
[~2018-06-24 14:28] MED LIST changes: +ARIP10TA17 PO; +CLOT15CR6 TOP; +LOVA40TA2 PO; +TRAZ-190 PO
[2018-06-24] MEDS ORDERED: KETOROLAC 30 MG/ML VIAL IVP STA (14:37)
[2018-06-24] MEDS ORDERED: ACETAMINOPHEN 500 MG TAB (TYLENOL) PO STA (14:37)
[2018-06-24] MEDS ORDERED: NS IV 1000 ML 1,000 ML IV STA (14:37)
[2018-06-24] MEDS ORDERED: ONDANSETRON 4 MG/2 ML (SDV) Z0FRAN IVP ONE (14:45)
--- NOTE | 2018-06-24 14:58 | ED General ---
General Stated Complaint: N/V/D;COUGH Source of Information: Patient, EMS Exam Limitations: No Limitations (ZOLTAN HARTMAN STUDENT) History of Present Illness Date Seen by Provider: Jun 24, 2018 Time Seen by Provider: 14:46 Initial Comments Patient arrived via EMS for fever, cough, nausea and vomiting of 3 days. She stated that she started not feeling well a few days ago and has progressively gotten worse. She had a fever of 102 yesterday and today. Her got her some cough medicine yesterday, but this did not help. She has not taken anything for fever. She has not had any sick contacts. Along with the fever, she has had productive cough and headache for the three days. She also has had nausea, vomiting, and diarrhea. She has not been able to tolerate food for the past few days and has had very little to drink. Timing/Duration: 2-3 Days Severity: Severe Modifying Factors: worse with Eating Associated Systoms: Chest Pain (with coughing), Cough (productive of sputum), Fever/Chills (up to 102 yesterday and this morning), Headaches, Nausea/Vomiting , Shortness of Air (ZOLTAN HARTMAN STUDENT) Timing/Duration: 2-3 Days Severity: Moderate Associated Systoms: Chest Pain (with coughing), Cough (productive of sputum), Fever/Chills (up to 102 yesterday and this morning), Nausea/Vomiting ( posttussive), Shortness of Air (MARY ALCALA MD) Allergies and Home Medications Allergies Coded Allergies: Penicillins (Verified Allergy, Unknown, 08/20/15) tuberculin, purified protein deriva (Verified Adverse Reaction, Mild, 08/19) Home Medications Albuterol Sulfate 8.5 Gm Hfa.aer.ad, 2 PUFF INH Q6H PRN for SHORTNESS OF BREATH, (Reported) Aripiprazole 10 Mg Tablet, 10 MG PO DAILY, (Reported) Cetirizine HCl 10 Mg Tablet, 10 MG PO DAILY, (Reported) Clotrimazole/Betamethasone Dip 15 Gm Cream..g., TOP DAILY, (Reported) Dicyclomine HCl 20 Mg Tablet, 20 MG PO BID, (Reported) Fluticasone Propionate 16 Gm [place].susp, 2 SPRAYS NS DAILY, (Reported) Lovastatin 40 Mg Tablet, 40 MG PO DAILY, (Reported) Montelukast Sodium 10 Mg Tablet, 10 MG PO DAILY, (Reported) Omeprazole 40 Mg Capsule.dr, 40 MG PO DAILY PRN for HEARTBURN, (Reported) Propranolol HCl 40 Mg Tablet, 40 MG PO BID, (Reported) Sertraline HCl 50 Mg Tablet, 50 MG PO DAILY, (Reported) Trazodone HCl 100 Mg Tablet, 100 MG PO HS, (Reported) Patient Home Medication List Home Medication List Reviewed: Yes (ZOLTAN HARTMAN) Home Medication List Reviewed: Yes (MARY ALCALA MD) Review of Systems Review of Systems Constitutional: chills, fever (up to 102), malaise EENTM: hoarseness, nose congestion; No throat pain Respiratory: cough; No hemoptysis; phlegm, short of breath; No wheezing Cardiovascular: chest pain (with coughing); No edema, No palpitations Gastrointestinal: No abdominal pain; diarrhea, loss of appetite, nausea, vomiting Genitourinary: decreased output; No dysuria, No frequency, No pain Musculoskeletal: no symptoms reported Skin: No pruritus, No rash Psychiatric/Neurological: Headache; Denies Numbness, Denies Tingling, Denies Weakness (ZOLTAN HARTMAN) Constitutional: chills, fever (up to 102) Respiratory: cough, phlegm, short of breath Gastrointestinal: see HPI Genitourinary: see HPI (MARY ALCALA MD) All Other Systems Reviewed Negative Unless Noted: Yes (MARY ALCALA MD) Past Wdhwtue-Lsqxlw-Wrkofl Hx Past Med/Social Hx: Reviewed Nursing Past Med/Soc Hx (ZOLTAN HARTMAN) Past Med/Social Hx: Reviewed Nursing Past Med/Soc Hx (MARY ALCALA MD) Patient Social History Alcohol Use: Denies Use Recreational Drug Use: No Smoking Status: Never a Smoker Recent Hopitalizations: No (ZOLTAN HARTMAN) Immunizations Up To Date Tetanus Booster (TDap): Unknown Date of Pneumonia Vaccine: Feb 01, 2012 Date of Influenza Vaccine: Feb 01, 2016 (ZOLTAN HARTMAN) Seasonal Allergies Seasonal Allergies: No (JENNIFER-BIECHLER,ZOLTAN K STUDENT) Past Medical History Surgeries: Yes (X2 C-SECT,TUBAL LIG.,APPY) Appendectomy, Section, Gallbladder, 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, Oophorectomy, 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 Respiratory: Yes Asthma, Sleep Apnea, COPD Currently Using CPAP: Yes Currently Using BIPAP: No Cardiac: Yes Hypertension, Syncope Neurological: Yes Headaches /Migraines, Seizure Disorder, Vertigo Reproductive Disorders: No Female Reproductive Disorders: Denies 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: 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, 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 Sexually Transmitted Disease: No HIV/AIDS: No Genitourinary: No UTI-Chronic Gastrointestinal: Yes (rectal pain and bleeding) Gastroesophageal Reflux, Ulcer Musculoskeletal: Yes Chronic Back Pain Endocrine: Yes Diabetes, Non-Insulin dep Tinnitis Loss of Vision: Denies Hearing Impairment: Denies Cancer: No Psychosocial: Yes (EXTENSIVE PSYCH ISSUES, MULTIPLE PSYCH ADMITS, INCLUDING [place]) Anxiety, Suicide Attempts, Depression Integumentary: No Blood Disorders: No Adverse Reaction/Blood Tranf: No (ZOLTAN HARTMAN) Family Medical History Reviewed Nursing Family Hx (ZOLTAN HARTMAN) Reviewed Nursing Family Hx (MARY ALCALA MD) Congenital heart disease G8 SISTER (HOLE IN HEART ) Neoplasm 19 MOTHER (STOMACH ) G8 BROTHER (STOMACH) No Pertinent Family Hx (ZOLTAN HARTMAN) Physical Exam-Suspected Sepsis Physical Exam Vital Signs Vital Signs - First Documented 06/24/18 06/24/18 15:02 16:33 Temp 100.4 Pulse 120 Resp 18 B/P (MAP) 168/127 (141) Pulse Ox 93 O2 Delivery Room Air (MARY ALCALA MD) Vital Signs Capillary Refill : (ZOLTAN HARTMAN STUDENT) Height, Weight, BMI Height: 5'0" Weight: 198lbs. 8.0oz. [id number]; 25.6 BMI Method:Estimated General Appearance: WD/WN, Moderate Distress Eyes: Bilateral Eye Normal Inspection, Bilateral Eye PERRL, Bilateral Eye EOMI HEENT: PERRL/EOMI, TMs Normal, Other (dry mucous membranes) Neck: Full Range of Motion, Normal Inspection, Non Tender, Supple Respiratory: Chest Non Tender, Respiratory Distress, Wheezing, Other (coarse cough) Cardiovascular: No Edema, No JVD, No Murmur, Tachycardia Gastrointestinal: Normal Bowel Sounds, Non Tender, Soft Back: Normal Inspection, No CVA Tenderness, No Vertebral Tenderness Extremity: Normal Inspection, Normal Range of Motion, Non Tender, No Calf Tenderness, No Pedal Edema Neurologic/Psychiatric: Alert, Oriented x3, Normal Mood/Affect, supervisor malted milk II-XII Norm as Tested Skin: normal color, damp (ZOLTAN HARTMAN STUDENT) General Appearance: WD/WN, Moderate Distress (coughing) HEENT: PERRL/EOMI, TMs Normal, Other (dry mucous membranes) Neck: Normal Inspection, Non Tender Respiratory: Chest Non Tender, Wheezing, Other (coarse cough. Persistent cough) Cardiovascular: No Edema, No Murmur, Tachycardia Gastrointestinal: Non Tender, Soft Back: Normal Inspection, No CVA Tenderness, No Vertebral Tenderness Extremity: Normal Range of Motion, Non Tender Neurologic/Psychiatric: Alert, Oriented x3, Normal Mood/Affect Skin: normal color, damp (MARY ALCALA MD) Focused Exam Lactate Level 06/24/18 15:10: Lactic Acid Level 3.09*H 06/24/18 16:58: Lactic Acid Level 1.02 (MARY ALCALA MD) Lactic Acid Level Laboratory Tests Test 06/24/18 15:10 06/24/18 16:58 Lactic Acid Level 3.09 MMOL/L (0.50-2.00) *H 1.02 MMOL/L (0.50-2.00) (MARY ALCALA MD) Progress/Results/Core Measures Suspected Sepsis SIRS Temperature: Pulse: Respiratory Rate: Laboratory Tests 06/24/18 14:50: White Blood Count 7.6 Blood Pressure / Mean: 06/24/18 15:10: Lactic Acid Level 3.09*H Laboratory Tests 06/24/18 14:50: Creatinine 1.14, Platelet Count 186, Total Bilirubin 0.3 (ZOLTAN HARTMAN STUDENT) Results/Orders Lab Results Laboratory Tests Test 06/24/18 14:50 06/24/18 15:10 06/24/18 15:49 06/24/18 16:58 Range/Units White Blood Count 7.6 4.3-11.0 10^3/uL Red Blood Count 4.94 4.35-5.85 10^6/uL Hemoglobin 14.5 11.5-16.0 G/DL Hematocrit 44 35-52 % Mean Corpuscular Volume 89 80-99 FL Mean Corpuscular Hemoglobin 29 25-34 PG Mean Corpuscular Hemoglobin Concent 33 32-36 G/DL Red Cell Distribution Width 14.3 10.0-14.5 % Platelet Count 186 130-400 10^3/uL Mean Platelet Volume 9.0 7.4-10.4 FL Neutrophils (%) (Auto) 70 42-75 % Lymphocytes (%) (Auto) 21 12-44 % Monocytes (%) (Auto) 8 0-12 % Eosinophils (%) (Auto) 0 0-10 % Basophils (%) (Auto) 0 0-10 % Neutrophils # (Auto) 5.3 1.8-7.8 X 10^3 Lymphocytes # (Auto) 1.6 1.0-4.0 X 10^3 Monocytes # (Auto) 0.6 0.0-1.0 X 10^3 Eosinophils # (Auto) 0.0 0.0-0.3 10^3/uL Basophils # (Auto) 0.0 0.0-0.1 10^3/uL Sodium Level 140 135-145 MMOL/L Potassium Level 4.0 3.6-5.0 MMOL/L Chloride Level 104 98-107 MMOL/L Carbon Dioxide Level 21 21-32 MMOL/L Anion Gap 15 H 5-14 MMOL/L Blood Urea Nitrogen 17 7-18 MG/DL Creatinine 1.14 0.60-1.30 MG/DL Estimat Glomerular Filtration Rate 49 BUN/Creatinine Ratio 15 Glucose Level 129 H 70-105 MG/DL Calcium Level 10.6 H 8.5-10.1 MG/DL Corrected Calcium 8.5-10.1 MG/DL Total Bilirubin 0.3 0.1-1.0 MG/DL Aspartate Amino Transf (AST/SGOT) 35 H 5-34 U/L Alanine Aminotransferase (ALT/SGPT) 35 0-55 U/L Alkaline Phosphatase 59 40-136 U/L Total Protein 9.4 H 6.4-8.2 GM/DL Albumin 5.2 H 3.2-4.5 GM/DL Lactic Acid Level 3.09 *H 1.02 0.50-2.00 MMOL/L Urine Color YELLOW Urine Clarity CLOUDY H Urine pH 5 5-9 Urine Specific [place] 1.025 H 1.016-1.022 Urine Protein 3+ H NEGATIVE Urine Glucose (UA) NEGATIVE NEGATIVE Urine Ketones NEGATIVE NEGATIVE Urine Nitrite NEGATIVE NEGATIVE Urine Bilirubin NEGATIVE NEGATIVE Urine Urobilinogen NORMAL NORMAL MG/DL Urine Leukocyte Esterase 2+ H NEGATIVE Urine RBC (Auto) 2+ H NEGATIVE Urine RBC NONE /HPF Urine WBC 2-5 /HPF Urine Squamous Epithelial Cells 5-10 /HPF Urine Crystals PRESENT H /LPF Urine Amorphous Sediment LARGE RAMIRO URATES H /LPF Urine Bacteria MODERATE H /HPF Urine Casts NONE /LPF Urine Mucus SMALL H /LPF Urine Culture Indicated YES (MARY ALCALA MD) Micro Results Microbiology 06/24/18 Influenza Types A,B Antigen (ELIE) - Final, Complete (MARY ALCALA MD) My Orders Orders - MARY ALCALA MD Cbc With Automated Diff (06/24/18 14:37) Comprehensive Metabolic Panel (06/24/18 14:37) Ua Culture If Indicated (06/24/18 14:37) Influenza A And B Antigens (06/24/18 14:37) Ondansetron Injection (Zofran Injectio (06/24/18 14:45) Ns Iv 1000 Ml (Sodium Chloride 0.9%) (06/24/18 14:37) Saline Lock/Iv-Start (06/24/18 14:37) Acetaminophen Tablet (Tylenol Tablet) (06/24/18 14:37) Ketorolac Injection (Toradol Injection) (06/24/18 14:37) Promethazine/ Codeine Syrup (Phenergan W (06/24/18 15:00) Lactic Acid Analyzer (06/24/18 14:48) Blood Culture (06/24/18 14:48) Sputum Culture (06/24/18 14:48) Chest Pa/Lat (2 View) (06/24/18 15:22) Albuterol/Ipra Inhalation Soln (Duoneb I (06/24/18 16:15) Svn Small Volume Nebulizer (06/24/18 16:06) Ns Iv 1000 Ml (Sodium Chloride 0.9%) (06/24/18 16:07) Urine Culture (06/24/18 15:49) Prednisone Tablet (Deltasone Tablet) (06/24/18 17:00) (MARY ALCALA MD) Medications Given in ED Current Medications Medications Dose Ordered Sig/Anabel Route Start Time Stop Time Status Last Admin Dose Admin Albuterol/ Ipratropium 3 ml ONCE ONCE INH 06/24/18 16:15 06/24/18 16:16 DC 06/24/18 16:29 3 ML Ondansetron HCl 4 mg ONCE ONCE IVP 06/24/18 14:45 06/24/18 14:46 DC 06/24/18 14:58 4 MG Prednisone 40 mg ONCE ONCE PO 06/24/18 17:00 06/24/18 17:01 DC 06/24/18 17:00 40 MG Promethazine HCl/ Codeine 5 ml ONCE ONCE PO 06/24/18 15:00 06/24/18 15:01 DC 06/24/18 14:58 5 ML Sodium Chloride 1,000 ml @ 0 mls/hr Q0M ONCE IV 06/24/18 16:07 06/24/18 16:09 DC 06/24/18 16:23 0 MLS/HR (MARY ALCALA MD) Vital Signs/I&O 06/24/18 06/24/18 06/24/18 15:02 16:03 16:33 Temp 100.4 100.3 Pulse 120 110 Resp 18 18 B/P (MAP) 168/127 (141) 168/127 Pulse Ox 93 93 95 O2 Delivery Room Air (MARY ALCALA MD) Vital Signs/I&O Capillary Refill : (ZOLTAN HARTMAN STUDENT) Progress Note : Progress Note I have seen and evaluated the patient and agree with above except as indicated. I have directed the plan of care. Patient is here with persistent cough and vomiting with fever reported and noted. Arrives by EMS. IV, labs, UA, blood cultures and lactic acid ordered. Normal saline 1 L bolus. Lactic acid elevated which may be from the coughing and dehydration as well as labs and x-ray would otherwise not indicate a significant infection. Repeat normal saline 1 L bolus ordered. Duo neb ordered. 1700: Lactic acid pending. Prednisone 40 mg by mouth ordered for what appears to be COPD exacerbation. Patient does have increased mucus and sinus symptoms after talking with her now. We will go ahead and treat that. There is question of possible urinary tract infection although this may be contamination. Due to persistence of symptoms we will initiate outpatient treatment with Omnicef to cover both sinuses and potentially urine. Patient will need steroids as outpatient as well. She did get Phenergan with codeine for cough and that helped some. I will write a small prescription prescription for that as well. 1723: Repeat lactic acid 1.02. Overall improved. Discharged home with return precautions. Patient verbalize understanding instructions and agreement with plan. (MARY ALCALA MD) Diagnostic Imaging Diagonstic Imaging: Xray Plain Films/CT/US/NM/MRI: chest Comments [facility], [place] NAME: [facility] REC#: [id number] PT STATUS: REG ER : 1960 PHYSICIAN: MARY ALCALA MD ADMIT DATE: 06/24/18/ER Draft Date of Exam:06/24/18 CHEST PA/LAT (2 VIEW) INDICATION: Productive coughing x 3 days, fever, chest hurts when coughing EXAMINATION: PA and lateral views of the chest were obtained. COMPARISON: Study of 05/14/2017. FINDINGS: Heart size and pulmonary vascularity are within normal limits, and the lungs are clear, bilaterally. IMPRESSION: Unremarkable chest. Dictated on workstation # [id number] Dict: 06/24/18 1619 Trans: 06/24/18 1623 [facility] [id number] Interpreted by: HAL BHATIA MD Electronically signed by: (ZOLTAN HARTMAN STUDENT) Departure Impression Primary Impression: Upper respiratory infection Qualified Codes: J06.9 - Acute upper respiratory infection, unspecified Additional Impressions: Fever in adult Acute exacerbation of chronic bronchitis UTI (urinary tract infection) Qualified Codes: N30.00 - Acute cystitis without hematuria Disposition: HOME, SELF-CARE Condition: Improved Departure-Patient Inst. Decision time for Depature: 17:09 (MARY ALCALA MD) Referrals: ELVIA RUIZ DO (PCP) Primary Care Physician EDUARDO GRUBER (Family) Primary Care Physician Patient Instructions: Acute Bronchitis, Adult (DC), Fever, Adult (DC), Bacterial Upper Respiratory Infection, Adult (DC) Add. Discharge Instructions: Take medications as directed. You may take Tylenol/acetaminophen 1000 mg every 8 hours as needed for fever or pain. You may take ibuprofen 800 mg every 8 hours as needed for fever or pain. Plenty of fluids. Take other medications as directed. Follow-up with your Dr. in 2-3 days for recheck. Return for worsening , fever, vomiting, weakness, breathing problems or other concerns as needed. Scripts Promethazine HCl/Codeine (Prometh-Codein 6.25-10 mg/5 ml) 5 Ml Syrup 5 ML PO Q6H, #60 ML 0 Refills Prov: MARY ALCALA MD 06/24/18 Prednisone (Prednisone) 20 Mg Tab 40 MG PO DAILY, #10 TAB 0 Refills Prov: MARY ALCALA MD 06/24/18 Ondansetron (Ondansetron Odt) 4 Mg Tab.rapdis 4 MG PO Q6H PRN for NAUSEA/VOMITING, #8 TAB 0 Refills Prov: MARY ALCALA MD 06/24/18 Cefdinir (Cefdinir) 300 Mg Capsule 300 MG PO BID, #14 CAP 0 Refills Prov: MARY ALCALA MD 06/24/18 ZOLTAN HARTMAN Jun 24, 2018 14:58 MARY ALCALA MD Jun 24, 2018 17:08
--- OUTSIDE RECORDS SUMMARY | 2018-06-24 14:58 | XMS REPORT | Clinical Summary ---
Demographics Preferred Language Unknown Marital Status Unknown Caodaism Affiliation Unknown Race Unknown Ethnic Group Unknown Author Author [facility] Organization [facility] Address Unknown Phone Unavailable Care Team Providers Care Travel Money Advisor Name Role Phone PP Unavailable Allergies Not on File Medications Not on file Active Problems Not on file Social History Date Tobacco Use Types Packs/Day Years Used Never Assessed Sex Assigned at Date Recorded Not on file Industry Job Start Date Occupation Not on file Not on file Not on file Travel End Travel History Travel Start No recent travel history available. Plan of Treatment Health Maintenance Due Date Last Done Comments Hepatitis C Screening 1960 DTaP,Tdap,and Td Vaccines 1980 (1 - Tdap) CERVICAL CANCER SCREENING 1982 Breast Cancer 09/22/2011 Screening-Mammogram Colon Cancer Screening 09/22/2011 Zoster Recombinant 09/22/2011 Vaccine (RZV,Shingrix) (1 of 2 - [facility] 2 Dose Standard) Influenza Vaccine (#1) 2018 Results Not on filefrom Last 3 Months
--- OUTSIDE RECORDS SUMMARY | 2018-06-24 14:58 | XMS REPORT ---
Author Author EDUARDO GRUBER Organization [facility] Address [address] [place] [address] Care Team Providers Care Quality Control Tester Name Role Phone EDUARDO GRUBER Unavailable PROBLEMS Type Condition ICD9-CM Code VRA76-VS Code Onset Dates Condition Status SNOMED Code Problem Hypoxemia R09.02 Active 770633751 Problem Unspecified asthma, uncomplicated J45.909 Active 48241500 Problem Irritable bowel syndrome without diarrhea K58.9 Active 28050073 Problem Mixed hyperlipidemia E78.2 Active 947843278 Problem Asthma 493.90 Active 161460047 Problem Vaginitis N76.0 Active 43353775 Problem Headache R51 Active 57305892 Problem Severe episode of recurrent major depressive disorder, without psychotic features F33.2 Active 66268607 Problem Primary insomnia F51.01 Active 9190121 Problem Allergic rhinitis, unspecified allergic rhinitis type J30.9 Active 44688618 Problem Hypertension I10 Active 43763406 Problem Acquired hypothyroidism E03.9 Active 285375582 Problem Psychosis, unspecified psychosis type F29 Active 07208168 ALLERGIES No Information ENCOUNTERS Encounter Location Date Diagnosis [place] [id number] [place] [address] 82201- 7951 Jan, [facility] [id number] [place] [address] 29165- 6776 Jan, Primary insomnia F51.01 [facility] [id number] [place] [address] 55667- 3597 Jan, Severe episode of recurrent major depressive disorder, without psychotic features F33.2 ; Primary insomnia F51.01 ; Diarrhea, unspecified type R19.7 and Hypertension I10 [place] [id number] [place] [address] 62680- 2215 Jan, [place] [address] [place] [id number] [place] [address] 97143- 6841 Dec, [place] [address] [address] [id number] [place] [address] 82269- 5658 Dec, Bronchitis J40 and Herpes zoster without complication B02.9 [place] [address] [address] [id number] [place] [address] 81152- 3799 Oct, Primary insomnia F51.01 [place] [address] 27644- 1077 11 Oct, 2017 Forgetfulness R68.89 ; Psychosis, unspecified psychosis type F29 ; Acquired hypothyroidism E03.9 ; Mixed hyperlipidemia E78.2 ; Hypertension I10 ; Encounter for immunization Z23 and Breast cancer screening by mammogram Z12.31 [place] [id number] [place] [address] 40658- 4981 27 Aug, 2017 Onychomycosis B35.[address] [address]80- 1991 17 Aug, 2017 Mixed hyperlipidemia E78.2 [place] [id number] [place] [address] 94318- 5835 02 Aug, 2017 Scabies B86 ; Allergic rhinitis, unspecified allergic rhinitis type J30.9 ; Primary insomnia F51.01 ; Dysuria R30.0 ; Psychosis, unspecified psychosis type F29 ; Acquired hypothyroidism E03.9 and Hypertension I10 [place] [address] [address] [id number] [place] [address] 44809- 8050 May, Hypertension I10 [place] [address] [address] [id number] [place] [address] 83973- 6744 Apr, Unspecified asthma, uncomplicated J45.909 and Hypertension I10 [place] [address] [address] [id number] [place] [address] 29371- 4068 Mar, Hypertension I10 [place] [address] [place] [address] [id number] [place] [address] 50625- 9221 Mar, Hypertension I10 ; Psychosis, unspecified psychosis type F29 ; Forgetfulness R68.89 and Encounter for immunization Z23 [facility] [id number] [place] [address] 73648- 5804 Mar, [facility] [id number] [place] [address] 93998- 0256 Jan, [facility] [address] 13337- 2074 Jan, Psychosis, unspecified psychosis type F29 [facility] [address] 33927- 2697 Jan, [facility] [address] [id number] Dec, [facility] [address] 09325- 7540 Dec, Dizziness R42 [place] [address] 29740- 6684 Oct, Hypertension I10 ; Allergic rhinitis, unspecified allergic rhinitis type J30.9 and Flea bite of multiple sites W57.XXXA [facility] [address] [id number] [place] [address] 24113- 6733 August, [facility] [id number] [place] [address] 22479- 4913 August, Hypertension I10 ; Vertigo R42 ; Abdominal pain, acute, right lower quadrant R10.31 and Unspecified asthma, uncomplicated J45.909 [facility] [id number] [place] [address] 67537- 8325 Aug, Right lower quadrant abdominal pain R10.31 ; Irritable bowel syndrome without diarrhea K58.9 and Essential hypertension I10 [facility] [id number] [place] [address] 72712- 7650 Aug, [facility] [address] 94318- 1647 Jul, [facility] [id number] [place] [address]- 3024 Jul, [facility] [id number] [place] [address]- 3942 Jul, [facility] [id number] [place] [address]- 3528 Jul, [facility] [id number] [place] [address], [place] [address]- 2000 Jun, [facility] [id number] [place] [address]- 2762 Jun, Abdominal pain, acute, right lower quadrant R10.31 [facility] [id number] [place] [address]- 3830 Jun, [facility] [id number] [place] [address], [place] [address]- 6484 16 Jun, 2016 [facility] [id number] [place] [address]- 2600 Jun, [facility] [id number] [place] [address]- 9361 Apr, [facility] [id number] [place] [address]- 1369 Apr, Decubitus skin ulcer, stage I L89.91 [facility] [address] [address]- 8611 Mar, [facility] [id number] [address] Mar, Pressure ulcer, stage II L89.92 [facility] [address] [address]- 2908 13 Jan, 2016 Wound cellulitis L03.90 [facility] [address] [address]- 7608 06 Jan, 2016 [facility] [address] 14501- 4079 Dec, [facility] [address] 99884- 0909 Oct, Elevated blood pressure I10 and Allergic rhinitis, unspecified allergic rhinitis type J30.9 [facility] [address] 31909- 5592 August, [facility] [address] 05023- 8259 August, Right lower quadrant abdominal pain R10.31 and Essential hypertension I10 [place] [address] 79140- 6272 August, [facility] [address] 91751- 3245 August, [facility] [address] 16821- 2878 Aug, [facility] [address] 57005- 2947 Aug, Hypertension I10 and Rash R21 [place] [address] 91652- 8302 Aug, Gastritis K29.70 [place] [address] 64005- 6177 Aug, [facility] [address] 90007- 8595 Aug, [facility] [address] 07002- 3398 Aug, [place] [address] 17240- 6676 Aug, Rash R21 ; Vertigo R42 ; Gastritis K29.70 and Urination pain R30.9 [place] [address] 33770- 8339 Jul, [facility] [id number] [place] [address] 82802- 5956 Jul, [facility] [address] 18720- 7021 Jul, Hypertension I10 [place] [address] 68259- 4186 Jul, Headache R51 ; Hypertension I10 ; Vaginitis N76.0 and Hypoxemia R09.02 [facility] [address] 10472- 7443 May, [place] [address] 72376- 9241 Apr, [place] [address] 85888- 0210 Jan, Urinary tract infection, site unspecified N39.0 and Encounter for immunization Z23 [place] [address] [place] [id number] [place] [address] 50632- 4886 Jan, Allergic rhinitis 477.9 ; Abdominal pain 789.00 and Asthma 493.90 [place] [address] [place] [id number] [place] [address] 77389- 1333 Dec, [place] [address] [place] [id number] [place] [address] 25715- 5352 Dec, [place] [address] 16570- 8902 Dec, Scabies 133.0 and Snoring 786.09 [place] [address] [place] [id number] [place] [address] 32509- 1880 Oct, Scabies 133.0 [facility] [address] [place] [id number] [place] [address] 90573- 2618 Oct, [facility] [address] [address] [id number] [place] [address] 15302- 2009 Oct, [facility] [address] [address]- 0655 August, Vertigo 780.4 ; Anxiety 300.00 ; Rash 782.1 and Abscess 682.9 [facility] [id number] [place] [address]- 2546 August, [facility] [id number] [address]- 2006 Aug, [facility] [id number] [place] [address]- 0116 Aug, [facility] [id number] [place] [address], [place] [address]- 8246 Jul, [facility] [id number] [place] [address]- 1676 Jul, [facility] [id number] [place] [address] 71554- 4736 Jul, [facility] [address] [address]- 5390 Jul, [facility] [id number] [place] [address]- 4456 Jun, [facility] [address] [address]- 4166 Jun, [facility] [address] [address]- 1856 May, [facility] [id number] [address]- 2546 May, [facility] [address] [address]- 9766 Apr, [facility] [id number] [place] [address]- 2546 Apr, [facility] [id number] [address]- 2544 Apr, [facility] [place] [facility] [address] [id number] [place] [address]- 5958 Apr, [facility] [place] [facility] [address] [id number] [place] [address]- 2196 Mar, [facility] [place] [facility] [address] [id number] [place] [address]- 9790 Mar, [facility] [place] [facility] [address] [id number] [place] [address]- 3658 Jan, [facility] [place] [facility] [address] [id number] [place] [address]- 3571 Jan, [facility] [place] [facility] [address] [id number] [place] [address]- 1247 Jan, [facility] [place] [facility] [address] [id number] [place] [address]- 1531 Jan, [facility] [place] [facility] [address] [id number] [place] [address]- 3130 Jan, [facility] [place] [facility] [address] [id number] [place] [address]- 5095 Jan, [facility] [place] [facility] [address] [id number] [place] [address]- 5012 Dec, [facility] [place] [facility] [address] [id number] [place] [address]- 8697 Dec, [facility] [place] [facility] [address] [id number] [place] [address]- 2203 Oct, [facility] [place] [facility] [address] [id number] [place] [address]- 6076 Oct, [facility] [place] [facility] [address] [id number] [place] [address]- 9062 Oct, [facility] [place] [facility] [address] [id number] [place] [address]- 6144 Oct, [facility] [place] [facility] [address] [id number] [place] [address]- 9704 15 Oct, 2013 [facility] [place] [facility] [address] [id number] [place] [address]- 8669 Oct, [facility] [place] [facility] [address] [id number] [place] [address]- 4745 Oct, [facility] [place] [facility] [address] [id number] [place] [address]- 6469 Oct, [facility] [place] [facility] [address] [id number] [place] [address]- 5252 Oct, [facility] [place] [facility] [address] [id number] [place] [address]- 1398 August, [facility] [place] [facility] [address] [id number] [place] [address]- 4741 August, [facility] [place] [facility] [address] [id number] [place] [address]- 7110 Jun, [facility] [place] [facility] [address] [id number] [place] [address]- 7959 Jun, [facility] [place] [facility] [address] [id number] [place] [address]- 4928 Jun, [facility] [place] [facility] [address] [facility] [id number] [place] [address]- 4598 Jun, [facility] [place] [facility] [address] [facility] [id number] [place] [address]- 5489 Jun, [facility] [place] [facility] [address] [id number] [place] [address]- 1735 Apr, [facility] [place] [facility] [address] [id number] [place] 0633 Apr, [facility] [place] [facility] [address] [id number] [place] [address]- 8871 Apr, [facility] [place] [facility] [address] [id number] [place] [address]- 0401 Apr, [facility] [place] [facility] [address] [id number] [place] [address]- 0721 Apr, [facility] [address] [id number] [place] [address]- 0893 Apr, [facility] [address] [id number] [place] [address]- 5662 Apr, [facility] [place] [facility] [address] [id number] [place] [address]- 8923 Apr, [facility] [address] [id number] [place] [address]- 8506 Apr, [facility] [place] [facility] [address] [id number] [place] [address]- 6872 Apr, [facility] [address] [id number] [place] [address]- 3243 Apr, [facility] [address] [id number] [place] [address]- 1596 Apr, [facility] [address] [id number] [place] [address]- 2915 Dec, [facility] [address] [id number] [place] [address]- 0260 Dec, [facility] [place] [facility] [address] [id number] [place] [address]- 2548 Jul, [facility] [place] [facility] [address] [id number], [place] [address]- 2366 Jun, [facility] [place] [facility] [address] [id number] [place] [address]- 0409 Jun, [facility] [place] [facility] [address] [id number], [place] [address]- 2546 Oct, [facility] [place] [facility] [address] [id number], [place] [address]- 2547 Jul, [facility] [place] [facility] [address] [id number], [place] [address]- 2216 Apr, [facility] [address] [address]- 1646 Apr, [facility] [address] [address]- 9486 Apr, [facility] [id number] [address]- 1096 Mar, [facility] [id number] [place] [address] 16831- 7314 Jan, [facility] [id number] [place] [address] 96296- 3705 Jan, [facility] [id number] [place] [address] 10339- 8271 Jan, [facility] [id number] [place] [address] 70557- 2489 Dec, [facility] [id number] [place] [address] 47126- 2752 Oct, [facility] [id number] [place] [address] 41908- 6342 Jan, [facility] [address] [address]- 4015 Oct, [facility] [address], [place] [address]- 5602 Apr, IMMUNIZATIONS No Known Immunizations SOCIAL HISTORY Never Assessed REASON FOR VISIT Updated Med List PLAN OF CARE VITAL SIGNS MEDICATIONS Medication Instructions Dosage Frequency Start Date End Date Duration Status Aripiprazole 5 mg Orally at bedtime 1 tablet Jan, 30 day(s) Active Zoloft 100 mg Orally Once a day 1 tablet 24h Jan, 30 day(s) Active RESULTS No Results PROCEDURES No Known procedures INSTRUCTIONS MEDICATIONS ADMINISTERED No Known Medications MEDICAL (GENERAL) HISTORY Type Description Date Medical History asthma Medical History peptic ulcer disease Medical History back pain Medical History headache Medical History seizures; has been years since pt has had one Medical History TB in 1995 (?) Medical History 01/2018 ETOH intoxication and suicidal ideations ? auditory hallucinations Surgical History appendectomy Surgical History hysterectomy Surgical History section Surgical History cholecystectomy Hospitalization History 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 Hospitalization History Hospitalization History appendectomy Hospitalization History Intractable Vertigo, Hypertensive Urgency (pt was in observation) 08/20/15 Hospitalization History RLQ pain, [place], UTI, viral gastroenteritis 01/06/16 Hospitalization History Suicidal ideation with auditory hallucinations-[facility] [place] Hospitalization History PT was in [place] for two weeks following her stay 12/[address] [facility] [place] ER 12/[address] [facility] [place]- Suicidal 12/2017
--- OUTSIDE RECORDS SUMMARY | 2018-06-24 14:59 | XMS REPORT ---
Author Author EDUARDO GRUBER Organization [facility] Address [address] [place] [address] Care Team Providers Care Construction Driller Name Role Phone EDUARDO GRUBER Unavailable PROBLEMS Type Condition ICD9-CM Code HFV74-YT Code Onset Dates Condition Status SNOMED Code Problem Headache R51 Active 74091371 Problem Irritable bowel syndrome without diarrhea K58.9 Active 15145991 Problem Hypoxemia R09.02 Active 819774544 Problem Mixed hyperlipidemia E78.2 Active 544672428 Problem Asthma 493.90 Active 533565143 Problem Vaginitis N76.0 Active 74268312 Problem Primary insomnia F51.01 Active 6417731 Problem Acquired hypothyroidism E03.9 Active 711381184 Problem Hypertension I10 Active 24605756 Problem Unspecified asthma, uncomplicated J45.909 Active 00064973 Problem Psychosis, unspecified psychosis type F29 Active 80534506 Problem Allergic rhinitis, unspecified allergic rhinitis type J30.9 Active 73894996 ALLERGIES Substance Reaction Event Type Date Status Penicillin V Potassium Unknown Drug Allergy Dec, Active Hydrocodone-Acetaminophen Unknown Drug Allergy Dec, Active Cyclobenzaprine HCl Unknown Drug Allergy Dec, Active Cipro Unknown Drug Allergy Dec, Active Tramadol Unknown Drug Allergy Dec, Active ENCOUNTERS Encounter Location Date Diagnosis [facility] [id number] [address] Jan, [facility] [id number] [address] Dec, [place] [id number] [place] [address] 1968 Dec, Bronchitis J40 and Herpes zoster without complication B02.9 [facility] [id number] [address] Oct, Primary insomnia F51.01 [place] [id number] [place] [address]33- 1047 Oct, Forgetfulness R68.89 ; Psychosis, unspecified psychosis type F29 ; Acquired hypothyroidism E03.9 ; Mixed hyperlipidemia E78.2 ; Hypertension I10 ; Encounter for immunization Z23 and Breast cancer screening by mammogram Z12.31 [place] [address] [address]- [address] 27 Aug, 2017 Onychomycosis B35.1 [place] [address] [address]- 2718 17 Aug, 2017 Mixed hyperlipidemia E78.2 [place] [address] 94[address]- 6336 Aug, Scabies B86 ; Allergic rhinitis, unspecified allergic rhinitis type J30.9 ; Primary insomnia F51.01 ; Dysuria R30.0 ; Psychosis, unspecified psychosis type F29 ; Acquired hypothyroidism E03.9 and Hypertension I10 [place] [address] [address]- [address]97 May, Hypertension I10 [place] [address] [address]80- 4732 Apr, Unspecified asthma, uncomplicated J45.909 and Hypertension I10 [place] [id number] [place] [address] 09468- 0052 Mar, Hypertension I10 [place] [id number] [place] [address]463- 2029 Mar, Hypertension I10 ; Psychosis, unspecified psychosis type F29 ; Forgetfulness R68.89 and Encounter for immunization Z23 [place] [address] [address]- [address]857 Mar, [place] [address] [address]- 3025 Jan, [place] [address] [place] [address] Jan, Psychosis, unspecified psychosis type F29 [facility] [id number] [place] [address] 34877- 1723 Jan, [facility] [place] [address] [id number] Dec, [facility] [id number] [place] [address]71- 2813 Dec, [address] R42 [facility] [id number] [place] [address] 38221- 1735 Oct, Hypertension I10 ; Allergic rhinitis, unspecified allergic rhinitis type J30.9 and Flea bite of multiple sites W57.XXXA [facility] [id number] [place] [address]24- [address]159 August, [facility] [address] [address]- [address]200 August, Hypertension I10 ; Vertigo R42 ; Abdominal pain, acute, right lower quadrant R10.31 and Unspecified asthma, uncomplicated J45.909 [facility] [id number] [place] [address] 06342- 9699 Aug, Right lower quadrant abdominal pain R10.31 ; Irritable bowel syndrome without diarrhea K58.9 and Essential hypertension I10 [facility] [id number] [place] [address] 46909- 1406 Aug, [facility] [id number] [place] [address] 61455- 2794 Jul, [facility] [id number] [place] [address] 22588- 9003 Jul, [facility] [id number] [place] [address] 72360- [address] Jul, [facility] [id number] [place] [address] 03922- 4555 Jul, [place] [address], [place] [address] Jun, [facility] [id number] [place] [address] 69484- 1292 Jun, Abdominal pain, acute, right lower quadrant R10.31 [facility] [id number] [place] [address]01- 3075 Jun, [facility] [id number] [place] [address] 30268- 0301 Jun, [facility] [id number] [place] [address] 48896- 4790 Jun, [facility] [id number] [place] [address] 79637- 7863 Apr, [facility] [id number] [place] [address] 04843- 0683 Apr, Decubitus skin ulcer, stage I L89.91 [facility] [address], [place] [address] Mar, [facility] [id number] [place] [address] 01074 -8212 Mar, Pressure ulcer, stage II L89.92 [facility] [address], [place] [address] 2[address] Jan, Wound cellulitis L03.90 [facility] [address], [place] [address] Jan, [facility] [address] [place] [address] 53680- 1341 Dec, [facility] [id number] [place] [address] 81018- 6910 Oct, Elevated blood pressure I10 and Allergic rhinitis, unspecified allergic rhinitis type J30.9 [facility] [id number] [place] [address] 57718- 8237 August, [facility] [id number] [place] [address] 29273- 1440 August, Right lower quadrant abdominal pain R10.31 and Essential hypertension I10 [facility] [id number] [place] [address] 41147- 0134 August, [facility] [address] [address]- [address]00 August, [facility] [address] [address]17- [address]11 Aug, [facility] [address] 25161- 2924 Aug, Hypertension I10 and Rash R21 [facility] [address] 66534- 2885 Aug, Gastritis K29.70 [facility] [address] 22815- 9571 Aug, [facility] [address] 20410- 5170 Aug, [facility] [id number] [place] [address] 42200- 3611 Aug, [facility] [id number] [place] [address] 68414- 7067 Aug, Rash R21 ; Vertigo R42 ; Gastritis K29.70 and Urination pain R30.9 [facility] [id number] [place] [address] 76888- 8617 Jul, [facility] [address] 90260- 1792 15 Jul, 2015 [facility] [id number] [place] [address] 88139- 1728 09 Jul, [address] [facility] [address] 95521- 9746 Jul, Headache R51 ; Hypertension I10 ; Vaginitis N76.0 and Hypoxemia R09.02 [place] [address] 06197- 8385 May, [facility] [address] 80102- 1351 Apr, [place] [address] 57280- 5623 Jan, Urinary tract infection, site unspecified N39.0 and Encounter for immunization Z23 [place] [address] 79151- 3545 Jan, Allergic rhinitis 477.9 ; Abdominal pain 789.00 and Asthma 493.90 [place] [address] 93082- 7915 Dec, [place] [address] 26681- 7956 Dec, [place] [address] 89834- 9613 Dec, Scabies 133.0 and Snoring 786.09 [place] [address] 71399- 5789 Oct, Scabies 133.0 [place] [address] 74887- 9189 Oct, [facility] [address] 56760- 5860 Oct, [place] [address] 95875- 1279 August, Vertigo 780.4 ; Anxiety 300.00 ; Rash 782.1 and Abscess 682.9 [place] [address] 34510- 7552 August, [place] [id number] [place] [address]- 7049 14 Aug, 2014 [facility] [address] [id number] [place] [address]- 9670 13 Aug, 2014 [facility] [place] [facility] [address] [id number] [place] [address]- 1768 Jul, [facility] [place] [facility] [address] [id number] [place] [address]- 2997 Jul, [facility] [place] [facility] [address] [id number] [place] [address]- 1934 Jul, [facility] [place] [facility] [address] [id number] [place] [address]- 5826 Jul, [facility] [place] [facility] [address] [id number] [place] [address]- 2057 16 Jun, 2014 [facility] [place] [facility] [address] [id number] [place] [address]- 9887 Jun, [facility] [address] [id number] [place] [address]- 9267 May, [facility] [place] [facility] [address] [id number] [place] [address]- 6847 May, [facility] [address] [facility] [id number] [place] [address]- 2316 Apr, [facility] [place] [facility] [address] [id number] [place] [address]- 5515 Apr, [facility] [place] [facility] [address] [id number] [place] [address]- 5954 Apr, [facility] [place] [facility] [address] [id number] [place] [address]- 9832 Apr, [facility] [place] [facility] [address] [id number] [place] [address]- 5996 Mar, [facility] [place] [facility] [address] [id number] [place] [address]- 1493 Mar, [facility] [place] [facility] [address] [id number] [place] [address]- 5554 Jan, [facility] [place] [facility] [address] [id number] [place] [address]- 9457 Jan, [facility] [place] [facility] [address] [id number] [place] [address]- 3337 Jan, [facility] [place] [facility] [address] [id number] [place] [address]- 0780 Jan, [facility] [place] [facility] [address] [id number] [place] [address]- 8176 Jan, [facility] [place] [facility] [address] [id number] [place] [address]- 9891 Jan, [facility] [place] [facility] [address] [id number] [place] [address]- 8729 Dec, [facility] [place] [facility] [address] [id number] [place] [address]- 8747 Dec, [facility] [place] [facility] [address] [id number] [place] [address]- 5736 Oct, [facility] [place] [facility] [address] [id number] [place] [address]- 2555 Oct, [facility] [place] [facility] [address] [id number] [place] [address]- 9064 Oct, [facility] [place] [facility] [address] [id number] [address]- 9109 Oct, [facility] [place] [facility] [address] [id number] [place] [address]- 8418 Oct, [facility] [place] [facility] [address] [id number] [place] [address]- 6949 Oct, [facility] [place] [facility] [address] [id number], [place] [address]- 7354 Oct, [facility] [place] [facility] [address] [id number] [place] [address]- 2369 Oct, [facility] [place] [facility] [address] [id number] [place] [address]- 9609 Oct, [facility] [place] [facility] [address] [id number] [place] [address]- 4802 August, [facility] [place] [facility] [address] [id number] [place] [address]- 0499 August, [facility] [place] [facility] [address] [id number] [place] [address]- 2166 Jun, [facility] [place] [facility] [address] [id number] [place] [address]- 8827 Jun, [facility] [place] [facility] [address] [id number] [place] [address]- 5751 Jun, [facility] [place] [facility] [address] [id number] [place] [address]- 2035 Jun, [facility] [place] [facility] [address] [facility] [id number] [place] [address]- 4373 Jun, [facility] [place] [facility] [address] [facility] [id number] [place] [address]- 9579 Apr, [facility] [place] [facility] [address] [facility] [id number] [place] [address]- 7163 Apr, [facility] [place] [facility] [address] [id number] [place] [address]- 7699 Apr, [facility] [place] [facility] [address] [id number] [place] [address]- 2542 Apr, [facility] [place] [facility] [address] [id number] [place] [address]- 0739 Apr, [facility] [place] [facility] [address] [facility] [id number] [place] [address]- 1603 Apr, [facility] [place] [facility] [address] [id number] [place] [address]- 7379 Apr, [facility] [place] [facility] [address] [id number] [place] [address]- 5482 Apr, [facility] [address] [id number] [place] [address]- 2029 Apr, [facility] [address] [id number] [place] [address]- 8037 Apr, [facility] [address] [id number] [place] [address]- 2012 Apr, [facility] [address] [id number] [place] 4[address] Apr, [facility] [address] [id number] [place] [address]- 0133 Dec, [facility] [address] [id number] [place] [address]- 6486 Dec, [facility] [address] [id number] [place] [address]- 4486 Jul, [facility] [address] [id number] [place] [address]- 1901 Jun, [facility] [address] [id number] [place] [address]- 0245 Jun, [facility] [address] [id number] [place] [address]- 8363 Oct, [facility] [address] [id number] [place] [address]- 5765 Jul, [facility] [address] [id number] [place] [address]- 9901 Apr, [facility] [address] [id number] [place] [address]- 4157 Apr, [facility] [address] [id number] [place] [address]- 9815 Apr, [facility] [address] [id number], [place] [address]- 25[address] Mar, [facility] [id number] [address] Jan, [facility] [address] [address] 2546 Jan, [facility] [address] [address] 25[address] Jan, [facility] [id number] [place] [address]- 2546 Dec, [facility] [address], [place] [address]- 2546 Oct, [facility] [id number] [place] [address] 45806- 2546 Jan, [place] [address], [place] [address]- 2546 Oct, [facility] [address], [place] [address]- 2546 Apr, IMMUNIZATIONS No Known Immunizations SOCIAL HISTORY Never Assessed REASON FOR VISIT Rash, PT reports she has a painful rash on her left side that will not go away, She went to [facility] where they gave her some cream but it is not helping. PT states this cough started a week ago as well and has worsened. PT reports pain and unable to talk. -Guille DUGGAN PLAN OF CARE Activity Details Follow Up prn Reason: VITAL SIGNS Height 62 in 2017-12-20 Weight 182.4 lbs 2017-12-20 Temperature 97.9 degrees Fahrenheit 2017-12-20 Heart Rate 147 bpm 2017-12-20 Respiratory Rate 20 2017-12-20 Oximetry 98 % 2017-12-20 BMI 33.36 kg/m2 2017-12-20 Blood pressure systolic 138 mmHg 2017-12-20 Blood pressure diastolic 80 mmHg 2017-12-20 MEDICATIONS Medication Instructions Dosage Frequency Start Date End Date Duration Status Acyclovir 400 mg orally 3 times a day one tab 8h Dec, Dec, 7 days Active Propranolol HCl 40 MG Orally Twice a day 1 tablet 12h Jun, 90 days Active Synthroid 50 MCG Orally Once a day 1 tablet on an empty stomach in the morning 24h Active Promethazine-Codeine 6.25-10 MG/5ML Orally every 6 hrs 5 ml as needed 6h Dec, Active ProAir HFA Inhalation every 6 hrs 2 puffs as needed 6h Active Trazodone HCl 50 mg Orally Once a day 1 tablet at bedtime 24h Active Bentyl 20 mg Orally 2 times a day 1 tablet 12h 90 Active Omeprazole 40 MG Orally Once a day 1 capsule 24h August, 90 days Active Cetirizine HCl 10 mg Orally Once a day 1 tablet 24h 21 Oct, 2016 90 Active Flonase 50 MCG/ACT Nasally twice a day 1 spray in each nostril 12h Mar, 30 day(s) Active Zoloft 50 mg Orally Once a day 1 tablet 24h 12 Aug, 2016 Active Zithromax Z-Santosh 250 MG Orally Once a day 2 tablets on the first day, then 1 tablet daily for 4 days 24h Dec, Dec, 5 day(s) Active Montelukast Sodium 10 MG TAKE 1 TABLET BY MOUTH IN THE EVENING 90 Active Lovastatin 40 mg Orally Once a day 1 tablet with a meal 24h Aug, 90 day(s) Active RESULTS No Results PROCEDURES [...] 01/06/16 Hospitalization History Suicidal ideation with auditory hallucinations-[facility] Hospitalization History PT was in [place] for two weeks following her stay 12/2016 Hospitalization History [facility] ER 12/13
--- OUTSIDE RECORDS SUMMARY | 2018-06-24 14:59 | XMS REPORT ---
Author Author EDUARDO GRUBER Organization [facility] [place] Address [address] [place] [address] Care Team Providers Care Driver Guard Name Role Phone EDUARDO GRUBER Unavailable PROBLEMS Type Condition ICD9-CM Code VHO64-XM Code Onset Dates Condition Status SNOMED Code Problem Headache R51 Active 88820239 Problem Irritable bowel syndrome without diarrhea K58.9 Active 03712139 Problem Hypoxemia R09.02 Active 467016320 Problem Mixed hyperlipidemia E78.2 Active 620276138 Problem Asthma 493.90 Active 078947287 Problem Vaginitis N76.0 Active 59342265 Problem Primary insomnia F51.01 Active 9200332 Problem Acquired hypothyroidism E03.9 Active 881508167 Problem Hypertension I10 Active 48774493 Problem Unspecified asthma, uncomplicated J45.909 Active 67900708 Problem Psychosis, unspecified psychosis type F29 Active 33594078 Problem Allergic rhinitis, unspecified allergic rhinitis type J30.9 Active 79449003 ALLERGIES No Information ENCOUNTERS Encounter Location Date Diagnosis [place] [id number] [place] [address] 10446- 1780 Jan, [place] [id number] [place] [address] 95707- 6699 Dec, [place] [address] 31110- [address]37 Dec, Bronchitis J40 and Herpes zoster without complication B02.9 [place] [address] 28087- 9391 Oct, Primary insomnia F51.01 [place] [id number] [place] [address] 02049- 6350 Oct, Forgetfulness R68.89 ; Psychosis, unspecified psychosis type F29 ; Acquired hypothyroidism E03.9 ; Mixed hyperlipidemia E78.2 ; Hypertension I10 ; Encounter for immunization Z23 and Breast cancer screening by mammogram Z12.31 [place] [address] 49786- 0655 Aug, Onychomycosis B35.1 [place] [address] 29251- 2425 Aug, Mixed hyperlipidemia E78.2 [place] [address] 23283- 4163 Aug, Scabies B86 ; Allergic rhinitis, unspecified allergic rhinitis type J30.9 ; Primary insomnia F51.01 ; Dysuria R30.0 ; Psychosis, unspecified psychosis type F29 ; Acquired hypothyroidism E03.9 and Hypertension I10 [place] [address] 50880- 3902 May, Hypertension I10 [address] 30486- 4561 Apr, Unspecified asthma, uncomplicated J45.909 and Hypertension I10 [address] 21119- 0149 Mar, Hypertension I10 [place] [address] 85440- 9845 Mar, Hypertension I10 ; Psychosis, unspecified psychosis type F29 ; Forgetfulness R68.89 and Encounter for immunization Z23 [place] [address] 29227- 9000 Mar, [place] [address] 32371- 8966 Jan, [address] 98568- 4183 Jan, Psychosis, unspecified psychosis type F29 [address] 71032- 7933 Jan, [facility] [id number] [place] [address] [id number] Dec, [facility] [place] [id number] [place] [address] 02497- 1939 Dec, Dizziness R42 [facility] [place] [id number] [place] [address] 57780- 5578 Oct, Hypertension I10 ; Allergic rhinitis, unspecified allergic rhinitis type J30.9 and Flea bite of multiple sites W57.XXXA [facility] [place] [id number] [place] [address] 55536- 4522 August, [facility] [place] [id number] [place] [address] 35967- 5182 August, Hypertension I10 ; Vertigo R42 ; Abdominal pain, acute, right lower quadrant R10.31 and Unspecified asthma, uncomplicated J45.909 [facility] [place] [id number] [place] [address] 58546- 3205 Aug, Right lower quadrant abdominal pain R10.31 ; Irritable bowel syndrome without diarrhea K58.9 and Essential hypertension I10 [facility] [place] [id number] [place] [address] 84728- 2047 Aug, [facility] [place] [id number] [place] [address] 62503- 0929 Jul, [facility] [place] [id number] [place] [address] 43143- 6924 Jul, [facility] [place] [id number] [place] [address] 96787- 9571 Jul, [facility] [place] [id number] [place] [address] 66415- 4544 Jul, [facility] [place] [id number] [place] [address] 20863- 4708 Jun, [facility] [place] [id number] [place] [address] 65823- 9364 Jun, Abdominal pain, acute, right lower quadrant R10.31 [facility] [place] [address] [address]- 1205 Jun, [facility] [place] [id number] [place] [address] 28279- 3676 Jun, [facility] [place] [id number] [place] [address] 75341- 4005 Jun, [facility] [place] [id number] [place] [address] 69127- 9966 Apr, [facility] [place] [id number] [place] [address] 73918- 2131 Apr, Decubitus skin ulcer, stage I L89.91 [facility] [place] [id number] [place] [address] 76207- 9658 Mar, [facility] [id number] [place] [address] 39757 -1291 Mar, Pressure ulcer, stage II L89.92 [facility] [place] [id number] [place] [address] 56406- 3587 Jan, Wound cellulitis L03.90 [facility] [place] [id number] [place] [address] 84517- 5188 Jan, [facility] [place] [id number] [place] [address] 45233- 5865 Dec, [facility] [place] [id number] [place] [address] 38816- 1210 Oct, Elevated blood pressure I10 and Allergic rhinitis, unspecified allergic rhinitis type J30.9 [facility] [place] [id number] [place] [address] 01770- 0333 August, [facility] [place] [address] [place] [address] 93892- 9401 August, Right lower quadrant abdominal pain R10.31 and Essential hypertension I10 [facility] [place] [id number] [place] [address] 49122- 4224 August, [facility] [place] [address] 88963- 5037 August, [facility] [place] [id number] [place] [address] 12550- 4148 Aug, [facility] [place] [address] 74254- 3403 Aug, Hypertension I10 and Rash R21 [facility] [place] [address] 22998- 1782 Aug, Gastritis K29.70 [facility] [place] [address] 87821- 7718 Aug, [facility] [place] [address] 23721- 2342 Aug, [facility] [place] [id number] [place] [address] 53247- 4397 Aug, [facility] [place] [address] 64499- 1542 Aug, Rash R21 ; Vertigo R42 ; Gastritis K29.70 and Urination pain R30.9 [facility] [place] [id number] [place] [address] 13062- 9553 Jul, [facility] [place] [id number] [place] [address] 00823- 1140 Jul, [facility] [place] [id number] [place] [address] 22608- 6515 Jul, Hypertension I10 [facility] [place] [address] 62950- 8342 Jul, Headache R51 ; Hypertension I10 ; Vaginitis N76.0 and Hypoxemia R09.02 [facility] [place] [id number] [place] [address] 26925- 6559 May, [facility] [place] [id number] [place] [address] 62679- 0519 Apr, [facility] [place] [address] 04697- 5708 Jan, Urinary tract infection, site unspecified N39.0 and Encounter for immunization Z23 [facility] [place] [address] 24610- 5870 Jan, Allergic rhinitis 477.9 ; Abdominal pain 789.00 and Asthma 493.90 [facility] [place] [id number] [place] [address] 41542- 4962 Dec, [facility] [place] [address] 00810- 3592 Dec, [facility] [place] [address] 54029- 5739 Dec, Scabies 133.0 and Snoring 786.09 [facility] [place] [id number] [place] [address] 39631- 6101 Oct, Scabies 133.0 [facility] [place] [address] 08826- 3285 Oct, [facility] [place] [id number] [place] [address] 37195- 9628 Oct, [facility] [place] [id number] [place] [address] 38923- 2287 August, Vertigo 780.4 ; Anxiety 300.00 ; Rash 782.1 and Abscess 682.9 [facility] [place] [id number] [place] [address] 15169- 8000 August, [facility] [place] [id number] [place] [address] 87234- 0468 14 Aug, 2014 [facility] [place] [id number] [place] [address] 49127- 2426 Aug, [facility] [place] [id number] [place] [address]- 7766 23 Jul, 2014 [facility] [place] [facility] [address] [id number] [place] [address]- 3030 23 Jul, 2014 [facility] [place] [facility] [address] [id number] [place] [address]- 2546 13 Jul, 2014 [facility] [place] [facility] [address] [id number] [place] [address]- 2666 Jul, [facility] [place] [facility] [address] [id number] [place] [address]- 4063 Jun, [facility] [place] [facility] [address] [id number] [place] [address]- 5460 Jun, [facility] [place] [facility] [address] [id number] [place] [address]- 1735 May, [facility] [place] [facility] [address] [id number] [place] [address]- 5082 May, [facility] [place] [facility] [address] [id number] [place] [address]- 6756 Apr, [facility] [place] [facility] [address] [id number] [place] [address]- 9333 Apr, [facility] [place] [facility] [address] [id number] [place] [address]- 8702 Apr, [facility] [place] [facility] [address] [id number] [place] [address]- 2646 Apr, [facility] [place] [facility] [address] [id number] [place] [address]- 1038 Mar, [facility] [place] [facility] [address] [id number] [place] [address]- 1176 Mar, [facility] [place] [facility] [address] [id number] [place] [address]- 2546 Jan, [facility] [place] [facility] [address] [id number] [place] [address]- 9263 Jan, [facility] [place] [facility] [address] [id number] [place] [address]- 8170 Jan, [facility] [place] [facility] [address] [id number] [place] [address]- 6673 Jan, [facility] [place] [facility] [address] [id number] [place] [address]- 2823 Jan, [facility] [place] [facility] [address] [id number] [place] [address]- 5446 Jan, [facility] [place] [facility] [address] [id number] [place] [address]- 6745 Dec, [facility] [place] [facility] [address] [id number] [place] [address]- 1334 Dec, [facility] [place] [facility] [address] [id number] [place] [address]- 5152 Oct, [facility] [place] [facility] [address] [id number] [place] [address]- 1474 Oct, [facility] [place] [facility] [address] [id number] [place] [address]- 2212 Oct, [facility] [place] [facility] [address] [id number] [place] [address]- 5405 Oct, [facility] [place] [facility] [address] [id number] [place] [address]- 7431 Oct, [facility] [place] [facility] [address] [id number] [address]- 8527 Oct, [facility] [place] [facility] [address] [id number] [place] [address]- 6582 Oct, [facility] [place] [facility] [address] [id number] [place] [address]- 3341 Oct, [facility] [place] [facility] [address] [id number] [place] [address]- 7996 Oct, [facility] [place] [facility] [address] [id number] [place] [address]- 6018 August, [facility] [address] [id number] [place] [address]- 0956 August, [facility] [place] [facility] [address] [id number] [place] [address]- 8706 Jun, [facility] [place] [facility] [address] [id number] [place] [address] 2546 Jun, [facility] [place] [facility] [address] [id number] [place] [address] 2546 Jun, [facility] [place] [facility] [address] [id number] [place] [address]- 1326 Jun, [facility] [place] [facility] [address] [id number] [place] [address]- 1507 Jun, [facility] [id number] [place] [address]- 5279 Apr, [facility] [address] [id number] [place] [address]- 2545 Apr, [facility] [place] [facility] [address] [facility] [id number] [place] [address]- 3443 Apr, [facility] [address] [facility] [id number] [place] [address]- 2746 Apr, [facility] [place] [facility] [address] [id number] [place] [address] 2546 Apr, [facility] [place] [facility] [address] [id number] [place] [address] 2546 Apr, [facility] [place] [facility] [address] [id number] [place] [address] 2546 Apr, [facility] [place] [facility] [address] [id number] [place] [address]- 2546 Apr, [facility] [place] [facility] [address] [facility] [id number] [place] [address] 4945 Apr, [facility] [address] [id number] [place] 6271 Apr, [facility] [place] [facility] [address] [id number] [place] 7420 Apr, [facility] [address] [id number] [place] [address]- 9960 Apr, [facility] [place] [facility] [address] [id number] [place] [address]- 4926 Dec, [facility] [address] [id number] [place] 0147 Dec, [facility] [place] [facility] [address] [id number] [place] [address]- 5497 Jul, [facility] [place] [facility] [address] [id number] [place] [address]- 0293 Jun, [facility] [address] [id number] [place] [address]- 6720 Jun, [facility] [address] [id number] [place] [address]- 3372 Oct, [facility] [address] [id number] [place] [address]- 9548 Jul, [facility] [place] [facility] [address] [id number] [place] [address]- 9735 Apr, [facility] [place] [facility] [address] [id number] [address]- 2090 Apr, [facility] [place] [facility] [address] [id number] [place] [address]- 4997 Apr, [facility] [place] [facility] [address] [id number] [place] [address]- 0561 Mar, [facility] [place] [facility] [address] [id number] [place] [address]- 8657 Jan, [facility] [place] [facility] [address] [id number] [address]- 8636 19 Jan, 2011 [facility] [place] [address] [id number] [address]- 3018 Jan, [facility] [place] [address] [id number] [address]- 3926 16 Dec, 2010 [facility] [place] [address] [address]- 5241 Oct, [facility] [place] [address] [address]- 4991 Jan, [facility] [place] [address] [address]- 4166 Oct, [facility] [place] [address] [address]- 8281 Apr, IMMUNIZATIONS No Known Immunizations SOCIAL HISTORY Never Assessed REASON FOR VISIT Med list update PLAN OF CARE VITAL SIGNS MEDICATIONS Medication Instructions Dosage Frequency Start Date End Date Duration Status Cetirizine HCl 10 mg Orally Once a day 1 tablet 24h 21 Oct, 2016 90 Active Synthroid 50 MCG Orally Once a day 1 tablet on an empty stomach in the morning 24h Active Promethazine-Codeine 6.25-10 MG/5ML Orally every 6 hrs 5 ml as needed 6h Dec, Active Propranolol HCl 40 MG Orally Twice a day 1 tablet 12h 15 Jun, 2016 90 days Active Zoloft 50 mg Orally Once a day 1 tablet 24h 12 Aug, 2016 Active Lovastatin 40 mg Orally Once a day 1 tablet with a meal 24h 17 Aug, 2017 90 day(s) Active Omeprazole 40 MG Orally Once a day 1 capsule 24h August, 90 days Active Trazodone HCl 100 MG Orally Once a day 1 tablet at bedtime 24h Active Bentyl 20 mg Orally 2 times a day 1 tablet 12h 90 Active Abilify 10 MG Orally Once a day 1 tablet 24h Active ProAir HFA Inhalation every 6 hrs 2 puffs as needed 6h Active Flonase 50 MCG/ACT Nasally twice a day 1 spray in each nostril 12h Mar, 30 day(s) Active Montelukast Sodium 10 MG TAKE 1 TABLET BY MOUTH IN THE EVENING 90 Active RESULTS No Results PROCEDURES No [...] 01/06/16 Hospitalization History Suicidal ideation with auditory hallucinations-[facility] Hospitalization History PT was in [place] for two weeks following her stay 12/2016 Hospitalization History [facility] ER 12/13
[2018-06-24] MEDS ORDERED: PROMETHAZINE/ CODEINE SYRUP 5 ML UDC PO ONE (15:00)
[2018-06-24 15:05] LABS: BASOPHILS % (AUTO) 0 % (0-10); EOSINOPHILS % (AUTO) 0 % (0-10); HEMATOCRIT 44 % (35-52); HEMOGLOBIN 14.5 G/DL (11.5-16.0); LYMPHOCYTES # (AUTO) 1.6 X 10^3 (1.0-4.0); LYMPHOCYTES % (AUTO) 21 % (12-44); MEAN CORPUSCULAR HEMOGLOBIN 29 PG (25-34); MEAN CORPUSCULAR HGB CONC 33 G/DL (32-36); MEAN CORPUSCULAR VOLUME 89 FL (80-99); MONOCYTES # (AUTO) 0.6 X 10^3 (0.0-1.0); MONOCYTES % (AUTO) 8 % (0-12); NEUTROPHILS # (AUTO) 5.3 X 10^3 (1.8-7.8); NEUTROPHILS % (AUTO) 70 % (42-75); PLATELET COUNT 186 10^3/uL (130-400); RED CELL DISTRIBUTION WIDTH 14.3 % (10.0-14.5); WHITE BLOOD COUNT 7.6 10^3/uL (4.3-11.0)
--- OUTSIDE RECORDS SUMMARY | 2018-06-24 15:07 | XMS REPORT | Continuity of Care Document ---
Author Author [facility] of [facility] Address Unknown Phone Unavailable Allergies Active [...] Drug Allergy N/A N/A 06/20/2013 Yes Penicillins [id number] Drug Allergy Unknown N/A 08/20/2015 Yes tuberculin, purified protein deriva [id number] Drug Allergy Mild N/A 2015 Yes tuberculin,purif.prot.deriv. [id number] Drug Allergy Mild N/A 08/20/2015 Medications There [...] SARABIA APRN A 784.0 HEADACHE 05/01/2008 ALLYN CRYPTOLOGIC TECHNICIAN, EDUARDO S 784.0 HEADACHE 05/01/2008 ALLYN CRYPTOLOGIC TECHNICIAN, EDUARDO S 784.0 HEADACHE 05/01/2008 ALLYN CRYPTOLOGIC TECHNICIAN, EDUARDO S 784.0 HEADACHE 05/01/2008 ALLYN CRYPTOLOGIC TECHNICIAN, EDUARDO S 784.0 HEADACHE 05/01/2008 ALLYN CRYPTOLOGIC TECHNICIAN, EDUARDO S 784.0 HEADACHE 06/11/2008 719.47 Pain In Joint Involving Ankle And Foot 06/11/2008 719.47 Pain In Joint Involving Ankle And Foot 06/11/2008 CHRISS MENDEZ MD 719.47 Pain In Joint Involving Ankle And Foot 06/11/2008 ELVIA RIUZ DO 719.47 Pain In Joint Involving Ankle [...] Other Specified Diseases Of Nail 06/22/2008 ALLYN CRYPTOLOGIC TECHNICIAN, EDUARDO S 110.1 Onychomycosis 06/22/2008 ALLYN CRYPTOLOGIC TECHNICIAN, EDUARDO S 703.8 Other Specified Diseases Of Nail 06/22/2008 ALLYN CRYPTOLOGIC TECHNICIAN, EDUARDO S 110.1 Onychomycosis 06/22/2008 ALLYN CRYPTOLOGIC TECHNICIAN, EDUARDO S 703.8 Other Specified Diseases Of Nail 06/22/2008 ALLYN CRYPTOLOGIC TECHNICIAN, EDUARDO S 110.1 Onychomycosis 06/22/2008 ALLYN CRYPTOLOGIC TECHNICIAN, EDUARDO S 703.8 Other Specified Diseases Of Nail 06/22/2008 NO CRYPTOLOGIC TECHNICIAN, BENTLEY A 110.1 Onychomycosis 06/22/2008 NO CRYPTOLOGIC TECHNICIAN, BENTLEY A 703.8 Other Specified Diseases Of Nail 06/22/2008 ALLYN CRYPTOLOGIC TECHNICIAN, EDUARDO S 110.1 Onychomycosis 06/22/2008 ALLYN CRYPTOLOGIC TECHNICIAN, EDUARDO S 703.8 Other Specified Diseases Of Nail 06/22/2008 ALLYN CRYPTOLOGIC TECHNICIAN, EDUARDO S 110.1 Onychomycosis 06/22/2008 ALLYN CRYPTOLOGIC TECHNICIAN, EDUARDO S 703.8 Other Specified Diseases Of Nail 06/22/2008 ALLYN CRYPTOLOGIC TECHNICIAN, EDUARDO S 110.1 Onychomycosis 06/22/2008 ALLYN CRYPTOLOGIC TECHNICIAN, EDUARDO S 703.8 Other Specified Diseases Of Nail 06/22/2008 ALLYN CRYPTOLOGIC TECHNICIAN, EDUARDO S 110.1 Onychomycosis 06/22/2008 ALLYN CRYPTOLOGIC TECHNICIAN, EDUARDO S 703.8 Other Specified Diseases Of Nail 06/22/2008 ALLYN CRYPTOLOGIC TECHNICIAN, EDUARDO S 110.1 Onychomycosis 06/22/2008 ALLYN CRYPTOLOGIC TECHNICIAN, EDUARDO S 703.8 Other Specified Diseases Of Nail 09/28/2008 110.4 Tinea Pedis 09/28/2008 703.0 Nail Ingrown 09/28/2008 110.4 Tinea Pedis 09/28/2008 703.0 Nail Ingrown 09/28/2008 CHRISS MENDEZ MD 110.4 Tinea Pedis 09/28/2008 CHRISS MENDEZ MD 703.0 Nail Ingrown 09/28/2008 RUIZ DO, ELVIA K 110.4 Tinea Pedis 09/28/2008 RUIZ DO, ELVIA K 703.0 Nail Ingrown 09/28/2008 ALLYN CRYPTOLOGIC TECHNICIAN, EDUARDO S 110.4 Tinea Pedis 09/28/2008 ALLYN CRYPTOLOGIC TECHNICIAN, EDUARDO S 703.0 Nail Ingrown 09/28/2008 ALLYN CRYPTOLOGIC TECHNICIAN, EDUARDO S 110.4 Tinea Pedis 09/28/2008 ALLYN CRYPTOLOGIC TECHNICIAN, EDUARDO S 703.0 Nail Ingrown 09/28/2008 ALLYN CRYPTOLOGIC TECHNICIAN, EDUARDO S 110.4 Tinea Pedis 09/28/2008 ALLYN CRYPTOLOGIC TECHNICIAN, EDUARDO S 703.0 Nail Ingrown 09/28/2008 NO CRYPTOLOGIC TECHNICIAN, BENTLEY A 110.4 Tinea Pedis 09/28/2008 NO CRYPTOLOGIC TECHNICIAN, BENTLEY A 703.0 Nail Ingrown 09/28/2008 ALLYN CRYPTOLOGIC TECHNICIAN, EDUARDO S 110.4 Tinea Pedis 09/28/2008 ALLYN CRYPTOLOGIC TECHNICIAN, EDUARDO S 703.0 Nail Ingrown 09/28/2008 ALLYN CRYPTOLOGIC TECHNICIAN, EDUARDO S 110.4 Tinea Pedis 09/28/2008 ALLYN CRYPTOLOGIC TECHNICIAN, EDUARDO S 703.0 Nail Ingrown 09/28/2008 ALLYN CRYPTOLOGIC TECHNICIAN, EDUARDO S 110.4 Tinea Pedis 09/28/2008 ALLYN CRYPTOLOGIC TECHNICIAN, EDUARDO S 703.0 Nail Ingrown 09/28/2008 ALLYN CRYPTOLOGIC TECHNICIAN, EDUARDO S 110.4 Tinea Pedis 09/28/2008 ALLYN CRYPTOLOGIC TECHNICIAN, EDUARDO S 703.0 Nail Ingrown 09/28/2008 ALLYN CRYPTOLOGIC TECHNICIAN, EDUARDO S 110.4 Tinea Pedis 09/28/2008 ALLYN CRYPTOLOGIC TECHNICIAN, EDUARDO S 703.0 Nail Ingrown 10/15/2008 465.9 Acute Upper Respiratory Infections Of Unspecified Site 10/15/2008 465.9 Acute Upper Respiratory Infections Of Unspecified Site 10/15/2008 CHRISS MENDEZ MD 465.9 Acute Upper Respiratory Infections Of Unspecified Site 10/15/2008 RUIZ DO, ELVIA K 465.9 Acute Upper Respiratory Infections Of Unspecified Site 10/15/2008 ALLYN CRYPTOLOGIC TECHNICIAN, EDUARDO S 465.9 Acute Upper Respiratory Infections Of Unspecified Site 10/15/2008 ALLYN CRYPTOLOGIC TECHNICIAN, EDUARDO S 465.9 Acute Upper Respiratory Infections Of Unspecified Site 10/15/2008 ALLYN CRYPTOLOGIC TECHNICIAN, EDUARDO S 465.9 Acute Upper Respiratory Infections Of Unspecified Site 10/15/2008 NO CRYPTOLOGIC TECHNICIAN, BENTLEY A 465.9 Acute Upper Respiratory Infections Of Unspecified Site 10/15/2008 ALLYN CRYPTOLOGIC TECHNICIAN, EDUARDO S 465.9 Acute Upper Respiratory Infections Of Unspecified Site 10/15/2008 ALLYN CRYPTOLOGIC TECHNICIAN, EDUARDO S 465.9 Acute Upper Respiratory Infections Of Unspecified Site 10/15/2008 ALLYN CRYPTOLOGIC TECHNICIAN, EDUARDO S 465.9 Acute Upper Respiratory Infections Of Unspecified Site 10/15/2008 ALLYN CRYPTOLOGIC TECHNICIAN, EDUARDO S 465.9 Acute Upper Respiratory Infections Of Unspecified Site 10/15/2008 ALLYN CRYPTOLOGIC TECHNICIAN, EDUARDO S 465.9 Acute Upper Respiratory Infections Of Unspecified Site 05/28/2009 511.0 Pleurisy, Without Mention Of Effusion Or Current Tuberculosis 05/28/2009 511.0 Pleurisy, Without Mention Of Effusion Or Current Tuberculosis 05/28/2009 CHRISS MENDEZ MD 511.0 Pleurisy, Without Mention Of Effusion Or Current Tuberculosis 05/28/2009 SARA ABRAHAM, ELVIA K 511.0 Pleurisy, Without Mention Of Effusion Or Current Tuberculosis 05/28/2009 ALLYN CRYPTOLOGIC TECHNICIAN, EDUARDO S 511.0 Pleurisy, Without Mention Of Effusion Or Current Tuberculosis 05/28/2009 LALYN CRYPTOLOGIC TECHNICIAN, EDUARDO S 511.0 Pleurisy, Without Mention Of Effusion Or Current Tuberculosis 05/28/2009 ALLYN CRYPTOLOGIC TECHNICIAN, EDUARDO S 511.0 Pleurisy, Without Mention Of Effusion Or Current Tuberculosis 05/28/2009 NO CRYPTOLOGIC TECHNICIAN, BENTLEY A 511.0 Pleurisy, Without Mention Of Effusion Or Current Tuberculosis 05/28/2009 ALLYN CRYPTOLOGIC TECHNICIAN, EDUARDO S 511.0 Pleurisy, Without Mention Of Effusion Or Current Tuberculosis 05/28/2009 ALLYN CRYPTOLOGIC TECHNICIAN, EDUARDO S 511.0 Pleurisy, Without Mention Of Effusion Or Current Tuberculosis 05/28/2009 ALLYN CRYPTOLOGIC TECHNICIAN, EDUARDO S 511.0 Pleurisy, Without Mention Of Effusion Or Current Tuberculosis 05/28/2009 ALLYN CRYPTOLOGIC TECHNICIAN, EDUARDO S 511.0 Pleurisy, Without Mention Of Effusion Or Current Tuberculosis 05/28/2009 ALLYN CRYPTOLOGIC TECHNICIAN, EDUARDO S 511.0 Pleurisy, Without Mention Of Effusion Or Current Tuberculosis 07/24/2009 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 CHRISS MENDEZ MD 733.6 Tietze's Disease 07/24/2009 ELVIA RUIZ DO 733.6 Tietze's Disease 07/24/2009 ALLYN CRYPTOLOGIC TECHNICIAN, EDUARDO S 733.6 Tietze's Disease 07/24/2009 ALLYN CRYPTOLOGIC TECHNICIAN, EDUARDO S 733.6 Tietze's Disease 07/24/2009 ALLYN CRYPTOLOGIC TECHNICIAN, EDUARDO S 733.6 Tietze's Disease 07/24/2009 NO CRYPTOLOGIC TECHNICIAN, BENTLEY A 733.6 Tietze's Disease 07/24/2009 ALLYN CRYPTOLOGIC TECHNICIAN, EDUARDO S 733.6 Tietze's Disease 07/24/2009 ALLYN CRYPTOLOGIC TECHNICIAN, EDUARDO S 733.6 Tietze's Disease 07/24/2009 ALLYN CRYPTOLOGIC TECHNICIAN, EDUARDO S 733.6 Tietze's Disease 07/24/2009 ALLYN CRYPTOLOGIC TECHNICIAN, EDUARDO S 733.6 Tietze's Disease 07/24/2009 ALLYN CRYPTOLOGIC TECHNICIAN, EDUARDO S 733.6 Tietze's Disease 07/31/2009 053.9 Herpes Zoster , Without Mention Of Complication 07/31/2009 053.9 Herpes Zoster , Without Mention Of Complication 07/31/2009 CHRISS MENDEZ MD 053.9 Herpes Zoster, Without Mention Of Complication 07/31/2009 ELVIA RUIZ DO 053.9 Herpes Zoster, Without Mention Of Complication 07/31/2009 ALLYN CRYPTOLOGIC TECHNICIAN, EDUARDO S 053.9 Herpes Zoster, Without Mention Of Complication 07/31/2009 ALLYN CRYPTOLOGIC TECHNICIAN, EDUARDO S 053.9 Herpes Zoster, Without Mention Of Complication 07/31/2009 ALLYN CRYPTOLOGIC TECHNICIAN, EDUARDO S 053.9 Herpes Zoster, Without Mention Of Complication 07/31/2009 NO CRYPTOLOGIC TECHNICIAN, BENTLEY A 053.9 Herpes Zoster, Without Mention Of Complication 07/31/2009 ALLYN CRYPTOLOGIC TECHNICIAN, EDUARDO S 053.9 Herpes Zoster, Without Mention Of Complication 07/31/2009 ALLYN CRYPTOLOGIC TECHNICIAN, EDUARDO S 053.9 Herpes Zoster, Without Mention Of Complication 07/31/2009 ALLYN CRYPTOLOGIC TECHNICIAN, EDUARDO S 053.9 Herpes Zoster, Without Mention Of Complication 07/31/2009 ALLYN CRYPTOLOGIC TECHNICIAN, EDUARDO S 053.9 Herpes Zoster, Without Mention Of Complication 07/31/2009 ALLYN CRYPTOLOGIC TECHNICIAN, EDUARDO S 053.9 Herpes Zoster, Without Mention Of Complication 10/29/2009 300.00 Anxiety State , Unspecified 10/29/2009 300.00 Anxiety State , Unspecified 10/29/2009 CHRISS MENDEZ MD 300.00 Anxiety State, Unspecified 10/29/2009 ELVIA RUIZ DO 300.00 Anxiety State, Unspecified 10/29/2009 ALLYN CRYPTOLOGIC TECHNICIAN, EDUARDO S 300.00 Anxiety State, Unspecified 10/29/2009 ALLYN CRYPTOLOGIC TECHNICIAN, EDUARDO S 300.00 Anxiety State, Unspecified 10/29/2009 ALLYN CRYPTOLOGIC TECHNICIAN, EDUARDO S 300.00 Anxiety State, Unspecified 10/29/2009 NO CRYPTOLOGIC TECHNICIAN, BENTLEY A 300.00 Anxiety State, Unspecified 10/29/2009 ALLYN CRYPTOLOGIC TECHNICIAN, EDUARDO S 300.00 Anxiety State, Unspecified 10/29/2009 ALLYN CRYPTOLOGIC TECHNICIAN, EDUARDO S 300.00 Anxiety State, Unspecified 10/29/2009 ALLYN CRYPTOLOGIC TECHNICIAN, EDUARDO S 300.00 Anxiety State, Unspecified 10/29/2009 ALLYN CRYPTOLOGIC TECHNICIAN, EDUARDO S 300.00 Anxiety State, Unspecified 10/29/2009 ALLYN CRYPTOLOGIC TECHNICIAN, EDUARDO S 300.00 Anxiety State, Unspecified 11/13/2009 [...] Without Mention Of Status Migrainosus 11/13/2009 ALLYN CRYPTOLOGIC TECHNICIAN, EDUARDO S 346.00 Migraine With Aura, Without Mention Of Intractable Migraine Without Mention Of Status Migrainosus 11/13/2009 ALLYN CRYPTOLOGIC TECHNICIAN, EDUARDO S 346.00 Migraine With Aura, Without Mention Of Intractable Migraine Without Mention Of Status Migrainosus 11/13/2009 ALLYN CRYPTOLOGIC TECHNICIAN, EDUARDO S 346.00 Migraine With Aura, Without Mention Of Intractable Migraine Without Mention Of Status Migrainosus 11/13/2009 NO CRYPTOLOGIC TECHNICIAN, BENTLEY A 346.00 Migraine With Aura, Without Mention Of Intractable Migraine Without Mention Of Status Migrainosus 11/13/2009 ALLYN CRYPTOLOGIC TECHNICIAN, EDUARDO S 346.00 Migraine With Aura, Without Mention Of Intractable Migraine Without Mention Of Status Migrainosus 11/13/2009 ALLYN CRYPTOLOGIC TECHNICIAN, EDUARDO S 346.00 Migraine With Aura, Without Mention Of Intractable Migraine Without Mention Of Status Migrainosus 11/13/2009 ALLYN CRYPTOLOGIC TECHNICIAN, EDUARDO S 346.00 Migraine With Aura, Without Mention Of Intractable Migraine Without Mention Of Status Migrainosus 11/13/2009 ALLYN CRYPTOLOGIC TECHNICIAN, EDUARDO S 346.00 Migraine With Aura, Without Mention Of Intractable Migraine Without Mention Of Status Migrainosus 11/13/2009 ALLYN CRYPTOLOGIC TECHNICIAN, EDUARDO S 346.00 Migraine With Aura, Without Mention Of Intractable Migraine Without Mention Of Status Migrainosus 02/04/2010 682.7 Cellulitis And Abscess Of Foot Except Toes 02/04/2010 682.7 Cellulitis And Abscess Of Foot Except Toes 02/04/2010 CHRISS MENDEZ MD 682.7 Cellulitis And Abscess Of Foot Except Toes 02/04/2010 ELVIA RUIZ DO 682.7 Cellulitis And Abscess Of Foot Except Toes 02/04/2010 ALLYN CRYPTOLOGIC TECHNICIAN, EDUARDO S 682.7 Cellulitis And Abscess Of Foot Except Toes 02/04/2010 ALLYN CRYPTOLOGIC TECHNICIAN, EDUARDO S 682.7 Cellulitis And Abscess Of Foot Except Toes 02/04/2010 ALLYN CRYPTOLOGIC TECHNICIAN, EDUARDO S 682.7 Cellulitis And Abscess Of Foot Except Toes 02/04/2010 NO CRYPTOLOGIC TECHNICIAN, BENTLEY A 682.7 Cellulitis And Abscess Of Foot Except Toes 02/04/2010 ALLYN CRYPTOLOGIC TECHNICIAN, EDUARDO S 682.7 Cellulitis And Abscess Of Foot Except Toes 02/04/2010 ALLYN CRYPTOLOGIC TECHNICIAN, EDUARDO S 682.7 Cellulitis And Abscess Of Foot Except Toes 02/04/2010 ALLYN CRYPTOLOGIC TECHNICIAN, EDUARDO S 682.7 Cellulitis And Abscess Of Foot Except Toes 02/04/2010 ALLYN CRYPTOLOGIC TECHNICIAN, EDUARDO S 682.7 Cellulitis And Abscess Of Foot Except Toes 02/04/2010 ALLYN CRYPTOLOGIC TECHNICIAN, EDUARDO S 682.7 Cellulitis And Abscess Of [...] V17.49 FAM HX ASCVD (DISEASE) 12/16/2010 ALLYN CRYPTOLOGIC TECHNICIANJONEDUARDO S 724.5 Back Pain, General 12/16/2010 JON GRUBER APRNNDA S V17.49 FAM HX ASCVD (DISEASE) 12/16/2010 ALLYN CRYPTOLOGIC TECHNICIAN, EDUARDO S 724.5 Back Pain, General 12/16/2010 ALLYN CRYPTOLOGIC TECHNICIAN, EDUARDO S V17.49 FAM HX ASCVD (DISEASE) 12/16/2010 ALLYN CRYPTOLOGIC TECHNICIAN, EDUARDO S 724.5 Back Pain, General 12/16/2010 ALLYN CRYPTOLOGIC TECHNICIAN, EDUARDO S V17.49 FAM HX ASCVD (DISEASE) 12/16/2010 NO CRYPTOLOGIC TECHNICIAN, BENTLEY A 724.5 Back Pain, General 12/16/2010 NO CRYPTOLOGIC TECHNICIAN, BENTLEY A V17.49 FAM HX ASCVD (DISEASE) 12/16/2010 ALLYN CRYPTOLOGIC TECHNICIAN, EDUARDO S 724.5 Back Pain, General 12/16/2010 ALLYN CRYPTOLOGIC TECHNICIAN, EDUARDO S V17.49 FAM HX ASCVD (DISEASE) 12/16/2010 ALLYN CRYPTOLOGIC TECHNICIAN, EDUARDO S 724.5 Back Pain, General 12/16/2010 ALLYN CRYPTOLOGIC TECHNICIAN, EDUARDO S V17.49 FAM HX ASCVD (DISEASE) 12/16/2010 ALLYN CRYPTOLOGIC TECHNICIAN, EDUARDO S 724.5 Back Pain, General 12/16/2010 ALLYN CRYPTOLOGIC TECHNICIAN, EDUARDO S V17.49 FAM HX ASCVD (DISEASE) 12/16/2010 ALLYN CRYPTOLOGIC TECHNICIAN, EDUARDO S 724.5 Back Pain, General 12/16/2010 ALLYN CRYPTOLOGIC TECHNICIAN, EDUARDO S V17.49 FAM HX ASCVD (DISEASE) 12/16/2010 ALLYN CRYPTOLOGIC TECHNICIAN, EDUARDO S 724.5 Back Pain, General 12/16/2010 ALLYN CRYPTOLOGIC TECHNICIAN, EDUARDO S V17.49 FAM HX ASCVD (DISEASE) 01/13/2011 381.81 DYSFUNCTION OF EUSTACHIAN TUBE 01/13/2011 381.81 DYSFUNCTION OF EUSTACHIAN TUBE 01/13/2011 CHRISS MENDEZ MD 381.81 DYSFUNCTION OF EUSTACHIAN TUBE 01/13/2011 ELVIA RUIZ DO 381.81 DYSFUNCTION OF EUSTACHIAN TUBE 01/13/2011 ALLYN CRYPTOLOGIC TECHNICIAN, EDUARDO S 381.81 DYSFUNCTION OF EUSTACHIAN TUBE 01/13/2011 ALLYN CRYPTOLOGIC TECHNICIAN EDUARDO S 381.81 DYSFUNCTION OF EUSTACHIAN TUBE 01/13/2011 ALLYN CRYPTOLOGIC TECHNICIAN, EDUARDO S 381.81 DYSFUNCTION OF EUSTACHIAN TUBE 01/13/2011 BENTLEY SARABIA APRN A 381.81 DYSFUNCTION OF EUSTACHIAN TUBE 01/13/2011 ALLYN CRYPTOLOGIC TECHNICIAN, EDUARDO S 381.81 DYSFUNCTION OF EUSTACHIAN TUBE 01/13/2011 ALLYN CRYPTOLOGIC TECHNICIAN, EDUARDO S 381.81 DYSFUNCTION OF EUSTACHIAN TUBE 01/13/2011 ALLYN CRYPTOLOGIC TECHNICIAN, EDUARDO S 381.81 DYSFUNCTION OF EUSTACHIAN TUBE 01/13/2011 ALLYN CRYPTOLOGIC TECHNICIAN, EDUARDO S 381.81 DYSFUNCTION OF EUSTACHIAN TUBE 01/13/2011 ALLYN CRYPTOLOGIC TECHNICIAN, EDUARDO S 381.81 DYSFUNCTION OF EUSTACHIAN TUBE [...] (3 YRS AND ABOVE, IM) 02/18/2011 DEXTER GRUBRE APRNA S V04.81 FLU DX (3 YRS AND ABOVE, IM) 02/18/2011 ALLYN CRYPTOLOGIC TECHNICIAN, EDUARDO S V04.81 FLU DX (3 YRS AND ABOVE, IM) 02/25/2011 702.8 OTHER SPECIFIED DERMATOSES 02/25/2011 702.8 OTHER SPECIFIED DERMATOSES 02/25/2011 CHRISS MENDEZ MD 702.8 OTHER SPECIFIED DERMATOSES 02/25/2011 ELVIA RUIZ DO K 702.8 OTHER SPECIFIED DERMATOSES 02/25/2011 ALLYN CRYPTOLOGIC TECHNICIAN, EDUARDO S 702.8 OTHER SPECIFIED DERMATOSES 02/25/2011 ALLYN CRYPTOLOGIC TECHNICIAN, EDUARDO S 702.8 OTHER SPECIFIED DERMATOSES 02/25/2011 ALLYN CRYPTOLOGIC TECHNICIAN, EDUARDO S 702.8 OTHER SPECIFIED DERMATOSES 02/25/2011 NO PRATT, BENTLEY A 702.8 OTHER SPECIFIED DERMATOSES 02/25/2011 ALLYN CRYPTOLOGIC TECHNICIAN, EDUARDO S 702.8 OTHER SPECIFIED DERMATOSES 02/25/2011 ALLYN CRYPTOLOGIC TECHNICIAN, EDUARDO S 702.8 OTHER SPECIFIED DERMATOSES 02/25/2011 ALLYN CRYPTOLOGIC TECHNICIAN, EDUARDO S 702.8 OTHER SPECIFIED DERMATOSES 02/25/2011 ALLYN CRYPTOLOGIC TECHNICIAN, EDUARDO S 702.8 OTHER SPECIFIED DERMATOSES 02/25/2011 ALLYN CRYPTOLOGIC TECHNICIAN, EDUARDO S 702.8 OTHER SPECIFIED DERMATOSES 03/03/2011 401.1 HYPERTENSION, BENIGN ESSENTIAL 03/03/2011 401.1 HYPERTENSION, BENIGN ESSENTIAL 03/03/2011 CHRISS MENDEZ MD 401.1 HYPERTENSION, BENIGN ESSENTIAL 03/03/2011 ELVIA RUIZ DO K 401.1 HYPERTENSION, BENIGN ESSENTIAL 03/03/2011 ALLYN CRYPTOLOGIC TECHNICIAN, EDUARDO S 401.1 HYPERTENSION, BENIGN ESSENTIAL 03/03/2011 ALLYN CRYPTOLOGIC TECHNICIAN, EDUARDO S 401.1 HYPERTENSION, BENIGN ESSENTIAL 03/03/2011 ALLYN CRYPTOLOGIC TECHNICIAN, EDUARDO S 401.1 HYPERTENSION, BENIGN ESSENTIAL 03/03/2011 NOQuique PRATT BENTLEY A 401.1 HYPERTENSION, BENIGN ESSENTIAL 03/03/2011 ALLYN CRYPTOLOGIC TECHNICIAN, EDUARDO S 401.1 HYPERTENSION, BENIGN ESSENTIAL 03/03/2011 ALLYN CRYPTOLOGIC TECHNICIAN, EDUARDO S 401.1 HYPERTENSION, BENIGN ESSENTIAL 03/03/2011 ALLYN CRYPTOLOGIC TECHNICIAN, EDUARDO S 401.1 HYPERTENSION, BENIGN ESSENTIAL 03/03/2011 ALLYN CRYPTOLOGIC TECHNICIAN, EDUARDO S 401.1 HYPERTENSION, BENIGN ESSENTIAL 03/03/2011 ALLYN CRYPTOLOGIC TECHNICIAN, EDUARDO S 401.1 HYPERTENSION, BENIGN ESSENTIAL 04/07/2011 [...] V03.82 Need For Vaccination Pneumococcal 04/07/2011 ALLYN CRYPTOLOGIC TECHNICIAN, EDUARDO S 465.9 UPPER RESPIRATORY INFECTION 04/07/2011 ALLYN CRYPTOLOGIC TECHNICIAN, EDUARDO S V03.82 Need For Vaccination Pneumococcal 04/07/2011 ALLYN CRYPTOLOGIC TECHNICIAN, EDUARDO S 465.9 UPPER RESPIRATORY INFECTION 04/07/2011 ALLYN AMAYAN, EDUARDO S V03.82 Need For Vaccination Pneumococcal 04/07/2011 ALLYN CRYPTOLOGIC TECHNICIAN, EDUARDO S 465.9 UPPER RESPIRATORY INFECTION 04/07/2011 ALLYN CRYPTOLOGIC TECHNICIAN, EDUARDO S V03.82 NEED FOR VACCINATION PNEUMOCOCCAL 04/07/2011 NO CRYPTOLOGIC TECHNICIAN, BENTLEY A 465.9 UPPER RESPIRATORY INFECTION 04/07/2011 NO CRYPTOLOGIC TECHNICIAN, BENTLEY A V03.82 NEED FOR VACCINATION PNEUMOCOCCAL 04/07/2011 ALLYN CRYPTOLOGIC TECHNICIAN, EDUARDO S 465.9 UPPER RESPIRATORY INFECTION 04/07/2011 ALLYN CRYPTOLOGIC TECHNICIAN, EDUARDO S V03.82 NEED FOR VACCINATION PNEUMOCOCCAL 04/07/2011 ALLYN CRYPTOLOGIC TECHNICIAN, EDUARDO S 465.9 UPPER RESPIRATORY INFECTION 04/07/2011 ALLYN CRYPTOLOGIC TECHNICIAN, EDUARDO S V03.82 NEED FOR VACCINATION PNEUMOCOCCAL 04/07/2011 ALLYN CRYPTOLOGIC TECHNICIAN, EDUARDO S 465.9 UPPER RESPIRATORY INFECTION 04/07/2011 ALLYN CRYPTOLOGIC TECHNICIAN, EDUARDO S V03.82 NEED FOR VACCINATION PNEUMOCOCCAL 04/07/2011 ALLYN CRYPTOLOGIC TECHNICIAN, EDUARDO S 465.9 UPPER RESPIRATORY INFECTION 04/07/2011 [...] OTHER SPECIFIED DISORDERS OF SKIN 07/06/2011 NO CRYPTOLOGIC TECHNICIAN, BENTLEY A 386.11 BENIGN PAROXYSMAL POSITIONAL VERTIGO 07/06/2011 NO CRYPTOLOGIC TECHNICIAN, BENTLEY A 709.8 OTHER SPECIFIED DISORDERS OF SKIN 07/06/2011 ALLYN PRATT, EDUARDO S 386.11 BENIGN PAROXYSMAL POSITIONAL VERTIGO 07/06/2011 ALLYN PRATT EDUARDO S 709.8 OTHER SPECIFIED DISORDERS OF SKIN 07/06/2011 ALLYN PRATT, EDUARDO S 386.11 BENIGN PAROXYSMAL POSITIONAL VERTIGO 07/06/2011 ALLYN PRATT EDUARDO S 709.8 OTHER SPECIFIED DISORDERS OF SKIN 07/06/2011 ALLYN PRATT EDUARDO S 386.11 BENIGN PAROXYSMAL POSITIONAL VERTIGO 07/06/2011 ALLYN CRYPTOLOGIC TECHNICIAN, EDUARDO S 709.8 OTHER SPECIFIED DISORDERS OF SKIN 07/06/2011 ALLYN CRYPTOLOGIC TECHNICIAN, EDUARDO S 386.11 BENIGN PAROXYSMAL POSITIONAL VERTIGO 07/06/2011 ALLYN CRYPTOLOGIC TECHNICIAN, EDUARDO S 709.8 OTHER SPECIFIED DISORDERS OF SKIN 07/06/2011 ALLYN CRYPTOLOGIC TECHNICIAN, EDUARDO S 386.11 BENIGN PAROXYSMAL POSITIONAL VERTIGO 07/06/2011 ALLYN CRYPTOLOGIC TECHNICIAN, EDUARDO S 709.8 OTHER SPECIFIED DISORDERS OF [...] ELVIA RUIZ DO 786.2 COUGH 06/27/2012 ALLYN CRYPTOLOGIC TECHNICIAN, EDUARDO S 786.2 COUGH 06/27/2012 ALLYN CRYPTOLOGIC TECHNICIAN, EDUARDO S 786.2 COUGH 06/27/2012 ALLYN CRYPTOLOGIC TECHNICIAN, EDUARDO S 786.2 COUGH 06/27/2012 NO AMAYAN BENTLEY A 786.2 COUGH 06/27/2012 ALLYN CRYPTOLOGIC TECHNICIAN, EDUARDO S 786.2 COUGH 06/27/2012 ALLYN CRYPTOLOGIC TECHNICIAN, EDUARDO S 786.2 COUGH 06/27/2012 ALLYN CRYPTOLOGIC TECHNICIAN, EDUARDO S 786.2 COUGH 06/27/2012 ALLYN CRYPTOLOGIC TECHNICIAN, EDUARDO S 786.2 COUGH 06/27/2012 ALLYN CRYPTOLOGIC TECHNICIAN, EDUARDO S 786.2 COUGH 11/30/2012 SHAQ SILVA, RENETTA Ot 564.00 UNSPEC CONSTIPATION 11/30/2012 SHAQ SILVA, RENETTA Ot 599.0 URIN TRACT INFECTION NOS 11/30/2012 SHAQ SILVA, RENETTA Ot 787.01 NAUSEA WITH VOMITING 11/30/2012 RENETTA NEW MD Ot 789.01 ABDOMINAL PAIN, RIGHT UPPER QUADRANT 05/01/2013 ALLYN CRYPTOLOGIC TECHNICIAN, EDUARDO S 053.9 HERPES ZOSTER (SHINGLES) 05/01/2013 ALLYN CRYPTOLOGIC TECHNICIAN, EDUARDO S 684 IMPETIGO 05/01/2013 ALLYN CRYPTOLOGIC TECHNICIAN, EDUARDO S 053.9 HERPES ZOSTER (SHINGLES) 05/01/2013 ALLYN CRYPTOLOGIC TECHNICIAN, EDUARDO S 684 IMPETIGO 05/01/2013 ALLYN CRYPTOLOGIC TECHNICIAN, EDUARDO S 053.9 HERPES ZOSTER (SHINGLES) 05/01/2013 ALLYN CRYPTOLOGIC TECHNICIAN, EDUARDO S 684 IMPETIGO 05/01/2013 NO CRYPTOLOGIC TECHNICIAN, BENTLEY A 053.9 HERPES ZOSTER (SHINGLES) 05/01/2013 NO CRYPTOLOGIC TECHNICIAN, BENTLEY A 684 IMPETIGO 05/01/2013 ALLYN CRYPTOLOGIC TECHNICIAN, EDUARDO S 053.9 HERPES ZOSTER (SHINGLES) 05/01/2013 ALLYN CRYPTOLOGIC TECHNICIAN, EDUARDO S 684 IMPETIGO 05/01/2013 ALLYN CRYPTOLOGIC TECHNICIAN, EDUARDO S 053.9 HERPES ZOSTER (SHINGLES) 05/01/2013 ALLYN CRYPTOLOGIC TECHNICIAN, EDUARDO S 684 IMPETIGO 05/01/2013 ALLYN CRYPTOLOGIC TECHNICIAN, EDUARDO S 053.9 HERPES ZOSTER (SHINGLES) 05/01/2013 ALLYN CRYPTOLOGIC TECHNICIAN, EDUARDO S 684 IMPETIGO 05/01/2013 ALLYN CRYPTOLOGIC TECHNICIAN, EDUARDO S 053.9 HERPES ZOSTER (SHINGLES) 05/01/2013 ALLYN CRYPTOLOGIC TECHNICIAN, EDUARDO S 684 IMPETIGO 05/01/2013 ALLYN CRYPTOLOGIC TECHNICIAN, EDUARDO S 053.9 HERPES ZOSTER (SHINGLES) 05/01/2013 ALLYN CRYPTOLOGIC TECHNICIAN, EDUARDO S 684 IMPETIGO 06/20/2013 ALLYN CRYPTOLOGIC TECHNICIAN, EDUARDO S 599.0 URINARY TRACT INFECTION 06/20/2013 ALLYN PRATT EDUARDO S 599.0 URINARY TRACT INFECTION 06/20/2013 BENTLEY SARABIA APRN A 599.0 URINARY TRACT INFECTION 06/20/2013 ALLYN CRYPTOLOGIC TECHNICIAN, EDUARDO S 599.0 URINARY TRACT INFECTION 06/20/2013 ALLYN CRYPTOLOGIC TECHNICIAN, EDUARDO S 599.0 URINARY TRACT INFECTION 06/20/2013 JON GRUBER APRNNDA S 599.0 URINARY TRACT INFECTION 06/20/2013 ALLYN CRYPTOLOGIC TECHNICIAN, EDUARDO S 599.0 URINARY TRACT INFECTION 06/20/2013 [...] CAUSED BY OTHER OBJ 10/24/2013 BISI BUCK CRYPTOLOGIC TECHNICIAN Ot 682.2 CELLULITIS OF TRUNK 10/26/2013 JON [...] SIGNS AND SYMPTOMS IN BREAST 11/14/2013 NO CRYPTOLOGIC TECHNICIAN BENTLEY A 625.0 DYSPAREUNIA 11/14/2013 NO AMAYAN BENTLEY A 719.43 PAIN- WRIST 11/14/2013 NO AMAYANCARMENBENTLEY A V16.3 FAM HX CANCER, BREAST 11/14/2013 NO AMAYANCARMENBENTLEY A V72.31 ENGINE ROOM HELPER EXAM, ROUTINE 11/14/2013 NO CRYPTOLOGIC TECHNICIAN BENTLEY A V76.10 BREAST CANCER SCREENING 11/14/2013 NO AMAYAN BENTLEY A V76.51 COLON CANCER SCREENING 11/14/2013 ALLYN CRYPTOLOGIC TECHNICIAN, EDUARDO S 611.6 GALACTORRHEA NOT ASSOCIATED WITH CHILDBIRTH 11/14/2013 ALLYN CRYPTOLOGIC TECHNICIAN, EDUARDO S 611.79 OTHER SIGNS AND SYMPTOMS IN BREAST 11/14/2013 ALLYN CRYPTOLOGIC TECHNICIAN, EDUARDO S 625.0 DYSPAREUNIA 11/14/2013 ALLYNMELLO AMAYAN, EDUARDO S 719.43 PAIN- WRIST 11/14/2013 ALLYN CRYPTOLOGIC TECHNICIAN, EDUARDO S V16.3 FAM HX CANCER, BREAST 11/14/2013 ALLYN CRYPTOLOGIC TECHNICIAN, EDUARDO S V72.31 ENGINE ROOM HELPER EXAM, ROUTINE 11/14/2013 ALLYN CRYPTOLOGIC TECHNICIAN, EDUARDO S V76.10 BREAST CANCER SCREENING 11/14/2013 ALLYN CRYPTOLOGIC TECHNICIAN, EDUARDO S V76.51 COLON CANCER SCREENING 11/14/2013 ALLYN CRYPTOLOGIC TECHNICIAN, EDUARDO S 611.6 GALACTORRHEA NOT ASSOCIATED WITH CHILDBIRTH 11/14/2013 ALLYN CRYPTOLOGIC TECHNICIAN, EDUARDO S 611.79 OTHER SIGNS AND SYMPTOMS IN BREAST 11/14/2013 ALLYN CRYPTOLOGIC TECHNICIAN, EDUARDO S 625.0 DYSPAREUNIA 11/14/2013 ALLYN CRYPTOLOGIC TECHNICIAN, EDUARDO S 719.43 PAIN- WRIST 11/14/2013 ALLYN CRYPTOLOGIC TECHNICIAN, EDUARDO S V16.3 FAM HX CANCER, BREAST 11/14/2013 ALLYN CRYPTOLOGIC TECHNICIAN, EDUARDO S V72.31 ENGINE ROOM HELPER EXAM, ROUTINE 11/14/2013 ALLYN CRYPTOLOGIC TECHNICIAN, EDUARDO S V76.10 BREAST CANCER SCREENING 11/14/2013 ALLYN CRYPTOLOGIC TECHNICIAN, EDUARDO S V76.51 COLON CANCER SCREENING 11/14/2013 ALLYN CRYPTOLOGIC TECHNICIAN, EDUARDO S 611.6 GALACTORRHEA NOT ASSOCIATED WITH CHILDBIRTH 11/14/2013 ALLYN CRYPTOLOGIC TECHNICIAN, EDUARDO S 611.79 OTHER SIGNS AND SYMPTOMS IN BREAST 11/14/2013 ALLYN CRYPTOLOGIC TECHNICIAN, EDUARDO S 625.0 DYSPAREUNIA 11/14/2013 ALLYN CRYPTOLOGIC TECHNICIAN, EDUARDO S 719.43 PAIN- WRIST 11/14/2013 ALLYN CRYPTOLOGIC TECHNICIAN, EDUARDO S V16.3 FAM HX CANCER, BREAST 11/14/2013 ALLYN CRYPTOLOGIC TECHNICIAN, EDUARDO S V72.31 ENGINE ROOM HELPER EXAM, ROUTINE 11/14/2013 ALLYN CRYPTOLOGIC TECHNICIAN, EDUARDO S V76.10 BREAST CANCER SCREENING 11/14/2013 ALLYN CRYPTOLOGIC TECHNICIAN, EDUARDO S V76.51 COLON CANCER SCREENING 11/14/2013 ALLYN CRYPTOLOGIC TECHNICIAN, EDUARDO S 611.6 GALACTORRHEA NOT ASSOCIATED WITH CHILDBIRTH 11/14/2013 ALLYN CRYPTOLOGIC TECHNICIAN, EDUARDO S 611.79 OTHER SIGNS AND SYMPTOMS IN BREAST 11/14/2013 ALLYN CRYPTOLOGIC TECHNICIAN, EDUARDO S 625.0 DYSPAREUNIA 11/14/2013 ALLYN CRYPTOLOGIC TECHNICIAN, EDUARDO S 719.43 PAIN- WRIST 11/14/2013 ALLYN CRYPTOLOGIC TECHNICIAN, EDUARDO S V16.3 FAM HX CANCER, BREAST 11/14/2013 ALLYN CRYPTOLOGIC TECHNICIAN, EDUARDO S V72.31 ENGINE ROOM HELPER EXAM, ROUTINE 11/14/2013 ALLYN CRYPTOLOGIC TECHNICIAN, EDUARDO S V76.10 BREAST CANCER SCREENING 11/14/2013 ALLYN CRYPTOLOGIC TECHNICIAN, EDUARDO S V76.51 COLON CANCER SCREENING 11/14/2013 ALLYN CRYPTOLOGIC TECHNICIAN, EDUARDO S 611.6 GALACTORRHEA NOT ASSOCIATED WITH CHILDBIRTH 11/14/2013 ALLYN CRYPTOLOGIC TECHNICIAN, EDUARDO S 611.79 OTHER SIGNS AND SYMPTOMS IN BREAST 11/14/2013 ALLYN CRYPTOLOGIC TECHNICIAN, EDUARDO S 625.0 DYSPAREUNIA 11/14/2013 ALLYN CRYPTOLOGIC TECHNICIAN, EDUARDO S 719.43 PAIN- WRIST 11/14/2013 ALLYN CRYPTOLOGIC TECHNICIAN, EDUARDO S V16.3 FAM HX CANCER, BREAST 11/14/2013 ALLYN CRYPTOLOGIC TECHNICIAN, EDUARDO S V72.31 ENGINE ROOM HELPER EXAM, ROUTINE 11/14/2013 ALLYN CRYPTOLOGIC TECHNICIAN, EDUARDO S V76.10 BREAST CANCER SCREENING 11/14/2013 ALLYN CRYPTOLOGIC TECHNICIAN, EDUARDO S V76.51 COLON CANCER SCREENING 02/05/2014 ALLYN CRYPTOLOGIC TECHNICIAN, EDUARDO S 477.0 ALLERGIC RHINITIS DUE TO POLLEN 02/05/2014 ALLYN CRYPTOLOGIC TECHNICIAN, EDUARDO S 789.00 ABDOMINAL PAIN UNSPECIFIED SITE 02/05/2014 ALLYN CRYPTOLOGIC TECHNICIAN, EDUARDO S 477.0 ALLERGIC RHINITIS DUE TO POLLEN 02/05/2014 ALLYN CRYPTOLOGIC TECHNICIAN, EDUARDO S 789.00 ABDOMINAL PAIN UNSPECIFIED SITE 02/05/2014 ALLYN CRYPTOLOGIC TECHNICIAN, EDUARDO S 477.0 ALLERGIC RHINITIS DUE TO POLLEN 02/05/2014 ALLYN CRYPTOLOGIC TECHNICIAN, EDUARDO S 789.00 ABDOMINAL PAIN UNSPECIFIED SITE 02/05/2014 ALLYN CRYPTOLOGIC TECHNICIAN, EDUARDO S 477.0 ALLERGIC RHINITIS DUE TO POLLEN 02/05/2014 ALLYN CRYPTOLOGIC TECHNICIAN, EDUARDO S 789.00 ABDOMINAL PAIN UNSPECIFIED SITE 03/03/2014 BISI BUCK CRYPTOLOGIC TECHNICIAN Ot 599.0 URIN TRACT INFECTION NOS 03/03/2014 BISI BUCK CRYPTOLOGIC TECHNICIAN Ot 789.03 ABDOMINAL PAIN, RIGHT LOWER QUADRANT 03/21/2014 BISI BUCK CRYPTOLOGIC TECHNICIAN Ot 599.0 URIN TRACT INFECTION NOS 03/21/2014 BISI BUCK CRYPTOLOGIC TECHNICIAN Ot 789.03 ABDOMINAL PAIN, RIGHT LOWER QUADRANT 03/21/2014 NO BENTLEY A CRYPTOLOGIC TECHNICIAN Ot 611.6 03/21/2014 NO, BENTLEY A CRYPTOLOGIC TECHNICIAN Ot 611.79 03/21/2014 NO, BENTLEY A CRYPTOLOGIC TECHNICIAN Ot 625.0 03/21/2014 NO, BENTLEY A CRYPTOLOGIC TECHNICIAN Ot V16.3 03/21/2014 NO, BENTLEY A CRYPTOLOGIC TECHNICIAN Ot V72.31 03/21/2014 NO, BENTLEY A CRYPTOLOGIC TECHNICIAN Ot V76.11 03/21/2014 NO, BENTLEY A CRYPTOLOGIC TECHNICIAN Ot V76.51 04/10/2014 ALLYN CRYPTOLOGIC TECHNICIAN, EDUARDO S 112.3 CANDIDIASIS OF SKIN AND NAILS 04/10/2014 ALLYN CRYPTOLOGIC TECHNICIAN, EDUARDO S V04.81 FLU SHOT 04/10/2014 ALLYN CRYPTOLOGIC TECHNICIAN, EDUARDO S 112.3 CANDIDIASIS OF SKIN AND NAILS 04/10/2014 ALLYN CRYPTOLOGIC TECHNICIAN, EDUARDO S V04.81 FLU SHOT 04/10/2014 ALLYN CRYPTOLOGIC TECHNICIAN, EDUARDO S 112.3 CANDIDIASIS OF SKIN AND NAILS 04/10/2014 ALLYN CRYPTOLOGIC TECHNICIAN, EDUARDO S V04.81 FLU SHOT 07/23/2014 ALLYN CRYPTOLOGIC TECHNICIAN, EDUARDO S 388.70 OTALGIA 07/23/2014 ALLYN CRYPTOLOGIC TECHNICIAN, EDUARDO S 465.9 UPPER RESPIRATORY INFECTION 07/23/2014 ALLYN CRYPTOLOGIC TECHNICIAN, EDUARDO S 780.4 DIZZINESS AND VERTIGO 07/23/2014 ALLYN CRYPTOLOGIC TECHNICIAN, EDUARDO S 786.2 COUGH 07/23/2014 ALLYN CRYPTOLOGIC TECHNICIAN, EDUARDO S 388.70 OTALGIA 07/23/2014 ALLYN CRYPTOLOGIC TECHNICIAN, EDUARDO S 465.9 UPPER RESPIRATORY INFECTION 07/23/2014 ALLYN CRYPTOLOGIC TECHNICIAN, EDUARDO S 780.4 DIZZINESS AND VERTIGO 07/23/2014 ALLYN CRYPTOLOGIC TECHNICIAN, EDUARDO S 786.2 COUGH 08/27/2014 ALLYN CRYPTOLOGIC TECHNICIAN, EDUARDO S 493.90 ASTHMA UNSPECIFIED 08/27/2014 ALLYN CRYPTOLOGIC TECHNICIAN, EDUARDO S 599.0 URINARY TRACT INFECTION 08/27/2014 ALLYN CRYPTOLOGIC TECHNICIAN, EDUARDO S 788.1 DYSURIA 10/10/2014 NO, BENTLEY A CRYPTOLOGIC TECHNICIAN Ot 611.6 10/10/2014 NO, BENTLEY A CRYPTOLOGIC TECHNICIAN Ot 611.79 10/10/2014 NO, BENTLEY A CRYPTOLOGIC TECHNICIAN Ot 625.0 10/10/2014 NO, BENTLEY A CRYPTOLOGIC TECHNICIAN Ot V16.3 10/10/2014 NO, BENTLEY A CRYPTOLOGIC TECHNICIAN Ot V72.31 10/10/2014 NO, BENTLEY A CRYPTOLOGIC TECHNICIAN Ot V76.11 10/10/2014 NO, BENTLEY A CRYPTOLOGIC TECHNICIAN Ot V76.51 10/10/2014 VLADIMIR MARK DO Ot 133.0 SCABIES 10/10/2014 DEEDEE ABRAHAM VLADIMIR Ronnie Ot 782.1 NONSPECIF SKIN ERUPT NEC 10/24/2014 HAMZAH SILVA, NURA Trujillo Ot 133.0 SCABIES 11/26/2014 ELIGIO JUAREZ DO Ot 133.0 SCABIES 11/26/2014 ELIGIO JUAREZ DO Ot 782.1 NONSPECIF SKIN ERUPT NEC 02/11/2015 BISI BUCK CRYPTOLOGIC TECHNICIAN Ot T18.128A FOOD IN ESOPHAGUS CAUSING OTHER INJURY, 02/11/2015 BISI BUCK CRYPTOLOGIC TECHNICIAN Ot X58.XXXA EXPOSURE TO OTHER SPECIFIED FACTORS, INI 02/11/2015 BISI BUCK CRYPTOLOGIC TECHNICIAN Ot Y99.8 OTHER EXTERNAL CAUSE STATUS 08/21/2015 [...] EFFECT OF GLUCOCORT/SYNTH ANALOG 01/06/2016 BENTLEY SARABIA CRYPTOLOGIC TECHNICIAN Ot 611.6 GALACTORRHEA-NONOBSTET 01/06/2016 BENTLEY SARABIA APRN Ot 611.79 SYMPTOMS IN BREAST NEC 01/06/2016 BENTLEY SARABIA CRYPTOLOGIC TECHNICIAN Ot 625.0 DYSPAREUNIA 01/06/2016 BENTLEY SARABIA APRN Ot V16.3 FAMILY HX-BREAST MALIG 01/06/2016 BENTLEY SARABIA APRN Ot V72.31 ROUTINE GYNECOLOGICAL EXAMINATION 01/06/2016 BENTLEY SARABIA CRYPTOLOGIC TECHNICIAN Ot V76.11 SCRN MAMMO-HIGH RISK PT, MALIGNANT NEOPL 01/06/2016 BENTLEY SARABIA CRYPTOLOGIC TECHNICIAN Ot V76.51 SCREEN MAL NEOP-COLON 01/07/2016 ELVIA [...] 06/19/2016 BISI BUCK APRN Ot Z79.899 OTHER CLOTH COLORER (CURRENT) DRUG THERAPY 06/19/2016 BISI BUCK APRN [...] ANXIETY DISORDER, UNSPECIFIED 06/22/2016 BUCK, PETER J CRYPTOLOGIC TECHNICIAN Ot I10 ESSENTIAL (PRIMARY) HYPERTENSION 06/22/2016 BISI BUCK CRYPTOLOGIC TECHNICIAN Ot J44.9 CHRONIC OBSTRUCTIVE PULMONARY DISEASE, U 06/22/2016 BISI BUCK CRYPTOLOGIC TECHNICIAN Ot N39.0 URINARY TRACT INFECTION, SITE NOT SPECIF 06/22/2016 BISI BUCK APRN Ot R10.31 RIGHT LOWER QUADRANT PAIN 06/22/2016 BISI BUCK CRYPTOLOGIC TECHNICIAN Ot Z79.899 OTHER CLOTH COLORER (CURRENT) DRUG THERAPY 06/22/2016 BISI BUCK CRYPTOLOGIC TECHNICIAN Ot Z90.49 ACQUIRED ABSENCE OF OTHER SPECIFIED PART 06/22/2016 BISI BUCK CRYPTOLOGIC TECHNICIAN Ot Z90.710 ACQUIRED ABSENCE OF BOTH CERVIX AND UTER 06/22/2016 BISI BUCK CRYPTOLOGIC TECHNICIAN Ot Z90.89 ACQUIRED ABSENCE OF OTHER ORGANS 06/22/2016 BSII BUCK CRYPTOLOGIC TECHNICIAN Ot E11.9 TYPE 2 DIABETES MELLITUS WITHOUT COMPLIC 06/22/2016 BISI BUCK CRYPTOLOGIC TECHNICIAN Ot F41.9 ANXIETY DISORDER, UNSPECIFIED 06/22/2016 BISI BUCK CRYPTOLOGIC TECHNICIAN Ot I10 ESSENTIAL (PRIMARY) HYPERTENSION 06/22/2016 BISI BUCK APRN Ot J44.9 CHRONIC OBSTRUCTIVE PULMONARY DISEASE, U 06/22/2016 BISI BUCK APRN Ot N39.0 URINARY TRACT INFECTION, SITE NOT SPECIF 06/22/2016 BISI BUCK APRN Ot R10.31 RIGHT LOWER QUADRANT PAIN 06/22/2016 BISI BUCK APRN Ot Z79.899 OTHER ALF (CURRENT) DRUG THERAPY 06/22/2016 BISI BUCK CRYPTOLOGIC TECHNICIAN Ot Z90.49 ACQUIRED ABSENCE OF OTHER SPECIFIED PART 06/22/2016 BISI BUCK CRYPTOLOGIC TECHNICIAN Ot Z90.710 ACQUIRED ABSENCE OF BOTH CERVIX AND UTER 06/22/2016 BISI BUCK CRYPTOLOGIC TECHNICIAN Ot Z90.89 ACQUIRED ABSENCE OF OTHER ORGANS [...] 12/21/2016 BRIONNA HARLEY MD, Ot Z79.899 OTHER CLOTH COLORER (CURRENT) DRUG THERAPY 05/14/2017 NURA GOODSON MD, [...] Ot Z91.5 PERSONAL HISTORY OF SELF-HARM 05/14/2017 UNRA GOODSON MD Ot Z98.51 TUBAL LIGATION STATUS [...] R10.10 UPPER ABDOMINAL PAIN, UNSPECIFIED 10/22/2017 MARY LACALA MD Ot R10.12 LEFT UPPER QUADRANT PAIN 10/22/2017 MARY ALCALA MD Ot Z79.51 ALF (CURRENT) USE OF INHALED STERO 10/22/2017 MARY [...] PAIN 10/25/2017 MARY ALCALA MD Ot Z79.51 ALF (CURRENT) USE OF INHALED STERO 10/25/2017 MARY ALCALA MD Ot Z80.0 FAMILY HISTORY OF MALIGNANT NEOPLASM OF 10/25/2017 MARY ALCALA MD Ot Z82.49 FAMILY HX OF ISCHEM HEART DIS AND OTH DI 10/25/2017 MARY ALCALA MD Ot Z87.19 PERSONAL HISTORY OF OTHER DISEASES OF TH 10/25/2017 MARY ACLALA MD Ot Z87.440 PERSONAL HISTORY OF URINARY [...] UTER 12/14/2017 Ot Z98.51 TUBAL LIGATION STATUS 01/25/2018 CRICKET SILVA, BRIONNA Nguyen Ot E03.9 HYPOTHYROIDISM, UNSPECIFIED 01/25/2018 CRICKET SILVA, BRIONNA Nguyen Ot F10.920 ALCOHOL USE, UNSPECIFIED WITH INTOXICATI 01/25/2018 CRICKET SILVA, BRIONNA Nguyen Ot F25.9 SCHIZOAFFECTIVE DISORDER, UNSPECIFIED 01/25/2018 BRIONNA HARLEY MD, Ot F32.9 MAJOR DEPRESSIVE DISORDER, SINGLE EPISOD 01/25/2018 BRIONNA HARLEY MD, Ot F41.9 ANXIETY DISORDER, UNSPECIFIED 01/25/2018 BRIONNA HARLEY MD, Ot R45.851 SUICIDAL IDEATIONS Procedures Code [place] [address] MEASURE BLOOD OXYGEN LEVEL 06/28/2012 17673 ROUTINE VENIPUNCTURE 04/24/2013 37659 CBC 04/24/2013 [id number] GFR CALC (RESULT ONLY) 04/24/2013 65775 CMP 04/24/2013 16604 LIPID PANEL 04/24/2013 00279 CULTURE URINE 06/20/2013 80734 UA LONG DIP 06/20/2013 40979 XRAY HAND RIGHT MIN 3 VIEWS 11/14/2013 55804 MAMMOGRAM DX, STEFFANIE 11/14/2013 62532 ROUTINE VENIPUNCTURE 02/05/2014 30222 CBC 02/05/2014 95085 CMP 02/05/2014 27704 LIPID PANEL 02/05/2014 [id number] GFR CALC (RESULT ONLY) 02/05/2014 59063 UA LONG DIP 08/27/2014 Results Test Result [...] culture - 01/06/16 16:26 Bacterial urine culture [id number] NRG COLONY COUNT >100,000/ML NRG URINE CULTURE [...] 0.0-0.1 Blood manual differential performed detection - 02/17/17 17:15 Blood monocytes/100 leukocytes 5 % [facility] Manual blood segmented neutrophils/100 leukocytes 51 % NR Blood band neutrophils/100 leukocytes 1 % NR Manual blood lymphocytes/100 leukocytes 42 % NR Manual eosinophils/100 leukocytes in nose 1 % [facility] Manual blood basophils/100 leukocytes 0 % [facility] Blood erythrocyte morphology finding identification NORMAL [facility] Comprehensive metabolic panel - 06/19/16 [...] calculation of estimated glomerular filtration rate 57 NR Serum or plasma glucose measurement (mass/volume) 122 [...] culture - 06/19/16 19:14 Bacterial urine culture [id number] NRG COLONY COUNT >100,000/ML NRG FTX;REPORTABLE MIXED [...] culture - 12/18/16 02:37 Bacterial urine culture [id number] NRG COLONY COUNT 10,000/ML - 100,000/ML NRG [...] plasma ethanol measurement (mass/volume) 190 mg/dL <10 Methicillin resistant Staphylococcus aureus (MRSA) screening culture - 21:05 Methicillin resistant Staphylococcus aureus (MRSA) screening culture NEG NRG Complete blood count (CBC) with automated white blood cell (WBC) differential - 01/25/18 03:10 Blood leukocytes automated count (number/volume) 6.0 10*3/uL 4.3-11.0 Blood erythrocytes automated count (number/volume) 3.85 10*6/uL 4.35-5.85 Venous blood hemoglobin measurement (mass/volume) 11.5 g/dL 11.5-16.0 Blood hematocrit (volume fraction) 34 % 35-52 Automated erythrocyte mean corpuscular volume 89 [foz_us] 80-99 Automated erythrocyte mean corpuscular hemoglobin (mass per erythrocyte) 30 pg 25-34 Automated erythrocyte mean corpuscular hemoglobin concentration measurement ( mass/volume) 34 g/dL 32-36 Automated erythrocyte distribution width ratio 14.5 % 10.0-14.5 Automated blood platelet count (count/volume) 271 10*3/uL 130-400 Automated blood platelet mean volume measurement 8.2 [foz_us] 7.4-10.4 Automated blood neutrophils/100 leukocytes 51 % 42-75 Automated blood lymphocytes/100 leukocytes 39 % 12-44 Blood monocytes/100 leukocytes 6 % 0-12 Automated blood eosinophils/100 leukocytes 3 % 0-10 Automated blood basophils/100 leukocytes 0 % 0-10 Blood neutrophils automated count (number/volume) 3.1 10*3 1.8-7.8 Blood lymphocytes automated count (number/volume) 2.3 10*3 1.0-4.0 Blood monocytes automated count (number/volume) 0.4 10*3 0.0-1.0 Automated eosinophil count 0.2 10*3/uL 0.0-0.3 Automated blood basophil count (count/volume) 0.0 10*3/uL 0.0-0.1 Whole blood basic metabolic panel - 01/25/18 03:10 Serum or plasma sodium measurement (moles/volume) 143 mmol/L 135-145 Serum or plasma potassium measurement (moles/volume) 4.0 mmol/L 3.6-5.0 Serum or plasma chloride measurement (moles/volume) 108 mmol/L 98-107 Carbon dioxide 20 mmol/L 21-32 Serum or plasma anion gap determination (moles/volume) 15 mmol/L 5-14 Serum or plasma urea nitrogen measurement (mass/volume) 12 mg/dL 7-18 Serum or plasma creatinine measurement (mass/volume) 0.82 mg/dL 0.60-1.30 Serum or plasma urea nitrogen/creatinine mass ratio 15 NRG Serum or plasma creatinine measurement with calculation of estimated glomerular filtration rate > NRG Serum or plasma glucose measurement (mass/volume) 88 mg/dL 70-105 Serum or plasma calcium measurement (mass/volume) 9.3 mg/dL 8.5-10.1 Serum or plasma phosphate measurement (mass/volume) - 01/25/18 03:10 Serum or plasma phosphate measurement (mass/volume) 4.5 mg/dL 2.3-4.7 Magnesium - 01/25/18 03:10 Magnesium 2.3 mg/dL 1.8-2.4 Encounters ACCT No. Visit Date/Time Discharge Status Pt. Type Provider Facility Loc./Unit Complaint [id number] 08/27/2014 08:55:00 08/27/2014 23:59:59 [facility] Outpatient EDUARDO GRUBER APRN [id number] 07/23/2014 10:13:00 07/23/2014 23:59:59 [facility] Outpatient EDUARDO GRUBER APRN [id number] 04/10/2014 08:19:00 04/10/2014 23:59:59 CLS Outpatient EDUARDO GRUBER APRN S [id number] 02/05/2014 08:51:00 02/05/2014 23:59:59 CLS Outpatient EDUARDO GRUBER APRN S [id number] 11/14/2013 09:27:00 11/14/2013 23:59:59 CLS Outpatient BENTLEY SARABIA APRN [id number] 11/14/2013 08:46:00 11/14/2013 23:59:59 CLS Outpatient EDUARDO GRUBER APRN S [id number] 10/26/2013 16:57:00 10/26/2013 23:59:59 CLS Outpatient EDUARDO GRUBER APRN S [id number] 06/20/2013 08:26:00 06/20/2013 23:59:59 CLS Outpatient ALLYN MAAYANEDUARDO S [id number] 05/01/2013 09:33:00 05/01/2013 23:59:59 CLS Outpatient ALLYN AMAYANEDUARDO S [id number] 04/24/2013 09:37:00 04/24/2013 23:59:59 CLS Outpatient ELVIA RUIZ DO [id number] 12/19/2012 06:36:00 12/19/2012 23:59:59 CLS Outpatient CHRISS MENDEZ MD [id number] 06/27/2012 13:49:00 06/27/2012 23:59:59 CLS Outpatient [id number] 06/27/2012 13:49:00 06/27/2012 23:59:59 CLS Outpatient [id number] 10/22/2016 08:35:00 Document Registration [id number] 06/13/2018 10:20:00 06/13/2018 23:59:59 CLS Outpatient ALLYN AMAYANEDUARDO S [facility] [id number] 08/02/2017 10:17:00 Document Registration [id number] 03/27/2016 18:05:00 Document Registration [id number] 01/24/2018 20:48:00 01/25/2018 21:19:00 DIS Inpatient CRICKET SILVA, BRIONNA [facility] ICU SUICIDAL IDEATION,ETOH INTOXICATION [id number] 10/27/2017 10:20:00 10/27/2017 23:59:59 CLS Outpatient EDUARDO GRUBER [facility] RAD SCREENING [id number] 10/22/2017 10:06:00 10/22/2017 14:39:00 DIS Emergency MARY ALCALA MD [facility] ER V/D/DIZZINESS [id number] 05/14/2017 08:08:00 05/14/2017 12:14:00 DIS Emergency HAMZAH SILVA, NURA Trujillo [facility] ER FLU [id number] 12/18/2016 08:50:00 12/21/2016 11:15:00 DIS Inpatient CRICKET SILVA, BRIONNA Nguyen [facility] 4TH SUICIDE IDEATION;PENDING ADMIT TO [place] [id number] 07/27/2016 09:45:00 07/27/2016 12:05:00 DIS Outpatient ARUN CABRERA MD [facility] ENDO RECTAL PAIN;RECTAL BLEEDING [id number] 07/23/2016 06:20:00 07/23/2016 17:02:00 DIS Outpatient ARUN CABRERA MD [facility] PREOP RECTAL PAIN; BLEEDING [id number] 07/13/2016 09:22:00 07/13/2016 12:05:00 DIS Outpatient ARUN CABRERA MD [facility] ENDO RECTAL BLEEDING [id number] 07/08/2016 09:22:00 07/08/2016 09:49:00 DIS Outpatient ARUN CABRERA MD [facility] PREOP RECTAL BLEEDING [id number] 06/19/2016 19:12:00 06/19/2016 21:25:00 DIS Emergency BISI BUCK APRN [facility] ER RECTAL BLEEDING, PAIN [id number] 04/06/2016 10:55:00 04/06/2016 23:59:59 CLS Outpatient ARUN CABRERA MD [facility] RAD CELLULITIS [id number] 03/31/2016 08:46:00 03/31/2016 16:00:00 DIS Outpatient TONI MA MD [facility] WOUNDCARE [id number] 01/06/2016 20:30:00 01/07/2016 16:22:00 DIS Inpatient ELVIA RUIZ DO [facility] 4TH RLQ ABD PAIN,N/V,UTI [id number] 08/20/2015 13:13:00 08/21/2015 10:30:00 DIS Inpatient SHIVA MEREDITH MD [facility] 4TH INTRACTABLE VERTIGO HYPERTENSIVE URGENCY [id number] 02/11/2015 19:27:00 02/11/2015 21:00:00 DIS Emergency BISI BUCK CRYPTOLOGIC TECHNICIAN [facility] ER POSS FOREIGN BODY [id number] 11/26/2014 09:55:00 11/26/2014 10:47:00 DIS Emergency ELIGIO JUAREZ DO [facility] ER RASH [id number] 10/24/2014 08:39:00 10/24/2014 11:11:00 DIS Emergency NURA GOODSON MD [facility] ER SCABIES [id number] 10/10/2014 08:50:00 10/10/2014 09:24:00 DIS Emergency DEEDEEVLADIMIR Villagomez DO [facility] ER RASH [id number] 03/21/2014 14:10:00 03/21/2014 15:45:00 DIS Emergency BISI BUCK CRYPTOLOGIC TECHNICIAN [facility] ER ABD PAIN [id number] 03/03/2014 13:44:00 03/03/2014 17:01:00 DIS Emergency BISI BUCK CRYPTOLOGIC TECHNICIAN [facility] ER R SIDE LOWER ABD PAIN [id number] 11/28/2013 11:21:00 11/28/2013 23:59:59 CLS Outpatient BENTLEY SARABIA CRYPTOLOGIC TECHNICIAN [facility] RAD RT NIPPLE INVERTED, DISCOLORATION [id number] 10/24/2013 16:35:00 10/24/2013 16:58:00 DIS Emergency BISI BUCK CRYPTOLOGIC TECHNICIAN [facility] ER RASH [id number] 08/14/2013 10:40:00 08/14/2013 11:15:00 DIS Emergency VLADIMIR MARK DO [facility] ER SWOLLEN FINGER RING STUCK [id number] 11/23/2012 13:52:00 11/30/2012 10:52:00 DIS Outpatient SHAQ SILVA, RENETTA [facility] SDC ACUTE ABD PAIN [id number] 06/24/2018 14:29:00 ACT Emergency MARY ALCALA MD [facility] ER N/V/D;COUGH [id number] 12/14/2017 19:34:00 Document Registration [id number] 03/21/2014 17:14:00 Document Registration [id number] 03/21/2014 17:14:00 Document Registration [id number] 03/21/2014 17:14:00 Document Registration [id number] 03/21/2014 17:14:00 Document Registration [id number] 06/20/2012 09:23:00 Document Registration [id number] 05/09/2012 07:52:00 Document Registration [id number] 12/11/2011 22:50:00 Document Registration [id number] 08/24/2011 22:14:00 Document Registration [id number] 20:37:00 Document Registration [id number] 09/19/2010 20:35:00 Document Registration [id number] 07/01/2010 23:57:00 Document Registration
[2018-06-24 15:19] LABS: ALANINE AMINOTRANSFERASE 35 U/L (0-55); ALBUMIN 5.2 GM/DL (3.2-4.5); ALKALINE PHOSPHATASE 59 U/L (40-136); BILIRUBIN,TOTAL 0.3 MG/DL (0.1-1.0); BUN/CREATININE RATIO 15; CALCIUM 10.6 MG/DL (8.5-10.1); CARBON DIOXIDE 21 MMOL/L (21-32); CHLORIDE 104 MMOL/L (98-107); CREATININE SERUM 1.14 MG/DL (0.60-1.30); GFR ESTIMATED 49; GLUCOSE 129 MG/DL (70-105); SODIUM 140 MMOL/L (135-145); TOTAL PROTEIN 9.4 GM/DL (6.4-8.2)
--- NOTE | 2018-06-24 15:53 | NUR ---
PATIENT VOIDED IN BEDPAN. URINE COLLECTED AND SENT TO LAB.
[2018-06-24 16:02] LABS: BILIRUBIN,URINE NEGATIVE (NEGATIVE); COLOR,URINE YELLOW; GLUCOSE, URINE (UA) NEGATIVE (NEGATIVE); KETONES,URINE NEGATIVE (NEGATIVE); LEUKOCYTE ESTERASE ,URINE 2+ (NEGATIVE); NITRITE,URINE NEGATIVE (NEGATIVE); PH,URINE 5 (5-9); PROTEIN,URINE 3+ (NEGATIVE); UROBILINOGEN,URINE NORMAL (NORMAL)
[2018-06-24] MEDS ORDERED: NS IV 1000 ML 1,000 ML IV ONE (16:07)
[2018-06-24 16:12] LABS: CLARITY,URINE CLOUDY
[2018-06-24 16:15] LABS: AMORPHOUS SEDIMENT,UR LARGE AMOR URATES /LPF; BACTERIA,URINE MODERATE /HPF
[2018-06-24] MEDS ORDERED: RT-ALBUTEROL/IPRATROPIUM 3 ML (DUONEB) VIAL INH ONE (16:15)
--- NOTE | 2018-06-24 16:23 | Diagnostic Imaging Report ---
INDICATION: Productive coughing x 3 days, fever, chest hurts when coughing EXAMINATION: PA and lateral views of the chest were obtained. COMPARISON: Study of 05/14/2017. FINDINGS: Heart size and pulmonary vascularity are within normal limits, and the lungs are clear, bilaterally. IMPRESSION: Unremarkable chest. Dictated by: Dictated on workstation # [id number]
[2018-06-24] MEDS ORDERED: predniSONE 20 MG TAB PO ONE (17:00)
[2018-06-24] MEDS ORDERED: CEFD300C3 PO (17:26)
[2018-06-24] MEDS ORDERED: PROM5SYR PO (17:26)
[2018-06-24] MEDS ORDERED: ONDA4TAB11 PO (17:26)
[2018-06-24] MEDS ORDERED: PRD20T PO (17:26)
[2018-06-24 17:40] VITALS: BP 160/99
== END 2018-06-24 17:47 | disposition home or self-care (01) ==
LOC: EDUNIT# 14:28 → ER 14:29
DX: J06.9 Acute upper respiratory infection, unspecified (principal); J44.0 Chronic obstructive pulmonary disease with (acute) lower respiratory infection; J20.9 Acute bronchitis, unspecified; N39.0 Urinary tract infection, site not specified; G47.30 Sleep apnea, unspecified; I10 Essential (primary) hypertension; G43.909 Migraine, unspecified, not intractable, without status migrainosus; G40.909 Epilepsy, unspecified, not intractable, without status epilepticus; K21.9 Gastro-esophageal reflux disease without esophagitis; E11.9 Type 2 diabetes mellitus without complications; F41.9 Anxiety disorder, unspecified; F32.9 Major depressive disorder, single episode, unspecified; Z80.0 Family history of malignant neoplasm of digestive organs; Z82.49 Family history of ischemic heart disease and other diseases of the circulatory system; Z91.5 Personal history of self-harm; Z87.19 Personal history of other diseases of the digestive system; Z87.440 Personal history of urinary (tract) infections; Z88.0 Allergy status to penicillin; Z88.7 Allergy status to serum and vaccine; Z79.51 Long term (current) use of inhaled steroids; Z98.890 Other specified postprocedural states; Z90.49 Acquired absence of other specified parts of digestive tract; Z90.710 Acquired absence of both cervix and uterus; Z98.51 Tubal ligation status
CPT/HCPCS: 36415; 71046; 80053; 81000; 83605; 85025; 87040; 87088; 87804; 94640; 96361; 96374; 96375

== ENCOUNTER 2019-03-26 21:43 | Emergency (ER) | payer MEDICAID ==
[~2019-03-26] VITALS: Ht 157 cm; Wt 89.0 kg
[~2019-03-26 21:43] MED LIST changes: +CEFD300C3 PO; +ONDA4TAB11 PO; +PROM5SYR PO
[2019-03-26] MEDS ORDERED: ONDANSETRON 4 MG/2 ML (SDV) Z0FRAN IVP ONE (22:00)
[2019-03-26] MEDS ORDERED: fentaNYL INJECTION 100 MCG/2 ML AMP IVP ONE (22:00)
[2019-03-26] MEDS ORDERED: PANTOPRAZOLE 40 MG (PROTONIX) VIAL IV ONE (22:00)
[2019-03-26 22:20] LABS: BILIRUBIN,URINE NEGATIVE (NEGATIVE); CLARITY,URINE CLEAR; COLOR,URINE YELLOW; GLUCOSE, URINE (UA) NEGATIVE (NEGATIVE); KETONES,URINE NEGATIVE (NEGATIVE); LEUKOCYTE ESTERASE ,URINE NEGATIVE (NEGATIVE); NITRITE,URINE NEGATIVE (NEGATIVE); PROTEIN,URINE NEGATIVE (NEGATIVE)
[2019-03-26 22:35] LABS: AMPHETAMINE SCREEN, URINE NEGATIVE (NEGATIVE); BARBITURATE SCREEN URINE NEGATIVE (NEGATIVE); BENZODIAZEPINES SCREEN URINE NEGATIVE (NEGATIVE); CANNABINOID SCREEN, URINE NEGATIVE (NEGATIVE); COCAINE SCREEN URINE NEGATIVE (NEGATIVE); METHADONE STAT NEGATIVE (NEGATIVE); METHAMPHETAMINE SCREEN URINE S NEGATIVE (NEGATIVE); OPIATE SCREEN URINE NEGATIVE (NEGATIVE); OXYCODONE STAT NEGATIVE (NEGATIVE); PROPOXYPHENE STAT NEGATIVE (NEGATIVE); TRICYCLIC ANTIDEPRESSANTS SCRE NEGATIVE (NEGATIVE)
[2019-03-26 22:37] LABS: AMORPHOUS SEDIMENT,UR FEW AMOR URATES /LPF; BACTERIA,URINE TRACE /HPF; RBC,URINE 0-2 /HPF; WBC,URINE 0-2 /HPF
[2019-03-26 23:41] LABS: BASOPHILS % (AUTO) 0 % (0-10); EOSINOPHILS # (AUTO) 0.7 10^3/uL (0.0-0.3); EOSINOPHILS % (AUTO) 8 % (0-10); HEMATOCRIT 34 % (35-52); HEMOGLOBIN 11.7 G/DL (11.5-16.0); LYMPHOCYTES # (AUTO) 3.2 X 10^3 (1.0-4.0); LYMPHOCYTES % (AUTO) 36 % (12-44); MEAN CORPUSCULAR HEMOGLOBIN 30 PG (25-34); MEAN CORPUSCULAR HGB CONC 34 G/DL (32-36); MEAN CORPUSCULAR VOLUME 87 FL (80-99); MEAN PLATELET VOLUME 8.3 FL (7.4-10.4); MONOCYTES # (AUTO) 0.4 X 10^3 (0.0-1.0); MONOCYTES % (AUTO) 5 % (0-12); NEUTROPHILS # (AUTO) 4.7 X 10^3 (1.8-7.8); NEUTROPHILS % (AUTO) 52 % (42-75); PLATELET COUNT 294 10^3/uL (130-400); RED CELL DISTRIBUTION WIDTH 13.5 % (10.0-14.5)
[2019-03-26 23:52] LABS: PROTHROMBIN TIME PATIENT 13.7 SEC (12.2-14.7)
[2019-03-27 00:02] LABS: ALANINE AMINOTRANSFERASE 20 U/L (0-55); ALBUMIN 4.3 GM/DL (3.2-4.5); ALKALINE PHOSPHATASE 53 U/L (40-136); AMYLASE 58 U/L (25-125); BILIRUBIN,TOTAL 0.2 MG/DL (0.1-1.0); BUN/CREATININE RATIO 21; CALCIUM 9.1 MG/DL (8.5-10.1); CARBON DIOXIDE 19 MMOL/L (21-32); CHLORIDE 110 MMOL/L (98-107); CREATININE SERUM 0.77 MG/DL (0.60-1.30); GFR ESTIMATED > 60; GLUCOSE 94 MG/DL (70-105); LIPASE 14 U/L (8-78); MAGNESIUM 2.1 MG/DL (1.6-2.4); POTASSIUM 4.3 MMOL/L (3.6-5.0); SODIUM 142 MMOL/L (135-145); TOTAL PROTEIN 7.6 GM/DL (6.4-8.2)
[2019-03-27] MEDS ORDERED: NS 100 ML (IVPB) BAG IV ONE (00:15)
[2019-03-27] MEDS ORDERED: IOHEXOL 350 MG/ML 100 ML (OMNIPAQUE 350) VIAL IV ONE (00:15)
[2019-03-27] MEDS ORDERED: HOLD METFORMIN - RECEIVED CONTRAST 20 ML VIAL IV SCH (00:15)
[2019-03-27] MEDS ORDERED: HYOS0.1283 SL (02:23)
[2019-03-27] MEDS ORDERED: ONDA4TAB11 PO (02:23)
[2019-03-27] MEDS ORDERED: PANT40TA2 PO (02:23)
--- NOTE | 2019-03-27 02:24 | ED Abdominal Pain ---
General Chief Complaint: Abdominal/GI Problems Stated Complaint: ABD PAIN,BLOODY STOOLS Nursing Triage Note: PT STATES SHE HAS HAD PERSISTENT ABD PAIN THAT WORSENS WITH BOWEL MOVEMENTS. PT STATES HER BM'S BEGAN TO TURN DARK RED TWO DAYS AGO. PAIN LOCALIZED TO RLQ. PT STATES SHE HAS HAD AN APPENDECTOMY Sepsis Screen: No Definite Risk Source of Information: Patient, Old Records Exam Limitations: Other (PT GIVES INCONSISTENT INFORMATION) History of Present Illness Date Seen by Provider: Mar 26, 2019 Time Seen by Provider: 21:42 Initial Comments PT ARRIVES VIA EMS FROM HOME C/O RLQ PAIN FOR THE LAST 4 DAYS STATES "I'M BLEEDING BLOOD" --STATES SHE HAS HAD 4 "DARK RED" BOWEL MOVEMENTS TODAY, AND VOMITED X 1 TODAY--NO BLOOD IN EMESIS GIVES CONFLICTING INFORMATION ABOUT STOOLS--FIRST STATES THAT SHE HAD DIARRHEA THE FIRST 2 DAYS, THEN NONE SINCE. THEN STATES THE DIARRHEA WAS TODAY. CONSTANTLY CHANGES HER STORY, WITH SEVERAL OTHER VARIATIONS OF THIS. STATES HAVING BM MAKES THE PAIN WORSE. NO FEVER NO URINARY SYMPTOMS AND VOIDING A NORMAL AMOUNT STATES SHE HAS BEEN EATING AND DRINKING NORMALLY STATES SHE HAS NOT SOUGHT CARE AT ANY TIME FOR THIS PROBLEM, AND SYMPTOMS ARE NO DIFFERENT TODAY PT STATES HER ONLY SURGERIES HAVE BEEN A HYSTERECTOMY, 1 AND AN APPENDECTOMY ON REVIEW OF OLD RECORDS, PT HAS ALSO HAD PREVIOUS BTL, BSO, AND CHOLECYSTECTOMY. SHE ALSO HAD LAPAROSCOPY FOR SBO WITH LYSIS OF ADHESIONS. ADDITIONALLY, PT HAS HAD THESE EXACT SAME COMPLAINTS ON MULTIPLE OCCASIONS IN THE PAST--WORK-UP'S HAVE BEEN NEGATIVE. PT HAS HAD MULTIPLE CT SCANS, ULTRASOUNDS, AND ENDOSCOPIES--LAST COLONOSCOPY WAS 07/27/16 AND SHOWED SOME INTERNAL HEMORRHOIDS AND VERY FEW SIGMOID DIVERTICULA. PT CLAIMS SHE "HAS NEVER DRANK"-THEN LATER ADMITS TO "ONE BEER" TONIGHT. IS NOTED THAT PT HAS BEEN INTOXICATED ON MULTIPLE PREVIOUS VISITS. PT ALSO REEKS OF ALCOHOL TONIGHT PT ALSO STATES SHE "HAS NEVER SMOKED IN HER LIFE" --YET PT REEKS OF CIGARETTES--ON HER CLOTHING AND ON HER BREATH, AND PT HAS ADMITTED TO SMOKING AT LEAST 1 PPD, ON MULTIPLE PREVIOUS VISITS. PT ALSO HAS AN EXTENSIVE PSYCH HISTORY PCP: PETER, [facility] [employer] EDUARDO GRUBER Allergies and Home Medications Allergies Coded Allergies: Penicillins (Verified Allergy, Unknown, 08/20/15) tuberculin, purified protein deriva (Verified Adverse Reaction, Mild, 08/20/15) Home Medications Albuterol Sulfate 8.5 Gm Hfa.aer.ad, 2 PUFF INH Q6H PRN for SHORTNESS OF BREATH, (Reported) Aripiprazole 10 Mg Tablet, 10 MG PO DAILY, (Reported) Cefdinir 300 Mg Capsule, 300 MG PO BID Prescribed by: MARY ALCALA on 06/24/181725 Cetirizine HCl 10 Mg Tablet, 10 MG PO DAILY, (Reported) Clotrimazole/Betamethasone Dip 15 Gm Cream..g., TOP DAILY, (Reported) Dicyclomine HCl 20 Mg Tablet, 20 MG PO BID, (Reported) Fluticasone Propionate 16 Gm [place].susp, 2 SPRAYS NS DAILY, (Reported) Hyoscyamine Sulfate 0.125 Mg Tab.subl, 1-2 TAB SL Q4H Prescribed by: VLADIMIR MARK on 03/27/19222 Lovastatin 40 Mg Tablet, 40 MG PO DAILY, (Reported) Montelukast Sodium 10 Mg Tablet, 10 MG PO DAILY, (Reported) Omeprazole 40 Mg Capsule.dr, 40 MG PO DAILY PRN for HEARTBURN, (Reported) Ondansetron 4 Mg Tab.rapdis, 4 MG PO Q6H PRN for NAUSEA/VOMITING Prescribed by: MARY ALCALA on 06/24/181725 Ondansetron 4 Mg Tab.rapdis, 4 MG PO Q4H Prescribed by: VLADIMIR MARK on 03/27/19222 Pantoprazole Sodium 40 Mg Tablet.dr, 40 MG PO DAILY Prescribed by: VLADIMIR MARK on 03/27/19222 Prednisone 20 Mg Tab, 40 MG PO DAILY Prescribed by: MARY ALCALA on 06/24/181725 Promethazine HCl/Codeine 5 Ml Syrup, 5 ML PO Q6H Prescribed by: MARY ALCALA on 06/24/181725 Propranolol HCl 40 Mg Tablet, 40 MG PO BID, (Reported) Sertraline HCl 50 Mg Tablet, 50 MG PO DAILY, (Reported) Trazodone HCl 100 Mg Tablet, 100 MG PO HS, (Reported) Patient Home Medication List Home Medication List Reviewed: Yes Review of Systems Review of Systems Constitutional: No fever Respiratory: No Symptoms Reported; Denies Cough, Denies Shortness of Air Cardiovascular: No Symptoms Reported; Denies Chest Pain Gastrointestinal: See HPI, Abdominal Pain, Diarrhea, Nausea, Rectal Bleeding; Denies Vomiting Genitourinary: No Symptoms Reported Musculoskeletal: no symptoms reported Skin: no symptoms reported Psychiatric/Neurological: See HPI Endocrine: No Symptoms Reported Hematologic/Lymphatic: See HPI; Denies Easy Bruising Past Gdfwlpq-Cxvlpk-Dlaovm Hx Patient Social History Alcohol Use: Regular Use (REGULAR USE, VERY HEAVY USE AT TIMES) Number of Drinks Today: AA Alcohol Beverage of Choice: Beer Recreational Drug Use: No Smoking Status: Current Everyday Smoker (1 PPD) Type Used: Cigarettes (1 PPD) 2nd Hand Smoke Exposure: Yes Recent Foreign Travel: No Contact w/Someone Who Travel: No Recent Infectious Disease Expo: No Recent Hopitalizations: No Immunizations Up To Date Tetanus Booster (TDap): Unknown PED Vaccines UTD: Yes Date of Pneumonia Vaccine: Feb 01, 2012 Date of Influenza Vaccine: Feb 01, 2016 Seasonal Allergies Seasonal Allergies: No Past Medical History Surgeries: Yes ( X 2; BTL; HYST/BSO; APPY; CHOLECYSTECTOMY; LAPAROSCOPY FOR LYSIS OF ADHESIONS/SBO--11/16/2006; COLONOSCOPIES--LAST ONE 07/27/16) Abdominal, Appendectomy, Section, Gallbladder, 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, Oophorectomy, 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 Respiratory: Yes (TESTED + FOR TB IN 1995--S/P 6 MONTHS OF TREATMENT) Asthma, Sleep Apnea, COPD, Tuberculosis Currently Using CPAP: Yes Currently Using BIPAP: No Cardiac: Yes High Cholesterol, Hypertension, Syncope Neurological: Yes (CHILDHOOD SEIZURES) Headaches /Migraines, Seizure Disorder, Vertigo : No Reproductive Disorders: Yes (HYST/BSO) Female Reproductive Disorders: Denies 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 History: 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, 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 Sexually Transmitted Disease: No HIV/AIDS: No Genitourinary: Yes UTI-Chronic Gastrointestinal: Yes (COLONOSCOPIES--LAST ONE 07/27/16--INTERNAL HEMORRHOIDS, VERY FEW SIGMOID DIVERTICULI; LAPAROSCOPY 11/16/06--LAPAROSCOPY FOR LYSIS OF ADHESIONS/SBO; S/P KENNEDY; S/P APPY) Gastroesophageal Reflux, Obstructive Bowel, Diverticulosis, Ulcer Musculoskeletal: Yes Chronic Back Pain Endocrine: No HEENT: Yes Tinnitis Loss of Vision: Denies Hearing Impairment: Denies Cancer: No Psychosocial: Yes (EXTENSIVE PSYCH ISSUES, MULTIPLE PSYCH ADMITS, INCLUDING [place]; MULTIPLE ATTEMPTS--OVERDOSES, CUT WRISTS) Anxiety, Suicide Attempts, Depression Integumentary: No Blood Disorders: No Adverse Reaction/Blood Tranf: No Family Medical History Congenital heart disease G8 SISTER (HOLE IN HEART ) Neoplasm 19 MOTHER (STOMACH ) G8 BROTHER (STOMACH) No Pertinent Family Hx Physical Exam Vital Signs Vital Signs - First Documented 03/26/19 21:43 Temp 36.7 Pulse 77 Resp 20 B/P (MAP) 133/107 (116) Pulse Ox 99 O2 Delivery Room Air Capillary Refill : Less Than 3 Seconds Height/Weight/BMI Height: 5'2.00" Weight: 168lbs. 0oz. 76.430155or; 36.00 BMI Method:Stated General Appearance: other (EXTREMELY DRAMATIC, HYPERVENTILATING, NEAR-HY STERICAL, WAILING-SCREAMING, MOANING, "SOBBING" BUT NO TEARS; HOLDING RLQ AND REPEATING "OW" "I HURT"; PT DIRTY, REEKS OF ALCOHOL AND CIGARETTES; ) HEENT: PERRL/EOMI Neck: normal inspection Respiratory: normal breath sounds, no respiratory distress, no accessory muscle use Cardiovascular: regular rate, rhythm, no murmur Gastrointestinal: tenderness (RLQ--MARKEDLY EXAGGERATED PAIN RESPONSE--"JUMPS" AND YELLS EVEN BEFORE SHE IS TOUCHED. ) Rectal: normal exam, normal rectal tone, heme negative stool, other (SMALL AMOUNT OF SOFT FORMED, LIGHT BROWN STOOL--HEMOCCULT NEGATIVE. ) Extremities: normal inspection, no pedal edema, normal capillary refill Back: no CVA tenderness Neurologic/Psychiatric: no motor/sensory deficits, alert, oriented x 3 Skin: normal color, warm/dry, other (EXTENSIVE SORES/SCARS/SCABS TO FACE, ARMS, CHEST, LEGS. ) Progress/Results/Core Measures Results/Orders Lab Results Laboratory Tests Test 03/26/19 00:00 03/26/19 22:11 03/26/19 23:32 Range/Units Human Chorionic Gonadotropin, Quant 8 H <5 MIU/ML Urine Color YELLOW Urine Clarity CLEAR Urine pH 6.0 5-9 Urine Specific [place] <=1.005 1.016-1.022 Urine Protein NEGATIVE NEGATIVE Urine Glucose (UA) NEGATIVE NEGATIVE Urine Ketones NEGATIVE NEGATIVE Urine Nitrite NEGATIVE NEGATIVE Urine Bilirubin NEGATIVE NEGATIVE Urine Urobilinogen 0.2 < = 1.0 MG/DL Urine Leukocyte Esterase NEGATIVE NEGATIVE Urine RBC (Auto) 1+ H NEGATIVE Urine RBC 0-2 /HPF Urine WBC 0-2 /HPF Urine Crystals PRESENT H /LPF Urine Amorphous Sediment FEW RAMIRO URATES H /LPF Urine Bacteria TRACE /HPF Urine Casts NONE /LPF Urine Mucus NEGATIVE /LPF Urine Culture Indicated NO Urine Opiates Screen NEGATIVE NEGATIVE Urine Oxycodone Screen NEGATIVE NEGATIVE Urine Methadone Screen NEGATIVE NEGATIVE Urine Propoxyphene Screen NEGATIVE NEGATIVE Urine Barbiturates Screen NEGATIVE NEGATIVE Ur Tricyclic Antidepressants Screen NEGATIVE NEGATIVE Urine Phencyclidine Screen NEGATIVE NEGATIVE Urine Amphetamines Screen NEGATIVE NEGATIVE Urine Methamphetamines Screen NEGATIVE NEGATIVE Urine Benzodiazepines Screen NEGATIVE NEGATIVE Urine Cocaine Screen NEGATIVE NEGATIVE Urine Cannabinoids Screen NEGATIVE NEGATIVE White Blood Count 9.0 4.3-11.0 10^3/uL Red Blood Count 3.95 L 4.35-5.85 10^6/uL Hemoglobin 11.7 11.5-16.0 G/DL Hematocrit 34 L 35-52 % Mean Corpuscular Volume 87 80-99 FL Mean Corpuscular Hemoglobin 30 25-34 PG Mean Corpuscular Hemoglobin Concent 34 32-36 G/DL Red Cell Distribution Width 13.5 10.0-14.5 % Platelet Count 294 130-400 10^3/uL Mean Platelet Volume 8.3 7.4-10.4 FL Neutrophils (%) (Auto) 52 42-75 % Lymphocytes (%) (Auto) 36 12-44 % Monocytes (%) (Auto) 5 0-12 % Eosinophils (%) (Auto) 8 0-10 % Basophils (%) (Auto) 0 0-10 % Neutrophils # (Auto) 4.7 1.8-7.8 X 10^3 Lymphocytes # (Auto) 3.2 1.0-4.0 X 10^3 Monocytes # (Auto) 0.4 0.0-1.0 X 10^3 Eosinophils # (Auto) 0.7 H 0.0-0.3 10^3/uL Basophils # (Auto) 0.0 0.0-0.1 10^3/uL Prothrombin Time 13.7 12.2-14.7 SEC INR Comment 1.0 0.8-1.4 Activated Partial Thromboplast Time 29 24-35 SEC Sodium Level 142 135-145 MMOL/L Potassium Level 4.3 3.6-5.0 MMOL/L Chloride Level 110 H 98-107 MMOL/L Carbon Dioxide Level 19 L 21-32 MMOL/L Anion Gap 13 5-14 MMOL/L Blood Urea Nitrogen 16 7-18 MG/DL Creatinine 0.77 0.60-1.30 MG/DL Estimat Glomerular Filtration Rate > 60 BUN/Creatinine Ratio 21 Glucose Level 94 70-105 MG/DL Calcium Level 9.1 8.5-10.1 MG/DL Corrected Calcium 8.9 8.5-10.1 MG/DL Magnesium Level 2.1 1.6-2.4 MG/DL Total Bilirubin 0.2 0.1-1.0 MG/DL Aspartate Amino Transf (AST/SGOT) 18 5-34 U/L Alanine Aminotransferase (ALT/SGPT) 20 0-55 U/L Alkaline Phosphatase 53 40-136 U/L Total Protein 7.6 6.4-8.2 GM/DL Albumin 4.3 3.2-4.5 GM/DL Amylase Level 58 25-125 U/L Lipase 14 8-78 U/L Serum Test, Qualitative POSITIVE NEGATIVE Serum Alcohol 116 H <10 MG/DL My Orders Orders - VLADIMIR MARK DO Ed Iv/Invasive Line Start (03/26/19 21:53) Catheter(Urinary) Insert & Ass 15 (03/26/19 21:53) Monitor-Rhythm Ecg Trace Only (03/26/19 21:53) Alcohol (03/26/19 21:53) Amylase (03/26/19 21:53) Cbc With Automated Diff (03/26/19 21:53) Comprehensive Metabolic Panel (03/26/19 21:53) Drug Screen Stat (Urine) (03/26/19 21:53) Lipase (03/26/19 21:53) Magnesium (03/26/19 21:53) Protime With Inr (03/26/19 21:53) Partial Thromboplastin Time (03/26/19 21:53) Ua Culture If Indicated (03/26/19 21:53) Ondansetron Injection (Zofran Injectio (03/26/19 22:00) Acute Abd Series (03/26/19 21:53) Pantoprazole Injection (Protonix Injecti (03/26/19 22:00) Fentanyl Injection (Sublimaze Injection (03/26/19 22:00) Ct Abd/Pelv W (Appendicitis) (03/27/19 00:01) Hcg,Qualitative Serum (03/27/19 00:08) Iohexol Injection (Omnipaque 350 Mg/Ml 1 (03/27/19 00:15) Received Contrast (Hold Metformin- Contr (03/27/19 00:15) Ns (Ivpb) (Sodium Chloride 0.9% Ivpb Bag (03/27/19 00:15) Hcg,Quantitative (03/27/19 00:20) Ct Head Wo (03/27/19 00:25) Occult Blood Stool (03/27/19 02:39) Medications Given in ED Current Medications Medications Dose Ordered Sig/Anabel Route Start Time Stop Time Status Last Admin Dose Admin Iohexol 100 ml ONCE ONCE IV 03/27/19 00:15 03/27/19 00:16 DC 03/27/19 01:20 100 ML Ondansetron HCl 4 mg ONCE ONCE IVP 03/26/19 22:00 03/26/19 22:01 DC 03/26/19 22:45 4 MG Pantoprazole 40 mg ONCE ONCE IV 03/26/19 22:00 03/26/19 22:01 DC 03/26/19 22:45 40 MG Sodium Chloride 100 ml ONCE ONCE IV 03/27/19 00:15 03/27/19 00:16 DC 03/27/19 01:20 80 ML Vital Signs/I&O 03/26/19 03/27/19 21:43 03:12 Temp 36.7 36.7 Pulse 77 77 Resp 20 18 B/P (MAP) 133/107 (116) 133/107 (116) Pulse Ox 99 99 O2 Delivery Room Air Room Air Blood Pressure Mean: 116 POS Progress Progress Note : Progress Note ALL THIS BEHAVIOR IMMEDIATELY / ABRUPTLY AND COMPLETELY STOPS LITERALLY SOON STAFF LEAVE THE ROOM PT RESTED QUIETLY FOR THE ENTIRE REMAINDER OF ER STAY--LAYING COMPLETELY FLAT AND OUTSTRETCHED. PT WALKS UPRIGHT AND MOVES WITHOUT DIFFICULTY PT HAD NO BM'S OR VOMITING OR ANY BLEEDING FROM ANYWHERE DURING ENTIRE ER STAY NO COMPLAINTS OF ANY KIND AT DISMISSAL. TEST WAS +, WITH BHCG OF 8--PT HAS HAD HYST/BSO--THIS HAS BEEN VERIFIED BY MULTIPLE CT SCANS AND ULTRASOUNDS CT OF HEAD DONE TO RULE OUT INTRACRANIAL / PITUITARY ABNORMALITY THAT MIGHT CAUSE FALSE + TEST. Diagnostic Imaging Comments ABDOMEN XRAYS--NO ACUTE PROCESS, PENDING RADIOLOGIST REVIEW CT HEAD-NO ACUTE PROCESS, PER [facility] VIA FAX AT [address]203 CT ABDOMEN/PELVIS--NO ACUTE PROCESS, PER [facility] VIA FAX AT 0203--S/P KENNEDY, APPY AND HYST. Reviewed: Reviewed by Me Departure Impression Primary Impression: RLQ PAIN RESOLVED Additional Impressions: Alcohol intoxication FALSE POSITIVE HCG TEST Disposition: HOME, SELF-CARE Condition: Improved Departure-Patient Inst. Referrals: EDUARDO GRUBER (PCP/Family) Primary Care Physician Patient Instructions: Acute Abdomen (Belly Pain), Adult (DC), Alcohol Abuse and Alcoholism (DC) Add. Discharge Instructions: NO ALCOHOL!!! NO SMOKING!!!! TYLENOL 1 GRAM / MOTRIN 600 MG 4 TIMES A DAY NEEDED FOR PAIN FOLLOW UP WITH [facility] THIS WEEK FOR FURTHER CARE All discharge instructions reviewed with patient and/or family. Voiced understanding. Scripts Ondansetron (Ondansetron Odt) 4 Mg Tab.rapdis 4 MG PO Q4H for Nausea/Vomiting, #10 TAB Prov: VLADIMIR MARK DO 03/27/19 Hyoscyamine Sulfate (Levsin-Sl) 0.125 Mg Tab.subl 1-2 TAB SL Q4H for Abdominal Pain, #15 TAB Prov: VLADIMIR MARK DO 03/27/19 Pantoprazole Sodium (Protonix) 40 Mg Tablet.dr 40 MG PO DAILY, #15 TAB Prov: VLADIMIR MARK DO 03/27/19 VLADIMIR MARK DO Mar 27, 2019 02:24 POS
[2019-03-27 03:12] VITALS: BP 133/107
--- NOTE | 2019-03-27 06:54 | Diagnostic Imaging Report ---
PROCEDURE: CT head without contrast. TECHNIQUE: Multiple contiguous axial images were obtained through the brain without the use of intravenous contrast. Auto Exposure Controls were utilized during the CT exam to meet ALARA standards for radiation dose reduction. INDICATION: Elevated hormone levels. Head pressure, evaluate for tumor. Comparison: CT head of 02/11/2015 Findings: No hyperdense hemorrhage or space-occupying mass. No hydrocephalus or midline shift. The basilar cisterns are normal. Mai-white matter differentiation is well preserved. The mastoid air cells are clear. Paranasal sinuses are normal. No focal osseous abnormality of the calvarium. Impression: No acute intracranial process. Specifically, there are no features of pituitary macroadenoma. Findings are in agreement with the preliminary report. Dictated by: Dictated on workstation # [id number]
--- NOTE | 2019-03-27 06:56 | Diagnostic Imaging Report ---
CT ABD/PELV W (APPENDICITIS) TECHNIQUE: Multiple contiguous axial images were obtained through the abdomen and pelvis after administration of intravenous contrast. All CT scans use one or more of the following dose optimizing techniques: automated exposure control, MA and/or KvP adjustment based on a patient size and exam type, or iterative reconstruction. INDICATION: Abdominal pain. COMPARISON: 10/22/2017 FINDINGS: Lower chest: The lung bases are clear. No pericardial or pleural effusion. Peritoneum: No free intraperitoneal air or fluid. Liver and biliary system: The liver is normal. Cholecystectomy. No pathologic biliary duct dilatation. Spleen and Pancreas: Spleen is normal. The pancreas enhances normally without mass lesion or peripancreatic inflammatory changes. Adrenals: Normal. tract: The kidneys enhance normally without suspicious mass or obstruction. Urinary bladder is decompressed by Osorio catheter. Status post hysterectomy. No adnexal mass. GI tract: Stomach is decompressed. No bowel obstruction. No pericolonic inflammatory changes. Appendectomy. Vasculature and Lymph nodes: Normal caliber aorta. No abdominal or pelvic lymphadenopathy. Musculoskeletal: No concerning osseous lesion. IMPRESSION: 1. No acute obstructive or inflammatory process in the abdomen and pelvis. 2. 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, cholecystectomy and appendectomy. Dictated by: Dictated on workstation # [id number]
--- NOTE | 2019-03-27 07:26 | Diagnostic Imaging Report ---
INDICATION: Abdominal pain. COMPARISON: CT abdomen and pelvis performed same day. FINDINGS: Lungs are clear. No pleural effusion or pneumothorax. Normal cardiomediastinal silhouette. No free intraperitoneal air. Nonobstructive bowel gas pattern. There is small amount of fluid and air within the small bowel, likely physiologic. No significant colonic stool is appreciated. Normal regional skeleton. IMPRESSION: No acute process by radiography. Please see CT pelvis report dictated separately for more complete evaluation. Dictated by: Dictated on workstation # [id number]
== END 2019-03-27 03:20 | disposition home or self-care (01) ==
LOC: EDUNIT# 21:43 → ER 21:44
DX: R10.31 Right lower quadrant pain (principal); F10.129 Alcohol abuse with intoxication, unspecified; J44.9 Chronic obstructive pulmonary disease, unspecified; I10 Essential (primary) hypertension; E78.00 Pure hypercholesterolemia, unspecified; G43.909 Migraine, unspecified, not intractable, without status migrainosus; G40.909 Epilepsy, unspecified, not intractable, without status epilepticus; K21.9 Gastro-esophageal reflux disease without esophagitis; F41.9 Anxiety disorder, unspecified; F32.9 Major depressive disorder, single episode, unspecified; F17.210 Nicotine dependence, cigarettes, uncomplicated; Z87.440 Personal history of urinary (tract) infections; Z32.02 Encounter for pregnancy test, result negative; Z91.5 Personal history of self-harm; Z88.0 Allergy status to penicillin; Z79.51 Long term (current) use of inhaled steroids; Z79.52 Long term (current) use of systemic steroids; Z90.49 Acquired absence of other specified parts of digestive tract; Z90.710 Acquired absence of both cervix and uterus; Z98.51 Tubal ligation status; Z90.722 Acquired absence of ovaries, bilateral; Z82.49 Family history of ischemic heart disease and other diseases of the circulatory system; Z80.0 Family history of malignant neoplasm of digestive organs
CPT/HCPCS: 36415; 70450; 74022; 74177; 80053; 80306; 80320; 81000; 82150; 83690; 83735; 84702; 84703; 85025; 85610; 85730; 93041; 96374; 96375

== ENCOUNTER 2019-09-28 09:39 | Emergency (ER) | payer MEDICAID ==
[~2019-09-28] VITALS: Ht 157.4 cm; Wt 95.9 kg
[~2019-09-28 09:39] MED LIST changes: +HYOS0.1283 SL; -MECL-106 PO; +MECL-149 PO; -MONT10TA24 PO; +MONT10TA26 PO; +OMEP40CA27 PO; -OMEP40CA36 PO; +PANT40TA2 PO; -TRAZ-190 PO; +TRAZ-227 PO
[2019-09-28] MEDS ORDERED: SULF1TAB35 PO (09:57)
[2019-09-28] MEDS ORDERED: TERB250T16 PO (09:57)
--- NOTE | 2019-09-28 10:01 | ED Integumentary General ---
General Chief Complaint: Skin/Wound Problems Stated Complaint: RASH Source: patient Exam Limitations: no limitations History of Present Illness Date Seen by Provider: September 28, 2019 Time Seen by Provider: 09:46 Initial Comments This 59-year-old woman presents to the emergency room with severe intertrigo of both breasts. She has been using Diflucan powder without success. The skin it is both pruritic and painful. She has skin breakdown and bleeding associated with it. There is no fever. She denies diabetes. Allergies and Home Medications Allergies Coded Allergies: Penicillins (Verified Allergy, Unknown, 08/20/15) tuberculin, purified protein deriva (Verified Adverse Reaction, Mild, 08/20/15) Home Medications Albuterol Sulfate 8.5 Gm Hfa.aer.ad, 2 PUFF INH Q6H PRN for SHORTNESS OF BREATH, (Reported) Aripiprazole 10 Mg Tablet, 10 MG PO DAILY, (Reported) Cefdinir 300 Mg Capsule, 300 MG PO BID Prescribed by: MARY ALCALA on 06/24/181725 Cetirizine HCl 10 Mg Tablet, 10 MG PO DAILY, (Reported) Clotrimazole/Betamethasone Dip 15 Gm Cream..g., TOP DAILY, (Reported) Dicyclomine HCl 20 Mg Tablet, 20 MG PO BID, (Reported) Fluticasone Propionate 16 Gm [place].susp, 2 SPRAYS NS DAILY, (Reported) Hyoscyamine Sulfate 0.125 Mg Tab.subl, 1-2 TAB SL Q4H Prescribed by: VLADIMIR MARK on 03/27/19222 Lovastatin 40 Mg Tablet, 40 MG PO DAILY, (Reported) Montelukast Sodium 10 Mg Tablet, 10 MG PO DAILY, (Reported) Omeprazole 40 Mg Capsule.dr, 40 MG PO DAILY PRN for HEARTBURN, (Reported) Ondansetron 4 Mg Tab.rapdis, 4 MG PO Q6H PRN for NAUSEA/VOMITING Prescribed by: MARY ALCALA on 06/24/181725 Ondansetron 4 Mg Tab.rapdis, 4 MG PO Q4H Prescribed by: VLADIMIR MARK on 03/27/19222 Pantoprazole Sodium 40 Mg Tablet.dr, 40 MG PO DAILY Prescribed by: VLADIMIR MARK on 03/27/19222 Prednisone 20 Mg Tab, 40 MG PO DAILY Prescribed by: MARY ALCALA on 06/24/18 172 Promethazine HCl/Codeine 5 Ml Syrup, 5 ML PO Q6H Prescribed by: MARY ALCALA on 06/24/18 172 Propranolol HCl 40 Mg Tablet, 40 MG PO BID, (Reported) Sertraline HCl 50 Mg Tablet, 50 MG PO DAILY, (Reported) Sulfamethoxazole/Trimethoprim 1 Each Tablet, 1 EACH PO BID Prescribed by: BRIONNA DARBY on 09/28/19 0957 Terbinafine HCl 250 Mg Tablet, 250 MG PO DAILY Prescribed by: BRIONNA DARBY on 09/28/19 0957 Trazodone HCl 100 Mg Tablet, 100 MG PO HS, (Reported) Patient Home Medication List Home Medication List Reviewed: Yes Review of Systems Review of Systems Constitutional: no symptoms reported EENTM: no symptoms reported Respiratory: no symptoms reported Cardiovascular: no symptoms reported Gastrointestinal: no symptoms reported Genitourinary: no symptoms reported : No Musculoskeletal: no symptoms reported Skin: see HPI Psychiatric/Neurological: No Symptoms Reported Endocrine: No Symptoms Reported Past Wffgoxf-Qghgbb-Abrcln Hx Patient Social History Alcohol Beverage of Choice: Beer Type Used: Cigarettes 2nd Hand Smoke Exposure: Yes Recent Foreign Travel: No Contact w/Someone Who Travel: No Recent Hopitalizations: No Immunizations Up To Date Tetanus Booster (TDap): Unknown PED Vaccines UTD: Yes Date of Pneumonia Vaccine: Feb 01, 2012 Date of Influenza Vaccine: Feb 01, 2016 Seasonal Allergies Seasonal Allergies: No Past Medical History Surgeries: Yes Abdominal, Appendectomy, Section, Gallbladder, 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, Oophorectomy, 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 Respiratory: Yes (TESTED + FOR TB IN 1995--S/P 6 MONTHS OF TREATMENT) Asthma, Sleep Apnea, COPD, Tuberculosis Currently Using CPAP: Yes Currently Using BIPAP: No Cardiac: Yes High Cholesterol, Hypertension, Syncope Neurological: Yes (CHILDHOOD SEIZURES) Headaches /Migraines, Seizure Disorder, Vertigo Reproductive Disorders: Yes (HYST/BSO) Female Reproductive Disorders: Denies 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, 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 Sexually Transmitted Disease: No HIV/AIDS: No Genitourinary: Yes UTI-Chronic Gastrointestinal: Yes Gastroesophageal Reflux, Obstructive Bowel, Diverticulosis, Ulcer Musculoskeletal: Yes Chronic Back Pain Endocrine: No HEENT: Yes Tinnitis Loss of Vision: Denies Hearing Impairment: Denies Cancer: No Psychosocial: Yes Anxiety, Suicide Attempts, Depression Integumentary: Yes (intertrigo) Blood Disorders: No Adverse Reaction/Blood Tranf: No Family Medical History Congenital heart disease G8 SISTER (HOLE IN HEART ) Neoplasm 19 MOTHER (STOMACH ) G8 BROTHER (STOMACH) No Pertinent Family Hx Physical Exam Vital Signs Vital Signs - First Documented 09/28/19 09:43 Temp 36.6 Pulse 94 Resp 18 B/P (MAP) 188/111 (136) Pulse Ox 94 O2 Delivery Room Air Capillary Refill : General Appearance: WD/WN, mild distress HEENT: normal ENT inspection Neck: normal inspection Cardiovascular: regular rate, rhythm, no edema, no murmur Respiratory: lungs clear, normal breath sounds, no respiratory distress Extremities: normal inspection Neurologic/Psychiatric: vessel ordinary seaman II-XII nml as tested, alert, normal mood/affect, oriented x 3 Skin: other (moist erythema and skin breakdown in the breast folds bilaterally) Progress/Results/Core Measures Results/Orders Vital Signs/I&O 09/28/19 09/28/19 09:43 10:08 Temp 36.6 Pulse 94 94 Resp 18 18 B/P (MAP) 188/111 (136) 171/115 Pulse Ox 94 95 O2 Delivery Room Air Departure Impression Primary Impression: Intertrigo Disposition: 01 HOME, SELF-CARE Condition: Stable Departure-Patient Inst. Decision time for Depature: 09:50 Referrals: [facility] (PCP) Primary Care Physician EDUARDO GRUBER (Family) Primary Care Physician Patient Instructions: Intertrigo Add. Discharge Instructions: Keep the skin beneath your breasts as dry as possible. Blot dry well with a towel after showering. Avoid rubbing the skin with towels which may cause irritation. You may also lift the breasts for several minutes to allow them to air dry more thoroughly. Placing a clean dry cloth beneath each breast can help keep them dry and absorb any moisture produced by your skin. Change this cloth every few hours to keep the area clean. Complete the antibiotic as prescribed over the next week and the antifungal antibiotic over the next 2 weeks. Allow the skin several days to begin healing before you expect noticeable results. You may use Tylenol and/or ibuprofen for pain. You may continue using the nystatin powder as prescribed as well. Contact your doctor or return to care if you have worsening symptoms despite following these instructions. All discharge instructions reviewed with patient and/or family. Voiced understa nding. Scripts Sulfamethoxazole/Trimethoprim (Bactrim Ds Tablet) 1 Each Tablet 1 EACH PO BID, #14 TAB Prov: BRIONNA ROOT MD 09/28/19 Terbinafine HCl (Terbinafine HCl) 250 Mg Tablet 250 MG PO DAILY, #14 TAB Prov: BRIONNA ROOT MD 09/28/19 Copy Copies To 1: ELVIA RUIZ JOSHUA T MD September 28, 2019 10:01
[2019-09-28 10:08] VITALS: BP 171/115
== END 2019-09-28 10:00 | disposition home or self-care (01) ==
LOC: EDUNIT# 09:39 → ER 09:40
DX: L30.4 Erythema intertrigo (principal); J44.9 Chronic obstructive pulmonary disease, unspecified; I10 Essential (primary) hypertension; E78.00 Pure hypercholesterolemia, unspecified; K21.9 Gastro-esophageal reflux disease without esophagitis; F41.9 Anxiety disorder, unspecified; F32.9 Major depressive disorder, single episode, unspecified; Z88.0 Allergy status to penicillin; Z88.8 Allergy status to other drugs, medicaments and biological substances; Z79.51 Long term (current) use of inhaled steroids; Z79.52 Long term (current) use of systemic steroids; Z77.22 Contact with and (suspected) exposure to environmental tobacco smoke (acute) (chronic); Z82.49 Family history of ischemic heart disease and other diseases of the circulatory system
CPT/HCPCS: 99282

== ENCOUNTER → 2019-12-18 | Outpatient (CLI) | payer MEDICAID ==
[~2019-12-18] MED LIST changes: +TERB250T16 PO
--- NOTE | 2019-12-18 14:33 | Diagnostic Imaging Report ---
INDICATION: Routine screening. COMPARISON is made with prior mammograms from 10/27/2017 and 11/28/2013. 2-D and 3-D bilateral screening mammography was performed with CAD. Scattered fibroglandular densities are identified bilaterally. A lobulated density has developed in the upper outer right breast mid depth. This may represent a cluster of cysts. Further evaluation with ultrasound is recommended. Left breast is unremarkable. There are benign calcifications. No malignant-appearing microcalcifications are identified. Axillae are unremarkable. IMPRESSION: BI-RADS Category 0. Right breast density. Further evaluation with ultrasound is recommended. ACR BI-RADS Category 0: Incomplete. (Needs additional imaging evaluation). Result letter will be mailed to the patient. Note: At least 10% of breast cancer is not imaged by mammography. Dictated by: Dictated on workstation # [id number]
== END ==
LOC: RAD 09:59
PROVIDERS: ATTEND Nurse Practitioner Community Health
DX: Z12.31 Encounter for screening mammogram for malignant neoplasm of breast (principal)
CPT/HCPCS: 77063; 77067

== ENCOUNTER → 2020-01-04 | Outpatient (CLI) | payer MEDICAID ==
--- NOTE | 2020-01-04 11:36 | Diagnostic Imaging Report ---
EXAMINATION: Ultrasound right breast Limited INDICATION: Abnormal screening mammogram Screening mammogram performed on 12/18/2019 noted a newly developed lobulated density in the upper-outer quadrant of the right breast at mid depth. The possibility that this was related to a cluster of cysts was raised. On this exam there is a 1.1 x 0.4 x 0.8 cm well-circumscribed avascular septated hypoechoic lesion with a few internal echoes in this region. I suspect that this represents a slightly comminuted cyst/cysts and most likely this does correspond to the finding of the mammogram. There are no solid lesions in this area to suggest malignancy. Even so, I would recommend that a short-term (6 month) follow-up mammogram and ultrasound exam of the right breast be obtained for continued evaluation. IMPRESSION: There appears to be a small septated slightly complicated cyst/cysts in the 9 o'clock position of the right breast. Most likely this corresponds to the lobulated asymmetry seen on mammogram. Recommendations as above. ACR category 3 ACR BI-RADS Category 3: Probably benign findings. Dictated by: Dictated on workstation # [id number]
== END ==
LOC: RAD 09:59
PROVIDERS: ATTEND Nurse Practitioner Community Health
DX: N60.01 Solitary cyst of right breast (principal); R92.8 Other abnormal and inconclusive findings on diagnostic imaging of breast

== ENCOUNTER → 2020-10-24 | Outpatient (CLI) | payer MEDICAID ==
[~2020-10-24] MED LIST changes: -ARIP10TA17 PO; +ARIP10TA55 PO; -CLIN300C11 PO; +CLIN300C12 PO; -MONT10TA26 PO; +MONT10TA32 PO; -OMEP40CA27 PO; +OMEP40CA6 PO; +SERT-413 PO; -SERT50TA9 PO
--- NOTE | 2020-10-24 14:40 | Diagnostic Imaging Report ---
Indication: Six-month follow-up right breast density. Correlation is made with prior mammogram from 12/18/2019 and 10/27/2017. Unilateral right 2-D and 3-D diagnostic mammography was performed with CAD. Scattered fibroglandular densities in the right breast are noted. The lobulated density in the upper outer right breast mid depth appears stable. No new mass or malignant appearing microcalcifications are seen. Right axilla is unremarkable. IMPRESSION: BI-RADS 0. Stable right mammogram. Ultrasound follow-up of the lobulated lesion in the upper outer right breast will be performed today. ACR BI-RADS Category 0: Incomplete. (Needs additional imaging evaluation). Result letter will be mailed to the patient. Note: At least 10% of breast cancer is not imaged by mammography. Dictated by: Dictated on workstation # [id number]
--- NOTE | 2020-10-24 14:50 | Diagnostic Imaging Report ---
INDICATION: Six-month followup right breast cyst. Correlation is made with diagnostic mammogram earlier same day and prior ultrasound from 01/04/2020. Previously noted cluster of cysts at the 9 o'clock location right breast, 5 cm from the nipple again noted, an area measures 11 mm x 4 mm x 9 mm compared with 11 mm x 5 mm x 8 mm on prior. No internal vascularity is seen. No other masses detected. IMPRESSION: BI-RADS Category 2 Stable cluster of cysts at the 9 o'clock location right breast, 5 cm from the nipple. The patient may return to routine annual screening mammography. ACR BI-RADS Category 2: Benign findings. Result letter will be mailed to the patient. Note: At least 10% of breast cancer is not imaged by mammography. Dictated by: Dictated on workstation # [id number]
== END ==
LOC: RAD 13:15
PROVIDERS: ATTEND Nurse Practitioner
DX: N60.01 Solitary cyst of right breast (principal); N64.9 Disorder of breast, unspecified
CPT/HCPCS: 76642; 77065; G0279

== ENCOUNTER 2021-02-10 14:52 | Emergency (ER) | payer MEDICAID ==
[~2021-02-10] VITALS: Ht 157 cm; Wt 95.0 kg
[~2021-02-10 14:52] MED LIST changes: -SULF1TAB35 PO; +SULF1TAB38 PO
[2021-02-10] MEDS ORDERED: NS IV 1000 ML 1,000 ML IV ONE ×2 (15:15→16:15)
[2021-02-10] MEDS ORDERED: fentaNYL INJ 100 MCG/2 ML AMP IVP ONE (15:15)
--- NOTE | 2021-02-10 15:16 | ED Abdominal Pain ---
General Chief Complaint: Abdominal/GI Problems Stated Complaint: N/V,DIARRHEA Nursing Triage Note: Pt to ED by EMS from [facility] with c/o abd pain, N/V/D for the last week. Pt reports pain 10/10, tender to palpation in the middle of her abdomen. Pt received 8mg zofran and 25mg phenegren IM at [facility] with no relief. Pt reports being unable to keep any foods, liquids, or meds down for the last week. Source of Information: Patient Exam Limitations: No Limitations History of Present Illness Date Seen by Provider: Feb 10, 2021 Time Seen by Provider: 15:07 Initial Comments This is a 60-year-old female who presented to the ER via [facility] from [facility] with complaints of severe mid abdominal pain, nausea/vomiting/diarrhea x1 week. States that she has not been able to eat or drink anything other than water for the past week. Currently rating her pain 10/10. Was given Zofran 8 mg IM and Phenergan 25 mg IM at [facility] prior to arrival. Allergies and Home Medications Allergies Coded Allergies: Penicillins (Verified Allergy, Unknown, 08/20/15) tuberculin, purified protein deriva (Verified Adverse Reaction, Mild, 08/20/15) Patient Home Medication List Home Medication List Reviewed: Yes Albuterol Sulfate (Proair Hfa) 8.5 Gm Hfa.aer.ad, 2 PUFF INH Q6H PRN for SHORTNESS OF BREATH, (Reported) Entered as Reported by: MARTHA IVAN on 08/20/15 1428 Aripiprazole (Aripiprazole) 10 Mg Tablet, 10 MG PO DAILY, (Reported) Entered as Reported by: MARTHA IVAN on 01/25/18 0927 Cefdinir (Cefdinir) 300 Mg Capsule, 300 MG PO BID Prescribed by: MARY ALCALA on 06/24/18 1726 Cetirizine HCl (Cetirizine HCl) 10 Mg Tablet, 10 MG PO DAILY, (Reported) Entered as Reported by: MARTHA IVAN on 08/20/15 142 Clotrimazole/Betamethasone Dip (Clotrimazole-Betamethasone Crm) 15 Gm Cream..g., TOP DAILY, (Reported) Entered as Reported by: MARTHA IVAN on 01/25/18 0933 Dicyclomine HCl (Dicyclomine HCl) 20 Mg Tablet, 20 MG PO BID, (Reported) Entered as Reported by: UDAY CHAVEZ on 12/18/16 1345 Fluticasone Propionate (Fluticasone Propionate) 16 Gm [place].susp, 2 SPRAYS NS DAILY, (Reported) Entered as Reported by: MARTHA IVAN on 01/25/18932 Hyoscyamine Sulfate (Levsin-Sl) 0.125 Mg Tab.subl, 1-2 TAB SL Q4H Prescribed by: VLADIMIR MARK on 03/27/19222 Lovastatin (Lovastatin) 40 Mg Tablet, 40 MG PO DAILY, (Reported) Entered as Reported by: MARTHA IVAN on 01/25/18926 Montelukast Sodium (Montelukast Sodium) 10 Mg Tablet, 10 MG PO DAILY, (Reported) Entered as Reported by: MARTHA IVAN on 01/07/16 09 Omeprazole (Omeprazole) 40 Mg Capsule.dr, 40 MG PO DAILY PRN for HEARTBURN, (Reported) Entered as Reported by: MARTHA IVAN on 01/25/18932 Ondansetron (Ondansetron Odt) 4 Mg Tab.rapdis, 4 MG PO Q6H PRN for DULCE MARIA SEA/VOMITING Prescribed by: MARY ALCALA on 06/24/181725 Ondansetron (Ondansetron Odt) 4 Mg Tab.rapdis, 4 MG PO Q4H Prescribed by: VLADIMIR MARK on 03/27/19222 Pantoprazole Sodium (Protonix) 40 Mg Tablet.dr, 40 MG PO DAILY Prescribed by: VLADIMIR MARK on 03/27/19222 Prednisone (Prednisone) 20 Mg Tab, 40 MG PO DAILY Prescribed by: MARY ALCALA on 06/24/181725 Promethazine HCl/Codeine (Prometh-Codein 6.25-10 mg/5 ml) 5 Ml Syrup, 5 ML PO Q6H Prescribed by: MARY ALCALA on 06/24/181725 Propranolol HCl (Propranolol HCl) 40 Mg Tablet, 40 MG PO BID, (Reported) Entered as Reported by: MARTHA IVAN on 01/25/18926 Sertraline HCl (Sertraline HCl) 50 Mg Tablet, 50 MG PO DAILY, (Reported) Entered as Reported by: UDAY CHAVEZ on 12/18/16 1345 Sulfamethoxazole/Trimethoprim (Bactrim Ds Tablet) 1 Each Tablet, 1 EACH PO BID Prescribed by: BRIONNA DARBY on 09/28/19 0957 Terbinafine HCl (Terbinafine HCl) 250 Mg Tablet, 250 MG PO DAILY Prescribed by: BRIONNA DARBY on 09/28/19 0957 Trazodone HCl (Trazodone HCl) 100 Mg Tablet, 100 MG PO HS, (Reported) Entered as Reported by: MARTHA IVAN on 01/25/18 0927 Review of Systems Review of Systems Constitutional: no symptoms reported EENTM: No Symptoms Reported Respiratory: No Symptoms Reported Cardiovascular: No Symptoms Reported Gastrointestinal: See HPI Genitourinary: No Symptoms Reported Musculoskeletal: no symptoms reported Skin: no symptoms reported Psychiatric/Neurological: See HPI Endocrine: No Symptoms Reported Hematologic/Lymphatic: No Symptoms Reported Past Lfasaxl-Zccjpv-Pueqnl Hx Immunizations Up To Date Tetanus Booster (TDap): Unknown PED Vaccines UTD: Yes Seasonal Allergies Seasonal Allergies: No Past Medical History Surgeries: Yes Abdominal, Appendectomy, Section, Gallbladder, 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, Oophorectomy, 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 Respiratory: Yes (TESTED + FOR TB IN 1995--S/P 6 MONTHS OF TREATMENT) Asthma, Sleep Apnea, COPD, Tuberculosis Currently Using CPAP: Yes Currently Using BIPAP: No Cardiac: Yes High Cholesterol, Hypertension, Syncope Neurological: Yes (CHILDHOOD SEIZURES) Headaches /Migraines, Seizure Disorder, Vertigo Reproductive Disorders: Yes (HYST/BSO) Female Reproductive Disorders: Denies 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 History: 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, 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 Sexually Transmitted Disease: No HIV/AIDS: No Genitourinary: Yes UTI-Chronic Gastrointestinal: Yes Gastroesophageal Reflux, Obstructive Bowel, Diverticulosis, Ulcer Musculoskeletal: Yes Chronic Back Pain Endocrine: No Diabetes, Non-Insulin dep HEENT: Yes Tinnitis Loss of Vision: Denies Hearing Impairment: Denies Cancer: No Psychosocial: Yes Anxiety, Suicide Attempts, Depression Integumentary: Yes (intertrigo) Blood Disorders: No Adverse Reaction/Blood Tranf: No Family Medical History Congenital heart disease G8 SISTER (HOLE IN HEART ) Neoplasm 19 MOTHER (STOMACH ) G8 BROTHER (STOMACH) No Pertinent Family Hx Physical Exam Vital Signs Vital Signs - First Documented 02/10/21 14:58 Temp 35.0 Pulse 122 Resp 20 B/P (MAP) 147/121 (130) Pulse Ox 96 O2 Delivery Room Air Capillary Refill : Less Than 3 Seconds Height/Weight/BMI Height: 5'2.00" Weight: 168lbs. 0oz. 76.511048rr; 38.00 BMI Method:Stated General Appearance: WD/WN, no apparent distress Focused Exam Lactate Level 02/10/21 15:20: Lactic Acid Level 2.47*H 02/10/21 17:59: Lactic Acid Level 1.04 Lactic Acid Level Laboratory Tests Test 02/10/21 15:20 02/10/21 17:59 Lactic Acid Level 2.47 MMOL/L (0.50-2.00) *H 1.04 MMOL/L (0.50-2.00) Progress/Results/Core Measures Results/Orders Lab Results Laboratory Tests Test 02/10/21 15:20 02/10/21 16:15 02/10/21 16:20 02/10/21 17:59 Range/Units White Blood Count 17.4 H 4.3-11.0 10^3/uL Red Blood Count 5.29 H 3.80-5.11 10^6/uL Hemoglobin 15.9 11.5-16.0 g/dL Hematocrit 46 35-52 % Mean Corpuscular Volume 86 80-99 fL Mean Corpuscular Hemoglobin 30 25-34 pg Mean Corpuscular Hemoglobin Concent 35 32-36 g/dL Red Cell Distribution Width 14.5 10.0-14.5 % Platelet Count 447 H 130-400 10^3/uL Mean Platelet Volume 8.6 L 9.0-12.2 fL Immature Granulocyte % (Auto) 0 % Neutrophils (%) (Auto) 67 42-75 % Lymphocytes (%) (Auto) 23 12-44 % Monocytes (%) (Auto) 9 0-12 % Eosinophils (%) (Auto) 1 0-10 % Basophils (%) (Auto) 1 0-10 % Neutrophils # (Auto) 11.6 H 1.8-7.8 10^3/uL Lymphocytes # (Auto) 4.0 1.0-4.0 10^3/uL Monocytes # (Auto) 1.5 H 0.0-1.0 10^3/uL Eosinophils # (Auto) 0.2 0.0-0.3 10^3/uL Basophils # (Auto) 0.1 0.0-0.1 10^3/uL Immature Granulocyte # (Auto) 0.1 0.0-0.1 10^3/uL Neutrophils % (Manual) 59 % Lymphocytes % (Manual) 25 % Monocytes % (Manual) 7 % Eosinophils % (Manual) 0 % Basophils % (Manual) 0 % Band Neutrophils 9 % Blood Morphology Comment NORMAL Prothrombin Time 14.3 12.2-14.7 SEC INR Comment 1.1 0.8-1.4 Activated Partial Thromboplast Time 31 24-35 SEC Sodium Level 138 135-145 MMOL/L Potassium Level 3.8 3.6-5.0 MMOL/L Chloride Level 107 98-107 MMOL/L Carbon Dioxide Level 16 L 21-32 MMOL/L Anion Gap 15 H 5-14 MMOL/L Blood Urea Nitrogen 21 H 7-18 MG/DL Creatinine 1.24 0.60-1.30 MG/DL Estimat Glomerular Filtration Rate 44 BUN/Creatinine Ratio 17 Glucose Level 150 H 70-105 MG/DL Lactic Acid Level 2.47 *H 1.04 0.50-2.00 MMOL/L Calcium Level 10.3 H 8.5-10.1 MG/DL Corrected Calcium 8.5-10.1 MG/DL Total Bilirubin 0.5 0.1-1.0 MG/DL Aspartate Amino Transf (AST/SGOT) 28 5-34 U/L Alanine Aminotransferase (ALT/SGPT) 74 H 0-55 U/L Alkaline Phosphatase 90 40-136 U/L C-Reactive Protein High Sensitivity 2.48 H 0.00-0.50 MG/DL Total Protein 8.9 H 6.4-8.2 GM/DL Albumin 4.8 H 3.2-4.5 GM/DL Lipase 23 8-78 U/L Procalcitonin 0.07 <0.10 NG/ML Urine Color YELLOW Urine Clarity CLOUDY Urine pH 6.0 5-9 Urine Specific [place] 1.025 H 1.016-1.022 Urine Protein 2+ H NEGATIVE Urine Glucose (UA) NEGATIVE NEGATIVE Urine Ketones NEGATIVE NEGATIVE Urine Nitrite NEGATIVE NEGATIVE Urine Bilirubin 1+ H NEGATIVE Urine Urobilinogen 0.2 < = 1.0 MG/DL Urine Leukocyte Esterase 2+ H NEGATIVE Urine RBC (Auto) TRACE-I H NEGATIVE Urine RBC RARE /HPF Urine WBC 10-25 H /HPF Urine Squamous Epithelial Cells 5-10 /HPF Urine Crystals NONE /LPF Urine Bacteria LARGE H /HPF Urine Casts PRESENT /LPF Urine Hyaline Casts 5-10 H /LPF Urine Mucus NEGATIVE /LPF Urine Culture Indicated YES Stool Occult Blood Immunoassay NEGATIVE NEGATIVE Micro Results Microbiology 02/10/21 Fecal Leukocyte Stain - Final, Complete 02/10/21 C. difficile GDH Antigen & Toxins - Final, Complete My Orders Orders - VALDEMAR GUZMAN APRN Cbc With Automated Diff (02/10/21:) Comprehensive Metabolic Panel (02/10/21 15:) Blood Culture (02/10/21:) Sputum Culture (02/10/21:) Urinalysis (02/10/21 15:) Urine Culture (02/10/21:) Protime With Inr (02/10/21 15:) Partial Thromboplastin Time (02/10/21 15:09) Chest 1 View, Ap/Pa Only (02/10/21 15:09) Ed Iv/Invasive Line Start (02/10/21 15:09) Vital Signs Adult Sepsis Patie Q15M (02/10/21 15:09) O2 (02/10/21 15:09) Remove Rings In Anticipation O (02/10/21 15:09) Lactic Acid Analyzer (02/10/21 15:09) Procalcitonin (Pct) (02/10/21 15:09) Hs C Reactive Protein (02/10/21 15:09) Ct Abdomen/Pelvis W (02/10/21 15:09) Ns Iv 1000 Ml (Sodium Chloride 0.9%) (02/10/21 15:15) Fentanyl Inj (Sublimaze Injection) (02/10/21 15:15) Lipase (02/10/21 15:11) Manual Differential (02/10/21 15:20) Hydromorphone Injection (Dilaudid Inject (02/10/21 15:45) Ns Iv 1000 Ml (Sodium Chloride 0.9%) (02/10/21 16:15) Hydromorphone Injection (Dilaudid Inject (02/10/21 16:15) Cefepime Injection (Maxipime Injection) (02/10/21 16:15) Metronidazole 500mg/100ml Ivpb (Flagyl 5 (02/10/21 16:15) C Difficile Ag + Toxin A/B. (02/10/21 16:23) Isolation Central Supply Req (02/10/21 16:23) Occult Blood Stool (02/10/21 16:23) Fecal Wbc (02/10/21 16:23) Iohexol Injection (Omnipaque 350 Mg/Ml 1 (02/10/21 16:45) Received Contrast (Hold Metformin- Contr (02/10/21 16:45) Ns (Ivpb) (Sodium Chloride 0.9% Ivpb Bag (02/10/21 16:45) Lidocaine 2% Viscous 15 Ml (Xylocaine Vi (02/10/21 18:45) Antacid Suspension (Mylanta Suspension (02/10/21 18:45) Medications Given in ED Current Medications Medications Dose Ordered Sig/Anabel Route Start Time Stop Time Status Last Admin Dose Admin Al Hydrox/Mg Hydrox/Simethicone 30 ml ONCE ONCE PO 02/10/21 18:45 02/10/21 18:46 DC 02/10/21 18:49 30 ML Cefepime HCl 1000 mg/Sterile Water 10 ml @ 200 mls/hr ONCE ONCE IV 02/10/21 16:15 02/10/21 16:17 DC 02/10/21 17:30 200 MLS/HR Fentanyl Citrate 50 mcg ONCE ONCE IVP 02/10/21 15:15 02/10/21 15:16 DC 02/10/21 15:30 50 MCG Hydromorphone HCl 1 mg ONCE ONCE IV 02/10/21 15:45 02/10/21 15:46 DC 02/10/21 15:57 1 MG Hydromorphone HCl 1 mg ONCE ONCE IV 02/10/21 16:15 02/10/21 16:16 DC 02/10/21 17:20 1 MG Iohexol 100 ml ONCE ONCE IV 02/10/21 16:45 02/10/21 16:46 DC 02/10/21 18:19 100 ML Lidocaine HCl 15 ml ONCE ONCE PO 02/10/21 18:45 02/10/21 18:46 DC 02/10/21 18:49 15 ML Metronidazole 100 ml @ 100 mls/hr ONCE ONCE IV 02/10/21 16:15 02/10/21 17:14 DC 02/10/21 17:30 100 MLS/HR Sodium Chloride 100 ml ONCE ONCE IV 02/10/21 16:45 02/10/21 16:46 DC 02/10/21 18:20 80 ML Sodium Chloride 1,000 ml @ 999 mls/hr Q1H ONCE IV 02/10/21 15:15 02/10/21 16:15 DC 02/10/21 15:27 999 MLS/HR Sodium Chloride 1,000 ml @ 999 mls/hr Q1H ONCE IV 02/10/21 16:15 02/10/21 17:15 DC 02/10/21 17:32 999 MLS/HR Vital Signs/I&O 02/10/21 14:58 Temp 35.0 Pulse 122 Resp 20 B/P (MAP) 147/121 (130) Pulse Ox 96 O2 Delivery Room Air Blood Pressure Mean: 130 Progress Progress Note : Progress Note Patient examined she is tearful at this time and quite a bit of pain. Orders placed for sepsis work-up as she is tachycardic at this time and her symptoms have persisted for extended length of time. Additionally will give normal saline 1 L bolus and fentanyl 50 mcg IV push for pain. Diagnostic Imaging Diagonstic Imaging: Xray Plain Films/CT/US/NM/MRI: chest Comments [facility]. [place], [place] NAME: LAVELLE RIVERS [facility] REC#: [id number] PT STATUS: REG ER : 1960 PHYSICIAN: VALDEMAR GUZMAN APRN ADMIT DATE: 02/10/21/ER Signed Date of Exam:02/10/21 CHEST 1 VIEW, AP/PA ONLY INDICATION: Nausea and vomiting x1 week. EXAMINATION: Portable chest at 3:41 p.m. FINDINGS: Heart size and pulmonary vascularity are normal. Lungs are clear. There are no effusions or pneumothoraces. IMPRESSION: Negative chest. Dictated by: Dictated on workstation # [id number] Dict: 02/10/21 1554 Trans: 02/10/21 1555 [id number] Interpreted by: MARY WAYNE MD Electronically signed by: MARY WAYNE MD 02/10/21 1555 Reviewed: Reviewed by Me Departure Impression Primary Impression: Gastritis Disposition: 01 HOME, SELF-CARE Condition: Improved Departure-Patient Inst. Decision time for Depature: 19:42 Referrals: [facility] (PCP) Primary Care Physician EDUARDO GRUBER (Family) Primary Care Physician Patient Instructions: Gastritis Add. Discharge Instructions: Plan: 1. Take your Protonix daily as directed. 2. Take Carafatae on empty stomach at least 30 minutes before meal and at least 2 hours before medications. 3. Do not eat foods that cause irritation. Foods such as oranges and salsa can cause burning or pain. Eat a variety of healthy foods. Examples include fruits (not citrus), vegetables, low-fat dairy products, beans, whole-grain breads, and lean meats and fish. Try to eat small meals, and drink water with your meals. Do not eat for at least 3 hours before you go to bed. 4. Follow up with your doctor this week. 5. Return for any new, concerning, or worsening symptoms. All discharge instructions reviewed with patient and/or family. Voiced under standing. Scripts Sucralfate (Carafate) 1 Gm Tablet 1 GM PO AC, #30 TAB 0 Refills Prov: VALDEMAR GUZMAN FINANCIAL ADMINISTRATIVE ASSISTANT 02/10/21 VALDEMAR GUZMAN FINANCIAL ADMINISTRATIVE ASSISTANT Feb 10, 2021 15:16
[2021-02-10 15:34] LABS: BASOPHILS # (AUTO) 0.1 10^3/uL (0.0-0.1); BASOPHILS % (AUTO) 1 % (0-10); EOSINOPHILS # (AUTO) 0.2 10^3/uL (0.0-0.3); EOSINOPHILS % (AUTO) 1 % (0-10); HEMATOCRIT 46 % (35-52); HEMOGLOBIN 15.9 g/dL (11.5-16.0); LYMPHOCYTES % (AUTO) 23 % (12-44); MEAN CORPUSCULAR HEMOGLOBIN 30 pg (25-34); MEAN CORPUSCULAR HGB CONC 35 g/dL (32-36); MEAN CORPUSCULAR VOLUME 86 fL (80-99); MEAN PLATELET VOLUME 8.6 fL (9.0-12.2); MONOCYTES # (AUTO) 1.5 10^3/uL (0.0-1.0); MONOCYTES % (AUTO) 9 % (0-12); NEUTROPHILS # (AUTO) 11.6 10^3/uL (1.8-7.8); NEUTROPHILS % (AUTO) 67 % (42-75); PLATELET COUNT 447 10^3/uL (130-400); WHITE BLOOD COUNT 17.4 10^3/uL (4.3-11.0)
[2021-02-10] MEDS ORDERED: HYDROmorphone 2 MG/ML VIAL (DILAUDID) IV ONE ×2 (15:45→16:15)
[2021-02-10 15:49] LABS: ALBUMIN 4.8 GM/DL (3.2-4.5); CHLORIDE 107 MMOL/L (98-107); POTASSIUM 3.8 MMOL/L (3.6-5.0); SODIUM 138 MMOL/L (135-145)
[2021-02-10 15:50] LABS: CALCIUM 10.3 MG/DL (8.5-10.1)
[2021-02-10 15:51] LABS: GLUCOSE 150 MG/DL (70-105); TOTAL PROTEIN 8.9 GM/DL (6.4-8.2)
[2021-02-10 15:52] LABS: CARBON DIOXIDE 16 MMOL/L (21-32)
[2021-02-10 15:53] LABS: BILIRUBIN,TOTAL 0.5 MG/DL (0.1-1.0)
[2021-02-10 15:55] LABS: ALKALINE PHOSPHATASE 90 U/L (40-136); CREATININE SERUM 1.24 MG/DL (0.60-1.30); GFR ESTIMATED 44
[2021-02-10 15:56] LABS: BUN/CREATININE RATIO 17
--- NOTE | 2021-02-10 15:57 | Diagnostic Imaging Report ---
INDICATION: Nausea and vomiting x1 week. EXAMINATION: Portable chest at 3:41 p.m. FINDINGS: Heart size and pulmonary vascularity are normal. Lungs are clear. There are no effusions or pneumothoraces. IMPRESSION: Negative chest. Dictated by: Dictated on workstation # [id number]
[2021-02-10 15:58] LABS: ALANINE AMINOTRANSFERASE 74 U/L (0-55); LIPASE 23 U/L (8-78)
[2021-02-10 16:00] LABS: BAND NEUTROPHILS 9 %; BASOPHILS % (MANUAL) 0 %; EOSINOPHILS % (MANUAL) 0 %; LYMPHOCYTES % (MANUAL) 25 %; MONOCYTES % (MANUAL) 7 %; NEUTROPHILS % (MANUAL) 59 %; RBC MORPH NORMAL
[2021-02-10 16:05] LABS: INR 1.1 (0.8-1.4); PROTHROMBIN TIME PATIENT 14.3 SEC (12.2-14.7)
[2021-02-10] MEDS ORDERED: metroNIDAZOLE 500MG/100ML IVPB 100 ML IV ONE (16:15)
[2021-02-10] MEDS ORDERED: CEFEPIME INJECTION 1,000 MG in WATER (STERILE) FOR INJECTION 10 ML IV ONE (16:15)
[2021-02-10 16:20] LABS: CLARITY,URINE CLOUDY; COLOR,URINE YELLOW; GLUCOSE, URINE (UA) NEGATIVE (NEGATIVE); KETONES,URINE NEGATIVE (NEGATIVE); LEUKOCYTE ESTERASE ,URINE 2+ (NEGATIVE); NITRITE,URINE NEGATIVE (NEGATIVE); PROTEIN,URINE 2+ (NEGATIVE)
[2021-02-10] MEDS ORDERED: NS 100 ML (IVPB) BAG IV ONE (16:45)
[2021-02-10] MEDS ORDERED: HOLD METFORMIN - RECEIVED CONTRAST 20 ML VIAL IV SCH (16:45)
[2021-02-10] MEDS ORDERED: IOHEXOL 350 MG/ML 100 ML (OMNIPAQUE 350) VIAL IV ONE (16:45)
[2021-02-10 17:05] LABS: BACTERIA,URINE LARGE /HPF; BILIRUBIN,URINE 1+ (NEGATIVE); RBC,URINE RARE /HPF
--- NOTE | 2021-02-10 18:39 | Diagnostic Imaging Report ---
EXAMINATION: CT abdomen and pelvis with intravenous contrast. TECHNIQUE: Multiple contiguous axial images were obtained through the abdomen and pelvis after the uneventful administration of intravenous contrast. All CT scans use one or more of the following dose optimizing techniques: automated exposure control, MA and/or KvP adjustment based on patient size and exam type or iterative reconstruction. HISTORY: Abdominal pain COMPARISON: 03/27/2019 FINDINGS: Limited views of the lower thorax are unremarkable. The liver is normal without focal lesion. There is no biliary ductal dilation. Gallbladder is surgically absent. Pancreas is normal. Spleen is normal. Adrenal glands are normal. The kidneys are normal. There is no hydronephrosis. Urinary bladder is normal. Visualized bowel is normal in caliber without obstruction or inflammation. No free fluid or air. No abdominal or pelvic lymphadenopathy. Aorta is normal in caliber without aneurysm. There are no suspicious osseous lesions. IMPRESSION: 1. No acute abnormality in the abdomen or pelvis. Dictated by: Dictated on workstation # [id number]
[2021-02-10] MEDS ORDERED: ANTACID SUSP 30 ML UDC (MYLANTA) PO ONE (18:45)
[2021-02-10] MEDS ORDERED: LIDOCAINE 2% VISCOUS 15 ML UDC PO ONE (18:45)
[2021-02-10] MEDS ORDERED: SUCR1TAB36 PO (19:47)
[2021-02-10 19:49] VITALS: BP 118/75
== END 2021-02-10 19:54 | disposition home or self-care (01) ==
LOC: EDUNIT# 14:52 → ER 14:55
DX: K29.70 Gastritis, unspecified, without bleeding (principal); J44.9 Chronic obstructive pulmonary disease, unspecified; G47.30 Sleep apnea, unspecified; I10 Essential (primary) hypertension; E78.00 Pure hypercholesterolemia, unspecified; F41.9 Anxiety disorder, unspecified; F32.9 Major depressive disorder, single episode, unspecified; R00.0 Tachycardia, unspecified; K21.9 Gastro-esophageal reflux disease without esophagitis; E11.9 Type 2 diabetes mellitus without complications; Z79.899 Other long term (current) drug therapy; Z79.52 Long term (current) use of systemic steroids
CPT/HCPCS: 36415; 71045; 74177; 80053; 81000; 82274; 83605; 83690; 84145; 85007; 85027; 85610; 85730; 86141; 87040; 87077; 87088; 87186; 87324; 87449; 89055

== ENCOUNTER 2021-05-05 00:53 | Emergency (ER) | payer MEDICAID ==
[~2021-05-05] VITALS: Ht 157 cm; Wt 95.0 kg
[~2021-05-05 00:53] MED LIST changes: +CLIN-144 PO; -CLIN300C12 PO; +DICY20TA PO; -DICY20TA10 PO; +MONT-40 PO; -MONT10TA32 PO; -TERB250T16 PO; +TERB250T88 PO
[2021-05-05] MEDS ORDERED: KETOROLAC 30 MG/ML VIAL IVP STA (01:09)
[2021-05-05] MEDS ORDERED: LACTATED RINGERS 1,000 ML IV ONE (01:15)
--- NOTE | 2021-05-05 01:16 | ED GI ---
General Chief Complaint: Abdominal/GI Problems Stated Complaint: ABD PAIN Nursing Triage Note: BROUGHT IN BY [facility] FOR LOWER ABDOMINAL PAIN FOR APPROX. 30MIN. PT REPORTS SHE IS SCHEDULED FOR COLONOSCOPY 05/05/20 FOR DIARRHEA X3 WEEKS. Source of Information: Patient (VERY POOR HISTORIAN) History of Present Illness Date Seen by Provider: May 05, 2021 Time Seen by Provider: 01:00 Initial Comments PT ARRIVES VIA EMS FROM HOME PT C/O LOWER ABDOMINAL CRAMPING THAT BEGAN APPROXIMATELY 30 MINUTES PRIOR TO ARRIVAL PT STATES SHE IS SUPPOSED TO HAVE A COLONOSCOPY LATER THIS MORNING BY DR. SHERWOOD --STATES SOMEONE FROM HOSPITAL IS PICKING HER UP AT 0915 THIS AM AND BRING HER TO THE HOSPITAL PT HAS NOT DONE ANY KIND OF PREP--SHE STATES "THEY DIDN'T GIVE ME ANYTHING" "DIDN'T KNOW I WAS SUPPOSED TO DO ANYTHING" STATES SHE HAS BEEN HAVING DIARRHEA, WITH BLOOD IN IT, FOR THE LAST 3 WEEKS--SHE STATES THIS IS THE REASON SHE IS HAVING A COLONOSCOPY HAD NAUSEA AND VOMITED X 1 TONIGHT NO FEVER HAS HAD BURNING ON URINATION TOOK IBUPROFEN X 1 EARLIER TODAY PT HAS HAD PRIOR HYSTERECTOMY/BSO, APPENDECTOMY AND CHOLECYSTECTOMY HAS ALSO HAD SURGERY FOR BSO/LYSIS OF ADHESIONS PT DENIES PRIOR GI/COLON PROBLEMS--PRIOR TO 3 WEEKS AGO PER OLD RECORDS, PT HAS HISTORY OF DIVERTICULITIS, AND HAS BEEN SEEN HERE MULTIPLE TIMES FOR THESE SAME/SIMILAR COMPLAINTS PT IS NOT ON ASPIRIN OR BLOOD THINNERS PCP: G[facility] MORT[facility] 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 AT [facility] Allergies and Home Medications Allergies Coded Allergies: Penicillins (Verified Allergy, Unknown, 08/20/15) tuberculin, purified protein deriva (Verified Adverse Reaction, Mild, 08/20/15) Patient Home Medication List Home Medication List Reviewed: Yes Albuterol Sulfate (Proair Hfa) 8.5 Gm Hfa.aer.ad, 2 PUFF INH Q6H PRN for SHORTNESS OF BREATH, (Reported) Entered as Reported by: MARTHA IVAN on 08/20/15 1428 Aripiprazole (Aripiprazole) 10 Mg Tablet, 10 MG PO DAILY, (Reported) Entered as Reported by: MARTHA IVAN on 01/25/18 0927 Cefdinir (Cefdinir) 300 Mg Capsule, 300 MG PO BID Prescribed by: MARY ALCALA on 06/24/18 1726 Cetirizine HCl (Cetirizine HCl) 10 Mg Tablet, 10 MG PO DAILY, (Reported) Entered as Reported by: MARTHA IVAN on 08/20/15 1428 Clotrimazole/Betamethasone Dip (Clotrimazole-Betamethasone Crm) 15 Gm Cream..g., TOP DAILY, (Reported) Entered as Reported by: MARTHA IVAN on 01/25/18 0933 Dicyclomine HCl (Dicyclomine HCl) 20 Mg Tablet, 20 MG PO BID, (Reported) Entered as Reported by: UDAY CHAVEZ on 12/18/16 1345 Fluticasone Propionate (Fluticasone Propionate) 16 Gm [place].susp, 2 SPRAYS NS DAILY, (Reported) Entered as Reported by: MARTHA IVAN on 01/25/18 09 Hyoscyamine Sulfate (Levsin-Sl) 0.125 Mg Tab.subl, 1-2 TAB SL Q4H Prescribed by: VLADIMIR MARK on 03/27/19222 Lovastatin (Lovastatin) 40 Mg Tablet, 40 MG PO DAILY, (Reported) Entered as Reported by: MARTHA IVAN on 01/25/18 0927 Montelukast Sodium (Montelukast Sodium) 10 Mg Tablet, 10 MG PO DAILY, (Reported) Entered as Reported by: MARTHA IVAN on 01/07/16 0916 Omeprazole (Omeprazole) 40 Mg Capsule.dr, 40 MG PO DAILY PRN for HEARTBURN, (Reported) Entered as Reported by: MARTHA IVAN on 01/25/18 09 Ondansetron (Ondansetron Odt) 4 Mg Tab.rapdis, 4 MG PO Q6H PRN for NAUSEA/VOMITING Prescribed by: MARY ALCALA on 06/24/18 172 Ondansetron (Ondansetron Odt) 4 Mg Tab.rapdis, 4 MG PO Q4H Prescribed by: VLADIMIR MARK on 03/27/19222 Pantoprazole Sodium (Protonix) 40 Mg Tablet.dr, 40 MG PO DAILY Prescribed by: VLADIMIR MARK on 03/27/19222 Prednisone (Prednisone) 20 Mg Tab, 40 MG PO DAILY Prescribed by: MARY ALCALA on 06/24/18 172 Promethazine HCl/Codeine (Prometh-Codein 6.25-10 mg/5 ml) 5 Ml Syrup, 5 ML PO Q6H Prescribed by: MARY ALCALA on 06/24/18 1726 Propranolol HCl (Propranolol HCl) 40 Mg Tablet, 40 MG PO BID, (Reported) Entered as Reported by: MARTHA IVAN on 01/25/18926 Sertraline HCl (Sertraline HCl) 50 Mg Tablet, 50 MG PO DAILY, (Reported) Entered as Reported by: UDAY CHAVEZ on 12/18/16 1345 Sucralfate (Carafate) 1 Gm Tablet, 1 GM PO AC Prescribed by: VALDEMAR GUZMAN on 02/10/211946 Sulfamethoxazole/Trimethoprim (Bactrim Ds Tablet) 1 Each Tablet, 1 EACH PO BID Prescribed by: BRIONNA DARBY on 09/28/19 09 Terbinafine HCl (Terbinafine HCl) 250 Mg Tablet, 250 MG PO DAILY Prescribed by: BRIONNA DARBY on 09/28/19956 Trazodone HCl (Trazodone HCl) 100 Mg Tablet, 100 MG PO HS, (Reported) Entered as Reported by: MARTHA IVAN on 01/25/18926 Review of Systems Review of Systems Constitutional: no symptoms reported Respiratory: No Symptoms Reported Cardiovascular: No Symptoms Reported Gastrointestinal: See HPI, Abdominal Pain, Diarrhea, Nausea, Vomiting Genitourinary: See HPI, Burning Musculoskeletal: no symptoms reported Skin: no symptoms reported Psychiatric/Neurological: Anxiety Endocrine: No Symptoms Reported Hematologic/Lymphatic: No Symptoms Reported Past Mpmbzgo-Xsvued-Jbaogi Hx Patient Social History Tobacco Use?: Yes Tobacco type used: Cigarettes Smoking Status: Current Everyday Smoker Substance use?: No Alcohol Use?: Yes Pt feels they are or have been: No Immunizations Up To Date Tetanus Booster (TDap): Unknown PED Vaccines UTD: Yes First/Initial COVID19 Vaccinat: July 2020 Second COVID19 Vaccination James: 04/22 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 History: 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, 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 Sexually Transmitted Disease: No HIV/AIDS: No Genitourinary: Yes UTI-Chronic Gastrointestinal: Yes Gastroesophageal Reflux, Obstructive Bowel, Diverticulosis, Ulcer Musculoskeletal: Yes Chronic Back Pain Endocrine: No Diabetes, Non-Insulin dep HEENT: Yes Tinnitis Loss of Vision: Denies Hearing Impairment: Denies Cancer: No Psychosocial: Yes Anxiety, Suicide Attempts, Depression Integumentary: Yes (intertrigo) Blood Disorders: No Adverse Reaction/Blood Tranf: No Family Medical History Congenital heart disease G8 SISTER (HOLE IN HEART ) Neoplasm 19 MOTHER (STOMACH ) G8 BROTHER (STOMACH) No Pertinent Family Hx SOCIAL HISTORY: -SMOKING-SMOKES 1 PPD -ETOH--REGULAR USE, VERY HEAVY AT TIMES -DRUGS--DENIES USE PAST SURGICAL HISTORY: - X 1 -HYSTERECTOMY/BILATERAL SALPINGO-OOPHORECTOMY -BILATERAL TUBAL LIGATION -CHOLECYSTECTOMY -APPENDECTOMY -LAPAROSCOPY FOR SMALL BOWEL OBSTRUCTION/LYSIS OF ADHESIONS 11/16/2006 -COLONOSCOPIES Physical Exam Vital Signs Vital Signs - First Documented 05/05/21 00:54 Temp 36.8 Pulse 82 Resp 24 B/P (MAP) 138/91 (107) Pulse Ox 100 O2 Delivery Room Air Capillary Refill : Less Than 3 Seconds Height/Weight/BMI Height: 5'2.00" Weight: 168lbs. 0oz. 76.037770eo; 38.00 BMI Method:Stated General Appearance: WD/WN, obese, other (MOANING, HOLDING LOWER ABDOMEN, VERY DRAMATIC, APPEARS VERY IMMATURE. REEKS OF CIGARETTES) Neck: normal inspection Respiratory: normal breath sounds, no respiratory distress Cardiovascular: regular rate, rhythm, no murmur Gastrointestinal: tenderness (SUPRAPUBIC TENDERNESS--VERY EXAGGERATED PAIN RESPONSE) Progress/Results/Core Measures Results/Orders Lab Results Laboratory Tests Test 05/05/21 01:15 05/05/21 01:18 Range/Units Urine Color YELLOW Urine Clarity CLEAR Urine pH 6.5 5-9 Urine Specific [place] <=1.005 1.016-1.022 Urine Protein NEGATIVE NEGATIVE Urine Glucose (UA) NEGATIVE NEGATIVE Urine Ketones NEGATIVE NEGATIVE Urine Nitrite NEGATIVE NEGATIVE Urine Bilirubin NEGATIVE NEGATIVE Urine Urobilinogen 0.2 < = 1.0 MG/DL Urine Leukocyte Esterase 2+ H NEGATIVE Urine RBC (Auto) TRACE-I H NEGATIVE Urine RBC 0-2 /HPF Urine WBC 50-100 H /HPF Urine Squamous Epithelial Cells 0-2 /HPF Urine Crystals NONE /LPF Urine Bacteria MODERATE H /HPF Urine Casts PRESENT /LPF Urine Hyaline Casts 0-2 H /LPF Urine Mucus NEGATIVE /LPF Urine Culture Indicated YES White Blood Count 10.0 4.3-11.0 10^3/uL Red Blood Count 4.14 3.80-5.11 10^6/uL Hemoglobin 12.2 11.5-16.0 g/dL Hematocrit 37 35-52 % Mean Corpuscular Volume 90 80-99 fL Mean Corpuscular Hemoglobin 30 25-34 pg Mean Corpuscular Hemoglobin Concent 33 32-36 g/dL Red Cell Distribution Width 13.3 10.0-14.5 % Platelet Count 275 130-400 10^3/uL Mean Platelet Volume 8.4 L 9.0-12.2 fL Immature Granulocyte % (Auto) 0 % Neutrophils (%) (Auto) 50 42-75 % Lymphocytes (%) (Auto) 39 12-44 % Monocytes (%) (Auto) 5 0-12 % Eosinophils (%) (Auto) 5 0-10 % Basophils (%) (Auto) 1 0-10 % Neutrophils # (Auto) 5.1 1.8-7.8 10^3/uL Lymphocytes # (Auto) 3.9 1.0-4.0 10^3/uL Monocytes # (Auto) 0.5 0.0-1.0 10^3/uL Eosinophils # (Auto) 0.5 H 0.0-0.3 10^3/uL Basophils # (Auto) 0.1 0.0-0.1 10^3/uL Immature Granulocyte # (Auto) 0.0 0.0-0.1 10^3/uL Erythrocyte Sedimentation Rate 56 H 0-30 MM/HR Sodium Level 134 L 135-145 MMOL/L Potassium Level 3.8 3.6-5.0 MMOL/L Chloride Level 103 98-107 MMOL/L Carbon Dioxide Level 21 21-32 MMOL/L Anion Gap 10 5-14 MMOL/L Blood Urea Nitrogen 10 7-18 MG/DL Creatinine 0.85 0.60-1.30 MG/DL Estimat Glomerular Filtration Rate 68 BUN/Creatinine Ratio 12 Glucose Level 107 H 70-105 MG/DL Calcium Level 9.0 8.5-10.1 MG/DL Corrected Calcium 8.8 8.5-10.1 MG/DL Total Bilirubin 0.2 0.1-1.0 MG/DL Aspartate Amino Transf (AST/SGOT) 14 5-34 U/L Alanine Aminotransferase (ALT/SGPT) 21 0-55 U/L Alkaline Phosphatase 62 40-136 U/L C-Reactive Protein High Sensitivity 2.75 H 0.00-0.50 MG/DL Total Protein 8.3 H 6.4-8.2 GM/DL Albumin 4.2 3.2-4.5 GM/DL Amylase Level 31 25-125 U/L Lipase 9 8-78 U/L My Orders Orders - VLADIMIR MARK DO Ed Iv/Invasive Line Start (05/05/21 01:09) Amylase (05/05/21 01:09) Cbc With Automated Diff (05/05/21 01:09) Comprehensive Metabolic Panel (05/05/21 01:09) Lipase (05/05/21 01:09) Ua Culture If Indicated (05/05/21 01:09) Ed Iv/Invasive Line Start (05/05/21 01:09) Lactated Ringers (Lr 1000 Ml Iv Solution (05/05/21 01:15) Ketorolac Injection (Toradol Injection) (05/05/21 01:09) Hs C Reactive Protein (05/05/21 01:09) Erythrocyte Sedimentation Rate (05/05/21 01:09) Urine Culture (05/05/21 01:15) Ct Abdomen/Pelvis W (05/05/21 02:03) Iohexol Injection (Omnipaque 350 Mg/Ml 1 (05/05/21 02:30) Received Contrast (Hold Metformin- Contr (05/05/21 02:30) Sodium Chloride Flush (Catheter Flush Sy (05/05/21 02:30) Ns (Ivpb) (Sodium Chloride 0.9% Ivpb Bag (05/05/21 02:30) Ceftriaxone 1 Gm Pre-Mix (Rocephin 1 Gm (05/05/21 02:33) Hyoscyamine Sl Tablet (Levsin Sl Tablet) (05/05/21 03:00) Phenazopyridine Tablet (Pyridium Tablet) (05/05/21 03:00) Medications Given in ED Current Medications Medications Dose Ordered Sig/Anabel Route Start Time Stop Time Status Last Admin Dose Admin Hyoscyamine Sulfate 0.25 mg ONCE ONCE PO 05/05/21 03:00 05/05/21 03:01 DC 05/05/21 03:00 0.25 MG Iohexol 150 ml ONCE ONCE IV 05/05/21 02:30 05/05/21 02:31 DC 05/05/21 02:33 100 ML Lactated Ringer's 1,000 ml @ 0 mls/hr Q0M ONCE IV 05/05/21 01:15 05/05/21 01:16 DC 05/05/21 01:19 0 MLS/HR Phenazopyridine HCl 200 mg ONCE ONCE PO 05/05/21 03:00 05/05/21 03:01 DC 05/05/21 03:00 200 MG Sodium Chloride 10 ml NEEDED PRN IV 05/05/21 02:30 05/05/21 02:33 10 ML Sodium Chloride 100 ml ONCE ONCE IV 05/05/21 02:30 05/05/21 02:31 DC 05/05/21 02:33 80 ML Vital Signs/I&O 05/05/21 00:54 Temp 36.8 Pulse 82 Resp 24 B/P (MAP) 138/91 (107) Pulse Ox 100 O2 Delivery Room Air Blood Pressure Mean: 107 Progress Progress Note : Progress Note GIVEN IV FLUIDS, ZOFRAN AND TORADOL, ALSO LEVSIN AND PYRIDIUM GIVEN ROCEPHIN SYMPTOMS IMPROVED AT DISMISSAL ADVISED PT THAT SHE WOULD NOT BE ABLE TO HAVE HER COLONOSCOPY TODAY, SHE HAS NOT DONE ANY GI PREP FOR IT. Diagnostic Imaging Comments CT ABDOMEN/PELVIS--NO ACUTE PROCESS, PER [facility] VIA FAX AT 5099 Reviewed: Reviewed by Me Departure Impression Primary Impression: Urinary tract infection Additional Impression: Abdominal pain Disposition: 01 HOME, SELF-CARE Condition: Stable Departure-Patient Inst. Decision time for Depature: 03:57 Referrals: [facility] (PCP/Family) Primary Care Physician DANELLE SHERWOOD DO Patient Instructions: Abdominal Pain, Adult ED, Urinary Tract Infection, Adult (DC) Add. Discharge Instructions: LOTS OF CLEAR LIQUIDS--WATER, BROTH, JELLO, GATORADE BRATS DIET--BANANAS, RICE, APPLESAUCE, TOAST, SALTINES TYLENOL NEEDED FOR PAIN CONTACT DR. SHERWOOD FOR FOLLOW UP APPOINTMENT AND TO RESCHEDULE COLONOSCOPY FOLLOW UP WITH [facility] THIS WEEK TO RECHECK URINE All discharge instructions reviewed with patient and/or family. Voiced understanding. Scripts Ondansetron (Ondansetron Odt) 4 Mg Tab.rapdis 4 MG PO Q4H for Nausea/Vomiting, #10 TAB Prov: VLADIMIR MARK DO 05/05/21 Hyoscyamine Sulfate (Levsin-Sl) 0.125 Mg Tab.subl 0.25 MG SL Q4H, #10 TAB Prov: VLADIMIR MARK DO 05/05/21 Phenazopyridine HCl (Pyridium) 200 Mg Tablet 1 TAB PO TID, #15 TAB Prov: VLADIMIR MARK DO 05/05/21 Nitrofurantoin Monohyd/M-Cryst (Macrobid 100 mg Capsule) 100 Mg Capsule 1 TAB PO BID, #20 CAP Prov: VLADIMIR MARK DO 05/05/21 VLADIMIR MARK DO May 05, 2021 01:16
[2021-05-05 01:19] LABS: BILIRUBIN,URINE NEGATIVE (NEGATIVE); CLARITY,URINE CLEAR; COLOR,URINE YELLOW; GLUCOSE, URINE (UA) NEGATIVE (NEGATIVE); KETONES,URINE NEGATIVE (NEGATIVE); LEUKOCYTE ESTERASE ,URINE 2+ (NEGATIVE); NITRITE,URINE NEGATIVE (NEGATIVE); PH,URINE 6.5 (5-9); PROTEIN,URINE NEGATIVE (NEGATIVE)
[2021-05-05 01:26] LABS: BASOPHILS # (AUTO) 0.1 10^3/uL (0.0-0.1); BASOPHILS % (AUTO) 1 % (0-10); EOSINOPHILS # (AUTO) 0.5 10^3/uL (0.0-0.3); EOSINOPHILS % (AUTO) 5 % (0-10); HEMATOCRIT 37 % (35-52); HEMOGLOBIN 12.2 g/dL (11.5-16.0); LYMPHOCYTES # (AUTO) 3.9 10^3/uL (1.0-4.0); LYMPHOCYTES % (AUTO) 39 % (12-44); MEAN CORPUSCULAR HEMOGLOBIN 30 pg (25-34); MEAN CORPUSCULAR HGB CONC 33 g/dL (32-36); MEAN CORPUSCULAR VOLUME 90 fL (80-99); MEAN PLATELET VOLUME 8.4 fL (9.0-12.2); MONOCYTES # (AUTO) 0.5 10^3/uL (0.0-1.0); MONOCYTES % (AUTO) 5 % (0-12); NEUTROPHILS # (AUTO) 5.1 10^3/uL (1.8-7.8); NEUTROPHILS % (AUTO) 50 % (42-75); PLATELET COUNT 275 10^3/uL (130-400)
[2021-05-05 01:27] LABS: RBC,URINE 0-2 /HPF
[2021-05-05 01:28] LABS: BACTERIA,URINE MODERATE /HPF; HYALINE CASTS, URINE 0-2 /LPF; SQUAMOUS EPITHELIAL CELL,UR 0-2 /HPF; WBC,URINE 50-100 /HPF
[2021-05-05 01:40] LABS: ALBUMIN 4.2 GM/DL (3.2-4.5); POTASSIUM 3.8 MMOL/L (3.6-5.0)
[2021-05-05 01:43] LABS: TOTAL PROTEIN 8.3 GM/DL (6.4-8.2)
[2021-05-05 01:44] LABS: BILIRUBIN,TOTAL 0.2 MG/DL (0.1-1.0)
[2021-05-05 01:46] LABS: CREATININE SERUM 0.85 MG/DL (0.60-1.30)
[2021-05-05 02:17] LABS: ERYTHROCYTE SEDIMENTATION RATE 56 MM/HR (0-30)
[2021-05-05] MEDS ORDERED: IOHEXOL 350 MG/ML 150 ML (OMNIPAQUE 350) VIAL IV ONE (02:30)
[2021-05-05] MEDS ORDERED: HOLD METFORMIN - RECEIVED CONTRAST 20 ML VIAL IV SCH (02:30)
[2021-05-05] MEDS ORDERED: CATHETER FLUSH 10 ML SYR IV PRN (02:30)
[2021-05-05] MEDS ORDERED: NS 100 ML (IVPB) BAG IV ONE (02:30)
[2021-05-05] MEDS ORDERED: cefTRIAXone 1 GM PRE-MIX 50 ML IV STA (02:33)
[2021-05-05] MEDS ORDERED: HYOSCYAMINE 0.125 MG (LEVSIN) TAB PO ONE (03:00)
[2021-05-05] MEDS ORDERED: PHENAZOPYRIDINE 100 MG (PYRIDIUM) TABLET PO ONE (03:00)
[2021-05-05] MEDS ORDERED: ONDA4TAB11 PO (04:00)
[2021-05-05] MEDS ORDERED: HYOS0.1283 SL (04:00)
[2021-05-05] MEDS ORDERED: NITR-65 PO (04:00)
[2021-05-05] MEDS ORDERED: PHEN-640 PO (04:00)
[2021-05-05 04:05] VITALS: BP 126/75
--- NOTE | 2021-05-05 04:19 | Diagnostic Imaging Report ---
EXAMINATION: CT abdomen and pelvis with intravenous contrast. TECHNIQUE: Multiple contiguous axial images were obtained through the abdomen and pelvis after the uneventful administration of intravenous contrast. All CT scans use one or more of the following dose optimizing techniques: automated exposure control, MA and/or KvP adjustment based on patient size and exam type or iterative reconstruction. HISTORY: Abdominal pain, bloody diarrhea COMPARISON: 02/10/2021 FINDINGS: Limited views of the lower thorax are unremarkable. The liver is normal without focal lesion. There is no biliary ductal dilation. Gallbladder is surgically absent. Pancreas is normal. Spleen is normal. Adrenal glands are normal. The kidneys are normal. There is no hydronephrosis. Urinary bladder is normal. Bowel is normal in caliber without obstruction or inflammation. No free fluid or air. No abdominal or pelvic lymphadenopathy. Aorta is normal in caliber without aneurysm. There are no suspicious osseus lesions. IMPRESSION: 1. No acute abnormality in the abdomen or pelvis. There is no significant disagreement with the preliminary report. Dictated by: Dictated on workstation # [id number]
== END 2021-05-05 04:08 | disposition home or self-care (01) ==
LOC: EDUNIT# 00:53 → ER 00:55
DX: N39.0 Urinary tract infection, site not specified (principal); J44.9 Chronic obstructive pulmonary disease, unspecified; G47.30 Sleep apnea, unspecified; I10 Essential (primary) hypertension; K21.9 Gastro-esophageal reflux disease without esophagitis; E78.00 Pure hypercholesterolemia, unspecified; F41.9 Anxiety disorder, unspecified; E66.9 Obesity, unspecified; F32.9 Major depressive disorder, single episode, unspecified; E11.9 Type 2 diabetes mellitus without complications; F17.210 Nicotine dependence, cigarettes, uncomplicated; Z68.38 Body mass index [BMI] 38.0-38.9, adult; Z79.899 Other long term (current) drug therapy
CPT/HCPCS: 36415; 74177; 80053; 81000; 82150; 83690; 85025; 85652; 86141; 87077; 87088; 87186

== ENCOUNTER 2021-05-14 05:33 | Outpatient (CLI) | payer MEDICAID ==
[~2021-05-14] VITALS: Ht 157.5 cm; Wt 96.2 kg
[~2021-05-14 05:33] MED LIST changes: +PHEN-640 PO
== END 2021-05-15 10:35 | disposition home or self-care (01) ==
LOC: PREOP 05:33
PROVIDERS: ATTEND Surgery
DX: Z01.818 Encounter for other preprocedural examination (principal)

== ENCOUNTER → 2021-05-21 | Day surgery (SDC) | payer MEDICAID ==
[~2021-05-21] VITALS: Ht 157 cm; Wt 96.0 kg
[~2021-05-21] MED LIST changes: +LACTATED RINGERS 1,000 ML IV ONE; +LACTATED RINGERS 1,000 ML IV STA; +PROPOFOL INJECTION 50 ML IV ONE
--- NOTE | 2021-05-21 07:21 | Progress Note-Pre Operative ---
Pre-Operative Progress Note H&P Reviewed The H&P was reviewed, patient examined and no changes noted. Date Seen by Provider: May 21, 2021 Time Seen by Provider: 07:16 Date H&P Reviewed: May 21, 2021 Time H&P Reviewed: 07:16 Pre-Operative Diagnosis: altered bowel function, hematochezia, rlq abd pain DANELLE SHERWOOD DO May 21, 2021 07:21
[2021-05-21 07:25] VITALS: BP 141/84
[2021-05-21 08:30] VITALS: BP 91/52
[2021-05-21 08:36] VITALS: BP 94/50
[2021-05-21 09:05] VITALS: BP 119/65
--- NOTE | 2021-05-21 09:38 | Discharge Inst-Simple/Standard ---
Discharge Inst-Standard Patient Instructions/Follow Up Plan of Care/Instructions/FU: 5 years Saige for repeat colonoscopy. Any issues before that be seen at that time. Activity as Tolerated: Yes Discharge Diet: Regular Diet (high fiber) DANELLE SHERWOOD DO May 21, 2021 09:38
--- NOTE | 2021-05-21 09:40 | Progress Note-Post Operative ---
Post-Operative Progess Note Surgeon (s)/Flow Trader (s) Surgeon DANELLE SHERWOOD DO Flow Trader: na Pre-Operative Diagnosis altered bowel function, hematochezia, rlq abd pain, family hx colon cancer Post-Operative Diagnosis diverticulosis Procedure & Operative Findings Date of Procedure 05/21/21 Procedure Performed/Findings colonoscopy Anesthesia Type per creative services manager Estimated Blood Loss Estimated blood loss (mL): none Specimens/Packing Specimens Removed na DANELLE SHERWOOD DO May 21, 2021 09:40
--- NOTE | 2021-05-21 11:17 | Anesthesia-General Post-Op ---
MAC Patient Condition Mental Status/LOC: Same as Preop Cardiovascular: Satisfactory Nausea/Vomiting: Absent Respiratory: Satisfactory Pain: Controlled Complications: Absent Post Op Complications Complications None Follow Up Care/Instructions Patient Instructions None needed. Anesthesiology Discharge Order Discharge Order Patient is doing well, no complaints, stable vital signs, no apparent adverse anesthesia problems. No complications reported per nursing. ANUM GILMORE CRNA May 21, 2021 11:17
--- NOTE | 2021-05-21 16:31 | OPERATIVE REPORT ---
DATE OF SERVICE: 05/21/2021 PREOPERATIVE DIAGNOSES: Altered bowel function, hematochezia, right lower quadrant abdominal pain, and family history of colon cancer. POSTOPERATIVE DIAGNOSIS: Diverticulosis. PROCEDURE PERFORMED: Colonoscopy. SURGEON: Danelle Moulton DO. ANESTHESIA: Per BLOOD DONOR RECRUITER. ESTIMATED BLOOD LOSS: None. COMPLICATIONS: None. INDICATIONS FOR PROCEDURE: The patient is a 60-year-old female with family history of colon cancer, altered bowel function and some hematochezia and recent right lower quadrant abdominal pain. She was recommended a colonoscopy for further evaluation. She understands the risks and benefits. DESCRIPTION OF PROCEDURE: The patient was taken to the endoscopy suite and placed in a left lateral recumbent position. Timeout was performed. Digital rectal exam was performed. No palpable polyps, masses or ulcerations and appearance of possibly a healed fissure. The scope was inserted in the rectum, advanced all the way to the cecum with minimal difficulty. Prep was adequate with irrigation and suction. Scope was then slowly retracted back. No polyps, masses or ulcerations within the cecum, ascending, transverse, descending, and sigmoid colon. In the sigmoid colon, some diverticulosis was present. No other pathology. Scope was continued to be retracted back into the rectum, where it was also retroflexed noting no other pathology. Scope was returned to its normal position, slowly withdrawn until completely removed. The patient tolerated the procedure well without any complications. She was taken to the recovery room in stable condition. RECOMMENDATIONS: The patient will need repeat colonoscopy in five years due to family history of colon cancer. Any issues before that be seen at that time. If pain or symptoms persist, should be reevaluated in the near future. CC: [facility] - requested, unable to deliver. Job ID: [id number] DocumentID: [id number] Dictated Date: 05/21/2021 09:42:17 Jointer Machine Date: 05/21/2021 16:30:25 Dictated By: DANELLE MOULTON DO
== END | disposition home or self-care (01) ==
LOC: ENDO 07:04
PROVIDERS: ATTEND Surgery
DX: K57.31 Diverticulosis of large intestine without perforation or abscess with bleeding (principal); Z80.0 Family history of malignant neoplasm of digestive organs; I10 Essential (primary) hypertension; J44.9 Chronic obstructive pulmonary disease, unspecified; G47.33 Obstructive sleep apnea (adult) (pediatric); F32.A Depression, unspecified; K21.9 Gastro-esophageal reflux disease without esophagitis; Z99.89 Dependence on other enabling machines and devices; Z79.899 Other long term (current) drug therapy; E66.9 Obesity, unspecified; Z68.38 Body mass index [BMI] 38.0-38.9, adult

== ENCOUNTER → 2021-09-19 | Outpatient (CLI) | payer MEDICAID ==
[~2021-09-19] MED LIST changes: +ARIP5TAB57 PO; +ASPI-789 PO; +GADOTERATE 0.5 MMOL/ML (CLARISCAN) 20 ML VIAL IV ONE; -LACTATED RINGERS 1,000 ML IV ONE; -LACTATED RINGERS 1,000 ML IV STA; +PANT40TA52 PO; -PROPOFOL INJECTION 50 ML IV ONE; +SERT-414 PO
--- NOTE | 2021-09-19 16:18 | Diagnostic Imaging Report ---
INDICATION: Headaches and dizziness MRI brain obtained without IV contrast. There is no prior brain MRI for comparison. Diffusion weighted images demonstrate no acute ischemic changes or diffusion signal abnormalities. There are no extra-axial fluid collections. No intracranial hemorrhage. No intracranial mass or mass effect. No midline shift. The ventricles are normal in size and position. There is no significant white matter disease. There is no focal parenchymal abnormalities in the brain. Visualized portions of the sinuses are well aerated. Orbital contents appear unremarkable. Brain stem and corpus callosum are unremarkable. Pituitary appears normal. IMPRESSION: Negative MRI of the brain without contrast. Dictated by: Dictated on workstation # [id number]
== END ==
LOC: RAD 14:00
PROVIDERS: ATTEND Nurse Practitioner
DX: I10 Essential (primary) hypertension (principal); R51.9 Headache, unspecified; R42 Dizziness and giddiness
CPT/HCPCS: 70551

== ENCOUNTER 2021-10-09 09:21 | Inpatient (IN) | payer MEDICAID, MEDICARE ==
[~2021-10-09] VITALS: Ht 157.5 cm; Wt 96.2 kg
[~2021-10-09 09:21] MED LIST changes: -ASPI-789 PO; +ASPI1TAB23 PO; -GADOTERATE 0.5 MMOL/ML (CLARISCAN) 20 ML VIAL IV ONE
[2021-10-09] MEDS ORDERED: ONDANSETRON 4 MG/2 ML (SDV) Z0FRAN IVP ONE (10:00)
[2021-10-09] MEDS ORDERED: PROMETHAZINE INJ 25 MG/ML (PHENERGAN) AMP IVP STA (10:09)
[2021-10-09] MEDS ORDERED: PROMETHAZINE INJ 25 MG/ML (PHENERGAN) AMP ONE (10:10)
[2021-10-09 10:11] LABS: BASOPHILS % (AUTO) 0 % (0-10); EOSINOPHILS # (AUTO) 0.2 10^3/uL (0.0-0.3); EOSINOPHILS % (AUTO) 3 % (0-10); HEMATOCRIT 36 % (35-52); HEMOGLOBIN 11.9 g/dL (11.5-16.0); LYMPHOCYTES # (AUTO) 2.5 10^3/uL (1.0-4.0); LYMPHOCYTES % (AUTO) 29 % (12-44); MEAN CORPUSCULAR HEMOGLOBIN 30 pg (25-34); MEAN CORPUSCULAR HGB CONC 34 g/dL (32-36); MEAN CORPUSCULAR VOLUME 90 fL (80-99); MEAN PLATELET VOLUME 8.6 fL (9.0-12.2); MONOCYTES # (AUTO) 0.5 10^3/uL (0.0-1.0); MONOCYTES % (AUTO) 6 % (0-12); NEUTROPHILS # (AUTO) 5.3 10^3/uL (1.8-7.8); NEUTROPHILS % (AUTO) 62 % (42-75); PLATELET COUNT 261 10^3/uL (130-400); WHITE BLOOD COUNT 8.6 10^3/uL (4.3-11.0)
[2021-10-09 10:17] LABS: ALBUMIN 3.9 GM/DL (3.2-4.5); CHLORIDE 108 MMOL/L (98-107); POTASSIUM 4.2 MMOL/L (3.6-5.0); SODIUM 143 MMOL/L (135-145)
[2021-10-09 10:19] LABS: CALCIUM 8.8 MG/DL (8.5-10.1)
[2021-10-09 10:20] LABS: GLUCOSE 118 MG/DL (70-105); TOTAL PROTEIN 7.3 GM/DL (6.4-8.2)
[2021-10-09 10:21] LABS: BILIRUBIN,TOTAL 0.2 MG/DL (0.1-1.0); CARBON DIOXIDE 23 MMOL/L (21-32)
[2021-10-09 10:23] LABS: ALKALINE PHOSPHATASE 51 U/L (40-136); CREATININE SERUM 0.78 MG/DL (0.60-1.30); GFR ESTIMATED 87
--- NOTE | 2021-10-09 10:23 | Diagnostic Imaging Report ---
Clinical indications: Patient with dizziness, nausea and headache x1 week. EXAM: Portable chest x-ray upright view. COMPARISON: Chest x-ray dated 08/12/2021. CT scan of the abdomen and pelvis with contrast dated 05/05/2021. FINDINGS: Lungs/pleura: Lungs are clear. There is no pneumothorax. There is no pleural effusion. Mediastinum: Again seen prominent pericardial fat-pad, which is best seen on comparison CT scan of the abdomen and pelvis. Unremarkable. Pulmonary vasculature: Unremarkable. Heart: Unremarkable. Bones/extrathoracic soft tissue: Unremarkable. IMPRESSION: Stable chest x-ray exam with no interval radiographic evidence of acute cardiopulmonary process. Dictated by: Dictated on workstation # [id number]
[2021-10-09 10:24] LABS: BUN/CREATININE RATIO 26
[2021-10-09 10:26] LABS: ALANINE AMINOTRANSFERASE 20 U/L (0-55); MAGNESIUM 1.8 MG/DL (1.6-2.4)
[2021-10-09 10:46] LABS: TSH (THYROID ANALYZER) 2.47 UIU/ML (0.35-4.94)
--- NOTE | 2021-10-09 10:48 | Diagnostic Imaging Report ---
INDICATION: dizziness, headache TECHNIQUE: Routine non contrast-enhanced axial images were obtained from the skull base to the vertex. Auto Exposure Controls were utilized during the CT exam to meet ALARA standards for radiation dose reduction COMPARISON: 08/12/2021 FINDINGS: The ventricles and cortical sulci are stable in size and contour. There is no midline shift or mass-effect. No acute intra-axial hemorrhage is seen. There are no abnormal areas of increased or decreased density to suggest acute hemorrhage or edema. No extra-axial masses or collections are present. The bony calvarium is intact. The visualized paranasal sinuses are unremarkable. The mastoid air cells are clear. IMPRESSION: 1. No acute intracranial abnormality. No CT evidence of mass, acute infarct or intracranial hemorrhage. Dictated by: Dictated on workstation # [id number]
--- NOTE | 2021-10-09 11:03 | ED General ---
General Chief Complaint: Dizziness/Syncope Stated Complaint: DIZZY Nursing Triage Note: PT TO ROOM 05 FROM [facility] WITH C/O DIZZYNESS, NAUSEA, AND HEADACHE X1 WEEK. PER EMS, PT RECEIVED 30MG TORADOL AND 8MG OF ZOFRAN AT [facility]. Source of Information: Patient Exam Limitations: No Limitations History of Present Illness Date Seen by Provider: Oct 09, 2021 Time Seen by Provider: 09:44 Initial Comments Here with report of dizziness this been associated with nausea and vomiting and a headache for the last week or 2. Went to [facility] where she has been followed for this and has been given at a dizzy medicine. States that things were worse today and she felt like she was going to pass out. They brought her to the back and gave her Zofran 8 mg IM as well as some Toradol IM. Things were not better and she was noted to be somewhat hypotensive so they called EMS and sent her here. Did have IV established with normal saline running 1 L bolus which is continuing. Patient's main complaint is nausea and vomiting. Timing/Duration: Changing Over Time, Other (2 weeks) Severity: Moderate Associated Systoms: No Chest Pain, No Cough, No Fever/Chills; Headaches, Nausea/Vomiting; No Shortness of Air; Weakness Allergies and Home Medications Allergies Coded Allergies: Penicillins (Verified Allergy, Unknown, 08/20/15) tuberculin, purified protein deriva (Verified Adverse Reaction, Mild, 08/20/15) Patient Home Medication List Home Medication List Reviewed: Yes Albuterol Sulfate (Proair Hfa) 8.5 Gm Hfa.aer.ad, 2 PUFF INH Q6H PRN for SHORTNESS OF BREATH, (Reported) Entered as Reported by: MARTHA IVAN on 08/20/15 1428 Last Action: Reviewed Aripiprazole (Aripiprazole) 5 Mg Tablet, 5 MG PO DAILY, (Reported) Entered as Reported by: CAL MARTINEZ on 08/13/21 0989 Last Action: Reviewed Aspirin/Acetaminophen/Caffeine (Pain Reliever Plus Tablet) 250 Mg-250 Mg-65 Mg Tablet, 2 EA PO Q6- 8H PRN for HEADACHE, (Reported) Entered as Reported by: CAL MARTINEZ on 10/09/21 1502 Last Action: Reviewed Cetirizine HCl (Cetirizine HCl) 10 Mg Tablet, 10 MG PO DAILY, (Reported) Entered as Reported by: MARTHA IVAN on 08/20/15 1428 Last Action: Reviewed Dicyclomine HCl (Dicyclomine HCl) 20 Mg Tablet, 20 MG PO ACHS, (Reported) Entered as Reported by: CAL MARTINEZ on 08/13/21956 Last Action: Reviewed Lisinopril (Lisinopril) 40 Mg Tablet, 40 MG PO DAILY, (Reported) Entered as Reported by: CAL MARTINEZ on 10/09/21 1502 Last Action: Reviewed Lovastatin (Lovastatin) 40 Mg Tablet, 40 MG PO DAILY, (Reported) Entered as Reported by: MARTHA IVAN on 01/25/18926 Last Action: Reviewed Montelukast Sodium (Montelukast Sodium) 10 Mg Tablet, 10 MG PO DAILY, (Reported) Entered as Reported by: CAL MARTINEZ on 08/13/21956 Last Action: Reviewed Pantoprazole Sodium (Pantoprazole Sodium) 40 Mg Tablet.dr, 40 MG PO DAILY, (Reported) Entered as Reported by: CAL MARTINEZ on 08/13/21956 Last Action: Reviewed Propranolol HCl (Propranolol HCl) 40 Mg Tablet, 40 MG PO 0800,1600, (Reported) Entered as Reported by: MARTHA IVAN on 01/25/18926 Last Action: Reviewed Sertraline HCl (Sertraline HCl) 100 Mg Tablet, 100 MG PO DAILY, (Reported) Entered as Reported by: HUSSEIN GONZALES on 08/12/21 1800 Last Action: Reviewed Trazodone HCl (Trazodone HCl) 100 Mg Tablet, 200 MG PO HS, (Reported) Entered as Reported by: MARTHA IVAN on 01/25/18926 Last Action: Reviewed Discontinued Medications Aspirin/Acetaminophen/Caffeine (Excedrin Migraine Caplet) 1 Each Tablet, 2 EACH PO Q6-8HR PRN for Headache, (Reported) Discontinued Reason: Duplicate Order Entered as Reported by: CAL MARTINEZ on 08/13/21 0959 Last Action: Discontinued Meclizine HCl (Meclizine HCl) 25 Mg Tablet, 25 MG PO Q6H PRN for DIZZINESS Discontinued Reason: No Longer Taking Prescribed by: HUSSEIN GONZALES on 08/14/21 1109 Last Action: Discontinued Review of Systems Review of Systems Constitutional: see HPI; No chills; dizziness; No fever; weakness EENTM: No nose congestion, No throat pain Respiratory: No cough, No short of breath Cardiovascular: No chest pain, No edema Gastrointestinal: No abdominal pain, No diarrhea; nausea, vomiting Genitourinary: no symptoms reported Musculoskeletal: No back pain, No neck pain Skin: no symptoms reported Psychiatric/Neurological: Anxiety, Headache Hematologic/Lymphatic: No Symptoms Reported All Other Systems Reviewed Negative Unless Noted: Yes Past Ptakwvq-Rsgtgv-Qyhhic Hx Patient Social History Tobacco Use?: No Smoking Status: Never a Smoker Smokeless Tobacco Frequency: Never a User Use of E-Cig and/or Vaping dev: No Use of E-Cig and/or Vaping Julien: Never a User Substance use?: No Alcohol Use?: No Pt feels they are or have been: No Immunizations Up To Date Tetanus Booster (TDap): Unknown PED Vaccines UTD: Yes First/Initial COVID19 Vaccinat: 07/2021 Second COVID19 Vaccination James: 07/3021 Third COVID19 Vaccination Date: 04/29/2021 Seasonal Allergies Seasonal Allergies: No Past Medical History Surgery/Hospitalization HX: APPY,KENNEDY, , HYSTERECTOMY, OOPHERECTOMY, TB, HTN, HIGH CHOLESTEROL, CAMACHO, SYNCOPE, KEVIN, GERD, DIVERTICULITIS, CHRONIC BACK PAIN, ANXIETY, DEPRESSION. 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, 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 Sexually Transmitted Disease: No HIV/AIDS: No Genitourinary: Yes UTI-Chronic Gastrointestinal: Yes Gastroesophageal Reflux, Obstructive Bowel, Diverticulosis, Ulcer Musculoskeletal: Yes Chronic Back Pain Endocrine: No Diabetes, Non-Insulin dep HEENT: Yes Tinnitis Loss of Vision: Denies Hearing Impairment: Denies Cancer: No Psychosocial: Yes Anxiety, Suicide Attempts, Depression Integumentary: Yes (intertrigo) Blood Disorders: No Adverse Reaction/Blood Tranf: No Family Medical History Reviewed Nursing Family Hx Congenital heart disease G8 SISTER (HOLE IN HEART ) Neoplasm 19 MOTHER (STOMACH ) G8 BROTHER (STOMACH) Physical Exam Vital Signs Vital Signs - First Documented 10/09/21 09:21 Temp 35.8 Pulse 91 Resp 16 B/P (MAP) 157/108 (124) O2 Delivery Room Air Capillary Refill : Less Than 3 Seconds Height, Weight, BMI Height: 5'2.00" Weight: 168lbs. 0oz. 76.385388cd; 38.00 BMI Method:Stated General Appearance: Mild Distress, Obese HEENT: PERRL/EOMI, TMs Normal, Pharynx Normal Neck: Non Tender, Supple Respiratory: Lungs Clear, Normal Breath Sounds Cardiovascular: Regular Rate, Rhythm, No Murmur Gastrointestinal: Non Tender, Soft Back: Normal Inspection, No CVA Tenderness, No Vertebral Tenderness Extremity: Normal Range of Motion, Non Tender Neurologic/Psychiatric: Alert, Oriented x3 Skin: Normal Color, Warm/Dry Progress/Results/Core Measures Suspected Sepsis SIRS Temperature: Pulse: 91 Respiratory Rate: 16 Laboratory Tests 10/09/21 09:28: White Blood Count 8.6 Blood Pressure 157 /108 Mean: 124 Laboratory Tests 10/09/21 09:28: Creatinine 0.78, Platelet Count 261, Total Bilirubin 0.2 Results/Orders Lab Results Laboratory Tests Test 10/09/21 09:26 10/09/21 09:28 10/09/21 10:05 10/09/21 11:14 Range/Units Glucometer 117 H 70-110 MG/DL White Blood Count 8.6 4.3-11.0 10^3/uL Red Blood Count 3.93 3.80-5.11 10^6/uL Hemoglobin 11.9 11.5-16.0 g/dL Hematocrit 36 35-52 % Mean Corpuscular Volume 90 80-99 fL Mean Corpuscular Hemoglobin 30 25-34 pg Mean Corpuscular Hemoglobin Concent 34 32-36 g/dL Red Cell Distribution Width 14.1 10.0-14.5 % Platelet Count 261 130-400 10^3/uL Mean Platelet Volume 8.6 L 9.0-12.2 fL Immature Granulocyte % (Auto) 1 % Neutrophils (%) (Auto) 62 42-75 % Lymphocytes (%) (Auto) 29 12-44 % Monocytes (%) (Auto) 6 0-12 % Eosinophils (%) (Auto) 3 0-10 % Basophils (%) (Auto) 0 0-10 % Neutrophils # (Auto) 5.3 1.8-7.8 10^3/uL Lymphocytes # (Auto) 2.5 1.0-4.0 10^3/uL Monocytes # (Auto) 0.5 0.0-1.0 10^3/uL Eosinophils # (Auto) 0.2 0.0-0.3 10^3/uL Basophils # (Auto) 0.0 0.0-0.1 10^3/uL Immature Granulocyte # (Auto) 0.0 0.0-0.1 10^3/uL Sodium Level 143 135-145 MMOL/L Potassium Level 4.2 3.6-5.0 MMOL/L Chloride Level 108 H 98-107 MMOL/L Carbon Dioxide Level 23 21-32 MMOL/L Anion Gap 12 5-14 MMOL/L Blood Urea Nitrogen 20 H 7-18 MG/DL Creatinine 0.78 0.60-1.30 MG/DL Estimat Glomerular Filtration Rate 87 BUN/Creatinine Ratio 26 Glucose Level 118 H 70-105 MG/DL Calcium Level 8.8 8.5-10.1 MG/DL Corrected Calcium 8.9 8.5-10.1 MG/DL Magnesium Level 1.8 1.6-2.4 MG/DL Total Bilirubin 0.2 0.1-1.0 MG/DL Aspartate Amino Transf (AST/SGOT) 14 5-34 U/L Alanine Aminotransferase (ALT/SGPT) 20 0-55 U/L Alkaline Phosphatase 51 40-136 U/L Troponin I < 0.028 <0.028 NG/ML C-Reactive Protein High Sensitivity 1.51 H 0.00-0.50 MG/DL Total Protein 7.3 6.4-8.2 GM/DL Albumin 3.9 3.2-4.5 GM/DL TSH [place] Testing 2.47 0.35-4.94 UIU/ML D-Dimer 0.27 0.00-0.49 UG/ML Urine Color YELLOW Urine Clarity CLEAR Urine pH 5.5 5-9 Urine Specific [place] >=1.030 1.016-1.022 Urine Protein NEGATIVE NEGATIVE Urine Glucose (UA) NEGATIVE NEGATIVE Urine Ketones NEGATIVE NEGATIVE Urine Nitrite NEGATIVE NEGATIVE Urine Bilirubin NEGATIVE NEGATIVE Urine Urobilinogen 0.2 < = 1.0 MG/DL Urine Leukocyte Esterase NEGATIVE NEGATIVE Urine RBC (Auto) NEGATIVE NEGATIVE Urine RBC RARE /HPF Urine WBC RARE /HPF Urine Squamous Epithelial Cells 10-25 H /HPF Urine Crystals PRESENT H /LPF Urine Amorphous Sediment FEW RAMIRO URATES H /LPF Urine Bacteria FEW H /HPF Urine Casts NONE /LPF Urine Mucus NEGATIVE /LPF Urine Culture Indicated NO My Orders Orders - MARY ALCALA MD Cbc With Automated Diff (10/09/21 09:55) Comprehensive Metabolic Panel (10/09/21 09:55) Hs C Reactive Protein (10/09/21 09:55) Fibrin Degradation Products (10/09/21 09:55) Magnesium (10/09/21 09:55) Thyroid Analyzer (10/09/21 09:55) Troponin I Leti (10/09/21 09:55) Ct Head Wo (10/09/21 09:55) Chest 1 View, Ap/Pa Only (10/09/21 09:55) Ekg Tracing (10/09/21 09:55) Monitor-Rhythm Ecg Trace Only (10/09/21 09:55) Ondansetron Injection (Zofran Injectio (10/09/21 10:00) Promethazine Injection (Phenergan Injec (10/09/21 10:09) Promethazine Injection (Phenergan Injec (10/09/21 10:10) Ua Culture If Indicated (10/09/21 11:23) Ed Admission (Communication) (10/09/21 12:01) Medications Given in ED Current Medications Medications Dose Ordered Sig/Anabel Route Start Time Stop Time Status Last Admin Dose Admin Ondansetron HCl 4 mg ONCE ONCE IVP 10/09/21 10:00 10/09/21 10:01 DC 10/09/21 10:01 4 MG Vital Signs/I&O 10/09/21 09:21 Temp 35.8 Pulse 91 Resp 16 B/P (MAP) 157/108 (124) O2 Delivery Room Air Capillary Refill : Less Than 3 Seconds Blood Pressure Mean: 124 Progress Note : Progress Note WeSeen and evaluated. Establish outside clinic. Normal saline 1 L bolus fol lowed for labs, EKG, CT head and chest x-ray ordered. Ondansetron 4 mg IV ordered. This was not successful in abating nausea so Phenergan 12.5 mg IV ordered. Monitor patient. 1200: Patient still with persistent dizziness. Fluids are complete. Labs and radiology evaluation reviewed as well as EKG. No significant findings overall although she may be a bit dehydrated. She did have brain MRI last month which did not show any acute findings. I did discuss the case with Dr. Sauceda and she accepts patient for admission, observation status to [facility] unit. Discussed with patient who agrees with plan. ECG Initial ECG Impression Date: Oct 09, 2021 Initial ECG Impression Time: 10:01 Initial ECG Rate: 79 Initial ECG Rhythm: Normal Sinus Initial ECG Impression: Normal Initial ECG Comparisson: Unchanged Comment Sinus rhythm with normal axis. No evidence of ST elevation OR. Similar to previous of 08/12/2021. Interpreted by me. Diagnostic Imaging Diagonstic Imaging: CT Plain Films/CT/US/NM/MRI: head Comments [facility] [place] NAME: LAVELLE RIVERS [facility] REC#: [id number] PT STATUS: REG ER : 1960 PHYSICIAN: MARY ALCALA MD ADMIT DATE: 10/09/21/ER Draft Date of Exam:10/09/21 CT HEAD WO INDICATION: dizziness, headache TECHNIQUE: Routine non contrast-enhanced axial images were obtained from the skull base to the vertex. Auto Exposure Controls were utilized during the CT exam to meet ALARA standards for radiation dose reduction COMPARISON: 08/12/2021 FINDINGS: The ventricles and cortical sulci are stable in size and contour. There is no midline shift or mass-effect. No acute intra-axial hemorrhage is seen. There are no abnormal areas of increased or decreased density to suggest acute hemorrhage or edema. No extra-axial masses or collections are present. The bony calvarium is intact. The visualized paranasal sinuses are unremarkable. The mastoid air cells are clear. IMPRESSION: 1. No acute intracranial abnormality. No CT evidence of mass, acute infarct or intracranial hemorrhage. Dictated on workstation # [id number] Dict: 10/09/21 1044 Trans: 10/09/21 1047 [id number] Interpreted by: MEDARDO BOYER MD Electronically signed by: Rachele Imaging: Xray Plain Films/CT/US/NM/MRI: chest Comments [facility] [place] NAME: LAVELLE RIVERS [facility] REC#: [id number] PT STATUS: REG ER : 1960 PHYSICIAN: MARY ALCALA MD ADMIT DATE: 10/09/21/ER Draft Date of Exam:10/09/21 CHEST 1 VIEW, AP/PA ONLY Clinical indications: Patient with dizziness, nausea and headache x1 week. EXAM: Portable chest x-ray upright view. COMPARISON: Chest x-ray dated 08/12/2021. CT scan of the abdomen and pelvis with contrast dated 05/05/2021. FINDINGS: Lungs/pleura: Lungs are clear. There is no pneumothorax. There is no pleural effusion. Mediastinum: Again seen prominent pericardial fat-pad, which is best seen on comparison CT scan of the abdomen and pelvis. Unremarkable. Pulmonary vasculature: Unremarkable. Heart: Unremarkable. Bones/extrathoracic soft tissue: Unremarkable. IMPRESSION: Stable chest x-ray exam with no interval radiographic evidence of acute cardiopulmonary process. Dictated on workstation # [id number] Dict: 10/09/21 1020 Trans: 10/09/21 1022 [facility] [id number] Interpreted by: YARY LICEA MD Electronically signed by: Departure Communication (Admissions) Time/Spoke to Admitting Phy: 12:00 Impression Primary Impression: Dizziness Additional Impression: Nausea & vomiting Qualified Codes: R11.2 - Nausea with vomiting, unspecified Disposition: ADMITTED INPATIENT Condition: Stable Admissions Decision to Admit Reason: Admit from ER (General) Decision to Admit/Date: Oct 09, 2021 Time/Decision to Admit Time: 12:00 Departure-Patient Inst. Referrals: [facility] (PCP/Family) Primary Care Physician MARY ALCALA MD Oct 09, 2021 11:03
[2021-10-09 11:41] LABS: BILIRUBIN,URINE NEGATIVE (NEGATIVE); CLARITY,URINE CLEAR; COLOR,URINE YELLOW; GLUCOSE, URINE (UA) NEGATIVE (NEGATIVE); KETONES,URINE NEGATIVE (NEGATIVE); LEUKOCYTE ESTERASE ,URINE NEGATIVE (NEGATIVE); NITRITE,URINE NEGATIVE (NEGATIVE); PH,URINE 5.5 (5-9); PROTEIN,URINE NEGATIVE (NEGATIVE)
[2021-10-09 11:51] LABS: AMORPHOUS SEDIMENT,UR FEW AMOR URATES /LPF; BACTERIA,URINE FEW /HPF; RBC,URINE RARE /HPF; WBC,URINE RARE /HPF
[2021-10-09 12:45] VITALS: BP 159/78
--- NOTE | 2021-10-09 14:56 | Diagnostic Imaging Report ---
PROCEDURE: US carotid duplex, bilateral. TECHNIQUE: Multiple real-time grayscale images were obtained over the carotid arteries in various projections, bilaterally. Additional spectral analysis and color Doppler duplex images were also obtained. INDICATION: Syncope. FINDINGS: Velocities are normal bilaterally. No significant plaquing is seen. No velocity elevation or stenosis is identified. Both vertebral arteries show antegrade flow. There are mildly prominent lymph nodes in the neck bilaterally, largest on the right measuring 17 mm x 11 mm and largest on the left measuring 16 mm x 13 mm. IMPRESSION: 1. No evidence of a hemodynamically significant stenosis. 2. Mildly prominent bilateral neck lymph nodes. Parameters based on the consensus panel Mai-Scale and Doppler ultrasound criteria published March 2003, Radiology, Volume 229. DOPPLER (peak systolic velocity M/S Right Left CCA 1.0 1.4 ICA Proximal .82 .50 ICA Mid .95 .78 ICA Distal .66 .66 RATIO .95 .56 ECA .89 .77 VERT .49 .49 Dictated by: Dictated on workstation # [id number]
[2021-10-09] MEDS: NS IV 1000 ML 1,000 ML IV SCH ×2 (14:59→20:50)
[2021-10-09] MEDS ORDERED: LISI40TA9 PO (15:02)
[2021-10-09] MEDS ORDERED: [UNRECOGNIZED DRUG - CODE] PO (15:02)
[2021-10-09 16:07] VITALS: BP 170/92
[2021-10-09 19:30] VITALS: BP 103/56
[2021-10-09] MEDS ORDERED: ONDANSETRON 4 MG/2 ML (SDV) Z0FRAN ONE (20:25)
[2021-10-09] MEDS ORDERED: IBUPROFEN 600 MG (MOTRIN) TAB PO ONE (20:25)
[2021-10-09] MEDS ORDERED: ACETAMINOPHEN 500 MG TAB (TYLENOL) ONE (20:25)
[2021-10-09] MEDS: IBUPROFEN 600 MG (MOTRIN) TAB PO PRN (20:40)
[2021-10-09] MEDS: ACETAMINOPHEN 500 MG TAB (TYLENOL) PO PRN (20:40)
[2021-10-09] MEDS: ONDANSETRON 4 MG/2 ML (SDV) Z0FRAN IVP PRN (20:40)
[2021-10-10] VITALS (7 sets, daily range): BP systolic 120–161; BP diastolic 50–81
[2021-10-10 06:43] LABS: ALBUMIN 3.8 GM/DL (3.2-4.5); POTASSIUM 3.9 MMOL/L (3.6-5.0)
[2021-10-10 06:44] LABS: CALCIUM 8.4 MG/DL (8.5-10.1)
[2021-10-10 06:47] LABS: BILIRUBIN,TOTAL 0.2 MG/DL (0.1-1.0)
[2021-10-10 06:49] LABS: CREATININE SERUM 0.77 MG/DL (0.60-1.30)
[2021-10-10 07:30] LABS: BASOPHILS % (AUTO) 0 % (0-10); EOSINOPHILS # (AUTO) 0.2 10^3/uL (0.0-0.3); EOSINOPHILS % (AUTO) 3 % (0-10); HEMATOCRIT 35 % (35-52); HEMOGLOBIN 11.3 g/dL (11.5-16.0); LYMPHOCYTES # (AUTO) 1.8 10^3/uL (1.0-4.0); LYMPHOCYTES % (AUTO) 24 % (12-44); MEAN CORPUSCULAR HEMOGLOBIN 30 pg (25-34); MEAN CORPUSCULAR HGB CONC 33 g/dL (32-36); MEAN CORPUSCULAR VOLUME 92 fL (80-99); MEAN PLATELET VOLUME 8.1 fL (9.0-12.2); MONOCYTES # (AUTO) 0.4 10^3/uL (0.0-1.0); MONOCYTES % (AUTO) 5 % (0-12); NEUTROPHILS # (AUTO) 5.1 10^3/uL (1.8-7.8); NEUTROPHILS % (AUTO) 68 % (42-75); PLATELET COUNT 217 10^3/uL (130-400); WHITE BLOOD COUNT 7.5 10^3/uL (4.3-11.0)
[2021-10-10] MEDS: ONDANSETRON 4 MG/2 ML (SDV) Z0FRAN IVP PRN ×2 (07:54→15:15)
[2021-10-10] MEDS: ACETAMINOPHEN 500 MG TAB (TYLENOL) PO PRN (07:54)
[2021-10-10] MEDS: ENOXAPARIN 40 MG/0.4 ML (LOVENOX) SYR SC SCH (07:54)
[2021-10-10] MEDS ORDERED: PHARMACY TO DOSE SQ SCH (09:00)
[2021-10-10] MEDS: NS IV 1000 ML 1,000 ML IV SCH ×2 (09:01→17:41)
--- NOTE | 2021-10-10 10:35 | Short Stay Summary-Hospitalist ---
History of Present Illness HPI/Chief Complaint CC: Dizziness HPI: This is a 61 yr old female. She presented with dizziness for the past 2 weeks. She is also complaining of abdominal pain and she is having a lot of nausea and vomiting. I did consult Dr. Moulton. I ordered Amylase and Lipase to today's labs. Acute abdominal series x-ray was ordered. Due to the mid ep igastric pain I did go ahead and order an EKG, ECHO, and Dr. Lawrence consult. I reviewed ER workup. Source: patient Exam Limitations: no limitations Date Seen 10/10/21 Time Seen by a Provider: 11:00 Attending Physician [place] PCP Admitting Physician: Yue Sauceda MD Attending Physician: Cari Thornton DO Referring Physician Date of Admission Oct 09, 2021 at 12:02 Home Medications & Allergies Home Medications Reviewed patient Home Medication Reconciliation performed by pharmacy medication reconciliations aviation survival technician and/or nursing. Patients Allergies have been reviewed. Allergies Allergies Coded Allergies Penicillins (Verified Allergy, Unknown, 08/20/15) tuberculin, purified protein deriva (Verified Adverse Reaction, Mild, 08/20/15) Past Omtohhi-Chrslw-Eqcbqz Hx Patient Social History Marrital Status: single Employed/Student: unemployed Tobacco Use?: No Smoking Status: Never a Smoker Smokeless Tobacco Frequency: Never a User Use of E-Cig and/or Vaping dev: No Use of E-Cig and/or Vaping Julien: Never a User Substance use?: No Alcohol Use?: No Pt feels they are or have been: No Immunizations Up To Date Date of Influenza Vaccine: Feb 01, 2016 First/Initial COVID19 Vaccinat: 07/2021 Second COVID19 Vaccination James: 07/3021 Tetanus Booster (TDap): Unknown PED Vaccines UTD: Yes Date of Pneumonia Vaccine: Feb 01, 2012 Seasonal Allergies Seasonal Allergies: No Current Status status: No status: No Advance Directives: No Communicates: Verbally Primary Language: Indonesian Preferred Spoken Language: Indonesian Is interpretation needed?: No Sensory deficits: Vision impairment Implanted or Applied Medical D: None Past Medical History Surgeries: Abdominal, Appendectomy, Section, Gallbladder, 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, Oophorectomy, 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 Asthma, Sleep Apnea, COPD, Tuberculosis Currently Using CPAP: Yes Currently Using BIPAP: No High Cholesterol, Hypertension, Syncope Headaches /Migraines, Seizure Disorder, Vertigo 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, 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 Sexually Transmitted Disease: No HIV/AIDS: No UTI-Chronic Gastroesophageal Reflux, Obstructive Bowel, Diverticulosis, Ulcer Chronic Back Pain Diabetes, Non-Insulin dep Tinnitis Loss of Vision: Denies Hearing Impairment: Denies Anxiety, Suicide Attempts, Depression Blood Disorders: No Adverse Reaction/Blood Tranf: No PMHx: 08/13/21- Pt states only COPD- chart shows: HTN Hypothyroidism Schizoaffective D/o Asthma Irritable bowel syndrome Insomnia Psychosis HLD Depression Chronic gastritis Neuropathy Seizures PSurgHx: Per pt- 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, c sect x 2, cholecystomy Clinic Chart notes appendectomy Family Medical History Reviewed Nursing Family Hx Congenital heart disease G8 SISTER (HOLE IN HEART ) Neoplasm 19 MOTHER (STOMACH ) G8 BROTHER (STOMACH) Review of Systems Constitutional: see HPI, dizziness, malaise, weakness EENTM: no symptoms reported Respiratory: no symptoms reported Cardiovascular: no symptoms reported Gastrointestinal: abdominal pain, diarrhea, loss of appetite, melena, nausea, vomiting Genitourinary: no symptoms reported Musculoskeletal: no symptoms reported Skin: no symptoms reported Psychiatric/Neurological: No Symptoms Reported All Other Systems Reviewed Negative Unless Noted: Yes Physical Exam Physical Exam Vital Signs Vital Signs - First Documented 10/09/21 10/09/21 09:21 12:27 Temp 35.8 Pulse 91 Resp 16 B/P (MAP) 157/108 (124) Pulse Ox 97 O2 Delivery Room Air Capillary Refill : Less Than 3 Seconds Height, Weight, BMI Height: 5'2.00" Weight: 168lbs. 0oz. 76.713755qq; 41.56 BMI Method:Stated General Appearance: Anxious, Chronically ill, Mild Distress, Obese HEENT: PERRL/EOMI, TMs Normal, Pharynx Normal Neck: Non Tender, Supple Respiratory: Lungs Clear, Normal Breath Sounds Cardiovascular: Regular Rate, Rhythm, No Murmur Gastrointestinal: Non Tender, Soft Back: Normal Inspection, No CVA Tenderness, No Vertebral Tenderness Extremity: Normal Range of Motion, Non Tender Neurologic/Psychiatric: Alert, Oriented x3 Skin: Normal Color, Warm/Dry Results Results/Procedures Labs Laboratory Tests 10/09/21 09:28 10/10/21 05:39 10/10/21 07:21 Patient resulted labs reviewed. Short Stay Diagnosis Discharge Diagnosis-Short Stay Admission Diagnosis Dizziness Abdominal pain N/V KEVIN HTN HLP Plan: Consult Cardiology and surgery Xray abd Check amylase and lipase Final Discharge Diagnosis Dizziness Abdominal pain N/V KEVIN HTN HLP Plan: Consult Cardiology and surgery Xray abd Check amylase and lipase Conclusion Plan Plan: Consult Cardiology and surgery Xray abd Check amylase and lipase Diagnosis/Problems Diagnosis/Problems (1) Pre-syncope (2) Nausea & vomiting Status: Acute Qualifiers: Qualified Codes: R11.2 - Nausea with vomiting, unspecified (3) Uncontrolled hypertension (4) Dizziness Status: Acute CARI THORNTON DO Oct 10, 2021 10:35
[2021-10-10] MEDS: IBUPROFEN 600 MG (MOTRIN) TAB PO PRN (11:10)
--- NOTE | 2021-10-10 11:53 | Consultation-Cardiology ---
HPI-Cardiology Cardiology Consultation: Date of Consultation 10/10/21 Time Seen by a Provider: 11:40 Date of Admission 10-09-21 Attending Physician [place] Admitting Physician Admitting Physician: Brionna Harley MD Attending Physician: Cari Morales DO Consulting Physician Leonel Lawrence MD Provider requesting consult: Dr. Morales HPI: Chief Complaint: Dizziness Ms. Rivers is a 61 yr old female admitted to [facility] from the ED with dizziness and headache for approx 2 weeks. She was evaluated at [facility] urgent care and found to have high blood pressure per the pt with systolic pressure 170mmHg (she reports she had taken her morning medications). She denies any chest pain. She does report abdominal pain radiating across her upper abdomen with nausea and vomiting. She did have an episode of emesis while I was in the room with her. She denies any LE swelling. She reports she generally does not feel well. She denies any diarrhea. No c/o syncope or near syncope. No c/o LE swelling. Review of Systems-Cardiology Review of Systems Constitutional: No chills, No fever; lightheadedness, malaise Eyes: No vision change Ears/Nose/Throat: No epistaxis, No recent hearing loss Respiratory: As described under HPI Cardiovascular: As described under HPI Gastrointestinal: As described under HPI Genitourinary: No dysuria, No hematuria Musculoskeletal: no symptoms reported Skin: No rash on exposed areas, No ulcerations on exposed areas Psychiatric/Neurological: No anxiety, No depression, No seizure, No focal weakness, No syncope Hematologic: No bleeding abnormalities All Other Systems Reviewed Negative Unless Noted: Yes TJI-Cwpwji-Hciioy Hx Patient Social History Smoking Status: Never a Smoker 2nd Hand Smoke Exposure: Yes (reports COPD from 2nd hand smoke) Have you traveled recently?: No Alcohol Use?: No Pt feels they are or have been: No Immunizations Up To Date Tetanus Booster (TDap): Unknown Date of Pneumonia Vaccine: Feb 01, 2012 Date of Influenza Vaccine: Feb 01, 2016 Past Medical History PMH As described under Assessment. Family Medical History Family Medical History: She reports a h/o having a sister with congenital heart disease. Family History: Congenital heart disease G8 SISTER (HOLE IN HEART ) Neoplasm 19 MOTHER (STOMACH ) G8 BROTHER (STOMACH) Allergies and Home Medications Allergies Coded Allergies: Penicillins (Verified Allergy, Unknown, 08/20/15) tuberculin, purified protein deriva (Verified Adverse Reaction, Mild, 08/20/15) Patient Home Medication List Albuterol Sulfate (Proair Hfa) 8.5 Gm Hfa.aer.ad, 2 PUFF INH Q6H PRN for SHORTNESS OF BREATH, (Reported) Entered as Reported by: MARTHA IVAN on 08/20/151427 Last Action: Held Aripiprazole (Aripiprazole) 5 Mg Tablet, 5 MG PO DAILY, (Reported) Entered as Reported by: CAL MARTINEZ on 08/13/21956 Last Action: Converted Aspirin/Acetaminophen/Caffeine (Pain Reliever Plus Tablet) 250 Mg-250 Mg-65 Mg Tablet, 2 EA PO Q6- 8H PRN for HEADACHE, (Reported) Entered as Reported by: CAL MARTINEZ on 10/09/211501 Last Action: Converted Cetirizine HCl (Cetirizine HCl) 10 Mg Tablet, 10 MG PO DAILY, (Reported) Entered as Reported by: MARTHA IVAN on 08/20/151427 Last Action: Continued Dicyclomine HCl (Dicyclomine HCl) 20 Mg Tablet, 20 MG PO ACHS, (Reported) Entered as Reported by: CAL MARTINEZ on 08/13/21956 Last Action: Converted Lisinopril (Lisinopril) 40 Mg Tablet, 40 MG PO DAILY, (Reported) Entered as Reported by: CAL MARTINEZ on 10/09/211501 Last Action: Continued Lovastatin (Lovastatin) 40 Mg Tablet, 40 MG PO DAILY, (Reported) Entered as Reported by: MARTHA IVAN on 01/25/18926 Last Action: Converted Montelukast Sodium (Montelukast Sodium) 10 Mg Tablet, 10 MG PO DAILY, (Reported) Entered as Reported by: CAL MARTINEZ on 08/13/21956 Last Action: Continued Pantoprazole Sodium (Pantoprazole Sodium) 40 Mg Tablet.dr, 40 MG PO DAILY, (Reported) Entered as Reported by: CAL MARTINEZ on 08/13/21956 Last Action: Continued Propranolol HCl (Propranolol HCl) 40 Mg Tablet, 40 MG PO 0800,1600, (Reported) Entered as Reported by: MARTHA IVAN on 01/25/18926 Last Action: Converted Sertraline HCl (Sertraline HCl) 100 Mg Tablet, 100 MG PO DAILY, (Reported) Entered as Reported by: HUSSEIN GONZALES on 08/12/21 1800 Last Action: Continued Trazodone HCl (Trazodone HCl) 100 Mg Tablet, 200 MG PO HS, (Reported) Entered as Reported by: MARTHA IVAN on 01/25/18926 Last Action: Continued Discontinued Medications Aspirin/Acetaminophen/Caffeine (Excedrin Migraine Caplet) 1 Each Tablet, 2 EACH PO Q6-8HR PRN for Headache, (Reported) Discontinued Reason: Duplicate Order Entered as Reported by: CAL MARTINEZ on 08/13/21 09 Last Action: Discontinued Meclizine HCl (Meclizine HCl) 25 Mg Tablet, 25 MG PO Q6H PRN for DIZZINESS Discontinued Reason: No Longer Taking Prescribed by: HUSSEIN GONZALES on 08/14/21 1109 Last Action: Discontinued Physical Exam-Cardiology Physical Exam Vital Signs/I&O 10/13/21 10/13/21 10/13/21 10/13/21 04:03 05:25 06:34 06:35 Temp 36.1 Pulse 64 64 65 Resp 16 B/P (MAP) 160/84 (109) 183/79 (113) 178/79 (112) Pulse Ox 97 O2 Delivery Nasal Cannula O2 Flow Rate 2.00 10/13/21 10/13/21 10/13/21 10/13/21 07:52 08:00 08:06 10:50 Temp 36.0 Pulse 68 65 Resp 19 B/P (MAP) 186/84 (118) 163/80 (107) Pulse Ox 98 98 O2 Delivery Nasal Cannula Nasal Cannula Nasal Cannula O2 Flow Rate 2.00 2.00 1.50 10/13/21 10/13/21 10/13/21 12:28 12:56 14:21 Temp 36.3 Pulse 72 77 Resp 18 B/P (MAP) 187/84 (118) Pulse Ox 95 96 O2 Delivery Nasal Cannula Nasal Cannula O2 Flow Rate 2.00 2.00 10/13/21 00:00 Intake Total 2600 ml Output Total 875 ml Balance 1725 ml Capillary Refill : Less Than 3 Seconds Constitutional: AAO x 3, well-developed, well-nourished HEENT: PERRL, hearing is well preserved, oral hygience is good Neck: No carotid bruit; carotid pulses are 2 + bilaterally Respiratory: No accessory muscle use, No respiratory distress; chest expansion is symmetric, chest is bilaterally symmetric, lungs clear to auscultation Cardiovascular: regular rate-rhythm; No JVD; S1 and S2 Gastrointestinal: distended; No guarding; audible bowel sounds, other (emesis) Extremities: no lower extremity edema bilateral Neurologic/Psychiatric: grossly intact (moves all extremities) Skin: No rash on exposed areas, No ulcerations on exposed areas Data Review Labs Laboratory Tests 10/13/21 05:30: White Blood Count 14.1H, Red Blood Count 3.71L, Hemoglobin 11.2L, Hematocrit 34L , Mean Corpuscular Volume 90, Mean Corpuscular Hemoglobin 30, Mean Corpuscular Hemoglobin Concent 33, Red Cell Distribution Width 14.2, Platelet Count 219, Mean Platelet Volume 8.2L, Immature Granulocyte % (Auto) 1, Neutrophils (%) (Auto) 89H, Lymphocytes (%) (Auto) 7L, Monocytes (%) (Auto) 2, Eosinophils (%) (Auto) 0, Basophils (%) (Auto) 0, Neutrophils # (Auto) 12.6H, Lymphocytes # (Auto) 1.0, Monocytes # (Auto) 0.3, Eosinophils # (Auto) 0.0, Basophils # (Auto) 0.0, Immature Granulocyte # (Auto) 0.2H, Sodium Level 140, Potassium Level 3.3L, Chloride Level 101, Carbon Dioxide Level 27, Anion Gap 12, Blood Urea Nitrogen 12, Creatinine 0.76, Estimat Glomerular Filtration Rate 90, BUN/Creatinine Ratio 16, Glucose Level 171H, Calcium Level 8.6, Corrected Calcium 8.8, Magnesium Level 2.7H, Total Bilirubin 0.3, Aspartate Amino Transf (AST/SGOT) 28, Alanine Aminotransferase (ALT/SGPT) 48, Alkaline Phosphatase 47, Total Protein 7.0, Albumin 3.8 Microbiology 10/11/21 Blood Culture - Preliminary, Resulted No growth Radiology NAME: LAVELLE RIVERS [facility] REC#: [id number] PT STATUS: ADM Christin : 1960 PHYSICIAN: MARY ALCALA MD ADMIT DATE: 10/09/21 Signed Date of Exam:10/09/21 CHEST 1 VIEW, AP/PA ONLY Clinical indications: Patient with dizziness, nausea and headache x1 week. EXAM: Portable chest x-ray upright view. COMPARISON: Chest x-ray dated 08/12/2021. CT scan of the abdomen and pelvis with contrast dated 05/05/2021. FINDINGS: Lungs/pleura: Lungs are clear. There is no pneumothorax. There is no pleural effusion. Mediastinum: Again seen prominent pericardial fat-pad, which is best seen on comparison CT scan of the abdomen and pelvis. Unremarkable. Pulmonary vasculature: Unremarkable. Heart: Unremarkable. Bones/extrathoracic soft tissue: Unremarkable. IMPRESSION: Stable chest x-ray exam with no interval radiographic evidence of acute cardiopulmonary process. Dictated by: Dictated on workstation # [id number] Dict: 10/09/21 1020 Trans: 10/09/21 1717 [facility] [id number] Interpreted by: YARY LICEA MD Electronically signed by: YARY LICEA MD 10/09/211716 NAME: LAVELLE RIVERS [facility] REC#: [id number] PT STATUS: REG ER : 1960 PHYSICIAN: MARY ALCALA MD ADMIT DATE: 10/09/21/ER Signed Date of Exam:10/09/21 CT HEAD WO INDICATION: dizziness, headache TECHNIQUE: Routine non contrast-enhanced axial images were obtained from the skull base to the vertex. Auto Exposure Controls were utilized during the CT exam to meet ALARA standards for radiation dose reduction COMPARISON: 08/12/2021 FINDINGS: The ventricles and cortical sulci are stable in size and contour. There is no midline shift or mass-effect. No acute intra-axial hemorrhage is seen. There are no abnormal areas of increased or decreased density to suggest acute hemorrhage or edema. No extra-axial masses or collections are present. The bony calvarium is intact. The visualized paranasal sinuses are unremarkable. The mastoid air cells are clear. IMPRESSION: 1. No acute intracranial abnormality. No CT evidence of mass, acute infarct or intracranial hemorrhage. Dictated by: Dictated on workstation # [id number] Dict: 10/09/21 1044 Trans: 10/09/21 1145 [id number] Interpreted by: MEDARDO BOYER MD Electronically signed by: MEDARDO BOYER MD 10/09/21 1145 NAME: LAVELLE RIVERS [facility] REC#: [id number] PT STATUS: ADM Christin : 1960 PHYSICIAN: BRIONNA HARLEY MD ADMIT DATE: 10/09/21 Signed Date of Exam:10/09/21 US CAROTID STEFFANIE COMPLETE 11780 PROCEDURE: US carotid duplex, bilateral. TECHNIQUE: Multiple real-time grayscale images were obtained over the carotid arteries in various projections, bilaterally. Additional spectral analysis and color Doppler duplex images were also obtained. INDICATION: Syncope. FINDINGS: Velocities are normal bilaterally. No significant plaquing is seen. No velocity elevation or stenosis is identified. Both vertebral arteries show antegrade flow. There are mildly prominent lymph nodes in the neck bilaterally, largest on the right measuring 17 mm x 11 mm and largest on the left measuring 16 mm x 13 mm. IMPRESSION: 1. No evidence of a hemodynamically significant stenosis. 2. Mildly prominent bilateral neck lymph nodes. Parameters based on the consensus panel Mai-Scale and Doppler ultrasound criteria published March 2003, Radiology, Volume 229. DOPPLER (peak systolic velocity M/S Right Left CCA 1.0 1.4 ICA Proximal .82 .50 ICA Mid .95 .78 ICA Distal .66 .66 RATIO .95 .56 ECA .89 .77 VERT .49 .49 Dictated by: Dictated on workstation # [id number] Dict: 10/09/21 1446 Trans: 10/09/21 1558 [id number] Interpreted by: VANESSA ESQUIVEL MD Electronically signed by: VANESSA ESQUIVEL MD 10/09/21 1558 ECG Impression ECG Initial ECG Rhythm: Normal Sinus A/P-Cardiology Assessment/Admission Diagnosis Dizziness of undetermined etiology - no evidence of carotid dz per u/s of 10-09-21 - no acute intracranial abnormality on CT of the head on 10-09-21 HTN - continue home medications Nausea and vomiting - management per medical services Morbid obesity H/O cholecystectomy and appendectomy H/O hysterectomy Discussion and Recomendations Dizziness of undetermined etiology - continue tele to eval for arrhythmia BP controlled Management of CAMACHO per medical services Management of n/v and abdominal pain per medical services Continue IVF Monitor lab Replace electrolytes as indicated Further recs will be based on her hospital course We would like to thank Dr. Morales for this consult GABY CORTEZ Oct 10, 2021 11:53
[2021-10-10 11:56] LABS: AMYLASE 40 U/L (25-125)
[2021-10-10 12:05] LABS: LIPASE 10 U/L (8-78)
--- NOTE | 2021-10-10 14:18 | Diagnostic Imaging Report ---
INDICATION: Dizziness. Hypertension. Left-sided abdominal pain. COMPARISON: Chest radiograph dated 10/09/2021. FINDINGS: Supine and upright views of the abdomen show a nondistended bowel gas pattern. No abnormal air fluid levels or free intraperitoneal air is seen. No abnormal extraosseous calcifications are seen. Bony and soft tissue structures are within normal limits. No organomegaly is identified. Accompanying upright chest shows normal heart size and pulmonary vascularity. The lungs are well aerated and clear. The mediastinum is normal in appearance. IMPRESSION: 1. No bowel obstruction or free air. 2. Normal chest. No pneumonia or pulmonary edema. Dictated by: Dictated on workstation # [id number]
[2021-10-10] MEDS: RT-ALBUTEROL SULF 2.5 MG/3 ML PRE-MIX VIAL INH SCH ×2 (14:42→21:24)
[2021-10-10] MEDS: HYDROmorphone 2 MG/ML VIAL (DILAUDID) IVP PRN ×2 (15:16→19:44)
[2021-10-10] MEDS: PROMETHAZINE INJ 25 MG/ML (PHENERGAN) AMP IM PRN (17:24)
--- NOTE | 2021-10-10 19:12 | Consultation-Cardiology ---
HPI-Cardiology Cardiology Consultation: Date of Consultation 10/10/21 Time Seen by a Provider: 18:30 Date of Admission Attending Physician [place] Admitting Physician Admitting Physician: Yue Sauceda MD Attending Physician: Cari Morales DO Consulting Physician ARLENE GREENWOOD MD, MA, FACP, FACC, [facility], CCDS HPI: Chief Complaint: Dizziness Ms. Jennings is a 61 yr old female admitted to [facility] from the ED with dizziness and headache for approx 2 weeks. She was evaluated at [facility] urgent care and found to have high blood pressure per the pt with systolic pressure 170mmHg (she reports she had taken her morning medications). She denies any chest pain. She does report abdominal pain radiating across her upper abdomen with nausea and vomiting. She did have an episode of emesis while I was in the room with her. She denies any LE swelling. She reports she generally does not feel well. She denies any diarrhea. No c/o syncope or near syncope. No c/o LE swelling. Review of Systems-Cardiology Review of Systems Constitutional: No chills, No fever; lightheadedness, malaise Eyes: No vision change Ears/Nose/Throat: No epistaxis, No recent hearing loss Respiratory: As described under HPI Cardiovascular: As described under HPI Gastrointestinal: As described under HPI Genitourinary: No dysuria, No hematuria Musculoskeletal: no symptoms reported Skin: No rash on exposed areas, No ulcerations on exposed areas Psychiatric/Neurological: No anxiety, No depression, No seizure, No focal weakness, No syncope Hematologic: No bleeding abnormalities All Other Systems Reviewed Negative Unless Noted: Yes NPT-Igiykd-Oktvdt Hx Patient Social History Smoking Status: Never a Smoker 2nd Hand Smoke Exposure: Yes (reports COPD from 2nd hand smoke) Have you traveled recently?: No Alcohol Use?: No Pt feels they are or have been: No Immunizations Up To Date Tetanus Booster (TDap): Unknown Date of Pneumonia Vaccine: Feb 01, 2012 Date of Influenza Vaccine: Feb 01, 2016 Past Medical History PMH As described under Assessment. Family Medical History Family Medical History: She reports a h/o having a sister with congenital heart disease. Family History: Congenital heart disease G8 SISTER (HOLE IN HEART ) Neoplasm 19 MOTHER (STOMACH ) G8 BROTHER (STOMACH) Allergies and Home Medications Allergies Coded Allergies: Penicillins (Verified Allergy, Unknown, 08/20/15) tuberculin, purified protein deriva (Verified Adverse Reaction, Mild, 08/20/15) Patient Home Medication List Home Medication List Reviewed: Yes Albuterol Sulfate (Proair Hfa) 8.5 Gm Hfa.aer.ad, 2 PUFF INH Q6H PRN for SHORTNESS OF BREATH, (Reported) Entered as Reported by: MARTHA IVAN on 08/20/151427 Last Action: Reviewed Aripiprazole (Aripiprazole) 5 Mg Tablet, 5 MG PO DAILY, (Reported) Entered as Reported by: CAL MARTINEZ on 08/13/21956 Last Action: Reviewed Aspirin/Acetaminophen/Caffeine (Pain Reliever Plus Tablet) 250 Mg-250 Mg-65 Mg Tablet, 2 EA PO Q6- 8H PRN for HEADACHE, (Reported) Entered as Reported by: CAL MARTINEZ on 10/09/211501 Last Action: Reviewed Cetirizine HCl (Cetirizine HCl) 10 Mg Tablet, 10 MG PO DAILY, (Reported) Entered as Reported by: MARTHA IVAN on 08/20/151427 Last Action: Reviewed Dicyclomine HCl (Dicyclomine HCl) 20 Mg Tablet, 20 MG PO ACHS, (Reported) Entered as Reported by: CAL MARTINEZ on 08/13/21956 Last Action: Reviewed Lisinopril (Lisinopril) 40 Mg Tablet, 40 MG PO DAILY, (Reported) Entered as Reported by: CAL MARTINEZ on 10/09/211501 Last Action: Reviewed Lovastatin (Lovastatin) 40 Mg Tablet, 40 MG PO DAILY, (Reported) Entered as Reported by: MARTHA IVAN on 01/25/18926 Last Action: Reviewed Montelukast Sodium (Montelukast Sodium) 10 Mg Tablet, 10 MG PO DAILY, (Reported) Entered as Reported by: CAL MARTINEZ on 08/13/21956 Last Action: Reviewed Pantoprazole Sodium (Pantoprazole Sodium) 40 Mg Tablet.dr, 40 MG PO DAILY, (Reported) Entered as Reported by: CAL MARTINEZ on 08/13/21956 Last Action: Reviewed Propranolol HCl (Propranolol HCl) 40 Mg Tablet, 40 MG PO 0800,1600, (Reported) Entered as Reported by: MARTHA IVAN on 01/25/18926 Last Action: Reviewed Sertraline HCl (Sertraline HCl) 100 Mg Tablet, 100 MG PO DAILY, (Reported) Entered as Reported by: HUSSEIN GONZALES on 08/12/21 1800 Last Action: Reviewed Trazodone HCl (Trazodone HCl) 100 Mg Tablet, 200 MG PO HS, (Reported) Entered as Reported by: MARTHA IVAN on 01/25/18926 Last Action: Reviewed Discontinued Medications Aspirin/Acetaminophen/Caffeine (Excedrin Migraine Caplet) 1 Each Tablet, 2 EACH PO Q6-8HR PRN for Headache, (Reported) Discontinued Reason: Duplicate Order Entered as Reported by: CAL MARTINEZ on 08/13/21 09 Last Action: Discontinued Meclizine HCl (Meclizine HCl) 25 Mg Tablet, 25 MG PO Q6H PRN for DIZZINESS Discontinued Reason: No Longer Taking Prescribed by: HUSSEIN GONZALES on 08/14/21 1109 Last Action: Discontinued Physical Exam-Cardiology Physical Exam Vital Signs/I&O 10/10/21 10/10/21 10/10/21 10/10/21 07:59 09:01 12:00 12:50 Temp 36.0 35.4 Pulse 74 87 104 Resp 16 18 B/P (MAP) 120/65 (83) 161/75 (103) Pulse Ox 92 94 O2 Delivery Room Air Room Air Room Air 10/10/21 10/10/21 14:43 15:49 Temp 35.7 Pulse 87 Resp 24 B/P (MAP) 131/81 (98) Pulse Ox 97 92 O2 Delivery Room Air Room Air 10/10/21 00:00 Intake Total 3610 ml Output Total 200 ml Balance 3410 ml Capillary Refill : Less Than 3 Seconds Constitutional: AAO x 3, well-developed, well-nourished HEENT: PERRL, hearing is well preserved, oral hygience is good Neck: No carotid bruit; carotid pulses are 2 + bilaterally Respiratory: No accessory muscle use, No respiratory distress; chest expansion is symmetric, chest is bilaterally symmetric, lungs clear to auscultation Cardiovascular: regular rate-rhythm; No JVD; S1 and S2 Gastrointestinal: distended; No guarding; audible bowel sounds, other (emesis) Extremities: no lower extremity edema bilateral Neurologic/Psychiatric: grossly intact (moves all extremities) Skin: No rash on exposed areas, No ulcerations on exposed areas Data Review Labs Laboratory Tests 10/10/21 05:39: Sodium Level 142, Potassium Level 3.9, Chloride Level 108H, Carbon Dioxide Level 23, Anion Gap 11, Blood Urea Nitrogen 17, Creatinine 0.77, Estimat Glomerular Filtration Rate 88, BUN/Creatinine Ratio 22, Glucose Level 119H, Calcium Level 8.4L, Corrected Calcium 8.6, Total Bilirubin 0.2, Aspartate Amino Transf (AST/SGOT) 19, Alanine Aminotransferase (ALT/SGPT) 20, Alkaline Phosphatase 56, Total Protein 7.0, Albumin 3.8, Amylase Level 40, Lipase 10 10/10/21 07:21: White Blood Count 7.5, Red Blood Count 3.76L, Hemoglobin 11.3L, Hematocrit 35, Mean Corpuscular Volume 92, Mean Corpuscular Hemoglobin 30, Mean Corpuscular Hemoglobin Concent 33, Red Cell Distribution Width 14.2, Platelet Count 217, Mean Platelet Volume 8.1L, Immature Granulocyte % (Auto) 0, Neutrophils (%) (Auto) 68, Lymphocytes (%) (Auto) 24, Monocytes (%) (Auto) 5, Eosinophils (%) (Auto) 3, Basophils (%) (Auto) 0, Neutrophils # (Auto) 5.1, Lymphocytes # (Auto) 1.8, Monocytes # (Auto) 0.4, Eosinophils # (Auto) 0.2, Basophils # (Auto) 0.0, Immature Granulocyte # (Auto) 0.0 A/P-Cardiology Assessment/Admission Diagnosis Dizziness of undetermined etiology - no evidence of carotid dz per u/s of 10-09-21 - no acute intracranial abnormality on CT of the head on 10-09-21 HTN - continue home medications Nausea and vomiting - management per medical services Morbid obesity H/O cholecystectomy and appendectomy H/O hysterectomy Discussion and Recomendations Dizziness of undetermined etiology, Dr Morales managing - continue tele to eval for arrhythmia BP controlled Management of CAMACHO per Dr Morales Management of n/v and abdominal pain Dr Morales Continue IVF Monitor lab Replace electrolytes as indicated Further recs will be based on her hospital course We would like to thank Dr. Morales for this consult ARLENE GREENWOOD MD FACP [facility] CCDS Oct 10, 2021 19:12
--- NOTE | 2021-10-10 20:38 | Consultation - Surgery ---
History of Present Illness History of Present Illness Patient Consulted On(robi/time) 10/10/21 20:30 Date Seen by Provider: Oct 10, 2021 Time Seen by Provider: 16:21 History of Present Illness Consulted by Dr. Morales for nausea vomiting abdominal pain. Patient seen and evaluated. Patient is 61-year-old female who states she has been having 2 weeks of nausea vomiting abdominal pain and headache. She states that it comes and goes. It continued to worsen so she was admitted to the hospital she states. The patient states that she is hungry so she tries to eat food and then this makes it worse. The only thing that really helped her is Dilaudid. The pain in her upper abdomen she states feels like something is sitting on it and kind of moves across the top of her abdomen. She does have nausea and has had multiple episodes of emesis she states. While I am in the room she begins retching. She is already had a cholecystectomy. She is passing flatus. Her last bowel movement is yesterday. She had abdominal x-ray which did not show any features suggestive of bowel obstruction. She had a CT of the head which was normal. Her white count is not elevated. She states her doctor on outpatient started her on stomach medicine which does not seem to really help that much. Allergies and Home Medications Allergies Coded Allergies: Penicillins (Verified Allergy, Unknown, 08/20/15) tuberculin, purified protein deriva (Verified Adverse Reaction, Mild, 08/20/15) Patient Home Medication List Home Medication List Reviewed: Yes Albuterol Sulfate (Proair Hfa) 8.5 Gm Hfa.aer.ad, 2 PUFF INH Q6H PRN for SHORTNESS OF BREATH, (Reported) Entered as Reported by: MARTHA IVAN on 08/20/15 1428 Last Action: Reviewed Aripiprazole (Aripiprazole) 5 Mg Tablet, 5 MG PO DAILY, (Reported) Entered as Reported by: CAL MARTINEZ on 08/13/21 0957 Last Action: Reviewed Aspirin/Acetaminophen/Caffeine (Pain Reliever Plus Tablet) 250 Mg-250 Mg-65 Mg Tablet, 2 EA PO Q6- 8H PRN for HEADACHE, (Reported) Entered as Reported by: CAL MARTINEZ on 10/09/21 1502 Last Action: Reviewed Cetirizine HCl (Cetirizine HCl) 10 Mg Tablet, 10 MG PO DAILY, (Reported) Entered as Reported by: MARTHA IVAN on 08/20/15 1428 Last Action: Reviewed Dicyclomine HCl (Dicyclomine HCl) 20 Mg Tablet, 20 MG PO ACHS, (Reported) Entered as Reported by: CAL MARTINEZ on 08/13/21956 Last Action: Reviewed Lisinopril (Lisinopril) 40 Mg Tablet, 40 MG PO DAILY, (Reported) Entered as Reported by: CAL MARTINEZ on 10/09/21 1502 Last Action: Reviewed Lovastatin (Lovastatin) 40 Mg Tablet, 40 MG PO DAILY, (Reported) Entered as Reported by: MARTHA IVAN on 01/25/18926 Last Action: Reviewed Montelukast Sodium (Montelukast Sodium) 10 Mg Tablet, 10 MG PO DAILY, (Reported) Entered as Reported by: CAL MARTINEZ on 08/13/21956 Last Action: Reviewed Pantoprazole Sodium (Pantoprazole Sodium) 40 Mg Tablet.dr, 40 MG PO DAILY, (Reported) Entered as Reported by: CAL MARTINEZ on 08/13/21956 Last Action: Reviewed Propranolol HCl (Propranolol HCl) 40 Mg Tablet, 40 MG PO 0800,1600, (Reported) Entered as Reported by: MARTHA IVAN on 01/25/18926 Last Action: Reviewed Sertraline HCl (Sertraline HCl) 100 Mg Tablet, 100 MG PO DAILY, (Reported) Entered as Reported by: HUSSENI GONZALES on 08/12/21 1800 Last Action: Reviewed Trazodone HCl (Trazodone HCl) 100 Mg Tablet, 200 MG PO HS, (Reported) Entered as Reported by: MARTHA IVAN on 01/25/18926 Last Action: Reviewed Discontinued Medications Aspirin/Acetaminophen/Caffeine (Excedrin Migraine Caplet) 1 Each Tablet, 2 EACH PO Q6-8HR PRN for Headache, (Reported) Discontinued Reason: Duplicate Order Entered as Reported by: CAL MARTINEZ on 08/13/21 0959 Last Action: Discontinued Meclizine HCl (Meclizine HCl) 25 Mg Tablet, 25 MG PO Q6H PRN for DIZZINESS Discontinued Reason: No Longer Taking Prescribed by: HUSSEIN GONZALES on 08/14/21 1109 Last Action: Discontinued Past [id number] Hx Patient Social History Smoking Status: Never a Smoker Type Used: Cigarettes 2nd Hand Smoke Exposure: Yes (reports COPD from 2nd hand smoke) Recent Hopitalizations: No Alcohol Use?: No Have you traveled recently?: No Immunizations Up To Date Tetanus Booster (TDap): Unknown PED Vaccines UTD: Yes Date of Pneumonia Vaccine: Feb 01, 2012 Date of Influenza Vaccine: Feb 01, 2016 Seasonal Allergies Seasonal Allergies: No Surgeries History of Surgeries: Yes Surgeries: Abdominal, Appendectomy, Section, Gallbladder, 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, Oophorectomy, 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 Respiratory History of Respiratory Disorde: Yes (TESTED + FOR TB IN 1995--S/P 6 MONTHS OF TREATMENT) Respiratory Disorders: Asthma, Sleep Apnea, COPD, Tuberculosis Cardiovascular History of Cardiac Disorders: Yes Cardiac Disorders: High Cholesterol, Hypertension, Syncope Neurological History of Neurological Disord: Yes (CHILDHOOD SEIZURES) Neurological Disorders: Headaches /Migraines, Seizure Disorder, Vertigo Reproductive System Hx Reproductive Disorders: Yes (HYST/BSO) Sexually Transmitted Disease: No HIV/AIDS: No Female Reproductive Disorders: Denies [employer] History: 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, 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 Genitourinary History of Genitourinary Disor: Yes Genitourinary Disorders: UTI-Chronic Gastrointestinal History of Gastrointestinal Di: Yes Gastrointestinal Disorders: Gastroesophageal Reflux, Obstructive Bowel, Diverticulosis, Ulcer Musculoskeletal History of Musculoskeletal Dis: Yes Musculoskeletal Disorders: Chronic Back Pain Endocrine History of Endocrine Disorders: No Endocrine Disorders: Diabetes, Non-Insulin dep HEENT History of HEENT Disorders: Yes HEENT Disorders: Tinnitis Loss of Vision: Denies Hearing Impairment: Denies Cancer History of Cancer: No Psychosocial History of Psychiatric Problem: Yes Behavioral Health Disorders: Anxiety, Suicide Attempts, Depression Integumentary History of Skin or Integumenta: Yes (intertrigo) Blood Transfusions History of Blood Disorders: No Adverse Reaction to a Blood Tr: No Reviewed Nursing Assessment Reviewed/Agree w Nursing PMH: Yes Family Medical History Significant Family History: No Pertinent Family Hx Family Medial History: Congenital heart disease G8 SISTER (HOLE IN HEART ) Neoplasm 19 MOTHER (STOMACH ) G8 BROTHER (STOMACH) Review of Systems-General Constitutional: No chills, No diaphoresis EENTM: No blurred vision, No double vision Respiratory: No cough, No dyspnea on exertion Cardiovascular: No chest pain Gastrointestinal: abdominal pain, nausea, vomiting Genitourinary: No decreased output, No discharge Musculoskeletal: No back pain, No joint pain Skin: No change in color, No change in hair/nails Psychiatric/Neurological: Denies Anxiety, Denies Depressed, Denies Emotional Pr oblems All Other Systems Reviewed Negative Unless Noted: Yes (Negative excepted noted.) Physical Exam-General Problems Physical Exam Vital Signs Vital Signs - First Documented 10/09/21 10/09/21 09:21 12:27 Temp 35.8 Pulse 91 Resp 16 B/P (MAP) 157/108 (124) Pulse Ox 97 O2 Delivery Room Air Capillary Refill : Less Than 3 Seconds General Appearance: no apparent distress, obese HEENT: PERRL/EOMI, normal ENT inspection Neck: non-tender, supple Respiratory: chest non-tender, no respiratory distress, no accessory muscle use Cardiovascular: regular rate, rhythm, no JVD Gastrointestinal: soft, tenderness (Epigastric area) Back: no CVA tenderness, no vertebral tenderness Extremities: non-tender, normal inspection Neurologic/Psychiatric: alert, normal mood/affect, oriented x 3 Skin: normal color, warm/dry Lymphatic: no adenopathy Data Review Labs Laboratory Tests 10/10/21 05:39: Sodium Level 142, Potassium Level 3.9, Chloride Level 108H, Carbon Dioxide Level 23, Anion Gap 11, Blood Urea Nitrogen 17, Creatinine 0.77, Estimat Glomerular Filtration Rate 88, BUN/Creatinine Ratio 22, Glucose Level 119H, Calcium Level 8.4L, Corrected Calcium 8.6, Total Bilirubin 0.2, Aspartate Amino Transf (AST/SGOT) 19, Alanine Aminotransferase (ALT/SGPT) 20, Alkaline Phosphatase 56, Total Protein 7.0, Albumin 3.8, Amylase Level 40, Lipase 10 10/10/21 07:21: White Blood Count 7.5, Red Blood Count 3.76L, Hemoglobin 11.3L, Hematocrit 35, Mean Corpuscular Volume 92, Mean Corpuscular Hemoglobin 30, Mean Corpuscular Hemoglobin Concent 33, Red Cell Distribution Width 14.2, Platelet Count 217, Mean Platelet Volume 8.1L, Immature Granulocyte % (Auto) 0, Neutrophils (%) (Auto) 68, Lymphocytes (%) (Auto) 24, Monocytes (%) (Auto) 5, Eosinophils (%) (Auto) 3, Basophils (%) (Auto) 0, Neutrophils # (Auto) 5.1, Lymphocytes # (Auto) 1.8, Monocytes # (Auto) 0.4, Eosinophils # (Auto) 0.2, Basophils # (Auto) 0.0, Immature Granulocyte # (Auto) 0.0 Assessment/Plan Assessment/Plan Assessment/Plan Epigastric abdominal pain nausea vomiting Headache History of cholecystectomy Patient with nausea and vomiting. She just ate and while I am in the room is retching. We will make her n.p.o. IV fluids. Her abdominal x-ray did not have any suggestion of bowel obstruction. She has having bowel function so I do not think she does have an obstruction. If continues to have pain would suggest CT scan of the abdomen pelvis with oral contrast. Supportive measures DANELLE SHERWOOD DO Oct 10, 2021 20:38
[2021-10-10] MEDS: SUCRALFATE 1 GM (CARAFATE) TAB PO SCH (20:51)
[2021-10-11] VITALS (9 sets, daily range): BP systolic 138–194; BP diastolic 78–104
[2021-10-11] MEDS: NS IV 1000 ML 1,000 ML IV SCH ×3 (00:36→21:46)
[2021-10-11] MEDS: IBUPROFEN 600 MG (MOTRIN) TAB PO PRN ×2 (00:56→21:44)
[2021-10-11] MEDS: HYDROmorphone 2 MG/ML VIAL (DILAUDID) IVP PRN ×5 (04:53→16:16)
[2021-10-11] MEDS: SUCRALFATE 1 GM (CARAFATE) TAB PO SCH ×4 (05:36→21:36)
--- NOTE | 2021-10-11 06:14 | Progress Note - Hospitalist ---
Subjective HPI/CC On Admission Date Seen by Provider: Oct 11, 2021 Time Seen by Provider: 11:00 CC: Dizziness HPI: This is a 61 yr old female. She presented with dizziness for the past 2 weeks. She is also complaining of abdominal pain and she is having a lot of nausea and vomiting. I did consult Dr. Moulton. I ordered Amylase and Lipase to today's labs. Acute abdominal series x-ray was ordered. Due to the mid epigastri c pain I did go ahead and order an EKG, ECHO, and Dr. Lawrence consult. I reviewed ER workup. Subjective/Events-last exam Patient about the same Vomiting and midepigastric pain CT abdomen normal Dr Moulton and I conferred Dilaudid given small dosing Up to the bathroom she reports PT ordered Reviewed Cardiology note Tely on Mysterious source of her issues Review of Systems General: Fatigue, Malaise Gastrointestinal: Nausea, Vomiting, Abdominal Pain Focused Exam Lactate Level 10/11/21 17:50: Lactic Acid Level 0.97 Lactic Acid Level Laboratory Tests Test 10/11/21 17:50 Lactic Acid Level 0.97 MMOL/L (0.50-2.00) Objective Exam Vital Signs Vital Signs Date Time Temp Pulse Resp B/P (MAP) Pulse Ox O2 Delivery O2 Flow Rate FiO2 10/11/21 18:42 100 Vapotherm 40.00 40 10/11/21 18:30 37.3 10/11/21 17:00 90 12 155/88 (110) Capillary Refill : Less Than 3 Seconds General Appearance: WD/WN, Anxious, Chronically ill, Mild Distress Respiratory: No Accessory Muscle Use, No Respiratory Distress, Decreased Breath Sounds Cardiovascular: Regular Rate, Rhythm Gastrointestinal: Normal Bowel Sounds, Soft, Tenderness (mild mid-epigastric) Neurologic/Psychiatric: Alert, Oriented x3, No Motor/Sensory Deficits, Normal Mood/Affect Results/Procedures Lab Laboratory Tests 10/11/21 06:41 10/11/21 17:50 Patient resulted labs reviewed. Assessment/Plan Assessment and Plan Assess & Plan/Chief Complaint Assessment: Dizziness Headache N/V Mid-epigastric abdominal pain Obesity Depression Atypical chest pain consulted Cardiology Plan: Consult Cardiology and surgery Xray abd Check amylase and lipase 10/11/21: CT reviewed Appreciate Surgery and Cardiology Diagnosis/Problems Diagnosis/Problems (1) Pre-syncope (2) Nausea & vomiting Status: Acute Qualifiers: Vomiting type: unspecified Qualified Codes: R11.2 - Nausea with vomiting, unspecified (3) Uncontrolled hypertension (4) Dizziness Status: Acute MANI THORNTON DO Oct 11, 2021 06:14
[2021-10-11 07:01] LABS: BASOPHILS % (AUTO) 0 % (0-10); EOSINOPHILS # (AUTO) 0.1 10^3/uL (0.0-0.3); EOSINOPHILS % (AUTO) 1 % (0-10); HEMATOCRIT 31 % (35-52); LYMPHOCYTES % (AUTO) 24 % (12-44); MEAN CORPUSCULAR HEMOGLOBIN 30 pg (25-34); MEAN CORPUSCULAR HGB CONC 33 g/dL (32-36); MEAN CORPUSCULAR VOLUME 93 fL (80-99); MONOCYTES # (AUTO) 0.4 10^3/uL (0.0-1.0); MONOCYTES % (AUTO) 5 % (0-12); NEUTROPHILS # (AUTO) 5.8 10^3/uL (1.8-7.8); NEUTROPHILS % (AUTO) 69 % (42-75); PLATELET COUNT 207 10^3/uL (130-400); WHITE BLOOD COUNT 8.4 10^3/uL (4.3-11.0)
[2021-10-11 07:14] LABS: ALBUMIN 3.3 GM/DL (3.2-4.5)
[2021-10-11 07:15] LABS: POTASSIUM 3.5 MMOL/L (3.6-5.0)
[2021-10-11 07:16] LABS: CALCIUM 8.3 MG/DL (8.5-10.1)
[2021-10-11 07:19] LABS: BILIRUBIN,TOTAL 0.2 MG/DL (0.1-1.0)
[2021-10-11 07:21] LABS: CREATININE SERUM 0.67 MG/DL (0.60-1.30)
[2021-10-11] MEDS: PROMETHAZINE INJ 25 MG/ML (PHENERGAN) AMP IM PRN ×2 (08:58→16:16)
[2021-10-11] MEDS ORDERED: PANTOPRAZOLE 40 MG (PROTONIX) VIAL IV SCH (09:00)
[2021-10-11] MEDS: ENOXAPARIN 40 MG/0.4 ML (LOVENOX) SYR SC SCH (09:13)
[2021-10-11] MEDS: RT-ALBUTEROL SULF 2.5 MG/3 ML PRE-MIX VIAL INH SCH ×3 (09:58→18:41)
[2021-10-11] MEDS ORDERED: HOLD METFORMIN - RECEIVED CONTRAST 20 ML VIAL IV SCH (10:45)
[2021-10-11] MEDS ORDERED: NS 100 ML (IVPB) BAG IV ONE (10:45)
[2021-10-11] MEDS ORDERED: IOHEXOL 350 MG/ML 100 ML (OMNIPAQUE 350) VIAL IV ONE (10:45)
[2021-10-11] MEDS ORDERED: CATHETER FLUSH 10 ML SYR IV PRN (10:45)
[2021-10-11] MEDS: ONDANSETRON 4 MG/2 ML (SDV) Z0FRAN IVP PRN ×3 (11:16→23:37)
--- NOTE | 2021-10-11 11:23 | Diagnostic Imaging Report ---
PROCEDURE: CT abdomen with contrast only. TECHNIQUE: Multiple contiguous axial images were obtained through the abdomen after the administration of intravenous contrast. Auto Exposure Controls were utilized during the CT exam to meet ALARA standards for radiation dose reduction. INDICATION: 61-year-old female, mid abdominal pain, nausea. CORRELATION STUDY: CT abdomen pelvis 05/05/2021 FINDINGS: Trace pleural effusions layering dependently. No basilar infiltrate. Heart size normal. Liver is borderline enlarged. No focal lesion. Gallbladder absent. Post cholecystectomy prominence of the biliary tree appearing to be within normal limits. Spleen, pancreas and adrenal glands are unremarkable. Small splenule in the hilum. The abdominal aorta unremarkable. Kidneys with normal enhancement. The visualized portions of the gastrointestinal tract in the abdomen demonstrates no obstruction or inflammation. Mild stool within the visualized segments of the colon. No upper abdominal ascites. Subcutaneous gas in the right abdominal wall may reflect a previous subcutaneous injection. Visualized osseous structures unremarkable for acute findings. Pelvis is not imaged on this study. IMPRESSION: 1. Negative for acute abnormality about the abdomen. 2. Borderline hepatomegaly. Dictated by: Dictated on workstation # [id number]
[2021-10-11] MEDS: POTASSIUM CL 10MEQ/50ML IVPB 50 ML IV SCH ×4 (13:02→16:23)
[2021-10-11] MEDS ORDERED: meTOprolol SUCCINATE 100 MG (TOPROL XL) TAB PO ONE (13:45)
--- NOTE | 2021-10-11 14:15 | Progress Note - Surgery ---
Subjective Date Seen by a Provider: Oct 11, 2021 Time Seen by a Provider: 07:50 Subjective/Events-last exam Patient still with nausea and vomiting. Still with epigastric abdominal pain. No new complaints. She states the pain is severe. Nothing making it better or worse except the Dilaudid made it better. Denies fever sweats chills shortness of breath or chest pain at this time. Objective Exam Vital Signs Date Time Temp Pulse Resp B/P (MAP) Pulse Ox O2 Delivery O2 Flow Rate FiO2 10/11/21 13:00 78 10/11/21 11:12 36.8 93 20 194/91 (125) 95 Room Air 10/11/21 09:05 92 Room Air 10/11/21 07:29 36.4 81 20 183/91 (121) 92 Room Air 10/11/21 07:00 73 10/11/21 04:47 36.4 85 18 138/78 (98) 95 Room Air 10/11/21 01:00 94 10/10/21 23:26 36.6 94 18 134/70 (91) Room Air 10/10/21 21:24 98 Room Air 10/10/21 21:00 Room Air 10/10/21 20:28 36.5 88 18 132/78 (96) 93 Room Air 10/10/21 19:00 110 10/10/21 15:49 35.7 87 24 131/81 (98) 92 Room Air 10/10/21 14:43 97 Room Air I & O 10/11/21 07:00 Intake Total 1240 ml Output Total 700 ml Balance 540 ml Capillary Refill : Less Than 3 Seconds General Appearance: Anxious, Chronically ill, Obese HEENT: PERRL/EOMI, TMs Normal, Pharynx Normal Neck: Non Tender, Supple Respiratory: Chest Non Tender, No Accessory Muscle Use, No Respiratory Distress Cardiovascular: Regular Rate, Rhythm, No JVD Gastrointestinal: soft, tenderness (Epigastric area) Extremity: Normal Range of Motion, Non Tender Neurologic/Psychiatric: Alert, Oriented x3 Skin: Normal Color, Warm/Dry Lymphatic: No Adenopathy Results Lab Laboratory Tests 10/11/21 06:41: White Blood Count 8.4, Red Blood Count 3.32L, Hemoglobin 10.0L, Hematocrit 31L, Mean Corpuscular Volume 93, Mean Corpuscular Hemoglobin 30, Mean Corpuscular Hemoglobin Concent 33, Red Cell Distribution Width 14.3, Platelet Count 207, Mean Platelet Volume 8.0L, Immature Granulocyte % (Auto) 1, Neutrophils (%) (Auto) 69, Lymphocytes (%) (Auto) 24, Monocytes (%) (Auto) 5, Eosinophils (%) (Auto) 1, Basophils (%) (Auto) 0, Neutrophils # (Auto) 5.8, Lymphocytes # (Auto) 2.0, Monocytes # (Auto) 0.4, Eosinophils # (Auto) 0.1, Basophils # (Auto) 0.0, Immature Granulocyte # (Auto) 0.0, Sodium Level 142, Potassium Level 3.5L, Chloride Level 109H, Carbon Dioxide Level 25, Anion Gap 8, Blood Urea Nitrogen 11, Creatinine 0.67, Estimat Glomerular Filtration Rate 100, BUN/Creatinine Ratio 16, Glucose Level 109H, Calcium Level 8.3L, Corrected Calcium 8.9, Total Bilirubin 0.2, Aspartate Amino Transf (AST/SGOT) 14, Alanine Aminotransferase (ALT/SGPT) 21, Alkaline Phosphatase 44, Total Protein 6.0L, Albumin 3.3 Assessment/Plan Assessment/Plan Assessment/Plan Epigastric abdominal pain nausea vomiting Headache History of cholecystectomy Patient pain in the epigastric region continued. We will get a CT scan of the abdomen to further evaluate. DANELLE SHERWOOD DO Oct 11, 2021 14:15
--- NOTE | 2021-10-11 15:08 | Progress Note - Cardiology ---
Cardiology SOAP Progress Note Subjective: Headache and abdominal discomfort No cp or palp or syncope No shortness of breath at rest Gen malaise present No focal weakness Objective: I&O/Vital Signs 10/11/21 10/11/21 10/11/21 10/11/21 04:47 07:00 07:29 09:05 Temp 36.4 36.4 Pulse 85 73 81 Resp 18 20 B/P (MAP) 138/78 (98) 183/91 (121) Pulse Ox 95 92 92 O2 Delivery Room Air Room Air Room Air 10/11/21 10/11/21 11:12 13:00 Temp 36.8 Pulse 93 78 Resp 20 B/P (MAP) 194/91 (125) Pulse Ox 95 O2 Delivery Room Air 10/11/21 00:00 Intake Total 240 ml Output Total 700 ml Balance -460 ml Weight (Pounds): 168 Weight (Ounces): 0 Weight (Calculated Kilograms): [id number] Constitutional: AAO x 3, well-developed, well-nourished Respiratory: No accessory muscle use, No respiratory distress; chest expansion is symmetric, chest is bilaterally symmetric, lungs clear to auscultation Cardiovascular: regular rate-rhythm; No JVD; S1 and S2 Gastrointestional: distended; No guarding; audible bowel sounds, other (emesis) Extremities: no lower extremity edema bilateral Neurologic/Psychiatric: grossly intact (moves all extremities) Skin: No rash on exposed areas, No ulcerations on exposed areas Results/Procedures: Labs Laboratory Tests 10/11/21 06:41: White Blood Count 8.4, Red Blood Count 3.32L, Hemoglobin 10.0L, Hematocrit 31L, Mean Corpuscular Volume 93, Mean Corpuscular Hemoglobin 30, Mean Corpuscular Hemoglobin Concent 33, Red Cell Distribution Width 14.3, Platelet Count 207, Mean Platelet Volume 8.0L, Immature Granulocyte % (Auto) 1, Neutrophils (%) (Auto) 69, Lymphocytes (%) (Auto) 24, Monocytes (%) (Auto) 5, Eosinophils (%) (Auto) 1, Basophils (%) (Auto) 0, Neutrophils # (Auto) 5.8, Lymphocytes # (Auto) 2.0, Monocytes # (Auto) 0.4, Eosinophils # (Auto) 0.1, Basophils # (Auto) 0.0, Immature Granulocyte # (Auto) 0.0, Sodium Level 142, Potassium Level 3.5L, Chloride Level 109H, Carbon Dioxide Level 25, Anion Gap 8, Blood Urea Nitrogen 11, Creatinine 0.67, Estimat Glomerular Filtration Rate 100, BUN/Creatinine Ratio 16, Glucose Level 109H, Calcium Level 8.3L, Corrected Calcium 8.9, Total Bilirubin 0.2, Aspartate Amino Transf (AST/SGOT) 14, Alanine Aminotransferase (ALT/SGPT) 21, Alkaline Phosphatase 44, Total Protein 6.0L, Albumin 3.3 Laboratory Tests 10/10/21 05:39 10/10/21 07:21 10/11/21 06:41 A/P: Assessment: Dizziness of undetermined etiology - no evidence of carotid dz per u/s of 10-09-21 - no acute intracranial abnormality on CT of the head on 10-09-21 Headache and abdominal discomfort, managed by Dr Morales HTN - continue home medications Nausea and vomiting - management per medical services Morbid obesity H/O cholecystectomy and appendectomy H/O hysterectomy Plan: BP uncontrolle - initiate beta-ave Management of CAMACHO and abd discomfort per Dr Morales Monitor lab Replace electrolytes as indicated ARLENE GREENWOOD MD FACP FAC CCDS Oct 11, 2021 15:08
[2021-10-11 17:58] LABS: BASOPHILS % (AUTO) 0 % (0-10); EOSINOPHILS # (AUTO) 0.1 10^3/uL (0.0-0.3); EOSINOPHILS % (AUTO) 1 % (0-10); HEMATOCRIT 35 % (35-52); HEMOGLOBIN 11.2 g/dL (11.5-16.0); LYMPHOCYTES % (AUTO) 15 % (12-44); MEAN CORPUSCULAR HEMOGLOBIN 30 pg (25-34); MEAN CORPUSCULAR HGB CONC 32 g/dL (32-36); MEAN CORPUSCULAR VOLUME 94 fL (80-99); MONOCYTES # (AUTO) 0.6 10^3/uL (0.0-1.0); MONOCYTES % (AUTO) 4 % (0-12); NEUTROPHILS # (AUTO) 10.3 10^3/uL (1.8-7.8); NEUTROPHILS % (AUTO) 78 % (42-75); PLATELET COUNT 237 10^3/uL (130-400); WHITE BLOOD COUNT 13.2 10^3/uL (4.3-11.0)
[2021-10-11 18:09] LABS: ABG OXYGEN SATURATION 93 % (94-100); ABG PCO2 70 MMHG (35-45); ABG PH 7.22 (7.37-7.43); ABG PO2 85 MMHG (79-93); ALLENS TEST YES-POS
[2021-10-11 18:10] LABS: INSPIRED O2 4.5; PATIENT TEMP 37.2; VENTILATOR NO
[2021-10-11 18:13] LABS: POTASSIUM 4.4 MMOL/L (3.6-5.0)
--- NOTE | 2021-10-11 18:13 | Diagnostic Imaging Report ---
EXAM: Chest 1 view, AP/PA only INDICATION: Hypoxia. COMPARISON: 10/09/2021. FINDINGS: Low lung volumes accentuate the heart size and central pulmonary vascularity which are likely normal. Mild atelectasis or infiltrate in the lung bases. No pneumothorax. No acute osseous finding. IMPRESSION: Low lung volumes with mild atelectasis or infiltrate in the lung bases, greater on the left. Dictated by: Dictated on workstation # [id number]
[2021-10-11 18:14] LABS: CALCIUM 8.4 MG/DL (8.5-10.1)
[2021-10-11 18:15] LABS: TOTAL PROTEIN 7.3 GM/DL (6.4-8.2)
[2021-10-11 18:17] LABS: BILIRUBIN,TOTAL 0.2 MG/DL (0.1-1.0)
[2021-10-11 18:19] LABS: CREATININE SERUM 0.72 MG/DL (0.60-1.30)
[2021-10-11] MEDS ORDERED: NALOXONE 0.4 MG/ML 1 ML (NARCAN) VIAL IV ONE (18:30)
--- NOTE | 2021-10-11 18:44 | Code Blue Response-Hospitalist ---
General Date Seen/Responded 10/11/21 Source: patient, RN/, old records History of Present Illness Time seen by provider: 18:20 Initial Comments Called by Caron BROWNLEE on 4th floor with change of status. VSS but started becoming hypoxic. Stat labs and CXR ordered and spoke to Lita BROWNLEE and it appeared she had aspirated. Moved to ICU.Conferred with Dr Moulton since CT was normal.CXR reviewed. ATX. bilateral. 3-5 compressoions due to unresponsive episode. DR Cardenas arrived and I updated him. No intubation necessary. Patient placed on Vapotherm with good results. Abx and steroids initiated. Updated patient and she is O x 3. VSS. Timing/Duration: just prior to arrival Severity: severe Context: midepigastric abdominal pain Prior Episodes/Possible Cause: frequent episodes Modifying Factors: Improves With Lying Down Allergies and Home Medications Allergies Coded Allergies: Penicillins (Verified Allergy, Unknown, 08/20/15) tuberculin, purified protein deriva (Verified Adverse Reaction, Mild, 08/20/15) Home Medications Albuterol Sulfate 8.5 Gm Hfa.aer.ad, 2 PUFF INH Q6H PRN for SHORTNESS OF BREATH, (Reported) Aripiprazole 5 Mg Tablet, 5 MG PO DAILY, (Reported) Aspirin/Acetaminophen/Caffeine 250 Mg-250 Mg-65 Mg Tablet, 2 EA PO Q6- 8H PRN for HEADACHE, (Reported) Cetirizine HCl 10 Mg Tablet, 10 MG PO DAILY, (Reported) Dicyclomine HCl 20 Mg Tablet, 20 MG PO ACHS, (Reported) Lisinopril 40 Mg Tablet, 40 MG PO DAILY, (Reported) Lovastatin 40 Mg Tablet, 40 MG PO DAILY, (Reported) Montelukast Sodium 10 Mg Tablet, 10 MG PO DAILY, (Reported) Pantoprazole Sodium 40 Mg Tablet.dr, 40 MG PO DAILY, (Reported) Propranolol HCl 40 Mg Tablet, 40 MG PO 0800,1600, (Reported) Sertraline HCl 100 Mg Tablet, 100 MG PO DAILY, (Reported) Trazodone HCl 100 Mg Tablet, 200 MG PO HS, (Reported) TAKES 2 (100MG) TABS Physical Exam Vital Signs Vital Signs - First Documented 10/09/21 10/09/21 10/11/21 09:21 12:27 17:00 Temp 35.8 Pulse 91 Resp 16 B/P (MAP) 157/108 (124) Pulse Ox 97 O2 Delivery Room Air O2 Flow Rate 4.50 Capillary Refill : Less Than 3 Seconds Height, Weight, BMI Height: 5'2.00" Weight: 168lbs. 0oz. 76.386145yn; 41.56 BMI Method:Stated General Appearance: severe distress, obese Respiratory: respiratory distress, accessory muscle use, wheezing Neurologic/Psychiatric: disoriented x 3 Progress/Results/Core Measures Results/Orders Lab Results Laboratory Tests Test 10/09/21 09:26 10/09/21 09:28 10/09/21 10:05 10/09/21 11:14 Range/Units Glucometer 117 H 70-110 MG/DL White Blood Count 8.6 4.3-11.0 10^3/uL Red Blood Count 3.93 3.80-5.11 10^6/uL Hemoglobin 11.9 11.5-16.0 g/dL Hematocrit 36 35-52 % Mean Corpuscular Volume 90 80-99 fL Mean Corpuscular Hemoglobin 30 25-34 pg Mean Corpuscular Hemoglobin Concent 34 32-36 g/dL Red Cell Distribution Width 14.1 10.0-14.5 % Platelet Count 261 130-400 10^3/uL Mean Platelet Volume 8.6 L 9.0-12.2 fL Immature Granulocyte % (Auto) 1 % Neutrophils (%) (Auto) 62 42-75 % Lymphocytes (%) (Auto) 29 12-44 % Monocytes (%) (Auto) 6 0-12 % Eosinophils (%) (Auto) 3 0-10 % Basophils (%) (Auto) 0 0-10 % Neutrophils # (Auto) 5.3 1.8-7.8 10^3/uL Lymphocytes # (Auto) 2.5 1.0-4.0 10^3/uL Monocytes # (Auto) 0.5 0.0-1.0 10^3/uL Eosinophils # (Auto) 0.2 0.0-0.3 10^3/uL Basophils # (Auto) 0.0 0.0-0.1 10^3/uL Immature Granulocyte # (Auto) 0.0 0.0-0.1 10^3/uL Sodium Level 143 135-145 MMOL/L Potassium Level 4.2 3.6-5.0 MMOL/L Chloride Level 108 H 98-107 MMOL/L Carbon Dioxide Level 23 21-32 MMOL/L Anion Gap 12 5-14 MMOL/L Blood Urea Nitrogen 20 H 7-18 MG/DL Creatinine 0.78 0.60-1.30 MG/DL Estimat Glomerular Filtration Rate 87 BUN/Creatinine Ratio 26 Glucose Level 118 H 70-105 MG/DL Calcium Level 8.8 8.5-10.1 MG/DL Corrected Calcium 8.9 8.5-10.1 MG/DL Magnesium Level 1.8 1.6-2.4 MG/DL Total Bilirubin 0.2 0.1-1.0 MG/DL Aspartate Amino Transf (AST/SGOT) 14 5-34 U/L Alanine Aminotransferase (ALT/SGPT) 20 0-55 U/L Alkaline Phosphatase 51 40-136 U/L Troponin I < 0.028 <0.028 NG/ML C-Reactive Protein High Sensitivity 1.51 H 0.00-0.50 MG/DL Total Protein 7.3 6.4-8.2 GM/DL Albumin 3.9 3.2-4.5 GM/DL TSH [facility] Testing 2.47 0.35-4.94 UIU/ML D-Dimer 0.27 0.00-0.49 UG/ML Urine Color YELLOW Urine Clarity CLEAR Urine pH 5.5 5-9 Urine Specific [place] >=1.030 1.016-1.022 Urine Protein NEGATIVE NEGATIVE Urine Glucose (UA) NEGATIVE NEGATIVE Urine Ketones NEGATIVE NEGATIVE Urine Nitrite NEGATIVE NEGATIVE Urine Bilirubin NEGATIVE NEGATIVE Urine Urobilinogen 0.2 < = 1.0 MG/DL Urine Leukocyte Esterase NEGATIVE NEGATIVE Urine RBC (Auto) NEGATIVE NEGATIVE Urine RBC RARE /HPF Urine WBC RARE /HPF Urine Squamous Epithelial Cells 10-25 H /HPF Urine Crystals PRESENT H /LPF Urine Amorphous Sediment FEW RAMIRO URATES H /LPF Urine Bacteria FEW H /HPF Urine Casts NONE /LPF Urine Mucus NEGATIVE /LPF Urine Culture Indicated NO Test 10/10/21 05:39 10/10/21 07:21 10/11/21 06:41 10/11/21 17:40 Range/Units Sodium Level 142 142 135-145 MMOL/L Potassium Level 3.9 3.5 L 3.6-5.0 MMOL/L Chloride Level 108 H 109 H 98-107 MMOL/L Carbon Dioxide Level 23 25 21-32 MMOL/L Anion Gap 11 8 5-14 MMOL/L Blood Urea Nitrogen 17 11 7-18 MG/DL Creatinine 0.77 0.67 0.60-1.30 MG/DL Estimat Glomerular Filtration Rate 88 100 BUN/Creatinine Ratio 22 16 Glucose Level 119 H 109 H 70-105 MG/DL Calcium Level 8.4 L 8.3 L 8.5-10.1 MG/DL Corrected Calcium 8.6 8.9 8.5-10.1 MG/DL Total Bilirubin 0.2 0.2 0.1-1.0 MG/DL Aspartate Amino Transf (AST/SGOT) 19 14 5-34 U/L Alanine Aminotransferase (ALT/SGPT) 20 21 0-55 U/L Alkaline Phosphatase 56 44 40-136 U/L Total Protein 7.0 6.0 L 6.4-8.2 GM/DL Albumin 3.8 3.3 3.2-4.5 GM/DL Amylase Level 40 25-125 U/L Lipase 10 8-78 U/L White Blood Count 7.5 8.4 4.3-11.0 10^3/uL Red Blood Count 3.76 L 3.32 L 3.80-5.11 10^6/uL Hemoglobin 11.3 L 10.0 L 11.5-16.0 g/dL Hematocrit 35 31 L 35-52 % Mean Corpuscular Volume 92 93 80-99 fL Mean Corpuscular Hemoglobin 30 30 25-34 pg Mean Corpuscular Hemoglobin Concent 33 33 32-36 g/dL Red Cell Distribution Width 14.2 14.3 10.0-14.5 % Platelet Count 217 207 130-400 10^3/uL Mean Platelet Volume 8.1 L 8.0 L 9.0-12.2 fL Immature Granulocyte % (Auto) 0 1 % Neutrophils (%) (Auto) 68 69 42-75 % Lymphocytes (%) (Auto) 24 24 12-44 % Monocytes (%) (Auto) 5 5 0-12 % Eosinophils (%) (Auto) 3 1 0-10 % Basophils (%) (Auto) 0 0 0-10 % Neutrophils # (Auto) 5.1 5.8 1.8-7.8 10^3/uL Lymphocytes # (Auto) 1.8 2.0 1.0-4.0 10^3/uL Monocytes # (Auto) 0.4 0.4 0.0-1.0 10^3/uL Eosinophils # (Auto) 0.2 0.1 0.0-0.3 10^3/uL Basophils # (Auto) 0.0 0.0 0.0-0.1 10^3/uL Immature Granulocyte # (Auto) 0.0 0.0 0.0-0.1 10^3/uL Blood Gas Puncture Site LEFT RADIAL Blood Gas Patient Temperature 37.2 Arterial Blood pH 7.22 *L 7.37-7.43 Arterial Blood Partial Pressure CO2 70 H 35-45 MMHG Arterial Blood Partial Pressure O2 85 79-93 MMHG Arterial Blood HCO3 28 H 23-27 MMOL/L Arterial Blood Total CO2 30.0 21.0-31.0 MMOL/L Arterial Blood Oxygen Saturation 93 L 94-100 % Arterial Blood Base Excess 1.0 -2.5-2.5 MMOL/L Steve Test YES-POS Blood Gas Ventilator Setting NO Blood Gas Inspired Oxygen 4.5 Test 10/11/21 17:50 Range/Units White Blood Count 13.2 H 4.3-11.0 10^3/uL Red Blood Count 3.72 L 3.80-5.11 10^6/uL Hemoglobin 11.2 L 11.5-16.0 g/dL Hematocrit 35 35-52 % Mean Corpuscular Volume 94 80-99 fL Mean Corpuscular Hemoglobin 30 25-34 pg Mean Corpuscular Hemoglobin Concent 32 32-36 g/dL Red Cell Distribution Width 14.5 10.0-14.5 % Platelet Count 237 130-400 10^3/uL Mean Platelet Volume 8.0 L 9.0-12.2 fL Immature Granulocyte % (Auto) 2 % Neutrophils (%) (Auto) 78 H 42-75 % Lymphocytes (%) (Auto) 15 12-44 % Monocytes (%) (Auto) 4 0-12 % Eosinophils (%) (Auto) 1 0-10 % Basophils (%) (Auto) 0 0-10 % Neutrophils # (Auto) 10.3 H 1.8-7.8 10^3/uL Lymphocytes # (Auto) 2.0 1.0-4.0 10^3/uL Monocytes # (Auto) 0.6 0.0-1.0 10^3/uL Eosinophils # (Auto) 0.1 0.0-0.3 10^3/uL Basophils # (Auto) 0.0 0.0-0.1 10^3/uL Immature Granulocyte # (Auto) 0.2 H 0.0-0.1 10^3/uL D-Dimer < 0.27 0.00-0.49 UG/ML Sodium Level 139 135-145 MMOL/L Potassium Level 4.4 3.6-5.0 MMOL/L Chloride Level 106 98-107 MMOL/L Carbon Dioxide Level 23 21-32 MMOL/L Anion Gap 10 5-14 MMOL/L Blood Urea Nitrogen 8 7-18 MG/DL Creatinine 0.72 0.60-1.30 MG/DL Estimat Glomerular Filtration Rate 96 BUN/Creatinine Ratio 11 Glucose Level 128 H 70-105 MG/DL Lactic Acid Level 0.97 0.50-2.00 MMOL/L Calcium Level 8.4 L 8.5-10.1 MG/DL Corrected Calcium 8.4 L 8.5-10.1 MG/DL Total Bilirubin 0.2 0.1-1.0 MG/DL Aspartate Amino Transf (AST/SGOT) 21 5-34 U/L Alanine Aminotransferase (ALT/SGPT) 27 0-55 U/L Alkaline Phosphatase 53 40-136 U/L Total Protein 7.3 6.4-8.2 GM/DL Albumin 4.0 3.2-4.5 GM/DL My Orders Orders - MANI THORNTON DO Consult Cardiology (10/10/21 11:32) Consult General Surgery (10/10/21 11:32) Acute Abd Series (10/10/21 11:32) Amylase (10/10/21 11:32) Lipase (10/10/21 11:32) Hydromorphone Injection (Dilaudid Inject (10/10/21 11:45) Ekg Tracing (10/10/21 11:32) Echo W Doppler/Color Flow (10/10/21 11:32) Albuterol Pre-Mix Nebs (Rt) (Proventil (10/10/21 11:45) Svn Small Volume Nebulizer (10/10/21 11:36) Promethazine Injection (Phenergan Injec (10/10/21 11:45) Midline Cap Change Q7D (10/17/21 15:00) Midline Dressing Change Q7D (10/17/21 15:00) Cbc With Automated Diff (10/11/21 06:13) Comprehensive Metabolic Panel (10/11/21 06:13) Potassium Cl 10meq/50ml Ivpb (Kcl 10 Meq (10/11/21 12:15) Physical Therapy Order (10/11/21 12:13) Arterial Blood Gas (10/11/21 17:30) Cbc With Automated Diff (10/11/21 17:35) Comprehensive Metabolic Panel (10/11/21 17:35) Lactic Acid Analyzer (10/11/21 17:35) Procalcitonin (Pct) (10/11/21 17:35) Chest 1 View, Ap/Pa Only (10/11/21 17:35) Fibrin Degradation Products (10/11/21 17:35) Naloxone Injection (Narcan Injection) (10/11/21 18:30) Rt Request For Service (10/11/21 18:17) Transfer - Bed/Room/Location (10/11/21 18:27) Cpoe Transfer Order Process (10/11/21 18:33) Bnp Mccone (10/11/21 18:34) Pantoprazole Injection (Protonix Injecti (10/11/21 18:45) Blood Culture (10/11/21 18:35) Urinalysis (10/11/21 18:35) Urine Culture (10/11/21 18:35) Cefepime 2 Gm Ivpb (Q12hr) (10/11/21 21:00) Flagyl 500 Mg Iv (Q8hr) (10/11/21 22:00) Medications Given in ED Current Medications Medications Dose Ordered Sig/Anabel Route Start Time Stop Time Status Last Admin Dose Admin Iohexol 100 ml ONCE ONCE IV 10/11/21 10:45 10/11/21 10:46 DC 10/11/21 11:12 100 ML Metoprolol Succinate 100 mg ONCE ONCE PO 10/11/21 13:45 10/11/21 13:46 DC 10/11/21 14:15 100 MG Naloxone HCl 0.4 mg ONCE ONCE IV 10/11/21 18:30 10/11/21 18:31 DC 10/11/21 18:20 0.4 MG Sodium Chloride 100 ml ONCE ONCE IV 10/11/21 10:45 10/11/21 10:46 DC 10/11/21 11:12 80 ML Vital Signs/I&O 10/09/21 10/09/21 10/09/21 10/09/21 09:21 12:27 12:45 16:07 Temp 35.8 35.9 36.4 36.5 Pulse 91 74 71 75 Resp 16 15 18 18 B/P (MAP) 157/108 (124) 144/78 159/78 (105) 170/92 (118) Pulse Ox 97 97 98 O2 Delivery Room Air Room Air Room Air Room Air 10/09/21 10/09/21 10/09/21 10/09/21 16:09 16:23 19:00 19:30 Temp 36.5 Pulse 75 75 79 Resp 18 B/P (MAP) 103/56 (72) Pulse Ox 98 95 O2 Delivery Room Air Room Air 10/09/21 10/10/21 10/10/21 10/10/21 20:08 00:09 01:00 03:56 Temp 36.7 36.5 Pulse 84 73 70 Resp 18 20 B/P (MAP) 135/63 (87) 127/50 (75) Pulse Ox 94 92 O2 Delivery Room Air Room Air Room Air 10/10/21 10/10/21 10/10/21 10/10/21 07:00 07:59 09:01 12:00 Temp 36.0 35.4 Pulse 85 74 87 Resp 16 18 B/P (MAP) 120/65 (83) 161/75 (103) Pulse Ox 92 94 O2 Delivery Room Air Room Air Room Air 10/10/21 10/10/21 10/10/21 10/10/21 12:50 14:43 15:49 19:00 Temp 35.7 Pulse 104 87 110 Resp 24 B/P (MAP) 131/81 (98) Pulse Ox 97 92 O2 Delivery Room Air Room Air 10/10/21 10/10/21 10/10/21 10/10/21 20:28 21:00 21:24 23:26 Temp 36.5 36.6 Pulse 88 94 Resp 18 18 B/P (MAP) 132/78 (96) 134/70 (91) Pulse Ox 93 98 O2 Delivery Room Air Room Air Room Air Room Air 10/11/21 10/11/21 10/11/21 10/11/21 01:00 04:47 07:00 07:29 Temp 36.4 36.4 Pulse 94 85 73 81 Resp 18 20 B/P (MAP) 138/78 (98) 183/91 (121) Pulse Ox 95 92 O2 Delivery Room Air Room Air 10/11/21 10/11/21 10/11/21 10/11/21 09:05 11:12 13:00 17:00 Temp 36.8 37.2 Pulse 93 78 90 Resp 20 12 B/P (MAP) 194/91 (125) 155/88 (110) Pulse Ox 92 95 95 O2 Delivery Room Air Room Air Nasal Cannula O2 Flow Rate 4.50 10/11/21 00:00 Intake Total 240 ml Output Total 700 ml Balance -460 ml Blood Pressure Mean: 110 Diagnostic Imaging Diagonstic Imaging: Xray Plain Films/CT/US/NM/MRI: chest Time of Consult: 12:00 Diagnosis/Problems Diagnosis/Problems (1) Aspiration pneumonia (2) Pre-syncope (3) Nausea & vomiting Status: Acute (4) Uncontrolled hypertension (5) Dizziness Status: Acute Problem Qualifiers (1) Nausea & vomiting: Qualified Codes: R11.2 - Nausea with vomiting, unspecified MANI THORNTON DO Oct 11, 2021 18:44
[2021-10-11 18:56] LABS: BILIRUBIN,URINE NEGATIVE (NEGATIVE); CLARITY,URINE CLEAR; COLOR,URINE YELLOW; GLUCOSE, URINE (UA) NEGATIVE (NEGATIVE); KETONES,URINE NEGATIVE (NEGATIVE); LEUKOCYTE ESTERASE ,URINE NEGATIVE (NEGATIVE); NITRITE,URINE NEGATIVE (NEGATIVE); PH,URINE 5.5 (5-9); PROTEIN,URINE NEGATIVE (NEGATIVE)
[2021-10-11] MEDS ORDERED: methylPREDNISolone 125 MG (Solu-MEDROL) VIAL ONE (18:57)
[2021-10-11 19:05] LABS: BACTERIA,URINE FEW /HPF; HYALINE CASTS, URINE 0-2 /LPF; SQUAMOUS EPITHELIAL CELL,UR RARE /HPF
[2021-10-11] MEDS: methylPREDNISolone 125 MG (Solu-MEDROL) VIAL IVP SCH (19:13)
[2021-10-11] MEDS ORDERED: FUROSEMIDE 40 MG/4 ML INJ (LASIX) IVP ONE (20:00)
[2021-10-11] MEDS: CEFEPIME INJECTION 2,000 MG in NS (IVPB) 50 ML IV SCH (21:35)
[2021-10-11] MEDS: PANTOPRAZOLE 40 MG (PROTONIX) VIAL IV SCH (21:36)
[2021-10-11] MEDS: metroNIDAZOLE 500MG/100ML IVPB 100 ML IV SCH (22:32)
[2021-10-12] VITALS (13 sets, daily range): BP systolic 160–188; BP diastolic 82–114
[2021-10-12] MEDS: methylPREDNISolone 125 MG (Solu-MEDROL) VIAL IVP SCH ×5 (00:36→23:57)
[2021-10-12] MEDS: PROMETHAZINE INJ 25 MG/ML (PHENERGAN) AMP IM PRN (00:53)
[2021-10-12] MEDS: ACETAMINOPHEN 500 MG TAB (TYLENOL) PO PRN (04:46)
[2021-10-12] MEDS: NS IV 1000 ML 1,000 ML IV SCH (04:46)
[2021-10-12] MEDS: ONDANSETRON 4 MG/2 ML (SDV) Z0FRAN IVP PRN ×2 (05:04→12:45)
[2021-10-12 05:15] LABS: BASOPHILS % (AUTO) 0 % (0-10); EOSINOPHILS % (AUTO) 0 % (0-10); HEMATOCRIT 35 % (35-52); HEMOGLOBIN 11.6 g/dL (11.5-16.0); LYMPHOCYTES # (AUTO) 1.1 10^3/uL (1.0-4.0); LYMPHOCYTES % (AUTO) 8 % (12-44); MEAN CORPUSCULAR HEMOGLOBIN 30 pg (25-34); MEAN CORPUSCULAR HGB CONC 33 g/dL (32-36); MEAN CORPUSCULAR VOLUME 91 fL (80-99); MEAN PLATELET VOLUME 8.2 fL (9.0-12.2); MONOCYTES # (AUTO) 0.1 10^3/uL (0.0-1.0); MONOCYTES % (AUTO) 1 % (0-12); NEUTROPHILS # (AUTO) 11.7 10^3/uL (1.8-7.8); NEUTROPHILS % (AUTO) 88 % (42-75); PLATELET COUNT 233 10^3/uL (130-400); WHITE BLOOD COUNT 13.3 10^3/uL (4.3-11.0)
[2021-10-12] MEDS ORDERED: hydrALAZINE (APESOLINE) 20 MG/ML VIAL ONE (05:25)
[2021-10-12 05:26] LABS: POTASSIUM 3.8 MMOL/L (3.6-5.0)
[2021-10-12 05:27] LABS: CALCIUM 8.8 MG/DL (8.5-10.1)
[2021-10-12 05:28] LABS: TOTAL PROTEIN 7.7 GM/DL (6.4-8.2)
[2021-10-12 05:30] LABS: BILIRUBIN,TOTAL 0.3 MG/DL (0.1-1.0)
[2021-10-12] MEDS: hydrALAZINE (APESOLINE) 20 MG/ML VIAL IV PRN (05:31)
[2021-10-12] MEDS: metroNIDAZOLE 500MG/100ML IVPB 100 ML IV SCH ×3 (05:31→22:35)
[2021-10-12] MEDS: SUCRALFATE 1 GM (CARAFATE) TAB PO SCH ×4 (05:31→21:42)
[2021-10-12 05:32] LABS: CREATININE SERUM 0.8 MG/DL (0.60-1.30)
[2021-10-12 05:34] LABS: MAGNESIUM 1.7 MG/DL (1.6-2.4)
[2021-10-12] MEDS ORDERED: KCL 20 MEQ TAB (K-DUR) PO SCH (06:00)
[2021-10-12] MEDS ORDERED: POTASSIUM CL 10MEQ/50ML IVPB 50 ML IV SCH (06:00)
[2021-10-12] MEDS ORDERED: MAGNESIUM 1 GM/100 ML IVPB 100 ML IV SCH (06:00)
--- NOTE | 2021-10-12 06:14 | Progress Note - Hospitalist ---
Subjective HPI/CC On Admission Date Seen by Provider: Oct 12, 2021 Time Seen by Provider: 10:30 CC: Dizziness HPI: This is a 61 yr old female. She presented with dizziness for the past 2 weeks. She is also complaining of abdominal pain and she is having a lot of nausea and vomiting. I did consult Dr. Moulton. I ordered Amylase and Lipase to today's labs. Acute abdominal series x-ray was ordered. Due to the mid epigastri c pain I did go ahead and order an EKG, ECHO, and Dr. Lawrence consult. I reviewed ER workup. Subjective/Events-last exam Patient doing very well Abx maintained in case aspiration yesterday progresses IV steroids maintained Moved to 4th floor O2 1 liter DC Dilaudid ABG repeat this am reviewed Adam cath in place EGD to be performed tomorrow by Dr Moulton since she has not had one before and she had blood tinged emesis yesterday when she moved to ICU Review of Systems General: Fatigue Focused Exam Lactate Level 10/11/21 17:50: Lactic Acid Level 0.97 Objective Exam Vital Signs Vital Signs Date Time Temp Pulse Resp B/P (MAP) Pulse Ox O2 Delivery O2 Flow Rate FiO2 10/12/21 13:00 73 10/12/21 12:30 36.1 18 176/106 (129) 97 Nasal Cannula 1.50 10/12/21 04:00 30 Capillary Refill : Less Than 3 Seconds General Appearance: No Apparent Distress, WD/WN, Chronically ill, Obese Respiratory: Lungs Clear, Normal Breath Sounds Cardiovascular: Regular Rate, Rhythm Neurologic/Psychiatric: Alert, Oriented x3, No Motor/Sensory Deficits, Normal Mood/Affect Results/Procedures Lab Laboratory Tests 10/11/21 17:50 10/12/21 05:01 Patient resulted labs reviewed. Assessment/Plan Assessment and Plan Assess & Plan/Chief Complaint Assessment: s/p respiratory distress due to aspiration due to CO2 narcosis from narcotic use and morbid obesity and prone to KEVIN/OHS Aspiration PNA Dizziness Headache N/V Mid-epigastric abdominal pain Obesity Depression Atypical chest pain consulted Cardiology Plan: Consult Cardiology and surgery Xray abd Check amylase and lipase 10/11/21: CT reviewed Appreciate Surgery and Cardiology 10/12/21: IV abx DC adam Move to 4th floor Diagnosis/Problems Diagnosis/Problems (1) Aspiration pneumonia (2) Pre-syncope (3) Nausea & vomiting Status: Acute Qualifiers: Vomiting type: unspecified Qualified Codes: R11.2 - Nausea with vomiting, unspecified (4) Uncontrolled hypertension (5) Dizziness Status: Acute MANI THORNTON DO Oct 12, 2021 06:14
[2021-10-12] MEDS ORDERED: amLODIPine 5 MG (NORVASC) TAB PO ONE (06:15)
[2021-10-12] MEDS: MAGNESIUM 1 GM/100 ML IVPB 100 ML IV SCH ×2 (06:25→08:10)
[2021-10-12] MEDS ORDERED: [UNRECOGNIZED DRUG - OTHER] PO PRN (06:30)
[2021-10-12] MEDS ORDERED: CAFFEINE PO PRN (06:30)
[2021-10-12] MEDS ORDERED: ASPIRIN PO PRN (06:30)
[2021-10-12] MEDS ORDERED: ACETAMINOPHEN PO PRN (06:30)
--- NOTE | 2021-10-12 07:02 | Diagnostic Imaging Report ---
INDICATION: Dyspnea. COMPARISON: 10/11/2021. FINDINGS: Lungs are clear. No failure, effusion or pneumothorax. IMPRESSION: No acute appearing abnormality. Dictated by: Dictated on workstation # [id number]
[2021-10-12] MEDS: ENOXAPARIN 40 MG/0.4 ML (LOVENOX) SYR SC SCH (08:06)
[2021-10-12] MEDS: PANTOPRAZOLE 40 MG (PROTONIX) VIAL IV SCH ×2 (08:06→21:43)
[2021-10-12] MEDS: MONTELUKAST 10 MG (SINGULAIR) TAB PO SCH (08:06)
[2021-10-12] MEDS: CEFEPIME INJECTION 2,000 MG in NS (IVPB) 50 ML IV SCH ×2 (08:06→21:43)
[2021-10-12] MEDS: LORATADINE (CLARITIN) 10 MG TAB PO SCH (08:06)
[2021-10-12] MEDS: SERTRALINE 100 MG (ZOLOFT) TAB PO SCH (08:06)
[2021-10-12] MEDS: lisINopril 40 MG (PRINIVIL) TABLET PO SCH (08:06)
[2021-10-12] MEDS ORDERED: meTOprolol SUCCINATE 100 MG (TOPROL XL) TAB PO SCH (09:00)
[2021-10-12] MEDS: IBUPROFEN 600 MG (MOTRIN) TAB PO PRN (10:08)
--- NOTE | 2021-10-12 10:08 | Tele-ICU Progress Note ---
Subjective Date Seen by a Provider: Oct 12, 2021 Time Seen by a Provider: 09:00 Subjective/Events-last exam This virtual visit was conducted using real time audio/video. Thank you for asking us to see this patient for respiratory insufficiency due to aspiration during hypoxic code blue on 4th floor Recent events:admitted w dizziness/nausea/vomiting. PMH:asthma/COPD, KEVIN, RLS. PE: VSS. O2 sat 96% on vapotherm 25 LPM, 40%. HEENT: No obvious masses, adenopathy or JVD. Chest: clear to auscultation. Diminished. CV: RRR S1 S2 No murmur or added sounds. Abd: Non-tender. Bowel sounds Y. : Unremarkable. Osorio Y. 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 No obvious focal findings. Extremities: Tr edema. Capillary refill < 3 seconds. Skin: unremarkable. Results: Elevated WCC 13.3, BG 174. B.22/70/85. CXR: Clear, hyp erinflated.. Available chart/ vitals / labs / images reviewed. Video assessment done using teleICU camera, rest of exam as per RN. A/P: Respiratory insufficiency: Continue present management with VT, alb., medrol, singulair. Monitor for increasing oxygenation needs and/or need for intubation. Critical Care: critically ill patient. Cont. abx, metop., sucralfate, lisinop., PPI, abilify, statin, clonidine, maren. Discussed with KEM Mon. Asked RN to reach out to eICU if any questions or concerns later. Time spent with patient/coordination of care with other health professionals (mins): 30 Sepsis Event Evaluation Height, Weight, BMI Height: 5'2.00" Weight: 168lbs. 0oz. 76.662622mm; 40.99 BMI Method:Stated Focused Exam Lactate Level 10/11/21 17:50: Lactic Acid Level 0.97 Exam Exam Patient acknowledged, consented, and participated in this virtual visit which was conducted using real time audio/video Vital Signs Date Time Temp Pulse Resp B/P (MAP) Pulse Ox O2 Delivery O2 Flow Rate FiO2 10/12/21 09:00 81 17 166/83 (110) 96 Nasal Cannula 2.00 10/12/21 08:00 83 14 160/91 (114) 94 Nasal Cannula 2.00 10/12/21 07:53 36.5 10/12/21 07:00 85 19 167/101 (123) 97 Nasal Cannula 2.00 10/12/21 07:00 81 10/12/21 06:00 80 15 169/97 (121) 97 Nasal Cannula 3.00 10/12/21 05:08 35.8 94 Nasal Cannula 3.00 10/12/21 05:00 90 14 188/114 (138) 97 Vapotherm 30.00 20.00 10/12/21 04:00 92 Vapotherm 20.00 30 10/12/21 04:00 78 17 173/95 (121) 97 Vapotherm 30.00 20.00 10/12/21 03:00 82 16 185/106 (132) 96 Vapotherm 30.00 20.00 10/12/21 02:22 95 Vapotherm 20.00 30 10/12/21 02:00 78 13 178/100 (126) 95 Vapotherm 30.00 20.00 10/12/21 01:00 80 10/12/21 01:00 74 15 180/102 (128) 95 Vapotherm 30.00 20.00 10/12/21 00:00 92 Vapotherm 40 10/12/21 00:00 75 20 188/112 (137) 90 Vapotherm 30.00 20.00 10/11/21 23:37 36.1 93 30.00 20.00 10/11/21 23:00 73 15 177/103 (127) 95 Vapotherm 40.00 25.00 10/11/21 22:44 95 20.00 30 10/11/21 22:40 96 Vapotherm 25.00 40 10/11/21 22:00 78 14 176/104 (128) 96 Vapotherm 40.00 25.00 10/11/21 21:00 80 12 167/99 (121) 96 Vapotherm 40.00 25.00 10/11/21 20:00 79 12 153/97 (115) 95 Vapotherm 40.00 25.00 10/11/21 20:00 92 Vapotherm 40 10/11/21 20:00 36.8 Vapotherm 40.00 25.00 10/11/21 19:00 89 12 150/101 (117) 98 Vapotherm 40.00 25.00 10/11/21 19:00 87 10/11/21 18:42 100 Vapotherm 40.00 40 10/11/21 18:30 37.3 10/11/21 17:00 37.2 90 12 155/88 (110) 95 Nasal Cannula 4.50 10/11/21 13:00 78 10/11/21 11:12 36.8 93 20 194/91 (125) 95 Room Air I & O 10/12/21 07:00 Intake Total 4150 ml Output Total 4000 ml Balance 150 ml Height & Weight Height: 5'2.00" Weight: 168lbs. 0oz. 76.853020uu; 40.99 BMI Method:Stated General Appearance: WD/WN, Anxious, Chronically ill, Mild Distress HEENT: PERRL/EOMI, TMs Normal, Pharynx Normal Neck: Non Tender, Supple Respiratory: No Accessory Muscle Use, No Respiratory Distress, Decreased Breath Sounds Cardiovascular: Regular Rate, Rhythm Capillary Refill: Less Than 3 Seconds Gastrointestinal: soft, tenderness (Epigastric area) Extremity: Normal Range of Motion, Non Tender Neurologic/Psychiatric: Alert, Oriented x3, No Motor/Sensory Deficits, Normal Mood/Affect Skin: Normal Color, Warm/Dry Results Lab Laboratory Tests 10/11/21 06:41 10/11/21 17:50 10/12/21 05:01 Assessment/Plan Assessment/Plan See free text. Critical Care: Critically Ill Patient ISMAEL BALDERAS MD Oct 12, 2021 10:08
[2021-10-12] MEDS: DICYCLOMINE 10 MG (BENTYL) CAP PO SCH ×3 (10:11→21:42)
--- NOTE | 2021-10-12 13:10 | Progress Note - Cardiology ---
Cardiology SOAP Progress Note Subjective: Episode of hypoxia on 10/11/[address] Morales who diagnosed it as aspiration pneumonia. Was transiently in the ICU. Now back on floor Continues with headache and abd pain and nausea No cp or palp or syncope or shortness of breath Mod dizziness Gen weakness and malaise Objective: I&O/Vital Signs 10/12/21 10/12/21 10/12/21 10/12/21 02:00 02:22 03:00 04:00 Pulse 78 82 78 Resp 13 16 17 B/P (MAP) 178/100 (126) 185/106 (132) 173/95 (121) Pulse Ox 95 95 96 97 O2 Delivery Vapotherm Vapotherm Vapotherm Vapotherm O2 Flow Rate 30.00 20.00 30.00 30.00 20.00 20.00 20.00 FiO2 30 10/12/21 10/12/21 10/12/21 10/12/21 04:00 05:00 05:08 06:00 Temp 35.8 Pulse 90 80 Resp 14 15 B/P (MAP) 188/114 (138) 169/97 (121) Pulse Ox 92 97 94 97 O2 Delivery Vapotherm Vapotherm Nasal Cannula Nasal Cannula O2 Flow Rate 20.00 30.00 3.00 3.00 20.00 FiO2 30 10/12/21 10/12/21 10/12/21 10/12/21 07:00 07:00 07:53 08:00 Temp 36.5 Pulse 81 85 83 Resp 19 14 B/P (MAP) 167/101 (123) 160/91 (114) Pulse Ox 97 94 O2 Delivery Nasal Cannula Nasal Cannula O2 Flow Rate 2.00 2.00 10/12/21 10/12/21 10/12/21 10/12/21 08:00 09:00 10:00 12:30 Temp 36.1 Pulse 81 88 73 Resp 17 22 18 B/P (MAP) 166/83 (110) 176/106 (129) Pulse Ox 92 96 91 97 O2 Delivery Nasal Cannula Nasal Cannula Nasal Cannula Nasal Cannula O2 Flow Rate 1.50 2.00 1.50 1.50 10/12/21 00:00 Intake Total 1150 ml Output Total 3200 ml Balance -2050 ml Weight (Pounds): 168 Weight (Ounces): 0 Weight (Calculated Kilograms): [phone] Constitutional: AAO x 3, well-developed, well-nourished Respiratory: No accessory muscle use, No respiratory distress; chest expansion is symmetric, chest is bilaterally symmetric, lungs clear to auscultation Cardiovascular: regular rate-rhythm; No JVD; S1 and S2 Gastrointestional: distended; No guarding; audible bowel sounds, other (emesis) Extremities: no lower extremity edema bilateral Neurologic/Psychiatric: grossly intact (moves all extremities) Skin: No rash on exposed areas, No ulcerations on exposed areas Results/Procedures: Labs Laboratory Tests 10/11/21 17:40: Blood Gas Puncture Site LEFT RADIAL, Blood Gas Patient Temperature 37.2, Arterial Blood pH 7.22*L, Arterial Blood Partial Pressure CO2 70H, Arterial Blood Partial Pressure O2 85, Arterial Blood HCO3 28H, Arterial Blood Total CO2 30.0, Arterial Blood Oxygen Saturation 93L, Arterial Blood Base Excess 1.0, Steve Test YES-POS, Blood Gas Ventilator Setting NO, Blood Gas Inspired Oxygen 4.5 10/11/21 17:50: White Blood Count 13.2H, Red Blood Count 3.72L, Hemoglobin 11.2L, Hematocrit 35, Mean Corpuscular Volume 94, Mean Corpuscular Hemoglobin 30, Mean Corpuscular Hemoglobin Concent 32, Red Cell Distribution Width 14.5, Platelet Count 237, Mean Platelet Volume 8.0L, Immature Granulocyte % (Auto) 2, Neutrophils (%) (Auto) 78H, Lymphocytes (%) (Auto) 15, Monocytes (%) (Auto) 4, Eosinophils (%) (Auto) 1, Basophils (%) (Auto) 0, Neutrophils # (Auto) 10.3H, Lymphocytes # (Auto) 2.0, Monocytes # (Auto) 0.6, Eosinophils # (Auto) 0.1, Basophils # (Auto) 0.0, Immature Granulocyte # (Auto) 0.2H, D-Dimer < 0.27, Sodium Level 139, Potassium Level 4.4, Chloride Level 106, Carbon Dioxide Level 23, Anion Gap 10, Blood Urea Nitrogen 8, Creatinine 0.72, Estimat Glomerular Filtration Rate 96, BUN/Creatinine Ratio 11, Glucose Level 128H, Lactic Acid Level 0.97, Calcium Level 8.4L, Corrected Calcium 8.4L, Total Bilirubin 0.2, Aspartate Amino Transf (AST/SGOT) 21, Alanine Aminotransferase (ALT/SGPT) 27, Alkaline Phosphatase 53, B-Type Natriuretic Peptide 129.5H, Total Protein 7.3, Albumin 4.0, Procalcitonin 0.01 10/11/21 18:41: Urine Color YELLOW, Urine Clarity CLEAR, Urine pH 5.5, Urine Specific [place] 1.020, Urine Protein NEGATIVE, Urine Glucose (UA) NEGATIVE, Urine Ketones NEGATIVE, Urine Nitrite NEGATIVE, Urine Bilirubin NEGATIVE, Urine Urobilinogen 0.2, Urine Leukocyte Esterase NEGATIVE, Urine RBC (Auto) NEGATIVE, Urine RBC NONE, Urine WBC NONE, Urine Squamous Epithelial Cells RARE, Urine Crystals NONE, Urine Bacteria FEWH, Urine Casts PRESENT, Urine Hyaline Casts 0-2H, Urine Mucus SMALLH, Urine Culture Indicated CULTURE PENDING 10/12/21 04:59: Glucometer 171H 10/12/21 05:01: White Blood Count 13.3H, Red Blood Count 3.87, Hemoglobin 11.6, Hematocrit 35, Mean Corpuscular Volume 91, Mean Corpuscular Hemoglobin 30, Mean Corpuscular He moglobin Concent 33, Red Cell Distribution Width 14.3, Platelet Count 233, Mean Platelet Volume 8.2L, Immature Granulocyte % (Auto) 4, Neutrophils (%) (Auto) 88H, Lymphocytes (%) (Auto) 8L, Monocytes (%) (Auto) 1, Eosinophils (%) (Auto) 0, Basophils (%) (Auto) 0, Neutrophils # (Auto) 11.7H, Lymphocytes # (Auto) 1.1, Monocytes # (Auto) 0.1, Eosinophils # (Auto) 0.0, Basophils # (Auto) 0.0, Immature Granulocyte # (Auto) 0.5H, Sodium Level 139, Potassium Level 3.8, Chloride Level 99, Carbon Dioxide Level 24, Anion Gap 16H, Blood Urea Nitrogen 8, Creatinine 0.80, Estimat Glomerular Filtration Rate 84, BUN/Creatinine Ratio 10, Glucose Level 174H, Calcium Level 8.8, Corrected Calcium 8.8, Phosphorus Level 3.0, Magnesium Level 1.7, Total Bilirubin 0.3, Aspartate Amino Transf (AST/SGOT) 22, Alanine Aminotransferase (ALT/SGPT) 30, Alkaline Phosphatase 53, Total Protein 7.7, Albumin 4.0 10/12/21 10:12: POC pH (Misc Panel) 7.458H, POC Base Excess (Misc Panel) 4H, POC pO2 (Misc Panel) 64L, POC pCO2 (Misc Panel) 39.7L, POC HCO3 (Misc Panel) 28.1H, POC Blood Gas Total CO2 Calc 29, Bedside Bl Gas O2 Saturation (Calc) 93L, Bedside Lactic Acid Laboratory Tests 10/11/21 06:41 10/11/21 17:50 10/12/21 05:01 A/P: Assessment: Episode of hypoxia on 10/11/21, managed by Dr Morales and diagnosed aspiration pneumonia - transiently in ICU (10/10/21), now back on the Med floor Dizziness of undetermined etiology - no evidence of carotid dz per u/s of 10-09-21 - no acute intracranial abnormality on CT of the head on 10-09-21 Headache and abdominal discomfort, managed by Dr Morales HTN - continue home medications Nausea and vomiting - management per Medical services Obesity H/o cholecystectomy and appendectomy H/o hysterectomy Plan: Increase beta-ave because bp still not well controlled Management of CAMACHO and abd discomfort and hypoxia/pneumonia is with Dr Morales Monitor labs Replace electrolytes as indicated ARLENE GREENWOOD MD FACP FACC CCDS Oct 12, 2021 13:10
[2021-10-12] MEDS ORDERED: meTOprolol SUCCINATE 100 MG (TOPROL XL) TAB PO ONE (13:48)
--- NOTE | 2021-10-12 14:40 | Progress Note - Surgery ---
Subjective Date Seen by a Provider: Oct 12, 2021 Time Seen by a Provider: 09:24 Subjective/Events-last exam Patient was transferred to the intensive care unit last night. She had to be given Narcan and began having some respiratory issues. Patient this morning doing better. She still has epigastric abdominal pain. She still feels nausea and vomiting. She is taking some clears. Feels bloated in the epigastric region. CT scan of the abdomen yesterday was without any acute finding. Chest x-ray today without any acute abnormality. Focused Exam Lactate Level 10/11/21 17:50: Lactic Acid Level 0.97 Objective Exam Vital Signs Date Time Temp Pulse Resp B/P (MAP) Pulse Ox O2 Delivery O2 Flow Rate FiO2 10/12/21 13:00 73 10/12/21 12:30 36.1 73 18 176/106 (129) 97 Nasal Cannula 1.50 10/12/21 10:00 88 22 91 Nasal Cannula 1.50 10/12/21 09:00 81 17 166/83 (110) 96 Nasal Cannula 2.00 10/12/21 08:00 92 Nasal Cannula 1.50 10/12/21 08:00 83 14 160/91 (114) 94 Nasal Cannula 2.00 10/12/21 07:53 36.5 10/12/21 07:00 85 19 167/101 (123) 97 Nasal Cannula 2.00 10/12/21 07:00 81 10/12/21 06:00 80 15 169/97 (121) 97 Nasal Cannula 3.00 10/12/21 05:08 35.8 94 Nasal Cannula 3.00 10/12/21 05:00 90 14 188/114 (138) 97 Vapotherm 30.00 20.00 10/12/21 04:00 92 Vapotherm 20.00 30 10/12/21 04:00 78 17 173/95 (121) 97 Vapotherm 30.00 20.00 10/12/21 03:00 82 16 185/106 (132) 96 Vapotherm 30.00 20.00 10/12/21 02:22 95 Vapotherm 20.00 30 10/12/21 02:00 78 13 178/100 (126) 95 Vapotherm 30.00 20.00 10/12/21 01:00 80 10/12/21 01:00 74 15 180/102 (128) 95 Vapotherm 30.00 20.00 10/12/21 00:00 92 Vapotherm 40 10/12/21 00:00 75 20 188/112 (137) 90 Vapotherm 30.00 20.00 10/11/21 23:37 36.1 93 30.00 20.00 10/11/21 23:00 73 15 177/103 (127) 95 Vapotherm 40.00 25.00 10/11/21 22:44 95 20.00 30 10/11/21 22:40 96 Vapotherm 25.00 40 10/11/21 22:00 78 14 176/104 (128) 96 Vapotherm 40.00 25.00 10/11/21 21:00 80 12 167/99 (121) 96 Vapotherm 40.00 25.00 10/11/21 20:00 79 12 153/97 (115) 95 Vapotherm 40.00 25.00 10/11/21 20:00 92 Vapotherm 40 10/11/21 20:00 36.8 Vapotherm 40.00 25.00 10/11/21 19:00 89 12 150/101 (117) 98 Vapotherm 40.00 25.00 10/11/21 19:00 87 10/11/21 18:42 100 Vapotherm 40.00 40 10/11/21 18:30 37.3 10/11/21 17:00 37.2 90 12 155/88 (110) 95 Nasal Cannula 4.50 I & O 10/12/21 07:00 Intake Total 4150 ml Output Total 4000 ml Balance 150 ml Capillary Refill : Less Than 3 Seconds General Appearance: Anxious, Chronically ill, Obese HEENT: PERRL/EOMI, TMs Normal, Pharynx Normal Neck: Non Tender, Supple Respiratory: Chest Non Tender, No Accessory Muscle Use, No Respiratory Distress Cardiovascular: Regular Rate, Rhythm, No JVD Gastrointestinal: soft, tenderness (Epigastric area) Extremity: Normal Range of Motion, Non Tender Neurologic/Psychiatric: Alert, Oriented x3 Skin: Normal Color, Warm/Dry Lymphatic: No Adenopathy Results Lab Laboratory Tests 10/11/21 17:40: Blood Gas Puncture Site LEFT RADIAL, Blood Gas Patient Temperature 37.2, Art erial Blood pH 7.22*L, Arterial Blood Partial Pressure CO2 70H, Arterial Blood Partial Pressure O2 85, Arterial Blood HCO3 28H, Arterial Blood Total CO2 30.0, Arterial Blood Oxygen Saturation 93L, Arterial Blood Base Excess 1.0, Steve Test YES-POS, Blood Gas Ventilator Setting NO, Blood Gas Inspired Oxygen 4.5 10/11/21 17:50: White Blood Count 13.2H, Red Blood Count 3.72L, Hemoglobin 11.2L, Hematocrit 35, Mean Corpuscular Volume 94, Mean Corpuscular Hemoglobin 30, Mean Corpuscular Hemoglobin Concent 32, Red Cell Distribution Width 14.5, Platelet Count 237, Mean Platelet Volume 8.0L, Immature Granulocyte % (Auto) 2, Neutrophils (%) (Auto) 78H, Lymphocytes (%) (Auto) 15, Monocytes (%) (Auto) 4, Eosinophils (%) (Auto) 1, Basophils (%) (Auto) 0, Neutrophils # (Auto) 10.3H, Lymphocytes # (Auto) 2.0, Monocytes # (Auto) 0.6, Eosinophils # (Auto) 0.1, Basophils # (Auto) 0.0, Immature Granulocyte # (Auto) 0.2H, D-Dimer < 0.27, Sodium Level 139, Potassium Level 4.4, Chloride Level 106, Carbon Dioxide Level 23, Anion Gap 10, Blood Urea Nitrogen 8, Creatinine 0.72, Estimat Glomerular Filtration Rate 96, BUN/Creatinine Ratio 11, Glucose Level 128H, Lactic Acid Level 0.97, Calcium Level 8.4L, Corrected Calcium 8.4L, Total Bilirubin 0.2, Aspartate Amino Transf (AST/SGOT) 21, Alanine Aminotransferase (ALT/SGPT) 27, Alkaline Phosphatase 53, B-Type Natriuretic Peptide 129.5H, Total Protein 7.3, Albumin 4.0, Procalcitonin 0.01 10/11/21 18:41: Urine Color YELLOW, Urine Clarity CLEAR, Urine pH 5.5, Urine Specific [place] 1.020, Urine Protein NEGATIVE, Urine Glucose (UA) NEGATIVE, Urine Ketones NEGATIVE, Urine Nitrite NEGATIVE, Urine Bilirubin NEGATIVE, Urine Urobilinogen 0.2, Urine Leukocyte Esterase NEGATIVE, Urine RBC (Auto) NEGATIVE, Urine RBC NONE, Urine WBC NONE, Urine Squamous Epithelial Cells RARE, Urine Crystals NONE, Urine Bacteria FEWH, Urine Casts PRESENT, Urine Hyaline Casts 0-2H, Urine Mucus SMALLH, Urine Culture Indicated CULTURE PENDING 10/12/21 04:59: Glucometer 171H 10/12/21 05:01: White Blood Count 13.3H, Red Blood Count 3.87, Hemoglobin 11.6, Hematocrit 35, Mean Corpuscular Volume 91, Mean Corpuscular Hemoglobin 30, Mean Corpuscular Hemoglobin Concent 33, Red Cell Distribution Width 14.3, Platelet Count 233, Mean Platelet Volume 8.2L, Immature Granulocyte % (Auto) 4, Neutrophils (%) (Auto) 88H, Lymphocytes (%) (Auto) 8L, Monocytes (%) (Auto) 1, Eosinophils (%) (Auto) 0, Basophils (%) (Auto) 0, Neutrophils # (Auto) 11.7H, Lymphocytes # (Auto) 1.1, Monocytes # (Auto) 0.1, Eosinophils # (Auto) 0.0, Basophils # (Auto) 0.0, Immature Granulocyte # (Auto) 0.5H, Sodium Level 139, Potassium Level 3.8, Chloride Level 99, Carbon Dioxide Level 24, Anion Gap 16H, Blood Urea Nitrogen 8, Creatinine 0.80, Estimat Glomerular Filtration Rate 84, BUN/Creatinine Ratio 10, Glucose Level 174H, Calcium Level 8.8, Corrected Calcium 8.8, Phosphorus Level 3.0, Magnesium Level 1.7, Total Bilirubin 0.3, Aspartate Amino Transf (AST/SGOT) 22, Alanine Aminotransferase (ALT/SGPT) 30, Alkaline Phosphatase 53, Total Protein 7.7, Albumin 4.0 10/12/21 10:12: POC pH (Misc Panel) 7.458H, POC Base Excess (Misc Panel) 4H, POC pO2 (Misc Panel) 64L, POC pCO2 (Misc Panel) 39.7L, POC HCO3 (Misc Panel) 28.1H, POC Blood Gas Total CO2 Calc 29, Bedside Bl Gas O2 Saturation (Calc) 93L, Bedside Lactic Acid Microbiology 10/11/21 Blood Culture - Preliminary, Resulted No growth Assessment/Plan Assessment/Plan Assessment/Plan Epigastric abdominal pain nausea vomiting Headache History of cholecystectomy Patient pain in the epigastric region continued. Dr. Morales and I discussed rad iological studies and labs. No clear-cut explanation for patient's symptoms. We both feel most appropriate to do an EGD. Patient and I discussed risk and benefits of having EGD performed for further evaluation. She understands risk and benefits and wishes to proceed. Patient to be n.p.o. after midnight. Obtain consent DANELLE SHERWOOD DO Oct 12, 2021 14:40
[2021-10-12] MEDS: RT-ALBUTEROL SULF 2.5 MG/3 ML PRE-MIX VIAL INH SCH ×3 (15:54→19:25)
[2021-10-12] MEDS: traZODone 100 MG (DESYREL) TAB PO SCH (21:42)
[2021-10-12] MEDS: cloNIDine 0.1 MG (CATAPRES) TAB PO PRN (21:42)
[2021-10-12] MEDS: AtorvaSTATin TABLET 10 MG TABLET PO SCH (21:43)
[2021-10-13] VITALS (9 sets, daily range): BP systolic 136–187; BP diastolic 73–89
[2021-10-13] MEDS: DICYCLOMINE 10 MG (BENTYL) CAP PO SCH ×4 (05:02→20:33)
[2021-10-13] MEDS: ONDANSETRON 4 MG/2 ML (SDV) Z0FRAN IVP PRN ×2 (05:02→08:38)
[2021-10-13] MEDS: methylPREDNISolone 125 MG (Solu-MEDROL) VIAL IVP SCH ×4 (05:02→23:08)
[2021-10-13] MEDS: SUCRALFATE 1 GM (CARAFATE) TAB PO SCH ×4 (05:02→20:33)
[2021-10-13] MEDS: metroNIDAZOLE 500MG/100ML IVPB 100 ML IV SCH ×3 (05:02→23:08)
[2021-10-13] MEDS: hydrALAZINE (APESOLINE) 20 MG/ML VIAL IV PRN (05:30)
[2021-10-13 05:46] LABS: BASOPHILS % (AUTO) 0 % (0-10); EOSINOPHILS % (AUTO) 0 % (0-10); HEMATOCRIT 34 % (35-52); HEMOGLOBIN 11.2 g/dL (11.5-16.0); LYMPHOCYTES % (AUTO) 7 % (12-44); MEAN CORPUSCULAR HEMOGLOBIN 30 pg (25-34); MEAN CORPUSCULAR HGB CONC 33 g/dL (32-36); MEAN CORPUSCULAR VOLUME 90 fL (80-99); MEAN PLATELET VOLUME 8.2 fL (9.0-12.2); MONOCYTES # (AUTO) 0.3 10^3/uL (0.0-1.0); MONOCYTES % (AUTO) 2 % (0-12); NEUTROPHILS # (AUTO) 12.6 10^3/uL (1.8-7.8); NEUTROPHILS % (AUTO) 89 % (42-75); PLATELET COUNT 219 10^3/uL (130-400); WHITE BLOOD COUNT 14.1 10^3/uL (4.3-11.0)
[2021-10-13 06:01] LABS: ALBUMIN 3.8 GM/DL (3.2-4.5)
--- NOTE | 2021-10-13 06:01 | Progress Note - Hospitalist ---
Subjective HPI/CC On Admission Date Seen by Provider: Oct 13, 2021 Time Seen by Provider: 09:00 CC: Dizziness HPI: This is a 61 yr old female. She presented with dizziness for the past 2 weeks. She is also complaining of abdominal pain and she is having a lot of nausea and vomiting. I did consult Dr. Moulton. I ordered Amylase and Lipase to today's labs. Acute abdominal series x-ray was ordered. Due to the mid epigastri c pain I did go ahead and order an EKG, ECHO, and Dr. Lawrence consult. I reviewed ER workup. Subjective/Events-last exam Pt is doing about the same Had EGD this morning Nausea and vomiting continues and then a minute later she is asking to eat and drink I will keep her NPO Psych issues are causing skewed presentation and difficulty coping Review of Systems General: Fatigue, Malaise Gastrointestinal: Nausea, Vomiting, Abdominal Pain Focused Exam Lactate Level 10/11/21 17:50: Lactic Acid Level 0.97 Objective Exam Vital Signs Vital Signs Date Time Temp Pulse Resp B/P (MAP) Pulse Ox O2 Delivery O2 Flow Rate FiO2 10/14/21 06:24 75 10/14/21 06:13 151/92 10/14/21 04:01 35.9 16 97 Nasal Cannula 2.00 10/12/21 04:00 30 Capillary Refill : Less Than 3 Seconds General Appearance: Anxious, Chronically ill, Obese Respiratory: Lungs Clear, Normal Breath Sounds Cardiovascular: Regular Rate, Rhythm Neurologic/Psychiatric: Alert, Oriented x3 Results/Procedures Lab Laboratory Tests 10/14/21 04:35 Patient resulted labs reviewed. Assessment/Plan Assessment and Plan Assess & Plan/Chief Complaint Assessment: s/p respiratory distress due to aspiration due to CO2 narcosis from narcotic use and morbid obesity and high risk for KEVIN/OHS Aspiration PNA Dizziness Headache N/V Mid-epigastric abdominal pain Obesity Depression Atypical chest pain consulted Cardiology Emotional problems with difficulty coping Plan: Consult Cardiology and surgery Xray abd Check amylase and lipase 10/11/21: CT reviewed Appreciate Surgery and Cardiology 10/12/21: IV abx DC adam Move to 4th floor 10/13/2021: EGD [facility] Supportive care Critical Care Critically Ill Patient Diagnosis/Problems Diagnosis/Problems (1) Aspiration pneumonia (2) Pre-syncope (3) Nausea & vomiting Status: Acute Qualifiers: Vomiting type: unspecified Qualified Codes: R11.2 - Nausea with vomiting, unspecified (4) Uncontrolled hypertension (5) Dizziness Status: Acute MANI THORNTON DO Oct 13, 2021 06:01
[2021-10-13 06:02] LABS: POTASSIUM 3.3 MMOL/L (3.6-5.0)
[2021-10-13 06:03] LABS: CALCIUM 8.6 MG/DL (8.5-10.1)
[2021-10-13 06:06] LABS: BILIRUBIN,TOTAL 0.3 MG/DL (0.1-1.0)
[2021-10-13 06:08] LABS: CREATININE SERUM 0.76 MG/DL (0.60-1.30)
[2021-10-13 06:10] LABS: MAGNESIUM 2.7 MG/DL (1.6-2.4)
[2021-10-13] MEDS: RT-ALBUTEROL SULF 2.5 MG/3 ML PRE-MIX VIAL INH SCH ×3 (07:52→19:09)
[2021-10-13] MEDS: meTOprolol SUCCINATE 100 MG (TOPROL XL) TAB PO SCH (08:01)
[2021-10-13] MEDS: PANTOPRAZOLE 40 MG (PROTONIX) TAB PO SCH (08:02)
[2021-10-13] MEDS: lisINopril 40 MG (PRINIVIL) TABLET PO SCH (08:02)
[2021-10-13] MEDS: SERTRALINE 100 MG (ZOLOFT) TAB PO SCH (08:02)
[2021-10-13] MEDS: MONTELUKAST 10 MG (SINGULAIR) TAB PO SCH ×2 (08:03→12:10)
[2021-10-13] MEDS: LORATADINE (CLARITIN) 10 MG TAB PO SCH (08:03)
[2021-10-13] MEDS: ENOXAPARIN 40 MG/0.4 ML (LOVENOX) SYR SC SCH (08:03)
[2021-10-13] MEDS: CEFEPIME INJECTION 2,000 MG in NS (IVPB) 50 ML IV SCH ×2 (08:03→20:33)
[2021-10-13] MEDS ORDERED: LACTATED RINGERS 1,000 ML IV STA (08:52)
[2021-10-13] MEDS ORDERED: LACTATED RINGERS 1,000 ML IV ONE (08:56)
[2021-10-13] MEDS ORDERED: HURRICAINE EXT TUBE (BENZOCAINE) XX PRN (09:00)
[2021-10-13] MEDS ORDERED: proPOfol 200 MG/20 ML (DIPRIVAN) VIAL IV ONE (09:00)
--- NOTE | 2021-10-13 09:10 | Progress Note - Surgery ---
Subjective Date Seen by a Provider: Oct 13, 2021 Time Seen by a Provider: 09:07 Subjective/Events-last exam Still with epigastric pain nausea and vomiting. NPO for EGD today. No changes. Breathing she states is okay. Denies fever sweats chills or chest pain. Focused Exam Lactate Level 10/11/21 17:50: Lactic Acid Level 0.97 Objective Exam Vital Signs Date Time Temp Pulse Resp B/P (MAP) Pulse Ox O2 Delivery O2 Flow Rate FiO2 10/13/21 08:06 Nasal Cannula 1.50 10/13/21 07:52 98 Nasal Cannula 2.00 10/13/21 06:35 65 10/13/21 06:34 178/79 (112) 10/13/21 05:25 64 183/79 (113) 10/13/21 04:03 36.1 64 16 160/84 (109) 97 Nasal Cannula 2.00 10/13/21 01:00 59 10/13/21 00:00 35.7 69 16 164/79 (107) 95 Nasal Cannula 2.00 10/12/21 21:45 Nasal Cannula 1.50 10/12/21 21:40 36.0 78 20 185/82 (116) 96 Nasal Cannula 2.00 10/12/21 19:25 97 Room Air 0.00 10/12/21 19:00 69 10/12/21 16:55 36.6 76 20 165/92 (116) 97 Nasal Cannula 2.00 10/12/21 13:00 73 10/12/21 12:30 36.1 73 18 176/106 (129) 97 Nasal Cannula 1.50 10/12/21 12:30 97 Nasal Cannula 1.50 10/12/21 10:00 88 22 91 Nasal Cannula 1.50 I & O 10/13/21 07:00 Intake Total 2730 ml Output Total 2875 ml Balance -145 ml Capillary Refill : Less Than 3 Seconds General Appearance: WD/WN, Chronically ill, Obese, Other (uncomfortable) HEENT: PERRL/EOMI, TMs Normal, Pharynx Normal Neck: Non Tender, Supple Respiratory: Chest Non Tender, No Accessory Muscle Use, No Respiratory Distress Cardiovascular: Regular Rate, Rhythm, No JVD Gastrointestinal: soft, tenderness (Epigastric area) Extremity: Normal Range of Motion, Non Tender Neurologic/Psychiatric: Alert, Oriented x3, No Motor/Sensory Deficits, Normal Mood/Affect Skin: Normal Color, Warm/Dry Lymphatic: No Adenopathy Results Lab Laboratory Tests 10/12/21 10:12: POC pH (Misc Panel) 7.458H, POC Base Excess (Misc Panel) 4H, POC pO2 (Misc Panel) 64L, POC pCO2 (Misc Panel) 39.7L, POC HCO3 (Misc Panel) 28.1H, POC Blood Gas Total CO2 Calc 29, Bedside Bl Gas O2 Saturation (Calc) 93L, Bedside Lactic Acid 10/13/21 05:30: White Blood Count 14.1H, Red Blood Count 3.71L, Hemoglobin 11.2L, Hematocrit 34L , Mean Corpuscular Volume 90, Mean Corpuscular Hemoglobin 30, Mean Corpuscular Hemoglobin Concent 33, Red Cell Distribution Width 14.2, Platelet Count 219, Mean Platelet Volume 8.2L, Immature Granulocyte % (Auto) 1, Neutrophils (%) (Auto) 89H, Lymphocytes (%) (Auto) 7L, Monocytes (%) (Auto) 2, Eosinophils (%) (Auto) 0, Basophils (%) (Auto) 0, Neutrophils # (Auto) 12.6H, Lymphocytes # (Aut o) 1.0, Monocytes # (Auto) 0.3, Eosinophils # (Auto) 0.0, Basophils # (Auto) 0.0, Immature Granulocyte # (Auto) 0.2H, Sodium Level 140, Potassium Level 3.3L, Chloride Level 101, Carbon Dioxide Level 27, Anion Gap 12, Blood Urea Nitrogen 12, Creatinine 0.76, Estimat Glomerular Filtration Rate 90, BUN/Creatinine Ratio 16, Glucose Level 171H, Calcium Level 8.6, Corrected Calcium 8.8, Magnesium Level 2.7H, Total Bilirubin 0.3, Aspartate Amino Transf (AST/SGOT) 28, Alanine Aminotransferase (ALT/SGPT) 48, Alkaline Phosphatase 47, Total Protein 7.0, Albumin 3.8 Microbiology 10/11/21 Blood Culture - Preliminary, Resulted No growth Assessment/Plan Assessment/Plan Assessment/Plan Epigastric abdominal pain nausea vomiting Headache History of cholecystectomy Patient pain in the epigastric region continued. Today for EGD. Patient and I discussed risk and benefits of having EGD performed for further evaluation. She understands risk and benefits and wishes to proceed. DANELLE RIVERA DO Oct 13, 2021 09:09
[2021-10-13] MEDS ORDERED: HURRICAINE EXT TUBE (BENZOCAINE) ONE (09:12)
--- NOTE | 2021-10-13 09:31 | Anesthesia-General Post-Op ---
MAC Patient Condition Mental Status/LOC: Same as Preop Cardiovascular: Satisfactory Nausea/Vomiting: Absent Respiratory: Satisfactory Pain: Controlled Complications: Absent Post Op Complications Complications None Follow Up Care/Instructions Patient Instructions None needed. Anesthesiology Discharge Order Discharge Order Patient is doing well, no complaints, stable vital signs, no apparent adverse anesthesia problems. No complications reported per nursing. JEANNE PATINO CRNA Oct 13, 2021 09:31
--- NOTE | 2021-10-13 10:27 | Physical Therapy Evaluation ---
PT Evaluation-General Medical Diagnosis Admission Date Oct 11, 2021 at 18:27 Medical Diagnosis: Dizziness Onset Date: Oct 11, 2021 Therapy Diagnosis Therapy Diagnosis: debility/weakness Height/Weight Height (Feet): 5 Height (Inches): 2.00 Weight (Pounds): 168 Weight (Ounces): 0 Precautions Precautions/Isolations: Fall Prevention, Standard Precautions Referral Physician: Carmen Reason for Referral: Evaluation/Treatment Medical History Pertinent Medical History: COPD, DM, HTN Additional Medical History seizure/TB Current History ER secondary to dizziness/N&V Reviewed History: Yes Social History Home: Single Level Current Living Status: Spouse Prior Prior Level of Function SCALE: Activities may be completed with or without assistive devices. 5-Ynubatovfy-pzozyre completes the activity by him/herself with no assistance from a helper. 5-Set-up or Clean-up Assistance-helper sets up or cleans up; patient completes activity. [place] assists only prior to or following the activity. 4-Supervision or Touching Assistance-helper provides verbal cues and/or touching/steadying and/or contact guard assistance as patient completes activity. Assistance may be provided throughout the activity or intermittently. 3-Partial/Moderate Assistance-helper does LESS THAN HALF the effort. [place] lifts, holds or supports trunk or limbs, but provides less than half the effort. 2-Substantial/Maximal Assistance-helper does MORE THAN HALF the effort. [place] lifts or holds trunk or limbs and provides more than half the effort. 2-Fcxdgrbeo-udaret does ALL the effort. Patient does none of the effort to complete the activity. Or, the assistance of 2 or more helpers is required for the patient to complete the activity. If activity was not attempted, code reason: 7-Patient Refused. 9-Not Applicable-not attempted and the patient did not perform the activity before the current illness, exacerbation or injury. 10-Not Attempted due to Environmental Limitations-(lack of equipment, weather restraints, etc.). 88-Not Attempted due to Medical Conditions or Safety Concerns. Bed Mobility: 6 Transfers (B,C,W/C): 6 Gait: 6 Indoor Mobility (Ambulation): Independent Prior Devices Use: None PT Evaluation-Current Subjective Patient agrees to PT. C/o dizziness and high blood pressure Objective Patient Orientation: Normal For Age Attachments: Oxygen, IV ROM/Strength ROM Lower Extremities bilateral LE WFL Strength Lower Extremities 4-/5 grossly bilateral LE Integumentary/Posture Bowel Incontinence: No Bladder Incontinence: No Posture WFL Neuromuscular (Tone, Coordination, Reflexes) grossly intact Sensory Vision: Functional Hearing: Functional Transfers Roll Left to Right (QC): 6 Sit to Lying (QC): 6 Lying to Sitting/Side of Bed(Q: 6 Sit to Stand (QC): 4 Gait Mode of Locomotion: Walk Anticipated Mode of Locomotion: Walk Walk 10 feet (QC): 4 Walk 50 ft with 2 Turns(QC): 88 Walk 150 ft (QC): 88 Distance: 10' Gait Assistive Device: None Comments/Gait Description increase c/o dizziness with minimal activity Balance Sitting Static: Normal Sitting Dynamic: Normal Standing Static: Fair Standing Dynamic: Fair Assessment/Needs 61 y.o. female, will be seen short term by skilled PT to address functional strength and mobility to improve current LOF. Patient is currently limited by dizziness and N&V. Rehab Potential: Fair PT Registration Clerk Goals Group Home Goals PT Group Home Goals Time Frame: Oct 25, 2021 Roll Left & Right (QC): 6 Sit to Lying (QC): 6 Lying-Sitting on Side/Bed(QC): 6 Sit to Stand (QC): 6 Chair/Sxd-sl-Pemwr Xfer(QC): 6 Toilet Transfer (QC): 6 Car Transfer (QC): 6 Walk 10 feet (QC): 6 Walk 50ft with 2 Turns (QC): 6 Walk 150 ft (QC): 6 PT Plan Problem List Problem List: Activity Tolerance, Functional Strength, Safety, Balance, Gait Treatment/Plan Treatment Plan: Continue Plan of Care Treatment Plan: Education, Functional Activity Caitlyn, Functional Strength, Gait, Safety, Therapeutic Exercise Treatment Duration: Oct 25, 2021 Frequency: 6 times per week Estimated Hrs Per Day: .25 hour per day Patient and/or Family Agrees t: Yes Time/GCodes Time In: 825 Time Out: 835 Total Billed Treatment Time: 10 Total Billed Treatment 1 visit EVModC 10 min SAQIB SINGH PT Oct 13, 2021 10:27
--- NOTE | 2021-10-13 10:45 | Progress Note - Cardiology ---
Cardiology SOAP Progress Note Subjective: Continues to c/o CAMACHO and nausea and dizziness No c/o CP or palpitations Objective: I&O/Vital Signs 10/14/21 10/14/21 10/14/21 10/14/21 04:01 05:25 05:27 06:00 Temp 35.9 Pulse 58 72 76 Resp 16 24 24 B/P (MAP) 171/79 (109) 220/128 (158) 237/116 (156) Pulse Ox 97 96 96 O2 Delivery Nasal Cannula Nasal Cannula Nasal Cannula Nasal Cannula O2 Flow Rate 2.00 2.00 2.00 2.00 10/14/21 10/14/21 10/14/21 10/14/21 06:09 06:13 06:15 06:24 Pulse 74 73 75 Resp 18 19 B/P (MAP) 151/92 (99) 151/92 135/74 (90) Pulse Ox 96 96 O2 Delivery Nasal Cannula Nasal Cannula O2 Flow Rate 2.00 2.00 10/14/21 10/14/21 10/14/21 10/14/21 06:30 06:36 06:44 06:45 Pulse 79 66 70 Resp 11 28 B/P (MAP) 120/72 (81) 120/72 120/61 (92) Pulse Ox 94 95 O2 Delivery Nasal Cannula Nasal Cannula O2 Flow Rate 2.00 2.00 10/14/21 10/14/21 10/14/21 10/14/21 07:00 07:40 08:00 08:01 Temp 36.3 Pulse 67 52 Resp 15 14 B/P (MAP) 104/57 (73) 110/59 (76) Pulse Ox 94 92 O2 Delivery Nasal Cannula Nasal Cannula Nasal Cannula O2 Flow Rate 2.00 2.00 2.00 10/14/21 10/14/21 10/14/21 10/14/21 08:11 09:00 10:00 12:07 Temp 36.9 Pulse 63 61 65 Resp 14 16 20 B/P (MAP) 115/61 (79) 116/61 (79) 109/63 (78) Pulse Ox 94 93 93 95 O2 Delivery Nasal Cannula Nasal Cannula Nasal Cannula Nasal Cannula O2 Flow Rate 3.00 2.00 2.00 3.00 10/14/21 00:00 Intake Total 100 ml Output Total 875 ml Balance -775 ml Weight (Pounds): 168 Weight (Ounces): 0 Weight (Calculated Kilograms): 76.035254 Constitutional: AAO x 3, well-developed, well-nourished Respiratory: No accessory muscle use, No respiratory distress; chest expansion is symmetric, chest is bilaterally symmetric, lungs clear to auscultation Cardiovascular: regular rate-rhythm; No JVD; S1 and S2 Gastrointestional: distended; No guarding; audible bowel sounds, other (emesis) Extremities: no lower extremity edema bilateral Neurologic/Psychiatric: grossly intact (moves all extremities) Skin: No rash on exposed areas, No ulcerations on exposed areas Results/Procedures: Labs Laboratory Tests 10/14/21 04:35: White Blood Count 12.2H, Red Blood Count 3.68L, Hemoglobin 11.1L, Hematocrit 34L , Mean Corpuscular Volume 92, Mean Corpuscular Hemoglobin 30, Mean Corpuscular Hemoglobin Concent 33, Red Cell Distribution Width 14.4, Platelet Count 158, Mean Platelet Volume 9.5, Immature Granulocyte % (Auto) 1, Neutrophils (%) (Auto) 91H, Lymphocytes (%) (Auto) 6L, Monocytes (%) (Auto) 2, Eosinophils (%) (Auto) 0, Basophils (%) (Auto) 0, Neutrophils # (Auto) 11.1H, Lymphocytes # (Auto) 0.8L, Monocytes # (Auto) 0.2, Eosinophils # (Auto) 0.0, Basophils # (Auto) 0.0, Immature Granulocyte # (Auto) 0.1, Sodium Level 141, Potassium Level 3.6, Chloride Level 103, Carbon Dioxide Level 27, Anion Gap 11, Blood Urea Nitrogen 17, Creatinine 0.76, Estimat Glomerular Filtration Rate 90, BUN/Creatinine Ratio 22, Glucose Level 171H, Calcium Level 8.5, Corrected Calcium 8.7, Magnesium Level 2.8H, Total Bilirubin 0.3, Aspartate Amino Transf (AST/SGOT) 25, Alanine Aminotransferase (ALT/SGPT) 57H, Alkaline Phosphatase 42, Total Protein 6.8, Albumin 3.8 10/14/21 05:59: Bedside Blood Gas pH (LAB) 7.478H, Bedside Blood Gas pCO2 (LAB) 42.0, Bedside Blood Gas pO2 (LAB) 84, Bedside Blood Gas HCO3 (LAB) 31.2H, POC Blood Gas Total CO2 Calc 32H, Bedside Bl Gas O2 Saturation (Calc) 97, Bedside Arterial Blood Base Excess 8H Microbiology 10/12/21 MRSA Screen - Final, Complete MRSA not isolated 10/11/21 Blood Culture - Preliminary, Resulted No growth 10/11/21 Urine Culture - Final, Complete NO GROWTH A/P: Assessment: Episode of hypoxia on 10/11/21, managed by Dr Morales and diagnosed aspiration pneumonia - transiently in ICU (10/10/21), now back on the Med floor Dizziness of undetermined etiology - no evidence of carotid dz per u/s of 10-09-21 - no acute intracranial abnormality on CT of the head on 10-09-21 Headache and abdominal discomfort, managed by Dr Morales HTN - continue home medications Nausea and vomiting - management per Medical services Obesity H/o cholecystectomy and appendectomy H/o hysterectomy Plan: BP is still not well controlled despite increase of BB, Lisinopril - advise started Norvasc Management of CAMACHO and abd discomfort and hypoxia/pneumonia is with Dr Morales Monitor labs Replace electrolytes as indicated GABY CORTEZ Oct 13, 2021 10:45
--- NOTE | 2021-10-13 10:45 | Occupational Therapy Eval ---
OT Evaluation-General/PLF Medical Diagnosis Admission Date Oct 11, 2021 at 18:27 Medical Diagnosis: Dizziness Onset Date: Oct 11, 2021 Therapy Diagnosis Therapy Diagnosis: decreased ADL status Height/Weight Height (Feet): 5 Height (Inches): 2.00 Weight (Pounds): 168 Weight (Ounces): 0 Precautions Precautions/Isolations: Fall Prevention, Standard Precautions Referral Physician: Carmen Referral Reason: Evaluation/Treatment Medical History Pertinent Medical History: COPD, DM, HTN Additional Medical History KEVIN, GERD, HTN, anxiety, depression, suicide attempts, TB (1995), hypercholesterol, asthma, COPD, seizure/vertigo, migraines, DM, and tinnitus. Current History Admitted to ED with c/o n/v and dizziness for past 2 weeks. Social History Home: Single Level Current Living Status: Spouse Entry Into Home: Ramp Steps Into Home: 3 ADL-Prior Level of Function SCALE: Activities may be completed with or without assistive devices. 8-Nocnioytld-edzztvx completes the activity by him/herself with no assistance from a helper. 5-Set-up or Clean-up Assistance-helper sets up or cleans up; patient completes activity. [place] assists only prior to or following the activity. 4-Supervision or Touching Assistance-helper provides verbal cues and/or touching/steadying and/or contact guard assistance as patient completes activity. Assistance may be provided throughout the activity or intermittently. 3-Partial/Moderate Assistance-helper does LESS THAN HALF the effort. [place] lifts, holds or supports trunk or limbs, but provides less than half the effort. 2-Substantial/Maximal Assistance-helper does MORE THAN HALF the effort. [place] lifts or holds trunk or limbs and provides more than half the effort. 8-Fmaqbbcae-ysbwim does ALL the effort. Patient does none of the effort to complete the activity. Or, the assistance of 2 or more helpers is required for the patient to complete the activity. If activity was not attempted, code reason: 7-Patient Refused. 9-Not Applicable-not attempted and the patient did not perform the activity before the current illness, exacerbation or injury. 10-Not Attempted due to Environmental Limitations-(lack of equipment, weather restraints, etc.). 88-Not Attempted due to Medical Conditions or Safety Concerns. ADL PLOF Comments Pt lives at home with spouse who is w/c dependent. 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 She reports being IND with ADLs, IADLs, and functional mobility prior to n/v and dizziness. She does not use an AD, uses oxygen at home. Self Care: Independent Functional Cognition: Independent DME/Equipment: Bath Bench, Shower (walk-in) OT Current Status Subjective Pt laying supine in bed prior to OT eval/tx. Pt reports feeling nauseous and dizzy but is agreeable to OT tx. Mental Status/Objective Patient Orientation: Person, Place, Situation Attachments: IV, Oxygen Current Hand Dominance: Right Upper Extremity ROM WFL Upper Extremity Coordination WFL Upper Extremity Strength grossly 3+/5 ADL-Treatment Eating (QC): 88 (NPO) Oral Hygiene (QC): 5 (bedside setup) Other Treatments Pt laying supine in bed prior to OT eval/tx. Pt provided information about PLOF and home environment for eval. Pt transferred supine to seated EOB, SBA. Pt com pleted oral hygiene and washed her face with a washcloth seated EOB with set up assist. 2 cues required throughout tx in order to place O2 NC back on face. Pt declined OOB activities due to dizziness, c/o nausea at side of bed. Pt returned to supine in bed post tx, call light left within reach and all needs met. Education OT Patient Education: Correct positioning, Energy conservation, Exercise program, Modified ADL techniques, Progress toward Goal/Update tx plan, Purpose of tx/functional activities, Rehab process Teaching Recipient: Patient Teaching Methods: Discussion Response to Teaching: Verbalize Understanding OT Mcfp Goals Rug Renovator Goals Time Frame: Oct 24, 2021 Oral Hygiene (QC): 6 Toileting Hygiene (QC): 6 Shower/Bathe Self (QC): 6 Upper Body Dressing (QC): 6 Lower Body Dressing (QC): 6 On/Off Footwear (QC): 6 Additional Goals: 1-Demonstrate ADL Tasks, 2-Verbalize Understanding, 3- ImproveStrength/Caitlyn 1=Demonstrate adherence to instructed precautions during ADL tasks. 2=Patient will verbalize/demonstrate understanding of assistive devices/modifications for ADL. 3=Patient will improve strength/tolerance for activity to enable patient to perform ADL's. OT Education/Plan Problem List/Assessment Assessment: Decreased Activ Tolerance, Decreased UE Strength, Impaired Funct Balance, Impaired I ADL's, Impaired Self-Care Skills Discharge Recommendations Plan/Recommendations: Continue POC Treatment Plan/Plan of Care Patient would benefit from OT for education, treatment and training to promote independence in ADL's, mobility, safety and/or upper extremity function for ADL's. Plan of Care: ADL Retraining, Functional Mobility, UE Funct Exercise/Act Treatment Duration: Oct 24, 2021 Frequency: 3 times per week (3-5x/wk) Estimated Hrs Per Day: .25 hour per day Rehab Potential: Fair Time/GCodes Start Time: 10:21 Stop Time: 10:33 Total Time Billed (hr/min): 12 Billed Treatment Time 1, EVL (12') CHETNA WALLACE OT Oct 13, 2021 10:45
[2021-10-13] MEDS ORDERED: cloNIDine 0.1 MG PATCH (CATAPRES TTS) TDSY TD NR (11:00)
[2021-10-13] MEDS ORDERED: BISACODYL 10 MG SUPP (DULCOLAX) PR NR (11:00)
[2021-10-13] MEDS ORDERED: KCL 20 MEQ TAB (K-DUR) PO NR (11:00)
[2021-10-13] MEDS ORDERED: amLODIPine 5 MG (NORVASC) TAB PO NR (11:00)
[2021-10-13] MEDS: IBUPROFEN 600 MG (MOTRIN) TAB PO PRN (12:22)
[2021-10-13] MEDS: ACETAMINOPHEN 500 MG TAB (TYLENOL) PO PRN (12:22)
--- NOTE | 2021-10-13 15:24 | OPERATIVE REPORT ---
DATE OF SERVICE: 10/13/2021 PREOPERATIVE DIAGNOSES: Epigastric abdominal pain, nausea and vomiting. POSTOPERATIVE DIAGNOSIS: Slight gastritis. PROCEDURE: EGD with biopsy of the antrum. SURGEON: Danelle Moulton DO ANESTHESIA: Per [employer]SEMBLER. ESTIMATED BLOOD LOSS: None. COMPLICATIONS: None. INDICATIONS: This is a 61-year-old female with nausea, vomiting, epigastric abdominal pain. Workup has been negative radiographically. Discussed risks and benefits of EGD, which she understands and wishes to proceed. Consent was signed in the chart. DESCRIPTION OF PROCEDURE: The patient was taken to the endoscopy suite, placed in left lateral recumbent position. Timeout was performed. Scope was inserted in mouth, down the esophagus, stomach and into the duodenum without difficulty. There were no polyps, masses or ulcerations within the duodenum. Scope was slowly retracted back into the stomach where it was further insufflated. Slight gastritis appearance was present. Biopsy of the antrum was obtained. Scope was retroflexed noting no other pathology. Scope was returned to its normal position, slowly withdrawn to distal esophagus, which had normal appearance. No polyps, masses or ulcerations. Scope was slowly retracted back until completely removed, noting no other pathology. The patient tolerated procedure well without any complications. She was taken to recovery room in stable condition. RECOMMENDATIONS: The patient will continue on current medications. Await biopsy results. Job ID: [id number] DocumentID: [id number] Dictated Date: 10/13/2021 10:20:33 Case Planner Date: 10/13/2021 15:24:05 Dictated By: DANELLE MOULTON DO
--- NOTE | 2021-10-13 15:52 | Diagnostic Imaging Report ---
INDICATION: Constipation. TIME OF EXAM: 3:17 p.m. FINDINGS: No free air is detected. There are surgical clips in the gallbladder fossa. Bowel gas pattern is nonobstructed. There is some stool in the transverse colon. No significant stool load is seen. Small bowel is nondilated. No pathologic calcifications are identified. IMPRESSION: No acute abnormality is detected. Dictated by: Dictated on workstation # [id number]
[2021-10-13] MEDS: PROPRANOLOL 20 MG (INDERAL) TABLET PO SCH (16:09)
--- NOTE | 2021-10-13 17:09 | Progress Note - Cardiology ---
Cardiology SOAP Progress Note Subjective: Intermittent nausea Abd discomfort better No cp or palp or syncope or swelling No shortness of breath Gen weakness present Objective: I&O/Vital Signs 10/13/21 10/13/21 10/13/21 10/13/21 05:25 06:34 06:35 07:52 Pulse 64 65 B/P (MAP) 183/79 (113) 178/79 (112) Pulse Ox 98 O2 Delivery Nasal Cannula O2 Flow Rate 2.00 10/13/21 10/13/21 10/13/21 10/13/21 08:00 08:06 10:50 12:28 Temp 36.0 36.3 Pulse 68 65 72 Resp 19 18 B/P (MAP) 186/84 (118) 163/80 (107) 187/84 (118) Pulse Ox 98 95 O2 Delivery Nasal Cannula Nasal Cannula Nasal Cannula O2 Flow Rate 2.00 1.50 2.00 10/13/21 10/13/21 10/13/21 12:56 14:21 15:50 Temp 36.4 Pulse 77 74 Resp 20 B/P (MAP) 136/89 (105) Pulse Ox 96 96 O2 Delivery Nasal Cannula Nasal Cannula O2 Flow Rate 2.00 2.00 10/12/21 23:59 Intake Total 2600 ml Output Total 875 ml Balance 1725 ml Weight (Pounds): 168 Weight (Ounces): 0 Weight (Calculated Kilograms): 76.412143 Constitutional: AAO x 3, well-developed, well-nourished Respiratory: No accessory muscle use, No respiratory distress; chest expansion is symmetric, chest is bilaterally symmetric, lungs clear to auscultation Cardiovascular: regular rate-rhythm; No JVD; S1 and S2 Gastrointestional: distended; No guarding; audible bowel sounds, other (emesis) Extremities: no lower extremity edema bilateral Neurologic/Psychiatric: grossly intact (moves all extremities) Skin: No rash on exposed areas, No ulcerations on exposed areas Results/Procedures: Labs Laboratory Tests 10/13/21 05:30: White Blood Count 14.1H, Red Blood Count 3.71L, Hemoglobin 11.2L, Hematocrit 34L , Mean Corpuscular Volume 90, Mean Corpuscular Hemoglobin 30, Mean Corpuscular Hemoglobin Concent 33, Red Cell Distribution Width 14.2, Platelet Count 219, Mean Platelet Volume 8.2L, Immature Granulocyte % (Auto) 1, Neutrophils (%) (Auto) 89H, Lymphocytes (%) (Auto) 7L, Monocytes (%) (Auto) 2, Eosinophils (%) (Auto) 0, Basophils (%) (Auto) 0, Neutrophils # (Auto) 12.6H, Lymphocytes # (Auto) 1.0, Monocytes # (Auto) 0.3, Eosinophils # (Auto) 0.0, Basophils # (Auto) 0.0, Immature Granulocyte # (Auto) 0.2H, Sodium Level 140, Potassium Level 3.3L, Chloride Level 101, Carbon Dioxide Level 27, Anion Gap 12, Blood Urea Nitrogen 12, Creatinine 0.76, Estimat Glomerular Filtration Rate 90, BUN/Creatinine Ratio 16, Glucose Level 171H, Calcium Level 8.6, Corrected Calcium 8.8, Magnesium Level 2.7H, Total Bilirubin 0.3, Aspartate Amino Transf (AST/SGOT) 28, Alanine Aminotransferase (ALT/SGPT) 48, Alkaline Phosphatase 47, Total Protein 7.0, Albumin 3.8 Microbiology 10/11/21 Blood Culture - Preliminary, Resulted No growth Laboratory Tests 10/11/21 17:50 10/12/21 05:01 10/13/21 05:30 A/P: Assessment: Episode of hypoxia on 10/11/21, managed by Dr Morales and diagnosed aspiration pneumonia - transiently in ICU (10/10/21), now back on the Med floor Dizziness of undetermined etiology - no evidence of carotid dz per u/s of 10-09-21 - no acute intracranial abnormality on CT of the head on 10-09-21 Headache and abdominal discomfort, managed by Dr Morales HTN - continue home medications Nausea and vomiting - management per Medical services Obesity H/o cholecystectomy and appendectomy H/o hysterectomy Plan: BP is still not well controlled despite increase of BB, Lisinopril - advise started Norvasc Management of CAMACHO and abd discomfort and hypoxia/pneumonia is with Dr Morales Monitor labs Replace electrolytes as indicated ARLENE GREENWOOD MD FACP FAC CCDS Oct 13, 2021 17:09
[2021-10-13] MEDS: polyethylene glycoL POWDER 17 GM (MIRALAX) PACK PO SCH (20:33)
[2021-10-13] MEDS: AtorvaSTATin TABLET 10 MG TABLET PO SCH (20:33)
[2021-10-13] MEDS: traZODone 100 MG (DESYREL) TAB PO SCH (20:33)
[2021-10-14] VITALS (15 sets, daily range): BP systolic 104–237; BP diastolic 57–128
[2021-10-14] MEDS: cloNIDine 0.1 MG (CATAPRES) TAB PO PRN (04:39)
[2021-10-14] MEDS: hydrALAZINE (APESOLINE) 20 MG/ML VIAL IV PRN (05:23)
[2021-10-14 05:26] LABS: BASOPHILS % (AUTO) 0 % (0-10); EOSINOPHILS % (AUTO) 0 % (0-10); HEMATOCRIT 34 % (35-52); HEMOGLOBIN 11.1 g/dL (11.5-16.0); LYMPHOCYTES # (AUTO) 0.8 10^3/uL (1.0-4.0); LYMPHOCYTES % (AUTO) 6 % (12-44); MEAN CORPUSCULAR HEMOGLOBIN 30 pg (25-34); MEAN CORPUSCULAR HGB CONC 33 g/dL (32-36); MEAN CORPUSCULAR VOLUME 92 fL (80-99); MEAN PLATELET VOLUME 9.5 fL (9.0-12.2); MONOCYTES # (AUTO) 0.2 10^3/uL (0.0-1.0); MONOCYTES % (AUTO) 2 % (0-12); NEUTROPHILS # (AUTO) 11.1 10^3/uL (1.8-7.8); NEUTROPHILS % (AUTO) 91 % (42-75); PLATELET COUNT 158 10^3/uL (130-400); WHITE BLOOD COUNT 12.2 10^3/uL (4.3-11.0)
[2021-10-14] MEDS ORDERED: NITROGLYCERIN 2% OINT 1 GM UNIT DOSE PACKET TOP ONE (05:30)
[2021-10-14] MEDS ORDERED: amLODIPine 5 MG (NORVASC) TAB PO ONE (05:30)
[2021-10-14] MEDS ORDERED: FUROSEMIDE 40 MG/4 ML INJ (LASIX) IVP ONE (05:30)
[2021-10-14] MEDS: DICYCLOMINE 10 MG (BENTYL) CAP PO SCH ×4 (05:43→20:40)
[2021-10-14] MEDS: SUCRALFATE 1 GM (CARAFATE) TAB PO SCH ×4 (05:43→20:40)
[2021-10-14] MEDS ORDERED: niCARdipine IV 50 MG in NS (IVPB) 230 ML IV SCH (05:45)
[2021-10-14 05:51] LABS: ALBUMIN 3.8 GM/DL (3.2-4.5); POTASSIUM 3.6 MMOL/L (3.6-5.0)
[2021-10-14 05:53] LABS: CALCIUM 8.5 MG/DL (8.5-10.1)
[2021-10-14 05:54] LABS: TOTAL PROTEIN 6.8 GM/DL (6.4-8.2)
[2021-10-14 05:55] LABS: BILIRUBIN,TOTAL 0.3 MG/DL (0.1-1.0)
[2021-10-14 05:57] LABS: CREATININE SERUM 0.76 MG/DL (0.60-1.30)
[2021-10-14 06:00] LABS: MAGNESIUM 2.8 MG/DL (1.6-2.4)
[2021-10-14] MEDS ORDERED: niCARdipine IV FOR DRIP 50 MG KIT ONE (06:04)
[2021-10-14] MEDS ORDERED: NS (IVPB) 250 ML ONE (06:05)
[2021-10-14] MEDS: metroNIDAZOLE 500MG/100ML IVPB 100 ML IV SCH ×3 (06:13→21:52)
--- NOTE | 2021-10-14 06:17 | Tele-ICU Progress Note ---
Subjective Date Seen by a Provider: Oct 14, 2021 Time Seen by a Provider: 06:00 Subjective/Events-last exam This virtual visit was conducted using real time audio/video. Thank you for asking us to see this patient for respiratory insufficiency due to aspiration during hypoxic code blue on 4th floor Recent events:readmitted to ICU 10/14/21 w recurrent hypertensive urgency. PMH:asthma/COPD, KEVIN, RLS. PE: Obese, undistressed. 185/107 O2 sat 97% on NC 2 LPM.. HEENT: No obvious masses, adenopathy or JVD. Chest: clear to auscultation. Diminished. CV: RRR S1 S2 No murmur or added sounds. Abd: Non-tender. Bowel sounds Y. : Unremarkable. Osorio Y. [employer] PATTERN MAKER/psychiatric: Grossly intact. No obvious focal findings. Extremities: Tr edema. Capillary refill < 3 seconds. Skin: unremarkable. Results: Elevated WCC 12.3, BG 171. B.478/42/84 on 2 LPM. CXR: Clear, hyperinflated. Available chart/ vitals / labs / images reviewed. Video assessment done using teleICU camera, rest of exam as per RN. A/P: Respiratory insufficiency: Continue present management with O2, alb., singulair. Monitor for increasing oxygenation needs and/or need for intubation. Critical Care: critically ill patient. Cont. Cardene drip, abx, metop., lisinop., PPI, abilify, statin, clonidine, norvasc, maren. Discussed with RN Yamile. Asked RN to reach out to eICU if any questions or concerns later. Time spent with patient/coordination of care with other health professionals (mins): 15 Sepsis Event Evaluation Height, Weight, BMI Height: 5'2.00" Weight: 168lbs. 0oz. 76.501344wi; 41.03 BMI Method:Stated Focused Exam Lactate Level 10/11/21 17:50: Lactic Acid Level 0.97 Exam Exam Patient acknowledged, consented, and participated in this virtual visit which was conducted using real time audio/video Vital Signs Date Time Temp Pulse Resp B/P (MAP) Pulse Ox O2 Delivery O2 Flow Rate FiO2 10/14/21 04:01 35.9 58 16 171/79 (109) 97 Nasal Cannula 2.00 10/14/21 01:00 56 10/14/21 00:13 35.8 74 18 139/77 (97) 96 Nasal Cannula 2.00 10/13/21 20:13 Nasal Cannula 2.00 10/13/21 19:49 36.6 74 20 142/73 (96) 95 Nasal Cannula 2.00 10/13/21 19:10 98 Nasal Cannula 2.00 10/13/21 19:00 61 10/13/21 15:50 36.4 74 20 136/89 (105) 96 Nasal Cannula 2.00 10/13/21 14:21 96 Nasal Cannula 2.00 10/13/21 12:56 77 10/13/21 12:28 36.3 72 18 187/84 (118) 95 Nasal Cannula 2.00 10/13/21 10:50 65 163/80 (107) 10/13/21 08:06 Nasal Cannula 1.50 10/13/21 08:00 36.0 68 19 186/84 (118) 98 Nasal Cannula 2.00 10/13/21 07:52 98 Nasal Cannula 2.00 10/13/21 06:35 65 10/13/21 06:34 178/79 (112) I & O 10/14/21 07:00 Intake Total 300 ml Output Total 875 ml Balance -575 ml Height & Weight Height: 5'2.00" Weight: 168lbs. 0oz. 76.218635tt; 41.03 BMI Method:Stated General Appearance: Anxious, Chronically ill, Obese HEENT: PERRL/EOMI, TMs Normal, Pharynx Normal Neck: Non Tender, Supple Respiratory: Lungs Clear, Normal Breath Sounds Cardiovascular: Regular Rate, Rhythm Capillary Refill: Less Than 3 Seconds Gastrointestinal: soft, tenderness (Epigastric area) Extremity: Normal Range of Motion, Non Tender Neurologic/Psychiatric: Alert, Oriented x3 Skin: Normal Color, Warm/Dry Lymphatic: No Adenopathy Results Lab Laboratory Tests 10/13/21 05:30 10/14/21 04:35 Assessment/Plan Assessment/Plan See free text Critical Care: Critically Ill Patient ISMAEL BALDERAS MD Oct 14, 2021 06:17
[2021-10-14] MEDS: ONDANSETRON 4 MG/2 ML (SDV) Z0FRAN IVP PRN (06:43)
--- NOTE | 2021-10-14 06:45 | Occ Therapy Progress Note ---
Therapy Progress Note Due to decline in medical status, OT to dismiss services at this time. Pt will need new orders when medically stable and able to actively participate in skilled therapy. KOURTNEY ELDER Oct 14, 2021 06:45
--- NOTE | 2021-10-14 07:00 | Progress Note - Hospitalist ---
Subjective HPI/CC On Admission Date Seen by Provider: Oct 14, 2021 Time Seen by Provider: 09:30 CC: Dizziness HPI: This is a 61 yr old female. She presented with dizziness for the past 2 weeks. She is also complaining of abdominal pain and she is having a lot of nausea and vomiting. I did consult Dr. Moulton. I ordered Amylase and Lipase to today's labs. Acute abdominal series x-ray was ordered. Due to the mid epigastri c pain I did go ahead and order an EKG, ECHO, and Dr. Lawrence consult. I reviewed ER workup. Subjective/Events-last exam Pt required ICU transfer due to bp of 230/130 Cardene drip initiated with good results Promethazine will be started for headaches, she takes that at home and it helps Checked meds and labs Very difficult to cope PT and OT will be initiated getting out of bed Review of Systems General: Fatigue HEENT: Head Aches Gastrointestinal: Nausea Focused Exam Lactate Level Objective Exam Vital Signs Vital Signs Date Time Temp Pulse Resp B/P (MAP) Pulse Ox O2 Delivery O2 Flow Rate FiO2 10/14/21 20:55 94 Nasal Cannula 2.00 10/14/21 19:12 36.8 55 16 119/64 (82) 10/12/21 04:00 30 Capillary Refill : Less Than 3 Seconds General Appearance: No Apparent Distress, WD/WN, Chronically ill, Obese Respiratory: Lungs Clear, Normal Breath Sounds Cardiovascular: Regular Rate, Rhythm Neurologic/Psychiatric: Alert, Oriented x3, No Motor/Sensory Deficits, Normal Mood/Affect Results/Procedures Lab Laboratory Tests 10/14/21 04:35 Patient resulted labs reviewed. Assessment/Plan Assessment and Plan Assess & Plan/Chief Complaint Assessment: s/p respiratory distress due to aspiration due to CO2 narcosis from narcotic use and morbid obesity and high risk for KEVIN/OHS Aspiration PNA Dizziness Headache N/V Mid-epigastric abdominal pain Obesity Depression Atypical chest pain consulted Cardiology Emotional problems with difficulty coping Plan: Consult Cardiology and surgery Xray abd Check amylase and lipase 10/11/21: CT reviewed Appreciate Surgery and Cardiology 10/12/21: IV abx DC adam Move to 4th floor 10/13/2021: EGD Ambulate Supportive care 10/14: Move back to floor Monitor BP Critical Care Critically Ill Patient Diagnosis/Problems Diagnosis/Problems (1) Aspiration pneumonia (2) Pre-syncope (3) Nausea & vomiting Status: Acute Qualifiers: Vomiting type: unspecified Qualified Codes: R11.2 - Nausea with vomiting, unspecified (4) Uncontrolled hypertension (5) Dizziness Status: Acute MANI THORNTON DO Oct 14, 2021 07:00
--- NOTE | 2021-10-14 07:27 | Physical Therapy Progress Note ---
Therapy Progress Note Patient transferred to ICU due to declined in medical status. PT will continue to monitor patient status. New orders will be required. SAQIB SINGH PT Oct 14, 2021 07:27
[2021-10-14] MEDS: RT-ALBUTEROL SULF 2.5 MG/3 ML PRE-MIX VIAL INH SCH ×3 (08:11→20:54)
[2021-10-14] MEDS: CEFEPIME INJECTION 2,000 MG in NS (IVPB) 50 ML IV SCH ×2 (08:29→20:40)
[2021-10-14] MEDS: PANTOPRAZOLE 40 MG (PROTONIX) TAB PO SCH (08:29)
[2021-10-14] MEDS: LORATADINE (CLARITIN) 10 MG TAB PO SCH (08:29)
[2021-10-14] MEDS: ENOXAPARIN 40 MG/0.4 ML (LOVENOX) SYR SC SCH (08:29)
[2021-10-14] MEDS: SERTRALINE 100 MG (ZOLOFT) TAB PO SCH (08:29)
[2021-10-14] MEDS: MONTELUKAST 10 MG (SINGULAIR) TAB PO SCH (08:29)
[2021-10-14] MEDS: PROPRANOLOL 20 MG (INDERAL) TABLET PO SCH ×2 (09:55→16:34)
[2021-10-14] MEDS: meTOprolol SUCCINATE 100 MG (TOPROL XL) TAB PO SCH (09:55)
[2021-10-14] MEDS: lisINopril 40 MG (PRINIVIL) TABLET PO SCH (09:55)
[2021-10-14] MEDS: polyethylene glycoL POWDER 17 GM (MIRALAX) PACK PO SCH ×3 (09:55→20:40)
[2021-10-14] MEDS: amLODIPine 5 MG (NORVASC) TAB PO SCH (09:55)
[2021-10-14] MEDS ORDERED: PROMETHAZINE 25 MG (PHENERGAN) TAB PO PRN (10:00)
[2021-10-14] MEDS ORDERED: PROMETHAZINE 25 MG (PHENERGAN) TAB PO NR (10:03)
--- NOTE | 2021-10-14 10:15 | Tele-ICU Progress Note ---
Progress Note f/up on consult done last night Available chart/ vitals / labs / Images reviewed Video assessment done using teleICU camera Discussed with RN. CPM Focused Exam Lactate Level 10/11/21 17:50: Lactic Acid Level 0.97 Height, Weight, BMI Height: 5'2.00" Weight: 168lbs. 0oz. [id number]; 41.03 BMI Method:Stated ULISES BARNARD MD Oct 14, 2021 10:15
--- NOTE | 2021-10-14 11:36 | Physical Therapy Evaluation ---
PT Evaluation-General Medical Diagnosis Admission Date Oct 11, 2021 at 18:27 Medical Diagnosis: Dizziness Onset Date: Oct 11, 2021 Therapy Diagnosis Therapy Diagnosis: debility/weakness Height/Weight Height (Feet): 5 Height (Inches): 2.00 Weight (Pounds): 168 Weight (Ounces): 0 Precautions Precautions/Isolations: Fall Prevention, Standard Precautions Referral Physician: Carmen Reason for Referral: Evaluation/Treatment Medical History Pertinent Medical History: COPD, DM, HTN Additional Medical History TB Current History patient transferred to ICU due to elevated BP. Currently stable and returned to [facility] medical Reviewed History: Yes Social History Home: Single Level Current Living Status: Spouse Entry Into Home: Ramp PT Steps Into Home: 3 Prior Prior Level of Function SCALE: Activities may be completed with or without assistive devices. 5-Hmhxmhtwvr-oovssxy completes the activity by him/herself with no assistance from a helper. 5-Set-up or Clean-up Assistance-helper sets up or cleans up; patient completes activity. [place] assists only prior to or following the activity. 4-Supervision or Touching Assistance-helper provides verbal cues and/or touching/steadying and/or contact guard assistance as patient completes activity. Assistance may be provided throughout the activity or intermittently. 3-Partial/Moderate Assistance-helper does LESS THAN HALF the effort. [place] lifts, holds or supports trunk or limbs, but provides less than half the effort. 2-Substantial/Maximal Assistance-helper does MORE THAN HALF the effort. [place] lifts or holds trunk or limbs and provides more than half the effort. 8-Qfaobvzlz-garotg does ALL the effort. Patient does none of the effort to complete the activity. Or, the assistance of 2 or more helpers is required for the patient to complete the activity. If activity was not attempted, code reason: 7-Patient Refused. 9-Not Applicable-not attempted and the patient did not perform the activity before the current illness, exacerbation or injury. 10-Not Attempted due to Environmental Limitations-(lack of equipment, weather restraints, etc.). 88-Not Attempted due to Medical Conditions or Safety Concerns. Bed Mobility: 6 Transfers (B,C,W/C): 6 Gait: 6 Indoor Mobility (Ambulation): Independent Prior Devices Use: None PT Evaluation-Current Subjective Patient is very agreeable to participate with PT. No c/o dizziness or nausea at this time. Objective Patient Orientation: Normal For Age Attachments: Oxygen, Osorio Catheter ROM/Strength ROM Lower Extremities bilateral LE WFL Strength Lower Extremities 4/5 grossly bilateral LE Integumentary/Posture Bowel Incontinence: No Bladder Incontinence: Osorio Cath Posture WFL Neuromuscular (Tone, Coordination, Reflexes) grossly intact Sensory Vision: Functional Hearing: Functional Hand Dominance: Right Transfers Lying to Sitting/Side of Bed(Q: 6 Sit to Stand (QC): 4 Chair/Cwc-xi-Btjvx Xfer(QC): 4 Gait Mode of Locomotion: Walk Anticipated Mode of Locomotion: Walk Walk 10 feet (QC): 4 Walk 50 ft with 2 Turns(QC): 4 Walk 150 ft (QC): 4 Distance: 300' Gait Assistive Device: None Comments/Gait Description did utilize hand rail for safety/safe and functional gait sequence Balance Sitting Static: Normal Sitting Dynamic: Normal Standing Static: Fair Standing Dynamic: Fair Assessment/Needs 61 y.o. female, will be seen short term by skilled PT to address functional mobility and strength to ensure safe return to home at maximum LOF. Rehab Potential: Fair PT Medical Physics Researcher Goals Snf Goals PT Medical Physics Researcher Goals Time Frame: Oct 25, 2021 Roll Left & Right (QC): 6 Sit to Lying (QC): 6 Lying-Sitting on Side/Bed(QC): 6 Sit to Stand (QC): 6 Chair/Zgy-yt-Jvrfv Xfer(QC): 6 Toilet Transfer (QC): 6 Car Transfer (QC): 6 Walk 10 feet (QC): 6 Walk 50ft with 2 Turns (QC): 6 Walk 150 ft (QC): 6 PT Plan Problem List Problem List: Activity Tolerance, Functional Strength, Safety, Balance, Gait, Transfer Treatment/Plan Treatment Plan: Continue Plan of Care Treatment Plan: Education, Functional Activity Caitlyn, Functional Strength, Gait, Safety, Therapeutic Exercise Treatment Duration: Oct 25, 2021 Frequency: 6 times per week Estimated Hrs Per Day: .25 hour per day Patient and/or Family Agrees t: Yes Time/GCodes Time In: 1113 Time Out: 1127 Total Billed Treatment Time: 14 Total Billed Treatment 1 visit EVModC 14 min SAQIB SINGH PT Oct 14, 2021 11:36
--- NOTE | 2021-10-14 11:57 | Occupational Therapy Eval ---
OT Evaluation-General/PLF Medical Diagnosis Admission Date Oct 11, 2021 at 18:27 Medical Diagnosis: Dizziness Onset Date: Oct 11, 2021 Therapy Diagnosis Therapy Diagnosis: reduced endurance Height/Weight Height (Feet): 5 Height (Inches): 2.00 Weight (Pounds): 168 Weight (Ounces): 0 Precautions Precautions/Isolations: Fall Prevention, Standard Precautions Referral Physician: Carmen Referral Reason: Evaluation/Treatment Medical History Pertinent Medical History: COPD, DM, HTN Current History Originally admitted to ED with c/o n/v and dizziness for past 2 weeks. Patient transferred to ICU due to elevated BP. Currently stable and returned to [address] [place] [phone]. Per patient, she lives at home with spouse who is w/c dependent (able to transfer by self). 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 She reports being IND with ADLs, IADLs, and functional mobility prior to n/v and dizziness. She does not use an AD, uses 2L oxygen at home. Reviewed History: Yes Social History Home: Single Level Current Living Status: Spouse Entry Into Home: Ramp Steps Into Home: 3 ADL-Prior Level of Function SCALE: Activities may be completed with or without assistive devices. 5-Dhmzqkkzzy-dxsqysj completes the activity by him/herself with no assistance from a helper. 5-Set-up or Clean-up Assistance-helper sets up or cleans up; patient completes activity. [place] assists only prior to or following the activity. 4-Supervision or Touching Assistance-helper provides verbal cues and/or touching/steadying and/or contact guard assistance as patient completes activity. Assistance may be provided throughout the activity or intermittently. 3-Partial/Moderate Assistance-helper does LESS THAN HALF the effort. [place] lifts, holds or supports trunk or limbs, but provides less than half the effort. 2-Substantial/Maximal Assistance-helper does MORE THAN HALF the effort. [place] lifts or holds trunk or limbs and provides more than half the effort. 4-Cmubzegtj-qalnzr does ALL the effort. Patient does none of the effort to complete the activity. Or, the assistance of 2 or more helpers is required for the patient to complete the activity. If activity was not attempted, code reason: 7-Patient Refused. 9-Not Applicable-not attempted and the patient did not perform the activity before the current illness, exacerbation or injury. 10-Not Attempted due to Environmental Limitations-(lack of equipment, weather restraints, etc.). 88-Not Attempted due to Medical Conditions or Safety Concerns. Self Care: Independent Functional Cognition: Independent DME/Equipment: Bath Bench, Shower Drive Self: Yes OT Current Status Subjective Pt denies pain, reports feeling better. She states she is still NPO and is just hungry Appearance Pt returned to sitting in recliner, all needs within reach Mental Status/Objective Patient Orientation: Person, Place, Situation Attachments: Adam Catheter, Oxygen (2L) Current Hand Dominance: Right Upper Extremity ROM WNL Upper Extremity Strength 4/5 grossly ADL-Treatment Eating (QC): 88 (NPO) Oral Hygiene (QC): 5 Lower Body Dressing (QC): 4 (per clinical judgment) On/Off Footwear (QC): 4 Toileting Hygiene (QC): 4 Pt sitting in recliner at OT arrival. BP: 109/63. Extra effort to reach feet in order to don bilateral socks but no assistance required. She stood and ambulated to/from bathroom with SBA, No AD utilized. Min verbal cues for attention/awareness to O2 tubing. She was able to transfer on/off toilet without difficulty. Pt currently with adam catheter but able to demonstrate ability to reach pankaj area if needed. No clothing management performed however anticipate pt able to perform without assistance. Pt does appear SOB after minimal activity and requires a sitting rest break to recover. No c/o dizziness or n/v throughout treatment. Pt could benefit from short term OT to address impaired endurance, UE strength and energy conservation strategies. Education OT Patient Education: Energy conservation, Purpose of tx/functional activities, Rehab process, Safety issues Teaching Recipient: Patient Teaching Methods: Discussion Response to Teaching: Verbalize Understanding, Return Demonstration, Reinforcement Needed OT Chemical Equipment Sales Engineer Goals Chemical Equipment Sales Engineer Goals Time Frame: Oct 24, 2021 Oral Hygiene (QC): 6 Toileting Hygiene (QC): 6 Shower/Bathe Self (QC): 6 Upper Body Dressing (QC): 6 Lower Body Dressing (QC): 6 On/Off Footwear (QC): 6 Additional Goals: 1-Demonstrate ADL Tasks, 2-Verbalize Understanding, 3- ImproveStrength/Caitlyn 1=Demonstrate adherence to instructed precautions during ADL tasks. 2=Patient will verbalize/demonstrate understanding of assistive devices/modifications for ADL. 3=Patient will improve strength/tolerance for activity to enable patient to perform ADL's. OT Education/Plan Problem List/Assessment Assessment: Decreased Activ Tolerance, Decreased UE Strength, Impaired I ADL's, Impaired Self-Care Skills Discharge Recommendations Plan/Recommendations: Continue POC Therapy Discharge Recommendati: Home & Family Treatment Plan/Plan of Care Treatment,Training & Education: Yes Patient would benefit from OT for education, treatment and training to promote independence in ADL's, mobility, safety and/or upper extremity function for ADL's. Plan of Care: ADL Retraining, Functional Mobility, UE Funct Exercise/Act Treatment Duration: Oct 24, 2021 Frequency: 3 times per week (3-5x/wk) Estimated Hrs Per Day: .25 hour per day Rehab Potential: Fair Time/GCodes Start Time: 11:39 Stop Time: 11:48 Total Time Billed (hr/min): 9 Billed Treatment Time 1 visit Christine Michelle OT Oct 14, 2021 11:57
--- NOTE | 2021-10-14 13:10 | Progress Note - Cardiology ---
Cardiology SOAP Progress Note Subjective: Lying in bed No c/o CAMACHO, CP of SOB No c/o abdominal pain Transferred to the ICU overnight d/t uncontrolled HTN necessitating Cardene gtt - off gtt at this time and transferred back to 4th floor Objective: I&O/Vital Signs 10/15/21 10/15/21 10/15/21 10/15/21 00:15 01:00 04:00 07:00 Temp 36.7 36.2 Pulse 54 52 50 52 Resp 20 20 B/P (MAP) 117/56 (76) 113/65 (81) Pulse Ox 94 95 O2 Delivery Nasal Cannula Nasal Cannula O2 Flow Rate 1.00 1.00 10/15/21 10/15/21 07:18 09:13 Temp 36.7 Pulse 58 Resp 20 B/P (MAP) 111/68 (82) Pulse Ox 94 95 O2 Delivery Nasal Cannula Nasal Cannula O2 Flow Rate 1.00 2.00 10/15/21 00:00 Intake Total 0 ml Output Total 225 ml Balance -225 ml Weight (Pounds): 168 Weight (Ounces): 0 Weight (Calculated Kilograms): 76.124456 Constitutional: AAO x 3, well-developed, well-nourished Respiratory: No accessory muscle use, No respiratory distress; chest expansion is symmetric, chest is bilaterally symmetric, lungs clear to auscultation Cardiovascular: regular rate-rhythm; No JVD; S1 and S2 Gastrointestional: distended; No guarding; audible bowel sounds, other (emesis) Extremities: no lower extremity edema bilateral Neurologic/Psychiatric: grossly intact (moves all extremities) Skin: No rash on exposed areas, No ulcerations on exposed areas Results/Procedures: Labs Laboratory Tests 10/15/21 08:53: White Blood Count 9.3, Red Blood Count 3.65L, Hemoglobin 11.0L, Hematocrit 34L, Mean Corpuscular Volume 92, Mean Corpuscular Hemoglobin 30, Mean Corpuscular Hemoglobin Concent 33, Red Cell Distribution Width 14.4, Platelet Count 183, Mean Platelet Volume 8.4L, Immature Granulocyte % (Auto) 1, Neutrophils (%) (Auto) 68, Lymphocytes (%) (Auto) 25, Monocytes (%) (Auto) 6, Eosinophils (%) (Auto) 0, Basophils (%) (Auto) 0, Neutrophils # (Auto) 6.3, Lymphocytes # (Auto) 2.3, Monocytes # (Auto) 0.6, Eosinophils # (Auto) 0.0, Basophils # (Auto) 0.0, Immature Granulocyte # (Auto) 0.1, Sodium Level 142, Potassium Level 3.2L, Chloride Level 103, Carbon Dioxide Level 29, Anion Gap 10, Blood Urea Nitrogen 24H, Creatinine 0.82, Estimat Glomerular Filtration Rate 82, BUN/Creatinine Ratio 29, Glucose Level 98, Calcium Level 8.1L, Corrected Calcium 8.6, Total Bilirubin 0.4, Aspartate Amino Transf (AST/SGOT) 27, Alanine Aminotransferase (ALT/SGPT) 52, Alkaline Phosphatase 40, Total Protein 6.0L, Albumin 3.4 Microbiology 10/14/21 MRSA Screen - Final, Complete MRSA not isolated 10/11/21 Blood Culture - Preliminary, Resulted Positive; See Report 10/11/21 Urine Culture - Final, Complete NO GROWTH A/P: Assessment: Episode of hypoxia on 10/11/21, managed by Dr Morales and diagnosed aspiration pneumonia - transiently in ICU (10/10/21), now back on the Med floor Dizziness of undetermined etiology - no evidence of carotid dz per u/s of 10-09-21 - no acute intracranial abnormality on CT of the head on 10-09-21 Headache and abdominal discomfort, managed by Dr Morales HTN - continue home medications Nausea and vomiting - management per Medical services Obesity H/o cholecystectomy and appendectomy H/o hysterectomy Plan: BP controlled at this time - continue current regimen Management of CAMACHO and abd discomfort and hypoxia/pneumonia is with Dr Morales Monitor labs Replace electrolytes as indicated GABY CORTEZ [facility] Oct 14, 2021 13:10
[2021-10-14] MEDS: ACETAMINOPHEN 500 MG TAB (TYLENOL) PO PRN (15:19)
[2021-10-14] MEDS ORDERED: MAGNESIUM CITRATE 300 ML BTL PO NR (16:45)
--- NOTE | 2021-10-14 17:48 | Progress Note - Cardiology ---
Cardiology SOAP Progress Note Subjective: No cp or palp or syncope since admission No shortness of breath No swelling No n/v/d Objective: I&O/Vital Signs 10/14/21 10/14/21 10/14/21 10/14/21 06:00 06:09 06:13 06:15 Pulse 74 73 Resp 18 19 B/P (MAP) 151/92 (99) 151/92 135/74 (90) Pulse Ox 96 96 O2 Delivery Nasal Cannula Nasal Cannula Nasal Cannula O2 Flow Rate 2.00 2.00 2.00 10/14/21 10/14/21 10/14/21 10/14/21 06:24 06:30 06:36 06:44 Pulse 75 79 66 Resp 11 B/P (MAP) 120/72 (81) 120/72 Pulse Ox 94 O2 Delivery Nasal Cannula O2 Flow Rate 2.00 10/14/21 10/14/21 10/14/21 10/14/21 06:45 07:00 07:40 08:00 Temp 36.3 Pulse 70 67 52 Resp 28 15 14 B/P (MAP) 120/61 (92) 104/57 (73) 110/59 (76) Pulse Ox 95 94 92 O2 Delivery Nasal Cannula Nasal Cannula Nasal Cannula O2 Flow Rate 2.00 2.00 2.00 10/14/21 10/14/21 10/14/21 10/14/21 08:01 08:11 09:00 10:00 Pulse 63 61 Resp 14 16 B/P (MAP) 115/61 (79) 116/61 (79) Pulse Ox 94 93 93 O2 Delivery Nasal Cannula Nasal Cannula Nasal Cannula Nasal Cannula O2 Flow Rate 2.00 3.00 2.00 2.00 10/14/21 10/14/21 10/14/21 12:07 14:55 15:17 Temp 36.9 36.9 Pulse 65 73 Resp 20 20 B/P (MAP) 109/63 (78) 131/67 (88) Pulse Ox 95 94 91 O2 Delivery Nasal Cannula Nasal Cannula Nasal Cannula O2 Flow Rate 3.00 2.00 2.00 10/14/21 00:00 Intake Total 100 ml Output Total 875 ml Balance -775 ml Weight (Pounds): 168 Weight (Ounces): 0 Weight (Calculated Kilograms): 76.892162 Constitutional: AAO x 3, well-developed, well-nourished Respiratory: No accessory muscle use, No respiratory distress; chest expansion is symmetric, chest is bilaterally symmetric, lungs clear to auscultation Cardiovascular: regular rate-rhythm; No JVD; S1 and S2 Gastrointestional: distended; No guarding; audible bowel sounds, other (emesis) Extremities: no lower extremity edema bilateral Neurologic/Psychiatric: grossly intact (moves all extremities) Skin: No rash on exposed areas, No ulcerations on exposed areas Results/Procedures: Labs Laboratory Tests 10/14/21 04:35: White Blood Count 12.2H, Red Blood Count 3.68L, Hemoglobin 11.1L, Hematocrit 34L , Mean Corpuscular Volume 92, Mean Corpuscular Hemoglobin 30, Mean Corpuscular Hemoglobin Concent 33, Red Cell Distribution Width 14.4, Platelet Count 158, Mean Platelet Volume 9.5, Immature Granulocyte % (Auto) 1, Neutrophils (%) (Auto) 91H, Lymphocytes (%) (Auto) 6L, Monocytes (%) (Auto) 2, Eosinophils (%) (Auto) 0, Basophils (%) (Auto) 0, Neutrophils # (Auto) 11.1H, Lymphocytes # (Auto) 0.8L, Monocytes # (Auto) 0.2, Eosinophils # (Auto) 0.0, Basophils # (Auto) 0.0, Immature Granulocyte # (Auto) 0.1, Sodium Level 141, Potassium Level 3.6, Chloride Level 103, Carbon Dioxide Level 27, Anion Gap 11, Blood Urea Nitrogen 17, Creatinine 0.76, Estimat Glomerular Filtration Rate 90, BUN/Creatinine Ratio 22, Glucose Level 171H, Calcium Level 8.5, Corrected Calcium 8.7, Magnesium Level 2.8H, Total Bilirubin 0.3, Aspartate Amino Transf (AST/SGOT) 25, Alanine Aminotransferase (ALT/SGPT) 57H, Alkaline Phosphatase 42, Total Protein 6.8, Albumin 3.8 10/14/21 05:59: Bedside Blood Gas pH (LAB) 7.478H, Bedside Blood Gas pCO2 (LAB) 42.0, Bedside Blood Gas pO2 (LAB) 84, Bedside Blood Gas HCO3 (LAB) 31.2H, POC Blood Gas Total CO2 Calc 32H, Bedside Bl Gas O2 Saturation (Calc) 97, Bedside Arterial Blood Base Excess 8H Microbiology 10/12/21 MRSA Screen - Final, Complete MRSA not isolated 10/11/21 Blood Culture - Preliminary, Resulted No growth 10/11/21 Urine Culture - Final, Complete NO GROWTH A/P: Assessment: Episode of hypoxia on 10/11/21, managed by Dr Morales and diagnosed aspiration pneumonia - transiently in ICU (10/10/21), now back on the Med floor Dizziness of undetermined etiology - no evidence of carotid dz per u/s of 10-09-21 - no acute intracranial abnormality on CT of the head on 10-09-21 Headache and abdominal discomfort, managed by Dr Morales HTN - continue home medications Nausea and vomiting - management per Medical services Obesity H/o cholecystectomy and appendectomy H/o hysterectomy Plan: Symptoms are much improved as is her bp - continue current regimen Management of CAMACHO and abd discomfort and hypoxia/pneumonia is with Dr Morales Monitor labs Replace electrolytes as indicated ARLENE GREENWOOD MD FACP FAC [facility] Oct 14, 2021 17:48
[2021-10-14] MEDS: AtorvaSTATin TABLET 10 MG TABLET PO SCH (20:40)
[2021-10-14] MEDS: traZODone 100 MG (DESYREL) TAB PO SCH (21:52)
--- NOTE | 2021-10-14 22:29 | Progress Note - Surgery ---
Subjective Date Seen by a Provider: Oct 14, 2021 Time Seen by a Provider: 16:27 Subjective/Events-last exam Minimal patient currently NPO. Patient states that she is doing well. Her pain is improved. Only minimal to moderate. She had a couple bouts of diarrhea yesterday and this was starting to help. Patient had a KUB done yesterday which demonstrated some stool within the transverse colon. She has not had as much nausea or vomiting. She is wanting food. Denies any nausea vomiting fever sweats chills shortness of breath or chest pain. Objective Exam Vital Signs Date Time Temp Pulse Resp B/P (MAP) Pulse Ox O2 Delivery O2 Flow Rate FiO2 10/14/21 20:55 94 Nasal Cannula 2.00 10/14/21 19:12 36.8 55 16 119/64 (82) 91 Nasal Cannula 2.00 10/14/21 19:00 52 10/14/21 15:17 36.9 73 20 131/67 (88) 91 Nasal Cannula 2.00 10/14/21 14:55 94 Nasal Cannula 2.00 10/14/21 12:07 36.9 65 20 109/63 (78) 95 Nasal Cannula 3.00 10/14/21 10:00 61 16 116/61 (79) 93 Nasal Cannula 2.00 10/14/21 09:00 63 14 115/61 (79) 93 Nasal Cannula 2.00 10/14/21 08:11 94 Nasal Cannula 3.00 10/14/21 08:01 Nasal Cannula 2.00 10/14/21 08:00 52 14 110/59 (76) 92 Nasal Cannula 2.00 10/14/21 07:40 36.3 10/14/21 07:00 67 15 104/57 (73) 94 Nasal Cannula 2.00 10/14/21 06:45 70 28 120/61 (92) 95 Nasal Cannula 2.00 10/14/21 06:44 120/72 10/14/21 06:36 66 10/14/21 06:30 79 11 120/72 (81) 94 Nasal Cannula 2.00 10/14/21 06:24 75 10/14/21 06:15 73 19 135/74 (90) 96 Nasal Cannula 2.00 10/14/21 06:13 151/92 10/14/21 06:09 74 18 151/92 (99) 96 Nasal Cannula 2.00 10/14/21 06:00 Nasal Cannula 2.00 10/14/21 05:27 76 24 237/116 (156) 96 Nasal Cannula 2.00 10/14/21 05:25 72 24 220/128 (158) 96 Nasal Cannula 2.00 10/14/21 04:01 35.9 58 16 171/79 (109) 97 Nasal Cannula 2.00 10/14/21 01:00 56 10/14/21 00:13 35.8 74 18 139/77 (97) 96 Nasal Cannula 2.00 I & O 10/14/21 07:00 Intake Total 300 ml Output Total 1975 ml Balance -1675 ml Capillary Refill : Less Than 3 Seconds General Appearance: No Apparent Distress, WD/WN, Chronically ill, Obese HEENT: PERRL/EOMI, TMs Normal, Pharynx Normal Neck: Non Tender, Supple Respiratory: Chest Non Tender, No Accessory Muscle Use, No Respiratory Distress Cardiovascular: Regular Rate, Rhythm, No JVD Gastrointestinal: soft, tenderness (Epigastric area, less) Extremity: Normal Range of Motion, Non Tender Neurologic/Psychiatric: Alert, Oriented x3, No Motor/Sensory Deficits, Normal Mood/Affect Skin: Normal Color, Warm/Dry Lymphatic: No Adenopathy Results Lab Laboratory Tests 10/14/21 04:35: White Blood Count 12.2H, Red Blood Count 3.68L, Hemoglobin 11.1L, Hematocrit 34L , Mean Corpuscular Volume 92, Mean Corpuscular Hemoglobin 30, Mean Corpuscular Hemoglobin Concent 33, Red Cell Distribution Width 14.4, Platelet Count 158, Mean Platelet Volume 9.5, Immature Granulocyte % (Auto) 1, Neutrophils (%) (Auto) 91H, Lymphocytes (%) (Auto) 6L, Monocytes (%) (Auto) 2, Eosinophils (%) (Auto) 0, Basophils (%) (Auto) 0, Neutrophils # (Auto) 11.1H, Lymphocytes # (Auto) 0.8L, Monocytes # (Auto) 0.2, Eosinophils # (Auto) 0.0, Basophils # (Auto) 0.0, Immature Granulocyte # (Auto) 0.1, Sodium Level 141, Potassium Level 3.6, Chloride Level 103, Carbon Dioxide Level 27, Anion Gap 11, Blood Urea Nitrogen 17, Creatinine 0.76, Estimat Glomerular Filtration Rate 90, BUN/Creatinine Ratio 22, Glucose Level 171H, Calcium Level 8.5, Corrected Calcium 8.7, Magnesium Level 2.8H, Total Bilirubin 0.3, Aspartate Amino Transf (AST/SGOT) 25, Alanine Aminotransferase (ALT/SGPT) 57H, Alkaline Phosphatase 42, Total Protein 6.8, Albumin 3.8 10/14/21 05:59: Bedside Blood Gas pH (LAB) 7.478H, Bedside Blood Gas pCO2 (LAB) 42.0, Bedside Blood Gas pO2 (LAB) 84, Bedside Blood Gas HCO3 (LAB) 31.2H, POC Blood Gas Total CO2 Calc 32H, Bedside Bl Gas O2 Saturation (Calc) 97, Bedside Arterial Blood Base Excess 8H Microbiology 10/12/21 MRSA Screen - Final, Complete MRSA not isolated 10/11/21 Blood Culture - Preliminary, Resulted Positive; See Report 10/11/21 Urine Culture - Final, Complete NO GROWTH Assessment/Plan Assessment/Plan Assessment/Plan Epigastric abdominal pain nausea vomiting Headache History of cholecystectomy Patient pain in the epigastric region continued, but now less NPO wanting food. Diarrhea yesterday stool in transverse colon on KUB mag citrate NPO except DANELLE Carias DO Oct 14, 2021 22:29
[2021-10-15] VITALS (7 sets, daily range): BP systolic 111–174; BP diastolic 56–82
--- NOTE | 2021-10-15 05:59 | Progress Note - Hospitalist ---
Subjective HPI/CC On Admission Date Seen by Provider: Oct 15, 2021 Time Seen by Provider: 09:30 CC: Dizziness HPI: This is a 61 yr old female. She presented with dizziness for the past 2 weeks. She is also complaining of abdominal pain and she is having a lot of nausea and vomiting. I did consult Dr. Moulton. I ordered Amylase and Lipase to today's labs. Acute abdominal series x-ray was ordered. Due to the mid epigastri c pain I did go ahead and order an EKG, ECHO, and Dr. Lawrence consult. I reviewed ER workup. Subjective/Events-last exam Pt is doing about the same Was walking in the halls and doing well Discontinue catheter and telemetry DC antibiotics Hypertensive episode required blood pressure medication It appears that is when she has a headache, no other signs of any other secondary hypertension Review of Systems General: Fatigue, Malaise Objective Exam Vital Signs Vital Signs Date Time Temp Pulse Resp B/P (MAP) Pulse Ox O2 Delivery O2 Flow Rate FiO2 10/15/21 19:18 36.6 60 16 131/61 (84) 95 Nasal Cannula 1.50 10/12/21 04:00 30 Capillary Refill : Less Than 3 Seconds General Appearance: No Apparent Distress, WD/WN, Chronically ill, Obese Respiratory: Lungs Clear, Normal Breath Sounds Cardiovascular: Regular Rate, Rhythm Neurologic/Psychiatric: Alert, Oriented x3, No Motor/Sensory Deficits, Normal Mood/Affect Results/Procedures Lab Laboratory Tests 10/15/21 08:53 Patient resulted labs reviewed. Assessment/Plan Assessment and Plan Assess & Plan/Chief Complaint Assessment: s/p respiratory distress due to aspiration due to CO2 narcosis from narcotic use and morbid obesity and high risk for KEVIN/OHS Aspiration PNA now DC abx Dizziness Headache N/V Mid-epigastric abdominal pain Obesity Depression Atypical chest pain consulted Cardiology Emotional problems with difficulty coping Labile HTN Plan: Consult Cardiology and surgery Xray abd Check amylase and lipase 10/11/21: CT reviewed Appreciate Surgery and Cardiology 10/12/21: IV abx DC adam Move to 4th floor 10/13/2021: EGD Ambulate Supportive care 10/14: Move back to floor Monitor BP 10/15: DC Adam DC [facility] Critical Care Critically Ill Patient Diagnosis/Problems Diagnosis/Problems (1) Aspiration pneumonia (2) Pre-syncope (3) Nausea & vomiting Status: Acute Qualifiers: Vomiting type: unspecified Qualified Codes: R11.2 - Nausea with vomiting, unspecified (4) Uncontrolled hypertension (5) Dizziness Status: Acute MANI THORNTON DO Oct 15, 2021 05:59
[2021-10-15] MEDS ORDERED: KCL 20 MEQ TAB (K-DUR) PO SCH (06:00)
[2021-10-15] MEDS ORDERED: POTASSIUM CL 10MEQ/50ML IVPB 50 ML IV SCH (06:00)
[2021-10-15] MEDS ORDERED: MAGNESIUM 1 GM/100 ML IVPB 100 ML IV SCH (06:00)
[2021-10-15] MEDS: SUCRALFATE 1 GM (CARAFATE) TAB PO SCH ×4 (06:09→20:05)
[2021-10-15] MEDS: metroNIDAZOLE 500MG/100ML IVPB 100 ML IV SCH (06:09)
[2021-10-15] MEDS: DICYCLOMINE 10 MG (BENTYL) CAP PO SCH ×4 (06:09→20:05)
[2021-10-15] MEDS: IBUPROFEN 600 MG (MOTRIN) TAB PO PRN (06:12)
[2021-10-15] MEDS: PROPRANOLOL 20 MG (INDERAL) TABLET PO SCH (08:59)
[2021-10-15] MEDS: meTOprolol SUCCINATE 100 MG (TOPROL XL) TAB PO SCH ×2 (09:00→10:08)
[2021-10-15] MEDS: MONTELUKAST 10 MG (SINGULAIR) TAB PO SCH (09:08)
[2021-10-15] MEDS: amLODIPine 5 MG (NORVASC) TAB PO SCH (09:08)
[2021-10-15] MEDS: PANTOPRAZOLE 40 MG (PROTONIX) TAB PO SCH (09:08)
[2021-10-15] MEDS: SERTRALINE 100 MG (ZOLOFT) TAB PO SCH (09:08)
[2021-10-15] MEDS: ENOXAPARIN 40 MG/0.4 ML (LOVENOX) SYR SC SCH (09:08)
[2021-10-15] MEDS: lisINopril 40 MG (PRINIVIL) TABLET PO SCH (09:08)
[2021-10-15] MEDS: LORATADINE (CLARITIN) 10 MG TAB PO SCH (09:08)
[2021-10-15 09:09] LABS: BASOPHILS % (AUTO) 0 % (0-10); EOSINOPHILS % (AUTO) 0 % (0-10); HEMATOCRIT 34 % (35-52); LYMPHOCYTES # (AUTO) 2.3 10^3/uL (1.0-4.0); LYMPHOCYTES % (AUTO) 25 % (12-44); MEAN CORPUSCULAR HEMOGLOBIN 30 pg (25-34); MEAN CORPUSCULAR HGB CONC 33 g/dL (32-36); MEAN CORPUSCULAR VOLUME 92 fL (80-99); MEAN PLATELET VOLUME 8.4 fL (9.0-12.2); MONOCYTES # (AUTO) 0.6 10^3/uL (0.0-1.0); MONOCYTES % (AUTO) 6 % (0-12); NEUTROPHILS # (AUTO) 6.3 10^3/uL (1.8-7.8); NEUTROPHILS % (AUTO) 68 % (42-75); PLATELET COUNT 183 10^3/uL (130-400); WHITE BLOOD COUNT 9.3 10^3/uL (4.3-11.0)
[2021-10-15] MEDS: polyethylene glycoL POWDER 17 GM (MIRALAX) PACK PO SCH ×3 (09:09→20:05)
[2021-10-15 09:12] LABS: ALBUMIN 3.4 GM/DL (3.2-4.5); POTASSIUM 3.2 MMOL/L (3.6-5.0)
[2021-10-15] MEDS: RT-ALBUTEROL SULF 2.5 MG/3 ML PRE-MIX VIAL INH SCH ×3 (09:12→18:40)
[2021-10-15 09:13] LABS: CALCIUM 8.1 MG/DL (8.5-10.1)
[2021-10-15 09:16] LABS: BILIRUBIN,TOTAL 0.4 MG/DL (0.1-1.0)
[2021-10-15 09:18] LABS: CREATININE SERUM 0.82 MG/DL (0.60-1.30)
--- NOTE | 2021-10-15 09:35 | Physical Therapy Daily Note ---
PT Daily Note-Current Subjective Patient in bed pre tx, agrees to PT, has no complaints of pain. Appearance Patient in bed post tx with nurse call, phone, tray, all needs met. Mental Status Patient Orientation: Person, Place, Situation Attachments: Oxygen, Osorio Catheter Transfers SCALE: Activities may be completed with or without assistive devices. 5-Nvndtbqhpr-ffeucpu completes the activity by him/herself with no assistance from a helper. 5-Set-up or Clean-up Assistance-helper sets up or cleans up; patient completes activity. Maurepas assists only prior to or following the activity. 4-Supervision or Touching Assistance-helper provides verbal cues and/or touching/steadying and/or contact guard assistance as patient completes activity. Assistance may be provided throughout the activity or intermittently. 3-Partial/Moderate Assistance-helper does LESS THAN HALF the effort. Maurepas lifts, holds or supports trunk or limbs, but provides less than half the effort. 2-Substantial/Maximal Assistance-helper does MORE THAN HALF the effort. Maurepas lifts or holds trunk or limbs and provides more than half the effort. 4-Nfobfhfew-fypeuk does ALL the effort. Patient does none of the effort to complete the activity. Or, the assistance of 2 or more helpers is required for the patient to complete the activity. If activity was not attempted, code reason: 7-Patient Refused. 9-Not Applicable-not attempted and the patient did not perform the activity before the current illness, exacerbation or injury. 10-Not Attempted due to Environmental Limitations-(lack of equipment, weather restraints, etc.). 88-Not Attempted due to Medical Conditions or Safety Concerns. Roll Left & Right (QC): 6 Sit to Lying (QC): 6 Lying to Sitting/Side of Bed(Q: 6 Sit to Stand (QC): 4 Chair/Lvi-vi-Qlrbt Xfer(QC): 4 Gait Training Distance: 150' Walk 10 feet (QC): 4 Walk 50 ft with 2 Turns(QC): 4 Walk 150 ft (QC): 4 Gait Persons Needed: 1 Gait Assistive Device: None SBA, no assistive device used, patient likes to use the handrail in the hallway but has no trouble when it is not available, needs to take occasional standing rest breaks. Exercises Seated Therapy Exercises: Ankle pumps, Long arc quads Seated Reps: 20 Treatments bed mobility and transfers, ambulation, LE strengthening Assessment Current Status: Fair Progress SOB with activity PT Alf Goals Hair Baler Goals PT Alf Goals Time Frame: Oct 25, 2021 Roll Left & Right (QC): 6 Sit to Lying (QC): 6 Lying-Sitting on Side/Bed(QC): 6 Sit to Stand (QC): 6 Chair/Wyk-if-Opjeu Xfer(QC): 6 Toilet Transfer (QC): 6 Car Transfer (QC): 6 Walk 10 feet (QC): 6 Walk 50ft with 2 Turns (QC): 6 Walk 150 ft (QC): 6 PT Plan Problem List Problem List: Activity Tolerance, Functional Strength, Safety, Balance, Gait, Transfer, ROM Treatment/Plan Treatment Plan: Continue Plan of Care Treatment Plan: Education, Functional Activity Caitlyn, Functional Strength, Gait, Safety, Therapeutic Exercise Treatment Duration: Oct 25, 2021 Frequency: 6 times per week Estimated Hrs Per Day: .25 hour per day Patient and/or Family Agrees t: Yes Safety Risks/Education Patient Education: Gait Training, Transfer Techniques, Correct Positioning, Safety Issues Teaching Recipient: Patient Teaching Methods: Demonstration, Discussion Response to Teaching: Reinforcement Needed Time/GCodes Time In: 0855 Time Out: 904 Total Billed Treatment Time: 10 Total Billed Treatment 1 visit FA EVA FERRER PT Oct 15, 2021 09:35
--- NOTE | 2021-10-15 09:43 | Progress Note - Cardiology ---
Cardiology SOAP Progress Note Subjective: Sitting up in bed No c/o CP, SOB, palpitations, abd pain, CAMACHO or nausea Objective: I&O/Vital Signs 10/15/21 10/15/21 10/15/21 10/16/21 20:30 22:17 23:25 01:00 Temp 36.3 Pulse 50 50 Resp 18 B/P (MAP) 117/56 (76) Pulse Ox 95 95 96 O2 Delivery Nasal Cannula Nasal Cannula Nasal Cannula O2 Flow Rate 1.50 1.50 1.50 10/16/21 04:30 Temp 36.6 Pulse 54 Resp 16 B/P (MAP) 120/58 (78) Pulse Ox 95 O2 Delivery Nasal Cannula O2 Flow Rate 1.50 10/16/21 00:00 Intake Total 300 ml Output Total 100 ml Balance 200 ml Weight (Pounds): 168 Weight (Ounces): 0 Weight (Calculated Kilograms): [id number] Constitutional: AAO x 3, well-developed, well-nourished Respiratory: No accessory muscle use, No respiratory distress; chest expansion is symmetric, chest is bilaterally symmetric, lungs clear to auscultation Cardiovascular: regular rate-rhythm; No JVD; S1 and S2 Gastrointestional: distended; No guarding; audible bowel sounds, other (emesis) Extremities: no lower extremity edema bilateral Neurologic/Psychiatric: grossly intact (moves all extremities) Skin: No rash on exposed areas, No ulcerations on exposed areas Results/Procedures: Labs Laboratory Tests 10/15/21 08:53: White Blood Count 9.3, Red Blood Count 3.65L, Hemoglobin 11.0L, Hematocrit 34L, Mean Corpuscular Volume 92, Mean Corpuscular Hemoglobin 30, Mean Corpuscular Hemoglobin Concent 33, Red Cell Distribution Width 14.4, Platelet Count 183, Mean Platelet Volume 8.4L, Immature Granulocyte % (Auto) 1, Neutrophils (%) (Auto) 68, Lymphocytes (%) (Auto) 25, Monocytes (%) (Auto) 6, Eosinophils (%) (Auto) 0, Basophils (%) (Auto) 0, Neutrophils # (Auto) 6.3, Lymphocytes # (Auto) 2.3, Monocytes # (Auto) 0.6, Eosinophils # (Auto) 0.0, Basophils # (Auto) 0.0, Immature Granulocyte # (Auto) 0.1, Sodium Level 142, Potassium Level 3.2L, Chloride Level 103, Carbon Dioxide Level 29, Anion Gap 10, Blood Urea Nitrogen 24H, Creatinine 0.82, Estimat Glomerular Filtration Rate 82, BUN/Creatinine Ratio 29, Glucose Level 98, Calcium Level 8.1L, Corrected Calcium 8.6, Total Bilirubin 0.4, Aspartate Amino Transf (AST/SGOT) 27, Alanine Aminotransferase (ALT/SGPT) 52, Alkaline Phosphatase 40, Total Protein 6.0L, Albumin 3.4 10/16/21 05:00: White Blood Count 8.3, Red Blood Count 3.80, Hemoglobin 11.4L, Hematocrit 35, Mean Corpuscular Volume 93, Mean Corpuscular Hemoglobin 30, Mean Corpuscular Hemoglobin Concent 32, Red Cell Distribution Width 14.3, Platelet Count 174, Mean Platelet Volume 8.5L, Immature Granulocyte % (Auto) 0, Neutrophils (%) (Auto) 64, Lymphocytes (%) (Auto) 26, Monocytes (%) (Auto) 7, Eosinophils (%) (Auto) 3, Basophils (%) (Auto) 0, Neutrophils # (Auto) 5.2, Lymphocytes # (Auto) 2.1, Monocytes # (Auto) 0.6, Eosinophils # (Auto) 0.3, Basophils # (Auto) 0.0, Immature Granulocyte # (Auto) 0.0 10/16/21 05:28: Sodium Level 142, Potassium Level 3.3L, Chloride Level 104, Carbon Dioxide Level 28, Anion Gap 10, Blood Urea Nitrogen 21H, Creatinine 0.72, Estimat Glomerular Filtration Rate 96, BUN/Creatinine Ratio 29, Glucose Level 97, Calcium Level 7.9L, Corrected Calcium 8.3L, Total Bilirubin 0.4, Aspartate Amino Transf (AST/SGOT) 31, Alanine Aminotransferase (ALT/SGPT) 57H, Alkaline Phosphatase 39L , Total Protein 6.1L, Albumin 3.5 Microbiology 10/14/21 MRSA Screen - Final, Complete MRSA not isolated 10/11/21 Blood Culture - Preliminary, Resulted Coryneform bacteria See Comments 10/11/21 Urine Culture - Final, Complete NO GROWTH A/P: Assessment: Episode of hypoxia on 10/11/21, managed by Dr Morales and diagnosed aspiration pneumonia - transiently in ICU (10/10/21), now back on the Med floor Dizziness of undetermined etiology - no evidence of carotid dz per u/s of 10-09-21 - no acute intracranial abnormality on CT of the head on 10-09-21 Headache and abdominal discomfort, managed by Dr Morales HTN - continue home medications Nausea and vomiting - management per Medical services Obesity H/o cholecystectomy and appendectomy H/o hysterectomy Hypokalemia Plan: Symptoms are much improved as is her bp - continue current regimen Episodes of bradycardia over night prompting Metoprolol to be held intermittently. Will stop Propranolol Management of CAMACHO and abd discomfort and hypoxia/pneumonia is with Dr Morales Monitor labs Replace electrolytes as indicated Replace potassium GABY CORTEZ Oct 15, 2021 09:43
[2021-10-15] MEDS ORDERED: KCL 20 MEQ TAB (K-DUR) PO ONE (09:45)
--- NOTE | 2021-10-15 10:55 | Progress Note - Surgery ---
Subjective Date Seen by a Provider: Oct 15, 2021 Time Seen by a Provider: 10:55 Subjective/Events-last exam Patient reports had a small bowel movement yesterday. Did not drink very much the mag citrate only a few drinks. Having less pain today. Not having the nausea and vomiting. Wanting more diet. Denies fever sweats chills shortness of breath or chest pain. Objective Exam Vital Signs Date Time Temp Pulse Resp B/P (MAP) Pulse Ox O2 Delivery O2 Flow Rate FiO2 10/15/21 09:13 95 Nasal Cannula 2.00 10/15/21 08:00 Nasal Cannula 2.00 10/15/21 07:18 36.7 58 20 111/68 (82) 94 Nasal Cannula 1.00 10/15/21 07:00 52 10/15/21 04:00 36.2 50 20 113/65 (81) 95 Nasal Cannula 1.00 10/15/21 01:00 52 10/15/21 00:15 36.7 54 20 117/56 (76) 94 Nasal Cannula 1.00 10/14/21 20:55 94 Nasal Cannula 2.00 10/14/21 20:00 Nasal Cannula 2.00 10/14/21 19:12 36.8 55 16 119/64 (82) 91 Nasal Cannula 2.00 10/14/21 19:00 52 10/14/21 15:17 36.9 73 20 131/67 (88) 91 Nasal Cannula 2.00 10/14/21 14:55 94 Nasal Cannula 2.00 10/14/21 12:07 36.9 65 20 109/63 (78) 95 Nasal Cannula 3.00 I & O 10/15/21 07:00 Intake Total 150 ml Output Total 900 ml Balance -750 ml Capillary Refill : Less Than 3 Seconds General Appearance: No Apparent Distress, WD/WN, Chronically ill, Obese HEENT: PERRL/EOMI, TMs Normal, Pharynx Normal Neck: Non Tender, Supple Respiratory: Chest Non Tender, No Accessory Muscle Use, No Respiratory Distress Cardiovascular: Regular Rate, Rhythm, No JVD Gastrointestinal: soft, tenderness (Epigastric area, same as yesterday) Extremity: Normal Range of Motion, Non Tender Neurologic/Psychiatric: Alert, Oriented x3, No Motor/Sensory Deficits, Normal Mood/Affect Skin: Normal Color, Warm/Dry Lymphatic: No Adenopathy Results Lab Laboratory Tests 6/15/22 08:53: White Blood Count 9.3, Red Blood Count 3.65L, Hemoglobin 11.0L, Hematocrit 34L, Mean Corpuscular Volume 92, Mean Corpuscular Hemoglobin 30, Mean Corpuscular Hemoglobin Concent 33, Red Cell Distribution Width 14.4, Platelet Count 183, Mean Platelet Volume 8.4L, Immature Granulocyte % (Auto) 1, Neutrophils (%) (Auto) 68, Lymphocytes (%) (Auto) 25, Monocytes (%) (Auto) 6, Eosinophils (%) (Auto) 0, Basophils (%) (Auto) 0, Neutrophils # (Auto) 6.3, Lymphocytes # (Auto) 2.3, Monocytes # (Auto) 0.6, Eosinophils # (Auto) 0.0, Basophils # (Auto) 0.0, Immature Granulocyte # (Auto) 0.1, Sodium Level 142, Potassium Level 3.2L, Chloride Level 103, Carbon Dioxide Level 29, Anion Gap 10, Blood Urea Nitrogen 24H, Creatinine 0.82, Estimat Glomerular Filtration Rate 82, BUN/Creatinine Ratio 29, Glucose Level 98, Calcium Level 8.1L, Corrected Calcium 8.6, Total Bilirubin 0.4, Aspartate Amino Transf (AST/SGOT) 27, Alanine Aminotransferase (ALT/SGPT) 52, Alkaline Phosphatase 40, Total Protein 6.0L, Albumin 3.4 Microbiology 10/14/21 MRSA Screen - Final, Complete MRSA not isolated 10/11/21 Blood Culture - Preliminary, Resulted Positive; See Report 10/11/21 Urine Culture - Final, Complete NO GROWTH Assessment/Plan Assessment/Plan Assessment/Plan Epigastric abdominal pain nausea vomiting Headache History of cholecystectomy Patient pain in the epigastric region continued, but now less NPO wanting food. Small bowel movement yesterday stool in transverse colon on KUB mag citrate onto the small amounts, told her to drink the rest of it today. NPO except rajinders DANELLE SHERWOOD DO Oct 15, 2021 10:55
[2021-10-15] MEDS ORDERED: amLODIPine 5 MG (NORVASC) TAB PO NR (11:30)
--- NOTE | 2021-10-15 11:41 | Occupational Ther Daily Note ---
OT Current Status-Daily Note Subjective While ambulating to bathroom, pt verbalizes feelings of dizziness. Appearance Pt returned to supine in bed, RN and AUTOMOTIVE DESIGN LAYOUT DRAFTER in room at therapy departure. Mental Status/Objective Patient Orientation: Person, Place, Situation Attachments: Oxygen ADL-Treatment Therapy Code Descriptions/Definitions Functional [place] Measure: 0=Not Assessed/NA 4=Minimal Assistance 1=Total Assistance 5=Supervision or Setup 2=Maximal Assistance 6=Modified [place] 3=Moderate Assistance 7=Complete IndependenceSCALE: Activities may be completed with or without assistive devices. 8-Mfrsdqcwrr-viugygo completes the activity by him/herself with no assistance from a helper. 5-Set-up or Clean-up Assistance-helper sets up or cleans up; patient completes activity. Kayenta assists only prior to or following the activity. 4-Supervision or Touching Assistance-helper provides verbal cues and/or touching /steadying and/or contact guard assistance as patient completes activity. Assistance may be provided throughout the activity or intermittently. 3-Partial/Moderate Assistance-helper does LESS THAN HALF the effort. Kayenta lifts, holds or supports trunk or limbs, but provides less than half the effort. 2-Substantial/Maximal Assistance-helper does MORE THAN HALF the effort. Kayenta lifts or holds trunk or limbs and provides more than half the effort. 5-Ptzzejnkp-gqpunl does ALL the effort. Patient does none of the effort to complete the activity. Or, the assistance of 2 or more helpers is required for the patient to complete the activity. If activity was not attempted, code reason: 7-Patient Refused. 9-Not Applicable-not attempted and the patient did not perform the activity before the current illness, exacerbation or injury. 10-Not Attempted due to Environmental Limitations-(lack of equipment, weather restraints, etc.). 88-Not Attempted due to Medical Conditions or Safety Concerns. Toilet Transfer (QC): 3 Pt supine in bed at OT arrival, she reports feeling good and requesting to use the toilet. Supine>sit>stand: indep. While ambulating to the bathroom, pt verbalizes feelings of dizziness. She was approximately 2-3 steps away from the toilet and required min a to reach toilet safely. While seated, pt continues to c/o dizziness and not feeling right. Nursing staff called in and BP taken. 183/109. Mod a to stand from toilet with assist x2 (for safety only) to ambulate back to bed. Pt states she feels as if she is going to pass out. Assist to return to supine. BP in supine (209/103). RN aware and making call to doctor. Pt left in hands of RN and AUTOMOTIVE DESIGN LAYOUT DRAFTER. Education OT Patient Education: Correct positioning, Purpose of tx/functional activities, Safety issues, Transfer techniques Teaching Methods: Discussion Response to Teaching: Verbalize Understanding, Reinforcement Needed OT Fci Goals Fci Goals Time Frame: Oct 24, 2021 Oral Hygiene (QC): 6 Toileting Hygiene (QC): 6 Shower/Bathe Self (QC): 6 Upper Body Dressing (QC): 6 Lower Body Dressing (QC): 6 On/Off Footwear (QC): 6 Additional Goals: 1-Demonstrate ADL Tasks, 2-Verbalize Understanding, 3- ImproveStrength/Caitlyn 1=Demonstrate adherence to instructed precautions during ADL tasks. 2=Patient will verbalize/demonstrate understanding of assistive devices/modifications for ADL. 3=Patient will improve strength/tolerance for activity to enable patient to perform ADL's. OT Education/Plan Problem List/Assessment Assessment: Decreased Activ Tolerance, Decreased Safety Aware, Impaired Funct Balance, Impaired I ADL's, Impaired Self-Care Skills Discharge Recommendations Plan/Recommendations: Continue POC Treatment Plan/Plan of Care Treatment,Training & Education: Yes Patient would benefit from OT for education, treatment and training to promote independence in ADL's, mobility, safety and/or upper extremity function for ADL's. Plan of Care: ADL Retraining, Functional Mobility, UE Funct Exercise/Act Treatment Duration: Oct 24, 2021 Frequency: 3 times per week (3-5x/wk) Estimated Hrs Per Day: .25 hour per day Rehab Potential: Fair Time/GCodes Start Time: 11:00 Stop Time: 11:18 Total Time Billed (hr/min): 18 Billed Treatment Time 1 visit Christine Fritz OT Oct 15, 2021 11:41
--- NOTE | 2021-10-15 11:48 | Progress Note - Cardiology ---
Cardiology SOAP Progress Note Subjective: No cp or palp or syncope Shortness of breath much improved Gen weakness and malaise, improved No n/v/d Objective: I&O/Vital Signs 10/15/21 10/15/21 10/15/21 10/15/21 00:15 01:00 04:00 07:00 Temp 36.7 36.2 Pulse 54 52 50 52 Resp 20 20 B/P (MAP) 117/56 (76) 113/65 (81) Pulse Ox 94 95 O2 Delivery Nasal Cannula Nasal Cannula O2 Flow Rate 1.00 1.00 10/15/21 10/15/21 10/15/21 10/15/21 07:18 08:00 09:13 11:28 Temp 36.7 36.0 Pulse 58 63 Resp 20 20 B/P (MAP) 111/68 (82) 174/82 (112) Pulse Ox 94 95 98 O2 Delivery Nasal Cannula Nasal Cannula Nasal Cannula Nasal Cannula O2 Flow Rate 1.00 2.00 2.00 1.00 10/15/21 00:00 Intake Total 0 ml Output Total 225 ml Balance -225 ml Weight (Pounds): 168 Weight (Ounces): 0 Weight (Calculated Kilograms): 76.627461 Constitutional: AAO x 3, well-developed, well-nourished Respiratory: No accessory muscle use, No respiratory distress; chest expansion is symmetric, chest is bilaterally symmetric, lungs clear to auscultation Cardiovascular: regular rate-rhythm; No JVD; S1 and S2 Gastrointestional: distended; No guarding; audible bowel sounds, other (emesis) Extremities: no lower extremity edema bilateral Neurologic/Psychiatric: grossly intact (moves all extremities) Skin: No rash on exposed areas, No ulcerations on exposed areas Results/Procedures: Labs Laboratory Tests 10/15/21 08:53: White Blood Count 9.3, Red Blood Count 3.65L, Hemoglobin 11.0L, Hematocrit 34L, Mean Corpuscular Volume 92, Mean Corpuscular Hemoglobin 30, Mean Corpuscular Hemoglobin Concent 33, Red Cell Distribution Width 14.4, Platelet Count 183, Mean Platelet Volume 8.4L, Immature Granulocyte % (Auto) 1, Neutrophils (%) (Auto) 68, Lymphocytes (%) (Auto) 25, Monocytes (%) (Auto) 6, Eosinophils (%) (Auto) 0, Basophils (%) (Auto) 0, Neutrophils # (Auto) 6.3, Lymphocytes # (Auto) 2.3, Monocytes # (Auto) 0.6, Eosinophils # (Auto) 0.0, Basophils # (Auto) 0.0, Immature Granulocyte # (Auto) 0.1, Sodium Level 142, Potassium Level 3.2L, Chloride Level 103, Carbon Dioxide Level 29, Anion Gap 10, Blood Urea Nitrogen 24H, Creatinine 0.82, Estimat Glomerular Filtration Rate 82, BUN/Creatinine Ratio 29, Glucose Level 98, Calcium Level 8.1L, Corrected Calcium 8.6, Total Bilirubin 0.4, Aspartate Amino Transf (AST/SGOT) 27, Alanine Aminotransferase (ALT/SGPT) 52, Alkaline Phosphatase 40, Total Protein 6.0L, Albumin 3.4 Microbiology 10/14/21 MRSA Screen - Final, Complete MRSA not isolated 10/11/21 Blood Culture - Preliminary, Resulted Positive; See Report 10/11/21 Urine Culture - Final, Complete NO GROWTH Laboratory Tests 10/14/21 04:35 10/15/21 08:53 A/P: Assessment: Episode of hypoxia on 10/11/21, managed by Dr Morales and diagnosed aspiration pneumonia - transiently in ICU (10/10/21), now back on the Med floor Dizziness of undetermined etiology - no evidence of carotid dz per u/s of 10-09-21 - no acute intracranial abnormality on CT of the head on 10-09-21 Headache and abdominal discomfort, managed by Dr Morales HTN - continue home medications Nausea and vomiting - management per Medical services Obesity H/o cholecystectomy and appendectomy H/o hysterectomy Hypokalemia Plan: Symptoms are much improved as is her bp - continue current regimen Episodes of bradycardia over night prompting Metoprolol to be held intermittently. Will stop Propranolol Management of CAMACHO and abd discomfort and hypoxia/pneumonia is with Dr Morales Monitor labs Replace electrolytes as indicated Replace potassium ARLENE GREENWOOD MD [facility] Oct 15, 2021 11:48
[2021-10-15] MEDS: AtorvaSTATin TABLET 10 MG TABLET PO SCH (20:05)
[2021-10-15] MEDS: traZODone 100 MG (DESYREL) TAB PO SCH (20:05)
[2021-10-16 04:30] VITALS: BP 120/58
[2021-10-16] MEDS: SUCRALFATE 1 GM (CARAFATE) TAB PO SCH ×3 (05:27→17:02)
[2021-10-16] MEDS: DICYCLOMINE 10 MG (BENTYL) CAP PO SCH ×3 (05:28→17:02)
--- NOTE | 2021-10-16 05:42 | Progress Note - Hospitalist ---
Subjective HPI/CC On Admission Date Seen by Provider: Oct 16, 2021 Time Seen by Provider: 11:00 CC: Dizziness HPI: This is a 61 yr old female. She presented with dizziness for the past 2 weeks. She is also complaining of abdominal pain and she is having a lot of nausea and vomiting. I did consult Dr. Moulton. I ordered Amylase and Lipase to today's labs. Acute abdominal series x-ray was ordered. Due to the mid epigastric pain I did go ahead and order an EKG, ECHO, and Dr. Lawrence consult. I reviewed ER workup. Subjective/Events-last exam Ready for DC Objective Exam Vital Signs Vital Signs Date Time Temp Pulse Resp B/P (MAP) Pulse Ox O2 Delivery O2 Flow Rate FiO2 10/16/21 18:33 36.4 68 18 148/93 97 Room Air 1.50 10/12/21 04:00 30 Capillary Refill : Less Than 3 Seconds General Appearance: No Apparent Distress, WD/WN, Chronically ill Respiratory: Lungs Clear, Normal Breath Sounds Cardiovascular: Regular Rate, Rhythm Neurologic/Psychiatric: Alert, Oriented x3, No Motor/Sensory Deficits, Normal Mood/Affect Results/Procedures Lab Patient resulted labs reviewed. Assessment/Plan Assessment and Plan Assess & Plan/Chief Complaint Assessment: s/p respiratory distress due to aspiration due to CO2 narcosis from narcotic use and morbid obesity and high risk for KEVIN/OHS Aspiration PNA now DC abx Dizziness Headache N/V Mid-epigastric abdominal pain Obesity Depression Atypical chest pain consulted Cardiology Emotional problems with difficulty coping Labile HTN Plan: Consult Cardiology and surgery Xray abd Check amylase and lipase 10/11/21: CT reviewed Appreciate Surgery and Cardiology 10/12/21: IV abx DC adam Move to 4th floor 10/13/2021: EGD Ambulate Supportive care 10/14: Move back to floor Monitor BP 10/15: DC Adam DC Tely 10/16: DC Critical Care Critically Ill Patient Diagnosis/Problems Diagnosis/Problems (1) Aspiration pneumonia (2) Pre-syncope (3) Nausea & vomiting Status: Acute Qualifiers: Vomiting type: unspecified Qualified Codes: R11.2 - Nausea with vomiting, unspecified (4) Uncontrolled hypertension (5) Dizziness Status: Acute MANI THORNTON DO Oct 16, 2021 05:42
[2021-10-16 05:52] LABS: BASOPHILS % (AUTO) 0 % (0-10); EOSINOPHILS # (AUTO) 0.3 10^3/uL (0.0-0.3); EOSINOPHILS % (AUTO) 3 % (0-10); HEMATOCRIT 35 % (35-52); HEMOGLOBIN 11.4 g/dL (11.5-16.0); LYMPHOCYTES # (AUTO) 2.1 10^3/uL (1.0-4.0); LYMPHOCYTES % (AUTO) 26 % (12-44); MEAN CORPUSCULAR HEMOGLOBIN 30 pg (25-34); MEAN CORPUSCULAR HGB CONC 32 g/dL (32-36); MEAN CORPUSCULAR VOLUME 93 fL (80-99); MEAN PLATELET VOLUME 8.5 fL (9.0-12.2); MONOCYTES # (AUTO) 0.6 10^3/uL (0.0-1.0); MONOCYTES % (AUTO) 7 % (0-12); NEUTROPHILS # (AUTO) 5.2 10^3/uL (1.8-7.8); NEUTROPHILS % (AUTO) 64 % (42-75); PLATELET COUNT 174 10^3/uL (130-400); WHITE BLOOD COUNT 8.3 10^3/uL (4.3-11.0)
[2021-10-16 05:57] LABS: ALBUMIN 3.5 GM/DL (3.2-4.5)
[2021-10-16 05:58] LABS: POTASSIUM 3.3 MMOL/L (3.6-5.0)
[2021-10-16 05:59] LABS: CALCIUM 7.9 MG/DL (8.5-10.1)
[2021-10-16 06:00] LABS: TOTAL PROTEIN 6.1 GM/DL (6.4-8.2)
[2021-10-16 06:02] LABS: BILIRUBIN,TOTAL 0.4 MG/DL (0.1-1.0)
[2021-10-16 06:04] LABS: CREATININE SERUM 0.72 MG/DL (0.60-1.30)
[2021-10-16] MEDS ORDERED: KCL 20 MEQ TAB (K-DUR) PO ONE ×3 (06:45→12:00)
[2021-10-16 07:44] VITALS: BP 127/80
[2021-10-16] MEDS: RT-ALBUTEROL SULF 2.5 MG/3 ML PRE-MIX VIAL INH SCH (08:07)
--- NOTE | 2021-10-16 08:57 | Progress Note - Cardiology ---
Cardiology SOAP Progress Note Subjective: Sitting up in recliner at the bedside States she is feeling better No c/o abd pain No c/o CAMACHO No c/o CP, SOB or palpitations Objective: I&O/Vital Signs 10/15/21 10/15/21 10/16/21 10/16/21 22:17 23:25 01:00 04:30 Temp 36.3 36.6 Pulse 50 50 54 Resp 18 16 B/P (MAP) 117/56 (76) 120/58 (78) Pulse Ox 95 96 95 O2 Delivery Nasal Cannula Nasal Cannula Nasal Cannula O2 Flow Rate 1.50 1.50 1.50 10/16/21 10/16/21 10/16/21 07:00 07:44 08:09 Temp 36.8 Pulse 55 62 Resp 18 B/P (MAP) 127/80 (96) Pulse Ox 95 97 O2 Delivery Nasal Cannula Nasal Cannula O2 Flow Rate 1.50 2.00 10/16/21 00:00 Intake Total 300 ml Output Total 100 ml Balance 200 ml Weight (Pounds): 168 Weight (Ounces): 0 Weight (Calculated Kilograms): 76.559765 Constitutional: AAO x 3, well-developed, well-nourished Respiratory: No accessory muscle use, No respiratory distress; chest expansion is symmetric, chest is bilaterally symmetric, lungs clear to auscultation Cardiovascular: regular rate-rhythm; No JVD; S1 and S2 Gastrointestional: distended; No guarding; audible bowel sounds, other (emesis) Extremities: no lower extremity edema bilateral Neurologic/Psychiatric: grossly intact (moves all extremities) Skin: No rash on exposed areas, No ulcerations on exposed areas Results/Procedures: Labs Laboratory Tests 10/16/21 05:00: White Blood Count 8.3, Red Blood Count 3.80, Hemoglobin 11.4L, Hematocrit 35, Mean Corpuscular Volume 93, Mean Corpuscular Hemoglobin 30, Mean Corpuscular Hemoglobin Concent 32, Red Cell Distribution Width 14.3, Platelet Count 174, Mean Platelet Volume 8.5L, Immature Granulocyte % (Auto) 0, Neutrophils (%) (Auto) 64, Lymphocytes (%) (Auto) 26, Monocytes (%) (Auto) 7, Eosinophils (%) (Auto) 3, Basophils (%) (Auto) 0, Neutrophils # (Auto) 5.2, Lymphocytes # (Auto) 2.1, Monocytes # (Auto) 0.6, Eosinophils # (Auto) 0.3, Basophils # (Auto) 0.0, Immature Granulocyte # (Auto) 0.0 10/16/21 05:28: Sodium Level 142, Potassium Level 3.3L, Chloride Level 104, Carbon Dioxide Level 28, Anion Gap 10, Blood Urea Nitrogen 21H, Creatinine 0.72, Estimat Glomerular Filtration Rate 96, BUN/Creatinine Ratio 29, Glucose Level 97, Calcium Level 7.9L, Corrected Calcium 8.3L, Total Bilirubin 0.4, Aspartate Amino Transf (AST/SGOT) 31, Alanine Aminotransferase (ALT/SGPT) 57H, Alkaline Phosphatase 39L , Total Protein 6.1L, Albumin 3.5 Microbiology 10/14/21 MRSA Screen - Final, Complete MRSA not isolated 10/11/21 Blood Culture - Preliminary, Resulted Coryneform bacteria See Comments 10/11/21 Urine Culture - Final, Complete NO GROWTH Laboratory Tests 10/15/21 08:53 10/16/21 05:00 10/16/21 05:28 A/P: Assessment: Episode of hypoxia on 10/11/21, managed by Dr Morales and diagnosed aspiration pneumonia - transiently in ICU (10/10/21), now back on the Med floor Dizziness of undetermined etiology - no evidence of carotid dz per u/s of 10-09-21 - no acute intracranial abnormality on CT of the head on 10-09-21 Headache and abdominal discomfort, managed by Dr Morales HTN - continue home medications Nausea and vomiting - management per Medical/GI services Obesity H/o cholecystectomy and appendectomy H/o hysterectomy Hypokalemia Plan: Symptoms are much improved as is her bp - continue current regimen Management of CAMACHO and abd discomfort is per GI services Monitor labs Replace electrolytes as indicated Replace potassium GABY CORTEZ Oct 16, 2021 08:57
[2021-10-16] MEDS: amLODIPine 5 MG (NORVASC) TAB PO SCH (09:34)
[2021-10-16] MEDS: LORATADINE (CLARITIN) 10 MG TAB PO SCH (09:34)
[2021-10-16] MEDS: PANTOPRAZOLE 40 MG (PROTONIX) TAB PO SCH (09:34)
[2021-10-16] MEDS: polyethylene glycoL POWDER 17 GM (MIRALAX) PACK PO SCH ×2 (09:34→12:57)
[2021-10-16] MEDS: SERTRALINE 100 MG (ZOLOFT) TAB PO SCH (09:34)
[2021-10-16] MEDS: ENOXAPARIN 40 MG/0.4 ML (LOVENOX) SYR SC SCH (09:34)
[2021-10-16] MEDS: MONTELUKAST 10 MG (SINGULAIR) TAB PO SCH (09:34)
[2021-10-16] MEDS: meTOprolol SUCCINATE 100 MG (TOPROL XL) TAB PO SCH (09:34)
[2021-10-16] MEDS: lisINopril 40 MG (PRINIVIL) TABLET PO SCH (09:35)
--- NOTE | 2021-10-16 10:06 | Physical Therapy Daily Note ---
PT Daily Note-Current Subjective Patient states she is hungry and wants to eat soon. Agrees to PT. Mental Status Patient Orientation: Normal For Age Attachments: Oxygen Transfers SCALE: Activities may be completed with or without assistive devices. 3-Shxkzyyvkt-jxbbkjd completes the activity by him/herself with no assistance from a helper. 5-Set-up or Clean-up Assistance-helper sets up or cleans up; patient completes activity. [place] assists only prior to or following the activity. 4-Supervision or Touching Assistance-helper provides verbal cues and/or touching/steadying and/or contact guard assistance as patient completes activit y. Assistance may be provided throughout the activity or intermittently. 3-Partial/Moderate Assistance-helper does LESS THAN HALF the effort. [place] lifts, holds or supports trunk or limbs, but provides less than half the effort. 2-Substantial/Maximal Assistance-helper does MORE THAN HALF the effort. [place] lifts or holds trunk or limbs and provides more than half the effort. 3-Ntyzavsco-qxkunh does ALL the effort. Patient does none of the effort to complete the activity. Or, the assistance of 2 or more helpers is required for the patient to complete the activity. If activity was not attempted, code reason: 7-Patient Refused. 9-Not Applicable-not attempted and the patient did not perform the activity before the current illness, exacerbation or injury. 10-Not Attempted due to Environmental Limitations-(lack of equipment, weather restraints, etc.). 88-Not Attempted due to Medical Conditions or Safety Concerns. Sit to Stand (QC): 6 Toilet Transfer (QC): 6 (toileted independently after BM and washed hands) Gait Training Distance: 400' Walk 10 feet (QC): 6 Walk 50 ft with 2 Turns(QC): 6 Walk 150 ft (QC): 6 Gait Assistive Device: None no use of hand rail on this date. safe and functional gait sequence Assessment Much improved on this date. PT will see patient x 1 more session then dismiss from services. PT Store Host Goals Store Host Goals PT Store Host Goals Time Frame: Oct 25, 2021 Roll Left & Right (QC): 6 Sit to Lying (QC): 6 Lying-Sitting on Side/Bed(QC): 6 Sit to Stand (QC): 6 Chair/Ycn-km-[place] Xfer(QC): 6 Toilet Transfer (QC): 6 Car Transfer (QC): 6 Walk 10 feet (QC): 6 Walk 50ft with 2 Turns (QC): 6 Walk 150 ft (QC): 6 PT Plan Treatment/Plan Treatment Plan: Continue Plan of Care Treatment Plan: Education, Functional Activity Caitlyn, Functional Strength, Gait, Safety, Therapeutic Exercise Treatment Duration: Oct 25, 2021 Frequency: 6 times per week Estimated Hrs Per Day: .25 hour per day Patient and/or Family Agrees t: Yes Time/GCodes Time In: 850 Time Out: 905 Total Billed Treatment Time: 15 Total Billed Treatment 1 visit FA 15 min SAQIB SINGH PT Oct 16, 2021 10:06
--- NOTE | 2021-10-16 11:04 | Occupational Ther Daily Note ---
OT Current Status-Daily Note Subjective Pt continues to be NPO, wants something to eat. Appearance Pt returned to sitting in recliner, all needs within reach. Mental Status/Objective Patient Orientation: Person, Place, Situation ADL-Treatment Therapy Code Descriptions/Definitions Functional [place] Measure: 0=Not Assessed/NA 4=Minimal Assistance 1=Total Assistance 5=Supervision or Setup 2=Maximal Assistance 6=Modified [place] 3=Moderate Assistance 7=Complete IndependenceSCALE: Activities may be completed with or without assistive devices. 5-Gungjlmkko-wlgaszh completes the activity by him/herself with no assistance from a helper. 5-Set-up or Clean-up Assistance-helper sets up or cleans up; patient completes activity. [place] assists only prior to or following the activity. 4-Supervision or Touching Assistance-helper provides verbal cues and/or touching/steadying and/or contact guard assistance as patient completes activity . Assistance may be provided throughout the activity or intermittently. 3-Partial/Moderate Assistance-helper does LESS THAN HALF the effort. [place] lifts, holds or supports trunk or limbs, but provides less than half the effort. 2-Substantial/Maximal Assistance-helper does MORE THAN HALF the effort. [place] lifts or holds trunk or limbs and provides more than half the effort. 8-Pkizixmxt-fnkwuw does ALL the effort. Patient does none of the effort to complete the activity. Or, the assistance of 2 or more helpers is required for the patient to complete the activity. If activity was not attempted, code reason: 7-Patient Refused. 9-Not Applicable-not attempted and the patient did not perform the activity before the current illness, exacerbation or injury. 10-Not Attempted due to Environmental Limitations-(lack of equipment, weather restraints, etc.). 88-Not Attempted due to Medical Conditions or Safety Concerns. Eating (QC): 88 (continues to be NPO) Oral Hygiene (QC): 5 (per patient report) Shower/Bathe Self (QC): 4 (Per patient report) Lower Body Dressing (QC): 5 On/Off Footwear: 6 Toileting Hygiene (QC): 6 Toilet Transfer (QC): 6 Pt states she had just finished a shower and brushing her teeth with SBA/set up for covering IV. While seated, she donned bilateral socks without assist. She stood, ambulated to the bathroom and performed all steps of toileting without assist. No c/o dizziness this date. Pt ambulated without AD, no LOB or safety concerns observed. Pt denies any self care concerns at this time. No further OT services needed. Education OT Patient Education: Energy conservation, Progress toward Goal/Update tx plan, Purpose of tx/functional activities Teaching Recipient: Patient Teaching Methods: Discussion Response to Teaching: Verbalize Understanding, Return Demonstration OT Skilled Nursing Goals Program Dir Goals Time Frame: Oct 24, 2021 Oral Hygiene (QC): 6 Toileting Hygiene (QC): 6 Shower/Bathe Self (QC): 6 Upper Body Dressing (QC): 6 Lower Body Dressing (QC): 6 On/Off Footwear (QC): 6 Additional Goals: 1-Demonstrate ADL Tasks, 2-Verbalize Understanding, 3-I mproveStrength/Caitlyn 1=Demonstrate adherence to instructed precautions during ADL tasks. 2=Patient will verbalize/demonstrate understanding of assistive devices/modifications for ADL. 3=Patient will improve strength/tolerance for activity to enable patient to perform ADL's. OT Education/Plan Problem List/Assessment Assessment: No Skilled OT Needs ID'd Discharge Recommendations Plan/Recommendations: Discharge/Goals Met Treatment Plan/Plan of Care Treatment,Training & Education: Yes Patient would benefit from OT for education, treatment and training to promote independence in ADL's, mobility, safety and/or upper extremity function for ADL's. Plan of Care: ADL Retraining, Functional Mobility, UE Funct Exercise/Act Treatment Duration: Oct 24, 2021 Frequency: 3 times per week (3-5x/wk) Estimated Hrs Per Day: .25 hour per day Rehab Potential: Fair Time/GCodes Start Time: 10:36 Stop Time: 10:44 Total Time Billed (hr/min): 8 Billed Treatment Time 1 visit ADL Christine Blackburn OT Oct 16, 2021 11:04
[2021-10-16 11:22] VITALS: BP 154/94
[2021-10-16] MEDS ORDERED: PROM25TA14 PO (11:46)
[2021-10-16] MEDS ORDERED: CLN.1T PO (11:46)
[2021-10-16] MEDS ORDERED: SUCR1TAB PO (11:46)
[2021-10-16] MEDS ORDERED: AMLO-250 PO (11:46)
[2021-10-16] MEDS ORDERED: POLY17PO54 PO (11:46)
--- NOTE | 2021-10-16 11:47 | Discharge Summary ---
Discharge Summary Hospital Course Problems/Dx: (1) Aspiration pneumonia (2) Pre-syncope (3) Nausea & vomiting Status: Acute Qualifiers: Qualified Codes: R11.2 - Nausea with vomiting, unspecified (4) Uncontrolled hypertension (5) Dizziness Status: Acute Hospital Course Date of Admission: Oct 11, 2021 at 18:27 Admission Diagnosis : Family Physician/Provider: [facility] Date of Discharge: 10/16/21 Discharge Diagnosis: CAMACHO, Dizziness, Labile and malignant HTN, Aspiration PNA, Unresponsive episode Hospital Course: Pt had a lengthy hospital course. Pt was admitted for dizziness and syncopal episode. Pt started experiencing abdominal pain, midepigastric pain with severe nausea and vomiting, and labile blood pressure. Pt had an unresponsive episode with aspiration. Antibiotics initiated. ICU transfer. Pt was ultimately stabilized and returned back to 4th floor. Pt then again had labile hypertension and was sent back up to ICU for IV Cardene drip. That was ultimately discontinued. Pt did well. Worked with PT and OT. Adam catheter removed. EGD showed gastritis. Carafate was added to the Protonix. Pt was deemed stable for discharge in improved condition. Labs and Pending Lab Test: Laboratory Tests 10/16/21 05:00: White Blood Count 8.3, Red Blood Count 3.80, Hemoglobin 11.4L, Hematocrit 35, Mean Corpuscular Volume 93, Mean Corpuscular Hemoglobin 30, Mean Corpuscular Hemoglobin Concent 32, Red Cell Distribution Width 14.3, Platelet Count 174, Mean Platelet Volume 8.5L, Immature Granulocyte % (Auto) 0, Neutrophils (%) (Auto) 64, Lymphocytes (%) (Auto) 26, Monocytes (%) (Auto) 7, Eosinophils (%) (Auto) 3, Basophils (%) (Auto) 0, Neutrophils # (Auto) 5.2, Lymphocytes # (Auto) 2.1, Monocytes # (Auto) 0.6, Eosinophils # (Auto) 0.3, Basophils # (Auto) 0.0, Immature Granulocyte # (Auto) 0.0 10/16/21 05:28: Sodium Level 142, Potassium Level 3.3L, Chloride Level 104, Carbon Dioxide Level 28, Anion Gap 10, Blood Urea Nitrogen 21H, Creatinine 0.72, Estimat Glomerular Filtration Rate 96, BUN/Creatinine Ratio 29, Glucose Level 97, Calcium Level 7.9L, Corrected Calcium 8.3L, Total Bilirubin 0.4, Aspartate Amino Transf (AST/S GOT) 31, Alanine Aminotransferase (ALT/SGPT) 57H, Alkaline Phosphatase 39L, Total Protein 6.1L, Albumin 3.5 Microbiology 10/14/21 MRSA Screen - Final, Complete MRSA not isolated 10/11/21 Blood Culture - Preliminary, Resulted Coryneform bacteria See Comments 10/11/21 Urine Culture - Final, Complete NO GROWTH Home Meds Active Sucralfate 1 Gram Tablet 1 Gm PO ACHS Polyethylene Glycol 3350 17 Gram Powd.pack 17 Gm PO TID Amlodipine Besylate 5 Mg Tablet 5 Mg PO DAILY Clonidine HCl 0.1 Mg Tablet 0.1 Mg PO Q4HR PRN Promethazine Tablet (Promethazine HCl) 25 Mg Tablet 25 Mg PO Q4H PRN Reported Pain Reliever Plus Tablet (Aspirin/Acetaminophen/Caffeine) 250 Mg-250 Mg-65 Mg Tablet 2 Ea PO Q6- 8H PRN Lisinopril 40 Mg Tablet 40 Mg PO DAILY Dicyclomine HCl 20 Mg Tablet 20 Mg PO ACHS Montelukast Sodium 10 Mg Tablet 10 Mg PO DAILY Pantoprazole Sodium 40 Mg Tablet.dr 40 Mg PO DAILY Aripiprazole 5 Mg Tablet 5 Mg PO DAILY Sertraline HCl 100 Mg Tablet 100 Mg PO DAILY Lovastatin 40 Mg Tablet 40 Mg PO DAILY Propranolol HCl 40 Mg Tablet 40 Mg PO 0800,1600 Trazodone HCl 100 Mg Tablet 200 Mg PO HS TAKES 2 (100MG) TABS Proair Hfa (Albuterol Sulfate) 8.5 Gm Hfa.aer.ad 2 Puff INH Q6H PRN Cetirizine HCl 10 Mg Tablet 10 Mg PO DAILY Assessment/Pt Instructions pcp 1 week Discharge Planning: <30 minutes discharge planning Discharge Instructions Discharge Diet: Liquid Diet Discharge Physical Examination Vital Signs Vital Signs Date Time Temp Pulse Resp B/P (MAP) Pulse Ox O2 Delivery O2 Flow Rate FiO2 10/16/21 11:22 36.8 64 18 154/94 (114) 100 Nasal Cannula 1.50 10/12/21 04:00 30 General Appearance: No Apparent Distress, WD/WN, Chronically ill, Obese Respiratory: Lungs Clear, Normal Breath Sounds Cardiovascular: Regular Rate, Rhythm Neurologic/Psychiatric: Alert, Oriented x3 Allergies: Coded Allergies: Penicillins (Verified Allergy, Unknown, 08/20/15) tuberculin, purified protein deriva (Verified Adverse Reaction, Mild, 08/20/15) Discharge Summary Date of Admission Oct 11, 2021 at 18:27 Date of Discharge Discharge Date: Oct 16, 2021 Admission Diagnosis Dizziness Abdominal pain N/V KEVIN HTN HLP Plan: Consult Cardiology and surgery Xray abd Check amylase and lipase Discharge Diagnosis Assessment: s/p respiratory distress due to aspiration due to CO2 narcosis from narcotic use and morbid obesity and high risk for KEVIN/OHS Aspiration PNA now DC abx Dizziness Headache N/V Mid-epigastric abdominal pain Obesity Depression Atypical chest pain consulted Cardiology Emotional problems with difficulty coping Labile HTN Plan: Consult Cardiology and surgery Xray abd Check amylase and lipase 10/11/21: CT reviewed Appreciate Surgery and Cardiology 10/12/21: IV abx DC adam Move to 4th floor 10/13/2021: EGD Ambulate Supportive care 10/14: Move back to floor Monitor BP 10/15: DC Adam DC Tely (1) Aspiration pneumonia (2) Pre-syncope (3) Nausea & vomiting Status: Acute Qualifiers: Qualified Codes: R11.2 - Nausea with vomiting, unspecified (4) Uncontrolled hypertension (5) Dizziness Status: Acute MANI THORNTON DO Oct 16, 2021 11:47
[2021-10-16] MEDS ORDERED: KCL 20 MEQ TAB (K-DUR) PO NR (12:00)
--- NOTE | 2021-10-16 14:56 | Progress Note - Surgery ---
Subjective Date Seen by a Provider: Oct 16, 2021 Time Seen by a Provider: 13:33 Subjective/Events-last exam Patient feeling better today. Not having any abdominal pain. She had multiple bowel movements. She is tolerating clears. She denies any nausea vomiting fever sweats chills shortness of breath or chest pain. She is wanting to go home. Objective Exam Vital Signs Date Time Temp Pulse Resp B/P (MAP) Pulse Ox O2 Delivery O2 Flow Rate FiO2 10/16/21 13:00 55 10/16/21 11:22 36.8 64 18 154/94 (114) 100 Nasal Cannula 1.50 10/16/21 08:09 97 Nasal Cannula 2.00 10/16/21 08:00 95 Nasal Cannula 1.50 10/16/21 07:44 36.8 62 18 127/80 (96) 95 Nasal Cannula 1.50 10/16/21 07:00 55 10/16/21 04:30 36.6 54 16 120/58 (78) 95 Nasal Cannula 1.50 10/16/21 01:00 50 10/15/21 23:25 36.3 50 18 117/56 (76) 96 Nasal Cannula 1.50 10/15/21 22:17 95 Nasal Cannula 1.50 10/15/21 20:30 95 Nasal Cannula 1.50 10/15/21 19:46 54 10/15/21 19:18 36.6 60 16 131/61 (84) 95 Nasal Cannula 1.50 10/15/21 18:39 97 Nasal Cannula 2.00 10/15/21 15:42 95 Nasal Cannula 2.00 10/15/21 15:18 36.4 59 16 123/70 (87) 95 Nasal Cannula 1.50 I & O 10/16/21 07:00 Intake Total 300 ml Output Total 350 ml Balance -50 ml Capillary Refill : Less Than 3 Seconds General Appearance: No Apparent Distress, WD/WN, Chronically ill, Obese HEENT: PERRL/EOMI, TMs Normal, Pharynx Normal Neck: Non Tender, Supple Respiratory: Chest Non Tender, No Accessory Muscle Use, No Respiratory Distress Cardiovascular: Regular Rate, Rhythm, No JVD Gastrointestinal: non tender, soft Extremity: Normal Range of Motion, Non Tender Neurologic/Psychiatric: Alert, Oriented x3, No Motor/Sensory Deficits, Normal Mood/Affect Skin: Normal Color, Warm/Dry Lymphatic: No Adenopathy Results Lab Laboratory Tests 10/16/21 05:00: White Blood Count 8.3, Red Blood Count 3.80, Hemoglobin 11.4L, Hematocrit 35, Mean Corpuscular Volume 93, Mean Corpuscular Hemoglobin 30, Mean Corpuscular Hemoglobin Concent 32, Red Cell Distribution Width 14.3, Platelet Count 174, Mean Platelet Volume 8.5L, Immature Granulocyte % (Auto) 0, Neutrophils (%) (Auto) 64, Lymphocytes (%) (Auto) 26, Monocytes (%) (Auto) 7, Eosinophils (%) (Auto) 3, Basophils (%) (Auto) 0, Neutrophils # (Auto) 5.2, Lymphocytes # (Auto) 2.1, Monocytes # (Auto) 0.6, Eosinophils # (Auto) 0.3, Basophils # (Auto) 0.0, Immature Granulocyte # (Auto) 0.0 10/16/21 05:28: Sodium Level 142, Potassium Level 3.3L, Chloride Level 104, Carbon Dioxide Level 28, Anion Gap 10, Blood Urea Nitrogen 21H, Creatinine 0.72, Estimat Glomerular Filtration Rate 96, BUN/Creatinine Ratio 29, Glucose Level 97, Calcium Level 7.9L, Corrected Calcium 8.3L, Total Bilirubin 0.4, Aspartate Amino Transf (AST/SGOT) 31, Alanine Aminotransferase (ALT/SGPT) 57H, Alkaline Phosphatase 39L , Total Protein 6.1L, Albumin 3.5 Microbiology 10/14/21 MRSA Screen - Final, Complete MRSA not isolated 10/11/21 Blood Culture - Preliminary, Resulted Coryneform bacteria See Comments 10/11/21 Urine Culture - Final, Complete NO GROWTH Assessment/Plan Assessment/Plan Assessment/Plan Epigastric abdominal painresolved nausea vomitingresolved Headacheresolved History of cholecystectomy Patient pain in the epigastric resolved. Had multiple bowel movements. I think this is more related to her pain. Informed her to continue using MiraLAX on as- needed basis. She is tolerating diet. Can advance as she tolerates. Okay to DC home from surgical standpoint. DANELLE SHERWOOD DO Oct 16, 2021 14:56
[2021-10-16 15:31] VITALS: BP 148/93
[2021-10-16 18:33] VITALS: BP 148/93
[2021-10-20] MEDS ORDERED: CLONIDINE PATCH REMOVAL TP SCH (11:00)
== END 2021-10-16 17:43 | disposition home or self-care (01) | DRG 178 ==
LOC: EDUNIT# 09:21 → ER 09:22 → UNDOADMOB 12:02 → 4TH 12:02 → UNDOADMOB 13:10 → ICU 10-11 18:27 → OBSVTOIN 10-11 18:27 → 4TH 10-11 18:27 → INTOOBSV 10-11 18:27 → ICU 10-12 11:55 → 4TH 10-12 11:55 → ICU 10-14 05:54 → 4TH 10-14 10:25 → ICU 10-14 10:25 → UNDODISIN 10-16 17:43
PROVIDERS: ADMIT Family Medicine; ATTEND Internal Medicine
PROC: 5A12012 Performance of Cardiac Output, Single, Manual (ICD-10-PCS; principal; 2021-10-11)
PROC: 5A12012 Performance of Cardiac Output, Single, Manual (ICD-10-PCS; 2021-10-11)
PROC: 0DB78ZX Excision of Stomach, Pylorus, Via Natural or Artificial Opening Endoscopic, Diagnostic (ICD-10-PCS; 2021-10-13)
DX: J69.0 Pneumonitis due to inhalation of food and vomit (principal); Z68.41 Body mass index [BMI] 40.0-44.9, adult; R42 Dizziness and giddiness; E66.01 Morbid (severe) obesity due to excess calories; K29.70 Gastritis, unspecified, without bleeding; E87.6 Hypokalemia; I10 Essential (primary) hypertension; E78.00 Pure hypercholesterolemia, unspecified; G47.33 Obstructive sleep apnea (adult) (pediatric); F41.9 Anxiety disorder, unspecified; F32.A Depression, unspecified; J44.9 Chronic obstructive pulmonary disease, unspecified; G40.909 Epilepsy, unspecified, not intractable, without status epilepticus; K21.9 Gastro-esophageal reflux disease without esophagitis; E11.9 Type 2 diabetes mellitus without complications; H93.19 Tinnitus, unspecified ear; H54.7 Unspecified visual loss; E03.9 Hypothyroidism, unspecified; G25.81 Restless legs syndrome; R07.89 Other chest pain; Z86.11 Personal history of tuberculosis; Z88.0 Allergy status to penicillin; Z88.8 Allergy status to other drugs, medicaments and biological substances
CPT/HCPCS: 36410; 36415; 36600; 70450; 71045; 74018; 74022; 74160; 76937; 80053; 81000; 82150; 82805; 82947; 83605; 83690; 83735; 83880; 84100; 84145; 84443; 84484; 85025; 85379; 86141; 87040; 87081; 87088; 93005; 93041; 93306; 93880; 94640; 94760; G0378

== ENCOUNTER 2022-04-26 23:10 | Emergency (ER) | payer MEDICAID ==
[~2022-04-26] VITALS: Ht 157.4 cm; Wt 88.4 kg
[~2022-04-26 23:10] MED LIST changes: +ALBU8.5H6 INH; +AMLO-250 PO; +CLN.1T PO; +LISI40TA9 PO; +POLY17PO54 PO; +PROM25TA14 PO; -RT-ALBUINH INH; +SUCR1TAB PO; +[UNRECOGNIZED DRUG - CODE] PO
--- NOTE | 2022-04-26 23:46 | ED Abdominal Pain ---
General Chief Complaint: Abdominal/GI Problems Stated Complaint: LOWER ABD PAIN/RECTAL BLEEDING Nursing Triage Note: PT AMB TO RM 5 WITH CC OF LOWER ABD PAIN AND BLOOD IN HER STOOL THAT BEGAN 1 HOUR AGO. PT DENIES N/V/D. PT STATES TOOK IBUPROFEN AROUND 2100 Source of Information: Patient Exam Limitations: No Limitations History of Present Illness Date Seen by Provider: Apr 26, 2022 Time Seen by Provider: 23:35 Initial Comments Patient is a 61-year-old female who presents to the emergency department with a chief complaint of severe lower abdominal pain, she describes as "burning". She is a little nauseous. Movement makes the pain much worse. It started approximately an hour prior to arrival. She went to the bathroom, had a bowel movement and urinated and noticed blood in the toilet. She is not 100% sure if the blood came from her rectum or her urine. She has never had pain quite like this before. She has had prior C-sections and hysterectomy "years ago. She is unsure whether or not she still has an appendix. No recent fevers or chills. No burning with urination. She had taken some ibuprofen around 9 PM. She tells me she has a history of anemia and high blood pressure. All other review of systems reviewed and negative except as stated Timing/Duration: 1 Hour Severity/Quality: Severe, Burning Location: Suprapubic Radiation: No Radiation Activities at Onset: None Modifying Factors: Worsens With Breathing, Worsens With Movement Associated Symptoms: Nausea/Vomiting (mild nausea) Allergies and Home Medications Allergies Coded Allergies: Penicillins (Verified Allergy, Unknown, 08/20/15) tuberculin, purified protein deriva (Verified Adverse Reaction, Mild, 08/20/15) Patient Home Medication List Home Medication List Reviewed: Yes Albuterol Sulfate (Ventolin Hfa) 8.5 Gm Hfa.aer.ad, 2 PUFF INH Q6H PRN for SHORTNESS OF BREATH, (Reported) Entered as Reported by: MARTHA IVAN on 08/20/15 1428 Amlodipine Besylate (Amlodipine Besylate) 5 Mg Tablet, 5 MG PO DAILY Prescribed by: MANI THORNTON on 10/16/21 1146 Aripiprazole (Aripiprazole) 5 Mg Tablet, 5 MG PO DAILY, (Reported) Entered as Reported by: CAL MARTINEZ on 08/13/21 0957 Aspirin/Acetaminophen/Caffeine (Pain Reliever Plus Tablet) 250 Mg-250 Mg-65 Mg Tablet, 2 EA PO Q6- 8H PRN for HEADACHE, (Reported) Entered as Reported by: CAL MARTINEZ on 10/09/21 1502 Cetirizine HCl (Cetirizine HCl) 10 Mg Tablet, 10 MG PO DAILY, (Reported) Entered as Reported by: MARTHA IVAN on 08/20/15 1428 Clonidine HCl (Clonidine HCl) 0.1 Mg Tablet, 0.1 MG PO Q4HR PRN for SBP>170 Prescribed by: MANI THORNTON on 10/16/21 114 Dicyclomine HCl (Dicyclomine HCl) 20 Mg Tablet, 20 MG PO ACHS, (Reported) Entered as Reported by: CAL MARTINEZ on 08/13/21 09 Lisinopril (Lisinopril) 40 Mg Tablet, 40 MG PO DAILY, (Reported) Entered as Reported by: CAL MARTINEZ on 10/09/21 150 Lovastatin (Lovastatin) 40 Mg Tablet, 40 MG PO DAILY, (Reported) Entered as Reported by: MARTHA IVAN on 01/25/18926 Montelukast Sodium (Montelukast Sodium) 10 Mg Tablet, 10 MG PO DAILY, (Reported) Entered as Reported by: CAL MARTINEZ on 08/13/21956 Pantoprazole Sodium (Pantoprazole Sodium) 40 Mg Tablet.dr, 40 MG PO DAILY, (Reported) Entered as Reported by: CAL MARTINEZ on 08/13/21956 Polyethylene Glycol 3350 (Polyethylene Glycol 3350) 17 Gram Powd.pack, 17 GM PO TID Prescribed by: MANI THORNTON on 10/16/21 114 Promethazine HCl (Promethazine Tablet) 25 Mg Tablet, 25 MG PO Q4H PRN for NAUSEA/VOMITING-2ND LINE Prescribed by: MANI THORNTON on 10/16/21 114 Propranolol HCl (Propranolol HCl) 40 Mg Tablet, 40 MG PO 0800,1600, (Reported) Entered as Reported by: MARTHA IVAN on 01/25/18 09 Sertraline HCl (Sertraline HCl) 100 Mg Tablet, 100 MG PO DAILY, (Reported) Entered as Reported by: HUSSEIN GONZALES on 08/12/21 1800 Sucralfate (Sucralfate) 1 Gram Tablet, 1 GM PO ACHS Prescribed by: MANI THORNTON on 10/16/21 1146 Trazodone HCl (Trazodone HCl) 100 Mg Tablet, 200 MG PO HS, (Reported) Entered as Reported by: MARTAH IVAN on 01/25/18 0927 Review of Systems Review of Systems Constitutional: see HPI EENTM: No Symptoms Reported Respiratory: No Symptoms Reported Cardiovascular: No Symptoms Reported Gastrointestinal: Abdominal Pain, Nausea, Other (blood from stool? or urine) Genitourinary: No Symptoms Reported Musculoskeletal: no symptoms reported Skin: no symptoms reported Psychiatric/Neurological: Anxiety Past Hhsajxp-Geqsrl-Cbhapy Hx Patient Social History Tobacco Use?: No Substance use?: No Alcohol Use?: No Pt feels they are or have been: No Immunizations Up To Date Tetanus Booster (TDap): Unknown PED Vaccines UTD: Yes First/Initial COVID19 Vaccinat: 07/2021 Second COVID19 Vaccination James: 07/3021 Third COVID19 Vaccination Date: 07/2021 Seasonal Allergies Seasonal Allergies: No Past Medical History Surgery/Hospitalization HX: APPY,KENNEDY, , HYSTERECTOMY, OOPHERECTOMY, TB, HTN, HIGH CHOLESTEROL, CAMACHO, SYNCOPE, KEVIN, GERD, DIVERTICULITIS, CHRONIC BACK PAIN, ANXIETY, DEPRESSION. Surgeries: Yes Abdominal, Appendectomy, Section, Gallbladder, 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, Oophorect rubén, 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 Respiratory: Yes (TESTED + FOR TB IN 1995--S/P 6 MONTHS OF TREATMENT) Asthma, Sleep Apnea, COPD, Tuberculosis Currently Using CPAP: Yes Currently Using BIPAP: No Cardiac: Yes High Cholesterol, Hypertension, Syncope Neurological: Yes (CHILDHOOD SEIZURES) Headaches /Migraines, Seizure Disorder, Vertigo Reproductive Disorders: Yes (HYST/BSO) Female Reproductive Disorders: Denies [employer] History: 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, 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 Sexually Transmitted Disease: No HIV/AIDS: No Genitourinary: Yes UTI-Chronic Gastrointestinal: Yes Gastroesophageal Reflux, Obstructive Bowel, Diverticulosis, Ulcer Musculoskeletal: Yes Chronic Back Pain Endocrine: No Diabetes, Non-Insulin dep HEENT: Yes Tinnitis Loss of Vision: Denies Hearing Impairment: Denies Cancer: No Psychosocial: Yes Anxiety, Suicide Attempts, Depression Integumentary: Yes (intertrigo) Blood Disorders: No Adverse Reaction/Blood Tranf: No Family Medical History Congenital heart disease G8 SISTER (HOLE IN HEART ) Neoplasm 19 MOTHER (STOMACH ) G8 BROTHER (STOMACH) No Pertinent Family Hx Physical Exam Vital Signs Vital Signs - First Documented 04/26/22 23:22 Temp 36.0 Pulse 92 Resp 24 B/P (MAP) 135/101 (112) Pulse Ox 96 O2 Delivery Room Air Capillary Refill : Less Than 3 Seconds Height/Weight/BMI Height: 5'2.00" Weight: 168lbs. 0oz. 76.230042hx; 35.00 BMI Method:Stated General Appearance: WD/WN, moderate distress HEENT: PERRL/EOMI Respiratory: lungs clear, normal breath sounds, no respiratory distress, no accessory muscle use Cardiovascular: regular rate, rhythm Gastrointestinal: abnormal bowel sounds (hypoactive), tenderness (suprapubic, significant Lower abdominal tenderness; nondistended) Genital/Rectal: normal rectal tone (heme neg stool) Extremities: normal range of motion, normal inspection, no pedal edema Neurologic/Psychiatric: alert, oriented x 3, other (anxious) Skin: normal color, warm/dry Progress/Results/Core Measures Results/Orders Lab Results Laboratory Tests Test 04/27/22 00:20 04/27/22 00:22 Range/Units White Blood Count 10.2 4.3-11.0 10^3/uL Red Blood Count 4.02 3.80-5.11 10^6/uL Hemoglobin 11.8 11.5-16.0 g/dL Hematocrit 35 35-52 % Mean Corpuscular Volume 88 80-99 fL Mean Corpuscular Hemoglobin 29 25-34 pg Mean Corpuscular Hemoglobin Concent 34 32-36 g/dL Red Cell Distribution Width 15.9 H 10.0-14.5 % Platelet Count 242 130-400 10^3/uL Mean Platelet Volume 8.9 L 9.0-12.2 fL Immature Granulocyte % (Auto) 0 % Neutrophils (%) (Auto) 59 42-75 % Lymphocytes (%) (Auto) 30 12-44 % Monocytes (%) (Auto) 7 0-12 % Eosinophils (%) (Auto) 4 0-10 % Basophils (%) (Auto) 0 0-10 % Neutrophils # (Auto) 6.0 1.8-7.8 10^3/uL Lymphocytes # (Auto) 3.1 1.0-4.0 10^3/uL Monocytes # (Auto) 0.7 0.0-1.0 10^3/uL Eosinophils # (Auto) 0.4 H 0.0-0.3 10^3/uL Basophils # (Auto) 0.0 0.0-0.1 10^3/uL Immature Granulocyte # (Auto) 0.0 0.0-0.1 10^3/uL Sodium Level 134 L 135-145 MMOL/L Potassium Level 4.7 3.6-5.0 MMOL/L Chloride Level 102 98-107 MMOL/L Carbon Dioxide Level 16 L 21-32 MMOL/L Anion Gap 16 H 5-14 MMOL/L Blood Urea Nitrogen 19 H 7-18 MG/DL Creatinine 1.14 0.60-1.30 MG/DL Estimat Glomerular Filtration Rate 55 BUN/Creatinine Ratio 17 Glucose Level 119 H 70-105 MG/DL Calcium Level 9.4 8.5-10.1 MG/DL Corrected Calcium 9.1 8.5-10.1 MG/DL Total Bilirubin 0.3 0.1-1.0 MG/DL Aspartate Amino Transf (AST/SGOT) 24 5-34 U/L Alanine Aminotransferase (ALT/SGPT) 22 0-55 U/L Alkaline Phosphatase 63 40-136 U/L Total Protein 8.3 H 6.4-8.2 GM/DL Albumin 4.4 3.2-4.5 GM/DL Urine Color YELLOW Urine Clarity CLEAR Urine pH 5.5 5-9 Urine Specific [place] 1.015 L 1.016-1.022 Urine Protein NEGATIVE NEGATIVE Urine Glucose (UA) NEGATIVE NEGATIVE Urine Ketones NEGATIVE NEGATIVE Urine Nitrite NEGATIVE NEGATIVE Urine Bilirubin NEGATIVE NEGATIVE Urine Urobilinogen 0.2 < = 1.0 MG/DL Urine Leukocyte Esterase 1+ H NEGATIVE Urine RBC (Auto) NEGATIVE NEGATIVE Urine RBC NONE /HPF Urine WBC 0-2 /HPF Urine Squamous Epithelial Cells 2-5 /HPF Urine Crystals NONE /LPF Urine Bacteria FEW H /HPF Urine Casts NONE /LPF Urine Mucus NEGATIVE /LPF Urine Culture Indicated YES My Orders Orders - NOEL RODRIGUEZ MD Ed Iv/Invasive Line Start (04/26/22 23:53) Cbc With Automated Diff (04/26/22 23:53) Comprehensive Metabolic Panel (04/26/22 23:53) Ua Culture If Indicated (04/26/22 23:53) Fecal Occult Bedside (04/26/22 23:53) Morphine Injection (Morphine Injection (04/26/22 23:53) Ct Abdomen/Pelvis Wo (04/27/22 00:21) Urine Culture (04/27/22 00:22) Fentanyl Inj (Sublimaze Injection) (04/27/22 01:00) Medications Given in ED Current Medications Medications Dose Ordered Sig/Anabel Route Start Time Stop Time Status Last Admin Dose Admin Fentanyl Citrate 50 mcg ONCE ONCE IVP 04/27/22 01:00 04/27/22 01:01 DC 04/27/22 01:00 50 MCG Vital Signs/I&O 04/26/22 23:22 Temp 36.0 Pulse 92 Resp 24 B/P (MAP) 135/101 (112) Pulse Ox 96 O2 Delivery Room Air Blood Pressure Mean: 112 Progress Progress Note : Time: 01:41 Progress Note Patient reevaluated, resting more comfortably. Labs reviewed and are reassuring. No significant leukocytosis or abnormal findings on her CBC. Chemistry, renal function and electrolytes. Urinalysis does not reveal infection. CT abdomen and pelvis noncontrast does not show any acute intra- abdominal pathology. Her hemoglobin is stable, her urinalysis does not show any evidence of hematuria. Her digital rectal exam was negative for blood. Going to give her some Levsin prior to discharge for any residual abdominal cramping/discomfort. Recommend Tylenol at home and follow-up with her primary care physician this week. Findings and plan of care discussed with the patient. Her neighbor who has accompanied her on this visit is with her and I also discussed follow-up with her. Patient lives at home with her . Neighbor is going to take her home. Return precautions provided Diagnostic Imaging Diagonstic Imaging: CT Comments reading per [facility] - no acute findings Departure Impression Primary Impression: Abdominal pain Qualified Codes: R10.30 - Lower abdominal pain, unspecified Disposition: HOME, SELF-CARE Condition: Improved Departure-Patient Inst. Decision time for Depature: 01:43 Referrals: [facility] (PCP/Family) Primary Care Physician Patient Instructions: Abdominal Pain, Adult ED Add. Discharge Instructions: Drink plenty of fluids to stay well-hydrated. Take [id number]-hyamstp Tylenol extra strength, 2 tablets every 6 hours as needed or ibuprofen, 3 tablets which is 600 mg every 6 hours with food as needed for pain. Continue your regular home medications. Return to the emergency room if you develop a fever especially with worsening pain, vomiting or any other emergent, concerning symptoms. Copy Copies To 1: ELVIA RUIZ KATHRYN M MD Apr 26, 2022 23:46
[2022-04-26] MEDS ORDERED: morphine INJ 10 MG/ML 1ML (SYR OR VIAL) IM STA (23:53)
[2022-04-27 00:28] LABS: BASOPHILS % (AUTO) 0 % (0-10); EOSINOPHILS # (AUTO) 0.4 10^3/uL (0.0-0.3); EOSINOPHILS % (AUTO) 4 % (0-10); HEMATOCRIT 35 % (35-52); HEMOGLOBIN 11.8 g/dL (11.5-16.0); LYMPHOCYTES # (AUTO) 3.1 10^3/uL (1.0-4.0); LYMPHOCYTES % (AUTO) 30 % (12-44); MEAN CORPUSCULAR HEMOGLOBIN 29 pg (25-34); MEAN CORPUSCULAR HGB CONC 34 g/dL (32-36); MEAN CORPUSCULAR VOLUME 88 fL (80-99); MEAN PLATELET VOLUME 8.9 fL (9.0-12.2); MONOCYTES # (AUTO) 0.7 10^3/uL (0.0-1.0); MONOCYTES % (AUTO) 7 % (0-12); NEUTROPHILS % (AUTO) 59 % (42-75); PLATELET COUNT 242 10^3/uL (130-400); WHITE BLOOD COUNT 10.2 10^3/uL (4.3-11.0)
[2022-04-27 00:30] LABS: BILIRUBIN,URINE NEGATIVE (NEGATIVE); CLARITY,URINE CLEAR; COLOR,URINE YELLOW; GLUCOSE, URINE (UA) NEGATIVE (NEGATIVE); KETONES,URINE NEGATIVE (NEGATIVE); LEUKOCYTE ESTERASE ,URINE 1+ (NEGATIVE); NITRITE,URINE NEGATIVE (NEGATIVE); PH,URINE 5.5 (5-9); PROTEIN,URINE NEGATIVE (NEGATIVE)
[2022-04-27 00:35] LABS: ALBUMIN 4.4 GM/DL (3.2-4.5); POTASSIUM 4.7 MMOL/L (3.6-5.0)
[2022-04-27 00:36] LABS: CALCIUM 9.4 MG/DL (8.5-10.1)
[2022-04-27 00:38] LABS: TOTAL PROTEIN 8.3 GM/DL (6.4-8.2)
[2022-04-27 00:39] LABS: BILIRUBIN,TOTAL 0.3 MG/DL (0.1-1.0)
[2022-04-27 00:41] LABS: CREATININE SERUM 1.14 MG/DL (0.60-1.30)
[2022-04-27 00:46] LABS: BACTERIA,URINE FEW /HPF; WBC,URINE 0-2 /HPF
[2022-04-27] MEDS ORDERED: fentaNYL INJ 100 MCG/2 ML AMP IVP ONE (01:00)
[2022-04-27] MEDS ORDERED: HYOSCYAMINE 0.125 MG/ML (LEVSIN) 15ML BTL PO STA (01:44)
[2022-04-27] MEDS ORDERED: KETOROLAC 30 MG/ML VIAL IVP ONE (01:45)
[2022-04-27] MEDS ORDERED: HYOSCYAMINE 0.125 MG (LEVSIN) TAB PO ONE (02:00)
[2022-04-27 02:10] VITALS: BP 125/70
--- NOTE | 2022-04-27 07:38 | Diagnostic Imaging Report ---
PROCEDURE: CT abdomen and pelvis without contrast. TECHNIQUE: Multiple contiguous axial images were obtained through the abdomen and pelvis without the use of intravenous contrast. Auto Exposure Controls were utilized during the CT exam to meet ALARA standards for radiation dose reduction. INDICATION: 61-year-old female, lower abdominal pain. CORRELATION STUDY: 10/11/2021 FINDINGS: LOWER THORAX: Clear. LIVER: Unremarkable. GALLBLADDER: Cholecystectomy. SPLEEN: Unremarkable. PANCREAS: Unremarkable. ADRENAL GLANDS: Unremarkable. KIDNEYS: Normal configuration. No calcification or obstruction. ABDOMINAL AORTA: Unremarkable, nonaneurysmal. Note of a small, recanalized umbilical vein. GASTROINTESTINAL TRACT: No gastrointestinal tract obstruction or definitive inflammation. No abdominal ascites and/or free air. URINARY BLADDER: Unremarkable. REPRODUCTIVE: 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. OSSEOUS STRUCTURES: Mildly advanced the lower lumbar spine degenerative change. OTHER: None. IMPRESSION: 1. Negative for acute abnormality of the abdomen or pelvis. Initial report was provided by [facility]. Dictated by: Dictated on workstation # [id number]
== END 2022-04-27 02:10 | disposition home or self-care (01) ==
LOC: EDUNIT# 23:10 → ER 23:12
DX: R10.30 Lower abdominal pain, unspecified (principal); G47.30 Sleep apnea, unspecified; Z90.49 Acquired absence of other specified parts of digestive tract; Z28.310 Unvaccinated for COVID-19; Z99.89 Dependence on other enabling machines and devices
CPT/HCPCS: 36415; 74176; 80053; 81000; 82274; 85025; 87088

== ENCOUNTER 2022-06-26 13:05 | Emergency (ER) | payer MEDICAID, MEDICARE ==
[~2022-06-26] VITALS: Ht 157 cm; Wt 96.0 kg
--- NOTE | 2022-06-26 13:17 | ED Abdominal Pain ---
General Chief Complaint: Abdominal/GI Problems Stated Complaint: ABD PAIN History of Present Illness Date Seen by Provider: Jun 26, 2022 Time Seen by Provider: 13:17 Initial Comments 61-year-old female presents with left lower quadrant abdominal pain. She reports been going on for about 3 days. Reports that she went to her primary care provider and they checked her urine and it was negative. They sent her here for further evaluation. She denies any nausea, vomiting or diarrhea. The pains mainly left lower quadrant little bit in the left upper quadrant. No reports of fevers or chills. She reports it is constant. Allergies and Home Medications Allergies Coded Allergies: Penicillins (Verified Allergy, Unknown, 08/20/15) tuberculin, purified protein deriva (Verified Adverse Reaction, Mild, 08/20/15) Patient Home Medication List Home Medication List Reviewed: Yes Albuterol Sulfate (Ventolin Hfa) 8.5 Gm Hfa.aer.ad, 2 PUFF INH Q6H PRN for SHORTNESS OF BREATH, (Reported) Entered as Reported by: MARTHA IVAN on 08/20/15 1428 Amlodipine Besylate (Amlodipine Besylate) 5 Mg Tablet, 5 MG PO DAILY Prescribed by: MANI THORNTON on 10/16/21 1146 Aripiprazole (Aripiprazole) 5 Mg Tablet, 5 MG PO DAILY, (Reported) Entered as Reported by: CAL MARTINEZ on 08/13/21 0957 Aspirin/Acetaminophen/Caffeine (Pain Reliever Plus Tablet) 250 Mg-250 Mg-65 Mg Tablet, 2 EA PO Q6- 8H PRN for HEADACHE, (Reported) Entered as Reported by: CAL MARTINEZ on 10/09/21 1502 Cetirizine HCl (Cetirizine HCl) 10 Mg Tablet, 10 MG PO DAILY, (Reported) Entered as Reported by: MARTHA IVAN on 08/20/15 1428 Clonidine HCl (Clonidine HCl) 0.1 Mg Tablet, 0.1 MG PO Q4HR PRN for SBP>170 Prescribed by: MANI THORNTON on 10/16/21 1146 Dicyclomine HCl (Dicyclomine HCl) 20 Mg Tablet, 20 MG PO ACHS, (Reported) Entered as Reported by: CAL MARTINEZ on 08/13/21 0957 Lisinopril (Lisinopril) 40 Mg Tablet, 40 MG PO DAILY, (Reported) Entered as Reported by: CAL MARTINEZ on 10/09/21 1502 Lovastatin (Lovastatin) 40 Mg Tablet, 40 MG PO DAILY, (Reported) Entered as Reported by: MARTHA IVAN on 01/25/18926 Montelukast Sodium (Montelukast Sodium) 10 Mg Tablet, 10 MG PO DAILY, (Reported) Entered as Reported by: CAL MARTINEZ on 08/13/21956 Pantoprazole Sodium (Pantoprazole Sodium) 40 Mg Tablet.dr, 40 MG PO DAILY, (Reported) Entered as Reported by: CAL MARTINEZ on 08/13/21956 Polyethylene Glycol 3350 (Polyethylene Glycol 3350) 17 Gram Powd.pack, 17 GM PO TID Prescribed by: MANI THORNTON on 10/16/21 114 Promethazine HCl (Promethazine Tablet) 25 Mg Tablet, 25 MG PO Q4H PRN for NAUSEA/VOMITING-2ND LINE Prescribed by: MANI THORNTON on 10/16/21 114 Propranolol HCl (Propranolol HCl) 40 Mg Tablet, 40 MG PO 0800,1600, (Reported) Entered as Reported by: MARTHA IVAN on 01/25/18926 Sertraline HCl (Sertraline HCl) 100 Mg Tablet, 100 MG PO DAILY, (Reported) Entered as Reported by: HUSSEIN GONZALES on 08/12/21 1800 Sucralfate (Sucralfate) 1 Gram Tablet, 1 GM PO ACHS Prescribed by: MANI THORNTON on 10/16/21 114 Trazodone HCl (Trazodone HCl) 100 Mg Tablet, 200 MG PO HS, (Reported) Entered as Reported by: MARTHA IVAN on 01/25/18926 Review of Systems Review of Systems Constitutional: No chills, No fever Respiratory: Denies Cough, Denies Shortness of Air Cardiovascular: Denies Chest Pain, Denies Palpitations Gastrointestinal: Abdominal Pain; Denies Diarrhea, Denies Nausea, Denies Vomiting Genitourinary: No Symptoms Reported; Denies Flank Pain Musculoskeletal: no symptoms reported Skin: no symptoms reported Psychiatric/Neurological: No Symptoms Reported Endocrine: No Symptoms Reported Past Aewvmco-Wjiwgx-Vjpjkm Hx Immunizations Up To Date Tetanus Booster (TDap): Unknown PED Vaccines UTD: Yes First/Initial COVID19 Vaccinat: 07/2021 Second COVID19 Vaccination James: 07/3021 Third COVID19 Vaccination Date: 07/2021 Seasonal Allergies Seasonal Allergies: No Past Medical History Surgery/Hospitalization HX: APPY,KENNEDY, , HYSTERECTOMY, OOPHERECTOMY, TB, HTN, HIGH CHOLESTEROL, CAMACHO, SYNCOPE, KEVIN, GERD, DIVERTICULITIS, CHRONIC BACK PAIN, ANXIETY, DEPRESSION. Surgeries: Yes Abdominal, Appendectomy, Section, Gallbladder, 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, Oophorectomy, 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 Respiratory: Yes (TESTED + FOR TB IN 1995--S/P 6 MONTHS OF TREATMENT) Asthma, Sleep Apnea, COPD, Tuberculosis Currently Using CPAP: Yes Currently Using BIPAP: No Cardiac: Yes High Cholesterol, Hypertension, Syncope Neurological: Yes (CHILDHOOD SEIZURES) Headaches /Migraines, Seizure Disorder, Vertigo Reproductive Disorders: Yes (HYST/BSO) Female Reproductive Disorders: Denies [employer] History: 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, 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 Sexually Transmitted Disease: No HIV/AIDS: No Genitourinary: Yes UTI-Chronic Gastrointestinal: Yes Gastroesophageal Reflux, Obstructive Bowel, Diverticulosis, Ulcer Musculoskeletal: Yes Chronic Back Pain Endocrine: No Diabetes, Non-Insulin dep HEENT: Yes Tinnitis Loss of Vision: Denies Hearing Impairment: Denies Cancer: No Psychosocial: Yes Anxiety, Suicide Attempts, Depression Integumentary: Yes (intertrigo) Blood Disorders: No Adverse Reaction/Blood Tranf: No Family Medical History Congenital heart disease G8 SISTER (HOLE IN HEART ) Neoplasm 19 MOTHER (STOMACH ) G8 BROTHER (STOMACH) No Pertinent Family Hx Physical Exam Vital Signs Vital Signs - First Documented 06/26/22 13:05 Temp 36.8 Pulse 72 Resp 26 B/P (MAP) 125/111 (116) Pulse Ox 96 O2 Delivery Room Air Capillary Refill : Height/Weight/BMI Height: 5'2.00" Weight: 168lbs. 0oz. [id number]; 35.00 BMI Method:Stated General Appearance: mild distress Neck: full range of motion, supple Respiratory: normal breath sounds, no respiratory distress Cardiovascular: normal peripheral pulses, regular rate, rhythm Gastrointestinal: soft, tenderness (Left lower quadrant) Neurologic/Psychiatric: alert, normal mood/affect, oriented x 3 Skin: normal color, warm/dry Progress/Results/Core Measures Results/Orders Lab Results Laboratory Tests Test 2/24/23 13:18 06/26/22 13:31 Range/Units White Blood Count 10.6 4.3-11.0 10^3/uL Red Blood Count 3.97 3.80-5.11 10^6/uL Hemoglobin 11.9 11.5-16.0 g/dL Hematocrit 35 35-52 % Mean Corpuscular Volume 88 80-99 fL Mean Corpuscular Hemoglobin 30 25-34 pg Mean Corpuscular Hemoglobin Concent 34 32-36 g/dL Red Cell Distribution Width 13.7 10.0-14.5 % Platelet Count 259 130-400 10^3/uL Mean Platelet Volume 9.0 9.0-12.2 fL Immature Granulocyte % (Auto) 0 % Neutrophils (%) (Auto) 71 42-75 % Lymphocytes (%) (Auto) 21 12-44 % Monocytes (%) (Auto) 5 0-12 % Eosinophils (%) (Auto) 2 0-10 % Basophils (%) (Auto) 0 0-10 % Neutrophils # (Auto) 7.6 1.8-7.8 10^3/uL Lymphocytes # (Auto) 2.3 1.0-4.0 10^3/uL Monocytes # (Auto) 0.5 0.0-1.0 10^3/uL Eosinophils # (Auto) 0.2 0.0-0.3 10^3/uL Basophils # (Auto) 0.0 0.0-0.1 10^3/uL Immature Granulocyte # (Auto) 0.0 0.0-0.1 10^3/uL Sodium Level 138 135-145 MMOL/L Potassium Level 4.7 3.6-5.0 MMOL/L Chloride Level 105 98-107 MMOL/L Carbon Dioxide Level 21 21-32 MMOL/L Anion Gap 12 5-14 MMOL/L Blood Urea Nitrogen 14 7-18 MG/DL Creatinine 0.84 0.60-1.30 MG/DL Estimat Glomerular Filtration Rate 80 BUN/Creatinine Ratio 17 Glucose Level 120 H 70-105 MG/DL Calcium Level 9.1 8.5-10.1 MG/DL Corrected Calcium 9.1 8.5-10.1 MG/DL Total Bilirubin 0.3 0.1-1.0 MG/DL Aspartate Amino Transf (AST/SGOT) 15 5-34 U/L Alanine Aminotransferase (ALT/SGPT) 14 0-55 U/L Alkaline Phosphatase 55 40-136 U/L C-Reactive Protein High Sensitivity 4.19 H 0.00-0.50 MG/DL Total Protein 7.9 6.4-8.2 GM/DL Albumin 4.0 3.2-4.5 GM/DL Urine Color YELLOW Urine Clarity SL CLOUDY Urine pH 6.0 5-9 Urine Specific [place] >=1.030 1.016-1.022 Urine Protein NEGATIVE NEGATIVE Urine Glucose (UA) NEGATIVE NEGATIVE Urine Ketones NEGATIVE NEGATIVE Urine Nitrite NEGATIVE NEGATIVE Urine Bilirubin NEGATIVE NEGATIVE Urine Urobilinogen 0.2 < = 1.0 MG/DL Urine Leukocyte Esterase NEGATIVE NEGATIVE Urine RBC (Auto) TRACE-I H NEGATIVE Urine RBC 0-2 /HPF Urine WBC NONE /HPF Urine Squamous Epithelial Cells 5-10 /HPF Urine Crystals NONE /LPF Urine Amorphous Sediment FEW RAMIRO URATES H /LPF Urine Bacteria TRACE /HPF Urine Casts NONE /LPF Urine Mucus NEGATIVE /LPF Urine Culture Indicated NO My Orders Orders - STARK,GANESH L DO Cbc With Automated Diff (06/26/22 13:17) Comprehensive Metabolic Panel (06/26/22 13:17) Hs C Reactive Protein (06/26/22 13:17) Ua Culture If Indicated (06/26/22 13:17) Ondansetron Injection (Zofran Injectio (06/26/22 13:30) Ed Iv/Invasive Line Start (06/26/22 13:17) Morphine Injection (Morphine Injection (06/26/22 13:30) Ct Abdomen/Pelvis W (06/26/22 13:55) Iohexol Injection (Omnipaque 350 Mg/Ml 1 (06/26/22 14:00) Received Contrast (Hold Metformin- Contr (06/26/22 14:00) Ns (Ivpb) (Sodium Chloride 0.9% Ivpb Bag (06/26/22 14:00) Ketorolac Injection (Toradol Injection) (06/26/22 14:11) Medications Given in ED Current Medications Medications Dose Ordered Sig/Anabel Route Start Time Stop Time Status Last Admin Dose Admin Iohexol 100 ml ONCE ONCE IV 06/26/22 14:00 06/26/22 14:05 DC 06/26/22 14:37 80 ML Morphine Sulfate 2 mg ONCE ONCE IVP 06/26/22 13:30 06/26/22 13:31 DC 06/26/22 13:24 2 MG Ondansetron HCl 4 mg ONCE ONCE IVP 06/26/22 13:30 06/26/22 13:31 DC 06/26/22 13:23 4 MG Sodium Chloride 100 ml ONCE ONCE IV 06/26/22 14:00 06/26/22 14:05 DC 06/26/22 14:37 80 ML Vital Signs/I&O 06/26/22 13:05 Temp 36.8 Pulse 72 Resp 26 B/P (MAP) 125/111 (116) Pulse Ox 96 O2 Delivery Room Air Progress Progress Note : Progress Note Patient's labs were reviewed and were normal except for slightly elevated CRP. CT abdomen pelvis was obtained due to patient having moderate to significant pain. CT was reviewed and shows concerns for colitis versus diverticulitis. Due to the amount of pain patient is having and elevated CRP I will empirically treat her for diverticulitis. We will provide her with some pain medicine along with some nausea medicine. I also discussed with her the need to follow-up with her primary care provider and consider colonoscopy once her pain and flaring calms down. Patient should start on a clear liquid diet for least 24 to 36 hours then advance as tolerated. Return to the ER with any concerns. Patient was stable and discharged home Diagnostic Imaging Diagonstic Imaging: CT Plain Films/CT/US/NM/MRI: abdomen, pelvis Comments Date of Exam:06/26/22 CT ABDOMEN/PELVIS W PROCEDURE: CT abdomen and pelvis with contrast. TECHNIQUE: Multiple contiguous axial images were obtained through the abdomen and pelvis after administration of intravenous contrast. Auto Exposure Controls were utilized during the CT exam to meet ALARA standards for radiation dose reduction. All CT scans use one or more of the following dose optimizing techniques: Automated exposure control, MA and/or KvP adjustment based on patient size and exam type or iterative reconstruction. INDICATION: Left lower quadrant abdominal pain and diarrhea x3 days. CORRELATION STUDY: CT abdomen and pelvis 04/27/2022. FINDINGS: LOWER THORAX: Clear. LIVER: Unremarkable. GALLBLADDER: Cholecystectomy. Common bile duct very mildly prominent at nearly 12 mm. SPLEEN: Unremarkable. PANCREAS: Unremarkable. ADRENAL GLANDS: Unremarkable. KIDNEYS: Normal configuration. No calcification or obstruction. ABDOMINAL AORTA: Unremarkable, nonaneurysmal. There are a few shotty aortocaval lymph nodes. GASTROINTESTINAL TRACT: Very small area of pericolonic inflammatory changes anterior to the descending colon. No definitive associated inflamed diverticulum. Appendix not visualized. At the mid sigmoid colon, interposed between two areas of asymmetric fecal loading is a circumferential wall thickening and narrowing. There is no abdominal ascites and/or free air. URINARY BLADDER: Decompressed. REPRODUCTIVE: 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. OSSEOUS STRUCTURES: No acute abnormality. OTHER: None. IMPRESSION: 1. Small focal area of pericolonic inflammatory change of the descending colon. Indeterminate whether this reflects focal diverticulitis, colitis, or epiploic appendagitis. 2. Asymmetric wall thickening of the sigmoid colon. Very likely phase of peristalsis/contraction. However if not recently performed, colon cancer screening assessment would be recommended. 3. Cholecystectomy, hysterectomy, and potentially appendectomy. Departure Impression Primary Impression: Diverticulitis of intestine Qualified Codes: K57.32 - Diverticulitis of large intestine without perforation or abscess without bleeding Disposition: 01 HOME, SELF-CARE Condition: Stable Departure-Patient Inst. Referrals: [facility] – [place] (PCP/Family) Primary Care Physician Patient Instructions: CLEAR LIQUID DIET ADULT/CHILD, Diverticulitis Add. Discharge Instructions: Clear liquid diet for 24 to 36 hours then advance as you can tolerate it. Please follow-up with your primary care provider once you are improved and discuss obtaining a colonoscopy. If symptoms continue to worsen please follow- up with your primary care provider or return to the ER. All discharge instructions reviewed with patient and/or family. Voiced understanding. Scripts Tramadol HCl (Tramadol HCl) 50 Mg Tablet 50 MG PO Q8H for Pain, #10 TAB Prov: GANESH STARK L DO 06/26/22 Dicyclomine HCl (Dicyclomine HCl) 20 Mg Tablet 20 MG PO TID for Pain, #20 TAB Prov: DUSTIN STARKR L DO 06/26/22 Ondansetron (Ondansetron Odt) 4 Mg Tab.rapdis 4 MG PO Q6H PRN for NAUSEA/VOMITING, #8 TAB 0 Refills Prov: DUSTIN STARKR L DO 06/26/22 Metronidazole (Metronidazole) 500 Mg Tablet 500 MG PO BID, #14 TAB 0 Refills Prov: GANESH STARK L DO 06/26/22 Ciprofloxacin HCl (Ciprofloxacin HCl) 500 Mg Tablet 500 MG PO BID, #14 TAB Prov: GANESH STARK DO 06/26/22 GANESH STARK DO Jun 26, 2022 13:17
[2022-06-26 13:26] LABS: BASOPHILS % (AUTO) 0 % (0-10); EOSINOPHILS # (AUTO) 0.2 10^3/uL (0.0-0.3); EOSINOPHILS % (AUTO) 2 % (0-10); HEMATOCRIT 35 % (35-52); HEMOGLOBIN 11.9 g/dL (11.5-16.0); LYMPHOCYTES # (AUTO) 2.3 10^3/uL (1.0-4.0); LYMPHOCYTES % (AUTO) 21 % (12-44); MEAN CORPUSCULAR HEMOGLOBIN 30 pg (25-34); MEAN CORPUSCULAR HGB CONC 34 g/dL (32-36); MEAN CORPUSCULAR VOLUME 88 fL (80-99); MONOCYTES # (AUTO) 0.5 10^3/uL (0.0-1.0); MONOCYTES % (AUTO) 5 % (0-12); NEUTROPHILS # (AUTO) 7.6 10^3/uL (1.8-7.8); NEUTROPHILS % (AUTO) 71 % (42-75); PLATELET COUNT 259 10^3/uL (130-400); WHITE BLOOD COUNT 10.6 10^3/uL (4.3-11.0)
[2022-06-26] MEDS ORDERED: morphine INJ 10 MG/ML 1ML (SYR OR VIAL) IVP ONE (13:30)
[2022-06-26] MEDS ORDERED: ONDANSETRON 4 MG/2 ML (SDV) Z0FRAN IVP ONE (13:30)
[2022-06-26 13:36] LABS: BILIRUBIN,URINE NEGATIVE (NEGATIVE); CLARITY,URINE SL CLOUDY; COLOR,URINE YELLOW; GLUCOSE, URINE (UA) NEGATIVE (NEGATIVE); KETONES,URINE NEGATIVE (NEGATIVE); LEUKOCYTE ESTERASE ,URINE NEGATIVE (NEGATIVE); NITRITE,URINE NEGATIVE (NEGATIVE); PROTEIN,URINE NEGATIVE (NEGATIVE)
[2022-06-26 13:41] LABS: POTASSIUM 4.7 MMOL/L (3.6-5.0)
[2022-06-26 13:42] LABS: CALCIUM 9.1 MG/DL (8.5-10.1)
[2022-06-26 13:43] LABS: TOTAL PROTEIN 7.9 GM/DL (6.4-8.2)
[2022-06-26 13:45] LABS: BACTERIA,URINE TRACE /HPF; RBC,URINE 0-2 /HPF
[2022-06-26 13:45] LABS: BILIRUBIN,TOTAL 0.3 MG/DL (0.1-1.0)
[2022-06-26 13:46] LABS: AMORPHOUS SEDIMENT,UR FEW AMOR URATES /LPF
[2022-06-26 13:47] LABS: CREATININE SERUM 0.84 MG/DL (0.60-1.30)
[2022-06-26] MEDS ORDERED: IOHEXOL 350 MG/ML 100 ML (OMNIPAQUE 350) VIAL IV ONE (14:00)
[2022-06-26] MEDS ORDERED: NS 100 ML (IVPB) BAG IV ONE (14:00)
[2022-06-26] MEDS ORDERED: HOLD METFORMIN - RECEIVED CONTRAST 20 ML VIAL IV SCH (14:00)
[2022-06-26] MEDS ORDERED: KETOROLAC 30 MG/ML VIAL IVP STA (14:11)
--- NOTE | 2022-06-26 15:03 | Diagnostic Imaging Report ---
PROCEDURE: CT abdomen and pelvis with contrast. TECHNIQUE: Multiple contiguous axial images were obtained through the abdomen and pelvis after administration of intravenous contrast. Auto Exposure Controls were utilized during the CT exam to meet ALARA standards for radiation dose reduction. All CT scans use one or more of the following dose optimizing techniques: Automated exposure control, MA and/or KvP adjustment based on patient size and exam type or iterative reconstruction. INDICATION: Left lower quadrant abdominal pain and diarrhea x3 days. CORRELATION STUDY: CT abdomen and pelvis 04/27/2022. FINDINGS: LOWER THORAX: Clear. LIVER: Unremarkable. GALLBLADDER: Cholecystectomy. Common bile duct very mildly prominent at nearly 12 mm. SPLEEN: Unremarkable. PANCREAS: Unremarkable. ADRENAL GLANDS: Unremarkable. KIDNEYS: Normal configuration. No calcification or obstruction. ABDOMINAL AORTA: Unremarkable, nonaneurysmal. There are a few shotty aortocaval lymph nodes. GASTROINTESTINAL TRACT: Very small area of pericolonic inflammatory changes anterior to the descending colon. No definitive associated inflamed diverticulum. Appendix not visualized. At the mid sigmoid colon, interposed between two areas of asymmetric fecal loading is a circumferential wall thickening and narrowing. There is no abdominal ascites and/or free air. URINARY BLADDER: Decompressed. REPRODUCTIVE: 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. OSSEOUS STRUCTURES: No acute abnormality. OTHER: None. IMPRESSION: 1. Small focal area of pericolonic inflammatory change of the descending colon. Indeterminate whether this reflects focal diverticulitis, colitis, or epiploic appendagitis. 2. Asymmetric wall thickening of the sigmoid colon. Very likely phase of peristalsis/contraction. However if not recently performed, colon cancer screening assessment would be recommended. 3. Cholecystectomy, hysterectomy, and potentially appendectomy. Dictated by: Dictated on workstation # [id number]
[2022-06-26] MEDS ORDERED: METR-145 PO (15:26)
[2022-06-26] MEDS ORDERED: CIPR500T5 PO (15:26)
[2022-06-26] MEDS ORDERED: DICY20TA PO (15:26)
[2022-06-26] MEDS ORDERED: ONDA4TAB11 PO (15:26)
[2022-06-26] MEDS ORDERED: TRAM50TA3 PO (15:26)
[2022-06-26 15:30] VITALS: BP 105/71
== END 2022-06-26 15:31 | disposition home or self-care (01) ==
LOC: EDUNIT# 13:05 → ER 13:07
DX: K57.32 Diverticulitis of large intestine without perforation or abscess without bleeding (principal); G47.30 Sleep apnea, unspecified; Z90.49 Acquired absence of other specified parts of digestive tract; Z88.0 Allergy status to penicillin; Z99.89 Dependence on other enabling machines and devices
CPT/HCPCS: 36415; 74177; 80053; 81000; 85025; 86141

== ENCOUNTER → 2022-07-27 | Outpatient (CLI) | payer MEDICAID ==
[~2022-07-27] MED LIST changes: +CIPR500T5 PO; +METR-145 PO; +TRAM50TA3 PO
== END ==
LOC: RT 10:45
PROVIDERS: ATTEND Nurse Practitioner Family
DX: J45.20 Mild intermittent asthma, uncomplicated (principal)
CPT/HCPCS: 94060; 94726; 94729

== ENCOUNTER 2022-08-10 15:45 | Observation (INO) | payer MEDICARE, MEDICAID ==
[~2022-08-10] VITALS: Ht 157.5 cm; Wt 101.7 kg
[2022-08-10] MEDS ORDERED: RT-ALBUTEROL HFA 8.5 GM INHALER IH STA (16:14)
[2022-08-10] MEDS ORDERED: ONDANSETRON 4 MG/2 ML (SDV) Z0FRAN IVP ONE (16:15)
[2022-08-10 16:25] LABS: BILIRUBIN,URINE NEGATIVE (NEGATIVE); CLARITY,URINE CLEAR; COLOR,URINE YELLOW; GLUCOSE, URINE (UA) NEGATIVE (NEGATIVE); KETONES,URINE NEGATIVE (NEGATIVE); LEUKOCYTE ESTERASE ,URINE TRACE (NEGATIVE); NITRITE,URINE NEGATIVE (NEGATIVE); PROTEIN,URINE NEGATIVE (NEGATIVE)
[2022-08-10 16:25] LABS: BASOPHILS % (AUTO) 0 % (0-10); EOSINOPHILS # (AUTO) 0.3 10^3/uL (0.0-0.3); EOSINOPHILS % (AUTO) 3 % (0-10); HEMATOCRIT 37 % (35-52); HEMOGLOBIN 12.3 g/dL (11.5-16.0); LYMPHOCYTES # (AUTO) 2.7 10^3/uL (1.0-4.0); LYMPHOCYTES % (AUTO) 24 % (12-44); MEAN CORPUSCULAR HEMOGLOBIN 29 pg (25-34); MEAN CORPUSCULAR HGB CONC 33 g/dL (32-36); MEAN CORPUSCULAR VOLUME 89 fL (80-99); MEAN PLATELET VOLUME 8.4 fL (9.0-12.2); MONOCYTES # (AUTO) 0.6 10^3/uL (0.0-1.0); MONOCYTES % (AUTO) 5 % (0-12); NEUTROPHILS # (AUTO) 7.5 10^3/uL (1.8-7.8); NEUTROPHILS % (AUTO) 67 % (42-75); PLATELET COUNT 281 10^3/uL (130-400); WHITE BLOOD COUNT 11.2 10^3/uL (4.3-11.0)
[2022-08-10 16:28] LABS: ALBUMIN 4.2 GM/DL (3.2-4.5); CHLORIDE 108 MMOL/L (98-107)
[2022-08-10 16:29] LABS: POTASSIUM 4.6 MMOL/L (3.6-5.0); SODIUM 143 MMOL/L (135-145)
[2022-08-10 16:30] LABS: CALCIUM 9.3 MG/DL (8.5-10.1); PROTHROMBIN TIME PATIENT 13.7 SEC (12.2-14.7)
[2022-08-10 16:31] LABS: GLUCOSE 123 MG/DL (70-105); TOTAL PROTEIN 7.8 GM/DL (6.4-8.2)
[2022-08-10 16:32] LABS: CARBON DIOXIDE 26 MMOL/L (21-32)
[2022-08-10 16:34] LABS: BACTERIA,URINE NEGATIVE /HPF; SQUAMOUS EPITHELIAL CELL,UR 0-2 /HPF
[2022-08-10 16:34] LABS: ALKALINE PHOSPHATASE 55 U/L (40-136); CREATININE SERUM 0.96 MG/DL (0.60-1.30); GFR ESTIMATED 68
[2022-08-10 16:35] LABS: BUN/CREATININE RATIO 27
[2022-08-10 16:37] LABS: ALANINE AMINOTRANSFERASE 17 U/L (0-55); MAGNESIUM 2.2 MG/DL (1.6-2.4)
--- NOTE | 2022-08-10 16:39 | Diagnostic Imaging Report ---
INDICATION: Chest pain. EXAMINATION: Portable chest, 4:32 p.m. FINDINGS: Heart size and pulmonary vascularity are normal. Lungs are clear. There are no effusions or pneumothoraces. IMPRESSION: No acute abnormalities in the chest. Dictated by: Dictated on workstation # [id number]
[2022-08-10 16:58] LABS: BILIRUBIN,TOTAL < 0.5 MG/DL (0.1-1.0)
--- NOTE | 2022-08-10 17:24 | ED General ---
General Chief Complaint: Dizziness/Syncope Stated Complaint: DIZZYNESS Nursing Triage Note: PT BROUGHT IN BY EMS FROM [facility] FOR C/O DIZZINESS AND CHEST PAIN X 3 DAYS. PT REPORTS INTERMITTENT LEFT SIDED CP, SOB WITH CP. N/V BEGINNING TODAY, REPORTS 3 EPISODES OF VOMITING. Source of Information: Patient Exam Limitations: No Limitations (CONSTANTINE ABAD MD) History of Present Illness Date Seen by Provider: Aug 10, 2022 Time Seen by Provider: 16:03 Initial Comments This 61-year-old woman presents to the emergency room with complaints of chest pain and dizziness for the past 3 days. She was sent here by the clinic. She stated intermittent chest pain to nursing staff on triage but she reports consistent constant chest pain to me during my interview. Pain is in the left upper chest and is very tender to palpation. She states it feels like someone is "sitting on it.". She woke this morning at 0500 with the symptoms. She has had associated vomiting x2. The dizziness is described as being both lightheaded and a spinning sensation as an vertigo. It is constant and does not fatigue. It is not worsened by head movements or changes in position. She does not recall ever having any dizziness like this in the past. As time passes she also complains of headache and light sensitivity. She has wheezing and shortness of breath. She denies any fever. She additionally complains of some dysuria. (CONSTANTINE ABAD MD) Allergies and Home Medications Allergies Coded Allergies: Penicillins (Verified Allergy, Unknown, 08/20/15) tuberculin, purified protein deriva (Verified Adverse Reaction, Mild, 08/20/15) Patient Home Medication List Home Medication List Reviewed: Yes (CONSTANTINE ABAD MD) Home Medication List Reviewed: Yes (NOEL RODRIGUEZ MD) Albuterol Sulfate (Ventolin Hfa) 8.5 Gm Hfa.aer.ad, 2 PUFF INH Q6H PRN for SHORTNESS OF BREATH, (Reported) Entered as Reported by: MARTHA IVAN on 08/20/15 1428 Amlodipine Besylate (Amlodipine Besylate) 5 Mg Tablet, 5 MG PO DAILY Prescribed by: MANI THORNTON on 10/16/21 1146 Aripiprazole (Aripiprazole) 5 Mg Tablet, 5 MG PO DAILY, (Reported) Entered as Reported by: CAL MARTINEZ on 08/13/21 09 Aspirin/Acetaminophen/Caffeine (Pain Reliever Plus Tablet) 250 Mg-250 Mg-65 Mg Tablet, 2 EA PO Q6- 8H PRN for HEADACHE, (Reported) Entered as Reported by: CAL MARTINEZ on 10/09/21 1502 Cetirizine HCl (Cetirizine HCl) 10 Mg Tablet, 10 MG PO DAILY, (Reported) Entered as Reported by: MARTHA IVAN on 08/20/15 1428 Ciprofloxacin HCl (Ciprofloxacin HCl) 500 Mg Tablet, 500 MG PO BID Prescribed by: GANESH STARK on 06/26/22 1526 Clonidine HCl (Clonidine HCl) 0.1 Mg Tablet, 0.1 MG PO Q4HR PRN for SBP>170 Prescribed by: MANI THORNTON on 10/16/21 1146 Dicyclomine HCl (Dicyclomine HCl) 20 Mg Tablet, 20 MG PO ACHS, (Reported) Entered as Reported by: CAL MARTINEZ on 08/13/21956 Dicyclomine HCl (Dicyclomine HCl) 20 Mg Tablet, 20 MG PO TID Prescribed by: GANESH STARK on 06/26/22 1526 Lisinopril (Lisinopril) 40 Mg Tablet, 40 MG PO DAILY, (Reported) Entered as Reported by: CAL MARTINEZ on 10/09/21 150 Lovastatin (Lovastatin) 40 Mg Tablet, 40 MG PO DAILY, (Reported) Entered as Reported by: MARTHA IVAN on 01/25/18 0927 Metronidazole (Metronidazole) 500 Mg Tablet, 500 MG PO BID Prescribed by: GANESH STARK on 06/26/22 152 Montelukast Sodium (Montelukast Sodium) 10 Mg Tablet, 10 MG PO DAILY, (Reported) Entered as Reported by: CAL MARTINEZ on 08/13/21956 Ondansetron (Ondansetron Odt) 4 Mg Tab.rapdis, 4 MG PO Q6H PRN for NAUSEA/VOMITI NG Prescribed by: GANESH STARK on 06/26/22 1526 Pantoprazole Sodium (Pantoprazole Sodium) 40 Mg Tablet.dr, 40 MG PO DAILY, (Reported) Entered as Reported by: CAL MARTINEZ on 08/13/21 09 Polyethylene Glycol 3350 (Polyethylene Glycol 3350) 17 Gram Powd.pack, 17 GM PO TID Prescribed by: MANI THORNTON on 10/16/21 1146 Promethazine HCl (Promethazine Tablet) 25 Mg Tablet, 25 MG PO Q4H PRN for NAUSEA/VOMITING-2ND LINE Prescribed by: MANI THORNTON on 10/16/21 1146 Propranolol HCl (Propranolol HCl) 40 Mg Tablet, 40 MG PO 0800,1600, (Reported) Entered as Reported by: MARTHA IVAN on 01/25/18926 Sertraline HCl (Sertraline HCl) 100 Mg Tablet, 100 MG PO DAILY, (Reported) Entered as Reported by: HUSSEIN GONZALES on 08/12/21 1800 Sucralfate (Sucralfate) 1 Gram Tablet, 1 GM PO ACHS Prescribed by: MANI THORNTON on 10/16/21 114 Tramadol HCl (Tramadol HCl) 50 Mg Tablet, 50 MG PO Q8H Prescribed by: GANESH STARK on 06/26/22 1526 Trazodone HCl (Trazodone HCl) 100 Mg Tablet, 200 MG PO HS, (Reported) Entered as Reported by: MARTHA IVAN on 01/25/18926 Review of Systems Review of Systems Constitutional: no symptoms reported EENTM: see HPI Respiratory: see HPI Cardiovascular: see HPI Gastrointestinal: see HPI Genitourinary: see HPI : No Musculoskeletal: no symptoms reported Skin: no symptoms reported Psychiatric/Neurological: See HPI Hematologic/Lymphatic: No Symptoms Reported Immunological/Allergic: no symptoms reported (CONSTANTINE ABAD MD) Past Cktelak-Codpek-Boikta Hx Patient Social History Tobacco Use?: No Use of E-Cig and/or Vaping dev: No Substance use?: No Alcohol Use?: No Pt feels they are or have been: No (CONSTANTINE ABAD MD) Immunizations Up To Date Tetanus Booster (TDap): Unknown PED Vaccines UTD: Yes Influenza Vaccine Up-to-Date: No; Not Current First/Initial COVID19 Vaccinat: 07/2021 Second COVID19 Vaccination James: 07/3021 Third COVID19 Vaccination Date: 07/2021 (CONSTANTINE ABAD MD) Seasonal Allergies Seasonal Allergies: No (CONSTANTINE ABAD MD) Past Medical History Surgery/Hospitalization HX: APPY,KENNEDY, , HYSTERECTOMY, OOPHERECTOMY, TB, DM2, ASTHMA, COPD, HTN, HIGH CHOLESTEROL, CAMACHO, SYNCOPE, KEVIN, GERD, DIVERTICULITIS, CHRONIC BACK PAIN, ANXIETY, DEPRESSION. 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 Sexually Transmitted Disease: No HIV/AIDS: No Genitourinary: Yes UTI-Chronic Gastrointestinal: Yes Gastroesophageal Reflux, Obstructive Bowel, Diverticulosis, Ulcer Musculoskeletal: Yes Chronic Back Pain Endocrine: No Diabetes, Non-Insulin dep HEENT: Yes Tinnitis Loss of Vision: Denies Hearing Impairment: Denies Cancer: No Psychosocial: Yes Anxiety, Suicide Attempts, Depression Integumentary: Yes (intertrigo) Blood Disorders: No Adverse Reaction/Blood Tranf: No (CONSTANTINE ABAD MD) Family Medical History Congenital heart disease G8 SISTER (HOLE IN HEART ) Neoplasm 19 MOTHER (STOMACH ) G8 BROTHER (STOMACH) No Pertinent Family Hx (CONSTANTINE ABAD MD) Physical Exam Vital Signs Vital Signs - First Documented 08/10/22 15:48 Temp 37.4 Pulse 89 Resp 22 B/P (MAP) 147/126 (133) Pulse Ox 94 O2 Delivery Room Air (NOEL RODRIGUEZ MD) Vital Signs Capillary Refill : Less Than 3 Seconds (CONSTANTINE ABAD MD) Height, Weight, BMI Height: 5'2.00" Weight: 168lbs. 0oz. [id number]; 33.00 BMI Method:Stated General Appearance: WD/WN, Moderate Distress HEENT: PERRL/EOMI, TMs Normal, Normal ENT Inspection, Pharynx Normal, Other (Light sensitivity) Neck: Normal Inspection Respiratory: Normal Breath Sounds, No Accessory Muscle Use, No Respiratory Distress; No Crackles; Wheezing, Other (Left upper anterior chest wall tender to palpation even with light pressure) Cardiovascular: Regular Rate, Rhythm, No Edema, No Murmur Gastrointestinal: Normal Bowel Sounds, Non Tender, Soft Extremity: Normal Inspection, Non Tender, No Pedal Edema Neurologic/Psychiatric: Alert, Oriented x3, Normal 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, 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 Norm as Tested, Motor Weakness (Generalized weakness without focal deficit) Skin: Normal Color, Warm/Dry (CONSTANTINE ABAD MD) Progress/Results/Core Measures Suspected Sepsis SIRS Temperature: Pulse: 89 Respiratory Rate: 22 Laboratory Tests 08/10/22 15:56: White Blood Count 11.2H Blood Pressure 147 /126 Mean: 133 Laboratory Tests 08/10/22 15:56: Creatinine 0.96, INR Comment 1.0, Platelet Count 281, Total Bilirubin < 0.5 (CONSTANTINE ABAD MD) Results/Orders Lab Results Laboratory Tests Test 08/10/22 15:52 08/10/22 15:56 08/10/22 16:08 Range/Units Glucometer 123 H 70-110 MG/DL White Blood Count 11.2 H 4.3-11.0 10^3/uL Red Blood Count 4.19 3.80-5.11 10^6/uL Hemoglobin 12.3 11.5-16.0 g/dL Hematocrit 37 35-52 % Mean Corpuscular Volume 89 80-99 fL Mean Corpuscular Hemoglobin 29 25-34 pg Mean Corpuscular Hemoglobin Concent 33 32-36 g/dL Red Cell Distribution Width 13.8 10.0-14.5 % Platelet Count 281 130-400 10^3/uL Mean Platelet Volume 8.4 L 9.0-12.2 fL Immature Granulocyte % (Auto) 0 % Neutrophils (%) (Auto) 67 42-75 % Lymphocytes (%) (Auto) 24 12-44 % Monocytes (%) (Auto) 5 0-12 % Eosinophils (%) (Auto) 3 0-10 % Basophils (%) (Auto) 0 0-10 % Neutrophils # (Auto) 7.5 1.8-7.8 10^3/uL Lymphocytes # (Auto) 2.7 1.0-4.0 10^3/uL Monocytes # (Auto) 0.6 0.0-1.0 10^3/uL Eosinophils # (Auto) 0.3 0.0-0.3 10^3/uL Basophils # (Auto) 0.0 0.0-0.1 10^3/uL Immature Granulocyte # (Auto) 0.0 0.0-0.1 10^3/uL Prothrombin Time 13.7 12.2-14.7 SEC INR Comment 1.0 0.8-1.4 Activated Partial Thromboplast Time 28 24-35 SEC Sodium Level 143 135-145 MMOL/L Potassium Level 4.6 3.6-5.0 MMOL/L Chloride Level 108 H 98-107 MMOL/L Carbon Dioxide Level 26 21-32 MMOL/L Anion Gap 9 5-14 MMOL/L Blood Urea Nitrogen 26 H 7-18 MG/DL Creatinine 0.96 0.60-1.30 MG/DL Estimat Glomerular Filtration Rate 68 BUN/Creatinine Ratio 27 Glucose Level 123 H 70-105 MG/DL Calcium Level 9.3 8.5-10.1 MG/DL Corrected Calcium 9.1 8.5-10.1 MG/DL Magnesium Level 2.2 1.6-2.4 MG/DL Total Bilirubin < 0.5 0.1-1.0 MG/DL Aspartate Amino Transf (AST/SGOT) 13 5-34 U/L Alanine Aminotransferase (ALT/SGPT) 17 0-55 U/L Alkaline Phosphatase 55 40-136 U/L Myoglobin 20.3 10.0-92.0 NG/ML Troponin I < 0.028 <0.028 NG/ML Total Protein 7.8 6.4-8.2 GM/DL Albumin 4.2 3.2-4.5 GM/DL Influenza Type A (RT-PCR) Not Detected Not Detecte Influenza Type B (RT-PCR) Not Detected Not Detecte SARS-CoV-2 RNA (RT-PCR) Not Detected Not Detecte Urine Color YELLOW Urine Clarity CLEAR Urine pH 6.0 5-9 Urine Specific [place] 1.025 H 1.016-1.022 Urine Protein NEGATIVE NEGATIVE Urine Glucose (UA) NEGATIVE NEGATIVE Urine Ketones NEGATIVE NEGATIVE Urine Nitrite NEGATIVE NEGATIVE Urine Bilirubin NEGATIVE NEGATIVE Urine Urobilinogen 0.2 < = 1.0 MG/DL Urine Leukocyte Esterase TRACE H NEGATIVE Urine RBC (Auto) TRACE-I H NEGATIVE Urine RBC NONE /HPF Urine WBC NONE /HPF Urine Squamous Epithelial Cells 0-2 /HPF Urine Crystals NONE /LPF Urine Bacteria NEGATIVE /HPF Urine Casts NONE /LPF Urine Mucus NEGATIVE /LPF Urine Culture Indicated NO (NOEL RODRIGUEZ MD) Medications Given in ED Current Medications Medications Dose Ordered Sig/Anabel Route Start Time Stop Time Status Last Admin Dose Admin Dexamethasone Sodium Phosphate 4 mg ONCE ONCE IV 08/10/22 19:30 08/10/22 19:31 DC 08/10/22 19:53 4 MG Diazepam 2 mg ONCE ONCE PO 08/10/22 18:45 08/10/22 18:46 DC 08/10/22 19:20 2 MG Diphenhydramine HCl 25 mg ONCE ONCE IVP 08/10/22 19:30 08/10/22 19:31 DC 08/10/22 19:54 25 MG Fentanyl Citrate 50 mcg ONCE ONCE IVP 08/10/22 17:45 08/10/22 17:46 DC 08/10/22 17:44 50 MCG Iohexol 100 ml ONCE ONCE IV 08/10/22 18:00 08/10/22 18:01 DC 08/10/22 18:07 80 ML Ketorolac Tromethamine 30 mg ONCE ONCE IVP 08/10/22 18:45 08/10/22 18:46 DC 08/10/22 19:20 30 MG Lactated Ringer's 1,000 ml @ 0 mls/hr Q0M ONCE IV 08/10/22 17:45 08/10/22 17:46 DC 08/10/22 17:43 0 MLS/HR Magnesium Sulfate/ Dextrose 100 ml @ 100 mls/hr ONCE ONCE IV 08/10/22 19:30 08/10/22 20:29 DC 08/10/22 19:53 100 MLS/HR Ondansetron HCl 8 mg ONCE ONCE IVP 08/10/22 16:15 08/10/22 16:16 DC 08/10/22 16:33 8 MG Promethazine HCl 25 mg ONCE ONCE IVP 08/10/22 17:45 08/10/22 17:46 DC 08/10/22 17:44 25 MG Sodium Chloride 100 ml ONCE ONCE IV 08/10/22 18:00 08/10/22 18:01 DC 08/10/22 18:07 80 ML (NOEL RODRIGUEZ MD) Vital Signs/I&O 08/10/22 15:48 Temp 37.4 Pulse 89 Resp 22 B/P (MAP) 147/126 (133) Pulse Ox 94 O2 Delivery Room Air (NOEL RODRIGUEZ MD) Vital Signs/I&O Capillary Refill : Less Than 3 Seconds (CONSTANTINE ABAD MD) Blood Pressure Mean: 133 Progress Note #1: Time: 17:41 Progress Note Patient was interviewed and examined. Work-up is grossly unremarkable. Wheezing and shortness of breath improved with albuterol. Nausea improved with Zofran but is still present. She complains of unchanged dizziness. Headache seems to be worse and chest pain is still present. She is additionally being treated with IV fluids, Phenergan, and fentanyl. CT angiogram of the head and neck is being obtained as she has concerning headache with nonfatiguing vertigo. Progress Note #2: Time: 19:04 Progress Note Albuterol seemed to have corrected the wheezing and shortness of breath as patient is still breathing relatively well. She complains of persistent headache and dizziness. CT angiogram of the head revealed no pathology. This was discussed with the radiologist. Toradol and Valium have been administered for further symptom management. At this point, patient does not seem like she will be very tolerant of management at home. I have discussed admission with Dr. Sauceda. She would appreciate a neurology consultation before committing to admission. I have placed a call to [facility] and am awaiting a callback. Progress Note #3: Time: 19:32 Progress Note I consulted with Dr. Cramer, neurologist at [facility]. He recommended finishing out a migraine cocktail by adding magnesium sulfate 1 g IV, dexamethasone 4 mg IV, Benadryl 25 mg IV. He agreed admission for a patient of this age with these risk factors was appropriate with MRI in the morning if symptoms do not improve. He favors vertiginous status migrainous syndrome and less likely a stroke sy ndrome or other intracranial lesion. He recommended adding Depakote 500 mg IV in the morning if there is no significant improvement. I discussed the situation with Dr. Sauceda who is agreeable to admission. Bridging orders have been written. Plan is to admit unless she resolves her symptoms after the completion of migraine cocktail. (CONSTANTINE ABAD MD) Progress Note #1: Time: 19:35 Progress Note Patient care assumed from Dr Abad at this time Progress Note #2: Time: 20:45 Progress Note No improvement, will proceed with admission. (NOEL RODRIGUEZ MD) ECG Initial ECG Impression Date: Aug 10, 2022 Initial ECG Impression Time: 16:06 Initial ECG Rate: 89 Initial ECG Rhythm: Normal Sinus Initial ECG Intervals: OK Initial ECG Impression: Normal Comment Normal sinus rhythm with slightly prolonged OK interval of [address] elevation or depression. No axis deviation. (CONSTANTINE ABAD MD) Diagnostic Imaging Diagonstic Imaging: Xray Plain Films/CT/US/NM/MRI: chest Comments NAME: [facility] REC#: [id number] PT STATUS: REG ER : 1960 PHYSICIAN: CONSTANTINE ABAD MD ADMIT DATE: 08/10/22/ER Signed Date of Exam:08/10/22 CHEST 1 VIEW, AP/PA ONLY INDICATION: Chest pain. EXAMINATION: Portable chest, 4:32 p.m. FINDINGS: Heart size and pulmonary vascularity are normal. Lungs are clear. There are no effusions or pneumothoraces. IMPRESSION: No acute abnormalities in the chest. Dictated by: Dictated on workstation # [id number] Dict: 08/10/22 1635 Trans: 08/10/221711 [id number] Interpreted by: MARY WAYNE MD Electronically signed by: MARY WAYNE MD 08/10/221711 Diagonstic Imaging: CT Plain Films/CT/US/NM/MRI: other (Angiogram head and neck) Comments NAME: [facility] REC#: [id number] PT STATUS: REG ER : 1960 PHYSICIAN: CONSTANTINE ABAD MD ADMIT DATE: 08/10/22/ER Draft Date of Exam:08/10/22 CT ANGIO HEAD/NECK CLINICAL INDICATION: Patient with dizziness and chest pain x3 days. EXAMS: 1: Head CT with and without IV contrast. Auto Exposure Controls were utilized during the CT exam to meet ALARA standards for radiation dose reduction. 2: CT angiogram of the head and neck performed with 100 cc of Omnipaque 350 IV contrast. Sagittal and coronal MIP reformations were created for better visualization of vascular anatomy. CT angiogram was post-processed using RAPID LVO detection to include quantitative measurements of cerebral blood flow and automated results notification to the stroke and/or neurointerventional team. COMPARISON: CT angiogram of head/neck dated 08/20/2015. FINDINGS: Head CT: There is no evidence of acute cerebral infarct, intracranial hemorrhage, or gross mass effect. There is no abnormal IV contrast enhancement. The brain parenchymal volume appears appropriate for patient's age. There is normal westbrook-white matter distinction. There is no significant midline shift or herniation. There is no evidence of hydrocephalus. The basal cisterns are unremarkable. The skull, extracranial soft tissue, and orbits are unremarkable. The paranasal sinuses are unremarkable. Temporal bones show no significant abnormality. CT Angiogram: There is dense contrast bolus seen within the left subclavian vein, innominate vein and superior vena cava which causes streak artifact obscuring portions of the aortic arch and proximal great vessels. Three-vessel aortic arch is seen. The distal left subclavian artery is obscured by dense contrast streak artifact limiting evaluation. Otherwise, visualized portion of the left subclavian artery is patent. The brachiocephalic artery and right subclavian artery are patent. There is stairstep motion artifact obscuring part of the mid right common carotid artery. Otherwise, right common carotid artery is patent as visualized. The left common carotid artery is patent. The bilateral ECA and bilateral cervical ICA are patent. The petrous, cavernous, and supraclinoid ICA are patent. The bilateral ACAs and distal branches are patent. The bilateral MCAs and distal branches are patent. The bilateral cervical vertebral arteries, intradural vertebral arteries, basilar artery, bilateral superior cerebellar arteries, and bilateral field secretary and distal branches are patent. The right PICA is patent. There is stable appearance of the left PICA. The dural venous sinuses are patent. The neck soft tissue structures show no significant abnormality. Visualized upper lung guerrero are clear. There are cervical spine vertebral body spurs. IMPRESSION: 1: There is no CT evidence of acute intracranial process. There is no abnormal IV contrast enhancement. 2: CT angiogram of the head and neck shows no large vessel occlusion, significant stenosis, vascular malformation, or aneurysm. Results of this report were discussed with Dr. Constantine Abad via the telephone on 08/10/2022 at 1832 hours. Dictated on workstation # [id number] Dict: 08/10/221821 Trans: 08/10/221838 AS6 [id number] Interpreted by: YARY LICEA MD (CONSTANTINE ABAD MD) Departure Communication (Admissions) Time/Spoke to Admitting Phy: 17:20 Dr. Sauceda (CONSTANTINE ABAD MD) Impression Primary Impression: Vertigo Additional Impressions: Acute headache Chest wall pain COPD exacerbation Nausea & vomiting Qualified Codes: R11.2 - Nausea with vomiting, unspecified Disposition: ADMITTED INPATIENT Condition: Improved Admissions Decision to Admit Reason: Admit from ER (General) Decision to Admit/Date: Aug 10, 2022 Time/Decision to Admit Time: 17:20 (CONSTANTINE ABAD MD) Departure-Patient Inst. Referrals: [facility] (PCP/Family) Primary Care Physician CONSTANTINE ABAD MD Aug 10, 2022 17:24 NOEL RODRIGUEZ MD Aug 10, 2022 19:36
[2022-08-10] MEDS ORDERED: PROMETHAZINE INJ 25 MG/ML (PHENERGAN) AMP IVP ONE (17:45)
[2022-08-10] MEDS ORDERED: LACTATED RINGERS 1,000 ML IV ONE ×2 (17:45→22:28)
[2022-08-10] MEDS ORDERED: fentaNYL INJ 100 MCG/2 ML AMP IVP ONE (17:45)
[2022-08-10] MEDS ORDERED: NS 100 ML (IVPB) BAG IV ONE (18:00)
[2022-08-10] MEDS ORDERED: IOHEXOL 350 MG/ML 100 ML (OMNIPAQUE 350) VIAL IV ONE (18:00)
[2022-08-10] MEDS ORDERED: HOLD METFORMIN - RECEIVED CONTRAST 20 ML VIAL IV SCH (18:00)
--- NOTE | 2022-08-10 18:40 | Diagnostic Imaging Report ---
CLINICAL INDICATION: Patient with dizziness and chest pain x3 days. EXAMS: 1: Head CT with and without IV contrast. Auto Exposure Controls were utilized during the CT exam to meet ALARA standards for radiation dose reduction. 2: CT angiogram of the head and neck performed with 100 cc of Omnipaque 350 IV contrast. Sagittal and coronal MIP reformations were created for better visualization of vascular anatomy. CT angiogram was post-processed using RAPID LVO detection to include quantitative measurements of cerebral blood flow and automated results notification to the stroke and/or neurointerventional team. COMPARISON: CT angiogram of head/neck dated 08/20/2015. FINDINGS: Head CT: There is no evidence of acute cerebral infarct, intracranial hemorrhage, or gross mass effect. There is no abnormal IV contrast enhancement. The brain parenchymal volume appears appropriate for patient's age. There is normal westbrook-white matter distinction. There is no significant midline shift or herniation. There is no evidence of hydrocephalus. The basal cisterns are unremarkable. The skull, extracranial soft tissue, and orbits are unremarkable. The paranasal sinuses are unremarkable. Temporal bones show no significant abnormality. CT Angiogram: There is dense contrast bolus seen within the left subclavian vein, innominate vein and superior vena cava which causes streak artifact obscuring portions of the aortic arch and proximal great vessels. Three-vessel aortic arch is seen. The distal left subclavian artery is obscured by dense contrast streak artifact limiting evaluation. Otherwise, visualized portion of the left subclavian artery is patent. The brachiocephalic artery and right subclavian artery are patent. There is stairstep motion artifact obscuring part of the mid right common carotid artery. Otherwise, right common carotid artery is patent as visualized. The left common carotid artery is patent. The bilateral ECA and bilateral cervical ICA are patent. The petrous, cavernous, and supraclinoid ICA are patent. The bilateral ACAs and distal branches are patent. The bilateral MCAs and distal branches are patent. The bilateral cervical vertebral arteries, intradural vertebral arteries, basilar artery, bilateral superior cerebellar arteries, and bilateral insurance producer and distal branches are patent. The right PICA is patent. There is stable appearance of the left PICA. The dural venous sinuses are patent. The neck soft tissue structures show no significant abnormality. Visualized upper lung guerrero are clear. There are cervical spine vertebral body spurs. IMPRESSION: 1: There is no CT evidence of acute intracranial process. There is no abnormal IV contrast enhancement. 2: CT angiogram of the head and neck shows no large vessel occlusion, significant stenosis, vascular malformation, or aneurysm. Results of this report were discussed with Dr. Constantine Abad via the telephone on 08/10/2022 at 1832 hours. Dictated by: Dictated on workstation # [id number]
[2022-08-10] MEDS ORDERED: MECLIZINE 25 MG (ANTIVERT) TAB PO ONE (18:45)
[2022-08-10] MEDS ORDERED: KETOROLAC 30 MG/ML VIAL IVP ONE (18:45)
[2022-08-10] MEDS ORDERED: MAGNESIUM 1 GM/100 ML IVPB 100 ML IV ONE (19:30)
[2022-08-10] MEDS ORDERED: diphenhydrAMINE 50 MG/ML INJ (BENADRYL) IVP ONE (19:30)
[2022-08-10 22:20] VITALS: BP 165/86
[2022-08-10] MEDS ORDERED: ONDANSETRON 4 MG/2 ML (SDV) Z0FRAN IV PRN (22:30)
[2022-08-10] MEDS ORDERED: PROMETHAZINE INJ 25 MG/ML (PHENERGAN) AMP IVP PRN (22:45)
[2022-08-10 22:47] VITALS: BP 165/86
[2022-08-10] MEDS ORDERED: RT-ALBUTEROL SULF 2.5 MG/3 ML PRE-MIX VIAL INH PRN (23:00)
[2022-08-10] MEDS: LACTATED RINGERS 1,000 ML IV SCH (23:02)
[2022-08-11] VITALS (7 sets, daily range): BP systolic 114–145; BP diastolic 59–83
[2022-08-11] MEDS: KETOROLAC 30 MG/ML VIAL IV PRN ×3 (00:49→20:54)
[2022-08-11] MEDS: LACTATED RINGERS 1,000 ML IV SCH ×2 (03:53→16:13)
[2022-08-11] MEDS: fentaNYL INJ 100 MCG/2 ML AMP IV PRN ×6 (03:54→23:26)
[2022-08-11 06:37] LABS: TRIGLYCERIDES 64 MG/DL (<150); VLDL CHOLESTEROL 13 MG/DL (5-40)
[2022-08-11 06:42] LABS: CHOLESTEROL 168 MG/DL (< 200)
[2022-08-11 06:43] LABS: HDL CHOLESTEROL 51 MG/DL (40-60)
[2022-08-11] MEDS ORDERED: DIVALPROEX 250 MG DELAYED RELEASE (DEPAKOTE) TAB PO NR (11:30)
--- NOTE | 2022-08-11 12:59 | Diagnostic Imaging Report ---
PROCEDURE: MR imaging of the brain without contrast. TECHNIQUE: Multiplanar, multisequence MR imaging of the brain was performed without contrast. INDICATION: Vertigo. Dizziness. COMPARISON: CTA head and neck 08/10/2022. FINDINGS: Examination mildly limited by motion. No abnormal intracranial signal. No restricted water diffusion. No hemosiderin deposition or evidence of intracranial hemorrhage. Normal morphology of the major midline structures, sella, posterior fossa and cerebellar pontine angle. Normal intracranial flow voids. No hydrocephalus or extra-axial fluid collections. The orbits are negative. Paranasal sinuses and mastoids are clear. Normal bone marrow signal. IMPRESSION: Normal MRI of the brain without contrast allowing for motion artifact. No evidence of acute infarction or hemorrhage. Dictated by: Dictated on workstation # [id number]
[2022-08-11] MEDS ORDERED: FLUT16SP22 NSEACH (15:55)
[2022-08-11] MEDS ORDERED: PROP80CA4 PO (15:55)
[2022-08-11] MEDS ORDERED: TIOT4MIS2 INH (15:55)
[2022-08-11] MEDS ORDERED: FLUT1BLS13 INH (15:55)
[2022-08-11] MEDS ORDERED: IPRA3AMP31 NEB (15:55)
[2022-08-11] MEDS ORDERED: AMLO-251 PO (15:55)
--- NOTE | 2022-08-11 17:24 | History & Physical ---
HPI History of Present Illness: 61 yo F that presented with vertigo of 3 days duration. States that she feels the room spinning. Nothing she has done has improved symptoms and nothing has made it worse. She has a h/o migraines and currently has a CAMACHO but states that it feels different then her normal migraines. States that she did have a fall several days ago because of the spinning. She has not been started on any new medications and has not missing any doses of her current medications. She does not have any other associated symptoms like weakness or numbness in her extremities. She has never had his previously. Source: patient Exam Limitations: no limitations Date seen by provider: Aug 11, 2022 Time Seen by Provider: 10:15 Attending Physician [place] PCP Admitting Physician: Brionna Sauceda MD Attending Physician: Brionna Sauceda MD Consult Date of Admission Aug 10, 2022 at 22:18 Home Medications Home Medications Reviewed patient Home Medication Reconciliation performed by pharmacy medication reconciliations industrial service technician and/or nursing. Patients Allergies have been reviewed. Allergies Coded Allergies: Penicillins (Verified Allergy, Unknown, 08/20/15) tuberculin, purified protein deriva (Verified Adverse Reaction, Mild, 08/20/15) [id number]-[id number] Hx Patient Social History Smoking Status: Never a Smoker 2nd Hand Smoke Exposure: Yes (reports COPD from 2nd hand smoke) Recent Hopitalizations: No Alcohol Use?: No Have you traveled recently?: No Immunizations Up To Date Tetanus Booster (TDap): Unknown Influenza Vaccine Up-to-Date: No; Not Current First/Initial COVID19 Vaccinat: 07/2021 Second COVID19 Vaccination James: 07/3021 Third COVID19 Vaccination Date: 07/2021 Past Medical History PMHx: 08/13/21- Pt states only COPD- chart shows: HTN Hypothyroidism Schizoaffective D/o Asthma Irritable bowel syndrome Insomnia Psychosis HLD Depression Chronic gastritis Neuropathy Seizures PSurgHx: Per pt- 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, c sect x 2, cholecystomy Clinic Chart notes appendectomy Family Medical History Significant Family History: No Pertinent Family Hx Family History: Congenital heart disease G8 SISTER (HOLE IN HEART ) Neoplasm 19 MOTHER (STOMACH ) G8 BROTHER (STOMACH) Review of Systems ([facility]) Constitutional: No chills; dizziness; No fever, No malaise, No weakness EENTM: no symptoms reported; No hearing loss, No blurred vision, No double vision Respiratory: no symptoms reported; No cough, No dyspnea on exertion, No short of breath Cardiovascular: no symptoms reported; No chest pain, No edema, No palpitations Gastrointestinal: no symptoms reported; No abdominal pain, No constipation, No diarrhea, No loss of appetite, No melena, No nausea Genitourinary: no symptoms reported; No dysuria, No frequency, No hematuria Musculoskeletal: no symptoms reported Skin: no symptoms reported Psychiatric/Neurological: Headache Reviewed Test Results Reviewed Test Results Lab Laboratory Tests Test 08/11/22 06:17 Range/Units Triglycerides Level 64 <150 MG/DL Cholesterol Level 168 < 200 MG/DL LDL Cholesterol Direct 97 1-129 MG/DL VLDL Cholesterol 13 5-40 MG/DL HDL Cholesterol 51 40-60 MG/DL Physical Exam-([facility]) Physical Exam Vital Signs VS - Last 72 Hours, by Label 08/10/22 08/10/22 08/10/22 08/10/22 15:48 22:20 22:20 22:21 Temp 37.4 36.0 Pulse 89 84 83 Resp 22 20 14 B/P (MAP) 147/126 (133) 165/86 (112) 139/87 Pulse Ox 94 95 95 97 O2 Delivery Room Air Room Air Room Air Room Air 08/10/22 08/11/22 08/11/22 08/11/22 22:47 00:27 03:57 07:17 Temp 36.0 36.6 36.7 36.2 Pulse 84 85 87 83 Resp 16 18 18 B/P (MAP) 125/64 (84) 138/80 (99) 124/79 (94) Pulse Ox 95 93 93 95 O2 Delivery Room Air Room Air Room Air FiO2 21 08/11/22 08/11/22 08/11/22 09:30 11:19 15:28 Temp 36.5 36.4 Pulse 80 79 Resp 18 18 B/P (MAP) 124/59 (80) 145/73 (97) Pulse Ox 95 95 100 O2 Delivery Room Air Room Air Room Air O2 Flow Rate Capillary Refill : Less Than 3 Seconds General Appearance: WD/WN, no apparent distress HEENT: PERRL/EOMI Neck: non-tender, full range of motion, supple Respiratory: chest non-tender, lungs clear, normal breath sounds, no respiratory distress, no accessory muscle use Cardiovascular: normal peripheral pulses, regular rate, rhythm, no edema, no murmur Gastrointestinal: normal bowel sounds, non tender, soft Back: no CVA tenderness, no vertebral tenderness Extremities: normal range of motion, non-tender, normal inspection, no pedal edema, no calf tenderness, normal capillary refill Neurologic/Psychiatric: key account representative II-XII nml as tested, no motor/sensory deficits, alert, normal mood/affect, oriented x 3 Skin: normal color, warm/dry Lymphatic: no adenopathy Assessment/Plan Assessment/Plan Admission Status: Observation (1) Vertigo Status: Acute Assessment & Plan: - Dr Griffiths spoke with neurology and they recommended trying Depakote in the AM and doing MRI if not improved, patient still having symptoms will order both, blood pressure trending down (2) Hypertension Status: Chronic Assessment & Plan: - Restarted home meds, blood pressure improving, unc ontrolled in ER Qualifiers: Qualified Codes: I10 - Essential (primary) hypertension (3) Headache Status: Acute Qualifiers: Qualified Codes: R51.9 - Headache, unspecified (4) COPD (chronic obstructive pulmonary disease) Status: Chronic Assessment & Plan: - Well controlled at this time, continue home meds Qualifiers: Qualified Codes: J41.0 - Simple chronic bronchitis (5) Hypothyroidism Status: Chronic Assessment & Plan: - TSH pending Qualifiers: Qualified Codes: E03.9 - Hypothyroidism, unspecified Clinical Quality Measures AMI/AHF: ASA po Prior to arrival: No BRIONNA SAUCEDA MD Aug 11, 2022 17:24
[2022-08-11] MEDS: DICYCLOMINE 10 MG (BENTYL) CAP PO SCH (20:50)
[2022-08-11] MEDS: RT--FLUTICASONE/SALMETEROL 232-14 (AIRDUO RespiCLICK) IH SCH (20:51)
[2022-08-11] MEDS ORDERED: NON-FORMULARY MEDICATION 1 EA EA (Fluticasone Propion/Salmeterol (Fluticasone-Salmeterol 5 INH SCH (21:00)
[2022-08-11] MEDS ORDERED: traZODone 100 MG (DESYREL) TAB PO SCH (21:00)
[2022-08-11] MEDS ORDERED: NON-FORMULARY MEDICATION 1 EA EA (Dicyclomine HCl 20 MG) PO SCH (21:00)
[2022-08-12 04:00] VITALS: BP 110/65
[2022-08-12] MEDS: DICYCLOMINE 10 MG (BENTYL) CAP PO SCH ×2 (05:31→12:13)
[2022-08-12] MEDS: LACTATED RINGERS 1,000 ML IV SCH (05:31)
[2022-08-12] MEDS: fentaNYL INJ 100 MCG/2 ML AMP IV PRN (05:55)
[2022-08-12 05:57] LABS: BASOPHILS % (AUTO) 0 % (0-10); EOSINOPHILS # (AUTO) 0.1 10^3/uL (0.0-0.3); EOSINOPHILS % (AUTO) 1 % (0-10); HEMATOCRIT 37 % (35-52); LYMPHOCYTES # (AUTO) 2.4 10^3/uL (1.0-4.0); LYMPHOCYTES % (AUTO) 36 % (12-44); MEAN CORPUSCULAR HEMOGLOBIN 29 pg (25-34); MEAN CORPUSCULAR HGB CONC 32 g/dL (32-36); MEAN CORPUSCULAR VOLUME 90 fL (80-99); MEAN PLATELET VOLUME 8.4 fL (9.0-12.2); MONOCYTES # (AUTO) 0.3 10^3/uL (0.0-1.0); MONOCYTES % (AUTO) 5 % (0-12); NEUTROPHILS # (AUTO) 3.8 10^3/uL (1.8-7.8); NEUTROPHILS % (AUTO) 58 % (42-75); PLATELET COUNT 217 10^3/uL (130-400); WHITE BLOOD COUNT 6.6 10^3/uL (4.3-11.0)
[2022-08-12 06:02] LABS: ALBUMIN 3.6 GM/DL (3.2-4.5)
[2022-08-12 06:03] LABS: POTASSIUM 4.2 MMOL/L (3.6-5.0)
[2022-08-12 06:04] LABS: CALCIUM 8.7 MG/DL (8.5-10.1)
[2022-08-12 06:05] LABS: TOTAL PROTEIN 6.7 GM/DL (6.4-8.2)
[2022-08-12 06:07] LABS: BILIRUBIN,TOTAL 0.2 MG/DL (0.1-1.0)
[2022-08-12 06:09] LABS: CREATININE SERUM 0.79 MG/DL (0.60-1.30)
[2022-08-12 07:34] VITALS: BP 145/70
[2022-08-12] MEDS: RT--FLUTICASONE/SALMETEROL 232-14 (AIRDUO RespiCLICK) IH SCH (07:53)
[2022-08-12] MEDS ORDERED: UMECLIDINIUM BROMIDE (INCRUSE ELLIPTA) 7'S IH SCH (08:00)
[2022-08-12] MEDS: KETOROLAC 30 MG/ML VIAL IV PRN (08:17)
[2022-08-12] MEDS ORDERED: NON-FORMULARY MEDICATION 1 EA EA (Aripiprazole 5 MG) PO SCH (09:00)
[2022-08-12] MEDS ORDERED: PANTOPRAZOLE 40 MG (PROTONIX) TAB PO SCH (09:00)
[2022-08-12] MEDS ORDERED: PROPRANOLOL ER 80 MG CAP (INDERAL LA) PO SCH (09:00)
[2022-08-12] MEDS ORDERED: [UNRECOGNIZED DRUG - OTHER] INH SCH (09:00)
[2022-08-12] MEDS ORDERED: AtorvaSTATin TABLET 10 MG TABLET PO SCH (09:00)
[2022-08-12] MEDS ORDERED: MONTELUKAST 10 MG (SINGULAIR) TAB PO SCH (09:00)
[2022-08-12] MEDS ORDERED: NON-FORMULARY MEDICATION 1 EA EA (Cetirizine HCl 10 MG) PO SCH (09:00)
[2022-08-12] MEDS ORDERED: SERTRALINE 100 MG (ZOLOFT) TAB PO SCH (09:00)
[2022-08-12] MEDS ORDERED: lisINopril 40 MG (PRINIVIL) TABLET PO SCH (09:00)
[2022-08-12] MEDS ORDERED: NON-FORMULARY MEDICATION 1 EA EA (Lovastatin 40 MG) PO SCH (09:00)
[2022-08-12] MEDS ORDERED: TIOTROPIUM BROMIDE INH SCH (09:00)
[2022-08-12] MEDS ORDERED: amLODIPine 10 MG (NORVASC) TAB PO SCH (09:00)
[2022-08-12] MEDS ORDERED: LORATADINE (CLARITIN) 10 MG TAB PO SCH (09:00)
[2022-08-12 11:17] VITALS: BP 166/80
--- NOTE | 2022-08-12 12:04 | Discharge Summary ---
Diagnosis/Chief Complaint Date of Admission Aug 10, 2022 at 22:18 Date of Discharge Admission Diagnosis Admission Diagnosis See problem list Discharge Diagnosis See below Problems/Diagnosis: (1) Vertigo Assessment & Plan: - Dr Griffiths spoke with neurology and they recommended trying Depakote in the AM and doing MRI if not improved, patient still having symptoms will order both, blood pressure trending down Status: Acute (2) Hypertension Assessment & Plan: - Restarted home meds, blood pressure improving, uncontrolled in ER 08/12: Discussed the importance of getting blood pressure under control Qualifiers: Qualified Codes: I10 - Essential (primary) hypertension Status: Chronic (3) Headache Qualifiers: Qualified Codes: R51.9 - Headache, unspecified Status: Acute (4) COPD (chronic obstructive pulmonary disease) Assessment & Plan: - Well controlled at this time, continue home meds Qualifiers: Qualified Codes: J41.0 - Simple chronic bronchitis Status: Chronic (5) Hypothyroidism Assessment & Plan: - TSH pending Qualifiers: Qualified Codes: E03.9 - Hypothyroidism, unspecified Status: Chronic Chief Complaint/HPI Chief Complaint/HPI 61 yo F that presented with vertigo of 3 days duration. States that she feels the room spinning. Nothing she has done has improved symptoms and nothing has made it worse. She has a h/o migraines and currently has a CAMACHO but states that it feels different then her normal migraines. States that she did have a fall several days ago because of the spinning. She has not been started on any new medications and has not missing any doses of her current medications. She does not have any other associated symptoms like weakness or numbness in her extremities. She has never had his previously. Discharge Summary-Simple/Stand Consultations Discharge Physical Examination Allergies: Coded Allergies: Penicillins (Verified Allergy, Unknown, 08/20/15) tuberculin, purified protein deriva (Verified Adverse Reaction, Mild, 08/20/15) Vitals & I&Os Vital Sign - Last 12Hours Date Time Temp Pulse Resp B/P (MAP) Pulse Ox O2 Delivery O2 Flow Rate FiO2 08/12/22 07:53 100 Room Air 08/12/22 07:34 36.4 73 16 145/70 (95) 08/12/22 04:00 2.00 08/10/22 22:47 21 Intake and Output 08/12/22 00:00 Intake Total 910 ml Output Total 1110 ml Balance -200 ml General Appearance: Alert, Oriented X3, No Acute Distress Respiratory: Clear to Auscultation, Normal Air Movement Cardiovascular: Regular Rate, No Murmurs Abdominal: Normal Bowel Sounds, Soft, No Tenderness, No Masses Extremities: No Edema, No Tenderness/Swelling Psych/Mental Status: Mental Status NL, Mood NL Hospital Course See final discharge diagnosis. Discharge Condition at discharge Stable on discharge Instructions to patient/family Please see electronic discharge instructions given to patient. Discharge Medications Reviewed and agree with Discharge Medication list on patient's Discharge Instr uction sheet Clinical Quality Measures AMI/AHF: ASA po Prior to arrival: No BRIONNA HARLEY MD Aug 12, 2022 12:04
--- NOTE | 2022-08-12 12:13 | Discharge Summary ---
Discharge [facility] Reconcile Patient Problems Problems Reviewed?: Yes Discharge Medications New, Converted or Re-Newed RX: Transmitted to Pharmacy Continued Medications: Albuterol Sulfate (Ventolin Hfa) 8.5 Gm Hfa.aer.ad 2 PUFF INH Q6H PRN for SHORTNESS OF BREATH, INHALER Amlodipine Besylate (Amlodipine Besylate) 10 Mg Tablet 10 MG PO DAILY, TAB Aripiprazole (Aripiprazole) 5 Mg Tablet 5 MG PO DAILY, TAB Cetirizine HCl (Cetirizine HCl) 10 Mg Tablet 10 MG PO DAILY, TAB Dicyclomine HCl (Dicyclomine HCl) 20 Mg Tablet 20 MG PO ACHS, TAB Fluticasone Propion/Salmeterol (Fluticasone-Salmeterol 500-50) 500 Mcg-50 Mcg/Dose Blst.w.dev 1 PUFF INH BID, EA Fluticasone Propionate (Fluticasone Propionate) 50 Mcg/Actuation [place].susp 2 SPRAY NSEACH DAILY, EA Ipratropium/Albuterol Sulfate (Iprat-Albut 0.5-3(2.5) mg/3 ml) 0.5 Mg-3 Mg (2.5 Mg Base)/3 Ml Ampul.neb 3 ML NEB BID, EA Lisinopril (Lisinopril) 40 Mg Tablet 40 MG PO DAILY, TAB Lovastatin (Lovastatin) 40 Mg Tablet 40 MG PO DAILY, TAB Montelukast Sodium (Montelukast Sodium) 10 Mg Tablet 10 MG PO DAILY, TAB Pantoprazole Sodium (Pantoprazole Sodium) 40 Mg Tablet.dr 40 MG PO DAILY, TAB Propranolol HCl (Propranolol HCl ER) 80 Mg Cap.sa.24h 80 MG PO DAILY, CAP Sertraline HCl (Sertraline HCl) 100 Mg Tablet 100 MG PO DAILY, TAB Tiotropium [place] (Spiriva Respimat 2.5MCG/ACTUATION) 2.5 Mcg/Actuation Mist.inhal 1 PUFF INH DAILY, EA Trazodone HCl (Trazodone HCl) 100 Mg Tablet 100 MG PO HS, TAB Patient Instructions Goal/Follow Up Appt: F.u 1-2 weeks with PCP Activity & Diet Discharge Diet: No Restrictions Activity as Tolerated: Yes BRIONNA HARLEY MD Aug 12, 2022 12:11
== END 2022-08-12 12:04 | disposition home or self-care (01) ==
LOC: EDUNIT# 15:45 → ER 15:48 → 4TH 22:18 → UNDOADMOB 22:18 → 4TH 22:25 → UNDODISOB 08-12 12:04
PROVIDERS: ADMIT Family Medicine; ATTEND Family Medicine
DX: R42 Dizziness and giddiness (principal); R51.9 Headache, unspecified; I10 Essential (primary) hypertension; J44.1 Chronic obstructive pulmonary disease with (acute) exacerbation; E03.9 Hypothyroidism, unspecified; Z77.22 Contact with and (suspected) exposure to environmental tobacco smoke (acute) (chronic)
CPT/HCPCS: 70496; 70498; 70551; 71045; 80053 ×2; 80061; 81000; 82947; 83735; 83874; 84443; 84484; 85025 ×2; 85610; 85730; 87636; 93005; 94640 ×2; 94760 ×2; 96361 ×2; 96376 ×2; 99284; G0378; 36415; 96365; 96375